=== PATIENT | female | born 1945 | race Caucasian/White ===

== ENCOUNTER → 2020-04-08 | Outpatient (CLI) | payer MEDICARE ==
[~2020-04-08] MED LIST: ALBU0.632 IH; ALBU8.5H2 PO; ATOR10TA66 PO; AZIT-21 PO; CATHETER FLUSH 10 ML SYR IV PRN; CEFD300C PO; GLIP5TAB13 PO; HOLD METFORMIN - RECEIVED CONTRAST 20 ML VIAL IV SCH; HYDR-34 PO; HYDR-3816 PO; IOHEXOL 350 MG/ML 150 ML (OMNIPAQUE 350) VIAL IV ONE; LOSA100T7 PO; LVT.1T PO; METF1000 PO; METO50TA2 PO; NS 100 ML (IVPB) BAG IV ONE; RANI150C11 PO; [UNRECOGNIZED DRUG - OTHER]
[2020-04-08 09:19] LABS: CREATININE SERUM 1.03 MG/DL (0.60-1.30)
--- NOTE | 2020-04-08 10:55 | Diagnostic Imaging Report ---
INDICATION: Essential hypertension and diabetes. Pre and postcontrast axial imaging through the abdomen, pelvis and bilateral lower extremities was performed. CT angiography protocol was utilized. Multiplanar, 3-D and MIP reformations were performed. The lung bases are clear. No discrete liver mass is detected. There are small stones within the gallbladder. No biliary ductal dilatation is seen. The pancreas and spleen are unremarkable apart from a low density in the lower pole of the spleen measuring 19 mm. This was not well-seen on prior CT from [address] was done without contrast. No adrenal mass is identified. Bilateral renal calcifications are noted which are likely combination of vascular calcifications and nephrolithiasis. There is a large ovoid calculus in the left renal pelvis measuring 12 mm x 7 mm. No ureteral calculi or hydronephrosis is detected. The small and large bowel loops are normal caliber. There is no ascites. The uterus and ovaries are unremarkable. The patient has an aorto biiliac graft. 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 The graft appears to be patent. Iliac limbs appear to be widely patent. In addition, the patient does have a right femoral-popliteal graft which appears to be widely patent. The right popliteal artery is patent. There is a moderate amount of calcified plaque in the popliteal. The anterior tibial artery is patent at its origin. This appears to occlude at the mid calf. The peroneal and and posterior tibial arteries appear to be patent to the level of the ankle on the right. On the left there is calcified plaque and multifocal disease throughout the SFA but this appears to be patent. There is multifocal disease in the popliteal artery on the left with calcified plaque. Anterior tibial artery is patent at the origin but occludes at the level of the mid calf. The peroneal and posterior tibial arteries on the left appear to be patent to the level of the ankles. IMPRESSION: 1. Aorto bifemoral graft is patent. The right femoral-popliteal graft is patent. There is multifocal disease bilaterally, as described with a two-vessel runoff at the ankles bilaterally. 2. Bilateral nephrolithiasis with large calculus in the left renal pelvis. No hydronephrosis is detected. 3. Cholelithiasis. Dictated by: Dictated on workstation # [id number]
== END ==
LOC: RAD 08:47
PROVIDERS: ATTEND Internal Medicine Cardiovascular Disease
DX: I10 Essential (primary) hypertension (principal); E11.9 Type 2 diabetes mellitus without complications; E78.2 Mixed hyperlipidemia; I73.9 Peripheral vascular disease, unspecified; K80.20 Calculus of gallbladder without cholecystitis without obstruction; N20.0 Calculus of kidney
CPT/HCPCS: 36415; 75635; 82565; 84520

== ENCOUNTER 2020-05-01 11:24 | Emergency (ER) | payer MEDICARE ==
[~2020-05-01] VITALS: Ht 160 cm; Wt 68.1 kg
[~2020-05-01 11:24] MED LIST changes: -CATHETER FLUSH 10 ML SYR IV PRN; -HOLD METFORMIN - RECEIVED CONTRAST 20 ML VIAL IV SCH; -IOHEXOL 350 MG/ML 150 ML (OMNIPAQUE 350) VIAL IV ONE; -NS 100 ML (IVPB) BAG IV ONE
--- NOTE | 2020-05-01 11:48 | ED Upper Extremity ---
General Stated Complaint: L ARM PAIN Source: patient Exam Limitations: no limitations History of Present Illness Date Seen by Provider: May 01, 2020 Time Seen by Provider: 11:45 Initial Comments To ER with left arm pain from the mid forearm up to the middle left chest radiating through to the back. Pain is slightly worsened with movement of the arm. It been present for about 3 weeks since she fell out of the camper. She does report some intermittent nausea but no diaphoresis or palpitations. She is from [facility] here visiting her daughter. She is told she has not arteries in her legs. Onset: other (3 weeks ago) Severity: moderate Pain/Injury Location: left shoulder, left arm Method of Injury: fell Modifying Factors: Worse With Movement Allergies and Home Medications Allergies Coded Allergies: No Known Drug Allergies (Unverified , 02/18/15) Home Medications Albuterol Sulfate 8.5 Gm Aer.w.adap, 1 PUFF PO Q4H PRN for SHORTNESS OF BREATH, (Reported) Atorvastatin Calcium 10 Mg Tablet, 10 MG PO DAILY, (Reported) Azithromycin 250 Mg Tab, 2 TAB PO DAILY Prescribed by: DARLENE MILLARD on 02/22/15 1244 Cefdinir 300 Mg Capsule, 300 MG PO BID Prescribed by: DARLENE MILLARD on 02/22/15 1244 Glipizide 5 Mg Tablet, 5 MG PO DAILY, (Reported) Hydrocodone Bit/Acetaminophen 1 Tab Tablet, 1 TAB PO QID PRN for PAIN, (Reported) Hydrocodone Bit/Acetaminophen 1 Ea Tablet, 1-2 EACH PO Q6H PRN for PAIN Prescribed by: GIANFRANCO MARINELLI on 03/07/15 1011 Levothyroxine Sodium 100 Mcg Tablet, 100 MCG PO DAILY, (Reported) Metformin Hcl 1,000 Mg Tablet, 1,000 MG PO BID, (Reported) Metoprolol Tartrate 50 Mg Tablet, 50 MG PO BID, (Reported) Ranitidine Hcl 150 Mg Capsule, 150 MG PO DAILY PRN for HEARTBURN, (Reported) Patient Home Medication List Home Medication List Reviewed: Yes Review of Systems Constitutional: see HPI EENTM: see HPI Respiratory: no symptoms reported Cardiovascular: see HPI, chest pain Genitourinary: no symptoms reported Musculoskeletal: see HPI Skin: no symptoms reported Psychiatric/Neurological: No Symptoms Reported Past Simdlva-Zufrub-Ghajpf Hx Patient Social History Recent Foreign Travel: No Contact w/Someone Who Travel: No Immunizations Up To Date Date of Pneumonia Vaccine: February 18, 2011 Seasonal Allergies Seasonal Allergies: No Past Medical History Appendectomy, Vascular Surgery Pneumonia, Sleep Apnea, COPD High Cholesterol, Hypertension Reproductive Disorders: No Renal Failure Abdominal Hernia, Gastroesophageal Reflux Arthritis Hyperthyroidism, Diabetes, Non-Insulin dep Cataract Loss of Vision: Denies Hearing Impairment: Hard of Hearing Family Medical History Abdominal aortic aneurysm 19 MOTHER G8 SISTER G8 SISTER Congenital heart disease 19 FATHER Physical Exam Vital Signs Vital Signs - First Documented 05/01/20 11:28 Temp 36.1 Pulse 64 Resp 18 B/P (MAP) 192/72 (112) Pulse Ox 97 Capillary Refill : Height, Weight, BMI Height: 5'3.00" Weight: 149lbs. 5.0oz. 67.779567kr; BMI Method:Stated General Appearance: WD/WN, no apparent distress, other (alert and oriented. Blo od pressure elevated at 192/72. Her right radial pulse is +3, left radial pulse nonpalpable. Both hands are warm to touch, the left may be a little more pale than the right. Given the left-sided chest pain that radiates through to the back with a pulse deficit I will get a CT angiogram. She does report a history of kidney dysfunction. I discussed with her the risks of the IV contrast worsening kidney function but the importance of obtaining a good study to evaluate the aorta/subclavian artery to ensure there is no dissection. She agrees to proceed.) HEENT: PERRL/EOMI, normal ENT inspection Neck: non-tender, full range of motion Cardiovascular: regular rate, rhythm, no murmur Respiratory: no respiratory distress, no accessory muscle use Gastrointestinal: normal bowel sounds, non tender, soft Shoulder: normal inspection, non-tender, normal ROM (she has normal range of motion of the left shoulder without swelling deformity or ecchymosis) Elbow/Forearm: normal inspection, non-tender Wrist: Yes normal inspection, Yes non-tender Neurologic/Psychiatric: alert, normal mood/affect, oriented x 3 Skin: normal color, warm/dry Progress/Results/Core Measures Results/Orders Lab Results Laboratory Tests Test 05/01/20 11:44 Range/Units White Blood Count 6.7 4.3-11.0 10^3/uL Red Blood Count 4.19 L 4.35-5.85 10^6/uL Hemoglobin 12.7 11.5-16.0 G/DL Hematocrit 39 35-52 % Mean Corpuscular Volume 93 80-99 FL Mean Corpuscular Hemoglobin 30 25-34 PG Mean Corpuscular Hemoglobin Concent 33 32-36 G/DL Red Cell Distribution Width 13.1 10.0-14.5 % Platelet Count 207 130-400 10^3/uL Mean Platelet Volume 11.2 H 7.4-10.4 FL Neutrophils (%) (Auto) 61 42-75 % Lymphocytes (%) (Auto) 29 12-44 % Monocytes (%) (Auto) 7 0-12 % Eosinophils (%) (Auto) 2 0-10 % Basophils (%) (Auto) 0 0-10 % Neutrophils # (Auto) 4.1 1.8-7.8 X 10^3 Lymphocytes # (Auto) 2.0 1.0-4.0 X 10^3 Monocytes # (Auto) 0.5 0.0-1.0 X 10^3 Eosinophils # (Auto) 0.2 0.0-0.3 10^3/uL Basophils # (Auto) 0.0 0.0-0.1 10^3/uL Sodium Level 141 135-145 MMOL/L Potassium Level 4.7 3.6-5.0 MMOL/L Chloride Level 107 98-107 MMOL/L Carbon Dioxide Level 24 21-32 MMOL/L Anion Gap 10 5-14 MMOL/L Blood Urea Nitrogen 19 H 7-18 MG/DL Creatinine 1.12 0.60-1.30 MG/DL Estimat Glomerular Filtration Rate 47 BUN/Creatinine Ratio 17 Glucose Level 280 H 70-105 MG/DL Calcium Level 9.2 8.5-10.1 MG/DL Corrected Calcium 9.4 8.5-10.1 MG/DL Total Bilirubin 0.6 0.1-1.0 MG/DL Aspartate Amino Transf (AST/SGOT) 16 5-34 U/L Alanine Aminotransferase (ALT/SGPT) 18 0-55 U/L Alkaline Phosphatase 91 40-136 U/L Troponin I < 0.028 <0.028 NG/ML Total Protein 7.2 6.4-8.2 GM/DL Albumin 3.8 3.2-4.5 GM/DL My Orders Orders - MAURILIO HARO NO EXPERIENCE Cbc With Automated Diff (05/01/20 11:40) Comprehensive Metabolic Panel (05/01/20 11:40) Ct Angio Chest W (05/01/20 11:40) Ed Iv/Invasive Line Start (05/01/20 11:40) Iohexol Injection (Omnipaque 350 Mg/Ml 1 (05/01/20 12:00) Received Contrast (Hold Metformin- Contr (05/01/20 12:00) Ns (Ivpb) (Sodium Chloride 0.9% Ivpb Bag (05/01/20 12:00) Ns Iv 1000 Ml (Sodium Chloride 0.9%) (05/01/20 12:00) Labetalol Injection (Normodyne Injection (05/01/20 12:00) Troponin I (05/01/20 12:12) Ekg Tracing (05/01/20 12:12) Us Left Up Ext Arterial 31638 (05/01/20 12:32) Medications Given in ED Current Medications Medications Dose Ordered Sig/Isa Route Start Time Stop Time Status Last Admin Dose Admin Iohexol 100 ml ONCE ONCE IV 05/01/20 12:00 05/01/20 12:01 DC 05/01/20 12:18 80 ML Labetalol HCl 10 mg ONCE ONCE IV 05/01/20 12:00 05/01/20 12:01 DC 05/01/20 12:26 10 MG Sodium Chloride 100 ml ONCE ONCE IV 05/01/20 12:00 05/01/20 12:01 DC 05/01/20 12:18 80 ML Vital Signs/I&O 05/01/20 11:28 Temp 36.1 Pulse 64 Resp 18 B/P (MAP) 192/72 (112) Pulse Ox 97 Diagnostic Imaging Diagonstic Imaging: CT Comments NAME: MARTHA RICKS [facility] REC#: [id number] PT STATUS: REG ER : 1945 PHYSICIAN: MAURILIO HARO APRN ADMIT DATE: 05/01/20/ER Signed Date of Exam:05/01/20 CT ANGIO CHEST W PROCEDURE: CT angiography of the chest with contrast. TECHNIQUE: Multiple contiguous axial images were obtained through the chest after uneventful bolus administration of intravenous contrast. 3D reconstructed CTA MIP acquisitions were also performed. Auto Exposure Controls were utilized during the CT exam to meet ALARA standards for radiation dose reduction. INDICATION: Shoulder pain. Shortness of breath. Fall 2 weeks ago. Weak pulse in the left arm. COMPARISON: Chest radiograph on 03/18/2015. FINDINGS: Diffuse atherosclerotic plaque is seen throughout the aorta and major arch vessels. There is atherosclerotic plaque throughout the left subclavian artery without evidence of focal stenosis. No evidence of dissection or aneurysm in the thoracic aorta. No evidence of pulmonary embolism in the pulmonary arteries. The heart size is within normal limits. No pericardial effusion is present. There is no mediastinal, hilar, or axillary lymphadenopathy. Centrilobular emphysema is noted, greatest in the apices. A nodule is visualized in the right lower lobe measuring 0.6 cm. There are no focal areas of consolidation. No central endobronchial obstructing lesions are identified. There is no pleural effusion or pneumothorax. The osseous structures demonstrate no acute abnormalities. There is thickening of the gallbladder. The liver appears prominent. No focal hepatic lesions are seen. No intra or extrahepatic biliary dilation is appreciated on this exam. A calculus is seen in the left renal pelvis measuring 1.1 cm with associated thickening of the wall of the collecting system. Both adrenal glands are unremarkable. IMPRESSION: 1. No evidence of dissection or aneurysm involving the thoracic aorta. There is atherosclerotic plaque throughout the thoracic aorta and great arch vessels. No focal stenosis is seen, particularly no hemodynamically significant stenosis of the left subclavian artery. 2. Calculus in the left renal pelvis measuring 1.1 cm with associated thickening of the wall of the collecting system on the left. This may represent chronic partially occlusive renal calculi. Recommend correlation with patient history and symptoms. 3. Nonspecific gallbladder wall thickening. No CT evidence of acute cholecystitis or cholelithiasis. Consider liver/gallbladder ultrasound to further evaluate. 4. Centrilobular emphysema. No focal consolidation or pulmonary masses. A nodule is present in the right lower lobe measuring 0.6 cm. Recommend followup in 6-12 months to document stability. 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 The ulnar artery has good flow. I do believe that her shoulder pain is muscular skeletal in nature now that we've excluded other life- threatening causes. We'll give her a prescription for Robaxin and topical Voltaren cream and discharged home. Impression Primary Impression: Left shoulder pain Qualified Codes: M25.512 - Pain in left shoulder Disposition: 01 HOME, SELF-CARE Condition: Stable Departure-Patient Inst. Decision time for Depature: 14:12 Referrals: ANGELA GREER MD (PCP/Family) Primary Care Physician Patient Instructions: Joint Pain Add. Discharge Instructions: 1. Muscle relaxers and topical anti-inflammatory cream as directed. Follow-up with your doctor next week. Return to ER for any concerns. Scripts Diclofenac Sodium (Voltaren) 100 Gm Gel..gram. 100 GM TP Q6H PRN for PAIN-MODERATE (5-7), #2 TUBE Prov: MAURILIO HARO APRN 05/01/20 Methocarbamol (Robaxin-750) 750 Mg Tablet 750 MG PO Q6H PRN for PAIN-MODERATE (5-7), #20 TAB Prov: MAURILIO HARO APRN 05/01/20 MAURILIO HARO APRN May 01, 2020 11:48
[2020-05-01 11:50] LABS: BASOPHILS % (AUTO) 0 % (0-10); EOSINOPHILS # (AUTO) 0.2 10^3/uL (0.0-0.3); EOSINOPHILS % (AUTO) 2 % (0-10); HEMATOCRIT 39 % (35-52); HEMOGLOBIN 12.7 G/DL (11.5-16.0); LYMPHOCYTES % (AUTO) 29 % (12-44); MEAN CORPUSCULAR HEMOGLOBIN 30 PG (25-34); MEAN CORPUSCULAR HGB CONC 33 G/DL (32-36); MEAN CORPUSCULAR VOLUME 93 FL (80-99); MEAN PLATELET VOLUME 11.2 FL (7.4-10.4); MONOCYTES # (AUTO) 0.5 X 10^3 (0.0-1.0); MONOCYTES % (AUTO) 7 % (0-12); NEUTROPHILS # (AUTO) 4.1 X 10^3 (1.8-7.8); NEUTROPHILS % (AUTO) 61 % (42-75); PLATELET COUNT 207 10^3/uL (130-400); RED CELL DISTRIBUTION WIDTH 13.1 % (10.0-14.5); WHITE BLOOD COUNT 6.7 10^3/uL (4.3-11.0)
--- NOTE | 2020-05-01 11:59 | NUR ---
TO CT PER W/C
[2020-05-01] MEDS ORDERED: NS IV 1000 ML 1,000 ML IV SCH (12:00)
[2020-05-01] MEDS ORDERED: NS 100 ML (IVPB) BAG IV ONE (12:00)
[2020-05-01] MEDS ORDERED: HOLD METFORMIN - RECEIVED CONTRAST 20 ML VIAL IV SCH (12:00)
[2020-05-01] MEDS ORDERED: LABETALOL HCL 20 MG/4 ML VIAL IV ONE ×2 (12:00→14:30)
[2020-05-01] MEDS ORDERED: IOHEXOL 350 MG/ML 100 ML (OMNIPAQUE 350) VIAL IV ONE (12:00)
[2020-05-01 12:01] LABS: ALBUMIN 3.8 GM/DL (3.2-4.5); POTASSIUM 4.7 MMOL/L (3.6-5.0)
[2020-05-01 12:03] LABS: CALCIUM 9.2 MG/DL (8.5-10.1)
[2020-05-01 12:04] LABS: TOTAL PROTEIN 7.2 GM/DL (6.4-8.2)
[2020-05-01 12:06] LABS: BILIRUBIN,TOTAL 0.6 MG/DL (0.1-1.0)
[2020-05-01 12:07] LABS: CREATININE SERUM 1.12 MG/DL (0.60-1.30)
--- NOTE | 2020-05-01 12:12 | NUR ---
CALLED AND GAVE DAUGHTER CORNELIUS LAYNE.
--- NOTE | 2020-05-01 12:45 | Diagnostic Imaging Report ---
PROCEDURE: CT angiography of the chest with contrast. TECHNIQUE: Multiple contiguous axial images were obtained through the chest after uneventful bolus administration of intravenous contrast. 3D reconstructed CTA MIP acquisitions were also performed. Auto Exposure Controls were utilized during the CT exam to meet ALARA standards for radiation dose reduction. INDICATION: Shoulder pain. Shortness of breath. Fall 2 weeks ago. Weak pulse in the left arm. COMPARISON: Chest radiograph on 03/18/2015. FINDINGS: Diffuse atherosclerotic plaque is seen throughout the aorta and major arch vessels. There is atherosclerotic plaque throughout the left subclavian artery without evidence of focal stenosis. No evidence of dissection or aneurysm in the thoracic aorta. No evidence of pulmonary embolism in the pulmonary arteries. The heart size is within normal limits. No pericardial effusion is present. There is no mediastinal, hilar, or axillary lymphadenopathy. Centrilobular emphysema is noted, greatest in the apices. A nodule is visualized in the right lower lobe measuring 0.6 cm. There are no focal areas of consolidation. No central endobronchial obstructing lesions are identified. There is no pleural effusion or pneumothorax. The osseous structures demonstrate no acute abnormalities. There is thickening of the gallbladder. The liver appears prominent. No focal hepatic lesions are seen. No intra or extrahepatic biliary dilation is appreciated on this exam. A calculus is seen in the left renal pelvis measuring 1.1 cm with associated thickening of the wall of the collecting system. Both adrenal glands are unremarkable. IMPRESSION: 1. No evidence of dissection or aneurysm involving the thoracic aorta. There is atherosclerotic plaque throughout the thoracic aorta and great arch vessels. No focal stenosis is seen, particularly no hemodynamically significant stenosis of the left subclavian artery. 2. Calculus in the left renal pelvis measuring 1.1 cm with associated thickening of the wall of the collecting system on the left. This may represent chronic partially occlusive renal calculi. Recommend correlation with patient history and symptoms. 3. Nonspecific gallbladder wall thickening. No CT evidence of acute cholecystitis or cholelithiasis. Consider liver/gallbladder ultrasound to further evaluate. 4. Centrilobular emphysema. No focal consolidation or pulmonary masses. A nodule is present in the right lower lobe measuring 0.6 cm. Recommend followup in 6-12 months to document stability. Dictated by: Dictated on workstation # [id number]
--- OUTSIDE RECORDS SUMMARY | 2020-05-01 13:00 | XMS REPORT | Continuity of Care Document ---
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 Name Role Phone Es PERALTA, Aleksandr PP Unavailable Aleksandr Suggs MD PP Unavailable Es PERALTA, Aleksandr RP Unavailable Payers Payer name Insurance type Covered democrat ID Authorization(s ) [facility] Medicare Complete CI [id number] [facility] Medicare Complete CI [id number] Problems Condition Effective Dates (start - stop) Clinical Status Unknown Family History Family Member Diagnosis Age At Onset Status Mother Cardiovascular disease N Father Cardiovascular disease N Father Diabetes mellitus N Social History Type Description Quantity Date Captured Unknown Allergies, Adverse Reactions, Alerts Substance Reaction Severity Status No Known Allergies Unknown Active Medications Medication Instructions Dosage Effective Dates (start - stop) Sta tus Comments metformin 1,000 mg tablet TAKE 1 TABLET BY ORAL ROUTE 2 TIMES EVERY DAY WITH MORNING AND EVENING MEALS 1000 MG - Active glipizide 5 mg tablet TAKE 1 TABLET BY ORAL ROUTE 2 TIMES EVERY DAY BEFORE MEALS 5 MG - Active metoprolol tartrate 50 mg tablet TAKE 1 TABLET BY ORAL ROUTE 2 TIMES EVERY DAY WITH MEALS 50 MG - Active levothyroxine 100 mcg tablet take 1 tablet by oral route every day 100 MCG - Active losartan 100 mg tablet take 1 tablet by oral route every day 10 0 MG - Active Immunizations Vaccine Date Status Comments Fluvirin vaccine (split) (3 yrs or older) reese bakari - Note: [facility] 95491-914-58 - Completed reason: New Fluvirin vaccine (split) (3 yrs or older) ordere d - Completed reason: New Results Test Name Date and Time Measure Units Reference Range Abnormal F lag Comments Unknown Vital Signs Date / Time: Height Weight BMI Pulse Rate Blood Pressure Temperatu re Respiratory Rate Body Surface Area Head Circumference BMI percentile Unknown Procedures Procedure Date Unknown Encounters Encounter Description Practice Location Reason(s) For Visit Diagnose s Date Provider [facility], [employer] [address], [place], [id number], [place] tel:[phone] Aleksandr Suggs MD Type 2 d iabetes mellitus without complicationsOther hyperlipidemiaEssential (primary) hypertensionHypothyroidism, unspecifiedPyothorax without fistulaEncounter for immunization Es [place]. [address] [place] [address] [address], [facility] [address], [place], [address], [place]. tel:[phone] Counts Include [address] [employer] [address], [place], [address], [place] tel:[phone] Aleksandr Suggs MD Es [place]. [address] [place] [address] [address], [facility] [address], [place], [address], [place]. tel:[phone] [place] [address], [place], [address], [place] tel:[phone] Aleksandr Suggs MD Es [place]. [address] [place] [address] [address], [facility] [address], [place], [address], [place]. tel:[phone] [place] [address], [place], [address], [place] tel:[phone] Aleksandr Suggs MD Es [place]. [address] [place] [address] [address], [facility] [address], [place], [address], [place]. tel:[phone] Counts Include [address] [facility] [address], [place], [address], [place] tel:[phone] Aleksandr Suggs MD Es [place]. [address] [place] [address] [address], [facility] [address], [place], [address], [place]. tel:[phone] [place] [address], [place], [address], [place] tel:[phone] 15 Es [place]. [address] [facility], [facility] [address], [place], [place], [address], [place]. tel:[phone] [facility], [address] [place] [address] [address], [place], [address], [place] tel:[phone] Aleksandr Suggs MD EmpyemaH ypothyroidismDM type 2 (diabetes mellitus, type 2)DyslipidemiaHTN (hypertension) Es [place]. [address] [facility], [facility] [address], [place], [place], [id number], [place]. tel:[phone] Advance Directives Directive Yes / No Effective Date File Name Unknown
--- OUTSIDE RECORDS SUMMARY | 2020-05-01 13:00 | XMS REPORT ---
Author Author [facility] Address [address] [address] Care Team Providers Care Clinical Care Leader Name Role Phone NO, LOCAL PHYSICIAN Unavailable Unavailable DARLENE MILLARD Unavailable GUICHO PERALTA, JEANIE Ross Unavailable Unavailable Unavailable Unavailable Unavailable Unavailable Allergies The data below is from unstructured sources Allergen Type Severity Reaction Status Last Updated No Known Drug Allergies Active 02/18/15 Encounters Encounter Date Encounter Type Encounter Diagnosis Care Provider Facility Start: Emergency department JEANIE LINDO MD V [facility] 05-01-2020 patient visit [facility] Medical Equipment No Information Goals No Information Immunizations No Information Interventions No Information Medications No Information Payers No Information Plan of Treatment The data below is from unstructured sources Discharge Date 02/22/15 2:10pm Disposition 30 STILL A PATIENT Instructions/Education Provided Comm unity-acquired Pneumonia (GEN) Prescriptions See Medications Sectio n Discharge Date 03/07/15 11:38am Disposition 30 STILL A PATIENT Instructions/Education Provided Thor acotomy (DC) Forms Provided PDI Surgical Prescriptions See Medications Sectio n Referrals (Unspecified) 03/11/15 Reason(s) for Referral: 10:45AM for suture removal GIANFRANCO MARINELLI MD (Unspecified) 03/11/15 Address: [address] [place] [id number] Reason(s) for Referral: 1045AM Discharge Date 03/07/15 11:38am Disposition 30 STILL A PATIENT Instructions/Education Provided Thor acotomy (DC) Forms Provided PDI Surgical Prescriptions See Medications Sectio n Referrals (Unspecified) 03/11/15 Reason(s) for Referral: 10:45AM for suture removal GIANFRANCO MARINELLI MD (Unspecified) 03/11/15 Address: [address] [place] [id number] [phone] Reason(s) for Referral: 1045AM Problems No Information Procedures No Information Results Test Name Value Interpreta Reference Facilit Date tion Range y Time laboratory on 2020-05-01 Albumin [Mass/Vol] 3.8 g/dL Negative 3.2-4.5 PENDING -2 2-2 g/dL [address] 07:44-0 ([id number]) 400 ALP [Catalytic 91 U/L Negative 40-136 U/L PENDING activity/Vol] [facility] [address] [place] [address] 07:44-0 ([id number]) 400 ALT [Catalytic 18 U/L Negative 0-55 U/L PENDING activity/Vol] [facility] [address] [place] [address] 07:44-0 ([id number]) 400 Anion gap 10 mmol/L Negative 5-14 PENDING [Moles/Vol] mmol/L [address] 07:44-0 ([id number]) 400 AST [Catalytic 16 U/L Negative 5-34 U/L PENDING activity/Vol] [address] 07:44-0 ([id number]) 400 Basophils (Bld) 0.0 10*3/uL Negative 0.0-0.1 PENDING 05-01 [#/Vol] 10*3/uL [address] 07:44-0 ([id number]) 400 Basophils/100 WBC 0 % Negative 0-10 % PENDING 05-01 (Bld) [facility] [address] [place] [address] 07:44-0 ([id number]) 400 Bilirubin [Mass/Vol] 0.6 mg/dL Negative 0.1-1.0 PENDING -2 mg/dL [facility] [address] [place] [address] 07:44-0 ([id number]) 400 Calcium [Mass/Vol] 9.2 mg/dL Negative 8.5-10.1 PENDING 07-2 2-2 mg/dL [facility] [address] [place] [address] 07:44-0 ([id number]) 400 Calcium [Mass/Vol] 9.4 mg/dL Negative 8.5-10.1 PENDING 07-2 2-2 mg/dL [facility] [address] [place] [address] 07:44-0 ([id number]) 400 Chloride [Moles/Vol] 107 mmol/L Negative 98-107 PENDING 0 -22-2 mmol/L [facility] 07:44-0 ([id number]) 400 CO2 [Moles/Vol] 24 mmol/L Negative 21-32 PENDING mmol/L [facility] 020 [facility] 07:44-0 ([id number]) 400 Creatinine 1.12 mg/dL Negative 0.60-1.30 PENDING [Mass/Vol] mg/dL [facility] 020 [facility] 07:44-0 ([id number]) 400 Creatinine and 47 Invalid PENDING Glomerular Interpreta LOC[facility]IO 020 filtration tion Code N [facility] 07:44-0 rate.predicted panel ([id number]) 400 - Serum, Plasma or Blood Eosinophils (Bld) 0.2 10*3/uL Negative 0.0-0.3 PENDING [#/Vol] 10*3/uL [facility] 020 [facility] 07:44-0 ([id number]) 400 Eosinophils/100 WBC 2 % Negative 0-10 % PENDING (Bld) [facility] 020 [facility] 07:44-0 ([id number]) 400 Erythrocyte 13.1 % Negative 10.0-14.5 PENDING distribution width % LOCATIO 020 (RBC) [Ratio] [facility] 07:44-0 (80590) 400 Glucose [Mass/Vol] 280 mg/dL High 70-105 PENDING 04-11 2-2 mg/dL [facility] 020 [facility] 07:44-0 ([id number]) 400 Hematocrit (Bld) 39 % Negative 35-52 % PENDING [Volume fraction] [facility] 020 [facility] 07:44-0 ([id number]) 400 Hemoglobin (Bld) 12.7 g/dL Negative 11.5-16.0 PENDING [Mass/Vol] g/dL [facility] 020 [facility] 07:44-0 ([id number]) 400 Lymphocytes (Bld) 2.0 10*3/uL Negative 1.0-4.0 PENDING [#/Vol] 10*3 LOC[facility] 020 [facility] 07:44-0 (11073) 400 Lymphocytes/100 WBC 29 % Negative 12-44 % PENDING (Bld) [facility] 07:44-0 ([id number]) 400 MCH (RBC) [Entitic 30 pg Negative 25-34 pg PENDING 04-11 2-2 mass] [facility] Paula [facility] 07:44-0 ([id number]) 400 MCHC (RBC) 33 g/dL Negative 32-36 g/dL PENDING [Mass/Vol] [facility] 07:44-0 ([id number]) 400 MCV (RBC) [Entitic 93 Negative 80-99 PENDING 04-11 2-2 vol] [foz_us] [facility] Paula [facility] 07:44-0 (66790) 400 Monocytes (Bld) 0.5 10*3/uL Negative 0.0-1.0 PENDING 05-01 [#/Vol] 10*3 [facility] Paula [facility] 07:44-0 ([id number]) 400 Monocytes/100 WBC 7 % Negative 0-12 % PENDING 05-01 (Bld) [facility] Paula [facility] 07:44-0 (10630) 400 Neutrophils (Bld) 4.1 10*3/uL Negative 1.8-7.8 PENDING [#/Vol] 10*[address] 07:44-0 (75881) 400 Neutrophils/100 WBC 61 % Negative 42-75 % PENDING (Bld) [facility] Paula [facility] 07:44-0 ([id number]) 400 Platelet mean volume 11.2 High 7.4-10.4 PENDING (Bld) [Entitic vol] [foz_us] [facility] 07:44-0 (88715) 400 Platelets (Bld) 207 10*3/uL Negative 130-400 PENDING 05-01 [#/Vol] 10*3/uL [facility] Paula [facility] 07:44-0 (48433) 400 Potassium 4.7 mmol/L Negative 3.6-5.0 PENDING [Moles/Vol] mmol/L [facility] Paula [facility] 07:44-0 ([id number]) 400 Protein [Mass/Vol] 7.2 g/dL Negative 6.4-8.2 PENDING 04-11 2-2 g/dL [facility] 020 N [facility] 07:44-0 ([id number]) 400 RBC (Bld) [#/Vol] 4.19 10*6/uL Low 4.35-5.85 PENDING 10*6/uL LOC[facility]IO 020 N S 07:44-0 (30010) 400 Sodium [Moles/Vol] 141 mmol/L Negative 135-145 PENDING mmol/L LOC[facility]IO 020 N S 07:44-0 ([id number]) 400 Urea nitrogen 19 mg/dL High 7-18 mg/dL PENDING [Mass/Vol] [facility] 020 N [facility] 07:44-0 ([id number]) 400 Urea 17 mg/mg Invalid PENDING nitrogen/Creatinine Interpreta LOCATIO 020 [Mass ratio] tion Code N [facility] 07:44-0 (81897) 400 WBC (Bld) [#/Vol] 6.7 10*3/uL Negative 4.3-11.0 PENDING 10*3/uL [facility] 020 N [facility] 07:44-0 ([id number]) 400 Social History No Information Vital Signs The data below is from unstructured sources Vital Response Date/Time Temperature (Fahrenheit) 97.4 degree s F (97.6 - 99.5) Temperature (Calculated Celsius) 36. 42815 degrees C (36.4 - 37.5) Temperature Source Tympanic Pulse Rate (adult) 78 bpm (60 - 90) Respiratory Rate 20 bpm (12 - 24) O2 Sat by Pulse Oximetry 94 % (88 - 100) Blood Pressure 206/79 mm Hg Pain Pain Intensity 0 Height (Feet) 5 feet Height (Inches) 3.00 inches Height (Calculated Centimeters) 160. 207851 cm Weight (Pounds) 155 pounds Weight (Ounces) 0.3 oz Weight (Calculated Grams) 92198.323 gm Weight (Calculated Kilograms) 70.315 323 kilograms Calculated BMI 27.45 Vital Response Date/Time Temperature (Fahrenheit) 98.2 degree s F (97.6 - 99.5) Temperature (Calculated Celsius) 36. 39064 degrees C (36.4 - 37.5) Temperature Source Temporal Pulse Rate (adult) 62 bpm (60 - 90) Respiratory Rate 18 bpm (12 - 24) O2 Sat by Pulse Oximetry 95 % (88 - 100) Blood Pressure 170/73 mm Hg Pain Pain Intensity 0 Height (Feet) 5 feet Height (Inches) 3.00 inches Height (Calculated Centimeters) 160. 503857 cm Weight (Pounds) 149 pounds Weight (Ounces) 5.0 oz Weight (Calculated Grams) 72226.011 gm Weight (Calculated Kilograms) 67.727 011 kilograms Calculated BMI 26.74 Vital Response Date/Time Temperature (Fahrenheit) 98.2 degree s F (97.6 - 99.5) Temperature (Calculated Celsius) 36. 22809 degrees C (36.4 - 37.5) Temperature Source Temporal Pulse Rate (adult) 62 bpm (60 - 90) Respiratory Rate 18 bpm (12 - 24) O2 Sat by Pulse Oximetry 95 % (88 - 100) Blood Pressure 170/73 mm Hg Pain Pain Intensity 0 Height (Feet) 5 feet Height (Inches) 3.00 inches Height (Calculated Centimeters) 160. 987839 cm Weight (Pounds) 149 pounds Weight (Ounces) 5.0 oz Weight (Calculated Grams) 67523.011 gm Weight (Calculated Kilograms) 67.727 011 kilograms Calculated BMI 26.74 Functional Status The data below is from unstructured sources Query Response Date Faraz rded Comprehension Ability Understands Co ncepts February 18, 2015 8:05pm Query Response Date Faraz rded Comprehension Ability Understands Co ncepts March 06, 2015 4:00pm Query Response Date Faraz rded Comprehension Ability Understands Co ncepts March 06, 2015 4:00pm Mental Status No Information Advance Directives Directive Response Recor ded Date/Time Advance Directives No 3:31pm Health Care Power of Camper Assembler No 02/18/15 3:31pm Organ Donor No 02/18/15 3:31pm Resuscitation Status DNR-Pt Request 02/18/15 3:31pm Directive Response Recor ded Date/Time Advance Directives Yes 0 02/25/15 5:12pm Health Care Power of Camper Assembler No 02/25/15 5:12pm Organ Donor No 02/25/15 5:12pm Resuscitation Status Full Code 02/25/15 5:12pm Discharge Instructions No hospital discharge instructions. Additional Source Comments This clinical document has been generated using [employer] software that has been certified by the Office of the National Coordinator for Health Information Technology (ONC 15.99.04.3023.Diam.31.00.0.487348) and the National Committee for Host Coordinator (NCQA, as an eMeasure certified technology). FOR RECORDS PERTAINING TO PATIENTS WHO ARE OR HAVE BEEN ENROLLED IN A CHEMICAL D EPENDENCY/SUBSTANCE ABUSE PROGRAM, SOME INFORMATION MAY BE OMITTED. This clinica l summary was aggregated from multiple sources. Caution should be exercised in using it in the provision of clinical care. This summary normalizes information from multiple sources, and as a consequence, information in this document may ma terially change the coding, format and clinical context of patient data. In juanjo tion, data may be omitted in some cases. CLINICAL DECISIONS SHOULD BE BASED ON T HE PRIMARY CLINICAL RECORDS. [employer] provides no warranty or guara ntee of the accuracy or completeness of information in this document.The followi ng information is based on time limited clinical information
--- OUTSIDE RECORDS SUMMARY | 2020-05-01 13:00 | XMS REPORT | Continuity of Care Document ---
Author Author Kasey Suggs Organization [facility] Address [address] [facility] 208 [place], [place] [id number] Phone Unavailable Care Team Providers Care Manager File Name Role Phone Es PERALTA, Aleksandr HERNANDEZ Unavailable Es PERALTA, Aleksandr HERNANDEZ Unavailable Es PERALTA, Aleksandr RP Unavailable Payers Payer name Insurance type Covered alliance party ID Authorization(s ) [facility] Medicare Complete CI [id number] [facility] Medicare Complete CI [id number] Problems Condition Effective Dates (start - stop) Clinical Status Unknown Family History Family Member Diagnosis Age At Onset Status Mother Cardiovascular disease N Father Cardiovascular disease N Father Diabetes mellitus N Social History Type Description Quantity Date Captured Alcohol Use Details No Caffeine Use Details No Tobacco Use Status No Smoking Status Former smoker Smoking Tobacco Use Details Cigarette: Age Started: 13, Age Stopped: 67, Years Used 52 Cigarette: 1 per day, Pack Year: 54 Allergies, Adverse Reactions, Alerts Substance Reaction Severity [...] every day 10 0 MG - Active Tirosint 100 mcg capsule take 1 capsule by oral route every day 100 MCG - No Longer Active ProAir HFA 90 mcg/actuation aerosol inhaler inhale 2 p uff by inhalation route every 4 - 6 hours as needed as needed - No Longer Active glipizide 5 mg tablet take 1 Tablet by oral route 2 times every day before meals 5 MG - No Longer Active losartan 100 mg tablet take 1 tablet by oral route every day 10 0 MG - No Longer Active metoprolol tartrate 50 mg tablet take 1 tablet by oral route 2 times every day with meals 50 MG - No Longer Active metformin 1,000 mg tablet take 1 tablet by oral route 2 times every day with morning and evening meals 1000 MG - No Longer Active Immunizations Vaccine Date Status Comments Fluvirin vaccine (split) (3 yrs or older) comple bakari - Note: [facility] 19775-557-68 - Completed reason: New Fluvirin vaccine (split) (3 yrs or older) ordere d - Completed reason: New Results Test Name Date and Time Measure Units Reference Range Abnormal F lag Comments Unknown Vital Signs Date / Time: Height Weight BMI Pulse Rate Blood Pressure Temperatu re Respiratory Rate Body Surface Area Head Circumference BMI percentile /15:00:00 62.99 in 143.60 lbs 25.44 kg/meter(2) 67 /min 146/62 mm[Hg] 97.4 F 16 /min 1.70 meter(2) Procedures Procedure Date OFFICE/OUTPATIENT VISIT, NEW Encounters Encounter Description Practice Location Reason(s) For Visit Diagnose s Date Provider [facility], [facility] [address], [place], [id number], tel:[phone] Aleksandr Suggs MD Type 2 d iabetes mellitus without complicationsOther hyperlipidemiaEssential (primary) hypertensionHypothyroidism, unspecifiedPyothorax without fistulaEncounter for immunization Es Brandon. [address] [place] [address] [address], [place], [id number], [place]. tel:[phone] [facility], [facility], [address], [place], [id number], tel:[phone] Aleksandr Suggs MD Es [place]. [address] [place] [address] [address], [place], [id number], [place]. tel:[phone] [address], [place], [address], tel:[phone] Aleksandr Suggs MD Es Brandon. [address] [place] [address], [place] [address], [address], [place]. tel:[phone] [address], [place], [address], [place] tel:[phone] Aleksandr Suggs MD Es [place]. [address] [place] [address], [id number], [place]. tel:[phone] [address], [id number], tel:[phone] Aleksandr Suggs MD Es Brandon. [address] [place] [address], [address], [place]. tel:[phone] OFFICE/OUTPATIENT VISIT, [address], [place], [address], [place] tel:[phone] Aleksandr Suggs MD esta blish (chief complaint)pneumonia (chief complaint)hypertension (chief complaint)hyperlipidemia (chief complaint)diabetes (chief complaint) EmpyemaHypothyroidismDM type 2 (diabetes mellitus, type 2)DyslipidemiaHTN (hypertension) Es Brandon. [address] [place] [address], [place] [address], [address], [place]. tel:[phone] Advance Directives Directive Yes / No Effective Date File Name Unknown WARNING:The information contained in this section is historical and is provided for information only and does not constitute a legal document or any assurance t hat the information is still accurate. Please verify the information with the ho lder of the legal document before using it for clinical purposes.
--- OUTSIDE RECORDS SUMMARY | 2020-05-01 13:01 | XMS REPORT | Continuity of Care Document ---
Author Author Kasey Suggs Organization [facility] Address 305 [facility] 208 [place], [place] [id number] Phone Care Team Providers Care Sports Recruiter Name Role Phone Es PERALTA, Aleksandr HERNANDEZ Unavailable Es PERALTA, Aleksandr HERNANDEZ Unavailable Es PERALTA, Aleksandr RP Unavailable Payers Payer name Insurance type Covered green party ID Authorization(s ) [facility] Medicare Complete CI [id number] AARP Medicare Complete CI [id number] Problems Condition Effective Dates (start - stop) [...] Dates (start - stop) Sta tus Comments metoprolol tartrate 50 mg tablet TAKE 1 TABLET BY ORAL ROUTE 2 TIMES EVERY DAY WITH MEALS 50 MG - Active metformin 1,000 mg tablet TAKE 1 TABLET BY ORAL ROUTE 2 TIMES EVERY DAY WITH MORNING AND EVENING MEALS 1000 MG - Active glipizide 5 mg tablet TAKE 1 TABLET BY ORAL ROUTE 2 TIMES EVERY DAY BEFORE MEALS 5 MG - Active levothyroxine 100 mcg tablet take 1 tablet by oral route every day 100 MCG - Active losartan 100 mg tablet take 1 tablet by oral route every day 10 0 MG - Active Immunizations Vaccine Date Status Comments Fluvirin vaccine (split) (3 yrs or older) comple bakari - Note: [facility] [id number] - Completed reason: New Fluvirin vaccine (split) [...] Reason(s) For Visit Diagnose s Date Provider [facility], [facility] [employer] [address], [place], [place], [address], tel:[phone] Aleksandr Suggs MD Es Brandon. [address] [place] [address] Pkwy, [facility] [address], [place], [address], [place]. tel:[phone] [place] [address] [address] [employer] [address], [place], [address], [place] tel:[phone] Aleksandr Suggs MD Type 2 d iabetes mellitus without complicationsOther hyperlipidemiaEssential (primary) hypertensionHypothyroidism, unspecifiedPyothorax without fistulaEncounter for immunization Es Brandon. [address] [place] [address] Pkwy, [facility] [address], [place], [id number], [place]. tel:[phone] [address] [employer] [address], [place], [address], [place] tel:[phone] Aleksandr Suggs MD Es Brandon. [address] [place] [address] Pkwy, [facility] [address], [place], [address], [place]. tel:[phone] [address], [place], [address], [place] tel:[phone] Aleksandr Suggs MD Es Brandon. [address] [place] [address] Pkwy, [facility] [address], [place], [address], [place]. tel:[phone] [place] [address], [place], [address], [place] tel:[phone] Aleksandr Suggs MD Es Brandon. [address] [place] [address] Pkw[address], [facility] [address], [place], [address], [place]. tel:[phone] [address], [address], [place] tel:[phone] Aleksandr Suggs MD Es Brandon. [address] [facility], [facility] [address], [place], [place], [address], [place]. tel:[phone] [facility], [address] [place] [address] [address], [place], [address], tel:[phone] Aleksandr Suggs MD EmpyemaH ypothyroidismDM type 2 (diabetes mellitus, type 2)DyslipidemiaHTN (hypertension) Es Brandon. 305 [facility], [facility] [address], [place], [place], [id number], [place]. tel:[phone] Advance Directives Directive Yes / No Effective Date File Name Unknown
--- OUTSIDE RECORDS SUMMARY | 2020-05-01 13:01 | XMS REPORT | Continuity of Care Document ---
Author Author Kasey Suggs Organization [facility] Address 305 [facility] [address] [place], [place] [id number] Phone Care Team Providers Care Water Resource Agent Name Role Phone Es PERALTA, Aleksandr HERNANDEZ Unavailable Es PERALTA, Aleksandr HERNANDEZ Unavailable Es PERALTA, Aleksandr RP Unavailable Payers Payer name Insurance type Covered democrat ID Authorization(s ) [facility] Medicare Complete CI [id number] AARP Medicare Complete CI [id number] Problems Condition Effective Dates (start - stop) Clinical Status Unknown Family History Family Member Diagnosis Age At Onset Status Mother Cardiovascular disease N Father Cardiovascular disease N Father Diabetes mellitus N Social History Type Description Quantity Date Captured Alcohol Use Details No Caffeine Use Details No Tobacco Use Status No Smoking Status No Allergies, Adverse Reactions, Alerts Substance Reaction Severity Status No Known Allergies Unknown Active Medications Medication Instructions Dosage Effective Dates (start - stop) Sta tus Comments glipizide 5 mg tablet TAKE 1 TABLET BY ORAL ROUTE 2 TIMES EVERY DAY BEFORE MEALS 5 MG - Active metoprolol tartrate 50 mg tablet TAKE 1 TABLET BY ORAL ROUTE 2 TIMES EVERY DAY WITH MEALS 50 MG - Active losartan 100 mg tablet TAKE 1 TABLET BY ORAL ROUTE EVERY DAY 100 MG - Active levothyroxine 100 mcg tablet TAKE 1 TABLET BY MOUTH EVERY DAY 10 0 MCG - Active My Favorite Multiple oral liquid - Active metformin 500 mg tablet take 1 tablet by oral route once daily - Active Jardiance 25 mg tablet take 1 tablet by oral route every da y in the morning 25 MG - Active atorvastatin 10 mg tablet take 1 tablet by oral route every day 10 MG - Active Zithromax Z-Marcelino 250 mg tablet take 2 tablet by oral ro cahto every day for 1 day then 1 tablet (250 mg) by oral route once daily for 4 days 500 MG - No Longer Active Immunizations Vaccine Date Status Comments Fluvirin vaccine (split) (3 yrs or older) reese villegas - Note: [facility] [id number] - Completed reason: New Fluvirin vaccine (split) [...] Reason(s) For Visit Diagnose s Date Provider [facility] [address], [id number], tel:[phone] Aleksandr Suggs MD Es Brandon. [address] [place] [address], [id number], . tel:[phone] [facility] [address] [place] [address], [id number], tel:[phone] Aleksandr Suggs MD Type 2 d iabetes mellitus without complicationsOther hyperlipidemiaHypothyroidism, unspecifiedEssential (primary) hypertension Es Brandon. [address] [place] [address], [id number], [place]. tel:[phone] [facility] [address] [place] [address], [id number], [place] tel:[phone] Aleksandr Suggs MD Es Brandon. [address] [place], [place] [address]y, [address], [id number], [place]. tel:[phone] [facility] [address] [place] [address], [id number], tel:[phone] Aleksandr Suggs MD Es Brandon. [address] [place], [place] [address]y, [place] [address], [place], [address], . tel:[phone] [facility], [address] [place] [address] [address], [place], [address], tel:[phone] Aleksandr Suggs MD Type 2 d iabetes mellitus without complicationsOther hyperlipidemiaEssential (primary) hypertensionHypothyroidism, unspecifiedPyothorax without fistulaEncounter for immunization Es Brandon. [address] [place] [address], [place] [address], [place], [address], . tel:[phone] [facility], [facility] [address], [place], [address], tel:[phone] Aleksandr Suggs MD EmpyemaH ypothyroidismDM type 2 (diabetes mellitus, type 2)DyslipidemiaHTN (hypertension) Es Brandon. [address] [place] [address], [place] [address], [place], [address], . tel:[phone] Advance Directives Directive Yes / No Effective Date File Name Unknown
--- OUTSIDE RECORDS SUMMARY | 2020-05-01 13:01 | XMS REPORT | Continuity of Care Document ---
Author Author Kasey Suggs Organization [facility] Address 305 [facility] [place] 208 [place], [place] [id number] Phone Care Team Providers Care Customer Service Analyst Name Role Phone Es PERALTA, Aleksandr HERNANDEZ Unavailable Es PERALTA, Aleksandr HERNANDEZ Unavailable Es PERALTA, Aleksandr RP Unavailable Payers Payer name Insurance type Covered green party ID Authorization(s ) [facility] Medicare Complete CI [id number] AARP Medicare Complete CI [id number] Problems Condition Effective Dates (start - stop) [...] in the morning 25 MG - Active losartan 100 mg tablet TAKE 1 TABLET BY ORAL ROUTE EVERY DAY 100 MG - Active metoprolol tartrate 50 mg tablet TAKE 1 TABLET BY ORAL ROUTE 2 TIMES EVERY DAY WITH MEALS 50 MG - Active atorvastatin 10 mg tablet take 1 tablet by oral route every day 10 MG - Active metformin 1,000 mg tablet TAKE 1 TABLET BY ORAL ROUTE 2 TIMES EVERY DAY WITH MORNING AND EVENING MEALS 1000 MG - No Longer Ac tive Immunizations Vaccine Date Status Comments Fluvirin vaccine (split) (3 yrs or older) reese bakari - Note: [facility] [id number] - Completed reason: New Fluvirin vaccine (split) [...] Reason(s) For Visit Diagnose s Date Provider On License Of [facility], [place] [address], [id number], tel:[phone] Aleksandr Suggs MD Es Brandon. [address] [place] [address], [id number], [place]. tel:[phone] [facility] [place] [address], [id number], [place] tel:[phone] Aleksandr Suggs MD Es Brandon. [address] [place] [address], [id number], [place]. tel:[phone] [facility] [place] [address], [id number], tel:[phone] Aleksandr Suggs MD Type 2 d iabetes mellitus without complicationsOther hyperlipidemiaHypothyroidism, unspecifiedEssential (primary) hypertension Es Brandon. [address] [place] [address], [id number], [place]. tel:[phone] [place] [address] [address], [id number], tel:[phone] Aleksandr Suggs MD Es Brandon. [address] [place] [address], [id number], [place]. tel:[phone] On License Of [facility], [address] [place], [place] [address] [address], [place], [place], [id number], [place] tel:[phone] Aleksandr Suggs MD Es Brandon. [address] [place] [address], [facility] [address], [place], [id number], [place]. tel:[phone] [address], [place], [id number], [place] tel:[phone] Aleksandr Suggs MD Es Brandon. [address] [place] [address], [place], [id number], [place]. tel:[phone] On License Of [facility], [address] [place] [address] [address], [place], [address], [place] tel:[phone] Aleksandr Suggs MD Type 2 d iabetes mellitus without complicationsOther hyperlipidemiaEssential (primary) hypertensionHypothyroidism, unspecifiedPyothorax without fistulaEncounter for immunization Es Brandon. [address] [place] [address], [id number], [place]. tel:[phone] On License Of [facility], [address] [place] [address] [address], [place], [address], [place] tel:[phone] Aleksandr Suggs MD EmpyemaH ypothyroidismDM type 2 (diabetes mellitus, type 2)DyslipidemiaHTN (hypertension) Es Brandon. [address] [place] [address], [facility] [address], [place], [id number], [place]. tel:[phone] Advance Directives Directive Yes / No Effective Date File Name Unknown
--- OUTSIDE RECORDS SUMMARY | 2020-05-01 13:01 | XMS REPORT | Continuity of Care Document ---
Author Author Kasey Suggs Organization [facility] Address 305 [facility] 208 [place], [place] [id number] Phone Care Team Providers Care Silk Printer Name Role Phone Es PERALTA, Aleksandr HERNANDEZ Unavailable Es PERALTA, Aleksandr HERNANDEZ Unavailable Es PERALTA, Aleksandr RP Unavailable Payers Payer name Insurance type Covered libertarian ID Authorization(s ) [facility] Medicare Complete CI [id number] AARP Medicare Complete CI [id number] Problems Condition Effective Dates (start - stop) [...] DAY BEFORE MEALS 5 MG - Active losartan 100 mg tablet TAKE 1 TABLET BY ORAL ROUTE EVERY DAY 100 MG - Active LEVOTHYROXINE 0.100MG (100MCG) TAB TAKE 1 TABLET BY MOUTH EVERY DAY 100 MCG - Active metoprolol tartrate 50 mg tablet [...] yrs or older) comple bakari - Note: [facility] [id number] - Completed reason: New Fluvirin vaccine (split) [...] Reason(s) For Visit Diagnose s Date Provider [facility], [employer] [address], [id number], tel:[phone] Aleksandr Suggs MD Es Brandon. [address] [place] [address], [id number], [place]. tel:[phone] [place] [address] [employer] [place] [address], [id number], tel:[phone] Aleksandr Suggs MD Es Brandon. [address] [place] [address], [id number], [place]. tel:[phone] [place] [address] [employer] [place] [address], [id number], [place] tel:[phone] Aleksandr Suggs MD Es Brandon. [address] [place] [address], [id number], [place]. tel:[phone] [place] [address] [employer] [place] [address], [id number], tel:[phone] Aleksandr Suggs MD Es Brandon. [address] [place] [address], [id number], [place]. tel:[phone] [place] [address] [employer] [address] [place] [address], [id number], [place] tel:[phone] Aleksandr Suggs MD Type 2 d iabetes mellitus without complicationsOther hyperlipidemiaEssential (primary) hypertensionHypothyroidism, unspecifiedPyothorax without fistulaEncounter for immunization Es Brandon. [address] [place] [address], [id number], [place]. tel:[phone] [facility], [address] [place] [address] [address], [place], [address], tel:[phone] Aleksandr Suggs MD Es Brandon. [address] [place] [address], [id number], . tel:[phone] [facility], [address] [place] [address] [address], [place], [address], tel:[phone] Aleksandr Suggs MD EmpyemaH ypothyroidismDM type 2 (diabetes mellitus, type 2)DyslipidemiaHTN (hypertension) Es Brandon. [address] [place] [address], [place] [address], [id number], . tel:[phone] Advance Directives Directive Yes / No Effective Date File Name Unknown
--- OUTSIDE RECORDS SUMMARY | 2020-05-01 13:01 | XMS REPORT | Continuity of Care Document ---
Author Author Kasey Suggs Organization [facility] Address [address] [facility] 208 [place], [place] [id number] Phone Care Team Providers Care R&D Engineer Name Role Phone Es PERALTA, Aleksandr HERNANDEZ Unavailable Es PERALTA, Aleksandr HERNANDEZ Unavailable Es PERALTA, Aleksandr RP Unavailable Payers Payer name Insurance type Covered libertarian ID Authorization(s ) [facility] Medicare Complete CI [id number] AARP Medicare Complete CI [id number] Problems Condition Effective Dates (start - stop) [...] Dates (start - stop) Sta tus Comments My Favorite Multiple oral liquid - Active [...] DAY WITH MEALS 50 MG - Active glipizide 5 mg tablet TAKE 1 TABLET BY ORAL ROUTE 2 TIMES EVERY DAY BEFORE MEALS 5 MG - Active atorvastatin 10 mg tablet take 1 tablet by oral route every day 10 MG - Active LEVOTHYROXINE 0.100MG (100MCG) TAB TAKE 1 TABLET BY MOUTH EVERY DAY 100 MCG - Active glipizide 5 mg tablet TAKE 1 TABLET BY ORAL ROUTE 2 TIMES EVERY DAY BEFORE MEALS 5 MG - No Longer Active Immunizations Vaccine Date Status Comments Fluvirin vaccine (split) (3 yrs or older) reese bakari - Note: [facility] [id number] - Completed reason: New Fluvirin vaccine (split) [...] Visit Diagnose s Date Provider [facility], [employer] [address] [place] [address], [id number], tel:[phone] Aleksandr Suggs MD Es Brandon. [address] [place] [address], [id number], [place]. tel:[phone] [facility] [employer] [address] [place] [address], [id number], [place] tel:[phone] Aleksandr Suggs MD Es Brandon. [address] [place] [address], [id number], [place]. tel:[phone] [facility] [employer] [address], [id number], tel:[phone] Aleksandr Suggs MD Es Brandon. [address] [place] [address], [id number], [place]. tel:[phone] [facility] [employer] [address] [place] [address], [id number], [place] tel:[phone] Aleksandr Suggs MD Es Brandon. [address] [place] [address], [id number], [place]. tel:[phone] [facility] [employer] [address] [place] [address], [id number], tel:[phone] Aleksandr Suggs MD Es Brandon. [address] [place] [address], [id number], [place]. tel:[phone] [address], [place], [address], tel:[phone] Aleksandr Suggs MD Type 2 d iabetes mellitus without complicationsOther hyperlipidemiaEssential (primary) hypertensionHypothyroidism, unspecifiedPyothorax without fistulaEncounter for immunization Es Brandon. [address] [place] [address], [id number], [place]. tel:[phone] [facility], [address] [place] [address], [place], [id number], tel:[phone] Aleksandr Suggs MD EmpyemaH ypothyroidismDM type 2 (diabetes mellitus, type 2)DyslipidemiaHTN (hypertension) Es Brandon. [address] [place] [address], [facility] [address], [place], [id number], [place]. tel:[phone] Advance Directives Directive Yes / No Effective Date File Name Unknown
--- OUTSIDE RECORDS SUMMARY | 2020-05-01 13:01 | XMS REPORT | Continuity of Care Document ---
Author Author Kasey Suggs Organization [facility] Address 305 [facility] 208 [place], [place] [phone] Phone Care Team Providers Care Electrical Service Technician Name Role Phone Es PERALTA, Aleksandr HERNANDEZ Unavailable Es PERALTA, Aleksandr HERNANDEZ Unavailable Es PERALTA, Aleksandr RP Unavailable Payers Payer name Insurance type Covered republican ID Authorization(s ) [facility] Medicare Complete CI [id number] AARP Medicare Complete CI [id number] Problems Condition Effective Dates (start - stop) [...] yrs or older) reese bakari - Note: [facility] [id number] - Completed reason: New Fluvirin vaccine (split) [...] Reason(s) For Visit Diagnose s Date Provider [facility], [facility] [employer] [address], [place], [place], [id number], tel:[phone] Aleksandr Suggs MD Es Brandon. [address] [place] [address] [address]kw[address], [facility] [address], [place], [id number], [place]. tel:[phone] [place] [address] [address], [place], [address], [place] tel:[phone] Aleksandr Suggs MD Type 2 d iabetes mellitus without complicationsOther hyperlipidemiaEssential (primary) hypertensionHypothyroidism, unspecifiedPyothorax without fistulaEncounter for immunization Es Brandon. [address] [place] [address] [address]kw[address], [facility] [address], [place], [id number], [place]. tel:[phone] [address] [place] [address], [place], [address], [place] tel:[phone] Aleksandr Suggs MD Es Brandon. [address] [place] [address] [address], [facility] [address], [place], [id number], [place]. tel:[phone] [address], [place], [address], [place] tel:[phone] Aleksandr Suggs MD Es Brandon. [address] [place] [address] [address], [facility] [address], [place], [address], [place]. tel:[phone] [place] [address], [place], [address], [place] tel:[phone] Aleksandr Suggs MD Es Brandon. [address] [place] [address] [address], [facility] [address], [place], [address], [place]. tel:[phone] [address], [place], [address], [place] tel:[phone] Aleksandr Suggs MD Es Brandon. 305 [facility], [facility] 208, [place], [place], [address], [place]. tel:[phone] [facility], [address] [place] [address] [address], [place], [address], tel:[phone] Aleksandr Suggs MD EmpyemaH ypothyroidismDM type 2 (diabetes mellitus, type 2)DyslipidemiaHTN (hypertension) Es Brandon. 305 [facility], [facility] 208, [place], [place], [address], [place]. tel:[phone] Advance Directives Directive Yes / No Effective Date File Name Unknown
--- OUTSIDE RECORDS SUMMARY | 2020-05-01 13:01 | XMS REPORT | Continuity of Care Document ---
Author Author Kasey Suggs Organization [facility] Address 305 [facility] 208 [place], [place] [phone] Phone Care Team Providers Care Imagery Intelligence Name Role Phone Es PERALTA, Aleksandr HERNANDEZ Unavailable Es PERALTA, Aleksandr HERNANDEZ Unavailable Es PERALTA, Aleksandr RP Unavailable Payers Payer name Insurance type Covered republican ID Authorization(s ) [facility] Medicare Complete CI [id number] AARP Medicare Complete CI [id number] Problems Condition Effective Dates (start - stop) [...] DAY WITH MEALS 50 MG - Active Immunizations Vaccine Date Status Comments Fluvirin vaccine (split) (3 yrs or older) comple bakari - Note: [facility] 61577-338-86 - Completed reason: New Fluvirin vaccine (split) [...] Reason(s) For Visit Diagnose s Date Provider [facility], [address] [place] [address] [place] [address], [id number], tel:[phone] Aleksandr Suggs MD Es Brandon. [address] [place] [address] [address]kw[address], [facility] [address], [place], [address], [place]. tel:[phone] [address] [place] [address], [place], [address], [place] tel:[phone] Aleksandr Suggs MD Es Brandon. [address] [place] [address] [facility] [address], [place], [address], [place]. tel:[phone] [address] [place] [address], [id number], tel:[phone] Aleksandr Suggs MD Es Brandon. [address] [place] [address] [address]kw[address], [facility] [address], [place], [id number], [place]. tel:[phone] [address] [employer] [facility] [address], [place], [address], [place] tel:[phone] Aleksandr Suggs MD Es Brandon. [address] [place] [address] [address]kw[address], [facility] [address], [place], [address], [place]. tel:[phone] [address] [place] [address], [place], [address], [place] tel:[phone] Aleksandr Suggs MD Type 2 d iabetes mellitus without complicationsOther hyperlipidemiaEssential (primary) hypertensionHypothyroidism, unspecifiedPyothorax without fistulaEncounter for immunization Es Brandon. [address] [place] [address] [address]kw[address], [facility] [address], [place], [address], [place]. tel:[phone] [address] [place] [address], [place], [address], [place] tel:[phone] Aleksandr Suggs MD Es Brandon. 305 [facility], [facility] 208, [place], [place], [address], [place]. tel:[phone] [facility], [address] [place] [address] [address], [place], [address], tel:[phone] Aleksandr Suggs MD EmpyemaH ypothyroidismDM type 2 (diabetes mellitus, type 2)DyslipidemiaHTN (hypertension) Es Brandon. [address] [facility], [facility] 208, [place], [place], [address], [place]. tel:[phone] Advance Directives Directive Yes / No Effective Date File Name Unknown
--- OUTSIDE RECORDS SUMMARY | 2020-05-01 13:01 | XMS REPORT | Continuity of Care Document ---
Author Author Kasey Suggs Organization [facility] Address 305 [facility] 208 [place], [place] [phone] Phone Care Team Providers Care General Utility Worker Name Role Phone Es PERALTA, Aleksandr HERNANDEZ Unavailable Es PERALTA, Aleksandr HERNANDEZ Unavailable Es PERALTA, Aleksandr RP Unavailable Payers Payer name Insurance type Covered democrat ID Authorization(s ) [facility] Medicare Complete CI [id number] AARP Medicare Complete CI [id number] Problems Condition Effective Dates (start - stop) [...] MOUTH EVERY DAY 100 MCG - Active losartan 100 mg tablet TAKE 1 TABLET BY ORAL ROUTE EVERY DAY 100 MG - No Longer Active Immunizations Vaccine Date Status Comments Fluvirin vaccine (split) (3 yrs or older) [facility] - Note: [facility] 52157-463-78 - Completed reason: New Fluvirin vaccine (split) [...] Reason(s) For Visit Diagnose s Date Provider [facility], [employer] [address] [place] [address], [id number], tel:[phone] Aleksandr Suggs MD Es Brandon. [address] [place] [address], [id number], [place]. tel:[phone] Counts Include [facility] [employer] [address], [id number], tel:[phone] Aleksandr Suggs MD Es Brandon. [address] [place] [address], [id number], [place]. tel:[phone] Counts Include [facility] [employer] [address], [id number], tel:[phone] Aleksandr Suggs MD Es Brandon. [address] [place] [address], [id number], [place]. tel:[phone] Counts Include [facility] [employer] [address] [place] [address], [id number], [place] tel:[phone] Aleksandr Suggs MD Es Brandon. [address] [place] [address], [id number], [place]. tel:[phone] Counts Include [address] [facility] [employer] [address] [place] [address], [id number], tel:[phone] Aleksandr Suggs MD Type 2 d iabetes mellitus without complicationsOther hyperlipidemiaEssential (primary) hypertensionHypothyroidism, unspecifiedPyothorax without fistulaEncounter for immunization Es Brandon. 305 [facility], [facility] 208, [place], [place], [address], [place]. tel:[phone] [facility], [address] [place] [address] [address], [place], [address], [place] tel:[phone] Aleksandr Suggs MD EmpyemaH ypothyroidismDM type 2 (diabetes mellitus, type 2)DyslipidemiaHTN (hypertension) Es Brandon. 305 [facility], [facility] 208, [place], [place], [address], [place]. tel:[phone] Advance Directives Directive Yes / No Effective Date File Name Unknown
--- OUTSIDE RECORDS SUMMARY | 2020-05-01 13:01 | XMS REPORT | Continuity of Care Document ---
Author Author Kasey Suggs Organization [facility] Address 305 [facility] 208 [place], [place] [id number] Phone Care Team Providers Care Sports Instructor Name Role Phone Es PERALTA, Aleksandr HERNANDEZ Unavailable Es PERALTA, Aleksandr HERNANDEZ Unavailable Es PERALTA, Aleksandr RP Unavailable Payers Payer name Insurance type Covered constitution party ID Authorization(s ) [facility] Medicare Complete CI [id number] [facility] Medicare Complete CI [id number] Problems Condition Effective Dates (start - stop) Clinical Status Unknown Family History Family Member Diagnosis Age At Onset Status Mother Cardiovascular disease N Father Cardiovascular disease N Father Diabetes mellitus N Social History Type Description Quantity Date Captured Alcohol Use Details No Caffeine Use Details No Tobacco Use Status No Smoking Status Former smoker Smoking Tobacco Use Details Cigarette: No Details Available Cigarette: Age Started: 13, Age Stopped: 67, Years Used 52 Cigarette: No Details Available Cigarette: 1 per day, Pack Year: 52 [...] AND EVENING MEALS 1000 MG - Active losartan 100 mg tablet TAKE 1 TABLET BY ORAL ROUTE EVERY DAY 100 MG - Active LEVOTHYROXINE 0.100MG (100MCG) TAB TAKE 1 TABLET BY MOUTH EVERY DAY 100 MCG - Active Immunizations Vaccine Date Status Comments Fluvirin vaccine (split) (3 yrs or older) comple bakari - Note: [facility] [id number] - Completed reason: New Fluvirin vaccine (split) (3 yrs or older) ordere d - Completed reason: New Results Test Name Date and Time Measure Units Reference Range Abnormal F lag Comments Unknown Vital Signs Date / Time: Height Weight BMI Pulse Rate Blood Pressure Temperatu re Respiratory Rate Body Surface Area Head Circumference BMI percentile /13:24:00 62.99 in 150.60 lbs 26.68 kg/meter(2) 69 /min 136/58 mm[Hg] 97.8 F 16 /min 1.74 meter(2) Procedures Procedure Date Fluvirin vacc, 3 yrs & >, im Admin influenza virus vac OFFICE/OUTPATIENT VISIT, EST Encounters Encounter Description Practice Location Reason(s) For Visit Diagnose s Date Provider [facility], [facility] [employer] [address], [id number], tel:On The [phone] Aleksandr Suggs MD Es Brandon. [address] [place] [address], [id number], [place]. tel:[phone] [place] [address] [employer] [address], [id number], tel:[phone] Aleksandr Suggs MD Es Brandon. [address] [place] [address], [id number], [place]. tel:[employer] Run [phone] [facility] [employer] [address] [place] [address], [id number], tel:[phone] Aleksandr Suggs MD Es Brandon. [address] [place] [address], [id number], [place]. tel:[phone] OFFICE/OUTPATIENT VISIT, [facility] [employer] [address] [place] [address], [id number], tel:[phone] Aleksandr Suggs MD diab etes (chief complaint)hypertension (chief complaint)Hypothyroidism (chief complaint) Type 2 diabetes mellitus without complicationsOther hyperlipidemiaEssential (primary) hypertensionHypothyroidism, unspecifiedPyothorax without fistulaEncounter for immunization Es Brandon. 305 [facility], [facility] 208[place], [place], [id number], [place]. tel:[phone] [facility], [address] [place] [address] [address], [place], [address], [place] tel:[phone] Aleksandr Suggs MD EmpyemaH ypothyroidismDM type 2 (diabetes mellitus, type 2)DyslipidemiaHTN (hypertension) Es Brandon. 305 [facility], [facility] 208, [place], [place], [id number], [place]. tel:[phone] Advance Directives Directive Yes / No Effective [...]
--- OUTSIDE RECORDS SUMMARY | 2020-05-01 13:01 | XMS REPORT | Continuity of Care Document ---
Author Author Kasey Suggs Organization [facility] Address 305 [facility] 208 [place], [place] [id number] Phone Care Team Providers Care Property Insurance Inspector Name Role Phone Es PERALTA, Aleksandr HERNANDEZ Unavailable Es PERALTA, Aleksandr HERNANDEZ Unavailable Es PERALTA, Aleksandr RP Unavailable Payers Payer name Insurance type Covered democrat ID Authorization(s ) [facility] Medicare Complete [place] [id number] AARP Medicare Complete CI [id number] Problems Condition Effective Dates (start - stop) [...] Dates (start - stop) Sta tus Comments atorvastatin 10 mg tablet take 1 tablet by oral route every day 10 MG - Active glipizide 5 mg tablet TAKE 1 TABLET BY ORAL ROUTE 2 TIMES EVERY DAY BEFORE MEALS 5 MG - Active Jardiance 25 mg tablet take 1 tablet by oral route every da y in the morning 25 MG - Active levothyroxine 125 mcg tablet take 1 tablet by oral route every day 125 MCG - Active losartan 100 mg tablet TAKE 1 TABLET BY ORAL ROUTE EVERY DAY 100 MG - Active metformin 500 mg tablet take 1 tablet by oral route once daily - Active cephalexin 500 mg capsule take 1 capsule by oral route every 8 hours 500 MG - Active BLOOD SUGAR DIAGNOSTIC 1 Daily MISCELLANEOUS use one s trip to test three times daily - Active lancets use 1 lancet to test three times daily 016 - Active One Touch Ultra Blue Kit MISCELL KIT use 1 meter to test blood gluose - Active metoprolol tartrate 50 mg tablet TAKE 1 TABLET BY ORAL ROUTE 2 TIMES EVERY DAY WITH MEALS 50 MG - Active My Favorite Multiple oral liquid - Active glipizide 5 mg tablet TAKE 1 TABLET BY ORAL ROUTE 2 TIMES EVERY DAY BEFORE MEALS 5 MG - No Longer Active losartan 100 mg tablet TAKE 1 TABLET BY ORAL ROUTE EVERY DAY 100 MG - No Longer Active levothyroxine 100 mcg tablet TAKE 1 TABLET BY MOUTH EVERY DAY 10 0 MCG - No Longer Active metformin 500 mg tablet take 1 tablet by oral route once daily - No Longer Active Jardiance 25 mg tablet take 1 tablet by oral route every da y in the morning 25 MG - No Longer Active atorvastatin 10 mg tablet take 1 tablet by oral route every day 10 MG - No Longer Active Immunizations Vaccine Date Status Comments Fluvirin vaccine (split) (3 yrs or older) [facility] - Note: [facility] 74689-724-46 - Completed reason: New Fluvirin vaccine (split) [...] For Visit Diagnose s Date Provider Healthcare [facility], [facility] [address], [place], [id number], [place] tel:[phone] Aleksandr Suggs MD Paronych ia of thumb, rightRight medial knee painHypothyroidism, unspecifiedOther hyperlipidemiaType 2 diabetes mellitus without complications [place] . [address] [place] [address], [address], [place], [place], [id number], [place]. tel:[phone] [facility], [address] [facility] [address], [place], [place], [address], [place] tel:[phone] Aleksandr Suggs MD Es [place]. 305 [facility], [facility] [address], [place], [address], [place]. tel:[phone] [facility], [address] [place] [address] [place], [place], [address], [place] tel:[phone] Aleksandr Suggs MD Type 2 d iabetes mellitus without complicationsOther hyperlipidemiaHypothyroidism, unspecifiedEssential (primary) hypertension Es [place]. [address] [place] [address], [facility] [address], [place], [address], [place]. tel:[phone] [facility], [address] [place] [address] [place], [place], [address], [place] tel:[phone] Aleksandr Suggs MD Es [place]. [address] [place] [address], [facility] [address], [place], [address], [place]. tel:[phone] [facility], [address] [place] [address] [address] [place] [address], [id number], [place] tel:[phone] Aleksandr Suggs MD Es [place]. [address] [place] [address], [facility] [address], [place], [address], [place]. tel:[phone] [facility], [address] [place] [address] [address], [place], [address], [place] tel:[phone] Aleksandr Suggs MD Type 2 d iabetes mellitus without complicationsOther hyperlipidemiaEssential (primary) hypertensionHypothyroidism, unspecifiedPyothorax without fistulaEncounter for immunization Es [place]. [address] [place] [address], [facility] [address], [place], [address], [place]. tel:[phone] [facility], [address] [place] [address] [address], [place], [address], [place] tel:[phone] Aleksandr Suggs MD EmpyemaH ypothyroidismDM type 2 (diabetes mellitus, type 2)DyslipidemiaHTN (hypertension) Es [place]. [address] [place] [address], [address], [place], [place], [address], [place]. tel:[phone] Advance Directives Directive Yes / No Effective Date File Name Unknown
--- OUTSIDE RECORDS SUMMARY | 2020-05-01 13:01 | XMS REPORT | Continuity of Care Document ---
Author Author Kasey Suggs Organization [facility] Address 305 [facility] 208 [place], [place] [phone] Phone Unavailable Care Team Providers Care Software Testing Specialist Name Role Phone Es PERALTA, Aleksandr HERNANDEZ Unavailable Es PERALTA, Aleksandr HERNANDEZ Unavailable Es PERALTA, Aleksandr RP Unavailable Payers Payer name Insurance type Covered alliance party ID Authorization(s ) [facility] Medicare Complete CI [id number] AARP Medicare Complete CI [id number] Problems Condition Effective Dates (start - stop) [...] AND EVENING MEALS 1000 MG - Active levothyroxine 100 mcg tablet take 1 tablet by oral route every day 100 MCG - No Longer Active levothyroxine 100 mcg tablet take 1 tablet by oral route every day 100 MCG - No Longer Active metoprolol tartrate 50 mg tablet take 1 tablet by oral route 2 times every day with meals 50 MG - No Longer Active metformin 1,000 mg tablet take 1 tablet by oral route 2 times every day with morning and evening meals 1000 MG - No Longer Ac tive losartan 100 mg tablet take 1 tablet by oral route every day 10 0 MG - No Longer Active glipizide 5 mg tablet take 1 Tablet by oral route 2 times every day before meals 5 MG - No Longer Active Immunizations Vaccine Date Status Comments Fluvirin vaccine (split) (3 yrs or older) comple bakari - Note: [facility] 09154-236-74 - Completed reason: New Fluvirin vaccine (split) [...] For Visit Diagnose s Date Provider [facility], [employer] [address], [id number], tel:[phone] Aleksandr Suggs MD Es [place]. [address] [place] [address], [id number], . tel:[phone] [facility] [employer] [address], [id number], tel:[phone] Aleksandr Suggs MD Es [place]. [address] [place] [address], [id number], [place]. tel:[phone] [facility] [employer] [address] [place] [address], [id number], tel:[phone] Aleksandr Suggs MD Es [place]. [address] [place] [address], [id number], [place]. tel:[phone] [facility] [employer] [address], [id number], [place] tel:[phone] Aleksandr Suggs MD Type 2 d iabetes mellitus without complicationsOther hyperlipidemiaEssential (primary) hypertensionHypothyroidism, unspecifiedPyothorax without fistulaEncounter for immunization Es [place]. [address] [place] [address], [facility] 208[place], [place], [address], [place]. tel:[phone] [facility], [address] [place] [address] [place] [address], [id number], [place] tel:[phone] Aleksandr Suggs MD Es [place]. [address] [place] [address], [facility] 208[place], [place], [address], [place]. tel:[phone] [facility], [address] [place] [address] [place] [address], [id number], tel:[phone] Aleksandr Suggs MD Es [place]. [address] [place] [address], [address], [id number], [place]. tel:[phone] [facility], [address] [place] [address] [address], [place], [address], [place] tel:[phone] Aleksandr Suggs MD EmpyemaH ypothyroidismDM type 2 (diabetes mellitus, type 2)DyslipidemiaHTN (hypertension) Es [place]. [address] [place] [address], [facility] 208[place], [place], [address], [place]. tel:[phone] Advance Directives Directive Yes / No Effective Date File Name Unknown
--- OUTSIDE RECORDS SUMMARY | 2020-05-01 13:01 | XMS REPORT | Continuity of Care Document ---
Author Author Kasey Suggs Organization [facility] Address 305 [facility] 208 [place], [place] [id number] Phone Unavailable Care Team Providers Care Logistics Program Manager Name Role Phone Es PERALTA, Aleksandr HERNANDEZ Unavailable Es PERALTA, Aleksandr HERNANDEZ Unavailable Es PERALTA, Aleksandr RP Unavailable Payers Payer name Insurance type Covered democrat ID Authorization(s ) [facility] Medicare Complete CI [id number] [facility] Medicare Complete CI [id number] Problems Condition Effective Dates (start - stop) [...] EVERY DAY WITH MEALS 50 MG - No Longer Active metoprolol tartrate 50 mg tablet TAKE 1 TABLET BY ORAL ROUTE 2 TIMES EVERY DAY WITH MEALS 50 MG - No Longer Active Immunizations Vaccine Date Status Comments Fluvirin vaccine (split) (3 yrs or older) [facility]ese [facility] - Note: [facility] 49695-293-82 - Completed reason: New Fluvirin vaccine (split) [...] Reason(s) For Visit Diagnose s Date Provider [facility], [employer] [address] [place] [address], [id number], tel:[phone] Aleksandr Suggs MD Es [place]. [address] [place] [address], [id number], . tel:[phone] [facility] [employer] [address], [id number], tel:[phone] Aleksandr Suggs MD Es [place]. [address] [place] [address], [id number], [place]. tel:[phone] [facility] [employer] [address], [id number], tel:[phone] Aleksandr Suggs MD Es [place]. [address] [place] [address], [id number], [place]. tel:[phone] [facility] [employer] [address] [place] [address], [id number], [place] tel:[phone] Aleksandr Suggs MD Es [place]. [address] [place] [address], [id number], [place]. tel:[phone] [facility] [employer] [address] [place] [address], [id number], tel:[phone] Aleksandr Suggs MD Type 2 d iabetes mellitus without complicationsOther hyperlipidemiaEssential (primary) hypertensionHypothyroidism, unspecifiedPyothorax without fistulaEncounter for immunization Es [place]. 305 [facility], [facility] 208, [place], [place], [id number], [place]. tel:[phone] [facility], [address] [place] [address] [address], [place], [place], [address], [place] tel:[phone] Aleksandr Suggs MD EmpyemaH ypothyroidismDM type 2 (diabetes mellitus, type 2)DyslipidemiaHTN (hypertension) Es [place]. 305 [facility], [facility] 208, [place], [place], [id number], [place]. tel:[phone] Advance Directives Directive Yes / No Effective Date File Name Unknown
--- OUTSIDE RECORDS SUMMARY | 2020-05-01 13:01 | XMS REPORT | Continuity of Care Document ---
Author Author Kasey Suggs Organization [facility] Address 305 [facility] 208 [place], [place] [id number] Phone Care Team Providers Care Machine Presser Name Role Phone Es PERALTA, Aleksandr HERNANDEZ Unavailable Es PERALTA, Aleksandr HERNANDEZ Unavailable Es PERALTA, Aleksandr RP Unavailable Payers Payer name Insurance type Covered republican ID Authorization(s ) [facility] Medicare Complete CI [id number] AARP Medicare Complete CI [id number] Problems Condition Effective Dates (start - stop) [...] DAY WITH MEALS 50 MG - Active metoprolol tartrate 50 mg tablet TAKE 1 TABLET BY ORAL ROUTE 2 TIMES EVERY DAY WITH MEALS 50 MG - No Longer Active Immunizations Vaccine Date Status Comments Fluvirin vaccine (split) (3 yrs or older) [facility] - Note: [facility] 19827-483-80 - Completed reason: New Fluvirin vaccine (split) [...] Reason(s) For Visit Diagnose s Date Provider [facility], [facility] [address] [employer] [address] [place] [address], [id number], tel:[phone] Aleksandr Suggs MD Es [place]. [address] [place] [address], [id number], [place]. tel:[phone] [place] [address] [employer] [address], [id number], tel:[phone] Aleksandr Suggs MD Es [place]. [address] [place] [address], [id number], . tel:[phone] [place] [address] [employer] [address], [id number], tel:[phone] Aleksandr Suggs MD Es [place]. [address] [place] [address], [id number], [place]. tel:[phone] [place] [address] [employer] [address], [id number], tel:[phone] Aleksandr Suggs MD Es [place]. [address] [place] [address], [id number], [place]. tel:[phone] [facility] [employer] [address] [place] [address], [id number], [place] tel:[phone] Aleksandr Suggs MD Type 2 d iabetes mellitus without complicationsOther hyperlipidemiaEssential (primary) hypertensionHypothyroidism, unspecifiedPyothorax without fistulaEncounter for immunization Es [place]. [address] [place] [address], [id number], [place]. tel:[phone] [facility], [address] [place] [address] [address], [place], [address], [place] tel:[phone] Aleksandr Suggs MD Es [place]. [address] [place] [address], [id number], . tel:[phone] [facility], [address] [place] [address] [address], [place], [address], [place] tel:[phone] Aleksandr Suggs MD EmpyemaH ypothyroidismDM type 2 (diabetes mellitus, type 2)DyslipidemiaHTN (hypertension) Es [place]. [address] [place] [address], [id number], . tel:[phone] Advance Directives Directive Yes / No Effective Date File Name Unknown
--- OUTSIDE RECORDS SUMMARY | 2020-05-01 13:01 | XMS REPORT | Continuity of Care Document ---
Author Author Kasey Suggs Organization [facility] Address 305 [facility] 208 [place], [place] [id number] Phone Unavailable Care Team Providers Care Sound Controller Name Role Phone Es PERALTA, Aleksandr PP Unavailable Aleksandr Suggs MD PP Unavailable Es PERALTA, Aleksandr RP Unavailable Payers Payer name Insurance type Covered republican ID Authorization(s ) [facility] Medicare Complete CI [id number] [facility] Medicare Complete CI [id number] Problems Condition Effective Dates (start - stop) [...] comple bakari - Note: [facility] 23202-584-54 - Completed reason: New Fluvirin vaccine (split) [...] Reason(s) For Visit Diagnose s Date Provider [facility], [facility] [place] [employer] [address], [place], [id number], tel:[phone] Aleksandr Suggs MD Es [place]. [address] [place] [address], [id number], [place]. tel:[phone] [address] [employer] [address], [place], [address], [place] tel:[phone] Aleksandr Suggs MD Es [place]. [address] [place] [address], [id number], [place]. tel:[phone] [address] [employer] [address], [place], [address], tel:[phone] Aleksandr Suggs MD Es [place]. [address] [place] [address], [id number], [place]. tel:[phone] [address] [employer] [address], [place], [address], [place] tel:[phone] Aleksandr Suggs MD Es [place]. [address] [place] [address], [id number], [place]. tel:[phone] [place] [address] [employer] [address], [place], [address], [place] tel:[phone] Aleksandr Suggs MD Type 2 d iabetes mellitus without complicationsOther hyperlipidemiaEssential (primary) hypertensionHypothyroidism, unspecifiedPyothorax without fistulaEncounter for immunization Es [place]. [address] [place] [address] [address], [facility] [address], [place], [id number], [place]. tel:[phone] [address] [employer] [address], [place], [address], [place] tel:[phone] 15 Es [place]. [address] [place] [address], [facility] 208, [place], [place], [address], [place]. tel:[phone] [facility], [address] [place] [address] [address], [place], [address], [place] tel:[phone] Aleksandr Suggs MD EmpyemaH ypothyroidismDM type 2 (diabetes mellitus, type 2)DyslipidemiaHTN (hypertension) Es [place]. [address] [facility], [facility] 208, [place], [place], [id number], [place]. tel:[phone] Advance Directives Directive Yes / No Effective Date File Name Unknown
--- OUTSIDE RECORDS SUMMARY | 2020-05-01 13:01 | XMS REPORT | Continuity of Care Document ---
Author Author Kasey Suggs Organization [facility] Address [address] [facility] 208 [place], [place] [phone] Phone Care Team Providers Care Apple Turner Name Role Phone Es PERALTA, Aleksandr HERNANDEZ Unavailable Es PERALTA, Aleksandr HERNANDEZ Unavailable Es PERALTA, Aleksandr RP Unavailable Payers Payer name Insurance type Covered green party ID Authorization(s ) [facility] Medicare Complete CI [id number] [facility] Medicare Complete CI [id number] Problems Condition Effective Dates (start - stop) [...] yrs or older) comple bakari - Note: [facility] 07712-540-06 - Completed reason: New Fluvirin vaccine (split) [...] Reason(s) For Visit Diagnose s Date Provider [facility], [employer] [address] [place] [address], [id number], tel:[phone] Aleksandr Suggs MD Es [place]. [address] [place] [address], [id number], . tel:[phone] [facility], [employer] [address] [place] [address], [id number], tel:[phone] Aleksandr Suggs MD Es [place]. [address] [place] [address], [id number], [place]. tel:[phone] [facility] [employer] [address] [place] [address], [id number], tel:[phone] Aleksandr Suggs MD Es [place]. [address] [place] [address], [address], [id number], [place]. tel:[phone] [facility] [employer] [address] [place] [address], [id number], [place] tel:[phone] Aleksandr Suggs MD Es [place]. [address] [place] [address], [facility] [address], [place], [id number], [place]. tel:[phone] [facility] [employer] [address] [place] [address], [id number], tel:[phone] Aleksandr Suggs MD Type 2 d iabetes mellitus without complicationsOther hyperlipidemiaEssential (primary) hypertensionHypothyroidism, unspecifiedPyothorax without fistulaEncounter for immunization Es [place]. 305 [facility], [facility] [address], [place], [id number], [place]. tel:[phone] [facility], [address] [place] [address] [address], [place], [address], tel:[phone] Aleksandr Suggs MD Es [place]. [address] [place] [address], [facility] [address], [place], [id number], [place]. tel:[phone] [facility], [address] [place] [address] [address], [place], [address], [place] tel:[phone] Aleksandr Suggs MD EmpyemaH ypothyroidismDM type 2 (diabetes mellitus, type 2)DyslipidemiaHTN (hypertension) Es [place]. [address] [place] [address], [facility] [address], [place], [id number], . tel:[phone] Advance Directives Directive Yes / No Effective Date File Name Unknown
--- OUTSIDE RECORDS SUMMARY | 2020-05-01 13:02 | XMS REPORT | Continuity of Care Document ---
Author Author Kasey Suggs Organization [facility] Address 305 [facility] 208 [place], [place] [phone] Phone Care Team Providers Care Dental Laboratory Worker Name Role Phone Es PERALTA, Aleksandr HERNANDEZ Unavailable Es PERALTA, Aleksandr HERNANDEZ Unavailable Es PERALTA, Aleksandr RP Unavailable Payers Payer name Insurance type Covered republican ID Authorization(s ) [facility] Medicare Complete [place] [id number] AARP Medicare Complete CI [id number] Problems Condition Effective Dates (start - stop) [...] Sta tus Comments atorvastatin 10 mg tablet TAKE 1 TABLET BY ORAL ROUTE EVERY DAY 10 MG - Active glipizide 5 mg [...] My Favorite Multiple oral liquid - Active Immunizations Vaccine Date Status Comments Fluvirin vaccine (split) (3 yrs or older) reese villegas - Note: [facility] 31210-953-04 - Completed reason: New Fluvirin vaccine (split) [...] Visit Diagnose s Date Provider [facility] [address], [id number], tel:[phone] Aleksandr Suggs MD Es [place]. [address] [place] [address], [id number], . tel:[phone] [facility] [address] [place] [address], [id number], tel:[phone] Aleksandr Suggs MD 208 Parony lashanda of thumb, rightRight medial knee painHypothyroidism, unspecifiedOther hyperlipidemiaType 2 diabetes mellitus without complications Es [place] . [address] [place] [address], [id number], [place]. tel:[phone] [facility] [address] [place] [address], [id number], [place] tel:[phone] Aleksandr Suggs MD Es [place]. [address] [place] [address], [place], [id number], [place]. tel:[phone] [facility] [address] [place] [address], [id number], tel:[phone] Aleksandr Suggs MD 208 Type 2 diabetes mellitus without complicationsOther hyperlipidemiaHypothyroidism, unspecifiedEssential (primary) hypertension Es [place]. [address] [facility], [facility] 208, [place], [place], [id number], [place]. tel:[phone] [facility], [address] [place] [address] [address], [place], [address], tel:[phone] Aleksandr Suggs MD 208 Es [place]. [address] [place] [address], [facility] 208[place], [place], [id number], [place]. tel:[phone] [facility], [address] [place] [address] [facility] [address], [place], [place], [address], [place] tel:[phone] Aleksandr Suggs MD 208 Type 2 diabetes mellitus without complicationsOther hyperlipidemiaEssential (primary) hypertensionHypothyroidism, unspecifiedPyothorax without fistulaEncounter for immunization Es [place]. [address] [place] [address], [facility] [address], [place], [id number], [place]. tel:[phone] [facility], [address] [place] [address] [address], [place], [address], [place] tel:[phone] Aleksandr Suggs MD Empyem aHypothyroidismDM type 2 (diabetes mellitus, type 2)DyslipidemiaHTN (hypertension) Es [place]. [address] [place] [address], [facility] 208[place], [place], [id number], [place]. tel:[phone] Advance Directives Directive Yes / No Effective Date File Name Unknown
--- OUTSIDE RECORDS SUMMARY | 2020-05-01 13:02 | XMS REPORT | Continuity of Care Document ---
Author Author Kasey Suggs Organization [facility] Address 305 [facility] [address] [place], [place] [address] Phone Unavailable Care Team Providers Care Combatant Swimmer Name Role Phone Es PERALTA, Aleksandr HERNANDEZ Unavailable Es PERALTA, Aleksandr HERNANDEZ Unavailable Es PERALTA, Aleksandr RP Unavailable Payers Payer name Insurance type Covered republican ID Authorization(s ) [facility] Medicare Complete CI [id number] [facility] Medicare Complete [place] [id number] Problems Condition Effective Dates (start - stop) Clinical Status Unknown Family History Family Member Diagnosis Age At Onset Status Mother Cardiovascular disease N Father Cardiovascular disease N Father Diabetes mellitus N Social History Type Description Quantity Date Captured Alcohol Use Details No Caffeine Use Details No Tobacco Use Status Ex-cigarette smoker 14 Smoking Status Former smoker Smoking Tobacco Use [...] My Favorite Multiple oral liquid - Active Jardiance 25 mg tablet take 1 tablet by oral route every da y in the morning 25 MG - No Longer Active metformin 500 mg tablet take 1 tablet by oral route once daily - No Longer Active losartan 100 mg tablet TAKE 1 TABLET BY ORAL ROUTE EVERY DAY 100 MG - No Longer Active Immunizations Vaccine Date Status Comments Fluvirin vaccine (split) (3 yrs or older) comple bakari - Note: [facility] 02256-105-32 - Completed reason: New Fluvirin vaccine (split) (3 yrs or older) ordere d - Completed reason: New Results Test Name Date and Time Measure Units Reference Range Abnormal F lag Comments Unknown Vital Signs Date / Time: Height Weight BMI Pulse Rate Blood Pressure Temperatu re Respiratory Rate Body Surface Area Head Circumference BMI percentile /13:54:00 62.99 in 154.60 lbs 27.39 kg/meter(2) 70 /min 130/58 mm[Hg] 98.0 F 16 /min 1.77 meter(2) Procedures Procedure Date OFFICE/OUTPATIENT VISIT, EST Encounters Encounter Description Practice Location Reason(s) For Visit Diagnose s Date Provider Healthcare [facility], [address] [facility] [address], [place], [address], [place] tel:[phone] Aleksandr Suggs MD Es Brandon. [address] [place] [address], [facility] [address], [place], [place], [address], [place]. tel:[phone] [facility], [address] [employer] [address], [place], [place], [address], [place] tel:[phone] Aleksandr Suggs MD 208 Parony lashanda of thumb, rightRight medial knee painHypothyroidism, unspecifiedOther hyperlipidemiaType 2 diabetes mellitus without complications Es silver. [address] [facility], [address], [place], [place], [address], [place]. tel:[phone] [address] [facility] [address], [place], [place], [address], [place] tel:[phone] Aleksandr Suggs MD Es [place]. [address] [facility], [address], [place], [place], [address], [place]. tel:[phone] OFFICE/OUTPATIENT VISIT, [facility], [address] [place] [address] [address], [place], [place], [address], [place] tel:[phone] Aleksandr Suggs MD 208 diab etes (chief complaint)hypertension (chief complaint)Hypothyroidism (chief complaint) Type 2 diabetes mellitus without complic ationsOther hyperlipidemiaHypothyroidism, unspecifiedEssential (primary) hypertension Es Brandon. [address] [place] [address], [facility] [address], [address], [place]. tel:[phone] [address] [facility] [address], [address], [place] tel:[phone] Aleksandr Suggs MD Type 2 diabetes mellitus without complicationsOther hyperlipidemiaEssential (primary) hypertensionHypothyroidism, unspecifiedPyothorax without fistulaEncounter for immunization Es Brandon. [address] [facility], [address], [place], [place], [address], [place]. tel:[phone] [address] [facility] [address], [place], [place], [address], [place] tel:[phone] Aleksandr Suggs MD 208 Empyem aHypothyroidismDM type 2 (diabetes mellitus, type 2)DyslipidemiaHTN (hypertension) Es Brandon. [address] [facility], [address], [place], [place], [address], [place]. tel:[phone] Advance Directives Directive Yes / No Effective [...]
--- OUTSIDE RECORDS SUMMARY | 2020-05-01 13:02 | XMS REPORT | Continuity of Care Document ---
Author Author Kasey Suggs Organization [facility] Address 305 [facility] [address] [place], [place] [address] Phone Care Team Providers Care Secondary Teacher Name Role Phone Es PERALTA, Aleksandr HERNANDEZ Unavailable Es PERALTA, Aleksandr HERNANDEZ Unavailable Es PERALTA, Aleksandr RP Unavailable Payers Payer name Insurance type Covered constitution party ID Authorization(s ) [facility] Medicare Complete CI [id number] AARP Medicare Complete CI [id number] Problems Condition Effective Dates (start - stop) [...] MEALS 5 MG - No Longer Active atorvastatin 10 mg tablet take 1 tablet by oral route every day 10 MG - No Longer Active metformin 1,000 mg tablet TAKE 1 TABLET BY ORAL ROUTE 2 TIMES EVERY DAY WITH MORNING AND EVENING MEALS 1000 MG - No Longer Ac tive Immunizations Vaccine Date Status Comments Fluvirin vaccine (split) (3 yrs or older) comple bakari - Note: [facility] 56612-142-66 - Completed reason: New Fluvirin vaccine (split) [...] Visit Diagnose s Date Provider [facility], [employer] [facility] [address], [place], [address], tel:[phone] Aleksandr Suggs MD Parony lashanda of thumb, rightRight medial knee painHypothyroidism, unspecifiedOther hyperlipidemiaType 2 diabetes mellitus without complications Es Brandon . [address] [place] [address], [facility] [address], [place], [address], [place]. tel:[phone] [facility] [employer] [facility] [address], [place], [address], tel:[phone] Aleksandr Suggs MD [address] Es Brandon. [address] [place] [address], [facility] [address], [place], [place], [address], [place]. tel:[phone] [facility] [employer] [facility] [address], [place], [address], [place] tel:[phone] Aleksandr Suggs MD 208 Type 2 diabetes mellitus without complicationsOther hyperlipidemiaHypothyroidism, unspecifiedEssential (primary) hypertension Es Brandon. 305 [facility], [facility] [address], [place], [address], [place]. tel:[phone] [address], [place], [address], [place] tel:[phone] Aleksandr Suggs MD 208 Es Brandon. [address] [place] [address], [facility] [address], [place], [address], [place]. tel:[phone] [facility], [address] [place] [address] [address], [place], [address], tel:[phone] Aleksandr Suggs MD 208 Type 2 diabetes mellitus without complicationsOther hyperlipidemiaEssential (primary) hypertensionHypothyroidism, unspecifiedPyothorax without fistulaEncounter for immunization Es Brandon. [address] [place] [address], [facility] [address], [place], [address], [place]. tel:[phone] [facility], [address] [place] [address] [address], [place], [address], [place] tel:[phone] Aleksandr Suggs MD 208 Empyem aHypothyroidismDM type 2 (diabetes mellitus, type 2)DyslipidemiaHTN (hypertension) Es Brandon. 305 [facility], [facility] [address], [place], [address], [place]. tel:[phone] Advance Directives Directive Yes / No Effective Date File Name Unknown
--- OUTSIDE RECORDS SUMMARY | 2020-05-01 13:02 | XMS REPORT ---
Author Organization Unknown Address [address] [place] [address] Phone [phone] Care Team Providers Care Hull Sorter Name Role Phone Aleksandr Suggs MD 3 [phone] Manpreet Diaz MD 259 [phone] Reason for Visit None recorded. Assessment and Plan The following list includes any diagnoses that were discussed at your visit. 1. Acute pyelonephritis CT, abdomen + pelvis, w/ contrast levofloxacin 500 mg tablet 2. Fever 3. Fatigue 4. Metabolic encephalopathy Discussion Note: None recorded. Patient educational handouts: No information available. Plan of Care Reminders Provider Appointments None recorded. Lab None recorded. Referral None recorded. Procedures None recorded. Surgeries None recorded. Imaging CT, Abdomen + Pelvis, W/ Contrast 08/27/2017 s Or Ocn (Bi-Directional Rad) Current Medications Your medical record indicates you are on the following medicine. If this list is not consistentwith the medications you are currently taking, or if you are taki ng additional bobo-dri-bbbzvsu medicines, pleaseinform your provider. Name Prescribed Date Start Date Accu-Chek Luci Plus Meter Accu-Chek Luci Plus test strips aspirin 325 mg tablet Take 1 tablet every day by oral route. atorvastatin 10 mg tablet TAKE 1 TABLET BY MOUTH EVERY DAY clopidogrel 75 mg tablet Take 1 tablet every day by oral route. 08/17/2017 diclofenac 3 % topical gel APPLY TO LESION AREAS BY TOPICAL ROUTE 2 TIMES PER DAY 03/31/2016 glipizide 5 mg tablet TAKE 1 TABLET BY MOUTH TWICE DAILY BEFORE MEALS levofloxacin 500 mg tablet Take 1 tablet every 24 hours by oral route. 08/27/2017 levothyroxine 150 mcg tablet Take 1 tablet every day by oral route. losartan 100 mg tablet TAKE 1 TABLET BY MOUTH EVERY DAY metformin 500 mg tablet Take 1 tablet twice a day by oral route. metoprolol tartrate 50 mg tablet TAKE 1 TABLET BY MOUTH TWICE DAILY WITH MEALS OneTouch Delica Lancets 33 gauge Use to test blood sugar twice daily before AM and PM meals. CerelinkTouch Ultra2 kit oxycodone-acetaminophen 5 mg-325 mg tabl et Take 1 tablet twice a day by oral route as needed. simple diag mis lancing TRUEplus Lancets 28 gauge ultra thin mis 31g Medications Administered None recorded. Vitals Height Weight BMI Blood Pressure Pulse O2 Saturation [facility] Body Surface Area Blood Pressure Cuff Size Pain Scale 5 ft 2.99 in 149 lbs 3.2 oz 26.4 kg/m2 169/70 mm[Hg] 76 bpm 98% 97.7 F 1.73 m adult 8 Lab Results None recorded. Allergies Please review your allergy list for accuracy. Contact your provider if this list needs to be updated. Code Code System Name Reaction Severity Onset 6387 RxNorm Lidocaine NKDA Problems Name Status Onset Date Source Hypothyroidism Active 04/01/2016 Type 2 Diabetes Mellitus without Complication Active Procedures Date Name Performed by 08/27/2017 CT, Abdomen + Pelvis, W/ Contrast Ahs Or m Ocn (Bi-Directional Rad) [address] [place] [address] (Work Place) Notes: Procedure: Pleural peel ( Historical import from [place]) Vaccine List Here is a copy of your most up-to-date vaccination list. Vaccine Type influenza, injectable, quadrivalent 07/12/20170.5 mL influenza, seasonal, injectable 08/06/2014 08/11/2014 07/15/2015 08/10/20160.5 mL pneumococcal conjugate PCV 13 07/11/2017 07/22/2017 pneumococcal polysaccharide PPV23 01/22/2010 08/11/2014 10/11/2014 Tdap 10/11/2007 Notes: Some vaccines listed in Documents : #[id number], #[id number], #[id number], #[id number] could not be added to this patient's chart. Please review these documents and add these vaccines to the patient's chart manually as needed. Smoking Status Smoking Status Past Encounters 08/27/2017 Acute Pyelonephritis; Fever; Fatigue; Metabolic Encephalopathy Aleksandr Suggs MD: [address] [facility], [address], [place] [address], Ph. [phone] 08/17/2017 Acute Hypoxemic Respiratory Failure; Acute Urinary Tract Infection; Diastolic Dysfunction; Cerebrovascular Accident; Left Carotid Artery Stenosis; Solitary Nodule of Lung; Type II Diabetes Mellitus Uncontrolled; Hypothyroidism; Low Back Pain; Renewal of Prescription Aleksandr Suggs MD: [address] [place] [address], [address], [place] [address], Ph. [phone]
--- OUTSIDE RECORDS SUMMARY | 2020-05-01 13:02 | XMS REPORT | Continuity of Care Document ---
Author Author Kasey Suggs Organization [facility] Address 305 [facility] [address] [place], [place] [address] Phone Care Team Providers Care Tail Worker Name Role Phone Es PERALTA, Aleksandr HERNANDEZ Unavailable Es PERALTA, Aleksandr HERNANDEZ Unavailable Es PERALTA, Aleksandr RP Unavailable Payers Payer name Insurance type Covered democrat ID Authorization(s ) [facility] Medicare Complete [place] [id number] AARP Medicare Complete CI [id number] Problems Condition Effective Dates (start - stop) [...] Dates (start - stop) Sta tus Comments levothyroxine 125 mcg tablet TAKE 1 TABLET BY ORAL ROUTE EVERY D AY 125 MCG - Active levothyroxine 100 mcg tablet TAKE 1 TABLET BY MOUTH EVERY DAY 10 0 MCG - Active metformin 500 mg tablet TAKE 1 TABLET BY ORAL ROUTE ONCE DAILY - Active atorvastatin 10 mg tablet TAKE 1 TABLET [...] ROUTE EVERY DAY 100 MG - Active cephalexin 500 mg capsule take [...] yrs or older) comple bakari - Note: [facility] [id number] - Completed reason: New Fluvirin vaccine (split) [...] Reason(s) For Visit Diagnose s Date Provider [facility], [facility] [employer] [address], [address], tel:[phone] Aleksandr Suggs MD [facility] Es Brandon. [address] [place] [address], [address], [place]. tel:[phone] [place] [address] [employer] [address], [address], tel:[phone] Aleksandr Suggs MD [facility] Es Brandon. [address] [place] [address], [id number], [place]. tel:[phone] [place] [address] [employer] [address], [address], tel:[phone] Aleksandr Suggs MD [facility] Es Brandon. [address] [place] [address], [address], [place]. tel:[phone] [address] [employer] [address] [place] [address], [id number], tel:[phone] Aleksandr Suggs MD [address] Es Brandon. [address] [place] [address], [id number], [place]. tel:[phone] [facility], [address] [place] [address] [address], [place], [place], [address], [place] tel:[phone] Aleksandr Suggs MD 208 Parony lashanda of thumb, rightRight medial knee painHypothyroidism, unspecifiedOther hyperlipidemiaType 2 diabetes mellitus without complications Es Brandon . [address] [place] [address], [facility] 208, [place], [place], [address], [place]. tel:[phone] [facility], [address] [place] [address] [address], [place], [place], [address], [place] tel:[phone] Aleksandr Suggs MD 208 Es Brandon. [address] [place] [address], [facility] [address], [address], [place]. tel:[phone] [facility], [address] [place] [address] [employer] [address], [place], [address], [place] tel:[phone] Aleksandr Suggs MD 208 Type 2 diabetes mellitus without complicationsOther hyperlipidemiaHypothyroidism, unspecifiedEssential (primary) hypertension Es Brandon. [address] [place] [address], [facility] [address], [address], [place]. tel:[phone] [facility], [address] [place] [address], [place], [address], [place] tel:[phone] Aleksandr Suggs MD 208 Type 2 diabetes mellitus without complicationsOther hyperlipidemiaEssential (primary) hypertensionHypothyroidism, unspecifiedPyothorax without fistulaEncounter for immunization Es Brandon. [address] [place] [address], [facility] [address], [address], [place]. tel:[phone] [facility], [address] [place] [address], [place], [place], [address], [place] tel:[phone] Aleksandr Suggs MD 208 Empyem aHypothyroidismDM type 2 (diabetes mellitus, type 2)DyslipidemiaHTN (hypertension) Es Brandon. [address] [place] [address], [facility] [address], [place], [place], [address], [place]. tel:[phone] Advance Directives Directive Yes / No Effective Date File Name Unknown
--- OUTSIDE RECORDS SUMMARY | 2020-05-01 13:02 | XMS REPORT | Continuity of Care Document ---
Author Author Kasey Suggs Organization [facility] Address 305 [facility] [address] [place] [address] Phone Unavailable Care Team Providers Care Map Plotter Name Role Phone Es PERALTA, Aleksandr HERNANDEZ Unavailable Es PERALTA, Aleksandr HERNANDEZ Unavailable Es PERALTA, Aleksandr RP Unavailable Payers Payer name Insurance type Covered libertarian ID Authorization(s ) [facility] Medicare Complete CI [id number] [facility] Medicare Complete CI [id number] Problems Condition Effective Dates (start - stop) [...] (start - stop) Sta tus Comments metformin 500 mg tablet TAKE 1 TABLET [...] in the morning 25 MG - Active One Touch Ultra Blue Kit MISCELL KIT use 1 meter to test blood gluose - Active levothyroxine 125 mcg tablet take [...] test three times daily 016 - Active metoprolol tartrate 50 mg tablet TAKE 1 TABLET BY ORAL ROUTE 2 TIMES EVERY DAY WITH MEALS 50 MG - Active My Favorite Multiple oral liquid - Active atorvastatin 10 mg tablet take 1 tablet by oral route every day 10 MG - No Longer Active glipizide 5 mg tablet TAKE 1 TABLET BY ORAL ROUTE 2 TIMES EVERY DAY BEFORE MEALS 5 MG - No Longer Active metformin 500 mg tablet take 1 tablet by oral route once daily - No Longer Active Immunizations Vaccine Date Status Comments Fluvirin vaccine (split) (3 yrs or older) comple bakari - Note: [facility] 01184-959-85 - Completed reason: New Fluvirin vaccine (split) (3 yrs or older) ordere d - Completed reason: New Results Test Name Date and Time Measure Units Reference Range Abnormal F lag Comments Unknown Vital Signs Date / Time: Height Weight BMI Pulse Rate Blood Pressure Temperatu re Respiratory Rate Body Surface Area Head Circumference BMI percentile /13:48:00 62.99 in 152.20 lbs 26.97 kg/meter(2) 67 /min 126/70 mm[Hg] 97.6 F 16 /min 1.75 meter(2) Procedures Procedure Date OFFICE/OUTPATIENT VISIT, EST Encounters Encounter Description Practice Location Reason(s) For Visit Diagnose s Date Provider [facility], [address] [place] [address] [address], [place], [address], [place] tel:[phone] Aleksandr Suggs MD [address] Es Brandon. [address] [place] [address], [facility] 208, [place], [address], [place]. tel:[phone] [facility], [address] [facility] [address], [place], [place], [address], [place] tel:[phone] Aleksandr Suggs MD 208 Es Brandon. 305 [facility], [facility] 208, [place], [address], [place]. tel:[phone] OFFICE/OUTPATIENT VISIT, [facility], [facility] [address] [employer] [address], [place], [place], [address], [place] tel:[phone] Aleksandr Suggs MD 208 diab etes (chief complaint)hypertension (chief complaint)Hypothyroidism (chief complaint)Knee pain (chief complaint) Paronychia of thumb, rightRight medial knee painHypothyroidism, unspecifiedOther hyperlipidemiaType 2 diabetes mellitus without complications Es Brandon. 305 [facility], [facility] 208, [place], [address], [place]. tel:[phone] [address] [employer] [address], [place], [place], [address], [place] tel:[phone] Aleksandr Suggs MD 208 Es Brandon. [address] [place] [address], [facility] [address], [place], [address], [place]. tel:[phone] [address] [employer] [address], [place], [place], [address], [place] tel:[phone] Aleksandr Suggs MD 208 Type 2 diabetes mellitus without complicationsOther hyperlipidemiaHypothyroidism, unspecifiedEssential (primary) hypertension Es Brandon. 305 [facility], [facility] 208, [place], [place], [address], [place]. tel:[phone] [place] [address] [employer] [address], [place], [address], [place] tel:[phone] Aleksandr Suggs MD 208 Type 2 diabetes mellitus without complicationsOther hyperlipidemiaEssential (primary) hypertensionHypothyroidism, unspecifiedPyothorax without fistulaEncounter for immunization Es Brandon. 305 [facility], [facility] 208, [place], [address], [place]. tel:[phone] [place] [address] [employer] [address], [place], [place], [address], [place] tel:[phone] Aleksandr Suggs MD 208 Empyem aHypothyroidismDM type 2 (diabetes mellitus, type 2)DyslipidemiaHTN (hypertension) Es Brandon. [address] [place] [address], [facility] [address], [place], [address], [place]. tel:[phone] Advance Directives Directive Yes / No Effective [...]
--- OUTSIDE RECORDS SUMMARY | 2020-05-01 13:02 | XMS REPORT | Continuity of Care Document ---
Author Author Kasey Suggs Organization [facility] Address 305 [facility] 208 [place], [place] [id number] Phone Care Team Providers Care Refrigeration Engineering Teacher Name Role Phone Es PERALTA, Aleksandr HERNANDEZ Unavailable Es PERALTA, Aleksandr HERNANDEZ Unavailable Es PERALTA, Aleksandr RP Unavailable Payers Payer name Insurance type Covered democrat ID Authorization(s ) [facility] Medicare Complete CI [id number] AARP Medicare Complete CI [id number] Problems Condition Effective Dates (start - stop) [...] or older) comple bakari - Note: [facility] [id number] - Completed reason: New Fluvirin vaccine (split) [...] Visit Diagnose s Date Provider [facility], [facility] [email or web address] [address], [id number], tel:[phone] Aleksandr Suggs MD [address]. [address] [place] [address], [id number], [place]. tel:[phone] [place] [address] [email or web address] [address], [id number], tel:[phone] Aleksandr Suggs MD [facility] Es Brandon. [address] [place] [address], [id number], [place]. tel:[phone] [place] [address] [email or web address] [address], [id number], tel:[phone] Aleksandr Suggs MD [facility] Es Brandon. [address] [place] [address], [id number], [place]. tel:[phone] [place] [address] [email or web address] [address], [id number], tel:[phone] Aleksandr Suggs MD [address]. [address] [place] [address], [id number], [place]. tel:[phone] [facility], [address] [place] [address] [address], [place], [address], [place] tel:[phone] Aleksandr Suggs MD Es [place]. [address] [place] [address], [facility] [address], [place], [id number], [place]. tel:[phone] [facility], [address] [place] [address] [address], [place], [address], [place] tel:[phone] Aleskandr Suggs MD 208 Parony lashanda of thumb, rightRight medial knee painHypothyroidism, unspecifiedOther hyperlipidemiaType 2 diabetes mellitus without complications Es [place] . [address] [place] [address], [facility] [address], [place], [address], [place]. tel:[phone] [facility], [address] [place] [address] [facility] [address], [place], [address], [place] tel:[phone] Aleksandr Suggs MD [address]. [address] [place], [place] [address]y, [facility] [address], [place], [address], [place]. tel:[phone] [facility], [address] [place] [address] [facility] [address], [place], [address], [place] tel:[phone] Aleksandr Suggs MD 208 Type 2 diabetes mellitus without complicationsOther hyperlipidemiaHypothyroidism, unspecifiedEssential (primary) hypertension Es Brandon. [address] [place] [address] [address], [address], [place], [address], [place]. tel:[phone] [address], [place], [address], [place] tel:[phone] Aleksandr Suggs MD 208 Type 2 diabetes mellitus without complicationsOther hyperlipidemiaEssential (primary) hypertensionHypothyroidism, unspecifiedPyothorax without fistulaEncounter for immunization Es Brandon. [address] [place], [place] [address]y, [facility] 208, [place], [place], [address], [place]. tel:[phone] [facility], [facility] [address], [place], [address], tel:[phone] Aleksadnr Suggs MD 208 Empyem aHypothyroidismDM type 2 (diabetes mellitus, type 2)DyslipidemiaHTN (hypertension) Es Brandon. [address] [place] [address], [facility] 208, [place], [place], [address], [place]. tel:[phone] Advance Directives Directive Yes / No Effective Date File Name Unknown
--- OUTSIDE RECORDS SUMMARY | 2020-05-01 13:02 | XMS REPORT | Continuity of Care Document ---
Author Author Kasey Suggs Organization [facility] Address 305 [facility] 208 [place], [place] [id number] Phone Unavailable Care Team Providers Care Cath Lab Tech Name Role Phone Es PERALTA, Aleksandr HERNANDEZ Unavailable Aleksandr Suggs MD, PP Unavailable Es PERATLA, Aleksandr RP Unavailable Payers Payer name Insurance type Covered alliance party ID Authorization(s ) [facility] Medicare Complete CI [id number] AARP Medicare Complete CI [id number] Problems Condition Effective Dates (start - stop) [...] My Favorite Multiple oral liquid - Active levothyroxine 100 mcg tablet TAKE 1 TABLET BY MOUTH EVERY DAY 10 0 MCG - No Longer Active Immunizations Vaccine Date Status Comments Fluvirin vaccine (split) (3 yrs or older) comple bakari - Note: [facility] 17252-103-57 - Completed reason: New Fluvirin vaccine (split) [...] Reason(s) For Visit Diagnose s Date Provider [facility] [employer] [address] [place] [address], [id number], tel:[phone] Aleksandr Suggs MD Es [address]. [address] [place] [address], [id number], [place]. tel:[phone] [facility] [employer] [address] [place] [address], [id number], tel:[phone] Aleksandr Suggs MD Parony lashanda of thumb, rightRight medial knee painHypothyroidism, unspecifiedOther hyperlipidemiaType 2 diabetes mellitus without complications Es [place] . [address] [place] [address], [id number], [place]. tel:[phone] [facility] [employer] [address], [place], [address], [place] tel:[phone] Aleksandr Suggs MD Es [address]. [address] [place] [address], [id number], [place]. tel:[phone] [facility] [employer] [address] [place] [address], [id number], [place] tel:[phone] Aleksandr Suggs MD Es [place]. 305 [facility], [facility] 208, [place], [place], [address], [place]. tel:[phone] [facility], [address] [place] [address] [address], [place], [address], tel:[phone] Aleksandr Suggs MD Type 2 diabetes mellitus without complicationsOther hyperlipidemiaHypothyroidism, unspecifiedEssential (primary) hypertension Es Brandon. 305 [facility], [facility] 208[place], [place], [address], [place]. tel:[phone] [facility], [address] [place] [address] [address], [place], [address], [place] tel:[phone] Aleksandr Suggs MD 208 Type 2 diabetes mellitus without complicationsOther hyperlipidemiaEssential (primary) hypertensionHypothyroidism, unspecifiedPyothorax without fistulaEncounter for immunization Es Brandon. [address] [place] [address], [facility] 208[place], [place], [address], [place]. tel:[phone] [facility], [address] [place] [address] [address], [place], [address], [place] tel:[phone] Aleksandr Suggs MD 208 Empyem aHypothyroidismDM type 2 (diabetes mellitus, type 2)DyslipidemiaHTN (hypertension) Es [place]. [address] [place] [address], [facility] [address], [place], [address], [place]. tel:[phone] Advance Directives Directive Yes / No Effective Date File Name Unknown
--- OUTSIDE RECORDS SUMMARY | 2020-05-01 13:02 | XMS REPORT | Continuity of Care Document ---
Author Author Kasey Suggs Organization [facility] Address 305 [facility] 208 [place], [place] [id number] Phone Care Team Providers Care Direct Chill Caster Name Role Phone Es PERALTA, Aleksandr HERNANDEZ Unavailable Es PERALTA, Aleksandr HERNANDEZ Unavailable Es PERALTA, Aleksandr RP Unavailable Payers Payer name Insurance type Covered republican ID Authorization(s ) [facility] Medicare Complete CI [id number] AARP Medicare Complete CI [id number] Problems Condition Effective Dates (start - stop) [...] yrs or older) comple bakari - Note: [facility] 86205-842-77 - Completed reason: New Fluvirin vaccine (split) [...] Reason(s) For Visit Diagnose s Date Provider [facility], [facility] [employer] [address], [id number], tel:[phone] Aleksandr Suggs MD [facility] Es Brandon. [address] [place] [address], [id number], [place]. tel:[phone] [place] [address] [employer] [address], [id number], tel:[phone] Aleksandr Suggs MD [facility] Es [place]. [address] [place] [address], [id number], [place]. tel:[phone] [place] [address] [employer] [address], [id number], tel:[phone] Aleksandr Suggs MD [facility] Es Brandon. [address] [place] [address], [id number], [place]. tel:[phone] [address] [employer] [address] [place] [address], [id number], tel:[phone] Aleksandr Suggs MD [address]. [address] [place] [address], [id number], [place]. tel:[phone] [facility], [address] [place] [address] [address], [place], [place], [address], [place] tel:[phone] Aleksandr Suggs MD 208 Parony lashadna of thumb, rightRight medial knee painHypothyroidism, unspecifiedOther hyperlipidemiaType 2 diabetes mellitus without complications Es Brandon . [address] [place] [address], [facility] 208, [place], [place], [address], [place]. tel:[phone] [facility], [address] [place] [address] [address], [place], [place], [address], [place] tel:[phone] Aleksandr Suggs MD [address]. [address] [place] [address], [facility] [address], [place], [address], [place]. tel:[phone] [facility], [address] [place] [address] [address] [address], [place], [address], [place] tel:[phone] Aleksandr Suggs MD 208 Type 2 diabetes mellitus without complicationsOther hyperlipidemiaHypothyroidism, unspecifiedEssential (primary) hypertension Es Brandon. [address] [place] [address], [facility] [address], [place], [address], [place]. tel:[phone] [facility], [address] [place] [address], [place], [address], [place] tel:[phone] Aleksandr Suggs MD 208 Type 2 diabetes mellitus without complicationsOther hyperlipidemiaEssential (primary) hypertensionHypothyroidism, unspecifiedPyothorax without fistulaEncounter for immunization Es Brandon. [address] [place] [address], [facility] [address], [place], [address], [place]. tel:[phone] [facility], [address] [place] [address], [place], [place], [address], [place] tel:[phone] Aleksandr Suggs MD 208 Empyem aHypothyroidismDM type 2 (diabetes mellitus, type 2)DyslipidemiaHTN (hypertension) Es Brandon. [address] [place] [address], [facility] 208, [place], [place], [address], [place]. tel:[phone] Advance Directives Directive Yes / No Effective Date File Name Unknown
--- OUTSIDE RECORDS SUMMARY | 2020-05-01 13:02 | XMS REPORT | Continuity of Care Document ---
Author Author Kasey Suggs Organization [facility] Address 305 [facility] 208 [place], [place] [id number] Phone Unavailable Care Team Providers Care Molding Machine Operator Name Role Phone Es PERALTA, Aleksandr HERNANDEZ Unavailable Aleksandr Suggs MD, PP Unavailable Es PERALTA, Aleksandr RP Unavailable Payers Payer name Insurance type Covered libertarian ID Authorization(s ) [facility] Medicare Complete CI [id number] AARP Medicare Complete CI [id number] Problems Condition Effective Dates (start - stop) [...] My Favorite Multiple oral liquid - Active metoprolol tartrate 50 mg tablet TAKE 1 TABLET BY ORAL ROUTE 2 TIMES EVERY DAY WITH MEALS 50 MG - No Longer Active Immunizations Vaccine Date Status Comments Fluvirin vaccine (split) (3 yrs or older) comple bakari - Note: [facility] 60609-073-72 - Completed reason: New Fluvirin vaccine (split) [...] For Visit Diagnose s Date Provider Healthcare [facility], [email or web address] [address] [place] [address], [id number], tel:[phone] Aleksandr Suggs MD 208 Parony lashanda of thumb, rightRight medial knee painHypothyroidism, unspecifiedOther hyperlipidemiaType 2 diabetes mellitus without complications Es Brandon . [address] [place] [address], [facility] 208[place], [place], [address], [place]. tel:[phone] [facility] [email or web address] [address], [place], [address], tel:[phone] Aleksandr Suggs MD [address]. [address] [place] [address], [facility] 208[place], [place], [address], [place]. tel:[phone] [facility] [address], [place], [address], tel:[phone] Aleksandr Suggs MD 208 Type 2 diabetes mellitus without complicationsOther hyperlipidemiaHypothyroidism, unspecifiedEssential (primary) hypertension Es Brandon. 305 [facility], [facility] 208[place], [place], [address], [place]. tel:[phone] [facility] [address], [place], [address], [place] tel:[phone] Aleksandr Suggs MD Es Brandon. [address] [place] [address], [place], [address], [place]. tel:[phone] [facility], [address] [place] [address] [address], [place], [place], [address], tel:[phone] Aleksandr Suggs MD 208 Type 2 diabetes mellitus without complicationsOther hyperlipidemiaEssential (primary) hypertensionHypothyroidism, unspecifiedPyothorax without fistulaEncounter for immunization Es Brandon. [address] [place] [address], [place], [address], [place]. tel:[phone] [facility], [address] [place] [address] [address], [place], [address], tel:[phone] Aleksandr Suggs MD Empyem aHypothyroidismDM type 2 (diabetes mellitus, type 2)DyslipidemiaHTN (hypertension) Es Brandon. 305 [facility] 208, [place], [place], [address], [place]. tel:[phone] Advance Directives Directive Yes / No Effective Date File Name Unknown
--- OUTSIDE RECORDS SUMMARY | 2020-05-01 13:02 | XMS REPORT | Continuity of Care Document ---
Author Author Kasey Lewis Organization [facility] Address [address] [id number] Phone Unavailable Care Team Providers Care Digital Sales Executive Name Role Phone Es PERALTA, Aleksandr PP Unavailable Debbie PERALTA, Carlos Enrique HERNANDEZ Unavailable Es PERALTA, Aleksandr HERNANDEZ Unavailable Bob PERALTA, Parminder CONTRERAS Unavailable Es PERALTA, Aleksandr CONTRERAS Unavailable Payers Payer name Insurance type Covered constitution party ID Authorization(s ) [facility] Medicare Complete CI [id number] [facility] Medicare Complete CI [id number] Problems Condition Effective Dates (start - stop) [...] Use Details Cigarette: No Details Available Cigarette: No Details Available Allergies, Adverse Reactions, Alerts Substance Reaction Severity [...] or older) comple bakari - Note: [facility] 30924-952-47 - Completed reason: New Fluvirin vaccine (split) [...] For Visit Diagnose s Date Provider [facility], [address] [place] [address], [id number], tel:[phone] Aleksandr Suggs MD [address]. [address] [place] [address], [id number], [place]. tel:[phone] [address] [employer], [address], [place] tel:[phone] Aleksandr Suggs MD [address]. [address] [place] [address], [place], [address], [place]. tel:[phone] [facility], [address] [place] [address] [facility] [address] [place] [address], [id number], tel:[phone] Aleksandr Suggs MD [address]. [address] [place] [address], [place], [address], [place]. tel:[phone] [facility], [address] [place] [address], [place], [place], [address], [place] tel:[phone] Aleksandr Suggs MD [address]. [address] [facility] [address], [address], [place], [place], [address], [place]. tel:[phone] [facility], [address] [place] [address], [place], [place], [address], [place] tel:[phone] Aleksandr Suggs MD [address]. [address] [facility] [address], [address], [place], [place], [address], [place]. tel:[phone] [facility], [address] [place] [address], [place], [address], [place] tel:[phone] Aleksandr Suggs MD 208 Parony lashanda of thumb, rightRight medial knee painHypothyroidism, unspecifiedOther hyperlipidemiaType 2 diabetes mellitus without complications Es Brandon . [address] [facility] [address], [address], [place], [place], [address], [place]. tel:[phone] [address], [place], [address], [place] tel:[phone] Aleksandr Suggs MD [address]. [address] [facility] [address], [address], [place], [address], [place]. tel:[phone] [facility], [address] [place] [address], [place], [address], [place] tel:[phone] Aleksandr Suggs MD 208 Type 2 diabetes mellitus without complicationsOther hyperlipidemiaHypothyroidism, unspecifiedEssential (primary) hypertension Es Brandon. [address] [facility] [address], [place]it [address], [place], [address], [place]. tel:[phone] [facility], [address] [place] [address], [place], [place], [address], [place] tel:[phone] Aleksandr Suggs MD 208 Type 2 diabetes mellitus without complicationsOther hyperlipidemiaEssential (primary) hypertensionHypothyroidism, unspecifiedPyothorax without fistulaEncounter for immunization Es Brandon. [address] [place] [address], [facility] 208, [place], [place], [address], [place]. tel:[phone] [facility], [address] [facility] [address], [place], [place], [address], tel:[phone] Aleksandr Suggs MD 208 Empyem aHypothyroidismDM type 2 (diabetes mellitus, type 2)DyslipidemiaHTN (hypertension) Es Brandon. [address] [place] [address], [facility] 208, [place], [place], [address], [place]. tel:[phone] Advance Directives Directive Yes / No Effective Date File Name Resuscitation Not Answered N/A N/A Life Support Not Answered N/A N/A Intubation Not Answered N/A N/A Antibiotics Not Answered N/A N/A IV Fluid Support Not Answered N/A N/A WARNING:The information contained in this section is historical and is provided for information only and does not constitute a legal document or any assurance t hat the information is still accurate. Please verify the information with the ho lder of the legal document before using it for clinical purposes.
--- OUTSIDE RECORDS SUMMARY | 2020-05-01 13:02 | XMS REPORT | Continuity of Care Document ---
Author Author Kasey Suggs Organization [facility] Address 305 [facility] 208 [place], [place] [id number] Phone Care Team Providers Care Lens Edge Grinder Machine Name Role Phone sE PERALTA, Aleksandr HERNANDEZ Unavailable Es PERALTA, Aleksandr HERNANDEZ Unavailable Es PERALTA, Aleksandr RP Unavailable Payers Payer name Insurance type Covered constitution party ID Authorization(s ) [facility] Medicare Complete CI [id number] AARP Medicare Complete CI [id number] Problems Condition Effective Dates (start - stop) [...] (start - stop) Sta tus Comments levothyroxine 100 mcg tablet TAKE 1 TABLET [...] yrs or older) comple bakari - Note: [facility] [id number] - Completed reason: New Fluvirin vaccine (split) [...] Visit Diagnose s Date Provider [facility], [employer] [address], [id number], tel:[phone] Aleksandr Suggs MD [address]. [address] [place] [address], [id number], [place]. tel:[phone] [facility] [employer] [address] [place] [address], [id number], tel:[phone] Aleksandr Suggs MD [facility] Es Brandon. [address] [place] [address], [address], [id number], . tel:[phone] [facility] [employer] [address], [place], [address], [place] tel:[phone] Aleksandr Suggs MD [address]. [address] [place] [address], [place], [address], [place]. tel:[phone] [facility] [employer] [address], [place], [address], tel:[phone] Aleksandr Suggs MD 208 Parony lashanda of thumb, rightRight medial knee painHypothyroidism, unspecifiedOther hyperlipidemiaType 2 diabetes mellitus without complications Es Brandon . 305 [facility] 208[place], [place], [address], [place]. tel:[phone] [facility], [address] [place] [address] [address], [place], [address], tel:[phone] Aleksandr Suggs MD [address]. [address] [place] [address], [place], [address], [place]. tel:[phone] [facility], [address] [place] [address] [employer] [address], [place], [address], [place] tel:[phone] Aleksandr Suggs MD 208 Type 2 diabetes mellitus without complicationsOther hyperlipidemiaHypothyroidism, unspecifiedEssential (primary) hypertension Es Brandon. [address] [place] [address], [place], [address], [place]. tel:[phone] [facility], [address] [place] [address] [address], [place], [address], [place] tel:[phone] Aleksandr Suggs MD 208 Type 2 diabetes mellitus without complicationsOther hyperlipidemiaEssential (primary) hypertensionHypothyroidism, unspecifiedPyothorax without fistulaEncounter for immunization Es Brandon. [address] [place] [address], [id number], [place]. tel:[phone] [address], [place], [address], [place] tel:[phone] Aleksandr Suggs MD 208 Empyem aHypothyroidismDM type 2 (diabetes mellitus, type 2)DyslipidemiaHTN (hypertension) Es Brandon. [address] [place] [address], [facility] 208[place], [place], [address], [place]. tel:[phone] Advance Directives Directive Yes / No Effective Date File Name Unknown
--- OUTSIDE RECORDS SUMMARY | 2020-05-01 13:02 | XMS REPORT | Continuity of Care Document ---
Author Author Kasey Suggs Organization [facility] Address [address] [facility] [address] [place], [place] [id number] Phone Care Team Providers Care Meat Department Manager Name Role Phone Es PERALTA, Aleksandr HERNANDEZ Unavailable Es PERALTA, Aleksandr HERNANDEZ Unavailable Es PERALTA, Aleksandr RP Unavailable Payers Payer name Insurance type Covered green party ID Authorization(s ) [facility] Medicare Complete CI [id number] AARP Medicare Complete CI [id number] Problems Condition Effective Dates (start - stop) [...] yrs or older) comple bakari - Note: [facility] [id number] - Completed reason: New Fluvirin vaccine (split) [...] Diagnose s Date Provider [facility] [email or web address] [address], [id number], tel:[phone] Aleksandr Suggs MD [facility] Es Brandon. [address] [place] [address], [id number], [place]. tel:[phone] [place] [address] [email or web address] [address], [id number], tel:[phone] Aleksandr Suggs MD [facility] Es Brandon. [address] [place] [address], [id number], [place]. tel:[phone] [place] [address] [email or web address] [address], [id number], tel:[phone] Aleksandr Suggs MD [facility] Es Brandon. [address] [place] [address], [id number], [place]. tel:[phone] [address] [email or web address] [address] [place] [address], [id number], tel:[phone] Aleksandr Suggs MD [address] Es Brandon. [address] [place] [address], [id number], [place]. tel:[phone] [facility], [address] [place] [address] [address], [place], [place], [id number], [place] tel:[phone] Aleksandr Suggs MD 208 Parony lashanda of thumb, rightRight medial knee painHypothyroidism, unspecifiedOther hyperlipidemiaType 2 diabetes mellitus without complications Es Brandon . [address] [place] [address], [facility] [address], [place], [place], [id number], [place]. tel:[phone] [facility], [address] [place] [address] [address], [place], [place], [id number], [place] tel:[phone] Aleksandr Suggs MD 208 Es Brandon. [address] [place] [address], [facility] [address], [place], [id number], [place]. tel:[phone] [facility], [address] [place] [address] [address], [place], [id number], [place] tel:[phone] Aleksandr Suggs MD 208 Type 2 diabetes mellitus without complicationsOther hyperlipidemiaHypothyroidism, unspecifiedEssential (primary) hypertension Es Brandon. [address] [place] [address], [facility] [address], [id number], [place]. tel:[phone] [facility], [address] [place] [address] [address], [place], [id number], [place] tel:[phone] Aleksandr Suggs MD 208 Type 2 diabetes mellitus without complicationsOther hyperlipidemiaEssential (primary) hypertensionHypothyroidism, unspecifiedPyothorax without fistulaEncounter for immunization Es Brandon. [address] [place] [address], [facility] [address], [place], [id number], [place]. tel:[phone] [facility], [address] [place] [address] [address], [place], [place], [id number], [place] tel:[phone] Aleksandr Suggs MD 208 Empyem aHypothyroidismDM type 2 (diabetes mellitus, type 2)DyslipidemiaHTN (hypertension) Es Brandon. [address] [place] [address], [facility] [address], [place], [place], [id number], [place]. tel:[phone] Advance Directives Directive Yes / No Effective Date File Name Unknown
--- OUTSIDE RECORDS SUMMARY | 2020-05-01 13:03 | XMS REPORT ---
Author Organization Unknown Address [address] [place] [address] Phone [phone] Care Team Providers Care Rock Splitter Name Role Phone Aleksandr Suggs MD 3 [phone] Cam Lilly DO 82 [phone] Asha Clemente DPM 120 [phone] Jaquan Christianson MD 130 [phone] Drake Ramos MD 130 [phone] Manpreet Diaz MD 259 [phone] Reason for Visit None recorded. Assessment and Plan The following list includes any diagnoses that were discussed at your visit. 1. Claudication tramadol 50 mg tablet 2. Moderate recurrent major depression escitalopram 5 mg tablet 3. Peripheral arterial occlusive disease 4. Hypothyroidism TSH, serum or plasma T4, free, serum levothyroxine 125 mcg tablet 5. Type II diabetes mellitus uncontrolle d HbA1c (hemoglobin A1c), blood 6. Hyperlipidemia CMP, serum or plasma lipid panel, serum atorvastatin 10 mg tablet 7. Essential hypertension metoprolol tartrate 50 mg tablet 8. Renewal of prescription clopidogrel 75 mg tablet Discussion Note: None recorded. Patient educational handouts: No information available. Plan of Care Reminders Provider Appointments Short 20 06/08/2019 1:20PM Aleksandr mercado MD Lab TSH, Serum or Plasma 05/11/2019 [facility] T4, Free, Serum 05/11/2019 [facility] HbA1C (Hemoglobin a1C), Blood 05/11/2019 [facility] CMP, Serum or Plasma 05/11/2019 [facility] Lipid Panel, Serum 05/11/2019 [facility] Referral None recorded. Procedures None recorded. Surgeries None recorded. Imaging None recorded. Current Medications Your medical record indicates you are on the following medicine. If this list is not consistentwith the medications you are currently taking, or if you are taki ng additional nmnh-tmw-thssjdk medicines, pleaseinform your provider. Name Prescribed Date Start Date Aspir-81 81 mg tablet,delayed release Take 1 tablet every day by oral route. 07/19/2018 atorvastatin 10 mg tablet TAKE 1 TABLET BY MOUTH EVERY DAY 03/07/2019 cilostazol 100 mg tablet Take 1 tablet twice a day by oral route for 90 days. 02/23/2019 clopidogrel 75 mg tablet TAKE 1 TABLET BY MOUTH EVERY DAY 03/07/2019 escitalopram 5 mg tablet TAKE 1 TABLET BY MOUTH EVERY DAY 03/07/2019 glipizide 5 mg tablet TAKE 1 TABLET BY MOUTH TWICE DAILY BEFORE MEALS levothyroxine 125 mcg tablet TAKE 1 TABLET BY MOUTH EVERY DAY 03/07/2019 losartan 100 mg tablet TAKE 1 TABLET BY MOUTH EVERY DAY metformin 500 mg tablet TAKE 1 TABLET BY MOUTH TWICE DAILY 02/08/2019 metoprolol tartrate 50 mg tablet Take 1 tablet twice a day by oral route for 90 days. 03/07/2019 nitroglycerin 0.4 mg sublingual tablet Dissolve 1 tablet every 5 minutes for 3 doses as needed for chest pain OneTouch Delica Lancets 33 gauge USE TO CHECK BLOOD GLUCOSE TWICE DAILY BEFORE MEALS OneTouch Ultra2 Meter kit pantoprazole 40 mg tablet,delayed releas e TAKE 1 TABLET BY MOUTH EVERY DAY 02/23/2019 simple diag mis lancing tramadol 50 mg tablet take 1 tab PO twice daily prn pain 03/07/2019 TRUEplus Lancets 28 gauge ultra thin mis 31g Medications Administered None recorded. Vitals Height Weight BMI Blood Pressure Pulse O2 Saturation [place] rature Respiration Rate Body Surface Area Pain Scale Type Blood Pressure Cuff Size Pain Scale 5 ft 2.5 in 136 lbs 8 oz 24.6 kg/m2 140/70 mm[Hg] 94 bpm regular 99% Room Air at Rest 98.2 F oral 16 1.65 m Numeric adult 5 Lab Results None recorded. Allergies Please review your allergy list for accuracy. Contact your provider if this list needs to be updated. Code Code System Name Reaction Severity Onset 6387 RxNorm Lidocaine NKDA Problems Name Status Onset Date Source Hypothyroidism Active 04/01/2016 Type 2 Diabetes Mellitus without Complication Active Type II Diabetes Mellitus Uncontrolled Active 8 Hyperlipidemia Active 05/24/2018 Essential Hypertension Active 05/24/2018 Peripheral Arterial Occlusive Disease Active 05/24/2018 Claudication Active 05/24/2018 Anemia Active 12/14/2018 Moderate Recurrent Major Depression Active 12/14/2018 Bimalleolar Fracture of Ankle Active 12/14/2018 Procedures Date Name Performed by 08/13/2018 Other Notes: ORIF right bimalleolar ankle fx (Dr. Ramos) Information not available 08/12/2018 Other Notes: Right femoral-popliteal bypass. Redo groin SP aortobifemoral graft (Dr. Diaz) Information not available 06/24/2018 Other Notes: Right lower exremity andiogram Information not available 10/11/2013 Colonoscopy Information not avai lable Notes: Procedure: Pleural peel ( Historical import from [employer]) Vaccine List Here is a copy of your most up-to-date vaccination list. Vaccine Type influenza, injectable, quadrivalent 07/12/20170.5 mL influenza, seasonal, injectable 08/06/2014 08/11/2014 07/15/2015 08/10/20160.5 mL 06/27/2018 influenza, trivalent, adjuvanted 06/27/2018 pneumococcal conjugate PCV 13 07/11/2017 07/22/2017 pneumococcal polysaccharide PPV23 01/22/2010 08/11/2014 10/11/2014 Tdap 10/11/2007 10/11/2015 Notes: Some vaccines listed in Documents : #[id number], #[id number], #[id number], #[id number], #[id number], #[id number], #[id number], #[id number], #[id number], #[id number], #[id number], #[id number], #[id number], #[id number] could not be added to this patient's chart. Please review these documents and add these vaccines to the patient's chart manually as needed. Smoking Status Smoking Status Past Encounters 03/07/2019 Claudication; Moderate Recurrent Major Depression; Peripheral Arterial Occlusive Disease; Hypothyroidism; Type II Diabetes Mellitus Uncontrolled; Hyperlipidemia; Essential Hypertension; Renewal of Prescription Aleksandr Suggs MD: [address] [place] [address], [address], [place] [address], Ph. [phone]
--- OUTSIDE RECORDS SUMMARY | 2020-05-01 13:03 | XMS REPORT ---
Author Organization Unknown Address [address] [place] [address] Phone [phone] Care Team Providers Care Dance Entertainer Name Role Phone Aleksandr Suggs MD 3 [phone] Levyjoo Lilly DO 82 [phone] Asha Clemente DPM 120 [phone] Jaquan Christianson MD 130 [phone] Drake Ramos MD 130 [phone] Manpreet Diaz MD 259 [phone] Reason for Visit None recorded. Assessment and Plan The following list includes any diagnoses that were discussed at your visit. 1. Type 2 diabetes mellitus without comp lication HbA1c (hemoglobin A1c), blood 2. Peripheral arterial occlusive disease 3. Hypothyroidism TSH, serum or plasma T4, free, serum 4. Hyperlipidemia CMP, serum or plasma lipid panel, blood 5. Essential hypertension 6. Moderate recurrent major depression 7. Anemia CBC w/ auto diff iron + TIBC + ferritin, serum 8. Bimalleolar fracture of ankle Discussion Note: None recorded. Patient educational handouts: No information available. Plan of Care Reminders Provider Appointments Short 20 03/07/2019 1:20PM Aleksandr mercado MD Lab HbA1C (Hemoglobin a1C), Blood 03/06/2019 [facility] TSH, Serum or Plasma 03/06/2019 [facility] T4, Free, Serum 03/06/2019 [facility] CMP, Serum or Plasma 03/06/2019 [facility] Lipid Panel, Blood 03/06/2019 [facility] CBC W/ Auto Diff 03/06/2019 [facility] Iron + TIBC + Ferritin, Serum 03/06/2019 [facility] Referral None recorded. Procedures None recorded. Surgeries None recorded. Imaging None recorded. Current Medications Your medical record indicates you are on the following medicine. If this list is not consistentwith the medications you are currently taking, or if you are taki ng additional hwfy-zkt-nnhofnq medicines, pleaseinform your provider. Name Prescribed Date Start Date Accu-Chek Luci Plus Meter Accu-Chek Luci Plus test strips Aspir-81 81 mg tablet,delayed release Take 1 tablet every day by oral route. 07/19/2018 atorvastatin 10 mg tablet TAKE 1 TABLET BY MOUTH EVERY DAY B12 daily as directed clopidogrel 75 mg tablet TAKE 1 TABLET BY MOUTH EVERY DAY escitalopram 5 mg tablet TAKE 1 TABLET BY MOUTH EVERY DAY 12/08/2018 glipizide 5 mg tablet levothyroxine 125 mcg tablet Take one tablet by mouth every day losartan 100 mg tablet metformin 500 mg tablet TAKE 1 TABLET BY MOUTH TWICE DAILY mirtazapine 15 mg tablet TAKE 1 TABLET BY MOUTH EVERY DAY nitroglycerin 0.4 mg sublingual tablet Dissolve 1 tablet every 5 minutes for 3 doses as needed for chest pain OneTouch Delica Lancets 33 gauge USE TO CHECK BLOOD GLUCOSE TWICE DAILY BEFORE MEALS OneTouch Ultra2 kit pantoprazole 40 mg tablet,delayed releas e TAKE 1 TABLET BY MOUTH EVERY DAY simple diag mis lancing TRUEplus Lancets 28 gauge ultra thin mis 31g Medications Administered None recorded. Vitals Height Weight BMI Blood Pressure P[facility] Body Surface Area Blood Pressure Cuff Size Pain Scale 5 ft 2.5 in 144 lbs 9.6 oz 26 kg/m2 140/60 mm[Hg] 78 bpm 96% 98 F 1.7 m adult 0 Lab Results None recorded. Allergies Please review [...] available 10/11/2013 Colonoscopy Information not avai lable 11/16/2018 XR, Lumbosacral Spine, 2 or 3 [facility] [address] [facility] [place] [address] (Work Place) Notes: Procedure: Pleural peel ( Historical import from [employer]) Vaccine List Here is a copy of your most up-to-date vaccination list. Vaccine Type influenza, injectable, quadrivalent 07/12/20170.5 mL influenza, seasonal, injectable 08/06/2014 08/11/2014 07/15/2015 08/10/20160.5 mL 06/27/2018 influenza, trivalent, adjuvanted 06/27/2018 pneumococcal conjugate PCV 13 07/11/2017 07/22/2017 pneumococcal polysaccharide PPV23 01/22/2010 08/11/2014 10/11/2014 Tdap 10/11/2007 10/11/2015 Notes: Some vaccines listed in Documents : #[id number], #[id number], #[id number], #[id number], #[id number], #[id number], #[id number], #[id number], #[id number], #[id number], #[id number], #[id number], #[id number] could not be added to this patient's chart. Please review these documents and add these vaccines to the patient's chart manually as needed. Smoking Status Smoking Status Past Encounters 12/07/2018 Type 2 Diabetes Mellitus without Complication; Peripheral Arterial Occlusive Disease; Hypothyroidism; Hyperlipidemia; Essential Hypertension; Moderate Recurrent Major Depression; Anemia; Bimalleolar Fracture of Ankle Aleksandr Suggs MD: [address] [facility], [address], [place] [address], Ph. [phone] 11/16/2018 Adult Health Examination; Weakness of Right Leg; Peripheral Arterial Occlusive Disease; Body Mass Index 25-29 - Overweight; Renewal of Prescription; Mixed Hyperlipidemia; Essential Hypertension; Moderate Recurrent Major Depression; Type II Diabetes Mellitus Uncontrolled Aleksandr Suggs MD: [address] [facility], [address], [place] [address], Ph. [phone]
--- OUTSIDE RECORDS SUMMARY | 2020-05-01 13:03 | XMS REPORT ---
Author Organization Unknown Address [address] [place] [address] Phone [phone] Care Team Providers Care Film Vault Supervisor Name Role Phone Aleksandr Suggs MD 3 [phone] Cam Lilly DO 82 [phone] Asha Clemente DPM 120 [phone] Jaquan Christianson MD 130 [phone] Drake Ramos MD 130 [phone] Manpreet Diaz MD 259 [phone] Reason for Visit None recorded. Assessment and Plan The following list includes any diagnoses that were discussed at your visit. 1. Type II diabetes mellitus uncontrolle d HbA1c (hemoglobin A1c), blood CMP, serum or plasma 2. Mixed hyperlipidemia lipid panel, blood 3. Hypothyroidism TSH + free T4, serum levothyroxine 137 mcg tablet 4. Peripheral vascular disease 5. Pain in finger of right hand XR, finger(s), 2 or more view 6. Impairment of balance 7. Body mass index 25-29 - overweight A healthy lifestyle: care instructions Discussion Note: None recorded. Plan of Care Reminders Provider Appointments None recorded. Lab HbA1C (Hemoglobin a1C), Blood 02/09/2020 [facility] CMP, Serum or Plasma 02/09/2020 [facility] Lipid Panel, Blood 02/09/2020 [facility] TSH + Free T4, Serum 02/09/2020 [facility] Referral None recorded. Procedures None recorded. Surgeries None recorded. Imaging XR, Finger(s), 2 or More View 12/04/2019 [facility] ([facility]) Current Medications Your medical record indicates you are on the following medicine. If this list is not consistentwith the medications you are currently taking, or if you are taki ng additional suys-apz-detetdh medicines, pleaseinform your provider. Name Prescribed Date Start Date Aspir-81 mg tablet,delayed release Take 1 tablet every day by oral route. 07/19/2018 atorvastatin 10 mg tablet TAKE 1 TABLET BY MOUTH EVERY DAY clopidogrel 75 mg tablet TAKE 1 TABLET BY MOUTH EVERY DAY escitalopram 5 mg tablet TAKE 1 TABLET BY MOUTH EVERY DAY glipizide 5 mg tablet TAKE 1 TABLET BY MOUTH TWICE DAILY BEFORE MEALS levothyroxine 125 mcg tablet TAKE 1 TABLET BY MOUTH EVERY DAY 08/31/2019 levothyroxine 137 mcg tablet TAKE 1 TABLET BY MOUTH EVERY DAY 12/04/2019 losartan 100 mg tablet TAKE 1 TABLET BY MOUTH EVERY DAY metformin 500 mg tablet TAKE 1 TABLET BY MOUTH TWICE DAILY metoprolol tartrate 50 mg tablet TAKE 1 [...] Weight BMI Blood Pressure Pulse O2 Saturation [place] rature Respiration Rate Body Surface Area Pain Scale Type Blood Pressure Cuff Size Pain Scale 5 ft 2.5 in 151 lbs 9.6 oz 27.3 kg/m2 128/82 mm[Hg] 62 bpm 97% Room Air at Rest 97.8 F oral 16 1.74 m Numeric adult 6 Results Lab Results None recorded. Allergies Please review [...] Active 12/14/2018 Procedures Date Name Performed by 04/27/2019 Atherectomy Notes: LLE, popliteal artery and placement of 5 X 60 mm SELF (Dr. Cornell) Information not available 08/13/2018 Other Notes: ORIF right bimalleolar ankle fx (Dr. Ramos) Information not available 08/12/2018 Other Notes: Right femoral-popliteal bypass. Redo groin SP aortobifemoral graft (Dr. Daiz) Information not available 06/24/2018 Other Notes: Right lower exremity andiogram Information not available 10/11/2013 Colonoscopy Information not avai lable 12/04/2019 XR, Finger(s), 2 or More [facility] [address] [facility] [place] [address] (Work Place) Notes: Procedure: Pleural peel ( Historical import from [employer]) Vaccine List Here is a copy of your most up-to-date vaccination list. Vaccine Type influenza, injectable, quadrivalent 07/12/20170.5 mL influenza, seasonal, injectable 08/06/2014 08/11/2014 07/15/2015 08/10/20160.5 mL 06/27/2018 influenza, trivalent, adjuvanted 06/27/2018 pneumococcal conjugate PCV 13 07/11/2017 07/22/2017 pneumococcal polysaccharide PPV23 01/22/2010 08/11/2014 10/11/2014 Tdap 10/11/2007 10/11/2015 Notes: Some vaccines listed in Documents : #[id number], #[id number], #[id number], #[id number], #[id number], #[id number], #[id number], #[id number], #[id number], #[id number], #[id number], #[id number], #[id number], #[id number], #[id number], #[id number], #[id number] could not be added to this patient's chart. Please review these documents and add these vaccines to the patient's chart manually as needed. Tobacco Smoking Status Tobacco Smoking Status Former Smoker Past Encounters 12/04/2019 Type II Diabetes Mellitus Uncontrolled; Mixed Hyperlipidemia; Hypothyroidism; Peripheral Vascular Disease; Pain in Finger of Right Hand; Impairment of Balance; Body Mass Index 25-29 - Overweight Aleksandr Suggs MD: [address] [facility], [address], [place] [address], Ph. [phone]
--- OUTSIDE RECORDS SUMMARY | 2020-05-01 13:03 | XMS REPORT ---
Author Organization Unknown Address [address] [place] [address] Phone [phone] Care Team Providers Care Policy Specialist Name Role Phone Aleksandr Suggs MD 3 [phone] Asha Clemente DPM 120 [phone] Manpreet Diaz MD 259 [phone] Reason for Visit None recorded. Assessment and Plan The following list includes any diagnoses that were discussed at your visit. 1. Type II diabetes mellitus uncontrolle d HbA1c (hemoglobin A1c), blood microalbumin, urine 2. Hyperlipidemia CMP, serum or plasma lipid panel, blood 3. Hypothyroidism TSH + free T4, serum 4. Essential hypertension 5. Claudication 6. Peripheral arterial occlusive disease 7. Body mass index 25-29 - overweight A healthy lifestyle: care instructions Discussion Note: None recorded. Plan of Care Reminders Provider Appointments Short 20 11/16/2018 11:00AM Aleksandr heart MD Lab TSH + Free T4, Serum 11/03/2018 [facility] CMP, Serum or Plasma 11/03/2018 [facility] Lipid Panel, Blood 11/03/2018 [facility] HbA1C (Hemoglobin a1C), Blood 11/03/2018 [facility] Microalbumin, Urine 11/03/2018 [facility] Referral None recorded. Procedures None recorded. Surgeries None recorded. Imaging None recorded. Current Medications Your medical record indicates you are on the following medicine. If this list is not consistentwith the medications you are currently taking, or if you are taki ng additional zbet-nwx-wqobukr medicines, pleaseinform your provider. Name Prescribed Date Start Date Accu-Chek Luci Plus Meter Accu-Chek Luci Plus test strips aspirin 325 mg tablet Take 1 tablet every day by oral route. 01/12/2018 atorvastatin 10 mg tablet TAKE 1 TABLET BY MOUTH EVERY DAY 05/23/2018 cilostazol 50 mg tablet Take one tablet by mouth twice daily clopidogrel 75 mg tablet TAKE 1 TABLET BY MOUTH EVERY DAY diclofenac 3 % topical gel APPLY TO LESION AREAS BY TOPICAL ROUTE 2 TIMES PER DAY 03/31/2016 glipizide 5 mg tablet TAKE 1 TABLET BY MOUTH TWICE DAILY BEFORE MEALS levothyroxine 137 mcg tablet TAKE 1 TABLET BY MOUTH EVERY DAY 05/23/2018 losartan 100 mg tablet TAKE 1 TABLET BY MOUTH EVERY DAY metformin 500 mg tablet TAKE 1 TABLET BY MOUTH TWICE DAILY 05/10/2018 metoprolol tartrate 50 mg tablet TAKE 1 TABLET BY MOUTH TWICE DAILY WITH MEALS 05/23/2018 OneTouch Delica Lancets 33 gauge Use to test blood sugar twice daily before AM and PM meals. OneTouch Ultra2 kit oxycodone-acetaminophen 5 mg-325 mg tabl et Take 1 tablet every 8 hours by oral route as needed for 3 days. 05/11/2018 pantoprazole 40 mg tablet,delayed releas e TAKE 1 TABLET BY MOUTH EVERY DAY 05/26/2018 simple diag mis lancing TRUEplus Lancets 28 gauge ultra thin mis 31g Medications Administered None recorded. Vitals Height Weight BMI Blood Pressure Pulse O2 Saturation [facility] Body Surface Area Blood Pressure Cuff Size Pain Scale 5 ft 2.5 in 153 lbs 12.8 oz 27.7 kg/m2 140/78 mm[Hg] 73 bpm 98% 98.8 F 1.75 m adult 4 Lab Results None recorded. Allergies Please review [...] Occlusive Disease Active 05/24/2018 Claudication Active 05/24/2018 Procedures Date Name Performed by 10/11/2013 Colonoscopy Information not avai lable Notes: Procedure: Pleural peel ( Historical import from [employer]) Vaccine List Here is a copy of your most up-to-date vaccination list. Vaccine Type influenza, injectable, quadrivalent 07/12/20170.5 mL influenza, seasonal, injectable 08/06/2014 08/11/2014 07/15/2015 08/10/20160.5 mL pneumococcal conjugate PCV 13 07/11/2017 07/22/2017 pneumococcal polysaccharide PPV23 01/22/2010 08/11/2014 10/11/2014 Tdap 10/11/2007 10/11/2015 Notes: Some vaccines listed in Documents : #[id number], #[id number], #[id number], #[id number], #[id number], #[id number], #[id number], #[id number] could not be added to this patient's chart. Please review these documents and add these vaccines to the patient's chart manually as needed. Smoking Status Smoking Status Past Encounters 05/10/2018 Type II Diabetes Mellitus Uncontrolled; Hyperlipidemia; Hypothyroidism; Essential Hypertension; Claudication; Peripheral Arterial Occlusive Disease; Body Mass Index 25-29 - Overweight Aleksandr Suggs MD: [address] [place] [address], [address], [place] [address], Ph. [phone]
--- OUTSIDE RECORDS SUMMARY | 2020-05-01 13:03 | XMS REPORT ---
Author Organization Unknown Address [address] [place] [address] Phone [phone] Care Team Providers Care Housing Case Manager Name Role Phone Aleksandr Suggs MD 3 [phone] Manpreet Diaz MD 259 [phone] Reason for Visit None recorded. Assessment and Plan The following list includes any diagnoses that were discussed at your visit. 1. Acute sinusitis azithromycin 250 mg tablet 2. Esophagitis pantoprazole 40 mg tablet,delayed rele ase Discussion Note: None recorded. Patient educational handouts: No information available. Plan of Care Reminders Provider Appointments Short 03/28/2018 2:30PM Aleksandr mercado MD Lab None recorded. Referral None recorded. Procedures None recorded. Surgeries None recorded. Imaging None recorded. Current Medications Your medical record indicates you are on the following medicine. If this list is not consistentwith the medications you are currently taking, or if you are taki ng additional wrva-mpv-ujngiht medicines, pleaseinform your provider. Name Prescribed Date Start Date Accu-Chek Luci Plus Meter Accu-Chek Luci Plus test strips aspirin 325 mg tablet Take 1 tablet every day by oral route. 09/10/2017 atorvastatin 10 mg tablet TAKE 1 TABLET BY MOUTH EVERY DAY azithromycin 250 mg tablet TAKE 2 TABLETS (500 MG) BY ORAL ROUTE ONCE DAILY FOR 1 DAY THEN 1 TABLET (250 MG) BY ORAL ROUTE ONCE DAILY FOR 4 DAYS 01/04/2018 cilostazol 50 mg tablet Take 1 tablet twice a day by oral route. clopidogrel 75 mg tablet TAKE 1 TABLET BY MOUTH EVERY DAY diclofenac 3 % topical gel APPLY TO LESION AREAS BY TOPICAL ROUTE 2 TIMES PER DAY 03/31/2016 glipizide 5 mg tablet TAKE 1 TABLET BY MOUTH TWICE DAILY BEFORE MEALS 01/07/2018 levothyroxine 137 mcg tablet Take 1 tablet every day by oral route for 30 days. losartan 100 mg tablet TAKE 1 TABLET [...] a day by oral route as needed. pantoprazole 40 mg tablet,delayed releas e Take 1 tablet every day by oral route. 01/04/2018 simple diag mis lancing TRUEplus Lancets 28 gauge ultra thin mis 31g Medications Administered None recorded. Vitals Height Weight BMI Blood Pressure Pulse O2 Saturation [facility] Body Surface Area Blood Pressure Cuff Size Pain Scale 5 ft 2.99 in 151 lbs 12.8 oz 26.9 kg/m2 150/72 mm[Hg] 83 bpm 98% 97.4 F 1.75 m adult 0 Lab Results None recorded. Allergies Please review your allergy list for accuracy. Contact your provider if this list needs to be updated. Code Code System Name Reaction Severity Onset 6387 RxNorm Lidocaine NKDA Problems Name Status Onset Date Source Hypothyroidism Active 04/01/2016 Type 2 Diabetes Mellitus without Complication Active Procedures Notes: Procedure: Pleural peel ( Historical import from [employer]) Vaccine List Here is a copy of your most up-to-date vaccination list. Vaccine Type influenza, injectable, quadrivalent 07/12/20170.5 mL influenza, seasonal, injectable 08/06/2014 08/11/2014 07/15/2015 08/10/20160.5 mL pneumococcal conjugate PCV 13 07/11/2017 07/22/2017 pneumococcal polysaccharide PPV23 01/22/2010 08/11/2014 10/11/2014 Tdap 10/11/2007 Notes: Some vaccines listed in Documents : #[id number], #[id number], #[id number], #[id number], #[id number], #[id number], #[id number] could not be added to this patient's chart. Please review these documents and add these vaccines to the patient's chart manually as needed. Smoking Status Smoking Status Past Encounters 01/04/2018 Acute Sinusitis; Esophagitis Aleksandr Suggs MD: [address] [place] [address], [address], [place] [address], Ph. [phone]
--- OUTSIDE RECORDS SUMMARY | 2020-05-01 13:03 | XMS REPORT ---
Author Organization Unknown Address [address] [place] [address] Phone [phone] Care Team Providers Care Financial Adviser Name Role Phone Aleksandr Sgugs MD 3 [phone] Manpreet Diaz MD 259 [phone] Reason for Visit None recorded. Assessment and Plan The following list includes any diagnoses that were discussed at your visit. 1. Type II diabetes mellitus uncontrolle d 2. Hypothyroidism 3. Mixed hyperlipidemia 4. Peripheral arterial occlusive disease 5. Essential hypertension 6. Memory impairment Discussion Note: None recorded. Patient educational handouts: No information available. Plan of Care Reminders Provider Appointments 03/23/2018 11:00AM Aleksandr heart MD Lab None recorded. Referral None recorded. Procedures None recorded. Surgeries None recorded. Imaging None recorded. Current Medications Your medical record indicates you are on the following medicine. If this list is not consistentwith the medications you are currently taking, or if you are taki ng additional sdbe-kbo-aizbhnq medicines, pleaseinform your provider. Name Prescribed Date Start Date Accu-Chek Luci Plus Meter Accu-Chek Luci Plus test strips aspirin 325 mg tablet Take 1 tablet every day by oral route. 09/10/2017 atorvastatin 10 mg tablet TAKE 1 TABLET BY MOUTH EVERY DAY 11/26/2017 cilostazol 50 mg tablet Take 1 tablet twice a day by oral route. clopidogrel 75 mg tablet Take 1 tablet every day by oral route. diclofenac 3 % topical gel APPLY TO LESION AREAS BY TOPICAL ROUTE 2 TIMES PER DAY 03/31/2016 glipizide 5 mg tablet TAKE 1 TABLET BY MOUTH TWICE DAILY BEFORE MEALS levothyroxine 150 mcg tablet TAKE 1 TABLET BY MOUTH EVERY DAY losartan 100 mg tablet TAKE 1 TABLET BY MOUTH EVERY DAY metformin 500 mg tablet Take 1 tablet twice a day by oral route. metoprolol tartrate 50 mg tablet TAKE 1 TABLET BY MOUTH TWICE DAILY WITH MEALS 11/29/2017 OneTouch Delica Lancets 33 gauge Use to test blood sugar twice daily before AM and PM meals. [employer] Software[employer] Ultra2 kit oxycodone-acetaminophen 5 mg-325 mg tabl et Take 1 tablet twice a day by oral route as needed. simple diag mis lancing TRUEplus Lancets 28 gauge ultra thin mis 31g Medications Administered None recorded. Vitals Height Weight BMI Blood Pressure Pulse O2 Saturation [facility] Body Surface Area Blood Pressure Cuff Size Pain Scale 5 ft 2.99 in 151 lbs 26.8 kg/m2 138/60 mm[Hg] 73 bpm 90% 97.9 F 1.74 m adult 0 Lab Results None recorded. Allergies Please review your allergy list for accuracy. Contact your provider if this list needs to be updated. Code Code System Name Reaction Severity Onset 6387 RxNorm Lidocaine NKDA Problems Name Status Onset Date Source Hypothyroidism Active 04/01/2016 Type 2 Diabetes Mellitus without Complication Active Procedures Notes: Procedure: Pleural peel ( Historical import from [employer]) Vaccine List Here is a copy of your most up-to-date vaccination list. Vaccine Type influenza, injectable, quadrivalent 07/12/20170.5 mL influenza, seasonal, injectable 08/06/2014 08/11/2014 07/15/2015 08/10/20160.5 mL pneumococcal conjugate PCV 13 07/11/2017 07/22/2017 pneumococcal polysaccharide PPV23 01/22/2010 08/11/2014 10/11/2014 Tdap 10/11/2007 Notes: Some vaccines listed in Documents : #[id number], #[id number], #[id number], #[id number], #[id number], #[id number] could not be added to this patient's chart. Please review these documents and add these vaccines to the patient's chart manually as needed. Smoking Status Smoking Status Past Encounters 11/25/2017 Type II Diabetes Mellitus Uncontrolled; Hypothyroidism; Mixed Hyperlipidemia; Peripheral Arterial Occlusive Disease; Essential Hypertension; Memory Impairment Aleksandr Suggs MD: [address] [place] [address], [address], [place] [address], Ph. [phone]
--- OUTSIDE RECORDS SUMMARY | 2020-05-01 13:03 | XMS REPORT ---
Author Organization Unknown Address [address] [place] [address] Phone [phone] Care Team Providers Care Sap Functional Analyst Name Role Phone Aleksandr Suggs MD 3 [phone] Levyjoo Lilly DO 82 [phone] Asha Clemente DPM 120 [phone] Manpreet Diaz MD 259 [phone] Reason for Visit None recorded. Assessment and Plan The following list includes any diagnoses that were discussed at your visit. 1. Angina pectoris 2. Peripheral vascular disease 3. Essential hypertension 4. Hypothyroidism 5. Body mass index 25-29 - overweight A healthy lifestyle: care instructions Discussion Note: None recorded. Plan of Care Reminders Provider Appointments 11/16/2018 11:00AM Aleksandr heart MD Lab None recorded. Referral None recorded. Procedures None recorded. Surgeries None recorded. Imaging None recorded. Current Medications Your medical record indicates you are on the following medicine. If this list is not consistentwith the medications you are currently taking, or if you are taki ng additional sdzc-kin-ixjqego medicines, pleaseinform your provider. Name Prescribed Date Start Date Accu-Chek Luci Plus Meter Accu-Chek Luci Plus test strips amlodipine 10 mg tablet Take 1 tablet every day by oral route. Aspir-81 81 mg tablet,delayed release Take 1 tablet every day by oral route. 07/19/2018 atorvastatin 10 mg tablet TAKE 1 TABLET BY MOUTH EVERY DAY cilostazol 100 mg tablet Take 1 tablet twice a day by oral route. clopidogrel 75 mg tablet TAKE 1 TABLET BY MOUTH EVERY DAY diclofenac 3 % topical gel APPLY TO LESION AREAS BY TOPICAL ROUTE 2 TIMES PER DAY 03/31/2016 glipizide 5 mg tablet TAKE 1 TABLET BY MOUTH TWICE DAILY BEFORE MEALS hydrochlorothiazide 12.5 mg capsule Take 1 capsule every day by oral route. levothyroxine 125 mcg tablet losartan 100 mg tablet TAKE 1 TABLET BY MOUTH EVERY DAY metformin 500 mg tablet TAKE 1 TABLET BY MOUTH TWICE DAILY metoprolol tartrate 50 mg tablet TAKE 1 TABLET BY MOUTH TWICE DAILY WITH MEALS nitroglycerin 0.4 mg sublingual tablet Dissolve 1 tablet every 5 minutes for 3 doses as needed for chest pain OneTouch Delica Lancets 33 gauge Use to test blood sugar twice daily before AM and PM meals. OneTouch Ultra2 kit oxycodone-acetaminophen 5 mg-325 mg tabl et Take 1 tablet every 8 hours by oral route as needed for 3 days. pantoprazole 40 mg tablet,delayed releas e TAKE 1 TABLET BY MOUTH EVERY DAY simple diag mis lancing TRUEplus Lancets 28 gauge ultra thin mis 31g Medications Administered None recorded. Vitals Height Weight BMI Blood Pressure Pulse O2 Saturation [facility] Body Surface Area Blood Pressure Cuff Size Pain Scale 5 ft 2.5 in 147 lbs 9.6 oz 26.6 kg/m2 130/60 mm[Hg] 61 bpm 98% 97.6 F 1.72 m adult 0 Lab Results None recorded. [...] Active 05/24/2018 Procedures Date Name Performed by 06/24/2018 Other Notes: Right lower exremity andiogram Information not available 10/11/2013 Colonoscopy Information not avai lable Notes: Procedure: Pleural peel ( Historical import from [employer]) Vaccine List Here is a copy of your most up-to-date vaccination list. Vaccine Type influenza, injectable, quadrivalent 07/12/20170.5 mL influenza, seasonal, injectable 08/06/2014 08/11/2014 07/15/2015 08/10/20160.5 mL 06/27/2018 influenza, trivalent, adjuvanted 06/27/2018 pneumococcal conjugate PCV 13 07/11/2017 07/22/2017 pneumococcal polysaccharide PPV23 01/22/2010 08/11/2014 10/11/2014 Tdap 10/11/2007 10/11/2015 Notes: Some vaccines listed in Documents : #[id number], #[id number], #[id number], #[id number], #[id number], #[id number], #[id number], #[id number], #[id number] could not be added to this patient's chart. Please review these documents and add these vaccines to the patient's chart manually as needed. Smoking Status Smoking Status Past Encounters 07/21/2018 Angina Pectoris; Peripheral Vascular Disease; Essential Hypertension; Hypothyroidism; Body Mass Index 25-29 - Overweight Aleksandr Suggs MD: [address] [place] [address], [address], [place] [address], Ph. [phone]
--- OUTSIDE RECORDS SUMMARY | 2020-05-01 13:03 | XMS REPORT ---
Author Organization Unknown Address [address] [place] [address] Phone [phone] Care Team Providers Care Group Exercise Class Instructor Name Role Phone Aleksandr Suggs MD 3 [phone] Manpreet Diaz MD 259 [phone] Reason for Visit None recorded. Assessment and Plan The following list includes any diagnoses that were discussed at your visit. 1. Renal mass CT, abdomen + pelvis, w/ contrast 2. Type II diabetes mellitus uncontrolle d HbA1c (hemoglobin A1c), blood 3. Hyperlipidemia CMP, serum or plasma lipid panel, blood 4. Hypothyroidism TSH, serum or plasma T4, free, serum 5. Fatigue CBC w/ diff Discussion Note: None recorded. Patient educational handouts: No information available. Plan of Care Reminders Provider Appointments Short 11/25/2017 9:20AM Aleksandr mercado MD Lab CMP, Serum or Plasma 11/25/2017 [facility] Lipid Panel, Blood 11/25/2017 [facility] HbA1C (Hemoglobin a1C), Blood 11/25/2017 [facility] TSH, Serum or Plasma 11/25/2017 [facility] T4, Free, Serum 11/25/2017 [facility] CBC W/ Diff 11/25/2017 [facility] Referral None recorded. Procedures None recorded. Surgeries None recorded. Imaging CT, Abdomen + Pelvis, W/ Contrast 10/14/2017 [facility] ([facility]) Current Medications Your medical record indicates you are on the following medicine. If this list is not consistentwith the medications you are currently taking, or if you are taki ng additional akhf-uqh-xrwzqyq medicines, pleaseinform your provider. Name Prescribed Date [...] DAILY BEFORE MEALS levothyroxine 150 mcg tablet Take 1 tablet [...] Weight BMI Blood Pressure Pulse O2 Saturation [facility] Body Surface Area Blood Pressure Cuff Size Pain Scale 5 ft 2.99 in 150 lbs 3.2 oz 26.6 kg/m2 150/88 mm[Hg] 65 bpm 94% 98 F 1.74 m adult 3 Lab Results None recorded. Allergies Please review your allergy list for accuracy. Contact your provider if this list needs to be updated. Code Code System Name Reaction Severity Onset 6387 RxNorm Lidocaine NKDA Problems Name Status Onset Date Source Hypothyroidism Active 04/01/2016 Type 2 Diabetes Mellitus without Complication Active Procedures Date Name Performed by 10/14/2017 CT, Abdomen + Pelvis, W/ Contrast [facility] (Bi-Directional Rad) [address] [place] [address] (Work Place) Notes: Procedure: Pleural peel ( Historical import from [employer]) Vaccine List Here is a copy of your most up-to-date vaccination list. Vaccine Type influenza, injectable, quadrivalent 07/12/20170.5 mL influenza, seasonal, injectable 08/06/2014 08/11/2014 07/15/2015 08/10/20160.5 mL pneumococcal conjugate PCV 13 07/11/2017 07/22/2017 pneumococcal polysaccharide PPV23 01/22/2010 08/11/2014 10/11/2014 Tdap 10/11/2007 Notes: Some vaccines listed in Documents : #[id number], #[id number], #[id number], #[id number], #[id number] could not be added to this patient's chart. Please review these documents and add these vaccines to the patient's chart manually as needed. Smoking Status Smoking Status Past Encounters 10/14/2017 Renal Mass; Type II Diabetes Mellitus Uncontrolled; Hyperlipidemia; Hypothyroidism; Fatigue Aleksandr Suggs MD: [address] [place] [address], [address], [place] [address], Ph. [phone]
--- OUTSIDE RECORDS SUMMARY | 2020-05-01 13:03 | XMS REPORT ---
Author Organization Unknown Address [address] [place] [address] Phone [phone] Care Team Providers Care Manager Social Responsibility Name Role Phone Aleksandr Suggs MD 3 [phone] Cam Lilly DO 82 [phone] Asha Clemente DPM 120 [phone] Jaquan Christianson MD 130 [phone] Drake Ramos MD 130 [phone] Manpreet Diaz MD 259 [phone] Reason for Visit None recorded. Assessment and Plan The following list includes any diagnoses that were discussed at your visit. 1. Bimalleolar fracture of ankle 2. Peripheral arterial occlusive disease 3. Low blood pressure CMP, serum or plasma 4. Major depressive disorder mirtazapine 15 mg tablet 5. Anemia CBC w/ auto diff iron + TIBC + ferritin, serum Discussion Note: None recorded. Patient educational handouts: No information available. Plan of Care Reminders Provider Appointments 09/12/2018 4:00PM Aleksandr mercado MD 11/16/2018 11:00AM Aleksandr heart MD Lab CBC W/ Auto Diff 08/22/2018 [facility] Iron + TIBC + Ferritin, Serum 08/22/2018 [facility] CMP, Serum or Plasma 08/22/2018 [facility] Referral None recorded. Procedures None recorded. Surgeries None recorded. Imaging None recorded. Current Medications Your medical record indicates you are on the following medicine. If this list is not consistentwith the medications you are currently taking, or if you are taki ng additional krpg-lfu-ypxungi medicines, pleaseinform your provider. Name Prescribed Date [...] TOPICAL ROUTE 2 TIMES PER DAY 03/31/2016 hydrochlorothiazide 12.5 mg capsule Take 1 capsule every day by oral route. hydromorphone 2 mg tablet Take 1 tablet every 6 hours by oral route as needed for 2 days. Iron (ferrous sulfate) 325 mg (65 mg iro n) tablet Take 1 tablet every day by oral route. 08/29/2018 levothyroxine 125 mcg tablet losartan 100 mg tablet TAKE 1 TABLET BY MOUTH EVERY DAY metformin 500 mg tablet TAKE 1 TABLET BY MOUTH TWICE DAILY metoprolol tartrate 50 mg tablet TAKE 1 TABLET BY MOUTH TWICE DAILY WITH MEALS mirtazapine 15 mg tablet Take 1 tablet every day by oral route. 08/22/2018 nitroglycerin 0.4 mg sublingual tablet Dissolve 1 tablet every 5 minutes for 3 doses as needed for chest pain OneTouch Delica Lancets 33 gauge USE TO CHECK BLOOD GLUCOSE TWICE DAILY BEFORE MEALS OneTouch Ultra2 kit oxycodone-acetaminophen 5 mg-325 mg tabl et Take 1 tablet every 8 hours by oral route as needed for 3 days. pantoprazole 40 mg tablet,delayed releas e TAKE 1 TABLET BY MOUTH EVERY DAY simple diag mis lancing tramadol 50 mg tablet TRUEplus Lancets 28 gauge ultra thin mis 31g Medications Administered None recorded. Vitals Height Blood Pressure Pulse O2 Saturation Temperature Brent n Scale Blood Pressure Cuff Size 5 ft 2.5 in 132/60 mm[Hg] 80 bpm 98% 98.1 F 7 adult Lab Results Date Name Specimen Result Interpretation Description Value Range Status Address 08/30/2018 GFR, Estimated (eGFR), Serum BLOOD GFR (CKD-epi) 88.0 mL/min/1.73 m2 Final [facility] ([facility]): [place] 08/30/2018 CMP, Serum or Plasma BLOOD Sodium 145 mmo l/L 136-145 mmol/L Final [facility] ([facility]) : [place] BLOOD Potassium 4.5 mmol/L 3.5-5.1 mmol/L Final [facility] ([facility]): [place] BLOOD Chloride 106 mmol/L 98-107 mmol/L [facility] ([facility]): [place] BLOOD Co2 25 mmol/L 22-29 mmol/L Final [facility] ([facility]): [place] BLOOD Glucose 94 mg/dL 70-99 mg/dL Final [facility] ([facility]): [place] BLOOD Bun 13 mg/dL 8-23 mg/dL Final [facility] ([facility]): [place] BLOOD Creatinine 0.63 mg/dL 0.50-0.90 mg/d L Final [facility] ([facility]): [place] BLOOD Calcium 9.5 mg/dL 8.8-10.2 mg/dL Fin al [facility] ([facility]): [place] BLOOD Total Protein 6.8 g/dL 6.4-8.3 g/dL Final [facility] ([facility]): [place] BLOOD Albumin Level 3.9 g/dL 3.5-5.2 g/dL Final [facility] ([facility]): [place] BLOOD Bili Total 0.4 mg/dL <=1.0 mg/dL Fin al [facility] ([facility]): [place] BLOOD Alk Phos 83 units/L 35-105 units/L F inal [facility] ([facility]): [place] BLOOD Ast 20 units/L 10-33 units/L Final [facility] ([facility]): [place] BLOOD ALT(SGPT) 11 units/L 10-33 units/L F inal [facility] ([facility]): [place] BLOOD Agap 14 3-20 Final [facility] ([facility]): [place] 08/30/2018 Wbc Diff, Auto, Blood BLOOD Neutrophils 6 3.1 % 42.7-77.1 % Final [facility] ([facility]) : [place] BLOOD Lymphs 26.0 % 12.1-45.3 % Final [facility] ([facility]): [place] BLOOD Monocytes % 6.9 % 4.4-12.5 % Final [facility] ([facility]): [place] BLOOD Eosinophil % 3.0 % 0.0-5.6 % Final [facility] ([facility]): [place] BLOOD Basophil % 0.4 % 0.0-1.0 % Final [facility] ([facility]): [place] BLOOD Immature Granulocytes % 0.6 % 0.0-1 .0 % Final [facility] ([facility]): [place] BLOOD Neutro Absolute 3.2 x10'3/microL 1.4 -6.8 x10'3/microL Final [facility] ([facility]): [place] BLOOD Lymph Absolute 1.3 x10'3/microL 0.6- 3.2 x10'3/microL Final [facility] ([facility]): [place] BLOOD Navarro Absolute 0.4 x10'3/microL 0.2-0 .9 x10'3/microL Final [facility] ([facility]): [place] BLOOD Eos Absolute 0.2 x10'3/microL 0.0-0. 6 x10'3/microL Final [facility] ([facility]): [place] BLOOD Basophil Absolute 0.0 x10'3/microL 0.0-0.1 x10'3/microL Final [facility] ([facility]): [place] BLOOD Immature Granulocytes Abs 0.03 x10'3/microL 0.01-0.03 x10'3/microL Final [facility] ([facility]): [place] 08/30/2018 CBC W/ Diff BLOOD Low Wbc 5.0 x10'3/microL 5.4-10.8 x10'3/microL Final [facility] ([facility]) : [place] BLOOD Low Rbc 3.56 x10'6/microL 3.79-5.19 x10 '6/microL Final [facility] ([facility]): [place] BLOOD Low Hgb 9.9 g/dL 11.2-15.7 g/dL Final [facility] ([facility]): [place] BLOOD Low Hct 33.8 % 34.1-44.9 % Final [facility] ([facility]): [place] BLOOD Mcv 94.9 fL 83.7-99.5 fL Final [facility] ([facility]): [place] BLOOD Mch 27.8 pg 27.6-33.1 pg Final [facility] ([facility]): [place] BLOOD Low Mchc 29.3 g/dL 31.3-34.9 g/dL Final [facility] ([facility]): [place] BLOOD Rdw 49.2 fL 38.6-50.2 fL Final [facility] ([facility]): [place] BLOOD Platelet 276 x10'3/microL 126-432 x1 0'3/microL Final [facility] ([facility]): [place] BLOOD Mpv 10.0 fL 9.2-12.2 fL Final [facility] ([facility]): [place] BLOOD Nrbc 0.0 /100WBC 0.0-0.2 /100WBC Fin al [facility] ([facility]): [place] BLOOD Abs Nrbcs 0.00 x10'3/microL 0.00-0.0 1 x10'3/microL Final [facility] ([facility]): [place] Allergies Please review your allergy list for [...] Active 05/24/2018 Procedures Date Name Performed by 08/13/2018 Other Notes: ORIF right bimalleolar ankle fx (Dr. Ramos) Information not available 08/12/2018 Other Notes: Right femoral-popliteal bypass. Redo groin SP aortobifemoral graft (Dr. Diaz) Information not available 06/24/2018 Other Notes: Right lower exremity andiogram Information not available 10/11/2013 Colonoscopy Information not avai lable Notes: Procedure: Pleural peel ( Historical import from [facility]) Vaccine List Here is a copy of your most up-to-date vaccination list. Vaccine Type influenza, injectable, quadrivalent 07/12/20170.5 mL influenza, seasonal, injectable 08/06/2014 08/11/2014 07/15/2015 08/10/20160.5 mL 06/27/2018 influenza, trivalent, adjuvanted 06/27/2018 pneumococcal conjugate PCV 13 07/11/2017 07/22/2017 pneumococcal polysaccharide PPV23 01/22/2010 08/11/2014 10/11/2014 Tdap 10/11/2007 10/11/2015 Notes: Some vaccines listed in Documents : #[id number], #[id number], #[id number], #[id number], #[id number], #[id number], #[id number], #[id number], #[id number], #[id number] could not be added to this patient's chart. Please review these documents and add these vaccines to the patient's chart manually as needed. Smoking Status Smoking Status Past Encounters 08/22/2018 Bimalleolar Fracture of Ankle; Peripheral Arterial Occlusive Disease; Low Blood Pressure; Major Depressive Disorder; Anemia Aleksandr Suggs MD: [address] [place] [address], [address], [place] [address], Ph. [phone]
--- OUTSIDE RECORDS SUMMARY | 2020-05-01 13:03 | XMS REPORT ---
Author Organization Unknown Address [address] [place] [address] Phone [phone] Care Team Providers Care Product Development Carpenter Name Role Phone Aleksandr Suggs MD 3 [phone] Cam Lilly DO 82 [phone] Asha Clemente DPM 120 [phone] Jaquan Christianson MD 130 [phone] Drake Ramos MD 130 [phone] Manpreet Diaz MD 259 [phone] Reason for Visit None recorded. Assessment and Plan The following list includes any diagnoses that were discussed at your visit. 1. Peripheral arterial occlusive disease 2. Hypothyroidism TSH, serum or plasma T4, free, serum 3. Hyperlipidemia CMP, serum or plasma lipid panel, serum 4. Essential hypertension CBC w/ diff 5. Type II diabetes mellitus uncontrolle d HbA1c (hemoglobin A1c), blood 6. Body mass index 25-29 - overweight A healthy lifestyle: care instructions Discussion Note: None recorded. Plan of Care Reminders Provider Appointments Short 08/31/2019 1:40PM Aleksandr mercado MD Lab HbA1C (Hemoglobin a1C), Blood 08/11/2019 [facility] CMP, Serum or Plasma 08/11/2019 [facility] Lipid Panel, Serum 08/11/2019 [facility] TSH, Serum or Plasma 08/11/2019 [facility] T4, Free, Serum 08/11/2019 [facility] CBC W/ Diff 08/11/2019 [facility] Referral None recorded. Procedures None recorded. Surgeries None recorded. Imaging None recorded. Current Medications Your medical record indicates you are on the following medicine. If this list is not consistentwith the medications you are currently taking, or if you are taki ng additional [id number] medicines, pleaseinform your provider. Name Prescribed Date Start Date Aspir-81 mg tablet,delayed release Take 1 tablet every day by oral route. 07/19/2018 atorvastatin 10 mg tablet TAKE 1 TABLET BY MOUTH EVERY DAY 06/06/2019 cilostazol 100 mg tablet Take 1 tablet twice a day by oral route for 90 days. clopidogrel 75 mg tablet TAKE 1 TABLET BY MOUTH EVERY DAY 05/29/2019 escitalopram 5 mg tablet TAKE 1 TABLET BY MOUTH EVERY DAY glipizide 5 mg tablet TAKE 1 TABLET BY MOUTH TWICE DAILY BEFORE MEALS levothyroxine 125 mcg tablet TAKE 1 TABLET BY MOUTH EVERY DAY 06/02/2019 losartan 100 mg tablet TAKE 1 TABLET BY MOUTH EVERY DAY metformin 500 mg tablet TAKE 1 TABLET BY MOUTH TWICE DAILY 02/08/2019 metoprolol tartrate 50 mg tablet TAKE 1 TABLET BY MOUTH EVERY DAY 06/02/2019 mirtazapine 15 mg tablet nitroglycerin 0.4 mg sublingual tablet Dissolve 1 [...] Weight BMI Blood Pressure Pulse O2 Saturation Langley rature Respiration Rate Body Surface Area Pain Scale Type Blood Pressure Cuff Size Pain Scale 5 ft 2.5 in 143 lbs With clothes 25.7 kg/m2 140/78 mm[ Hg] 76 bpm regular 97% Room Air at Rest 97.9 F oral 16 1.69 m Numeric adult 5 Lab Results None [...] Procedure: Pleural peel ( Historical import from [facility]) Vaccine List Here is a copy of your most up-to-date vaccination list. Vaccine Type influenza, injectable, quadrivalent 07/12/20170.5 mL influenza, seasonal, injectable 08/06/2014 08/11/2014 07/15/2015 08/10/20160.5 mL 06/27/2018 influenza, trivalent, adjuvanted 06/27/2018 pneumococcal conjugate PCV 13 07/11/2017 07/22/2017 pneumococcal polysaccharide PPV23 01/22/2010 08/11/2014 10/11/2014 Tdap 10/11/2007 10/11/2015 Notes: Some vaccines listed in Documents : #[id number], #[id number], #[id number], #[id number], #[id number], #[id number], #[id number], #[id number], #[id number], #[id number], #[id number], #[id number], #[id number], #[id number], #[id number] could not be added to this patient's chart. Please review these documents and add these vaccines to the patient's chart manually as needed. Tobacco Smoking Status Tobacco Smoking Status Past Encounters 05/31/2019 Peripheral Arterial Occlusive Disease; Hypothyroidism; Hyperlipidemia; Essential Hypertension; Type II Diabetes Mellitus Uncontrolled; Body Mass Index 25-29 - Overweight Aleksandr Suggs MD: [address] [place] [address], [address], [place] [address], Ph. [phone]
--- OUTSIDE RECORDS SUMMARY | 2020-05-01 13:03 | XMS REPORT ---
Author Organization Unknown Address [address] [place] [address] Phone [phone] Care Team Providers Care Flower Arranger Name Role Phone Aleksandr Suggs MD 3 [phone] Cam Lilly DO 82 [phone] Asha Clemente DPM 120 [phone] Jaquan Christianson MD 130 [phone] Drake Ramos MD 130 [phone] Manpreet Diaz MD 259 [phone] Reason for Visit None recorded. Assessment and Plan The following list includes any diagnoses that were discussed at your visit. 1. Adult health examination 2. Weakness of right leg XR, lumbosacral spine, 2 or 3 view 3. Peripheral arterial occlusive disease 4. Body mass index 25-29 - overweight A healthy lifestyle: care instructions 5. Renewal of prescription pantoprazole 40 mg tablet,delayed rele ase 6. Mixed hyperlipidemia 7. Essential hypertension 8. Moderate recurrent major depression 9. Type II diabetes mellitus uncontrolle d Discussion Note: None recorded. Plan of Care Reminders Provider Appointments Short 20 12/07/2018 11:20AM Aleksandr heart MD Lab None recorded. Referral None recorded. Procedures None recorded. Surgeries None recorded. Imaging XR, Lumbosacral Spine, 2 or 3 View 11/16/2018 [facility] ([facility] Current Medications Your medical record indicates you are on the following medicine. If this list is not consistentwith the medications you are currently taking, or if you are taki ng additional ggwv-rdf-krajsvd medicines, pleaseinform your provider. Name Prescribed Date Start Date Accu-Chek Luci Plus Meter Accu-Chek Luci Plus test strips Aspir-81 81 mg tablet,delayed release Take 1 tablet every day by oral route. 07/19/2018 atorvastatin 10 mg tablet TAKE 1 TABLET BY MOUTH EVERY DAY B12 daily as directed clopidogrel 75 mg tablet TAKE 1 TABLET BY MOUTH EVERY DAY escitalopram 5 mg tablet Take 1 tablet every day by oral route. glipizide 5 mg tablet Iron (ferrous sulfate) 325 mg (65 mg iro n) tablet Take 1 tablet every day by oral route. 08/29/2018 levothyroxine 125 mcg tablet losartan 100 mg tablet metformin 500 mg tablet TAKE 1 TABLET BY MOUTH TWICE DAILY mirtazapine 15 mg tablet TAKE 1 TABLET BY MOUTH EVERY DAY 11/17/2018 nitroglycerin 0.4 mg sublingual tablet Dissolve 1 tablet every 5 minutes for 3 doses as needed for chest pain OneTouch Delica Lancets 33 gauge USE TO CHECK BLOOD GLUCOSE TWICE DAILY BEFORE MEALS OneTouch Ultra2 kit pantoprazole 40 mg tablet,delayed releas e TAKE 1 TABLET BY MOUTH EVERY DAY 11/16/2018 simple diag mis lancing TRUEplus Lancets 28 gauge ultra thin mis 31g Medications Administered None recorded. Vitals Height Weight BMI Blood Pressure Pulse O2 Saturation M[place] rature Body Surface Area Blood Pressure Cuff Size Pain Scale 5 ft 2.5 in 145 lbs 9.6 oz 26.2 kg/m2 140/58 mm[Hg] 78 bpm 97% 98 F 1.71 m adult 3 Lab Results Date Name Specimen Result Interpretation Description Value Range Status Address 11/14/2018 CMP, Serum or Plasma No observation recor ded. [facility]: [address] [facility] All[facility] Please review your allergy list for [...] XR, Lumbosacral Spine, 2 or [facility] [address] [place] [address] (Work [address]) Notes: Procedure: Pleural peel ( Historical import from [employer]) Vaccine List Here is a copy of your most up-to-date vaccination list. Vaccine Type influenza, injectable, quadrivalent 07/12/20170.5 mL influenza, seasonal, injectable 08/06/2014 08/11/2014 07/15/2015 08/10/20160.5 mL 06/27/2018 influenza, trivalent, adjuvanted 06/27/2018 pneumococcal conjugate PCV 13 07/11/2017 07/22/2017 pneumococcal polysaccharide PPV23 01/22/2010 08/11/2014 10/11/2014 Tdap 10/11/2007 10/11/2015 Notes: Some vaccines listed in Documents : #[id number], #[id number], #[id number], #[id number], #[id number], #[id number], #[id number], #[id number], #[id number], #[id number], #[id number], #[id number] could not be added to this patient's chart. Please review these documents and add these vaccines to the patient's chart manually as needed. Smoking Status Smoking Status Past Encounters 11/16/2018 Adult Health Examination; Weakness of Right Leg; Peripheral Arterial Occlusive Disease; Body Mass Index 25-29 - Overweight; Renewal of Prescription; Mixed Hyperlipidemia; Essential Hypertension; Moderate Recurrent Major Depression; Type II Diabetes Mellitus Uncontrolled Aleksandr Suggs MD: [address] [facility] [place], [address], [place] [address], Ph. [phone]
--- OUTSIDE RECORDS SUMMARY | 2020-05-01 13:04 | XMS REPORT | Summary of Care ---
Author Author [facility] Address Unknown Phone Unavailable Care Team Providers Care Party Bus Driver Name Role Phone JC PERALTA, DR. 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 (Final) - Discharge Disposition: Home - Attending Physician: JC PERALTA, LEVI MILLER Admitting Physician: LEVI GREENE MD Referring Physician: LEVI GREENE MD Vital Signs No data available for this section Problem List Condition Effective Dates Status Health Status Informan t Diabetes(Confirmed) Active Carotid artery Active disease(Confirmed) Thyroid Active disease(Confirmed) Dyslipidemia(Confirm Active ed) Fall(Confirmed) Active H/O: Active pneumonia(Confirmed) History of Active aorto-femoral bypass(Confirmed) Hx of Active appendectomy(Confirm ed) H/O: CVA Active (cerebrovascular accident)(Confirmed) Pulmonary Active nodule(Confirmed) Superior mesenteric Active artery stenosis(Confirmed) PAD (peripheral Active artery disease)(Confirmed) Emphysema/COPD(Confi Active rmed) 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) Allergies, Adverse Reactions, Alerts Substance Reaction Severity Status lidocaine1 Non-therapeutic response to medications Severe Active 1stated," doesnot work" Medications amLODIPine 10 mg oral tablet 1 TAB, PO, Daily, 0 Refill(s), Indication: High Blood Pressure Start Date: 08/02/18 Status: Ordered aspirin 81 mg oral tablet 1 TAB, PO, Daily, 0 Refill(s), Indication: Clot Prevention Start Date: 08/02/18 Status: Ordered atorvastatin 10 mg oral tablet 1 TAB, PO, Daily, 0 Refill(s) Start Date: 04/12/17 Status: Ordered cilostazol 100 mg oral tablet = 1 TAB, PO, BID (2 times a day), 0 Refill(s), Indication: Unknown Start Date: 08/02/18 Status: Ordered clopidogrel 75 mg oral tablet 1 TAB, PO, Daily, 0 Refill(s), Indication: Clot Prevention Start Date: 08/02/18 Status: Ordered glipiZIDE 5 mg oral tablet 1 TAB, PO, BID (2 times a day), 0 Refill(s), Indication: Diabetes Start Date: 06/24/18 Status: Ordered hydroCHLOROthiazide 12.5 mg oral capsule 1 CAP, PO, Daily, 0 Refill(s), Indication: High Blood Pressure Start Date: 08/02/18 Status: Ordered HYDROmorphone 2 mg oral tablet 1 TAB, PO, Q6H (Every 6 hours), PRN Severe Pain, # 6 TAB, 0 Refill(s), # 6 tabs acute pain exception Start Date: 08/15/18 Stop Date: 08/17/18 Status: Ordered levothyroxine 125 mcg (0.125 mg) oral capsule See Instructions, 0 Refill(s), 1 CAP PO Daily, Indication: Thyroid Disorder Start Date: 08/02/18 Status: Ordered lisinopril 20 mg oral tablet 1 TAB, PO, Daily, 0 Refill(s), Indication: High Blood Pressure Start Date: 08/02/18 Status: Ordered metFORMIN 500 mg oral tablet 1 TAB, PO, BID (2 times a day), 0 Refill(s) Start Date: 06/24/18 Status: Ordered Metoprolol Tartrate 50 mg oral tablet 1 TAB, PO, BID (2 times a day), 0 Refill(s) Start Date: 04/12/17 Status: Ordered nitroglycerin 0.4 mg sublingual tablet 1 TAB, Sublingual, Q5MIN (Every 5 minutes), PRN chest pain, 0 Refill(s) Start Date: 08/02/18 Status: Ordered pantoprazole 40 mg oral delayed release tablet 1 TAB, PO, Daily, 0 Refill(s), Indication: Reflux Start Date: 08/02/18 Status: Ordered Results No data available for this section Immunizations No data available for this section Procedures No data available for this section Social History No data available for this section Functional Status No data available for this section Assessment and Plan No data available for this section Hospital Discharge Instructions No data available for this section
--- OUTSIDE RECORDS SUMMARY | 2020-05-01 13:04 | XMS REPORT ---
Author Organization Unknown Address [address] [place] [address] Phone [phone] Care Team Providers Care Financial Aid Director Name Role Phone Aleksandr Suggs MD 3 [phone] Manpreet Diaz MD 259 [phone] Reason for Visit None recorded. Assessment and Plan The following list includes any diagnoses that were discussed at your visit. 1. Acute hypoxemic respiratory failure 2. Acute urinary tract infection 3. Diastolic dysfunction 4. Cerebrovascular accident 5. Left carotid artery stenosis 6. Solitary nodule of lung 7. Type II diabetes mellitus uncontrolle d OneTouch Delica Lancets 33 gauge metformin 500 mg tablet 8. Hypothyroidism levothyroxine 50 mcg tablet 9. Low back pain oxycodone-acetaminophen 5 mg-325 mg ta blet 10. Renewal of prescription clopidogrel 75 mg tablet Discussion Note: None recorded. Patient educational handouts: No information available. Plan of Care Reminders Provider Appointments Short 08/27/2017 1:30PM Aleksandr mercado MD Lab None recorded. Referral None recorded. Procedures None recorded. Surgeries None recorded. Imaging None recorded. Current Medications Your medical record indicates you are on the following medicine. If this list is not consistentwith the medications you are currently taking, or if you are taki ng additional mznx-ihx-afosvlf medicines, pleaseinform your provider. Name Prescribed Date Start Date Accu-Chek Luci Plus Meter Accu-Chek Luci Plus test strips aspirin 325 mg tablet Take 1 tablet every day by oral route. atorvastatin 10 mg tablet TAKE 1 TABLET BY MOUTH EVERY DAY cefuroxime axetil 500 mg tablet Take 1 tablet every 12 hours by oral route. clopidogrel 75 mg tablet Take 1 tablet every day by oral route. 08/17/2017 diclofenac 3 % topical gel APPLY TO LESION AREAS BY TOPICAL ROUTE 2 TIMES PER DAY 03/31/2016 glipizide 5 mg tablet TAKE 1 TABLET BY MOUTH TWICE DAILY BEFORE MEALS levothyroxine 50 mcg tablet Take 1 tablet every day by oral route. 08/17/2017 losartan 100 mg tablet TAKE 1 TABLET BY MOUTH EVERY DAY metformin 500 mg tablet Take 1 tablet twice a day by oral route. 08/17/2017 metoprolol tartrate 50 mg tablet TAKE 1 TABLET BY MOUTH TWICE DAILY WITH MEALS OneTouch Delica Lancets 33 gauge Use to test blood sugar twice daily before AM and PM meals. OneTouch Ultra2 kit oxycodone-acetaminophen 5 mg-325 mg tabl et Take 1 tablet twice a day by oral route as needed. 08/17/2017 simple diag mis lancing TRUEplus Lancets 28 gauge ultra thin mis 31g Medications Administered None recorded. Vitals Height Weight BMI Blood Pressure Pulse O2 Saturation [place] [facility] Body Surface Area Blood Pressure Cuff Size Pain Scale 5 ft 2.99 in 147 lbs 26 kg/m2 110/66 mm[Hg] 57 bpm 94% 97.7 F 1.72 m adult 9 Lab Results None recorded. Allergies Please review your allergy list for accuracy. Contact your provider if this list needs to be updated. Code Code System Name Reaction Severity Onset 6387 RxNorm Lidocaine NKDA Problems Name Status Onset Date Source Hypothyroidism Active 04/01/2016 Type 2 Diabetes Mellitus without Complication Active Procedures Notes: Procedure: Pleural peel ( Historical import from [employer]) Vaccine List Here is a copy of your most up-to-date vaccination list. Vaccine Type influenza, injectable, quadrivalent 07/12/20170.5 mL influenza, seasonal, injectable 08/06/2014 08/11/2014 07/15/2015 08/10/20160.5 mL pneumococcal conjugate PCV 13 07/11/2017 pneumococcal polysaccharide PPV23 01/22/2010 08/11/2014 10/11/2014 Tdap 10/11/2007 Notes: Some vaccines listed in Documents : #[id number], #[id number], #[id number] could not be added to this patient's chart. Please review these documents and add these vaccines to the patient's chart manually as needed. Smoking Status Smoking Status Past Encounters 08/17/2017 Acute Hypoxemic Respiratory Failure; Acute Urinary Tract Infection; Diastolic Dysfunction; Cerebrovascular Accident; Left Carotid Artery Stenosis; Solitary Nodule of Lung; Type II Diabetes Mellitus Uncontrolled; Hypothyroidism; Low Back Pain; Renewal of Prescription Aleksandr Suggs MD: [address] [place] [address], [address], [place] [address], Ph. [phone]
--- OUTSIDE RECORDS SUMMARY | 2020-05-01 13:04 | XMS REPORT ---
Author Organization Unknown Address [address] [place] [address] Phone [phone] Care Team Providers Care Shoe Singer Name Role Phone Aleksandr Suggs MD 3 [phone] Manpreet Diaz MD 259 [phone] Reason for Visit influenza vaccination Assessment and Plan The following list includes any diagnoses that were discussed at your visit. 1. Influenza vaccination Fluzone Quad [id number] 60 mcg (15 mcg x 4)/0.5 mL IM suspension Discussion Note: None recorded. Patient educational handouts: No information available. Plan of Care Reminders Provider Appointments 08/27/2017 1:30PM Aleksandr mercado MD Lab None recorded. Referral None recorded. Procedures None recorded. Surgeries None recorded. Imaging None recorded. Current Medications Your medical record indicates you are on the following medicine. If this list is not consistentwith the medications you are currently taking, or if you are taki ng additional sqnn-gxa-awcjpqm medicines, pleaseinform your provider. Name Prescribed Date Start Date atorvastatin 10 mg tablet TAKE 1 TABLET BY MOUTH EVERY DAY 02/26/2017 diclofenac 3 % topical gel APPLY TO LESION AREAS BY TOPICAL ROUTE 2 TIMES PER DAY 03/31/2016 glipizide 5 mg tablet TAKE 1 TABLET BY MOUTH TWICE DAILY BEFORE MEALS 02/26/2017 levothyroxine 125 mcg tablet TAKE 1 TABLET BY MOUTH EVERY DAY 02/26/2017 losartan 100 mg tablet TAKE 1 TABLET BY MOUTH EVERY DAY 02/26/2017 metformin 500 mg tablet TAKE 1 TABLET BY MOUTH DAILY 02/26/2017 metoprolol tartrate 50 mg tablet TAKE 1 TABLET BY MOUTH TWICE DAILY WITH MEALS 02/26/2017 OneTouch Ultra Test strips OneTouch Ultra2 kit tramadol 50 mg tablet Take 1 tablet every 6 hours by oral route as needed. 02/26/2017 TRUEplus Lancets 28 gauge Medications Administered None recorded. Vitals None recorded. Lab Results None recorded. Allergies Please review your allergy list for accuracy. Contact your provider if this list needs to be updated. Code Code System Name Reaction Severity Onset NKDA Problems Name Status Onset Date Source Hypothyroidism Active 04/01/2016 Type 2 Diabetes Mellitus without Complication Active Procedures Notes: Procedure: Pleural peel ( Historical import from [employer]) Vaccine List Here is a copy of your most up-to-date vaccination list. Vaccine Type influenza, injectable, quadrivalent 07/12/20170.5 mL(administered) influenza, seasonal, injectable 07/15/2015 08/10/20160.5 mL pneumococcal polysaccharide PPV23 10/11/2014 Notes: Some vaccines listed in Documents : #[id number], #[id number] could not be added to this patient's chart. Please review these documents and add these vaccines to the patient's chart manually as needed. Smoking Status Smoking Status Past Encounters 07/12/2017 Influenza Vaccination Aleksandr Suggs MD: [address] [place] [address], [address], [place] [address], Ph. [phone]
--- OUTSIDE RECORDS SUMMARY | 2020-05-01 13:04 | XMS REPORT | Summary of Care ---
Author Author [facility] Organization [facility] Address Unknown Phone Unavailable Care Team Providers Care Crystal Evaluator Name Role Phone JC PERALTA, DR. Mane SIMS PCP TOAN PERALTA, DR. Omi VELAZCO PCP [phone] UNASSIGNED , PRISCILA PCP Unavailable LAVERN PERALTA, DR. Fahad HAINES PCP Encounter ORM/OCN TORRES Leyva [id number] Date(s): 09/10/17 - 09/10/[address] [address] [place] Discharge Disposition: Home - 01 Attending Physician: LEVI GREENE MD Admitting Physician: LEVI GREENE MD Referring Physician: LEVI GREENE MD Vital Signs No data available for this section Problem List Condition Effective Dates Status Health Status Informan t PAD (peripheral Active artery disease)(Confirmed) Allergies, Adverse Reactions, Alerts Substance Reaction Severity Status lidocaine Active Medications aspirin 325 mg oral delayed release tablet 1 TAB, PO, Daily, # 30 TAB, 0 Refill(s), Indication: Clot Prevention Start Date: 08/14/17 Status: Ordered atorvastatin 10 mg oral tablet 1 TAB, PO, Daily, 0 Refill(s) Start Date: 04/12/17 Status: Ordered clopidogrel 75 mg oral tablet 1 TAB, PO, Daily, # 30 TAB, 0 Refill(s), Indication: Clot Prevention Start Date: 08/14/17 Status: Ordered glipiZIDE 10 mg oral tablet = 1 TAB, PO, BID (2 times a day), # 30 TAB, 0 Refill(s), Indication: Diabetes Start Date: 08/14/17 Status: Ordered levothyroxine 150 mcg (0.15 mg) oral tablet = 1 TAB, PO, Daily, # 30 TAB, 0 Refill(s), Indication: Thyroid Disorder Start Date: 08/14/17 Status: Ordered losartan 100 mg oral tablet = 1 TAB, PO, Daily, 0 Refill(s) Start Date: 04/12/17 Status: Ordered metFORMIN 500 mg oral tablet 1 TAB, PO, BID (2 times a day), # 60 TAB, 0 Refill(s), Indication: Diabetes Start Date: 08/14/17 Status: Ordered Metoprolol Tartrate 50 mg oral tablet 1 TAB, PO, BID (2 times a day), 0 Refill(s) Start Date: 04/12/17 Status: Ordered Results No data available for [...]
--- OUTSIDE RECORDS SUMMARY | 2020-05-01 13:04 | XMS REPORT ---
Author Organization Unknown Address [address] [place] [address] Phone [phone] Care Team Providers Care Exercise Equipment Repair Technician Name Role Phone Aleksandr Suggs MD 3 [phone] Cam Lilly DO 82 [phone] Asha Clemente DPM 120 [phone] Jaquan Christianson MD 130 [phone] Drake Ramos MD 130 [phone] Manpreet Diaz MD 259 [phone] Reason for Visit None recorded. Assessment and Plan The following list includes any diagnoses that were discussed at your visit. 1. Bimalleolar fracture of ankle 2. Peripheral arterial occlusive disease 3. Low blood pressure 4. Major depressive disorder escitalopram 5 mg tablet 5. Anemia Discussion Note: None recorded. Patient educational handouts: No information available. Plan of Care Reminders Provider Appointments Short 20 11/16/2018 11:00AM Aleksandr heart MD Lab None recorded. Referral None recorded. Procedures None recorded. Surgeries None recorded. Imaging None recorded. Current Medications Your medical record indicates you are on the following medicine. If this list is not consistentwith the medications you are currently taking, or if you are taki ng additional pjfn-zgn-xtkkrpz medicines, pleaseinform your provider. Name Prescribed Date [...] 1 tablet every day by oral route. 09/12/2018 Iron (ferrous sulfate) 325 mg (65 mg iro n) tablet Take 1 tablet every day by oral route. 08/29/2018 levothyroxine 125 mcg tablet metformin 500 mg tablet TAKE 1 TABLET BY MOUTH TWICE DAILY mirtazapine 15 mg tablet Take 1 tablet every day by oral route. nitroglycerin 0.4 mg sublingual tablet Dissolve 1 [...] Pressure Cuff Size 5 ft 2.5 in 156/76 mm[Hg] 97 bpm 97% 98.4 F 3 adult Lab Results None recorded. Allergies Please review [...] Procedure: Pleural peel ( Historical import from [employer]) Vaccine List Here is a copy of your most up-to-date vaccination list. Vaccine Type influenza, injectable, quadrivalent 07/12/20170.5 mL influenza, seasonal, injectable 08/06/2014 08/11/2014 07/15/2015 08/10/20160.5 mL 06/27/2018 influenza, trivalent, adjuvanted 06/27/2018 pneumococcal conjugate PCV 13 07/11/2017 07/22/2017 pneumococcal polysaccharide PPV23 01/22/2010 08/11/2014 10/11/2014 Tdap 10/11/2007 10/11/2015 Notes: Some vaccines listed in Documents : #[id number], #[id number], #[id number], #[id number], #[id number], #[id number], #[id number], #[id number], #[id number], #[id number], #[id number] could not be added to this patient's chart. Please review these documents and add these vaccines to the patient's chart manually as needed. Smoking Status Smoking Status Past Encounters 09/12/2018 Bimalleolar Fracture of Ankle; Peripheral Arterial Occlusive Disease; Low Blood Pressure; Major Depressive Disorder; Anemia Aleksandr Suggs MD: [address] [place] [address], [address] [address], Ph. [phone] 08/22/2018 Bimalleolar Fracture of Ankle; Peripheral Arterial Occlusive Disease; Low Blood Pressure; Major Depressive Disorder; Anemia Aleksandr Suggs MD: [address] [place] [address], [address] [address], Ph. [phone]
--- OUTSIDE RECORDS SUMMARY | 2020-05-01 13:04 | XMS REPORT ---
Author Organization Unknown Address [address] [place] [address] Phone [phone] Care Team Providers Care Cap Coverer Name Role Phone Aleksandr Suggs MD 3 [phone] Cam Lilly DO 82 [phone] Asha Clemente DPM 120 [phone] Jaquan Christianson MD 130 [phone] Drake Rmaos MD 130 [phone] Manpreet Diaz MD 259 [phone] Reason for Visit None recorded. Assessment and Plan The following list includes any diagnoses that were discussed at your visit. 1. Moderate recurrent major depression 2. Essential hypertension 3. Hyperlipidemia CMP, serum or plasma lipid panel, serum 4. Type II diabetes mellitus uncontrolle d HbA1c (hemoglobin A1c), blood 5. Hypothyroidism TSH, serum or plasma T4, free, serum 6. Recurrent falls 7. Muscle weakness 8. Renewal of prescription atorvastatin 10 mg tablet clopidogrel 75 mg tablet escitalopram 5 mg tablet glipizide 5 mg tablet levothyroxine 125 mcg tablet losartan 100 mg tablet metformin 500 mg tablet metoprolol tartrate 50 mg tablet pantoprazole 40 mg tablet,delayed rele ase Discussion Note: None recorded. Patient educational handouts: No information available. Plan of Care Reminders Provider Appointments Short 20 12/04/2019 1:40PM Aleksandr mercado MD Lab HbA1C (Hemoglobin a1C), Blood 11/11/2019 [facility] CMP, Serum or Plasma 11/11/2019 [facility] Lipid Panel, Serum 11/11/2019 [facility] TSH, Serum or Plasma 11/11/2019 [facility] T4, Free, Serum 11/11/2019 [facility] Referral None recorded. Procedures None recorded. Surgeries None recorded. Imaging None recorded. Current Medications Your medical record indicates you are on the following medicine. If this list is not consistentwith the medications you are currently taking, or if you are taki ng additional bkkq-kem-fxzzckw medicines, pleaseinform your provider. Name Prescribed Date Start Date Aspir-81 mg tablet,delayed release Take 1 tablet every day by oral route. 07/19/2018 atorvastatin 10 mg tablet TAKE 1 TABLET BY MOUTH EVERY DAY 08/31/2019 clopidogrel 75 mg tablet TAKE 1 TABLET BY MOUTH EVERY DAY 08/31/2019 escitalopram 5 mg tablet TAKE 1 TABLET BY MOUTH EVERY DAY 08/31/2019 glipizide 5 mg tablet TAKE 1 TABLET BY MOUTH TWICE DAILY BEFORE MEALS 08/31/2019 levothyroxine 125 mcg tablet TAKE 1 TABLET BY MOUTH EVERY DAY 08/31/2019 losartan 100 mg tablet TAKE 1 TABLET BY MOUTH EVERY DAY 08/31/2019 metformin 500 mg tablet TAKE 1 TABLET BY MOUTH TWICE DAILY 08/31/2019 metoprolol tartrate 50 mg tablet TAKE 1 TABLET BY MOUTH EVERY DAY 08/31/2019 nitroglycerin 0.4 mg sublingual tablet Dissolve 1 tablet every 5 minutes for 3 doses as needed for chest pain OneTouch Delica Lancets 33 gauge USE TO CHECK BLOOD GLUCOSE TWICE DAILY BEFORE MEALS OneTouch Ultra2 Meter kit pantoprazole 40 mg tablet,delayed releas e TAKE 1 TABLET BY MOUTH EVERY DAY 08/31/2019 simple diag mis lancing TRUEplus Lancets 28 gauge ultra thin mis 31g Medications Administered None recorded. Vitals Height Weight BMI Blood Pressure Pulse O2 Saturation [place] rature Respiration Rate Pain Scale Type Blood Pressure Cuff Size Pain Scale 5 ft 2.5 in Not Performed - Patient refused kg/m2 120/70 mm[Hg] 68 bpm 96% Room Air at Rest 98 F oral 16 Numeri c adult 6 Results Lab Results None recorded. [...] Procedure: Pleural peel ( Historical import from [employer]) Vaccine List Here is a copy of your most up-to-date vaccination list. Vaccine Type influenza, injectable, quadrivalent 07/12/20170.5 mL influenza, seasonal, injectable 08/06/2014 08/11/2014 07/15/2015 08/10/20160.5 mL 06/27/2018 influenza, trivalent, adjuvanted 06/27/2018 pneumococcal conjugate PCV 13 07/11/2017 07/22/2017 pneumococcal polysaccharide PPV23 01/22/2010 08/11/2014 10/11/2014 Tdap 10/11/2007 10/11/2015 Notes: Some vaccines listed in Documents : #[id number], #[id number], #[id number], #[id number], #[id number], #[id number], #[id number], #[id number], #[id number], #[id number], #[id number], #[id number], #[id number], #[id number], #[id number], #[id number] could not be added to this patient's chart. Please review these documents and add these vaccines to the patient's chart manually as needed. Tobacco Smoking Status Tobacco Smoking Status Past Encounters 08/31/2019 Moderate Recurrent Major Depression; Essential Hypertension; Hyperlipidemia; Type II Diabetes Mellitus Uncontrolled; Hypothyroidism; Recurrent Falls; Muscle Weakness; Renewal of Prescription Aleksandr Suggs MD: [address] [place] [address], [address], [place] [address], Ph. [phone]
--- OUTSIDE RECORDS SUMMARY | 2020-05-01 13:04 | XMS REPORT ---
Author Organization Unknown Address [address] [place] [address] Phone [phone] Care Team Providers Care Surfacing Machine Operator Name Role Phone Aleksandr Suggs MD 3 [phone] Reason for Visit lab follow-up Assessment and Plan The following list includes any diagnoses that were discussed at your visit. 1. Type II diabetes mellitus uncontrolle d HbA1c (hemoglobin A1c), blood 2. Hyperlipidemia CMP, serum or plasma lipid panel, blood 3. Hypothyroidism TSH + free T4, serum 4. Essential hypertension 5. Claudication (LUANNE) ankle brachial index tramadol 50 mg tablet 6. Acquired trigger finger 7. Positional vertigo physical therapy referral 8. Renewal of prescription atorvastatin 10 mg tablet glipizide 5 mg tablet levothyroxine 125 mcg tablet losartan 100 mg tablet metformin 500 mg tablet metoprolol tartrate 50 mg tablet Discussion Note: None recorded. Patient educational handouts: No information available. Plan of Care Reminders Provider Appointments Short 08/27/2017 1:30PM Aleksandr mercado MD Lab TSH + Free T4, Serum 03/22/2017 [facility] CMP, Serum or Plasma 03/22/2017 [facility] Lipid Panel, Blood 03/22/2017 [facility] HbA1C (Hemoglobin a1C), Blood 03/22/2017 [facility] Referral Physical Therapy Referral 02/26/2017 [facility] Procedures None recorded. Surgeries None recorded. Imaging None recorded. Current Medications Your medical record indicates you are on the following medicine. If this list is not consistentwith the medications you are currently taking, or if you are taki ng additional iudd-xck-zxfdeex medicines, pleaseinform your provider. Name Prescribed Date [...] 28 gauge Medications Administered None recorded. Vitals Height Weight BMI Blood Pressure Pulse O2 Saturation [place] [facility] Body Surface Area Blood Pressure Cuff Size Pain Scale 5 ft 2.99 in 154 lbs 3.2 oz 27.3 142/84 71 bpm 9 8% 97.6 F 1.76 m adult 5 Lab Results None recorded. Allergies Please review your allergy list for accuracy. Contact your provider if this list needs to be updated. Code Code System Name Reaction Severity Onset NKDA Problems Name Status Onset Date Source Hypothyroidism Active 04/01/2016 Type 2 Diabetes Mellitus without Complication Active Procedures Notes: Procedure: Pleural peel ( Historical import from [employer]) Vaccine List Here is a copy of your most up-to-date vaccination list. Vaccine Type influenza, seasonal, injectable 07/14/2015 08/10/20160.5 mL Notes: Some vaccines listed in Documents : #[id number], #[id number] could not be added to this patient's chart. Please review these documents and add these vaccines to the patient's chart manually as needed. Smoking Status Smoking Status Past Encounters 02/26/2017 Type II Diabetes Mellitus Uncontrolled; Hyperlipidemia; Hypothyroidism; Essential Hypertension; Claudication; Acquired Trigger Finger; Positional Vertigo; Renewal of Prescription Aleksandr Suggs MD: [address] [facility], [address], [place] [address], Ph. [phone]
--- OUTSIDE RECORDS SUMMARY | 2020-05-01 13:04 | XMS REPORT | Summary of Care ---
Author Author [facility] Organization [facility] Address Unknown Phone Unavailable Care Team Providers Care Spouting Installer Name Role Phone JC PERALTA, DR. Mane SIMS PCP TOAN PERALTA, DR. Omi VELAZCO PCP [phone] UNASSIGNED , PRISCILA PCP Unavailable LAVERN PERALTA, DR. Fahad HAINES PCP Encounter ORM/OCN TORRES Leyva [id number] Date(s): 08/27/17 - 08/27/[address] [address] [place] Discharge Disposition: Home - 01 Attending [...]
--- OUTSIDE RECORDS SUMMARY | 2020-05-01 13:04 | XMS REPORT ---
Author Organization Unknown Address [address] [place] [address] Phone [phone] Care Team Providers Care Roller Coaster Designer Name Role Phone Aleksandr Suggs MD 3 [phone] Levyjoo Lilly DO 82 [phone] Asha Clemente DPM 120 [phone] Jaquan Christianson MD 130 [phone] Drake Ramos MD 130 [phone] Manpreet Diaz MD 259 [phone] Reason for Visit sinus symptoms Assessment and Plan The following list includes any diagnoses that were discussed at your visit. 1. Hypothyroidism TSH + free T4, serum levothyroxine 125 mcg tablet 2. Hyperlipidemia lipid panel, blood CMP, serum or plasma 3. Type 2 diabetes mellitus without comp lication HbA1c (hemoglobin A1c), blood 4. Hip pain XR, hip, unilateral diclofenac 3 % topical gel 5. Pain in right knee unlisted imaging order - xr knee 3V RT Discussion Note: None recorded. Patient educational handouts: No information available. Plan of Care Reminders Provider Appointments Short 20 11/16/2018 11:00AM Aleksandr heart MD Lab TSH + Free T4, Serum 09/22/2016 [facility] Lipid Panel, Blood 09/22/2016 [facility] CMP, Serum or Plasma 09/22/2016 [facility] HbA1C (Hemoglobin a1C), Blood 09/22/2016 [facility] Referral None recorded. Procedures None recorded. Surgeries None recorded. Imaging XR, Hip, Unilateral 03/31/2016 Unlisted Imaging Order 03/31/2016 [facility]) Current Medications Your medical record indicates you are on the following medicine. If this list is not consistentwith the medications you are currently taking, or if you are taki ng additional qgqe-dhl-hjztwdi medicines, pleaseinform your provider. Name Prescribed Date [...] BMI Blood Pressure Pulse O2 Saturation [facility] Body Surface Area Blood Pressure Cuff Size Pain Scale 5 ft 2.99 in 150 lbs 12.8 oz 26.7 kg/m2 146/62 mm[Hg] 67 bpm 97% 97.6 F 1.74 m adult 6 Lab Results Date Name Specimen Result Interpretation Description Value Range Status Address 08/30/2018 GFR, Estimated (eGFR), Serum BLOOD GFR (CKD-epi) 88.0 mL/min/1.73 m2 Final [facility] ([facility]): [place] 08/30/2018 CMP, Serum or Plasma BLOOD Sodium 145 mmo l/L 136-145 mmol/L Final [facility] ([facility]) : [place] BLOOD Potassium 4.5 mmol/L 3.5-5.1 mmol/L Final [facility] ([facility]): [place] BLOOD Chloride 106 mmol/L 98-107 mmol/L [facility] ([facility]): [place] BLOOD Co2 25 mmol/L 22-29 mmol/L Final [facility] ([facility]): [place] BLOOD Glucose 94 mg/dL 70-99 mg/dL Final [facility] ([facility]): [place] BLOOD Bun 13 mg/dL 8-23 mg/dL Final [facility] ([facility]): [place] BLOOD Creatinine 0.63 mg/dL 0.50-0.90 mg/d L Final [facility] ([facility]): [place] BLOOD Calcium 9.5 mg/dL 8.8-10.2 mg/dL Fin al [facility] ([facility]): [place] BLOOD Total Protein 6.8 g/dL 6.4-8.3 g/dL Final [facility] ([facility]): [place] BLOOD Albumin Level 3.9 g/dL 3.5-5.2 g/dL Final [facility] ([facility]): [place] BLOOD Bili Total 0.4 mg/dL <=1.0 mg/dL Fin al [facility] ([facility]): [place] BLOOD Alk Phos 83 units/L 35-105 units/L F inal [facility] ([facility]): [place] BLOOD Ast 20 units/L 10-33 units/L Final [facility] ([facility]): [place] BLOOD ALT(SGPT) 11 units/L 10-33 units/L F inal [facility] ([facility]): [place] BLOOD Agap 14 3-20 Final [facility] ([facility]): [place] 08/30/2018 Wbc Diff, Auto, Blood BLOOD Neutrophils 6 3.1 % 42.7-77.1 % Final [facility] ([facility]) : [place] BLOOD Lymphs 26.0 % 12.1-45.3 % Final [facility] ([facility]): [place] BLOOD Monocytes % 6.9 % 4.4-12.5 % Final [facility] ([facility]): [place] BLOOD Eosinophil % 3.0 % 0.0-5.6 % Final [facility] ([facility]): [place] BLOOD Basophil % 0.4 % 0.0-1.0 % Final [facility] ([facility]): [place] BLOOD Immature Granulocytes % 0.6 % 0.0-1 .0 % Final [facility] ([facility]): [place] BLOOD Neutro Absolute 3.2 x10'3/microL 1.4 -6.8 x10'3/microL Final [facility] ([facility]): [place] BLOOD Lymph Absolute 1.3 x10'3/microL 0.6- 3.2 x10'3/microL Final [facility] ([facility]): [place] BLOOD [place] Absolute 0.4 x10'3/microL 0.2-0 .9 x10'3/microL Final [facility] ([facility]): [place] BLOOD Eos Absolute 0.2 x10'3/microL 0.0-0. 6 x10'3/microL Final [facility] ([facility]): [place] BLOOD Basophil Absolute 0.0 x10'3/microL 0.0-0.1 x10'3/microL Final [facility] ([facility]): [place] BLOOD Immature Granulocytes Abs 0.03 x10'3/microL 0.01-0.03 x10'3/microL Final [facility] ([facility]): [place] 08/30/2018 CBC W/ Diff BLOOD Low Wbc 5.0 x10'3/microL 5.4-10.8 x10'3/microL Final [facility] ([facility]) : [place] BLOOD Low Rbc 3.56 x10'6/microL 3.79-5.19 x10 '6/microL Final [facility] ([facility]): [place] BLOOD Low Hgb 9.9 g/dL 11.2-15.7 g/dL Final [facility] ([facility]): [place] BLOOD Low Hct 33.8 % 34.1-44.9 % Final [facility] ([facility]): [place] BLOOD Mcv 94.9 fL 83.7-99.[address] [facility] ([facility]): [place] BLOOD Mch 27.8 pg 27.6-33.[address] [facility] ([facility]): [place] BLOOD Low Mchc 29.3 g/dL 31.3-34.9 g/dL Final [facility] ([facility]): [place] BLOOD Rdw 49.2 fL 38.6-50.2 fL Final [facility] ([facility]): [place] BLOOD Platelet 276 x10'3/microL 126-432 x1 0'3/microL Final [facility] ([facility]): [place] BLOOD Mpv 10.0 fL 9.2-12.2 fL Final [facility] ([facility]): [place] BLOOD Nrbc 0.0 /100WBC 0.0-0.2 /100WBC Fin al [facility] ([facility]): [place] BLOOD Abs Nrbcs 0.00 x10'3/microL 0.00-0.0 1 x10'3/microL Final [facility] ([facility]): [place] 04/26/2018 HbA1C (Hemoglobin a1C), Blood A1C 7.5 04/26/2018 HbA1C (Hemoglobin a1C), Blood No observat ion recorded. [facility]: [address], [place] 04/26/2018 T4, Free, Serum No observation recorded. [facility]: [address], [place] 04/26/2018 TSH, Serum or Plasma No observation recor ded. [facility]: [address], [place] 04/26/2018 CBC W/ Diff No observation recorded. [facility]: [address], [place] 04/26/2018 Lipid Panel, Blood No observation recorde d. [facility]: [address], [place] 04/26/2018 CMP, Serum or Plasma No observation recor ded. [facility]: [address], [place] 11/26/2017 HbA1C (Hemoglobin a1C), Blood No observat ion recorded. [facility]: [address], [place] 11/26/2017 T4, Free, Serum No observation recorded. [facility]: [address], [place] 11/26/2017 TSH, Serum or Plasma No observation recor ded. [facility]: [address], [place] 11/26/2017 CBC W/ Diff No observation recorded. [facility]: [address], [place] 11/26/2017 Lipid Panel, Blood No observation recorde d. [facility]: [address], [place] 11/26/2017 CMP, Serum or Plasma No observation recor ded. [facility]: [address], [place] 02/15/2017 HbA1C (Hemoglobin a1C), Blood A1C 8.2 02/15/2017 HbA1C (Hemoglobin a1C), Blood No observat ion recorded. [facility]: [address], [place] 02/15/2017 TSH + Free T4, Serum No observation recor ded. [facility]: [address], [place] 02/15/2017 Lipid Panel, Blood No observation recorde d. [facility]: [address], [place] 02/15/2017 CMP, Serum or Plasma No observation recor ded. [facility]: [address], [place] 09/22/2016 HbA1C (Hemoglobin a1C), Blood No observat ion recorded. [facility]: [address], [place] 09/22/2016 TSH + Free T4, Serum No observation recor ded. [facility]: [address], [place] 09/22/2016 Lipid Panel, Blood No observation recorde d. [facility]: [address], [place] 09/22/2016 CMP, Serum or Plasma No observation recor ded. [facility]: [address] [place] Allergies Please review your allergy list for [...] available 10/11/2013 Colonoscopy Information not avai lable 03/31/2016 XR, Hip, Unilateral Information not avai lable 03/31/2016 Unlisted Imaging Order [facility] ([facility]) [address] [place] [address] (Work Place) Notes: Procedure: Pleural peel ( Historical import from [employer]) Vaccine List Here is a copy of your most up-to-date vaccination list. Vaccine Type influenza, injectable, quadrivalent 07/12/20170.5 mL influenza, seasonal, injectable 08/06/2014 08/11/2014 07/15/2015 08/10/20160.5 mL 06/27/2018 influenza, trivalent, adjuvanted 06/27/2018 pneumococcal conjugate PCV 13 07/11/2017 07/22/2017 pneumococcal polysaccharide PPV23 01/22/2010 08/11/2014 10/11/2014 Tdap 10/11/2007 10/11/2015 Notes: Some vaccines listed in Documents : #[id number], #[id number], #[id number], #[id number], #[id number], #[id number], #[id number], #[id number], #[id number], #[id number], #[id number] could not be added to this patient's chart. Please review these documents and add these vaccines to the patient's chart manually as needed. Smoking Status Smoking Status Past Encounters 09/12/2018 Bimalleolar Fracture of Ankle; Peripheral Arterial Occlusive Disease; Low Blood Pressure; Major Depressive Disorder; Anemia Aleksandr Suggs MD: [address] [facility], [address], [place] [address], Ph. [phone] 08/22/2018 Bimalleolar Fracture of Ankle; Peripheral Arterial Occlusive Disease; Low Blood Pressure; Major Depressive Disorder; Anemia Aleksandr Suggs MD: [address] [place] [address], [address], [place] [address], Ph. [phone] 07/21/2018 Angina Pectoris; Peripheral Vascular Disease; Essential Hypertension; Hypothyroidism; Body Mass Index 25-29 - Overweight Aleksandr Suggs MD: [address] [place] [address], [address], [place] [address], Ph. [phone] 05/10/2018 Type II Diabetes Mellitus Uncontrolled; Hyperlipidemia; Hypothyroidism; Essential Hypertension; Claudication; Peripheral Arterial Occlusive Disease; Body Mass Index 25-29 - Overweight Aleksandr Suggs MD: [address] [place] [address], [address] [address], Ph. [phone] 01/04/2018 Acute Sinusitis; Esophagitis Aleksandr Suggs MD: [address] [place] [address], [address], [place] [address], Ph. [phone] 11/25/2017 Type II Diabetes Mellitus Uncontrolled; Hypothyroidism; Mixed Hyperlipidemia; Peripheral Arterial Occlusive Disease; Essential Hypertension; Memory Impairment Aleksandr Suggs MD: [address] [place] [address], [address] [address], Ph. [phone] 10/14/2017 Renal Mass; Type II Diabetes Mellitus Uncontrolled; Hyperlipidemia; Hypothyroidism; Fatigue Aleksandr Suggs MD: [address] [place] [address], [address] [address], Ph. [phone] 08/27/2017 Acute Pyelonephritis; Fever; Fatigue; Metabolic Encephalopathy Aleksandr Suggs MD: [address] [place] [address], [address] [address], Ph. [phone] 08/17/2017 Acute Hypoxemic Respiratory Failure; Acute Urinary Tract Infection; Diastolic Dysfunction; Cerebrovascular Accident; Left Carotid Artery Stenosis; Solitary Nodule of Lung; Type II Diabetes Mellitus Uncontrolled; Hypothyroidism; Low Back Pain; Renewal of Prescription Aleksandr Suggs MD: [address] [place] [address], [address], [place] [address], Ph. [phone] 07/12/2017 Influenza Vaccination Aleksandr Suggs MD: [address] [place] [address], [address], [place] [address], Ph. [phone] 02/26/2017 Type II Diabetes Mellitus Uncontrolled; Hyperlipidemia; Hypothyroidism; Essential Hypertension; Claudication; Acquired Trigger Finger; Positional Vertigo; Renewal of Prescription Aleksandr Suggs MD: [address] [facility] [address], [address], [place] [address], Ph. [phone] 11/17/2016 Benign Essential Hypertension; Type II Diabetes Mellitus Uncontrolled; Peripheral Arterial Occlusive Disease; Pain in Lower Limb Aleksandr Suggs MD: [address] [place], [place] [address]y, [address], [place] [address], Ph. [phone] 09/28/2016 Type 2 Diabetes Mellitus without Complication; Hypothyroidism; Hyperlipidemia; Essential Hypertension; Pain in Right Knee Aleksandr Suggs MD: [address] [place], [place] [address]y, [address], [place] [address], Ph. [phone] 08/05/2016 Influenza Vaccination Aleksandr Suggs MD: [address] [place], [place] [address]y, [address], [place] [address], Ph. [phone] 03/31/2016 Hypothyroidism; Hyperlipidemia; Type 2 Diabetes Mellitus without Complication; Hip Pain; Pain in Right Knee Aleksandr Suggs MD: [address] [place], [place] [address]y, [address], [place] [address], Ph. [phone]
--- OUTSIDE RECORDS SUMMARY | 2020-05-01 13:04 | XMS REPORT ---
Author Organization Unknown Address [address] [place] [address] Phone [phone] Reason for Visit None recorded. Assessment and Plan The following list includes any diagnoses that were discussed at your visit. 1. Benign essential hypertension 2. Type II diabetes mellitus uncontrolle d 3. Peripheral arterial occlusive disease 4. Pain in lower limb (LUANNE) ankle brachial index Discussion Note: None recorded. Patient educational handouts: No information available. Plan of Care Reminders Provider Appointments 01/08/2017 1:00PM Aleksandr mercado MD Lab None recorded. Referral None recorded. Procedures None recorded. Surgeries None recorded. Imaging None recorded. Current Medications Your medical record indicates you are on the following medicine. If this list is not consistentwith the medications you are currently taking, or if you are taki ng additional ycaf-ehk-lqqxguc medicines, pleaseinform your provider. Name Prescribed Date [...] TAKE 1 TABLET BY MOUTH EVERY DAY metoprolol tartrate 50 mg tablet TAKE 1 TABLET BY MOUTH TWICE DAILY WITH MEALS OneTouch Ultra Test strips OneTouch Ultra2 kit [employer]plus Lancets 28 gauge Medications Administered None recorded. Vitals Height Weight BMI Blood Pressure 5 ft 2.99 in 152 lbs 12.8 oz 27.1 138/78 Body Surface Area Pulse O2 Saturation Temperature 1.76 m 71 bpm 96% 97.7 F Blood Pressure Cuff Size Pain Scale adult 8 Lab Results None recorded. Allergies Please review your allergy list for accuracy. Contact your provider if this list needs to be updated. Name Reaction Severity Onset NKDA Problems Name Status Onset Date Source Hypothyroidism Active 04/01/2016 Type 2 Diabetes Mellitus without Complication Active Procedures Notes: Procedure: Pleural peel ( Historical import from [employer]) Vaccine List Here is a copy of your most up-to-date vaccination list. Vaccine Type influenza, seasonal, injectable 07/14/2015 08/10/20160.5 mL Notes: Some vaccines listed in Documents : #[id number], #[id number] could not be added to this patient's chart. Please review these documents and add these vaccines to the patient's chart manually as needed. Smoking Status Smoking Status (1 PPD) Past Encounters 11/17/2016 Benign Essential Hypertension; Type II Diabetes Mellitus Uncontrolled; Peripheral Arterial Occlusive Disease; Pain in Lower Limb Aleksandr Suggs MD: [address] [facility], [address], [place] [address], Ph. [phone]
--- OUTSIDE RECORDS SUMMARY | 2020-05-01 13:04 | XMS REPORT | Summary of Care ---
Author Author [facility] Address Unknown Phone Unavailable Care Team Providers Care Survey Technologist Name Role Phone JC PERALTA, DR. ANGELA SIMS PCP Encounter ORM/OCN TORRES Leyva [id number] Date(s): 11/16/18 - 11/16/[address] [address]- Discharge Disposition: Home - Attending Physician: JC PERALTA, LEVI MILLER Admitting Physician: LEVI GREENE MD Referring Physician: JC PERALTA, LEVI MILLER Vital Signs No data available for this [...]
--- OUTSIDE RECORDS SUMMARY | 2020-05-01 13:04 | XMS REPORT | Summary of Care ---
Author Author [facility] Organization [facility] Address Unknown Phone Unavailable Care Team Providers Care Armature Connector Name Role Phone JC PERALTA, DR. Mane SIMS PCP TOAN PERALTA, DR. Omi VELAZCO PCP [phone] UNASSIGNED , PRISCILA PCP Unavailable LAVERN PERALTA, DR. Fahad HAINES PCP Encounter ORM/OCN TORRES Leyva [id number] Date(s): 11/08/17 - 11/08/[address] [address] [place] Discharge Disposition: Home - Attending Physician: FARIDA ARIAS DPM Admitting Physician: FARIDA ARIAS DPM Referring Physician: FARIDA ARIAS DPM Vital Signs No data available for this [...]
--- OUTSIDE RECORDS SUMMARY | 2020-05-01 13:04 | XMS REPORT | Summary of Care ---
Author Author [facility] Address Unknown Phone Unavailable Care Team Providers Care Dietitian Name Role Phone JC PERALTA, DR. ANGELA SIMS PCP Encounter ORM/OCN TORRES Leyva [id number] Date(s): 01/27/20 - 01/27/[address] [address]- Encounter Diagnosis Closed head injury (Discharge Diagnosis) - 01/27/20 Fracture of two ribs of left side (Discharge Diagnosis) - 01/27/20 Discharge Disposition: Home - Attending Physician: JOVANNI BOONE MD Admitting Physician: JOVANNI BOONE MD Vital Signs Most recent to 1 oldest [Reference Range]: Vital Signs Routine Assessment Status/Type (01/27/20 9:30 PM) Temperature 97.9 DegF [96.8-99.7 DegF] (01/27/20 8:13 PM) Temp Method Oral (01/27/20 8:13 PM) Heart Rate 67 bpm (01/27/20 9:58 PM) Respiratory Rate 16 br/min [15-20 br/min] (01/27/20 8:13 PM) Blood Pressure 217/53 mmHg [90-180/50-90 mmHg] *HI* (01/27/20 9:58 PM) NIBP MAP [65 mmHg] 98 mmHg (01/27/20 9:58 PM) NIBP MAP Calc [65 108 mmHg mmHg] (01/27/20 9:58 PM) Problem List Condition Effective Dates Status Health [...] 08/02/18 Status: Ordered aspirin 81 mg oral delayed release tablet 1 TAB, PO, Daily, 0 Refill(s) Start Date: 04/27/19 Status: Ordered atorvastatin 10 mg oral tablet [...] Blood Pressure Start Date: 08/02/18 Status: Ordered levothyroxine 125 mcg (0.125 mg) oral capsule See Instructions, 0 Refill(s), 1 CAP PO Daily, Indication: Thyroid Disorder Start Date: 08/02/18 Status: Ordered lisinopril 20 mg oral tablet 1 TAB, PO, Daily, 0 Refill(s), Indication: High Blood Pressure Start Date: 08/02/18 Status: Ordered Metoprolol Tartrate 50 mg oral tablet 1 TAB, PO, BID (2 times a day), 0 Refill(s) Start Date: 04/12/17 Status: Ordered nitroglycerin 0.4 mg sublingual tablet 1 TAB, Sublingual, Q5MIN (Every 5 minutes), PRN chest pain, 0 Refill(s) Start Date: 08/02/18 Status: Ordered [place] 5 mg-325 mg oral tablet 1 TAB, PO, Q6H (Every 6 hours), PRN as needed for pain, x 3 day, # 10 TAB, 0 Ref ill(s), Indication: Breakthrough Pain, FOR ACUTE PAIN Start Date: 01/27/20 Stop Date: 01/30/20 Status: Ordered pantoprazole 40 mg oral delayed [...]
--- OUTSIDE RECORDS SUMMARY | 2020-05-01 13:04 | XMS REPORT ---
Author Organization Unknown Address [address] [place] [address] Phone [phone] Reason for Visit lab follow-up; hyperlipidemia Assessment and Plan The following list includes any diagnoses that were discussed at your visit. 1. Type 2 diabetes mellitus without comp lication HbA1c (hemoglobin A1c), blood 2. Hypothyroidism TSH + free T4, serum 3. Hyperlipidemia CMP, serum or plasma lipid panel, blood 4. Essential hypertension 5. Pain in right knee Discussion Note: None recorded. Patient educational handouts: No information available. Plan of Care Reminders Provider Appointments Short 12/28/2016 11:30AM Aleksandr heart MD Lab HbA1C (Hemoglobin a1C), Blood 12/20/2016 [facility] TSH + Free T4, Serum 12/20/2016 [facility] CMP, Serum or Plasma 12/20/2016 [facility] Lipid Panel, Blood 12/20/2016 [facility] Referral None recorded. Procedures None recorded. Surgeries None recorded. Imaging None recorded. Current Medications Your medical record indicates you are on the following medicine. If this list is not consistentwith the medications you are currently taking, or if you are taki ng additional pyby-ijw-gpawuxk medicines, pleaseinform your provider. Name Prescribed Date Start Date atorvastatin 10 mg tablet TAKE 1 TABLET BY MOUTH EVERY DAY diclofenac 3 % topical gel APPLY TO LESION AREAS BY TOPICAL ROUTE 2 TIMES PER DAY 03/31/2016 glipizide 5 mg tablet TAKE 1 TABLET BY MOUTH TWICE DAILY BEFORE MEALS Invokamet 150 mg-500 mg tablet Take 1 tablet every day by oral route. levothyroxine 125 mcg tablet TAKE 1 TABLET BY MOUTH EVERY DAY 09/21/2016 losartan 100 mg tablet TAKE 1 TABLET BY MOUTH EVERY DAY metoprolol tartrate 50 mg tablet TAKE 1 TABLET BY MOUTH TWICE DAILY WITH MEALS OneTouch Ultra Test strips OneTouch Ultra2 kit [employer] Lancets 28 gauge Medications Administered None recorded. Vitals Height Weight BMI Blood Pressure 5 ft 2.99 in 149 lbs 9.6 oz 26.5 138/70 Body Surface Area Pulse O2 Saturation Temperature 1.74 m 65 bpm 97% 97.8 F Blood Pressure Cuff Size Pain Scale adult 5 Lab Results None recorded. Allergies Please review your allergy list for accuracy. Contact your provider if this list needs to be updated. Name Reaction Severity Onset NKDA Problems Name Status Onset Date Source Hypothyroidism Active 04/01/2016 Type 2 Diabetes Mellitus without Complication Active Procedures Notes: Procedure: Pleural peel ( Historical import from [employer]) Vaccine List Here is a copy of your most up-to-date vaccination list. Vaccine Type influenza, seasonal, injectable 07/14/2015 08/10/20160.5 mL Notes: Some vaccines listed in Document: #[id number] could not be added to this patient's chart. Please review this document and add these vaccines to the patient's chart manually as needed. Smoking Status Smoking Status (1 PPD) Past Encounters 09/28/2016 Type 2 Diabetes Mellitus without Complication; Hypothyroidism; Hyperlipidemia; Essential Hypertension; Pain in Right Knee Aleksandr Suggs MD: [address] [facility], [address], [place] [address], Ph. [phone]
--- OUTSIDE RECORDS SUMMARY | 2020-05-01 13:04 | XMS REPORT | Summary of Care ---
Author Author [facility] Organization [facility] Address Unknown Phone Unavailable Care Team Providers Care Services Tech Name Role Phone JC PERALTA, DR. Mane SIMS PCP TOAN PERALTA, DR. Omi VELAZCO PCP [phone] UNASSIGNED , PRISCILA PCP Unavailable LAVERN PERALTA, DR. Fahad HAINES PCP Encounter ORM/OCN TORRES Leyva [id number] Date(s): 10/21/17 - 10/21/[address] [address] [place] Discharge Disposition: Home - Attending Physician: LEVI GREENE MD Admitting Physician: [...]
--- OUTSIDE RECORDS SUMMARY | 2020-05-01 13:05 | XMS REPORT | Summary of Care ---
Author Author [facility] Organization [facility] Address Unknown Phone Unavailable Care Team Providers Care Road Mixer Operator Name Role Phone JC PERALTA, DR. ANGELA SIMS PCP TOAN PERALTA, DR. Omi VELAZCO PCP [phone] UNASSIGNED MD, TEMP PCP Unavailable LAVERN PERALTA, DR. Fahad HAINES PCP Encounter ORM/OCN TORRES Leyva [id number] Date(s): 06/24/18 - 06/24/[address] [address]- Discharge Disposition: Home - Attending Physician: FRANCESCA PERALTA, RICHELLE MENSAH Admitting Physician: RICHELLE MA MD Referring Physician: TODD PADRON MD Vital Signs Most recent to 1 oldest [Reference Range]: Vital Signs Pre Procedure Status/Type (06/24/18 6:35 AM) Temperature 98.6 DegF [96.8-99.7 DegF] (06/24/18 6:35 AM) Temp Method Oral (06/24/18 6:35 AM) Heart Rate 71 bpm (06/24/18 4:30 PM) Respiratory Rate 20 br/min [15-20 br/min] (06/24/18 4:30 PM) Blood Pressure 183/52 mmHg [90-180/50-90 mmHg] *HI* (06/24/18 4:00 PM) NIBP MAP 91 mmHg (06/24/18 4:00 PM) NIBP MAP Calc 96 (06/24/18 4:00 PM) Problem List Condition Effective Dates Status Health Status Informan t PAD (peripheral Active artery disease)(Confirmed) Allergies, Adverse Reactions, Alerts Substance Reaction Severity Status lidocaine Active Medications atorvastatin 10 mg oral tablet 1 TAB, PO, Daily, 0 Refill(s) Start Date: 04/12/17 Status: Ordered glipiZIDE 5 mg oral tablet 1 TAB, PO, Daily, 0 Refill(s) Start Date: 06/24/18 Status: Ordered levothyroxine 137 mcg (0.137 mg) oral capsule = 1 CAP, PO, Daily, 0 Refill(s) Start Date: 06/24/18 Status: Ordered losartan 100 mg oral tablet = 1 TAB, PO, Daily, 0 Refill(s) Start Date: 04/12/17 Status: Ordered metFORMIN 500 mg oral tablet 1 TAB, PO, BID (2 times a day), 0 Refill(s) Start Date: 06/24/18 Status: Ordered Metoprolol Tartrate 50 mg oral tablet 1 TAB, PO, Daily, 0 Refill(s) Start Date: 04/12/17 Status: Ordered raNITIdine 75 mg oral tablet 1 TAB, PO, Daily, 0 Refill(s) Start Date: 06/24/18 Status: Ordered Results HEMATOLOGY Most recent to 1 oldest [Reference Range]: WBC [5.4-10.8 5.9 x10'3/microL x10'3/microL] (06/24/18 6:55 AM) RBC [3.79-5.19 4.04 x10'6/microL x10'6/microL] (06/24/18 6:55 AM) Hgb [11.2-15.7 g/dL] 11.8 g/dL (06/24/18 6:55 AM) Hct [34.1-44.9 %] 37.3 % (06/24/18 6:55 AM) Platelet [126-432 186 x10'3/microL x10'3/microL] (06/24/18 6:55 AM) MCV [83.7-99.5 fL] 92.3 fL (06/24/18 6:55 AM) MCH [27.6-33.1 pg] 29.2 pg (06/24/18 6:55 AM) MCHC [31.3-34.9 31.6 g/dL g/dL] (06/24/18 6:55 AM) RDW [38.6-50.2 fL] 44.0 fL (06/24/18 6:55 AM) MPV [9.2-12.2 fL] 10.4 fL (06/24/18 6:55 AM) Abs NRBCs [0.00-0.01 0.00 x10'3/microL x10'3/microL] (06/24/18 6:55 AM) Neutrophils 61.5 % [42.7-77.1 %] (06/24/18 6:55 AM) Lymphs [12.1-45.3 %] 28.7 % (06/24/18 6:55 AM) Monocytes % 7.3 % [4.4-12.5 %] (06/24/18 6:55 AM) Eosinophil % 1.5 % [0.0-5.6 %] (06/24/18 6:55 AM) Basophil % [0.0-1.0 0.3 % %] (06/24/18 6:55 AM) Neutro Absolute 3.6 x10'3/microL [1.4-6.8 (06/24/18 6:55 AM) x10'3/microL] Lymph Absolute 1.7 x10'3/microL [0.6-3.2 (06/24/18 6:55 AM) x10'3/microL] [place] Absolute 0.4 x10'3/microL [0.2-0.9 (06/24/18 6:55 AM) x10'3/microL] Eos Absolute 0.1 x10'3/microL [0.0-0.6 (06/24/18 6:55 AM) x10'3/microL] Basophil Absolute 0.0 x10'3/microL [0.0-0.1 (06/24/18 6:55 AM) x10'3/microL] Immature 0.04 x10'3/microL Granulocytes Abs *HI* [0.01-0.03 (06/24/18 6:55 AM) x10'3/microL] Immature 0.7 % Granulocytes % (06/24/18 6:55 AM) [0.0-1.0 %] NRBC [0.0-0.2 0.0 /100WBC /100WBC] (06/24/18 6:55 AM) PT [11.7-14.3 14.1 second second] (06/24/18 6:55 AM) INR 1.1 *NA* (06/24/18 6:55 AM) PTT [23.3-34.2 30.5 second second] (06/24/18 6:55 AM) CHEMISTRY Most recent to 1 oldest [Reference Range]: Sodium [136-145 143 mmol/L mmol/L] (06/24/18 6:55 AM) Potassium [3.5-5.1 4.2 mmol/L mmol/L] (06/24/18 6:55 AM) Chloride [98-107 109 mmol/L mmol/L] *HI* (06/24/18 6:55 AM) CO2 [22-29 mmol/L] 23 mmol/L (06/24/18 6:55 AM) AGAP [3-20] 11 (06/24/18 6:55 AM) Glucose [70-99 181 mg/dL mg/dL] *HI* (06/24/18 6:55 AM) BUN [8-23 mg/dL] 18 mg/dL (06/24/18 6:55 AM) Creatinine 0.62 mg/dL [0.50-0.90 mg/dL] (06/24/18 6:55 AM) Calcium [8.8-10.2 9.1 mg/dL mg/dL] (06/24/18 6:55 AM) Est CrCl (CG) 63.7 mL/min 1 (06/24/18 6:55 AM) GFR (CKD-EPI) 88.5 mL/min/1.73 m2 2 *NA* (06/24/18 6:55 AM) 1Result Comment: Estimated Creatinine Clearance calculated based on Cockcroft-Gault formula. 2Result Comment: GFR calculated based on CKD-EPI Creatinine Equation (2009). Age(years) Average GFR 20-29 116 mL/min/1.73 m^2 30-39 107 mL/min/1.73 m^2 40-49 99 mL/min/1.73 m^2 50-59 93 mL/min/1.73 m^2 60-69 85 mL/min/1.73 m^2 70+ 75 mL/min/1.73 m^2 Acceptable GFR =>60 mL/min/1.73 m^2 Chronic Kidney Disease <60 mL/min/1.73 m^2 Kidney Failure <15 mL/min/1.73 m^2 Immunizations No data available for this section Procedures No data available for this section Social History No data available for this section Functional Status No data available for this section Assessment and Plan No data available for this section Hospital Discharge Instructions No data available for this section
--- OUTSIDE RECORDS SUMMARY | 2020-05-01 13:05 | XMS REPORT | Summary of Care ---
Author Author [facility] Organization [facility] Address Unknown Phone Unavailable Care Team Providers Care Reconciliation Analyst Name Role Phone JC PERALTA, DR. ANGELA SIMS PCP Encounter [facility] TORRES Leyva [id number] Date(s): 08/03/18 - 08/03/18 [address] [place], [place] [address] [phone] Encounter Diagnosis History of peripheral vascular disease (Discharge Diagnosis) - 08/03/18 Closed bimalleolar fracture of right ankle (Discharge Diagnosis) - 08/03/18 Discharge Disposition: Home - Attending Physician: VENU DE LA CRUZ MD Admitting Physician: VENU DE LA CRUZ MD Vital Signs Most recent to 1 oldest [Reference Range]: Temperature 98.1 DegF [96.8-99.7 DegF] (08/03/18 6:37 PM) Temp Method Oral (08/03/18 6:37 PM) Heart Rate 92 bpm (08/03/18 10:00 PM) Respiratory Rate 19 br/min [15-20 br/min] (08/03/18 10:00 PM) Blood Pressure 168/55 mmHg [90-180/50-90 mmHg] (08/03/18 10:00 PM) NIBP MAP 82 mmHg (08/03/18 10:00 PM) NIBP MAP Calc 93 (08/03/18 10:00 PM) Problem List Condition Effective Dates Status [...] levothyroxine 125 mcg (0.125 mg) oral capsule = 1 CAP, PO, Daily, 0 Refill(s), Indication: Thyroid Disorder Start Date: 08/02/18 Status: Ordered lisinopril 20 mg oral tablet 1 TAB, PO, Daily, 0 Refill(s), Indication: High Blood Pressure Start Date: 08/02/18 Status: Ordered losartan 100 mg oral tablet = 1 TAB, PO, Daily, 0 Refill(s), Indication: [...] Indication: Reflux Start Date: 08/02/18 Status: Ordered Percocet 5/325 oral tablet 1 TAB, PO, Q6H (Every 6 hours), PRN Pain, x 3 day, # 12 TAB, 0 Refill(s), for ac kamlesh pain, Indication: Severe Pain Start Date: 08/03/18 Stop Date: 08/06/18 Status: Ordered raNITIdine 75 mg oral tablet 1 TAB, PO, Daily, 0 Refill(s) Start Date: 06/24/18 Status: Ordered Results HEMATOLOGY Most recent to 1 oldest [Reference Range]: WBC [4.8-10.8 5.4 x10'3/microL x10'3/microL] (08/03/18 7:11 PM) RBC [4.20-5.40 4.01 million/microL million/microL] *LOW* (08/03/18 7:11 PM) Hgb [12.0-16.0 g/dL] 11.4 g/dL *LOW* (08/03/18 7:11 PM) Hct [37.0-47.0 %] 36.0 % *LOW* (08/03/18 7:11 PM) Platelet [150-400 271 x10'3/microL x10'3/microL] (08/03/18 7:11 PM) MCV [80.0-99.0 fL] 89.8 fL (08/03/18 7:11 PM) MCH [27.0-33.0 pg] 28.4 pg (08/03/18 7:11 PM) MCHC [33.0-36.5 31.7 g/dL g/dL] *LOW* (08/03/18 7:11 PM) RDW [11.9-17.7 %] 12.4 % (08/03/18 7:11 PM) MPV [7.4-10.4 fL] 10.6 fL *HI* (08/03/18 7:11 PM) Neutrophils 58.6 % [45.0-70.0 %] (08/03/18 7:11 PM) Lymphs [19.0-40.0 %] 30.7 % (08/03/18 7:11 PM) Monocytes % 7.1 % [4.2-12.4 %] (08/03/18 7:11 PM) Eosinophil % 2.8 % [0.0-6.0 %] (08/03/18 7:11 PM) Basophil % [0.0-2.3 0.4 % %] (08/03/18 7:11 PM) Neutro Absolute 3.1 x10'3/microL [1.8-7.2 (08/03/18 7:11 PM) x10'3/microL] Lymph Absolute 1.6 x10'3/microL [1.1-4.2 (08/03/18 7:11 PM) x10'3/microL] [place] Absolute 0.4 x10'3/microL [0.0-0.7 (08/03/18 7:11 PM) x10'3/microL] Eos Absolute 0.15 x10'3/microL [0.00-0.50 (08/03/18 7:11 PM) x10'3/microL] Basophil Absolute 0.02 x10'3/microL [0.00-0.22 (08/03/18 7:11 PM) x10'3/microL] Immature 0.02 x10'3/microL Granulocytes Abs (08/03/18 7:11 PM) [0.00-0.18 x10'3/microL] Immature 0.4 % Granulocytes % (08/03/18 7:11 PM) [0.0-1.8 %] CHEMISTRY Most recent to 1 oldest [Reference Range]: Sodium [135-145 136 mmol/L mmol/L] (08/03/18 7:11 PM) Potassium [3.3-4.9 4.3 mmol/L mmol/L] (08/03/18 7:11 PM) Chloride [101-111 100 mmol/L mmol/L] *LOW* (08/03/18 7:11 PM) CO2 [21-31 mmol/L] 23 mmol/L (08/03/18 7:11 PM) AGAP [6.0-16.0] 13.0 (08/03/18 7:11 PM) Glucose [68-99 335 mg/dL mg/dL] *HI* (08/03/18 7:11 PM) BUN [6-25 mg/dL] 39 mg/dL *HI* (08/03/18 7:11 PM) Creatinine 0.90 mg/dL [0.44-1.03 mg/dL] (08/03/18 7:11 PM) Calcium [8.5-10.5 10.1 mg/dL mg/dL] (08/03/18 7:11 PM) Est CrCl (CG) 48.5 mL/min 1 (08/03/18 7:11 PM) GFR (CKD-EPI) 62.8 mL/min/1.73 m2 2 *NA* (08/03/18 7:11 PM) Magnesium [1.8-2.5 1.3 mg/dL mg/dL] *LOW* (08/03/18 7:11 PM) 1Result Comment: Estimated Creatinine Clearance calculated based [...]
--- OUTSIDE RECORDS SUMMARY | 2020-05-01 13:05 | XMS REPORT | Summary of Care ---
Author Author [facility] Organization [facility] Address Unknown Phone Unavailable Care Team Providers Care Sap Trainer Name Role Phone JC PERALTA, DR. ANGELA SIMS PCP Encounter ORM/OCN TORRES Leyva [id number] Date(s): 07/18/18 - 07/19/[address] [address]- Encounter Diagnosis Severe uncontrolled hypertension (Discharge Diagnosis) - 07/18/18 PAD (peripheral artery disease) (Discharge Diagnosis) - 07/18/18 Diabetes (Discharge Diagnosis) - 07/18/18 Carotid artery disease (Discharge Diagnosis) - 07/18/18 Pulmonary nodule (Discharge Diagnosis) - 07/18/18 Chest pain (Discharge Diagnosis) - 07/18/18 Emphysema/COPD (Discharge Diagnosis) - 07/18/18 Dyslipidemia (Discharge Diagnosis) - 07/18/18 Thyroid disease (Discharge Diagnosis) - 07/18/18 Discharge Disposition: Home - 01 Attending Physician: EAGLE DEVINE MD Admitting Physician: JANELLE ALVAREZ MD Referring Physician: JANELLE ALVAREZ MD. Vital Signs Most recent to 1 oldest [Reference Range]: Vital Signs Routine Assessment Status/Type (07/19/18 8:00 AM) Temperature 98.0 DegF [96.8-99.7 DegF] (07/19/18 11:00 AM) Temp Method Oral (07/19/18 11:00 AM) Heart Rate 67 bpm (07/19/18 3:00 PM) Heart Rate Location Auto BP, Continuous Intellectual Property Counsel (07/18/18 10:00 PM) Telemetry Details Applied (07/18/18 10:00 PM) Respiratory Rate 19 br/min [15-20 br/min] (07/19/18 3:00 PM) Blood Pressure 135/56 mmHg [90-180/50-90 mmHg] (07/19/18 3:00 PM) NIBP MAP 80 mmHg (07/19/18 3:00 PM) NIBP MAP Calc 82 (07/19/18 3:00 PM) Heart Rhythm Sinus/atrial rhythm Interpretation (07/19/18 11:00 AM) Problem List Condition Effective Dates Status Health Status Informan t Diabetes(Confirmed) Active Carotid artery Active disease(Confirmed) Thyroid Active disease(Confirmed) Dyslipidemia(Confirm Active ed) H/O: Active pneumonia(Confirmed) History of Active aorto-femoral bypass(Confirmed) Hx of Active appendectomy(Confirm ed) H/O: CVA Active (cerebrovascular accident)(Confirmed) Pulmonary Active nodule(Confirmed) Superior mesenteric Active artery stenosis(Confirmed) PAD (peripheral Active artery disease)(Confirmed) Emphysema/COPD(Confi Active rmed) 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) Allergies, Adverse Reactions, Alerts Substance Reaction Severity Status lidocaine Active Medications amLODIPine 10 mg oral tablet 1 TAB, PO, Daily, # 30 TAB, 0 Refill(s), Hold for systolic blood pressure less t rodriguez 110, Indication: High Blood Pressure, Pharmacy: [facility] [id number] Start Date: 07/19/18 Stop Date: 08/18/18 Status: Ordered aspirin 81 mg oral tablet, chewable 1 TAB, PO, Daily, # 30 TAB, 0 Refill(s), Indication: Clot Prevention, Pharmacy: [facility] [id number] Start Date: 07/19/18 Stop Date: 08/18/18 Status: Ordered atorvastatin 10 mg oral tablet 1 TAB, PO, Daily, 0 Refill(s) Start Date: 04/12/17 Status: Ordered glipiZIDE 5 mg oral tablet 1 TAB, PO, Daily, 0 Refill(s) Start Date: 06/24/18 Status: Ordered hydroCHLOROthiazide 12.5 mg oral capsule 1 CAP, PO, Daily, # 30 CAP, 0 Refill(s), Hold for systolic blood pressure less t rodriguez 110, Indication: High Blood Pressure, Pharmacy: [facility] [id number] Start Date: 07/20/18 Stop Date: 08/19/18 Status: Ordered levothyroxine 125 mcg (0.125 mg) oral capsule = 1 CAP, PO, Daily, # 30 CAP, 0 Refill(s), Indication: Thyroid Disorder, Pharmac y: [facility] [id number] Start Date: 07/19/18 Stop Date: 08/18/18 Status: Ordered lisinopril 20 mg oral tablet 1 TAB, PO, BID (2 times a day), # 60 TAB, 0 Refill(s), Hold for systolic blood p ressure less than 100, Indication: High Blood Pressure, Pharmacy: [facility] [id number] Start Date: 07/20/18 Stop Date: 08/19/18 Status: Ordered metFORMIN 500 mg oral tablet 1 TAB, PO, BID (2 times a day), 0 Refill(s) Start Date: 06/24/18 Status: Ordered Metoprolol Tartrate 50 mg oral tablet 1 TAB, PO, Daily, 0 Refill(s), Hold for systolic blood pressure less than 100 or heart rate less than 50 Start Date: 04/12/17 Status: Ordered nitroglycerin 0.4 mg sublingual tablet 1 TAB, Sublingual, 5MX3 (Every 5 minutes x 3 doses), PRN Chest Pain, # 100 TAB, 0 Refill(s), Indication: Chest Pain, Pharmacy: [facility] [id number] Start Date: 07/19/18 Stop Date: 08/18/18 Status: Ordered raNITIdine 75 mg oral tablet 1 TAB, PO, Daily, 0 Refill(s) Start Date: 06/24/18 Status: Ordered Results HEMATOLOGY Most recent to 1 oldest [Reference Range]: WBC [5.4-10.8 3.8 x10'3/microL x10'3/microL] *LOW* (07/19/18 3:19 AM) RBC [3.79-5.19 3.63 x10'6/microL x10'6/microL] *LOW* (07/19/18 3:19 AM) Hgb [11.2-15.7 g/dL] 10.7 g/dL *LOW* (07/19/18 12:06 PM) Hct [34.1-44.9 %] 33.4 % *LOW* (07/19/18 12:06 PM) Platelet [126-432 144 x10'3/microL x10'3/microL] (07/19/18 3:19 AM) MCV [83.7-99.5 fL] 90.0 fL (07/19/18 12:06 PM) MCH [27.6-33.1 pg] 28.8 pg (07/19/18 12:06 PM) MCHC [31.3-34.9 32.0 g/dL g/dL] (07/19/18 12:06 PM) RDW [38.6-50.2 fL] 43.6 fL (07/19/18 3:19 AM) MPV [9.2-12.2 fL] 10.6 fL (07/19/18 3:19 AM) Abs NRBCs [0.00-0.01 0.00 x10'3/microL x10'3/microL] (07/19/18 3:19 AM) Neutrophils 48.0 % [42.7-77.1 %] (07/18/18 7:15 PM) Lymphs [12.1-45.3 %] 38.8 % (07/18/18 7:15 PM) Monocytes % 10.1 % [4.4-12.5 %] (07/18/18 7:15 PM) Eosinophil % 2.5 % [0.0-5.6 %] (07/18/18 7:15 PM) Basophil % [0.0-1.0 0.3 % %] (07/18/18 7:15 PM) Neutro Absolute 1.7 x10'3/microL [1.4-6.8 (07/18/18 7:15 PM) x10'3/microL] Lymph Absolute 1.4 x10'3/microL [0.6-3.2 (07/18/18 7:15 PM) x10'3/microL] [place] Absolute 0.4 x10'3/microL [0.2-0.9 (07/18/18 7:15 PM) x10'3/microL] Eos Absolute 0.1 x10'3/microL [0.0-0.6 (07/18/18 7:15 PM) x10'3/microL] Basophil Absolute 0.0 x10'3/microL [0.0-0.1 (07/18/18 7:15 PM) x10'3/microL] Immature 0.01 x10'3/microL Granulocytes Abs (07/18/18 7:15 PM) [0.01-0.03 x10'3/microL] Immature 0.3 % Granulocytes % (07/18/18 7:15 PM) [0.0-1.0 %] NRBC [0.0-0.2 0.0 /100WBC /100WBC] (07/19/18 3:19 AM) PT [11.7-14.3 12.8 second second] (07/18/18 7:15 PM) INR 1.0 *NA* (07/18/18 7:15 PM) CHEMISTRY Most recent to 1 oldest [Reference Range]: Sodium [136-145 145 mmol/L mmol/L] (07/19/18 3:19 AM) Potassium [3.5-5.1 4.6 mmol/L mmol/L] (07/19/18 3:19 AM) Chloride [98-107 108 mmol/L mmol/L] *HI* (07/19/18 3:19 AM) CO2 [22-29 mmol/L] 25 mmol/L (07/19/18 3:19 AM) AGAP [3-20] 12 (07/19/18 3:19 AM) Glucose [70-99 176 mg/dL mg/dL] *HI* (07/19/18 3:19 AM) Glucose Level (POC) 127 mg/dL 1 [70-100 mg/dL] *HI* (07/19/18 11:53 AM) BUN [8-23 mg/dL] 23 mg/dL (07/19/18 3:19 AM) Creatinine 0.70 mg/dL [0.50-0.90 mg/dL] (07/19/18 3:19 AM) Calcium [8.8-10.2 9.4 mg/dL mg/dL] (07/19/18 3:19 AM) Est CrCl (CG) 56.4 mL/min 2 (07/19/18 3:19 AM) GFR (CKD-EPI) 85.0 mL/min/1.73 m2 3 *NA* (07/19/18 3:19 AM) Albumin Level 3.8 g/dL [3.5-5.2 g/dL] (07/18/18 7:15 PM) Total Protein 6.7 g/dL [6.4-8.3 g/dL] (07/18/18 7:15 PM) Troponin T [<=14.00 20.64 ng/L ng/L] *HI* (07/19/18 3:19 AM) pro-BNP [0-1800 3286 pg/mL pg/mL] *HI* (07/18/18 7:15 PM) Cholesterol [<=200 99 mg/dL mg/dL] (07/19/18 3:19 AM) HDL [>=40 mg/dL] 25 mg/dL *LOW* (07/19/18 3:19 AM) LDL Calculated 32 mg/dL *NA* (07/19/18 3:19 AM) LDL/HDL Ratio 1.3 *NA* (07/19/18 3:19 AM) Chol/HDL Ratio 4.0 *NA* (07/19/18 3:19 AM) VLDL Calculated 42 mg/dL *NA* (07/19/18 3:19 AM) Triglycerides [<=150 210 mg/dL mg/dL] *HI* (07/19/18 3:19 AM) Alk Phos [35-105 82 Units/L Units/L] (07/18/18 7:15 PM) AST [10-33 Units/L] 20 Units/L (07/18/18 7:15 PM) ALT(SGPT) [10-33 25 Units/L Units/L] (07/18/18 7:15 PM) Bili Total [<=1.0 0.5 mg/dL mg/dL] (07/18/18 7:15 PM) 1Result Comment: Meter: [id number]~Bacon Skin Lifter: [id number] Otilia Rockwell 2Result Comment: Estimated Creatinine Clearance calculated based on Cockcroft-Gault formula. 3Result Comment: GFR calculated based on CKD-EPI Creatinine Equation (2009). Age(years) Average GFR 20-29 116 mL/min/1.73 m^2 30-39 107 mL/min/1.73 m^2 40-49 99 mL/min/1.73 m^2 50-59 93 mL/min/1.73 m^2 60-69 85 mL/min/1.73 m^2 70+ 75 mL/min/1.73 m^2 Acceptable GFR =>60 mL/min/1.73 m^2 Chronic Kidney Disease <60 mL/min/1.73 m^2 Kidney Failure <15 mL/min/1.73 m^2 ENDOCRINE/TUMOR MARKER Most recent to 1 oldest [Reference Range]: TSH [0.270-4.200 <0.005 microInter.Units/mL microInter.Units/mL] *LOW* (07/18/18 11:38 PM) URINE Most recent to 1 oldest [Reference Range]: UA Color Light-Yellow (07/18/18 8:48 PM) UA Appear [Clear] Clear (07/18/18 8:48 PM) UA pH [5.0-8.0] 5.5 (07/18/18 8:48 PM) UA Spec Grav 1.011 [1.005-1.030] (07/18/18 8:48 PM) UA Glucose Negative [Negative] (07/18/18 8:48 PM) UA Bili [Negative] Negative (07/18/18 8:48 PM) UA Ketones Negative [Negative] (07/18/18 8:48 PM) UA Blood [Negative] Negative (07/18/18 8:48 PM) UA Protein 1+ [Negative] *ABN* (07/18/18 8:48 PM) UA Nitrite Negative [Negative] (07/18/18 8:48 PM) UA Leuk Est Negative [Negative] (07/18/18 8:48 PM) UA Spec Type Clean Catch (07/18/18 8:48 PM) UA WBC [0-6 /hpf] <1 /hpf (07/18/18 8:48 PM) UA RBC [0-3 /hpf] 1 /hpf (07/18/18 8:48 PM) UA Squamous Trace Epithelial [None] *ABN* (07/18/18 8:48 PM) Culture? No (07/18/18 8:48 PM) U Amph Scrn Negative [Negative] (07/18/18 8:48 PM) U Anita Scrn Negative [Negative] (07/18/18 8:48 PM) U Benzodia Scrn Negative [Negative] (07/18/18 8:48 PM) U Cocaine Scrn Negative [Negative] (07/18/18 8:48 PM) U Opiate Scrn Negative [Negative] (07/18/18 8:48 PM) U PCP Scrn Negative [Negative] (07/18/18 8:48 PM) U Cannab Scrn Negative [Negative] (07/18/18 8:48 PM) Immunizations No data available for this section Procedures No data available for this section Social History No data available for this section Functional Status No data available for this section Assessment and Plan No data available for this section Hospital Discharge Instructions No data available for this section
--- OUTSIDE RECORDS SUMMARY | 2020-05-01 13:05 | XMS REPORT | Summary of Care ---
Author Author [facility] Organization [facility] Address Unknown Phone Unavailable Care Team Providers Care Executive Receptionist Name Role Phone JC PERALTA, DR. ANGELA SIMS PCP Encounter ORM/OCN TORRES Leyva [id number] Date(s): 08/12/18 - 08/15/[address] [address]- Encounter Diagnosis PAD (peripheral artery disease) (Discharge Diagnosis) - 08/13/18 Acute blood loss as cause of postoperative anemia (Discharge Diagnosis) - 08/13/18 Bimalleolar fracture of right ankle (Discharge Diagnosis) - 08/13/18 Discharge Disposition: Home W/ Home Health Svcs - 06 Attending Physician: TODD PADRON MD Admitting Physician: TODD PADRON MD Referring Physician: TODD PADRON MD Vital Signs Most recent to 1 oldest [Reference Range]: Vital Signs Routine Assessment Status/Type (08/15/18 9:00 PM) Temperature 98.9 DegF [96.8-99.7 DegF] (08/15/18 9:00 PM) Temp Method Oral (08/15/18 9:00 PM) Heart Rate 84 bpm (08/15/18 9:00 PM) Heart Rate Location Auto BP, Continuous Intelligence Consultant (08/14/18 3:00 PM) Telemetry Details In place (08/14/18 3:00 PM) Telemetry Box Number [id number] (08/15/18 4:00 PM) Pulse Equipment SPO2 (08/15/18 7:15 PM) Respiratory Rate 19 br/min [15-20 br/min] (08/15/18 9:00 PM) Blood Pressure 118/44 mmHg [90-180/50-90 mmHg] (08/15/18 9:40 PM) NIBP MAP 70 mmHg (08/15/18 7:14 PM) NIBP MAP Calc 60 (08/15/18 9:00 PM) NIBP Alarms set and Yes on (08/13/18 6:00 AM) BP Location Arm, left (08/15/18 9:40 PM) BP Cuff Size Medium (08/15/18 4:00 PM) Heart Rhythm Sinus/atrial rhythm Interpretation (08/15/18 4:00 PM) Vital Signs Status Vital signs taken (08/15/18 4:00 PM) Vital Signs Note administered O2 at 2 L/min. informed the RN (08/14/18 3:00 PM) Defibrilator Vest No (08/13/18 6:00 AM) Problem List Condition Effective Dates Status [...] Reflux Start Date: 08/02/18 Status: Ordered Results HEMATOLOGY Most recent to 1 oldest [Reference Range]: WBC [5.4-10.8 4.8 x10'3/microL x10'3/microL] *LOW* (08/15/18 4:30 AM) RBC [3.79-5.19 2.94 x10'6/microL x10'6/microL] *LOW* (08/15/18 4:30 AM) Hgb [11.2-15.7 g/dL] 8.5 g/dL *LOW* (08/15/18 4:30 AM) Hct [34.1-44.9 %] 27.3 % *LOW* (08/15/18 4:30 AM) Platelet [126-432 169 x10'3/microL x10'3/microL] (08/15/18 4:30 AM) MCV [83.7-99.5 fL] 92.9 fL (08/15/18 4:30 AM) MCH [27.6-33.1 pg] 28.9 pg (08/15/18 4:30 AM) MCHC [31.3-34.9 31.1 g/dL g/dL] *LOW* (08/15/18 4:30 AM) RDW [38.6-50.2 fL] 43.8 fL (08/15/18 4:30 AM) MPV [9.2-12.2 fL] 10.5 fL (08/15/18 4:30 AM) Abs NRBCs [0.00-0.01 0.00 x10'3/microL x10'3/microL] (08/15/18 4:30 AM) Neutrophils 67.9 % [42.7-77.1 %] (08/13/18 7:30 AM) Lymphs [12.1-45.3 %] 20.9 % (08/13/18 7:30 AM) Monocytes % 8.8 % [4.4-12.5 %] (08/13/18 7:30 AM) Eosinophil % 1.8 % [0.0-5.6 %] (08/13/18 7:30 AM) Basophil % [0.0-1.0 0.3 % %] (08/13/18 7:30 AM) Neutro Absolute 4.1 x10'3/microL [1.4-6.8 (08/13/18 7:30 AM) x10'3/microL] Lymph Absolute 1.3 x10'3/microL [0.6-3.2 (08/13/18 7:30 AM) x10'3/microL] [place] Absolute 0.5 x10'3/microL [0.2-0.9 (08/13/18 7:30 AM) x10'3/microL] Eos Absolute 0.1 x10'3/microL [0.0-0.6 (08/13/18 7:30 AM) x10'3/microL] Basophil Absolute 0.0 x10'3/microL [0.0-0.1 (08/13/18 7:30 AM) x10'3/microL] Immature 0.02 x10'3/microL Granulocytes Abs (08/13/18 7:30 AM) [0.01-0.03 x10'3/microL] Immature 0.3 % Granulocytes % (08/13/18 7:30 AM) [0.0-1.0 %] NRBC [0.0-0.2 0.0 /100WBC /100WBC] (08/15/18 4:30 AM) PT [11.7-14.3 13.8 second second] (08/12/18 9:56 AM) INR 1.1 *NA* (08/12/18 9:56 AM) PTT [23.3-34.2 29.7 second second] (08/12/18 9:56 AM) CHEMISTRY Most recent to 1 oldest [Reference Range]: Sodium [136-145 139 mmol/L mmol/L] (08/15/18 4:30 AM) Potassium [3.5-5.1 4.8 mmol/L mmol/L] (08/15/18 4:30 AM) Chloride [98-107 103 mmol/L mmol/L] (08/15/18 4:30 AM) CO2 [22-29 mmol/L] 22 mmol/L (08/15/18 4:30 AM) AGAP [3-20] 14 (08/15/18 4:30 AM) Glucose [70-99 137 mg/dL mg/dL] *HI* (08/15/18 4:30 AM) Glucose Level (POC) 130 mg/dL 1 [70-100 mg/dL] *HI* (08/14/18 8:14 PM) BUN [8-23 mg/dL] 28 mg/dL *HI* (08/15/18 4:30 AM) Creatinine 0.91 mg/dL [0.50-0.90 mg/dL] *HI* (08/15/18 4:30 AM) Calcium [8.8-10.2 9.2 mg/dL mg/dL] (08/15/18 4:30 AM) Est CrCl (CG) 44.2 mL/min 2 (08/15/18 4:30 AM) GFR (CKD-EPI) 61.9 mL/min/1.73 m2 3 *NA* (08/15/18 4:30 AM) Albumin Level 4.2 g/dL [3.5-5.2 g/dL] (08/12/18 9:56 AM) Total Protein 7.6 g/dL [6.4-8.3 g/dL] (08/12/18 9:56 AM) Magnesium [1.6-2.4 1.6 mg/dL mg/dL] (08/15/18 4:30 AM) Alk Phos [35-105 79 Units/L Units/L] (08/12/18 9:56 AM) AST [10-33 Units/L] 21 Units/L (08/12/18 9:56 AM) ALT(SGPT) [10-33 20 Units/L Units/L] (08/12/18 9:56 AM) Bili Total [<=1.0 0.6 mg/dL mg/dL] (08/12/18 9:56 AM) 1Result Comment: Meter: [id number]~Log Scaler: [id number] Shereen Brush 2Result Comment: Estimated Creatinine Clearance calculated based on Cockcroft-Gault formula. 3Result Comment: GFR calculated based on CKD-EPI Creatinine Equation (2009). Age(years) Average GFR 20-29 116 mL/min/1.73 m^2 30-39 107 mL/min/1.73 m^2 40-49 99 mL/min/1.73 m^2 50-59 93 mL/min/1.73 m^2 60-69 85 mL/min/1.73 m^2 70+ 75 mL/min/1.73 m^2 Acceptable GFR =>60 mL/min/1.73 m^2 Chronic Kidney Disease <60 mL/min/1.73 m^2 Kidney Failure <15 mL/min/1.73 m^2 URINE Most recent to 1 oldest [Reference Range]: UA Color Yellow (08/12/18 10:47 PM) UA Appear [Clear] Cloudy *ABN* (08/12/18 10:47 PM) UA pH [5.0-8.0] 5.5 (08/12/18 10:47 PM) UA Spec Grav 1.023 [1.005-1.030] (08/12/18 10:47 PM) UA Glucose Negative [Negative] (08/12/18 10:47 PM) UA Bili [Negative] Negative (08/12/18 10:47 PM) UA Ketones Negative [Negative] (08/12/18 10:47 PM) UA Blood [Negative] Trace *ABN* (08/12/18 10:47 PM) UA Protein 1+ [Negative] *ABN* (08/12/18 10:47 PM) UA Nitrite Negative [Negative] (08/12/18 10:47 PM) UA Leuk Est 3+ [Negative] *ABN* (08/12/18 10:47 PM) UA Spec Type [place] Cath (08/12/18 10:47 PM) UA WBC [0-6 /hpf] >60 /hpf *HI* (08/12/18 10:47 PM) UA RBC [0-3 /hpf] >30 /hpf *HI* (08/12/18 10:47 PM) UA Bacteria Trace *ABN* (08/12/18 10:47 PM) UA Mucous Trace (08/12/18 10:47 PM) UA Amorphous Trace Crystals *ABN* (08/12/18 10:47 PM) UA Uric Acid Rare Crystals *ABN* (08/12/18 9:47 AM) UA Hyaline Casts 17 /Lpf [0-3 /Lpf] *HI* (08/12/18 10:47 PM) UA Squamous Rare Epithelial [None] *ABN* (08/12/18 10:47 PM) Culture? Yes (08/12/18 10:47 PM) BLOOD BANK Most recent to 1 oldest [Reference Range]: ABORh Interp O POS *Unknown* (08/12/18 9:56 AM) ABSC 3 Cell Interp Negative (08/12/18 9:56 AM) Immunizations No data available for this section Procedures No data available for this section Social History No data available for this section Functional Status No data available for this section Assessment and Plan No data available for this section Hospital Discharge Instructions No data available for this section
--- OUTSIDE RECORDS SUMMARY | 2020-05-01 13:06 | XMS REPORT | Summary of Care ---
Author Author [facility] Organization [facility] Address Unknown Phone Unavailable Care Team Providers Care Material Flow Analyst Name Role Phone JC PERALTA, DR. Mane SIMS PCP TOAN PERALTA, DR. Omi VELAZCO PCP UNASSIGNED MD, TEMP PCP Unavailable LAVERN PERALTA, DR. Fahad HAINES PCP Encounter SILVIA Leyva [id number] Date(s): 08/19/17 - 08/19/[address] [address] Encounter Diagnosis Fever (Discharge Diagnosis) - 08/19/17 Altered mental status (Discharge Diagnosis) - 08/19/17 Discharge Disposition: Home - 01 Attending Physician: BENJAMIN HAHN MD Admitting Physician: BENJAMIN HAHN MD Vital Signs Most recent to 1 oldest [Reference Range]: Temperature 98.8 DegF [96.8-99.7 DegF] (08/19/17 6:00 PM) Temp Method Temporal (08/19/17 6:00 PM) Heart Rate 74 bpm (08/19/17 7:00 PM) Respiratory Rate 20 br/min [15-20 br/min] (08/19/17 6:00 PM) Blood Pressure 138/49 mmHg [90-180/50-90 mmHg] (08/19/17 7:00 PM) NIBP MAP 75 mmHg (08/19/17 7:00 PM) NIBP MAP Calc 79 (08/19/17 7:00 PM) Problem List Condition Effective Dates Status [...] Refill(s) Start Date: 04/12/17 Status: Ordered Results HEMATOLOGY Most recent to 1 oldest [Reference Range]: WBC [4.8-10.8 10.3 x10'3/microL x10'3/microL] (08/19/17 3:27 PM) RBC [4.20-5.40 3.39 x10'6/microL x10'6/microL] *LOW* (08/19/17 3:27 PM) Hgb [12.0-16.0 g/dL] 9.9 g/dL *LOW* (08/19/17 3:27 PM) Hct [36.0-47.0 %] 30.9 % *LOW* (08/19/17 3:27 PM) Platelet [130-400 222 x10'3/microL x10'3/microL] (08/19/17 3:27 PM) MCV [81.0-99.0 fL] 91.2 fL (08/19/17 3:27 PM) MCH [27.0-34.0 pg] 29.2 pg (08/19/17 3:27 PM) MCHC [33.4-35.5 32.0 g/dL g/dL] *LOW* (08/19/17 3:27 PM) RDW [36.4-46.3 fL] 47.1 fL *HI* (08/19/17 3:27 PM) MPV [9.4-12.3 fL] 10.1 fL (08/19/17 3:27 PM) Neutrophils 82.4 % [47.0-75.0 %] *HI* (08/19/17 3:27 PM) Lymphs [14.0-40.0 %] 10.6 % *LOW* (08/19/17 3:27 PM) Monocytes % 5.8 % [5.0-10.0 %] (08/19/17 3:27 PM) Eosinophil % 0.4 % [0.0-6.0 %] (08/19/17 3:27 PM) Basophil % [0.0-1.5 0.1 % %] (08/19/17 3:27 PM) Neutro Absolute 8.5 x10'3/microL [1.7-6.7 *HI* x10'3/microL] (08/19/17 3:27 PM) Lymph Absolute 1.1 x10'3/microL [0.8-3.0 (08/19/17 3:27 PM) x10'3/microL] [place] Absolute 0.6 x10'3/microL [0.2-1.1 (08/19/17 3:27 PM) x10'3/microL] Eos Absolute 0.0 x10'3/microL [0.0-0.6 (08/19/17 3:27 PM) x10'3/microL] Basophil Absolute 0.0 x10'3/microL [0.0-0.1 (08/19/17 3:27 PM) x10'3/microL] Immature 0.1 x10'3/microL Granulocytes Abs (08/19/17 3:27 PM) [0.0-0.5 x10'3/microL] Immature 0.7 % Granulocytes % (08/19/17 3:27 PM) [0.0-1.0 %] CHEMISTRY Most recent to 1 oldest [Reference Range]: Sodium [136-145 135 mmol/L mmol/L] *LOW* (08/19/17 3:27 PM) Potassium [3.5-5.1 4.0 mmol/L mmol/L] (08/19/17 3:27 PM) Chloride [98-107 100 mmol/L mmol/L] (08/19/17 3:27 PM) CO2 [22-32 mmol/L] 21 mmol/L *LOW* (08/19/17 3:27 PM) AGAP [6-16] 14 (08/19/17 3:27 PM) Glucose [70-99 213 mg/dL mg/dL] *HI* (08/19/17 3:27 PM) Glucose Level (POC) 192 mg/dL 1 [70-100 mg/dL] *HI* (08/19/17 2:03 PM) BUN [5.0-21.0 mg/dL] 24.8 mg/dL *HI* (08/19/17 3:27 PM) Creatinine 0.82 mg/dL [0.60-1.20 mg/dL] (08/19/17 3:27 PM) Calcium [8.8-10.2 8.9 mg/dL mg/dL] (08/19/17 3:27 PM) Est CrCl (CG) 49.8 mL/min 2 (08/19/17 3:27 PM) GFR (CKD-EPI) 70.7 mL/min/1.73 m2 3 *NA* (08/19/17 3:27 PM) Albumin/Globulin 0.8 g/dL Ratio [1.1-2.2 g/dL] *LOW* (08/19/17 3:27 PM) Albumin Level 3.3 g/dL [3.5-5.2 g/dL] *LOW* (08/19/17 3:27 PM) Total Protein 7.2 g/dL [6.4-8.3 g/dL] (08/19/17 3:27 PM) Globulin [1.9-3.9 3.9 g/dL g/dL] (08/19/17 3:27 PM) Magnesium [1.60-2.40 1.70 mg/dL mg/dL] (08/19/17 3:27 PM) Troponin T <0.01 ng/mL *NA* (08/19/17 3:27 PM) pro-BNP [0-900 1763 pg/mL pg/mL] *HI* (08/19/17 3:27 PM) Alk Phos [35-105 83 Units/L Units/L] (08/19/17 3:27 PM) AST [5-40 Inter. 14 Inter. Units/L Units/L] (08/19/17 3:27 PM) ALT(SGPT) [10-45 14 Inter. Units/L Inter. Units/L] (08/19/17 3:27 PM) Bili Total [0.3-1.2 0.8 mg/dL mg/dL] (08/19/17 3:27 PM) Lactic Acid Lvl 1.1 mmol/L [0.5-2.2 mmol/L] (08/19/17 3:27 PM) 1Result Comment: Meter: [id number]~Export Freight Manager: [id number] PHILIP CHRIS 2Result Comment: Estimated Creatinine Clearance calculated based [...] 1 oldest [Reference Range]: UA Color Light-Yellow (08/19/17 5:17 PM) UA Appear [Clear] Clear (08/19/17 5:17 PM) UA pH [5.0-8.0] 5.5 (08/19/17 5:17 PM) UA Spec Grav 1.015 [1.005-1.030] (08/19/17 5:17 PM) UA Glucose Negative [Negative] (08/19/17 5:17 PM) UA Bili [Negative] Negative (08/19/17 5:17 PM) UA Ketones Negative [Negative] (08/19/17 5:17 PM) UA Blood [Negative] Negative (08/19/17 5:17 PM) UA Protein 1+ [Negative] *ABN* (08/19/17 5:17 PM) UA Nitrite Negative [Negative] (08/19/17 5:17 PM) UA Leuk Est Negative [Negative] (08/19/17 5:17 PM) UA Urobilinogen Normal [Normal] (08/19/17 5:17 PM) UA Spec Type Clean Catch (08/19/17 5:17 PM) UA WBC [0-6 /hpf] 1 /hpf (08/19/17 5:17 PM) UA RBC [0-3 /hpf] <1 /hpf (08/19/17 5:17 PM) UA Bacteria [Trace] None (08/19/17 5:17 PM) UA Mucous [1+] Trace (08/19/17 5:17 PM) UA Squamous Trace Epithelial [Few] (08/19/17 5:17 PM) Culture? No (08/19/17 5:17 PM) Immunizations No data available for this section Procedures No data available for this section Social History No data available for this section Functional Status No data available for this section Assessment and Plan No data available for this section Hospital Discharge Instructions No data available for this section
--- OUTSIDE RECORDS SUMMARY | 2020-05-01 13:06 | XMS REPORT | Summary of Care ---
Author Author [facility] Organization [facility] Address Unknown Phone Unavailable Care Team Providers Care Shaft Tender Name Role Phone JC PERALTA, DR. Mane SIMS PCP Encounter ORM/OCN TORRES Leyva [id number] Date(s): 04/01/17 - 04/01/[address] [address] Discharge Disposition: Home - Attending Physician: TODD PADRON MD Admitting Physician: TODD PADRON MD Referring Physician: TODD PADRON MD Vital Signs No data available for this section Problem List No data available for this section Allergies, Adverse Reactions, Alerts No Known Allergies Medications A DISCHARGED Medications 0, 0, 10/03/07 12:05:16 EST, 17AMBINDER, Constant Indicator Start Date: 10/03/07 Status: Ordered aspirin 325, mg, PO, QDAY, 947, 0, 0, 08/03/06 14:28:50 EDT, current medication from ano ther provider, Constant Indicator Start Date: 08/03/06 Status: Ordered Crestor 10, mg, PO, QDAY, 0, 0, 0, 10/03/07 12:10:36 EST, current medication from anothe r provider, Constant Indicator Start Date: 10/03/07 Status: Ordered Flagyl 500, mg, PO, TID, 01189, 0, 0, 10/03/07 12:07:07 EST, current medication from an other provider, Constant Indicator Start Date: 10/03/07 Status: Ordered Florastor 250 mg oral capsule 250, mg, 1, CAP, PO, TID, 36375, 0, 0, 10/03/07 12:15:11 EST, current medication from another provider, Constant Indicator Start Date: 10/03/07 Status: Ordered fluconazole 200, mg, PO, QDAY, 0, 0, 0, 10/03/07 12:07:35 EST, current medication from [facility] er provider, Constant Indicator Start Date: 10/03/07 Status: Ordered hydrochlorothiazide 25, mg, PO, QDAY, 0, 0, 0, 10/03/07 12:09:15 EST, current medication from [facility] provider, Constant Indicator Start Date: 10/03/07 Status: Ordered Lopressor 25, mg, PO, BID, 48, 0, 0, 10/03/07 12:09:40 EST, current medication from [facility] provider, Constant Indicator Start Date: 10/03/07 Status: Ordered nicotine 14 mg/24 hr transdermal film, extended release 1, Patch, Transdermal, QDAY, 0, 0, 0, 10/03/07 12:18:32 EST, current medication from another provider, Constant Indicator Start Date: 10/03/07 Status: Ordered PERcocet 5/325 See Instructions, 0, 0, 10/03/07 12:05:36 EST, one - two tabs every six hours as needed for pain, Print MONE Number, current medication from another provider, 10 [id number], Constant Indicator Start Date: 10/03/07 Status: Ordered potassium chloride 40, mEq, PO, QDAY, 0, 0, 0, 10/03/07 12:10:15 EST, current medication from [facility] provider, Constant Indicator Start Date: 10/03/07 Status: Ordered Rocephin 1 gm/50 ml intravenous solution 1, GM, 50, mL, IV, QDAY, 0, 700, mL, 0, 0, 10/03/07 12:19:11 EST, current medica tion from another provider, Constant Indicator, 0 Start Date: 10/03/07 Stop Date: 10/17/07 Status: Ordered Results No data available for [...]
--- OUTSIDE RECORDS SUMMARY | 2020-05-01 13:06 | XMS REPORT | Summary of Care ---
Author Author [facility] Organization [facility] Address Unknown Phone Unavailable Care Team Providers Care Polishing Machine Operator Name Role Phone JC PERALTA, DR. ANGELA SIMS PCP [phone] Encounter ORM/OCN TORRES Leyva [id number] Date(s): 04/06/19 - 04/06/[address] [address]- Discharge Disposition: Home - Attending Physician: TODD [...] Reflux Start Date: 08/02/18 Status: Ordered Results CHEMISTRY Most recent to 1 oldest [Reference Range]: Creatinine POC 0.8 mg/dL 1 [0.6-1.3 mg/dL] (04/06/19 1:47 PM) 1Result Comment: Meter: [id number]~Director Business: [id number] Salma Blackwell Immunizations No data available for this section Procedures No data available for this section Social History No data available for this section Functional Status No data available for this section Assessment and Plan No data available for this section Hospital Discharge Instructions No data available for this section
--- OUTSIDE RECORDS SUMMARY | 2020-05-01 13:06 | XMS REPORT | Summary of Care ---
Author Author [facility] Organization [facility] Address Unknown Phone Unavailable Care Team Providers Care Java Engineer Name Role Phone JC PERALTA, DR. Rony SIMS PCP Encounter ORM/OCN TORRES Leyva [id number] Date(s): 07/11/15 - 07/11/[address] [address] Discharge Disposition: Home - Attending Physician: LEVI [...] Status: Ordered Flagyl 500, mg, PO, TID, 42938, 0, 0, 10/03/07 12:07:07 EST, current medication from an other provider, Constant Indicator Start Date: 10/03/07 Status: Ordered Florastor 250 mg oral capsule 250, mg, 1, CAP, PO, TID, 16752, 0, 0, 10/03/07 12:15:11 EST, current medication from another provider, Constant Indicator Start Date: 10/03/07 Status: Ordered fluconazole 200, mg, PO, QDAY, 0, 0, 0, 10/03/07 12:07:35 EST, current medication from [facility] er provider, Constant Indicator Start Date: 10/03/07 Status: Ordered hydrochlorothiazide 25, mg, PO, QDAY, 0, 0, 0, 10/03/07 12:09:15 EST, current medication from [facility], Constant Indicator Start Date: 10/03/07 Status: Ordered Lopressor 25, mg, PO, BID, 48, 0, 0, 10/03/07 12:09:40 EST, current medication from [facility], Constant Indicator Start Date: 10/03/07 Status: [...] Number, current medication from another provider, 10 [id number], Constant Indicator Special Instructions: one - two tabs every six hours as needed for pain Start Date: 10/03/07 Status: Ordered potassium chloride 40, mEq, PO, QDAY, 0, 0, 0, 10/03/07 12:10:15 EST, current medication from [facility] er provider, Constant Indicator Start Date: 10/03/07 [...]
--- OUTSIDE RECORDS SUMMARY | 2020-05-01 13:06 | XMS REPORT | Summary of Care ---
Author Author [facility] Organization [facility] Address Unknown Phone Unavailable Care Team Providers Care Casting Machine Control Board Operator Name Role Phone JC PERALTA, DR. Mane SIMS PCP Encounter ORM/OCN TORRES Gordon [id number] Date(s): 04/12/17 - 04/12/[address] [address] Discharge Disposition: Home - Attending Physician: CANDICE ATKINSON MD Admitting Physician: CANDICE ATKINSON MD Referring Physician: TODD PADRON MD Vital Signs Most recent to 1 oldest [Reference Range]: Vital Signs Post procedure Status/Type (04/12/17 1:00 PM) Temperature 98 DegF [96.8-99.7 DegF] (04/12/17 1:00 PM) Temp Method Oral (04/12/17 1:00 PM) Heart Rate 64 bpm (04/12/17 5:00 PM) Heart Rate Location Auto BP (04/12/17 1:00 PM) Respiratory Rate 18 br/min [14-20 br/min] (04/12/17 5:00 PM) Blood Pressure 181/54 mmHg [90-180/50-90 mmHg] *HI* (04/12/17 5:00 PM) NIBP MAP 86 mmHg (04/12/17 5:00 PM) NIBP MAP Calc 96 (04/12/17 5:00 PM) BP Location Arm, left (04/12/17 1:00 PM) Problem List No data available for this section Allergies, Adverse Reactions, Alerts Substance Reaction Severity Status lidocaine Active Medications atorvastatin 10 mg oral tablet 1 TAB, PO, Daily, 0 Refill(s) Start Date: 04/12/17 Status: Ordered glipiZIDE 5 mg oral tablet 1 TAB, PO, Daily, 0 Refill(s) Start Date: 04/12/17 Status: Ordered levothyroxine 125 mcg (0.125 mg) oral tablet = 1 TAB, PO, Daily, 0 Refill(s) Start Date: 04/12/17 Status: Ordered losartan 100 mg oral tablet = 1 TAB, PO, Daily, 0 Refill(s) Start Date: 04/12/17 Status: Ordered metFORMIN 500 mg oral tablet 1 TAB, PO, Daily, 0 Refill(s) Start Date: 04/12/17 Status: Ordered Metoprolol Tartrate 50 mg oral tablet 1 TAB, PO, BID (2 times a day), 0 Refill(s) Start Date: 04/12/17 Status: Ordered traMADol 50 mg oral tablet 1 TAB, PO, Q6H (Every 6 hours), PRN as needed for pain, 0 Refill(s) Start Date: 04/12/17 Status: Ordered Results HEMATOLOGY Most recent to 1 oldest [Reference Range]: WBC [5.4-10.8 7.1 x10'3/microL x10'3/microL] (04/12/17 9:14 AM) RBC [3.79-5.19 4.39 x10'6/microL x10'6/microL] (04/12/17 9:14 AM) Hgb [11.2-15.7 g/dL] 13.7 g/dL (04/12/17 9:14 AM) Hct [34.1-44.9 %] 41.8 % (04/12/17 9:14 AM) Platelet [126-432 192 x10'3/microL x10'3/microL] (04/12/17 9:14 AM) MCV [83.7-99.5 fL] 95.2 fL (04/12/17 9:14 AM) MCH [27.6-33.1 pg] 31.2 pg (04/12/17 9:14 AM) MCHC [31.3-34.9 32.8 g/dL g/dL] (04/12/17 9:14 AM) RDW [38.6-50.2 fL] 43.8 fL (04/12/17 9:14 AM) MPV [9.2-12.2 fL] 11.6 fL (04/12/17 9:14 AM) Abs NRBCs [0.00-0.01 0.00 x10'3/microL x10'3/microL] (04/12/17 9:14 AM) Neutrophils 51.4 % [42.7-77.1 %] (04/12/17 9:14 AM) Lymphs [12.1-45.3 %] 36.9 % (04/12/17 9:14 AM) Monocytes % 7.5 % [4.4-12.5 %] (04/12/17 9:14 AM) Eosinophil % 2.8 % [0.0-5.6 %] (04/12/17 9:14 AM) Basophil % [0.0-1.0 0.8 % %] (04/12/17 9:14 AM) Neutro Absolute 3.6 x10'3/microL [1.4-6.8 (04/12/17 9:14 AM) x10'3/microL] Lymph Absolute 2.6 x10'3/microL [0.6-3.2 (04/12/17 9:14 AM) x10'3/microL] Gila Absolute 0.5 x10'3/microL [0.2-0.9 (04/12/17 9:14 AM) x10'3/microL] Eos Absolute 0.2 x10'3/microL [0.0-0.6 (04/12/17 9:14 AM) x10'3/microL] Basophil Absolute 0.1 x10'3/microL [0.0-0.1 (04/12/17 9:14 AM) x10'3/microL] Immature 0.04 x10'3/microL Granulocytes Abs *HI* [0.01-0.03 (04/12/17 9:14 AM) x10'3/microL] Immature 0.6 % Granulocytes % (04/12/17 9:14 AM) [0.0-1.0 %] NRBC [0.0-0.2 0.0 /100WBC /100WBC] (04/12/17 9:14 AM) PT [11.0-15.2 12.8 second second] (04/12/17 9:14 AM) INR 1.0 *NA* (04/12/17 9:14 AM) PTT [22.8-36.3 24.3 second second] (04/12/17 9:14 AM) CHEMISTRY Most recent to 1 oldest [Reference Range]: Sodium [136-145 140 mmol/L mmol/L] (04/12/17 9:14 AM) Potassium [3.5-5.1 4.7 mmol/L mmol/L] (04/12/17 9:14 AM) Chloride [98-107 100 mmol/L mmol/L] (04/12/17 9:14 AM) CO2 [22-29 mmol/L] 26 mmol/L (04/12/17 9:14 AM) AGAP [3-20] 14 (04/12/17 9:14 AM) Glucose [70-99 223 mg/dL mg/dL] *HI* (04/12/17 9:14 AM) Glucose Level (POC) 188 mg/dL 1 [70-100 mg/dL] *HI* (04/12/17 1:15 PM) BUN [8-23 mg/dL] 35 mg/dL *HI* (04/12/17 9:14 AM) Creatinine 0.72 mg/dL [0.50-0.90 mg/dL] (04/12/17 9:14 AM) Calcium [8.8-10.2 9.8 mg/dL mg/dL] (04/12/17 9:14 AM) Est CrCl (CG) 56.7 mL/min 2 (04/12/17 9:14 AM) GFR (CKD-EPI) 82.8 mL/min/1.73 m2 3 *NA* (04/12/17 9:14 AM) 1Result Comment: Meter: [id number]~[employer]: [phone] Sammy Lopezn 2Result Comment: Estimated Creatinine Clearance calculated based [...]
--- OUTSIDE RECORDS SUMMARY | 2020-05-01 13:06 | XMS REPORT | Summary of Care ---
Author Author [facility] Organization [facility] Address Unknown Phone Unavailable Care Team Providers Care Green Pipefitter Name Role Phone JC PERALTA, DR. ANGELA SIMS PCP [phone] Encounter ORM/OCN TORRES [place] [id number] Date(s): 08/30/18 - 08/30/[address] [address]- Discharge Disposition: Home - Attending Physician: JC [...] to 1 oldest [Reference Range]: WBC [5.4-10.8 5.0 x10'3/microL x10'3/microL] *LOW* (08/30/18 12:10 PM) RBC [3.79-5.19 3.56 x10'6/microL x10'6/microL] *LOW* (08/30/18 12:10 PM) Hgb [11.2-15.7 g/dL] 9.9 g/dL *LOW* (08/30/18 12:10 PM) Hct [34.1-44.9 %] 33.8 % *LOW* (08/30/18 12:10 PM) Platelet [126-432 276 x10'3/microL x10'3/microL] (08/30/18 12:10 PM) MCV [83.7-99.5 fL] 94.9 fL (08/30/18 12:10 PM) MCH [27.6-33.1 pg] 27.8 pg (08/30/18 12:10 PM) MCHC [31.3-34.9 29.3 g/dL g/dL] *LOW* (08/30/18 12:10 PM) RDW [38.6-50.2 fL] 49.2 fL (08/30/18 12:10 PM) MPV [9.2-12.2 fL] 10.0 fL (08/30/18 12:10 PM) Abs NRBCs [0.00-0.01 0.00 x10'3/microL x10'3/microL] (08/30/18 12:10 PM) Neutrophils 63.1 % [42.7-77.1 %] (08/30/18 12:10 PM) Lymphs [12.1-45.3 %] 26.0 % (08/30/18 12:10 PM) Monocytes % 6.9 % [4.4-12.5 %] (08/30/18 12:10 PM) Eosinophil % 3.0 % [0.0-5.6 %] (08/30/18 12:10 PM) Basophil % [0.0-1.0 0.4 % %] (08/30/18 12:10 PM) Neutro Absolute 3.2 x10'3/microL [1.4-6.8 (08/30/18 12:10 PM) x10'3/microL] Lymph Absolute 1.3 x10'3/microL [0.6-3.2 (08/30/18 12:10 PM) x10'3/microL] Gaston Absolute 0.4 x10'3/microL [0.2-0.9 (08/30/18 12:10 PM) x10'3/microL] Eos Absolute 0.2 x10'3/microL [0.0-0.6 (08/30/18 12:10 PM) x10'3/microL] Basophil Absolute 0.0 x10'3/microL [0.0-0.1 (08/30/18 12:10 PM) x10'3/microL] Immature 0.03 x10'3/microL Granulocytes Abs (08/30/18 12:10 PM) [0.01-0.03 x10'3/microL] Immature 0.6 % Granulocytes % (08/30/18 12:10 PM) [0.0-1.0 %] NRBC [0.0-0.2 0.0 /100WBC /100WBC] (08/30/18 12:10 PM) CHEMISTRY Most recent to 1 oldest [Reference Range]: Sodium [136-145 145 mmol/L mmol/L] (08/30/18 12:10 PM) Potassium [3.5-5.1 4.5 mmol/L mmol/L] (08/30/18 12:10 PM) Chloride [98-107 106 mmol/L mmol/L] (08/30/18 12:10 PM) CO2 [22-29 mmol/L] 25 mmol/L (08/30/18 12:10 PM) AGAP [3-20] 14 (08/30/18 12:10 PM) Glucose [70-99 94 mg/dL mg/dL] (08/30/18 12:10 PM) BUN [8-23 mg/dL] 13 mg/dL (08/30/18 12:10 PM) Creatinine 0.63 mg/dL [0.50-0.90 mg/dL] (08/30/18 12:10 PM) Calcium [8.8-10.2 9.5 mg/dL mg/dL] (08/30/18 12:10 PM) Est CrCl (CG) 63.8 mL/min 1 (08/30/18 12:10 PM) GFR (CKD-EPI) 88.0 mL/min/1.73 m2 2 *NA* (08/30/18 12:10 PM) Albumin Level 3.9 g/dL [3.5-5.2 g/dL] (08/30/18 12:10 PM) Total Protein 6.8 g/dL [6.4-8.3 g/dL] (08/30/18 12:10 PM) Alk Phos [35-105 83 Units/L Units/L] (08/30/18 12:10 PM) AST [10-33 Units/L] 20 Units/L (08/30/18 12:10 PM) ALT(SGPT) [10-33 11 Units/L Units/L] (08/30/18 12:10 PM) Bili Total [<=1.0 0.4 mg/dL mg/dL] (08/30/18 12:10 PM) 1Result Comment: Estimated Creatinine Clearance calculated [...]
--- OUTSIDE RECORDS SUMMARY | 2020-05-01 13:06 | XMS REPORT | Summary of Care ---
Author Author [facility] Organization [facility] Address Unknown Phone Unavailable Care Team Providers Care Heating Systems Installer Name Role Phone TOAN PERALTA, DR. Omi VELAZCO PCP [phone] Encounter ORM/OCN TORRES [place] [id number] Date(s): 04/22/15 - 04/22/[address] [address] [place] Discharge Disposition: Home - Attending Physician: [...] Status: Ordered Flagyl 500, mg, PO, TID, 79984, 0, 0, 10/03/07 12:07:07 EST, current medication from an other provider, Constant Indicator Start Date: 10/03/07 Status: Ordered Florastor 250 mg oral capsule 250, mg, 1, CAP, PO, TID, 67298, 0, 0, 10/03/07 12:15:11 EST, current medication from another provider, Constant Indicator Start Date: 10/03/07 Status: Ordered fluconazole 200, mg, PO, QDAY, 0, 0, 0, 10/03/07 12:07:35 EST, current medication from [facility] provider, Constant Indicator Start Date: 10/03/07 Status: Ordered hydrochlorothiazide 25, mg, PO, QDAY, 0, 0, 0, 10/03/07 12:09:15 EST, current medication from [facility] provider, Constant Indicator Start Date: 10/03/07 Status: Ordered Lopressor 25, mg, PO, BID, 48, 0, 0, 10/03/07 12:09:40 EST, current medication from [facility] provider, Constant Indicator Start Date: [...] Number, current medication from another provider, 10 4137, Constant Indicator Special Instructions: one - two tabs every six hours as needed for pain Start Date: 10/03/07 Status: Ordered potassium chloride 40, mEq, PO, QDAY, 0, 0, 0, 10/03/07 12:10:15 EST, current medication from [facility] provider, Constant Indicator Start Date: 10/03/07 [...]
--- OUTSIDE RECORDS SUMMARY | 2020-05-01 13:06 | XMS REPORT | Summary of Care ---
Author Author [facility] Organization [facility] Address Unknown Phone Unavailable Care Team Providers Care System Auditor Name Role Phone JC PERALTA, DR. Mane SIMS PCP TOAN PERALTA, DR. Omi VELAZCO PCP UNASSIGNED MD, HARMEETP PCP Unavailable LAVERN PERALTA, DR. Fahad HAINES PCP Encounter [facility] [id number] Date(s): 08/12/17 - 08/14/[address] Discharge Diagnosis: Hyperglycemia Discharge Diagnosis: CHF exacerbation Discharge Diagnosis: Hypoxia Discharge Disposition: Home - 01 Attending Physician: ANUSHA FLORES MD Admitting Physician: VANCE SYED MD Referring Physician: VANCE SYED MD Vital Signs Most recent to 1 oldest [Reference Range]: Vital Signs Routine Assessment Status/Type (08/14/17 8:00 AM) Temperature 97.6 DegF [96.8-99.7 DegF] (08/14/17 8:00 AM) Temp Method Oral (08/14/17 8:00 AM) Heart Rate 69 bpm (08/14/17 10:28 AM) Respiratory Rate 18 br/min [15-20 br/min] (08/14/17 8:00 AM) Blood Pressure 138/56 mmHg [90-180/50-90 mmHg] (08/14/17 10:28 AM) NIBP MAP 77 mmHg (08/14/17 10:28 AM) NIBP MAP Calc 83 (08/14/17 10:28 AM) Heart Rhythm Sinus/atrial rhythm Interpretation (08/14/17 8:00 AM) Vital Signs Note Patient refused vital signs for 11...wants them done at 3am. (08/13/17 11:00 PM) Problem List Condition Effective Dates Status Health Status Linda gonzalez PAD (peripheral Active artery disease)(Confirmed) Allergies, Adverse Reactions, Alerts Substance Reaction Severity Status lidocaine Active Medications aspirin 325 mg oral delayed release tablet 1 TAB, PO, Daily, # 30 TAB, 0 Refill(s), Indication: Clot Prevention Start Date: 08/14/17 Status: Ordered atorvastatin 10 mg oral tablet 1 TAB, PO, Daily, 0 Refill(s) Start Date: 04/12/17 Status: Ordered Ceftin 500 mg oral tablet 1 TAB, PO, BID (2 times a day), x 5 day, # 10 TAB, 0 Refill(s), Indication: Bact erial Infection Start Date: 08/14/17 Stop Date: 08/19/17 Status: Ordered clopidogrel 75 mg oral tablet [...] to 1 oldest [Reference Range]: WBC [4.8-10.8 3.9 x10'3/microL x10'3/microL] *LOW* (08/14/17 6:24 AM) RBC [4.20-5.40 3.66 x10'6/microL x10'6/microL] *LOW* (08/14/17 6:24 AM) Hgb [12.0-16.0 g/dL] 10.8 g/dL *LOW* (08/14/17 6:24 AM) Hct [36.0-47.0 %] 33.5 % *LOW* (08/14/17 6:24 AM) Platelet [130-400 150 x10'3/microL x10'3/microL] (08/14/17 6:24 AM) MCV [81.0-99.0 fL] 91.5 fL (08/14/17 6:24 AM) MCH [27.0-34.0 pg] 29.5 pg (08/14/17 6:24 AM) MCHC [33.4-35.5 32.2 g/dL g/dL] *LOW* (08/14/17 6:24 AM) RDW [36.4-46.3 fL] 46.4 fL *HI* (08/14/17 6:24 AM) MPV [9.4-12.3 fL] 11.2 fL (08/14/17 6:24 AM) Neutrophils 54.2 % [47.0-75.0 %] (08/14/17 6:24 AM) Lymphs [14.0-40.0 %] 36.6 % (08/14/17 6:24 AM) Monocytes % 5.6 % [5.0-10.0 %] (08/14/17 6:24 AM) Eosinophil % 2.8 % [0.0-6.0 %] (08/14/17 6:24 AM) Basophil % [0.0-1.5 0.5 % %] (08/14/17 6:24 AM) Neutro Absolute 2.1 x10'3/microL [1.7-6.7 (08/14/17 6:24 AM) x10'3/microL] Lymph Absolute 1.4 x10'3/microL [0.8-3.0 (08/14/17 6:24 AM) x10'3/microL] Tyrrell Absolute 0.2 x10'3/microL [0.2-1.1 (08/14/17 6:24 AM) x10'3/microL] Eos Absolute 0.1 x10'3/microL [0.0-0.6 (08/14/17 6:24 AM) x10'3/microL] Basophil Absolute 0.0 x10'3/microL [0.0-0.1 (08/14/17 6:24 AM) x10'3/microL] Immature 0.0 x10'3/microL Granulocytes Abs (08/14/17 6:24 AM) [0.0-0.5 x10'3/microL] Immature 0.3 % Granulocytes % (08/14/17 6:24 AM) [0.0-1.0 %] PT [11.5-14.9 13.9 second second] (08/12/17 5:24 PM) INR [0.8-1.2] 1.1 (08/12/17 5:24 PM) PTT [22.4-38.6 32.7 second second] (08/12/17 5:24 PM) CHEMISTRY Most recent to 1 oldest [Reference Range]: Sodium [136-145 135 mmol/L mmol/L] *LOW* (08/14/17 6:24 AM) Potassium [3.5-5.1 4.3 mmol/L mmol/L] (08/14/17 6:24 AM) Chloride [98-107 98 mmol/L mmol/L] (08/14/17 6:24 AM) CO2 [22-32 mmol/L] 25 mmol/L (08/14/17 6:24 AM) AGAP [6-16] 12 (08/14/17 6:24 AM) Glucose [70-99 295 mg/dL mg/dL] *HI* (08/14/17 6:24 AM) Glucose Level (POC) 339 mg/dL 1 [70-100 mg/dL] *HI* (08/14/17 7:30 AM) BUN [5.0-21.0 mg/dL] 29.0 mg/dL *HI* (08/14/17 6:24 AM) Creatinine 0.83 mg/dL [0.60-1.20 mg/dL] (08/14/17 6:24 AM) Calcium [8.8-10.2 8.9 mg/dL mg/dL] (08/14/17 6:24 AM) Est CrCl (CG) 49.2 mL/min 2 (08/14/17 6:24 AM) GFR (CKD-EPI) 69.7 mL/min/1.73 m2 3 *NA* (08/14/17 6:24 AM) Albumin/Globulin 0.9 g/dL Ratio [1.1-2.2 g/dL] *LOW* (08/12/17 5:24 PM) Albumin Level 3.6 g/dL [3.5-5.2 g/dL] (08/12/17 5:24 PM) Total Protein 7.7 g/dL [6.4-8.3 g/dL] (08/12/17 5:24 PM) Globulin [1.9-3.9 4.1 g/dL g/dL] *HI* (08/12/17 5:24 PM) Hgb A1c [4.8-6.0 %] 10.3 % *HI* (08/13/17 5:56 AM) Estimated Average 249 mg/dL Glucose *NA* (08/13/17 5:56 AM) Magnesium [1.60-2.40 2.00 mg/dL mg/dL] (08/12/17 5:24 PM) Phos [2.5-4.5 mg/dL] 1.7 mg/dL *LOW* (08/12/17 5:24 PM) Troponin T <0.01 ng/mL *NA* (08/13/17 5:56 AM) pro-BNP [0-900 1557 pg/mL pg/mL] *HI* (08/12/17 5:24 PM) Cholesterol [0-200 104 mg/dL mg/dL] (08/13/17 5:56 AM) HDL [>=40 mg/dL] 13 mg/dL *LOW* (08/13/17 5:56 AM) LDL Calculated 29 mg/dL *NA* (08/13/17 5:56 AM) LDL/HDL Ratio 2.2 *NA* (08/13/17 5:56 AM) Chol/HDL Ratio 8.0 *NA* (08/13/17 5:56 AM) VLDL Calculated 62 mg/dL *NA* (08/13/17 5:56 AM) Triglycerides [0-200 311 mg/dL mg/dL] *HI* (08/13/17 5:56 AM) Alk Phos [35-105 101 Units/L Units/L] (08/12/17 5:24 PM) AST [5-40 Inter. 41 Inter. Units/L Units/L] *HI* (08/12/17 5:24 PM) ALT(SGPT) [10-45 45 Inter. Units/L Inter. Units/L] (08/12/17 5:24 PM) Bili Total [0.3-1.2 1.2 mg/dL mg/dL] (08/12/17 5:24 PM) Lactic Acid Lvl 1.6 mmol/L [0.5-2.2 mmol/L] (08/12/17 5:24 PM) Hydroxybutyrate 0.3 mmol/L [0.0-0.2 mmol/L] *HI* (08/12/17 5:24 PM) 1Result Comment: Meter: [id number]~Lead Designer: [id number] SAMI TEIXEIRA 2Result Comment: Estimated Creatinine Clearance calculated based [...] recent to 1 oldest [Reference Range]: TSH [0.27-4.20 7.87 microInter.Units/mL microInter.Units/mL] *HI* (08/12/17 5:24 PM) T4 Free [0.58-1.64 0.83 ng/dL ng/dL] (08/13/17 5:56 AM) Immunology/Serology Most recent to 1 oldest [Reference Range]: Influenza A Ag [Neg Neg for Flu A for Flu A] (08/12/17 5:24 PM) Influenza B Ag [Neg Neg for Flu B for Flu B] (08/12/17 5:24 PM) Source CAN CLEANER Swab (08/12/17 5:24 PM) URINE Most recent to 1 oldest [Reference Range]: UA Color Yellow (08/12/17 7:08 PM) UA Appear [Clear] Hazy *ABN* (08/12/17 7:08 PM) UA pH [5.0-8.0] 5.5 (08/12/17 7:08 PM) UA Spec Grav 1.015 [1.005-1.030] (08/12/17 7:08 PM) UA Glucose 4+ [Negative] *ABN* (08/12/17 7:08 PM) UA Bili [Negative] Negative (08/12/17 7:08 PM) UA Ketones Trace [Negative] *ABN* (08/12/17 7:08 PM) UA Blood [Negative] 1+ *ABN* (08/12/17 7:08 PM) UA Protein 2+ [Negative] *ABN* (08/12/17 7:08 PM) UA Nitrite Negative [Negative] (08/12/17 7:08 PM) UA Leuk Est 3+ [Negative] *ABN* (08/12/17 7:08 PM) UA Urobilinogen 1+ [Normal] *ABN* (08/12/17 7:08 PM) UA Spec Type Clean Catch (08/12/17 7:08 PM) UA WBC [0-6 /hpf] 47 /hpf *HI* (08/12/17 7:08 PM) UA RBC [0-3 /hpf] 2 /hpf (08/12/17 7:08 PM) UA Bacteria [Trace] 4+ *ABN* (08/12/17 7:08 PM) UA Mucous [1+] 2+ *ABN* (08/12/17 7:08 PM) UA WBC Clumps [None] Present *ABN* (08/12/17 7:08 PM) UA Squamous Trace Epithelial [Few] (08/12/17 7:08 PM) Culture? Yes (08/12/17 7:08 PM) Immunizations No data available for this section Procedures No data available for this section Social History No data available for this section Functional Status No data available for this section Assessment and Plan No data available for this section Hospital Discharge Instructions No data available for this section
--- OUTSIDE RECORDS SUMMARY | 2020-05-01 13:06 | XMS REPORT | Summary of Care ---
Author Author [facility] Organization [facility] Address Unknown Phone Unavailable Care Team Providers Care Gas Singer Name Role Phone JC PERALTA, DR. Rony SIMS PCP Encounter ORM/OCN TORRES [place] [id number] Date(s): 11/25/15 - 12/25/[address] [address] [place] Final: Type 2 diabetes mellitus without complications Discharge Disposition: Home - Attending Physician: LEVI [...] Status: Ordered Flagyl 500, mg, PO, TID, 37207, 0, 0, 10/03/07 12:07:07 EST, current medication from an other provider, Constant Indicator Start Date: 10/03/07 Status: Ordered Florastor 250 mg oral capsule 250, mg, 1, CAP, PO, TID, 60662, 0, 0, 10/03/07 12:15:11 EST, current medication from another provider, Constant Indicator Start Date: 10/03/07 Status: Ordered fluconazole 200, mg, PO, QDAY, 0, 0, 0, 10/03/07 12:07:35 EST, current medication from [facility] provider, Constant Indicator Start Date: 10/03/07 Status: Ordered hydrochlorothiazide 25, mg, PO, QDAY, 0, 0, 0, 10/03/07 12:09:15 EST, current medication from [facility] provider, Constant Indicator Start Date: 10/03/07 Status: Ordered Lopressor 25, mg, PO, BID, 48, 0, 0, 10/03/07 12:09:40 EST, current medication from [facility] provider, Constant Indicator Start Date: [...] Number, current medication from another provider, 10 4844, Constant Indicator Special Instructions: one - two tabs every six hours as needed for pain Start Date: 10/03/07 Status: Ordered potassium chloride 40, mEq, PO, QDAY, 0, 0, 0, 10/03/07 12:10:15 EST, current medication from [facility] provider, Constant Indicator Start [...]
--- OUTSIDE RECORDS SUMMARY | 2020-05-01 13:06 | XMS REPORT | Summary of Care ---
Author Author [facility] Organization [facility] Address Unknown Phone Unavailable Care Team Providers Care Rapid Extractor Operator Name Role Phone JC PERALTA, DR. Mane SIMS PCP Encounter ORM/OCN TORRES [place] [id number] Date(s): 03/04/17 - 03/04/[address] [address] Discharge Disposition: Home - Attending Physician: LEVI [...] Status: Ordered Flagyl 500, mg, PO, TID, 10903, 0, 0, 10/03/07 12:07:07 EST, current medication from an other provider, Constant Indicator Start Date: 10/03/07 Status: Ordered Florastor 250 mg oral capsule 250, mg, 1, CAP, PO, TID, 79710, 0, 0, 10/03/07 12:15:11 EST, current medication from another provider, Constant Indicator Start Date: 10/03/07 Status: Ordered fluconazole 200, mg, PO, QDAY, 0, 0, 0, 10/03/07 12:07:35 EST, current medication from [facility] provider, Constant Indicator Start Date: 10/03/07 Status: Ordered hydrochlorothiazide 25, mg, PO, QDAY, 0, 0, 0, 10/03/07 12:09:15 EST, current medication from [facility] provider, Constant Indicator Start Date: 10/03/07 Status: Ordered Lopressor 25, mg, PO, BID, 48, 0, 0, 10/03/07 12:09:40 EST, current medication from [facility] provider, Constant Indicator Start Date: 10/03/07 Status: [...] Number, current medication from another provider, 10 4174, Constant Indicator Start Date: 10/03/07 Status: Ordered potassium chloride 40, mEq, PO, QDAY, 0, 0, 0, 10/03/07 12:10:15 EST, current medication from [facility] provider, Constant Indicator Start [...]
--- OUTSIDE RECORDS SUMMARY | 2020-05-01 13:06 | XMS REPORT | Summary of Care ---
Author Author [facility] Organization [facility] Address Unknown Phone Unavailable Care Team Providers Care Skidder Driver Name Role Phone JC PERALTA, DR. Mane SIMS PCP Encounter ORM/OCN TORRES [place] [id number] Date(s): 03/09/17 - 03/12/[address] [address] Final: Encounter for other specified aftercare Final: Benign paroxysmal vertigo, unspecified ear Discharge Disposition: Home - Attending Physician: LEVI [...] Status: Ordered Flagyl 500, mg, PO, TID, 53053, 0, 0, 10/03/07 12:07:07 EST, current medication from an other provider, Constant Indicator Start Date: 10/03/07 Status: Ordered Florastor 250 mg oral capsule 250, mg, 1, CAP, PO, TID, 40824, 0, 0, 10/03/07 12:15:11 EST, current medication from another provider, Constant Indicator Start Date: 10/03/07 Status: Ordered fluconazole 200, mg, PO, QDAY, 0, 0, 0, 10/03/07 12:07:35 EST, current medication from [facility] provider, Constant Indicator Start Date: 10/03/07 Status: Ordered hydrochlorothiazide 25, mg, PO, QDAY, 0, 0, 0, 10/03/07 12:09:15 EST, current medication from [facility] provider, Constant Indicator Start Date: 10/03/07 Status: Ordered Lopressor 25, mg, PO, BID, 48, 0, 0, 10/03/07 12:09:40 EST, current medication from [facility] provider, Constant Indicator Start Date: 10/03/07 Status: [...] Number, current medication from another provider, 10 2410, Constant Indicator Start Date: 10/03/07 Status: Ordered potassium chloride 40, mEq, PO, QDAY, 0, 0, 0, 10/03/07 12:10:15 EST, current medication from [facility] provider, Constant Indicator Start Date: 10/03/07 [...]
--- OUTSIDE RECORDS SUMMARY | 2020-05-01 13:06 | XMS REPORT | Summary of Care ---
Author Author [facility] Organization [facility] Address Unknown Phone Unavailable Care Team Providers Care Support Service Tech Name Role Phone JC PERALTA, DR. ANGELA SIMS PCP Encounter [facility] TORRES [place] [id number] Date(s): 08/23/18 - 08/23/[address] [address] Discharge Disposition: Home - Attending Physician: TODD DIAZ MD Admitting Physician: TODD DIAZ MD Referring Physician: TODD DIAZ MD Vital Signs No data available for [...] recent to 1 oldest [Reference Range]: WBC [3.40-10.10 3.87 x10'3/microL x10'3/microL] (08/23/18 7:24 PM) RBC [4.00-5.30 2.65 x10'6/microL x10'6/microL] *LOW* (08/23/18 7:24 PM) Hgb [11.6-15.4 g/dL] 7.6 g/dL *LOW* (08/23/18 7:24 PM) Hct [35.9-46.1 %] 26.0 % *LOW* (08/23/18:24 PM) Platelet [126-432 215 x10'3/microL x10'3/microL] (08/23/18:24 PM) MCV [83.7-99.5 fL] 98.1 fL (08/23/18:24 PM) MCH [27.6-33.1 pg] 28.7 pg (08/23/18:24 PM) MCHC [31.3-34.9 29.2 g/dL g/dL] *LOW* (08/23/18:24 PM) RDW [38.6-50.2 fL] 49.0 fL (08/23/18:24 PM) MPV [9.2-12.2 fL] 10.8 fL (08/23/18 7:24 PM) Neutrophils 52.1 % [42.7-77.1 %] (08/23/18:24 PM) Lymphs [12.1-45.3 %] 31.8 % (08/23/18 7:24 PM) Monocytes % 11.4 % [4.4-12.5 %] (08/23/18:24 PM) Eosinophil % 3.6 % [0.0-5.6 %] (08/23/18 7:24 PM) Basophil % [0.0-1.0 0.3 % %] (08/23/18 7:24 PM) Neutro Absolute 2.0 x10'3/microL [1.4-6.8 (08/23/18 7:24 PM) x10'3/microL] Lymph Absolute 1.2 x10'3/microL [0.6-3.2 (08/23/18 7:24 PM) x10'3/microL] Winkler Absolute 0.4 x10'3/microL [0.2-0.9 (08/23/18 7:24 PM) x10'3/microL] Eos Absolute 0.1 x10'3/microL [0.0-0.6 (08/23/18 7:24 PM) x10'3/microL] Basophil Absolute 0.0 x10'3/microL [0.0-0.1 (08/23/18 7:24 PM) x10'3/microL] Immature 0.0300 x10'3/microL Granulocytes Abs (08/23/18 7:24 PM) [0.0000-0.0300 x10'3/microL] Immature 0.8 % Granulocytes % *HI* [0.0-0.5 %] (08/23/18 7:24 PM) CHEMISTRY Most recent to 1 oldest [Reference Range]: Sodium [136-145 146 mmol/L mmol/L] *HI* (08/23/18 7:24 PM) Potassium [3.5-5.1 4.1 mmol/L mmol/L] (08/23/18 7:24 PM) Chloride [98-107 109 mmol/L mmol/L] *HI* (08/23/18 7:24 PM) CO2 [22-29 mmol/L] 24 mmol/L (08/23/18 7:24 PM) AGAP [3-20] 13 (08/23/18 7:24 PM) Glucose [70-109 39 mg/dL 1 mg/dL] *CRIT* (08/23/18 7:24 PM) BUN [6-26 mg/dL] 9 mg/dL (08/23/18 7:24 PM) Creatinine 0.75 mg/dL [0.50-0.90 mg/dL] (08/23/18 7:24 PM) Calcium [8.8-10.2 9.2 mg/dL mg/dL] (08/23/18 7:24 PM) Est CrCl (CG) 53.6 mL/min 2 (08/23/18 7:24 PM) GFR (CKD-EPI) 78.2 mL/min/1.73 m2 3 *NA* (08/23/18 7:24 PM) Albumin/Globulin 1 Ratio *NA* (08/23/18 7:24 PM) Albumin Level 3.2 g/dL [3.5-5.2 g/dL] *LOW* (08/23/18 7:24 PM) Total Protein 6.3 g/dL [6.6-8.7 g/dL] *LOW* (08/23/18 7:24 PM) Globulin 3 *NA* (08/23/18 7:24 PM) Iron [37.0-145.0 35.0 mcg/dL mcg/dL] *LOW* (08/23/18 7:24 PM) Alk Phos [35-105 66 Units/L Units/L] (08/23/18 7:24 PM) AST [10-32 Units/L] 16 Units/L (08/23/18 7:24 PM) ALT(SGPT) [2-33 8 Units/L Units/L] (08/23/18 7:24 PM) Bili Total 0.20 mg/dL [0.10-1.20 mg/dL] (08/23/18 7:24 PM) 1Result Comment: Results called to Mane Diaz MD by [email or web address]. 08/23/2018 20:11:56 EST Results read back. 2Result Comment: Estimated Creatinine Clearance calculated based [...] Most recent to 1 oldest [Reference Range]: Ferritin [15.0-150.0 189.3 ng/mL ng/mL] *HI* (08/23/18 7:24 PM) Immunizations No data available for this section Procedures No data available for this section Social History No data available for this section Functional Status No data available for this section Assessment and Plan No data available for this section Hospital Discharge Instructions No data available for this section
--- OUTSIDE RECORDS SUMMARY | 2020-05-01 13:06 | XMS REPORT | Summary of Care ---
Author Author [facility] Address Unknown Phone Unavailable Care Team Providers Care Cigarette Filter Inspector Name Role Phone JC PERALTA, DR. ANGELA SIMS PCP Encounter ORM/OCN TORRES Leyva [id number] Date(s): 04/27/19 - 04/28/[address] [address]- Discharge Disposition: Home - Attending Physician: ERIC ALVARADO MD Admitting Physician: ERIC ALVARADO MD Referring Physician: TODD PADRON MD Vital Signs Most recent to 1 oldest [Reference Range]: Vital Signs Routine Assessment Status/Type (04/28/19 5:00 AM) Temperature 98.1 DegF [96.8-99.7 DegF] (04/27/19 1:45 PM) Temp Method Oral (04/27/19 1:45 PM) Heart Rate 75 bpm (04/28/19 1:00 PM) Heart Rate Location Auto BP, Continuous Early Childhood Teacher (04/27/19 6:00 PM) Respiratory Rate 21 br/min [15-20 br/min] *HI* (04/28/19 1:00 PM) Blood Pressure 123/77 mmHg [90-180/50-90 mmHg] (04/28/19 1:00 PM) NIBP MAP 83 mmHg (04/28/19 1:00 PM) NIBP MAP Calc 92 (04/28/19 1:00 PM) Blood Pressure 175/54 mmHg Invasive (04/27/19 5:29 PM) A-Line MAP 99 mmHg (04/27/19 5:29 PM) NIBP Method Automatic (04/27/19 6:00 PM) BP Location Arm, right (04/27/19 6:00 PM) BP Cuff Size Medium (04/27/19 6:00 PM) Heart Rhythm Sinus/atrial rhythm Interpretation (04/28/19 1:00 PM) Problem List Condition Effective Dates Status [...] lidocaine1 Non-therapeutic response to medications Severe Active Tylenol Active 1stated," doesnot work" Medications amLODIPine 10 [...] to 1 oldest [Reference Range]: WBC [5.4-10.8 4.5 x10'3/microL x10'3/microL] *LOW* (04/27/19 8:53 AM) RBC [3.79-5.19 4.28 x10'6/microL x10'6/microL] (04/27/19 8:53 AM) Hgb [11.2-15.7 g/dL] 13.0 g/dL (04/27/19 8:53 AM) Hct [34.1-44.9 %] 39.7 % (04/27/19 8:53 AM) Platelet [126-432 174 x10'3/microL x10'3/microL] (04/27/19 8:53 AM) MCV [83.7-99.5 fL] 92.8 fL (04/27/19 8:53 AM) MCH [27.6-33.1 pg] 30.4 pg (04/27/19 8:53 AM) MCHC [31.3-34.9 32.7 g/dL g/dL] (04/27/19 8:53 AM) RDW [38.6-50.2 fL] 43.4 fL (04/27/19 8:53 AM) MPV [9.2-12.2 fL] 10.5 fL (04/27/19 8:53 AM) Abs NRBCs [0.00-0.01 0.00 x10'3/microL x10'3/microL] (04/27/19 8:53 AM) Neutrophils 56.4 % [42.7-77.1 %] (04/27/19 8:53 AM) Lymphs [12.1-45.3 %] 33.0 % (04/27/19 8:53 AM) Monocytes % 7.1 % [4.4-12.5 %] (04/27/19 8:53 AM) Eosinophil % 2.4 % [0.0-5.6 %] (04/27/19 8:53 AM) Basophil % [0.0-1.0 0.7 % %] (04/27/19 8:53 AM) Neutro Absolute 2.5 x10'3/microL [1.4-6.8 (04/27/19 8:53 AM) x10'3/microL] Lymph Absolute 1.5 x10'3/microL [0.6-3.2 (04/27/19 8:53 AM) x10'3/microL] Gibson Absolute 0.3 x10'3/microL [0.2-0.9 (04/27/19 8:53 AM) x10'3/microL] Eos Absolute 0.1 x10'3/microL [0.0-0.6 (04/27/19 8:53 AM) x10'3/microL] Basophil Absolute 0.0 x10'3/microL [0.0-0.1 (04/27/19 8:53 AM) x10'3/microL] Immature 0.02 x10'3/microL Granulocytes Abs (04/27/19 8:53 AM) [0.01-0.03 x10'3/microL] Immature 0.4 % Granulocytes % (04/27/19 8:53 AM) [0.0-1.0 %] NRBC [0.0-0.2 0.0 /100WBC /100WBC] (04/27/19 8:53 AM) PT [11.7-14.3 12.7 second second] (04/27/19 8:53 AM) INR 1.0 *NA* (04/27/19 8:53 AM) PTT [23.3-34.2 27.6 second second] (04/27/19 8:53 AM) CHEMISTRY Most recent to 1 oldest [Reference Range]: Sodium [136-145 142 mmol/L mmol/L] (04/27/19 8:53 AM) Potassium [3.5-5.1 4.4 mmol/L mmol/L] (04/27/19 8:53 AM) Chloride [98-107 102 mmol/L mmol/L] (04/27/19 8:53 AM) CO2 [22-29 mmol/L] 28 mmol/L (04/27/19 8:53 AM) AGAP [3-20] 12 (04/27/19 8:53 AM) Glucose [70-99 273 mg/dL mg/dL] *HI* (04/27/19 8:53 AM) Glucose Level (POC) 208 mg/dL 1 [70-100 mg/dL] *HI* (04/28/19 8:19 AM) BUN [8-23 mg/dL] 15 mg/dL (04/27/19 8:53 AM) Creatinine 0.69 mg/dL [0.50-0.90 mg/dL] (04/27/19 8:53 AM) Calcium [8.8-10.2 9.5 mg/dL mg/dL] (04/27/19 8:53 AM) Est CrCl (CG) 49.5 mL/min 2 *NA* (04/27/19 8:53 AM) GFR (CKD-EPI) 85 mL/min/1.73 m2 3 *NA* (04/27/19 8:53 AM) 1Result Comment: Meter: [id number]~Account Coordinator: [id number] Herlinda Molina 2Result Comment: Estimated Creatinine Clearance calculated based on Cockcroft-Gault formula using: Height 160 Weight 66.0 3Result Comment: GFR calculated based on CKD-EPI [...]
--- OUTSIDE RECORDS SUMMARY | 2020-05-01 13:10 | XMS REPORT | Continuity of Care Document ---
Author Author Orthodoxy e(ye)BRAINDUNIA Organization [facility] Address Unknown Phone Unavailable Care Team Providers Care Call Taker Name Role Phone [facility] Unavailable Unavailable Problems Problem Status Onset Date Classification Date Reported Comments Source ESSENTIAL (PRIMARY) HYPERTENSION Active 01/27/2020 [email or web address] TYPE 2 DIABETES MELLITUS WITHOUT COMPLIC Active 01/27/2020 [facility] DISEASE AND INSECT CONTROL BOSS (CURRENT) USE OF ORAL HYPOGLYC Active 01/27/2020 [facility] HYPOTHYROIDISM, UNSPECIFIED Ac tive 01/27/2020 [facility] HYPERLIPIDEMIA, UNSPECIFIED Ac tive 01/27/2020 [facility] JAIL (CURRENT) USE OF ANTITHROMBOTI Active 01/27/2020 [facility] PERIPHERAL VASCULAR DISEASE, UNSPECIFIED Active 01/27/2020 [facility] OTHER DISEASE AND INSECT CONTROL BOSS (CURRENT) DRUG THERAPY Active 01/27/2020 [facility] PERSONAL HISTORY OF TRANSIENT ISCHEMIC A Active 01/27/2020 [facility] UNSPECIFIED INJURY OF HEAD, INITIAL ENCO Active 01/27/2020 [facility] MULTIPLE FRACTURES OF RIBS, LEFT SIDE, I Active 01/27/2020 [facility] UNSPECIFIED PL[address] IN UNSPECIFIED NON-INS Active 01/27/2020 [facility] FALL ON SAME LEVEL FROM SLIPPING, TRIPPI Active 01/27/2020 [facility] UNSPECIFIED MULTIPLE INJURIES, INITIAL E Active 01/27/2020 [facility] Unspecified injury of head, initial encounter 01/27/2020 Discharge Diagnosis 01/28/2020 [facility] Multiple fractures of ribs, left side, i nitial encounter for closed fracture 01/27/2020 Discharge Diagnosis 01/28/2020 [facility] Impairment of balance 12/04/2019 Diagnosis 12/04/2019 [facility] Pain in finger of right hand 12/04/2019 Diagnosis 12/04/2019 [facility] Peripheral vascular disease 12/04/2019 Diagnosis 12/04/2019 [facility] Hypothyroidism 12/04/2019 Diagnosis 12/04/2019 [facility] Mixed hyperlipidemia 12/04/2019 Diagnosis 12/04/2019 [facility] Type II diabetes mellitus uncontrolled 12/04/2019 Diagnosis 12/04/2019 [facility] Body mass index 25-29 - overweight 12/04/2019 Diagnosis 12/04/2019 [facility] Muscle weakness 08/31/2019 Diagnosis 08/31/2019 [facility] Recurrent falls 08/31/2019 Diagnosis 08/31/2019 [facility] Hyperlipidemia 08/31/2019 Diagnosis 08/31/2019 [facility] Essential hypertension 08/31/2019 Diagnosis 08/31/2019 [facility] Renewal of prescription 08/31/2019 Diagnosis 08/31/2019 [facility] Moderate recurrent major depression 08/31/2019 [facility] ENCOUNTER FOR OTHER SPECIFIED AFTERCARE Active 08/29/2019 [facility] DEPENDENCE ON WHEELCHAIR Active 08/29/2019 [facility] Peripheral arterial occlusive disease 05/31/2019 Diagnosis 06/19/[facility] 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 Active 04/28/2019 [facility] OTHER COMPLICATIONS OF PROCEDURES, NOT E Active 04/28/2019 [facility] ANEURYSM OF OTHER SPECIFIED ARTERIES Active 04/28/2019 [facility] OTHER SURGICAL PROCEDURES THE CAUSE O Active 04/28/2019 [facility] CHRONIC OBSTRUCTIVE PULMONARY DISEASE, U Active 04/28/2019 [facility] DISEASE AND INSECT CONTROL BOSS (CURRENT) USE OF ASPIRIN Active 04/28/2019 [facility] PERSONAL HISTORY OF NICOTINE DEPENDENCE Active 04/28/2019 [facility] Claudication 03/07/2019 Diagnosis 03/16/[facility] MONOPLEGIA OF LOWER LIMB AFFECTING RIGHT Active 02/28/2019 [facility] Anemia 03/0 03/2019 Problem 12/04/2019 [facility] Moderate recurrent major depression 12/14/2018 Problem 12/04/2019 [facility] Bimalleolar fracture of ankle 12/14/2018 Problem 12/04/[facility] Bimalleolar fracture of ankle 12/07/2018 Diagnosis 12/21[facility] Anemia 11/12 Diagnosis 12/21/2018 [facility] Type 2 diabetes mellitus without complication 12/07/2018 Diagnosis 12/21/2018 [facility] Weakness of right leg 11/16/2018 Diagnosis 12/21/2018 [facility] Adult health examination 11/16/2018 Diagnosis 12/21/2018 [facility] DISPLACED BIMALLEOLAR FRACTURE OF RIGHT Active 08/30/2018 [facility] ACUTE POSTHEMORRHAGIC ANEMIA A ctive 08/30/2018 [facility] PERSONAL HISTORY OF PNEUMONIA (RECURRENT Active 08/30/2018 [facility] ATHEROSCLEROTIC HEART DISEASE OF [place] Active 08/23/2018 [facility] Major depressive disorder 08/22/2018 Diagnosis 09/28/2018 [facility] Low blood pressure 08/22/2018 Diagnosis 09/28/2018 [facility] 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 Active 08/15/2018 [facility] DISPLACED BIMALLEOLAR FRACTURE OF RIGHT Active 08/15/2018 [facility] FALL (ON)(FROM) INCLINE, INITIAL ENCOUNT Active 08/15/2018 [facility] RESTAURANT OR CAFE THE PLACE OF OCCUR Active 08/15/2018 [facility] ATHEROSCLEROSIS OF RENAL ARTERY Active 08/15/2018 [facility] EMPHYSEMA, UNSPECIFIED Active 08/15/2018 [facility] PERIPHERAL VASCULAR ANGIOPLASTY STATUS W Active 08/15/2018 [facility] Peripheral vascular disease, unspecified 08/13/2018 Discharge Diagnosis 08/16/2018 [facility] Acute posthemorrhagic anemia 08/13/2018 Discharge Diagnosis 08/16/2018 [facility] Displaced bimalleolar fracture of right lower leg, initial encounter for closed fracture 08/13/2018 Discharge Diagnosis 08/16/2018 [facility] ENCOUNTER FOR PREPROCEDURAL CARDIOVASCUL Active 08/03/2018 [facility] ENCOUNTER FOR OTHER PREPROCEDURAL EXAMIN Active 08/03/2018 [facility] ENCOUNTER FOR PREPROCEDURAL LABORATORY E Active 08/03/2018 [facility] ABNORMAL ELECTROCARDIOGRAM [ECG] [EKG] Active 08/03/2018 [facility] OTHER FRACTURE OF UPPER AND LOWER END OF Active 08/03/2018 [facility] DISPLACED FRACTURE OF MEDIAL MALLEOLUS O Active 08/03/2018 [facility] Angina pectoris 07/21/2018 Diagnosis 09/13/2018 [facility] OTHER CHEST PAIN Active 07/19/2018 [facility] LOCALIZED EDEMA Active 07/19/2018 [facility] OCCLUSION AND STENOSIS OF BILATERAL [place] Active 07/19/2018 [facility] ANGINA PECTORIS, UNSPECIFIED A ctive 07/19/2018 [facility] CHEST PAIN, UNSPECIFIED Active 07/19/2018 [facility] Disorder of arteries and arterioles, unspecified 07/19/2018 Discharge Diagnosis 07/20/2018 [facility] Solitary pulmonary nodule 07/19/2018 Discharge Diagnosis 07/20/2018 [facility] Disorder of thyroid, unspecified 07/19/2018 Discharge Diagnosis 07/20/2018 [facility] Type 2 diabetes mellitus without complications 07/19/2018 Discharge Diagnosis 07/20/2018 [facility] Emphysema, unspecified 07/19/2018 Discharge Diagnosis 07/20/2018 [facility] Hyperlipidemia, unspecified 07/19/2018 Discharge Diagnosis 07/20/2018 [facility] Essential (primary) hypertension 07/19/2018 Discharge Diagnosis 07/20/2018 [facility] Chest pain, unspecified 07/19/2018 Discharge Diagnosis 07/20/2018 [facility] ALTERED MENTAL STATUS, UNSPECIFIED Active 07/09/2018 [facility] 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 Hyperlipidemia 05/24/2018 Problem 12/04/2019 [facility] Essential hypertension 05/24/2018 [facility] Peripheral arterial occlusive disease 05/24/2018 Problem 12/04/2019 [facility] Claudication 05/24/2018 Problem 12/04/2019 [facility] Esophagitis 01/04/2018 Diagnosis 09/13/2018 [facility] Acute sinusitis 01/04/2018 Diagnosis 09/13/2018 [facility] Memory impairment 11/25/2017 Diagnosis 09/13/2018 [facility] PAIN IN RIGHT LEG Active 11/08/2017 [facility] PAIN IN LEFT LEG Active 11/08/2017 [facility] OTHER SPECIFIED DISORDERS OF KIDNEY AND Active 10/21/2017 [facility] Renal mass 10/14/2017 Diagnosis 09/13/2018 [facility] CYST OF KIDNEY, ACQUIRED Active 09/10/2017 [facility] ACUTE PYELONEPHRITIS Active 08/27/2017 [facility] Metabolic encephalopathy 08/27/2017 Diagnosis 09/13/2018 [facility] Fatigue Diagnosis 09/13/2018 [facility] Fever 08/27 Diagnosis 09/13/2018 [facility] Acute pyelonephritis 08/27/2017 Diagnosis 09/13/2018 [facility] Fever, unspecified 08/19/2017 Discharge Diagnosis 08/20/2017 [facility] Altered mental status, unspecified 08/19/2017 Discharge Diagnosis 08/20/2017 [facility] Low back pain 08/17/2017 Diagnosis 09/13/2018 [facility] Solitary nodule of lung 08/17/2017 Diagnosis 09/13/2018 [facility] Left carotid artery stenosis 08/17/2017 Diagnosis 09/13/2018 [facility] Cerebrovascular accident 08/17/2017 Diagnosis 09/13/2018 [facility] Diastolic dysfunction 08/17/2017 Diagnosis 09/13/2018 [facility] Acute urinary tract infection 08/17/2017 Diagnosis 09/13/2018 [facility] Acute hypoxemic respiratory failure 08/17/2017 Diagnosis 09/13/2018 [facility] ACUTE RESPIRATORY FAILURE WITH HYPOXIA Active 08/14/2017 [facility] [place] CEREBRAL INFARCTION, UNSPECIFIED Active 08/14/2017 [facility] [place] ACUTE ON CHRONIC DIASTOLIC (CONGESTIVE) Active 08/14/2017 [facility] [place] URINARY TRACT INFECTION, SITE NOT SPECIF Active 08/14/2017 [facility] [place] CHRONIC OBSTRUCTIVE PULMONARY DISEASE WI Active 08/14/2017 [facility] [place] OCCLUSION AND STENOSIS OF LEFT CAROTID A Active 08/14/2017 [facility] [place] Hyperglycemia, unspecified 08/12/2017 Discharge Diagnosis 08/15/2017 [facility] Heart failure, unspecified 08/12/2017 Discharge Diagnosis 08/15/2017 [facility] Hypoxemia 1 10/12/2016 Discharge Diagnosis 08/15/2017 [facility] BENIGN PAROXYSMAL VERTIGO, UNSPECIFIED E Active 03/12/2017 [facility] Positional vertigo 02/26/2017 Diagnosis 09/13/[facility] Acquired trigger finger 02/26/2017 Diagnosis 09/13/[facility] Pain in lower limb 11/17/2016 Diagnosis 09/13/[facility] Benign essential hypertension 11/17/2016 Diagnosis 09/13/[facility] Influenza vaccination 08/05/2016 Diagnosis 09/13/2018 [facility] Hypothyroidism 04/01/2016 Problem 12/04/2019 [facility] Type 2 diabetes mellitus without complication 04/01/2016 Problem 12/04/2019 [facility] Pain in right knee 03/31/2016 Diagnosis 09/13/2018 [facility] Hip pain Diagnosis 09/13/2018 [facility] OTHER NONSPECIFIC ABNORMAL FINDING OF ANGY Active 07/11/2015 [facility] EMPYEMA WITHOUT MENTION OF FISTULA Active 04/22/2015 [facility] UNSPECIFIED CHEST PAIN Active 04/22/2015 [facility] Peripheral arterial occlusive disease (disorder) Active Problem 01/28/2020 [facility] Diabetes mellitus (disorder) A ctive Problem [facility] Disorder of carotid artery (disorder) Active Problem [facility] Disease of thyroid gland (disorder) Active Problem [facility] Dyslipidemia (disorder) Active Problem 01/28/2020 [facility] Fall (finding) Active Problem 01/28/2020 [facility] History of - pneumonia (context-dependent category) Active Problem 01/28/2020 [facility] History of aortofemoral bypass surgery (situation) Active Problem 01/28/2020 [facility] History of appendectomy (situation) Active Problem [facility] History of - CVA (context-dependent category) Active Problem 01/28/2020 [facility] Lung mass (finding) Active Problem 01/28/2020 [facility] Mesenteric artery stenosis (disorder) Active Problem [facility] Pulmonary emphysema (disorder) Active Problem [facility] Renal artery stenosis (disorder) Active Problem [facility] Stricture of artery (disorder) Active Problem [facility] Encounter for other specified aftercare Final 03/01 [facility] 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 Final 03/01/2019 [facility] Benign paroxysmal vertigo, unspecified ear Final 03/13 [facility] Final: Type 2 diabetes mellitus without complications Final 12/26/2015 [facility] Type 2 diabetes mellitus without complic Active [facility] Other hyperlipidemia Active [facility] Hypothyroidism, unspecified Ac tive [facility] Pyothorax without fistula Acti ve [facility] Encounter for immunization Act krissy [facility] Medications Medication Details Route Status Patient Instructions Ordering Provider Order Date Source Acetaminophen 325 MG / Hydrocodone [place] trate 5 MG Oral Tablet [[place] 5/325] 1 TAB, PO, Q6H (Every 6 hours), PRN as n eeded for pain, x 3 day, # 10 TAB, 0 Refill(s), Indication: Breakthrough Pain, FOR ACUTE PAIN Active 01/28/2020 [facility] Aspirin 81 MG Enteric Coated Tablet 1 TAB, PO, Daily, 0 Refill(s) Active 04/27/2019 [facility] Iron (ferrous sulfate) 325 mg (65 mg iro n) tablet
Take 1 tablet every day by oral route. Iron (ferrous sulfate) 325 mg (65 mg iron) tablet Take 1 tablet every day by oral route. Active 08/29/2018 [facility] Hydromorphone Hydrochloride 2 MG Oral Tablet 1 TAB, PO, Q6H (Every 6 hours), PRN Severe Pain, # 6 TAB, 0 Refill(s), # 6 tabs acute pain exception Active 08/15/2018 [facility] lisinopril 20 mg oral tablet 1 TAB, PO, Daily, 0 Refill(s), Indication: High Blood Pressure Active 08/02/2018 [facility] Nitroglycerin 0.4 MG Sublingual Tablet 1 TAB, Sublingual, Q5MIN (Every 5 minutes), PRN chest pain, 0 Refill(s) Active 08/02/2018 [facility] cilostazol 100 mg oral tablet = 1 TAB, PO, BID (2 times a day), 0 Refill(s), Indication: Unknown Active 08/02/2018 [facility] clopidogrel 75 mg oral tablet 1 TAB, PO, Daily, 0 Refill(s), Indication: Clot Prevention Active 08/02/2018 [facility] pant[facility] 40 mg oral delayed release tablet 1 TAB, PO, Daily, 0 Refill(s), Indication: Reflux Active 08/02/2018 [facility] levothyroxine 125 mcg (0.125 mg) oral capsule See Instructions, 0 Refill(s), 1 CAP PO Daily, Indication: Thyroid Disorder Active 08/02/2018 [facility] amLODIPine 10 mg oral tablet 1 TAB, PO, Daily, 0 Refill(s), Indication: High Blood Pressure Active 08/02/2018 [facility] hydroCHLOROthiazide 12.5 mg oral capsule 1 CAP, PO, Daily, 0 Refill(s), Indication: High Blood Pressure Active 08/02/2018 [facility] Aspirin 81 MG Oral Tablet 1 TA B, PO, Daily, 0 Refill(s), Indication: Clot Prevention Active 08/02/2018 [facility] hydroCHLOROthiazide 12.5 mg oral capsule 1 CAP, PO, Daily, # 30 CAP, 0 Refill(s), Hold for systolic blood pressure less than 110, Indication: High Blood Pressure, Pharmacy: [facility] [id number] Active 07/20/2018 [facility] lisinopril 20 mg oral tablet 1 TAB, PO, BID (2 times a day), # 60 TAB, 0 Refill(s), Hold for systolic blood pressure less than 100, Indication: High Blood Pressure, Pharmacy: [facility] [id number] Active 07/20/2018 [facility] levothyroxine 125 mcg (0.125 mg) oral capsule = 1 CAP, PO, Daily, # 30 CAP, 0 Refill(s), Indication: Thyroid Disorder, Pharmacy: [facility] [id number] Active 07/19/2018 [facility] Nitroglycerin 0.4 MG Sublingual Tablet 1 TAB, Sublingual, 5MX3 (Every 5 minutes x 3 doses), PRN Chest Pain, # 100 TAB, 0 Refill(s), Indication: Chest Pain, Pharmacy: [facility] [id number] Active 07/19/2018 [facility] Aspirin 81 MG Chewable Tablet 1 TAB, PO, Daily, # 30 TAB, 0 Refill(s), Indication: Clot Prevention, Pharmacy: [facility] [id number] Active 07/19/2018 [facility] amLODIPine 10 mg oral tablet 1 TAB, PO, Daily, # 30 TAB, 0 Refill(s), Hold for systolic blood pressure less than 110, Indication: High Blood Pressure, Pharmacy: [facility] [id number] Active 07/19/2018 [facility] Aspir-81 81 mg tablet,delayed release
Take 1 tablet every day by oral route. Aspir-81 81 mg tablet,delayed release Ta ke 1 tablet every day by oral route. Active 07/19/2018 [facility] Aspir-81 mg tablet,delayed release
Take 1 tablet every day by oral route. Aspir-81 mg tablet,delayed release Take 1 tablet every day by oral route. Active 07/19/2018 [facility] Glipizide 5 MG Oral Tablet 1 T AB, PO, BID (2 times a day), 0 Refill(s), Indication: Diabetes Active 06/24/2018 [facility] Metformin hydrochloride 500 MG Oral Tablet 1 TAB, PO, BID (2 times a day), 0 Refill(s) Active 06/24/2018 [facility] raNITIdine 75 mg oral tablet 1 TAB, PO, Daily, 0 Refill(s) Active 06/24/2018 [facility] levothyroxine 137 mcg (0.137 mg) oral capsule = 1 CAP, PO, Daily, 0 Refill(s) Active 06/24/2018 [facility] Ceftin 500 mg oral tablet 1 TA B, PO, BID (2 times a day), x 5 day, # 10 TAB, 0 Refill(s), Indication: Bacterial Infection Active 08/14/2017 [facility] clopidogrel 75 mg oral tablet 1 TAB, PO, Daily, # 30 TAB, 0 Refill(s), Indication: Clot Prevention Active 08/14/2017 [facility] aspirin 325 mg oral delayed release tablet 1 TAB, PO, Daily, # 30 TAB, 0 Refill(s), Indication: Clot Prevention Active 08/14/2017 [facility] levothyroxine 150 mcg (0.15 mg) oral tablet = 1 TAB, PO, Daily, # 30 TAB, 0 Refill(s), Indication: Thyroid Disorder Active 08/14/2017 [facility] glipiZIDE 10 mg oral tablet = 1 TAB, PO, BID (2 times a day), # 30 TAB, 0 Refill(s), Indication: Diabetes Active 08/14/2017 [facility] clopidogrel 75 mg oral tablet 1 TAB, PO, Daily, # 30 TAB, 0 Refill(s), Indication: Clot Prevention Active 08/14/2017 [facility] Aspirin 325 MG Enteric Coated Tablet 1 TAB, PO, Daily, # 30 TAB, 0 Refill(s), Indication: Clot Prevention Active 08/14/2017 [facility] levothyroxine 150 mcg (0.15 mg) oral tablet = 1 TAB, PO, Daily, # 30 TAB, 0 Refill(s), Indication: Thyroid Disorder Active 08/14/2017 [facility] Glipizide 10 MG Oral Tablet = 1 TAB, PO, BID (2 times a day), # 30 TAB, 0 Refill(s), Indication: Diabetes Active 08/14/2017 [facility] metFORMIN 500 mg oral tablet 1 TAB, PO, BID (2 times a day), # 60 TAB, 0 Refill(s), Indication: Diabetes Active 08/14/2017 [facility] Metformin hydrochloride 500 MG Oral Tablet 1 TAB, PO, BID (2 times a day), # 60 TAB, 0 Refill(s), Indication: Diabetes Active 08/14/2017 [facility] Glipizide 5 MG Oral Tablet 1 T AB, PO, Daily, 0 Refill(s) Active 04/12/2017 [facility] levothyroxine 125 mcg (0.125 mg) oral tablet = 1 TAB, PO, Daily, 0 Refill(s) Active 04/12/2017 [facility] losartan 100 mg oral tablet = 1 TAB, PO, Daily, 0 Refill(s) Active 04/12/2017 [facility] atorvastatin 10 mg oral tablet 1 TAB, PO, Daily, 0 Refill(s) Active 04/12/2017 [facility] Metoprolol Tartrate 50 mg oral tablet 1 TAB, PO, BID (2 times a day), 0 Refill(s) Active 04/12/2017 [facility] losartan 100 mg oral tablet = 1 TAB, PO, Daily, 0 Refill(s) Active 04/12/2017 [facility] atorvastatin 10 mg oral tablet 1 TAB, PO, Daily, 0 Refill(s) Active 04/12/2017 [facility] Metformin hydrochloride 500 MG Oral Tablet 1 TAB, PO, Daily, 0 Refill(s) Active 04/12/2017 [facility] tramadol hydrochloride 50 MG Oral Tablet 1 TAB, PO, Q6H (Every 6 hours), PRN as needed for pain, 0 Refill(s) Active 04/12/2017 [facility] levothyroxine 125 mcg tablet T EDUAR 1 TABLET BY ORAL ROUTE EVERY DAY ORAL Active 03/25/2016 [facility] levothyroxine 100 mcg tablet T EDUAR 1 TABLET BY MOUTH EVERY DAY ORAL Active 03/16/2016 [facility] metformin 500 mg tablet TAKE 1 TABLET BY ORAL ROUTE ONCE DAILY ORAL Active 02/17/2016 [facility] atorvastatin 10 mg tablet TAKE 1 TABLET BY ORAL ROUTE EVERY DAY ORAL Active 01/27/2016 [facility] glipizide 5 mg tablet TAKE 1 T ABLET BY ORAL ROUTE 2 TIMES EVERY DAY BEFORE MEALS ORAL Active 01/27/2016 [facility] empagliflozin 25 MG Oral Tablet take 1 tablet by oral route every day in the morning ORAL Active 12/27/2015 [facility] levothyroxine 125 mcg tablet t eduar 1 tablet by oral route every day ORAL Active 12/27/2015 [facility] losartan 100 mg tablet TAKE 1 TABLET BY ORAL ROUTE EVERY DAY ORAL Active 12/27/2015 [facility] metformin 500 mg tablet take 1 tablet by oral route once daily ORAL No Longer Active 12/27/2015 [facility] cephalexin 500 mg capsule take 1 capsule by oral route every 8 hours ORAL Active 12/27/2015 [facility] BLOOD SUGAR DIAGNOSTIC 1 Daily MISCELLANEOUS use one strip to test three times daily Active 12/27/2015 [facility] lancets use 1 lancet to test t hree times daily Active 12/27/2015 [facility] One Touch Ultra Blue Kit MISCELL KIT use 1 meter to test blood gluose Active 12/27/2015 [facility] atorvastatin 10 mg tablet take 1 tablet by oral route every day ORAL No Longer Active 12/27/2015 [facility] glipizide 5 mg tablet TAKE 1 T ABLET BY ORAL ROUTE 2 TIMES EVERY DAY BEFORE MEALS ORAL No Longer Active 12/27/2015 [facility] metoprolol tartrate 50 mg tablet TAKE 1 TABLET BY ORAL ROUTE 2 TIMES EVERY DAY WITH MEALS ORAL Active 12/11/2015 [facility] glipizide 5 mg tablet TAKE 1 T ABLET BY ORAL ROUTE 2 TIMES EVERY DAY BEFORE MEALS ORAL No Longer Active 12/11/2015 [facility] losartan 100 mg tablet TAKE 1 TABLET BY ORAL ROUTE EVERY DAY ORAL No Longer Active 12/11/2015 [facility] levothyroxine 100 mcg tablet T EDUAR 1 TABLET BY MOUTH EVERY DAY ORAL No Longer Active 12/11/2015 [facility] levothyroxine 100 mcg tablet T EDUAR 1 TABLET BY MOUTH EVERY DAY ORAL No Longer Active 11/20/2015 [facility] My Favorite Multiple oral liquid ORAL Active 11/12/2015 [facility] empagliflozin 25 MG Oral Tablet take 1 tablet by oral route every day in the morning ORAL No Longer Active 11/12/2015 [facility] metformin 500 mg tablet take 1 tablet by oral route once daily ORAL No Longer Active 11/12/2015 [facility] losartan 100 mg tablet TAKE 1 TABLET BY ORAL ROUTE EVERY DAY ORAL No Longer Active 11/12/2015 [facility] metoprolol tartrate 50 mg tablet TAKE 1 TABLET BY ORAL ROUTE 2 TIMES EVERY DAY WITH MEALS ORAL No Longer Active 11/04/2015 [facility] glipizide 5 mg tablet TAKE 1 T ABLET BY ORAL ROUTE 2 TIMES EVERY DAY BEFORE MEALS ORAL No Longer Active 10/30/2015 [facility] atorvastatin 10 mg tablet take 1 tablet by oral route every day ORAL No Longer Active 10/30/2015 [facility] metformin 1,000 mg tablet TAKE 1 TABLET BY ORAL ROUTE 2 TIMES EVERY DAY WITH MORNING AND EVENING MEALS ORAL No Longer Active 10/28/2015 [facility] Azithromycin 250 MG Oral Tablet take 2 tablet by oral route every day for 1 day then 1 tablet (250 mg) by oral route once daily for 4 days ORAL No Longer Active 09/20/2015 [facility] metformin 1,000 mg tablet TAKE 1 TABLET BY ORAL ROUTE 2 TIMES EVERY DAY WITH MORNING AND EVENING MEALS ORAL No Longer Active 09/11/2015 [facility] glipizide 5 mg tablet TAKE 1 T ABLET BY ORAL ROUTE 2 TIMES EVERY DAY BEFORE MEALS ORAL No Longer Active 08/14/2015 [facility] LEVOTHYROXINE 0.100MG (100MCG) TAB TAKE 1 TABLET BY MOUTH EVERY DAY ORAL Active 08/11/2015 [facility] losartan 100 mg tablet TAKE 1 TABLET BY ORAL ROUTE EVERY DAY ORAL No Longer Active 08/11/2015 [facility] metoprolol tartrate 50 mg tablet TAKE 1 TABLET BY ORAL ROUTE 2 TIMES EVERY DAY WITH MEALS ORAL No Longer Active 08/01/2015 [facility] ProAir HFA 90 mcg/actuation aerosol inhaler inhale 2 puff by inhalation route every 4 - 6 hours as needed as needed RESPIRATORY (INHALATION) No Lo nger Active 07/15/2015 [facility] metformin 1,000 mg tablet TAKE 1 TABLET BY ORAL ROUTE 2 TIMES EVERY DAY WITH MORNING AND EVENING MEALS ORAL No Longer Active 06/28/2015 [facility] glipizide 5 mg tablet TAKE 1 T ABLET BY ORAL ROUTE 2 TIMES EVERY DAY BEFORE MEALS ORAL No Longer Active 06/27/2015 [facility] metoprolol tartrate 50 mg tablet TAKE 1 TABLET BY ORAL ROUTE 2 TIMES EVERY DAY WITH MEALS ORAL No Longer Active 05/31/2015 [facility] levothyroxine 100 mcg tablet t eduar 1 tablet by oral route every day ORAL No Longer Active 05/16/2015 [facility] losartan 100 mg tablet take 1 tablet by oral route every day ORAL No Longer Active 05/16/2015 [facility] Levothyroxine Sodium 0.1 MG Oral Capsule take 1 capsule by oral route every day ORAL No Longer Active 05/16/2015 [facility] glipizide 5 mg tablet take 1 T ablet by oral route 2 times every day before meals ORAL No Longer Active 05/16/2015 [facility] metoprolol tartrate 50 mg tablet take 1 tablet by oral route 2 times every day with meals ORAL No Longer Active 05/16/2015 [facility] metformin 1,000 mg tablet take 1 tablet by oral route 2 times every day with morning and evening meals ORAL No Longer Active 05/16/2015 [facility] Rocephin 1 gm/50 ml intravenous solution 1, GM, 50, mL, IV, QDAY, 0, 700, mL, 0, 0, 10/03/07 12:19:11 EST, current medication from another provider, [facility], 0 Active 10/03/2007 [facility] Ceftriaxone 1000 MG Injection [Rocephin] 1, GM, 50, mL, IV, QDAY, 0, 700, mL, 0, 0, 10/03/07 12:19:11 EST, current medication from another provider, [facility], 0 Active 10/03/2007 [facility] 24 HR Nicotine 0.583 MG/HR Transdermal Patch 1, Patch, Transdermal, QDAY, 0, 0, 0, 10/03/07 12:18:32 EST, current medication from another provider, [facility] Active 10/03/2007 [facility] Saccharomyces boulardii lyo 250 MG Oral Capsule [Florastor] 250, mg, 1, CAP, PO, TID, [id number], 0, 0, 1 12/04/06 12:15:11 EST, current medication from another provider, [facility] Active 10/03/2007 [facility] Saccharomyces boulardii lyo 250 MG Oral Capsule [Florastor] 250, mg, 1, CAP, PO, TID, [id number], 0, 0, 1 12/04/06 12:15:11 EST, current medication from another provider, [facility] Active 10/03/2007 [facility] Crestor 10, mg, PO, QDAY, 0, 0 , 0, 10/03/07 12:10:36 EST, current medication from another provider, [facility] Active 10/03/2007 [facility] potassium chloride 40, mEq, PO , QDAY, 0, 0, 0, 10/03/07 12:10:15 EST, current medication from another provider, [facility] Active 10/03/2007 [facility] Potassium Chloride 40, mEq, PO , QDAY, 0, 0, 0, 10/03/07 12:10:15 EST, current medication from another provider, [facility] Active 10/03/2007 [facility] Lopressor 25, mg, PO, BID, 48, 0, 0, 10/03/07 12:09:40 EST, current medication from another provider, [facility] Active 10/03/2007 [facility] Hydrochlorothiazide 25, mg, PO , QDAY, 0, 0, 0, 10/03/07 12:09:15 EST, current medication from another provider, [facility] Active 10/03/2007 [facility] Fluconazole 200, mg, PO, QDAY, 0, 0, 0, 10/03/07 12:07:35 EST, current medication from another provider, [facility] Active 10/03/2007 [facility] Flagyl 500, mg, PO, TID, [id number] , 0, 0, 10/03/07 12:07:07 EST, current medication from another provider, [facility] Active 10/03/2007 [facility] PERcocet 5/325 See Instruction s, 0, 0, 10/03/07 12:05:36 EST, one - two tabs every six hours as needed for pain, Print MONE Number, current medication from another provider, [id number], [facility] Instructions: one - two tabs every six hours as needed for pain Active 10/03/2007 [facility] Percocet See Instructions, 0, 0, 10/03/07 12:05:36 EST, one - two tabs every six hours as needed for pain, Print MONE Number, current medication from another provider, [id number], [facility] Active 10/03/2007 [facility] A DISCHARGED Medications 0, 0, 10/03/07 12:05:16 EST, 17AMBINDER, [facility] Active 10/03/2007 [facility] Aspirin 325, mg, PO, QDAY, 947 , 0, 0, 08/03/06 14:28:50 EDT, current medication from another provider, [facility] Active 08/03/2006 [facility] atorvastatin 10 mg tablet
TAKE 1 TA BLET BY MOUTH EVERY DAY atorvastatin 10 mg tablet TAKE 1 TABLET BY MOUTH EVERY DAY Active [facility] diclofenac 3 % topical gel
APPLY TO LESION AREAS BY TOPICAL ROUTE 2 TIMES PER DAY diclofenac 3 % topical gel APPLY TO LESI ON AREAS BY TOPICAL ROUTE 2 TIMES PER DAY Active [facility] glipizide 5 mg tablet
TAKE 1 TABLET BY MOUTH TWICE DAILY BEFORE MEALS glipizide 5 mg tablet TAKE 1 TABLET BY M OUTH TWICE DAILY BEFORE MEALS Active formerly [facility] Invokamet 150 mg-500 mg tablet
Take 1 tablet every day by oral route. Invokamet 150 mg-500 mg tablet Take 1 ta blet every day by oral route. Active formerly [facility] levothyroxine 125 mcg tablet
TAKE 1 TABLET BY MOUTH EVERY DAY levothyroxine 125 mcg tablet TAKE 1 TABL ET BY MOUTH EVERY DAY Active [facility] losartan 100 mg tablet
TAKE 1 TABLE T BY MOUTH EVERY DAY losartan 100 mg tablet TAKE 1 TABLET BY MOUTH EVERY DAY Active [facility] metoprolol tartrate 50 mg tablet
TA KE 1 TABLET BY MOUTH TWICE DAILY WITH MEALS metoprolol tartrate 50 mg tablet TAKE 1 TABLET BY MOUTH TWICE DAILY WITH MEALS Active [facility] OneTouch Ultra Test strips One Touch Ultra Test strips Active formerly [facility] OneTouch Ultra2 kit OneTouch U ltra2 kit Active [facility] TRUEplus Lancets 28 gauge TRUE plus Lancets 28 gauge Active formerly [facility] Accu-Chek Luci Plus Meter Acc u-Chek Luci Plus Meter Active formerly [facility] Accu-Chek Luci Plus test strips Accu-Chek Luci Plus test strips Active formerly [facility] aspirin 325 mg tablet
Take 1 tablet every day by oral route. aspirin 325 mg tablet Take 1 tablet ever y day by oral route. Active [facility] cilostazol 50 mg tablet
Take one ta blet by mouth twice daily cilostazol 50 mg tablet Take one tablet by mouth twice daily Active [facility] clopidogrel 75 mg tablet
TAKE 1 TAB LET BY MOUTH EVERY DAY clopidogrel 75 mg tablet TAKE 1 TABLET B Y MOUTH EVERY DAY Active [facility] levothyroxine 137 mcg tablet
TAKE 1 TABLET BY MOUTH EVERY DAY levothyroxine 137 mcg tablet TAKE 1 TABL ET BY MOUTH EVERY DAY Active [facility] metformin 500 mg tablet
TAKE 1 TABL ET BY MOUTH TWICE DAILY metformin 500 mg tablet TAKE 1 TABLET BY MOUTH TWICE DAILY Active [facility] OneTouch Delica Lancets 33 gauge
Us e to test blood sugar twice daily before AM and PM meals. OneTouch Delica Lancets 33 gauge Use to test blood sugar twice daily before AM and PM meals. [facility] oxycodone-acetaminophen 5 mg-325 mg tabl et
Take 1 tablet every 8 hours by oral route as needed for 3 days. oxycodone-acetaminophen 5 mg-325 mg tablet Take 1 tablet every 8 hours by oral route as needed for 3 days. [facility] pantop[facility]ole 40 mg tablet,delayed releas e
TAKE 1 TABLET BY MOUTH EVERY DAY pantoprazole 40 mg tablet,delayed releas e TAKE 1 TABLET BY MOUTH EVERY DAY [facility] simple diag mis lancing simple diag mis lancing [facility] ultra thin mis 31g ultra thin mis 31g Active [facility] B12
daily as directed B12 daily as directed Active [facility] escitalopram 5 mg tablet
TAKE 1 TAB LET BY MOUTH EVERY DAY escitalopram 5 mg tablet TAKE 1 TABLET B Y MOUTH EVERY DAY Active [facility] glipizide 5 mg tablet glipizid e 5 mg tablet Active [facility] levothyroxine 125 mcg tablet
Take o ne tablet by mouth every day levothyroxine 125 mcg tablet Take one ta blet by mouth every day [facility] losartan 100 mg tablet losarta n 100 mg tablet Active [facility] mirtazapine 15 mg tablet
TAKE 1 TAB LET BY MOUTH EVERY DAY mirtazapine 15 mg tablet TAKE 1 TABLET B Y MOUTH EVERY DAY Active [facility] nitroglycerin 0.4 mg sublingual tablet<b r/> Dissolve 1 tablet every 5 minutes for 3 doses as needed for chest pain nitroglycerin 0.4 mg sublingual tablet Dissolve 1 tablet every 5 minutes for 3 doses as needed for chest pain Active [facility] OneTouch Delica Lancets 33 gauge
US E TO CHECK BLOOD GLUCOSE TWICE DAILY BEFORE MEALS OneTouch Delica Lancets 33 gauge USE TO CHECK BLOOD GLUCOSE TWICE DAILY BEFORE MEALS Active formerly [facility] cilostazol 100 mg tablet
Take 1 tab let twice a day by oral route. cilostazol 100 mg tablet Take 1 tablet t wice a day by oral route. Active formerly [facility] escitalopram 5 mg tablet
Take 1 tab let every day by oral route. escitalopram 5 mg tablet Take 1 tablet e very day by oral route. Active formerly [facility] levothyroxine 125 mcg tablet l evothyroxine 125 mcg tablet Active formerly [facility] mirtazapine 15 mg tablet
Take 1 tab let every day by oral route. mirtazapine 15 mg tablet Take 1 tablet e very day by oral route. Active formerly [facility] cilostazol 100 mg tablet
Take 1 tab let twice a day by oral route for 90 days. cilostazol 100 mg tablet Take 1 tablet t wice a day by oral route for 90 days. Active formerly [facility] metoprolol tartrate 50 mg tablet
Ta ke 1 tablet twice a day by oral route for 90 days. metoprolol tartrate 50 mg tablet Take 1 tablet twice a day by oral route for 90 days. Active formerly [facility] OneTouch Ultra2 Meter kit OneT ouch Ultra2 Meter kit Active formerly [facility] tramadol 50 mg tablet
take 1 tab PO twice daily prn pain tramadol 50 mg tablet take 1 tab PO twic e daily prn pain Active [facility] cilostazol 50 mg tablet
Take 1 tabl et twice a day by oral route. cilostazol 50 mg tablet Take 1 tablet tw ice a day by oral route. Active [facility] clopidogrel 75 mg tablet
Take 1 tab let every day by oral route. clopidogrel 75 mg tablet Take 1 tablet e very day by oral route. Active formerly [facility] levothyroxine 150 mcg tablet
TAKE 1 TABLET BY MOUTH EVERY DAY levothyroxine 150 mcg tablet TAKE 1 TABL ET BY MOUTH EVERY DAY Active [facility] metformin 500 mg tablet
Take 1 tabl et twice a day by oral route. metformin 500 mg tablet Take 1 tablet tw ice a day by oral route. Active formerly [facility] oxycodone-acetaminophen 5 mg-325 mg tabl et
Take 1 tablet twice a day by oral route as needed. oxycodone-acetaminophen 5 mg-325 mg tablet Take 1 tablet twice a day by oral route as needed. Active [facility] amlodipine 10 mg tablet
Take 1 tabl et every day by oral route. amlodipine 10 mg tablet Take 1 tablet ev regine day by oral route. Active formerly [facility] hydrochlorothiazide 12.5 mg capsule
Take 1 capsule every day by oral route. hydrochlorothiazide 12.5 mg capsule Take 1 capsule every day by oral route. [facility] hydromorphone 2 mg tablet
Take 1 ta blet every 6 hours by oral route as needed for 2 days. hydromorphone 2 mg tablet Take 1 tablet every 6 hours by oral route as needed for 2 days. Active [facility] tramadol 50 mg tablet tramadol 50 mg tablet Active [facility] metoprolol tartrate 50 mg tablet
TA KE 1 TABLET BY MOUTH EVERY DAY metoprolol tartrate 50 mg tablet TAKE 1 TABLET BY MOUTH EVERY DAY Active formerly [facility] mirtazapine 15 mg tablet leigh zapine 15 mg tablet Active [facility] levothyroxine 150 mcg tablet
Take 1 tablet every day by oral route. levothyroxine 150 mcg tablet Take 1 tabl et every day by oral route. Active [facility] azithromycin 250 mg tablet
TAKE 2 T ABLETS (500 MG) BY ORAL ROUTE ONCE DAILY FOR 1 DAY THEN 1 TABLET (250 MG) BY ORAL ROUTE ONCE DAILY FOR 4 DAYS azithromycin 250 mg tablet TAKE 2 TABLET S (500 MG) BY ORAL ROUTE ONCE DAILY FOR 1 DAY THEN 1 TABLET (250 MG) BY ORAL ROUTE ONCE DAILY FOR 4 DAYS Active [facility] levothyroxine 137 mcg tablet
Take 1 tablet every day by oral route for 30 days. levothyroxine 137 mcg tablet Take 1 tabl et every day by oral route for 30 days. Active formerly [facility] pantoprazole 40 mg tablet,delayed releas e
Take 1 tablet every day by oral route. pantoprazole 40 mg tablet,delayed releas e Take 1 tablet every day by oral route. Active formerly [facility] metformin 500 mg tablet
TAKE 1 TABL ET BY MOUTH DAILY metformin 500 mg tablet TAKE 1 TABLET BY MOUTH DAILY Active formerly [facility] tramadol 50 mg tablet
Take 1 tablet every 6 hours by oral route as needed. tramadol 50 mg tablet Take 1 tablet ever y 6 hours by oral route as needed. Active formerly [facility] levofloxacin 500 mg tablet
Take 1 t ablet every 24 hours by oral route. levofloxacin 500 mg tablet Take 1 tablet every 24 hours by oral route. Active formerly [facility] cefuroxime axetil 500 mg tablet
Kalen e 1 tablet every 12 hours by oral route. cefuroxime axetil 500 mg tablet Take 1 t ablet every 12 hours by oral route. Active formerly [facility] levothyroxine 50 mcg tablet
Take 1 tablet every day by oral route. levothyroxine 50 mcg tablet Take 1 table t every day by oral route. Active [facility] Allergies, Adverse Reactions, Alerts Substance Category Reaction Severity Reaction type Status Date Reported Comments Source Lidocaine Allergy to substance 08/16/2017 formerly [facility] No Known Allergies propensity to adverse reactions to drug active 07/31/2016 [facility] lidocaine Assertion Drug allergy Active [facility] lidocaine<sup>1</sup> Assertion Non-therapeutic response to medications Severe Drug allergy Active stated," doesnot work" [facility] Tylenol Assertion Drug allergy Active [facility] Immunizations Immunization Date Given Site Status Last Updated Comments Source influenza, trivalent, adjuvanted 06/27/2018 completed [facility] influenza, seasonal, injectable 06/27/2018 completed formerly [facility] pneumococcal conjugate PCV 13 07/22/2017 completed formerly [facility] influenza, injectable, quadrivalent 07/12/2017 completed formerly [facility] pneumococcal conjugate PCV 13 07/11/2017 completed formerly [facility] influenza, seasonal, injectable 08/10/2016 completed formerly [facility] Tdap 10/11/2015 completed formerly [facility] Fluvirin vaccine (split) (3 yrs or older) 07/15/2015 completed [facility] influenza, seasonal, injectable 07/15/2015 completed formerly [facility] pneumococcal polysaccharide PPV23 10/11/2014 completed formerly [facility] influenza, seasonal, injectable 08/11/2014 completed formerly [facility] pneumococcal polysaccharide PPV23 08/11/2014 completed formerly [facility] influenza, seasonal, injectable 08/06/2014 completed formerly [facility] pneumococcal polysaccharide PPV23 01/22/2010 completed formerly [facility] Tdap 10/11/2007 completed formerly [facility] Fluvirin vaccine (split) (3 yrs or older) Not Given [facility] Results Order Name Results Value Reference Range Date Interpretation Comments Source Glu POC ORM Glucose Level (POC) 208 mg/dL 70 - 100 04/28/2019 H Meter: [id number]~Test Lab Technician: [id number] Herlinda Malikviki
[facility] Glu POC ORM Glucose Level (POC) 199 mg/dL 70 - 100 04/28/2019 H Meter: [id number]~Test Lab Technician: [id number] Tomysupa bailey
[facility] Glu POC ORM Glucose Level (POC) 230 mg/dL 70 - 100 04/27/2019 H RN Notified~Meter: [id number]~Test Lab Technician : [id number] Elizabeth Moreno
[facility] Renal Funct Index GFR (CKD-EPI) 85 mL/min/1.73 m2 04/27/2019 NA GFR calculated based on CKD-EPI Creatini ne Equation (2009).
Age(years) Average GFR
20-29 116 mL/min/1.73 m^2
30-39 107 mL/min/1.73 m^2
40-49 99 mL/min/1.73 m^2
50-59 93 mL/min/1.73 m^2
60-69 85 mL/min/1.73 m^2
70+ 75 mL/min/1.73 m^2

Acceptable GFR =>60 mL/min/1.73 m^2
Chronic Kidney Disease <60 mL/min/1.73 m^2
Kidney Failure <15 mL/min/1.73 m^2
[facility] Est CrCl (CG) Est CrCl (CG) 49 .5 mL/min 04/27/2019 NA Estimated Creatinine Clearance calculate d based on Cockcroft- Gault formula using:
Height 160
Weight 66.0
[facility] BMP Sodium 142 mmol/L 136 - 145 04/27/2019 N [facility] BMP Potassium 4.4 mmol/L 3.5 - 5.1 04/27/2019 N [facility] BMP Chloride 102 mmol/L 98 - 107 04/27/2019 N [facility] BMP AGAP 12 3 - 20 04/27/2019 N [facility] BMP CO2 28 mmol/L 22 - 29 04/27/2019 N [facility] BMP Glucose 273 mg/dL 70 - 99 04/27/2019 H [facility] BMP BUN 15 mg/dL 8 - 23 04/27/2019 N [facility] BMP Creatinine 0.69 mg/dL 0.50 - 0.90 04/27/2019 N Creatinine result is standardized to the internationally accepted Isotope Dilution Mass Spectrometry (IDMS).
[facility] BMP Calcium 9.5 mg/dL 8.8 - 10.2 04/27/2019 N [facility] PTT PTT 27.6 second 23.3 - 34.2 04/27/2019 N [facility] Protime PT 12.7 second 11.7 - 14.3 04/27/2019 N [facility] Protime INR 1.0 04/27/2019 NA Therapeutic Range 2.0 to 3.0
[facility] Auto Diff Neutrophils 56.4 % 42.7 - 77.1 04/27/2019 N [facility] Auto Diff Lymphs 33.0 % 12.1 - 45.3 04/27/2019 N [facility] Auto Diff Monocytes % 7.1 % 4.4 - 12.5 04/27/2019 N [facility] Auto Diff Eosinophil % 2.4 % 0.0 - 5.6 04/27/2019 N [facility] Auto Diff Basophil % 0.7 % 0.0 - 1.0 04/27/2019 N [facility] Auto Diff Immature Granulocytes % 0. 4 % 0.0 - 1.0 04/27/2019 N [facility] Auto Diff Neutro Absolute 2.5 x1 0'3/microL 1.4 - 6.8 04/27/2019 N [facility] Auto Diff Lymph Absolute 1.5 x1 0'3/microL 0.6 - 3.2 04/27/2019 N [facility] Auto Diff Bollinger Absolute 0.3 x1 0'3/microL 0.2 - 0.9 04/27/2019 N [facility] Auto Diff Eos Absolute 0.1 x1 0'3/microL 0.0 - 0.6 04/27/2019 N [facility] Auto Diff Basophil Absolute 0.0 x1 0'3/microL 0.0 - 0.1 04/27/2019 N [facility] Auto Diff Immature Granulocytes Abs 0.02 x10'3/microL 0.01 - 0.03 04/27/2019 N [facility] CBC/Diff WBC 4.5 x10'3/micro L 5.4 - 10.8 04/27/2019 L [facility] CBC/Diff RBC 4.28 x10'6/micr oL 3.79 - 5.19 04/27/2019 N [facility] CBC/Diff Hgb 13.0 g/dL 11.2 - 15.7 04/27/2019 N [facility] CBC/Diff Hct 39.7 % 34.1 - 44.9 04/27/2019 N [facility] CBC/Diff MCV 92.8 fL 83.7 - 99.5 04/27/2019 N [facility] CBC/Diff MCH 30.4 pg 27.6 - 33.1 04/27/2019 N [facility] CBC/Diff MCHC 32.7 g/dL 31.3 - 34.9 04/27/2019 N [facility] CBC/Diff RDW 43.4 fL 38.6 - 50.2 04/27/2019 N [facility] CBC/Diff Platelet 174 x10 '3/microL 126 - 432 04/27/2019 N [facility] CBC/Diff MPV 10.5 fL 9.2 - 12.2 04/27/2019 N [facility] CBC/Diff NRBC 0.0 /100WBC 0.0 - 0.2 04/27/2019 N [facility] CBC/Diff Abs NRBCs 0.00 x1 0'3/microL 0.00 - 0.01 04/27/2019 N [facility] ISTAT ORM Creatinine POC 0.8 mg /dL 0.6 - 1.3 04/06/2019 N Meter: [id number]~Test Lab Technician: [id number] Salma Rosalva
[facility] Renal Funct Index GFR (CKD-EPI) 88.0 mL/min/1.73 m2 08/30/2018 NA GFR calculated based on CKD -EPI Creatinine Equation (2009).
Age(years) Average GFR
20-29 116 mL/min/1.73 m^2
30-39 107 mL/min/1.73 m^2
40-49 99 mL/min/1.73 m^2
50-59 93 mL/min/1.73 m^2
60-69 85 mL/min/1.73 m^2
70+ 75 mL/min/1.73 m^2

Acceptable GFR =>60 mL/min/1.73 m^2
Chronic Kidney Disease <60 mL/min/1.73 m^2
Kidney Failure <15 mL/min/1.73 m^2
[facility] CMP Sodium 145 mmol/L 136 - 145 08/30/2018 N [facility] CMP Potassium 4.5 mmol/L 3.5 - 5.1 08/30/2018 N [facility] CMP Chloride 106 mmol/L 98 - 107 08/30/2018 N [facility] CMP CO2 25 mmol/L 22 - 29 08/30/2018 N [facility] CMP Glucose 94 mg/dL 70 - 99 08/30/2018 N [facility] CMP BUN 13 mg/dL 8 - 23 08/30/2018 N [facility] CMP Creatinine 0.63 mg/dL 0.50 - 0.90 08/30/2018 N Creatinine result is standardized to the internationally accepted Isotope Dilution Mass Spectrometry (IDMS).
[facility] CMP Calcium 9.5 mg/dL 8.8 - 10.2 08/30/2018 N [facility] CMP Total Protein 6.8 g/dL 6.4 - 8.3 08/30/2018 N [facility] CMP Albumin Level 3.9 g/dL 3.5 - 5.2 08/30/2018 N [facility] CMP Bili Total 0.4 mg/dL - <=1.0 08/30/2018 N [facility] CMP Alk Phos 83 Units/L 35 - 105 08/30/2018 N [facility] CMP AST 20 Units/L 10 - 33 08/30/2018 N [facility] CMP ALT(SGPT) 11 Units/L 10 - 33 08/30/2018 N [facility] CMP AGAP 14 3 - 20 08/30/2018 N [facility] Auto Diff Neutrophils 63.1 % 42.7 - 77.1 08/30/2018 N [facility] Auto Diff Lymphs 26.0 % 12.1 - 45.3 08/30/2018 N [facility] Auto Diff Monocytes % 6.9 % 4.4 - 12.5 08/30/2018 N [facility] Auto Diff Eosinophil % 3.0 % 0.0 - 5.6 08/30/2018 N [facility] Auto Diff Basophil % 0.4 % 0.0 - 1.0 08/30/2018 N [facility] Auto Diff Immature Granulocytes % 0. 6 % 0.0 - 1.0 08/30/2018 N [facility] Auto Diff Neutro Absolute 3.2 x1 0'3/microL 1.4 - 6.8 08/30/2018 N [facility] Auto Diff Lymph Absolute 1.3 x1 0'3/microL 0.6 - 3.2 08/30/2018 N [facility] Auto Diff Bollinger Absolute 0.4 x1 0'3/microL 0.2 - 0.9 08/30/2018 N [facility] Auto Diff Eos Absolute 0.2 x1 0'3/microL 0.0 - 0.6 08/30/2018 N [facility] Auto Diff Basophil Absolute 0.0 x1 0'3/microL 0.0 - 0.1 08/30/2018 N [facility] Auto Diff Immature Granulocytes Abs 0.03 x10'3/microL 0.01 - 0.03 08/30/2018 N [facility] CBC/Diff WBC 5.0 x10'3/micro L 5.4 - 10.8 08/30/2018 L [facility] CBC/Diff RBC 3.56 x10'6/micr oL 3.79 - 5.19 08/30/2018 L [facility] CBC/Diff Hgb 9.9 g/dL 11.2 - 15.7 08/30/2018 L [facility] CBC/Diff Hct 33.8 % 34.1 - 44.9 08/30/2018 L [facility] CBC/Diff MCV 94.9 fL 83.7 - 99.5 08/30/2018 N [facility] CBC/Diff MCH 27.8 pg 27.6 - 33.1 08/30/2018 N [facility] CBC/Diff MCHC 29.3 g/dL 31.3 - 34.9 08/30/2018 L [facility] CBC/Diff RDW 49.2 fL 38.6 - 50.2 08/30/2018 N [facility] CBC/Diff Platelet 276 x10 '3/microL 126 - 432 08/30/2018 N [facility] CBC/Diff MPV 10.0 fL 9.2 - 12.2 08/30/2018 N [facility] CBC/Diff NRBC 0.0 /100WBC 0.0 - 0.2 08/30/2018 N [facility] CBC/Diff Abs NRBCs 0.00 x1 0'3/microL 0.00 - 0.01 08/30/2018 N [facility] Transferrin Transferrin 188 mg/dL 200 - 360 08/29/2018 L TIBC: 263.2 mcg/dL
[facility] Renal Funct Index GFR (CKD-EPI) 78.2 mL/min/1.73 m2 08/23/2018 NA GFR calculated based on CKD -EPI Creatinine Equation (2009).
Age(years) Average GFR
20-29 116 mL/min/1.73 m^2
30-39 107 mL/min/1.73 m^2
40-49 99 mL/min/1.73 m^2
50-59 93 mL/min/1.73 m^2
60-69 85 mL/min/1.73 m^2
70+ 75 mL/min/1.73 m^2

Acceptable GFR =>60 mL/min/1.73 m^2
Chronic Kidney Disease <60 mL/min/1.73 m^2
Kidney Failure <15 mL/min/1.73 m^2
[facility] CMP Sodium 146 mmol/L 136 - 145 08/23/2018 H [facility] CMP Potassium 4.1 mmol/L 3.5 - 5.1 08/23/2018 N [facility] CMP Chloride 109 mmol/L 98 - 107 08/23/2018 H [facility] CMP CO2 24 mmol/L 22 - 29 08/23/2018 N [facility] CMP Glucose 39 mg/dL 70 - 109 08/23/2018 CRIT Results called to Mane Diaz MD by [email or web address] 10/23/2017 20:11:56 EST
Results read back.
[facility] CMP BUN 9 mg/dL 6 - 26 08/23/2018 N [facility] CMP Creatinine 0.75 mg/dL 0.50 - 0.90 08/23/2018 N [facility] CMP Calcium 9.2 mg/dL 8.8 - 10.2 08/23/2018 N [facility] CMP Total Protein 6.3 g/dL 6.6 - 8.7 08/23/2018 L [facility] CMP Albumin Level 3.2 g/dL 3.5 - 5.2 08/23/2018 L [facility] CMP Bili Total 0.20 mg/dL 0.10 - 1.20 08/23/2018 N [facility] CMP Alk Phos 66 Units/L 35 - 105 08/23/2018 N [facility] CMP AST 16 Units/L 10 - 32 08/23/2018 N [facility] CMP ALT(SGPT) 8 Units/L 2 - 33 08/23/2018 N [facility] CMP Globulin 3 08/23/2018 NA [facility] CMP Albumin/Globulin Ratio 1 08/23/2018 NA [facility] CMP AGAP 13 3 - 20 08/23/2018 N [facility] Ferritin Ferritin 189.3 ng/mL 15.0 - 150.0 08/23/2018 H [facility] Iron Serum Iron 35.0 mcg/dL 37.0 - 145.0 08/23/2018 L [facility] Auto Diff Neutrophils 52.1 % 42.7 - 77.1 08/23/2018 N [facility] Auto Diff Lymphs 31.8 % 12.1 - 45.3 08/23/2018 N [facility] Auto Diff Monocytes % 11.4 % 4.4 - 12.5 08/23/2018 N [facility] Auto Diff Eosinophil % 3.6 % 0.0 - 5.6 08/23/2018 N [facility] Auto Diff Basophil % 0.3 % 0.0 - 1.0 08/23/2018 N [facility] Auto Diff Immature Granulocytes % 0. 8 % 0.0 - 0.5 08/23/2018 H [facility] Auto Diff Neutro Absolute 2.0 x1 0'3/microL 1.4 - 6.8 08/23/2018 N [facility] Auto Diff Lymph Absolute 1.2 x1 0'3/microL 0.6 - 3.2 08/23/2018 N [facility] Auto Diff Bollinger Absolute 0.4 x1 0'3/microL 0.2 - 0.9 08/23/2018 N [facility] Auto Diff Eos Absolute 0.1 x1 0'3/microL 0.0 - 0.6 08/23/2018 N [facility] Auto Diff Basophil Absolute 0.0 x1 0'3/microL 0.0 - 0.1 08/23/2018 N [facility] Auto Diff Immature Granulocytes Abs 0.0300 x10'3/microL 0.0000 - 0.0300 08/23/2018 N [facility] CBC/Diff WBC 3.87 x10'3/micr oL 3.40 - 10.10 08/23/2018 N [facility] CBC/Diff RBC 2.65 x10'6/micr oL 4.00 - 5.30 08/23/2018 L [facility] CBC/Diff Hgb 7.6 g/dL 11.6 - 15.4 08/23/2018 L [facility] CBC/Diff Hct 26.0 % 35.9 - 46.1 08/23/2018 L [facility] CBC/Diff MCV 98.1 fL 83.7 - 99.5 08/23/2018 N [facility] CBC/Diff MCH 28.7 pg 27.6 - 33.1 08/23/2018 N [facility] CBC/Diff MCHC 29.2 g/dL 31.3 - 34.9 08/23/2018 L [facility] CBC/Diff RDW 49.0 fL 38.6 - 50.2 08/23/2018 N [facility] CBC/Diff Platelet 215 x10 '3/microL 126 - 432 08/23/2018 N [facility] CBC/Diff MPV 10.8 fL 9.2 - 12.2 08/23/2018 N [facility] Renal Funct Index GFR (CKD-EPI) 61.9 mL/min/1.73 m2 08/15/2018 NA GFR calculated based on CKD -EPI Creatinine Equation (2009).
Age(years) Average GFR
20-29 116 mL/min/1.73 m^2
30-39 107 mL/min/1.73 m^2
40-49 99 mL/min/1.73 m^2
50-59 93 mL/min/1.73 m^2
60-69 85 mL/min/1.73 m^2
70+ 75 mL/min/1.73 m^2

Acceptable GFR =>60 mL/min/1.73 m^2
Chronic Kidney Disease <60 mL/min/1.73 m^2
Kidney Failure <15 mL/min/1.73 m^2
[facility] BMP Sodium 139 mmol/L 136 - 145 08/15/2018 N [facility] BMP Potassium 4.8 mmol/L 3.5 - 5.1 08/15/2018 N [facility] BMP Chloride 103 mmol/L 98 - 107 08/15/2018 N [facility] BMP AGAP 14 3 - 20 08/15/2018 N [facility] BMP CO2 22 mmol/L 22 - 29 08/15/2018 N [facility] BMP Glucose 137 mg/dL 70 - 99 08/15/2018 H [facility] BMP BUN 28 mg/dL 8 - 23 08/15/2018 H [facility] BMP Creatinine 0.91 mg/dL 0.50 - 0.90 08/15/2018 H Creatinine result is standardized to the internationally accepted Isotope Dilution Mass Spectrometry (IDMS).
[facility] BMP Calcium 9.2 mg/dL 8.8 - 10.2 08/15/2018 N [facility] Magnesium Magnesium 1.6 mg/dL 1.6 - 2.4 08/15/2018 N [facility] CBC WBC 4.8 x10'3/microL 5.4 - 10.8 08/15/2018 L [facility] CBC RBC 2.94 x10'6/microL 3.79 - 5.19 08/15/2018 L [facility] CBC Hgb 8.5 g/dL 11.2 - 15.7 08/15/2018 L [facility] CBC Hct 27.3 % 34.1 - 44.9 08/15/2018 L [facility] CBC MCV 92.9 fL 83.7 - 99.5 08/15/2018 N [facility] CBC MCH 28.9 pg 27.6 - 33.1 08/15/2018 N [facility] CBC MCHC 31.1 g/dL 31.3 - 34.9 08/15/2018 L [facility] CBC RDW 43.8 fL 38.6 - 50.2 08/15/2018 N [facility] CBC Platelet 169 x10'3/microL 126 - 432 08/15/2018 N [facility] CBC MPV 10.5 fL 9.2 - 12.2 08/15/2018 N [facility] CBC NRBC 0.0 /100WBC 0.0 - 0.2 08/15/2018 N [facility] CBC Abs NRBCs 0.00 x10'3/m icroL 0.00 - 0.01 08/15/2018 N [facility] Glu POC ORM Glucose Level (POC) 130 mg/dL 70 - 100 08/14/2018 H Meter: [id number]~Test Lab Technician: [id number] Shereen Shawshailesh
[facility] Renal Funct Index GFR (CKD-EPI) 63.6 mL/min/1.73 m2 08/14/2018 NA GFR calculated based on CKD -EPI Creatinine Equation (2009).
Age(years) Average GFR
20-29 116 mL/min/1.73 m^2
30-39 107 mL/min/1.73 m^2
40-49 99 mL/min/1.73 m^2
50-59 93 mL/min/1.73 m^2
60-69 85 mL/min/1.73 m^2
70+ 75 mL/min/1.73 m^2

Acceptable GFR =>60 mL/min/1.73 m^2
Chronic Kidney Disease <60 mL/min/1.73 m^2
Kidney Failure <15 mL/min/1.73 m^2
[facility] BMP Sodium 140 mmol/L 136 - 145 08/14/2018 N [facility] BMP Potassium 5.5 mmol/L 3.5 - 5.1 08/14/2018 H [facility] BMP Chloride 107 mmol/L 98 - 107 08/14/2018 N [facility] BMP AGAP 9 3 - 20 08/14/2018 N [facility] BMP CO2 24 mmol/L 22 - 29 08/14/2018 N [facility] BMP Glucose 194 mg/dL 70 - 99 08/14/2018 H [facility] BMP BUN 22 mg/dL 8 - 23 08/14/2018 N [facility] BMP Creatinine 0.89 mg/dL 0.50 - 0.90 08/14/2018 N Creatinine result is standardized to the internationally accepted Isotope Dilution Mass Spectrometry (IDMS).
[facility] BMP Calcium 8.6 mg/dL 8.8 - 10.2 08/14/2018 L [facility] CBC WBC 7.8 x10'3/microL 5.4 - 10.8 08/14/2018 N [facility] CBC RBC 2.91 x10'6/microL 3.79 - 5.19 08/14/2018 L [facility] CBC Hgb 8.3 g/dL 11.2 - 15.7 08/14/2018 L [facility] CBC Hct 27.4 % 34.1 - 44.9 08/14/2018 L [facility] CBC MCV 94.2 fL 83.7 - 99.5 08/14/2018 N [facility] CBC MCH 28.5 pg 27.6 - 33.1 08/14/2018 N [facility] CBC MCHC 30.3 g/dL 31.3 - 34.9 08/14/2018 L [facility] CBC RDW 45.2 fL 38.6 - 50.2 08/14/2018 N [facility] CBC Platelet 194 x10'3/microL 126 - 432 08/14/2018 N [facility] CBC MPV 10.8 fL 9.2 - 12.2 08/14/2018 N [facility] CBC NRBC 0.0 /100WBC 0.0 - 0.2 08/14/2018 N [facility] CBC Abs NRBCs 0.00 x10'3/m icroL 0.00 - 0.01 08/14/2018 N [facility] Glu POC ORM Glucose Level (POC) 166 mg/dL 70 - 100 08/13/2018 H Meter: [id number]~Test Lab Technician: [id number] Irene Basilio
[facility] Glu POC ORM Glucose Level (POC) 153 mg/dL 70 - 100 08/13/2018 H Meter: [id number]~Test Lab Technician: [id number] Otilia Mattalan
[facility] Renal Funct Index GFR (CKD-EPI) 55.9 mL/min/1.73 m2 08/13/2018 NA GFR calculated based on CKD -EPI Creatinine Equation (2009).
Age(years) Average GFR
20-29 116 mL/min/1.73 m^2
30-39 107 mL/min/1.73 m^2
40-49 99 mL/min/1.73 m^2
50-59 93 mL/min/1.73 m^2
60-69 85 mL/min/1.73 m^2
70+ 75 mL/min/1.73 m^2

Acceptable GFR =>60 mL/min/1.73 m^2
Chronic Kidney Disease <60 mL/min/1.73 m^2
Kidney Failure <15 mL/min/1.73 m^2
[facility] BMP Sodium 139 mmol/L 136 - 145 08/13/2018 N [facility] BMP Potassium 4.7 mmol/L 3.5 - 5.1 08/13/2018 N [facility] BMP Chloride 103 mmol/L 98 - 107 08/13/2018 N [facility] BMP AGAP 12 3 - 20 08/13/2018 N [facility] BMP CO2 24 mmol/L 22 - 29 08/13/2018 N [facility] BMP Glucose 150 mg/dL 70 - 99 08/13/2018 H [facility] BMP BUN 29 mg/dL 8 - 23 08/13/2018 H [facility] BMP Creatinine 0.99 mg/dL 0.50 - 0.90 08/13/2018 H Creatinine result is standardized to the internationally accepted Isotope Dilution Mass Spectrometry (IDMS).
[facility] BMP Calcium 9.1 mg/dL 8.8 - 10.2 08/13/2018 N [facility] Auto Diff Neutrophils 67.9 % 42.7 - 77.1 08/13/2018 N [facility] Auto Diff Lymphs 20.9 % 12.1 - 45.3 08/13/2018 N [facility] Auto Diff Monocytes % 8.8 % 4.4 - 12.5 08/13/2018 N [facility] Auto Diff Eosinophil % 1.8 % 0.0 - 5.6 08/13/2018 N [facility] Auto Diff Basophil % 0.3 % 0.0 - 1.0 08/13/2018 N [facility] Auto Diff Immature Granulocytes % 0. 3 % 0.0 - 1.0 08/13/2018 N [facility] Auto Diff Neutro Absolute 4.1 x1 0'3/microL 1.4 - 6.8 08/13/2018 N [facility] Auto Diff Lymph Absolute 1.3 x1 0'3/microL 0.6 - 3.2 08/13/2018 N [facility] Auto Diff Bollinger Absolute 0.5 x1 0'3/microL 0.2 - 0.9 08/13/2018 N [facility] Auto Diff Eos Absolute 0.1 x1 0'3/microL 0.0 - 0.6 08/13/2018 N [facility] Auto Diff Basophil Absolute 0.0 x1 0'3/microL 0.0 - 0.1 08/13/2018 N [facility] Auto Diff Immature Granulocytes Abs 0.02 x10'3/microL 0.01 - 0.03 08/13/2018 N [facility] CBC/Diff WBC 6.4 x10'3/micro L 5.4 - 10.8 08/13/2018 N [facility] CBC/Diff RBC 3.35 x10'6/micr oL 3.79 - 5.19 08/13/2018 L [facility] CBC/Diff Hgb 9.4 g/dL 11.2 - 15.7 08/13/2018 L [facility] CBC/Diff Hct 31.0 % 34.1 - 44.9 08/13/2018 L [facility] CBC/Diff MCV 92.5 fL 83.7 - 99.5 08/13/2018 N [facility] CBC/Diff MCH 28.1 pg 27.6 - 33.1 08/13/2018 N [facility] CBC/Diff MCHC 30.3 g/dL 31.3 - 34.9 08/13/2018 L [facility] CBC/Diff RDW 43.2 fL 38.6 - 50.2 08/13/2018 N [facility] CBC/Diff Platelet 186 x10 '3/microL 126 - 432 08/13/2018 N [facility] CBC/Diff MPV 10.6 fL 9.2 - 12.2 08/13/2018 N [facility] CBC/Diff NRBC 0.0 /100WBC 0.0 - 0.2 08/13/2018 N [facility] CBC/Diff Abs NRBCs 0.00 x1 0'3/microL 0.00 - 0.01 08/13/2018 N [facility] UA Auto CI UA Spec Type Shore Cath 08/12/2018 N [facility] UA Auto CI UA Color Yellow 08/12/2018 N [facility] UA Auto CI UA Appear Cloudy Clear 08/12/2018 @ [facility] UA Auto CI UA Spec Grav 1.023 1.005 - 1.030 08/12/2018 N [facility] UA Auto CI UA pH 5.5 5.0 - 8.0 08/12/2018 N [facility] UA Auto CI UA Protein 1+ Negative 08/12/2018 @ [facility] UA Auto CI UA Glucose Negat krissy Negative 08/12/2018 N [facility] UA Auto CI UA Ketones Negat krissy Negative 08/12/2018 N [facility] UA Auto CI UA Bili Negative Negative 08/12/2018 N [facility] UA Auto CI UA Blood Trace Negative 08/12/2018 @ [facility] UA Auto CI UA Nitrite Negat krissy Negative 08/12/2018 N [facility] UA Auto CI UA Leuk Est 3+ Negative 08/12/2018 @ [facility] UA Auto CI MicroscopicDone? Yes 08/12/2018 N [facility] UA Auto CI Culture? Yes 08/12/2018 N [facility] UA Auto CI UA RBC >30 /hpf 0 - 3 08/12/2018 H [facility] UA Auto CI UA WBC >60 /hpf 0 - 6 08/12/2018 H [facility] UA Auto CI UA Squamous Epithelial Ra re None 08/12/2018 @ [facility] UA Auto CI UA Bacteria Trace 08/12/2018 @ [facility] UA Auto CI UA Mucous Trace 08/12/2018 N [facility] UA Auto CI UA Amorphous Crystals Tra ce 08/12/2018 @ [facility] UA Auto CI UA Hyaline Casts 17 /L pf 0 - 3 08/12/2018 H [facility] C Urine C Urine

<b>Culture,Urine:</b>
[facility]
&l t;br/>Laboratory Medical Clinical Laboratory Phone:
Director [phone]
Silverio Cameron, [address] [place] [address]
[facility] [place] [address]-

Microbiology

MDIL = HEBER Dilution MINT = HEBER Interp MILLIE = Etest EINT = Etest Interp KINT = Nunez
Dilution Flores Interp

PROCEDURE: Culture Urine []
[facility] S[facility]:
COLLECTED DATE/TIME: 08/12/2018 22:47 EDT START DATE/TIME: 08/12/2018 23:13 EDT
FREE TEXT SOURCE:

FINAL REPORTS
Final Report []
Verified Date/Time/Personnel: 08/14/2018 12:31 LEONID LIN
<10,000 cfu/ml Escherichia coli
Sensi results will be printed on culture # [id number]

PRELIMINARY REPORTS
Preliminary Report []
Verified Date/Time/Personnel: 08/14/2018 12:31 LEONID LIN
<10,000 cfu/ml Escherichia coli
[facility] results will be printed on culture # [id number]

Admit:08/12/2018 Patient KASEY RICKS
Name:
Disch: MR#:[id number]
Nursing 03 [facility] Admitting TODD DIAZ MD
Unit: Physician:
: 1945 Age: 73 years Attending TODD DIAZ MD
Physician:
Sex: Female Print System Generated
ID:
Patient Inpatient Chart Request [id number]
Type: ID:
Print Date/ 08/14/2018 12:31 [facility]
Time:
Copy
To:
Privileged and Confidential do not re-release
08/12/[address] [facility] ABORh ABORh Interp O POS 08/12/2018 NA [facility] ABSC 3 Cell ABSC 3 Cell Interp NEG 08/12/2018 N [facility] Renal Funct Index GFR (CKD-EPI) 86.7 mL/min/1.73 m2 08/12/2018 NA GFR calculated based on CKD -EPI Creatinine Equation (2009).
Age(years) Average GFR
20-29 116 mL/min/1.73 m^2
30-39 107 mL/min/1.73 m^2
40-49 99 mL/min/1.73 m^2
50-59 93 mL/min/1.73 m^2
60-69 85 mL/min/1.73 m^2
70+ 75 mL/min/1.73 m^2

Acceptable GFR =>60 mL/min/1.73 m^2
Chronic Kidney Disease <60 mL/min/1.73 m^2
Kidney Failure <15 mL/min/1.73 m^2
[facility] CMP Sodium 142 mmol/L 136 - 145 08/12/2018 N [facility] CMP Potassium 5.0 mmol/L 3.5 - 5.1 08/12/2018 N [facility] CMP Chloride 105 mmol/L 98 - 107 08/12/2018 N [facility] CMP CO2 26 mmol/L 22 - 29 08/12/2018 N [facility] CMP Glucose 195 mg/dL 70 - 99 08/12/2018 H [facility] CMP BUN 29 mg/dL 8 - 23 08/12/2018 H [facility] CMP Creatinine 0.66 mg/dL 0.50 - 0.90 08/12/2018 N Creatinine result is standardized to the internationally accepted Isotope Dilution Mass Spectrometry (IDMS).
[facility] CMP Calcium 10.3 mg/dL 8.8 - 10.2 08/12/2018 H [facility] CMP Total Protein 7.6 g/dL 6.4 - 8.3 08/12/2018 N [facility] CMP Albumin Level 4.2 g/dL 3.5 - 5.2 08/12/2018 N [facility] CMP Bili Total 0.6 mg/dL - <=1.0 08/12/2018 N [facility] CMP Alk Phos 79 Units/L 35 - 105 08/12/2018 N [facility] CMP AST 21 Units/L 10 - 33 08/12/2018 N [facility] CMP ALT(SGPT) 20 Units/L 10 - 33 08/12/2018 N [facility] CMP AGAP 11 3 - 20 08/12/2018 N [facility] Magnesium Magnesium 1.7 mg/dL 1.6 - 2.4 08/12/2018 N [facility] PTT PTT 29.7 second 23.3 - 34.2 08/12/2018 N [facility] Protime PT 13.8 second 11.7 - 14.3 08/12/2018 N [facility] Protime INR 1.1 08/12/2018 NA Therapeutic Range 2.0 to 3.0
[facility] UA Auto CI UA Spec Type Clean Catch 08/12/2018 N [facility] UA Auto CI UA Color Yellow 08/12/2018 N [facility] UA Auto CI UA Appear Hazy Clear 08/12/2018 @ [facility] UA Auto CI UA Spec Grav 1.016 1.005 - 1.030 08/12/2018 N [facility] UA Auto CI UA pH 5.5 5.0 - 8.0 08/12/2018 N [facility] UA Auto CI UA Protein Trace Negative 08/12/2018 @ [facility] UA Auto CI UA Glucose Negat krissy Negative 08/12/2018 N [facility] UA Auto CI UA Ketones Negat krissy Negative 08/12/2018 N [facility] UA Auto CI UA Bili Negative Negative 08/12/2018 N [facility] UA Auto CI UA Blood Negative Negative 08/12/2018 N [facility] UA Auto CI UA Nitrite Posit krissy Negative 08/12/2018 @ [facility] UA Auto CI UA Leuk Est 2+ Negative 08/12/2018 @ [facility] UA Auto CI MicroscopicDone? Yes 08/12/2018 N [facility] UA Auto CI Culture? Yes 08/12/2018 N [facility] UA Auto CI UA RBC 1 /hpf 0 - 3 08/12/2018 N [facility] UA Auto CI UA WBC 10 /hpf 0 - 6 08/12/2018 H [facility] UA Auto CI UA Squamous Epithelial Ma ny None 08/12/2018 @ [facility] UA Auto CI UA Bacteria 1+ 08/12/2018 @ [facility] UA Auto CI UA Mucous Trace 08/12/2018 N [facility] UA Auto CI UA Uric Acid Crystals Rar e 08/12/2018 @ [facility] Auto Diff Neutrophils 65.9 % 42.7 - 77.1 08/12/2018 N [facility] Auto Diff Lymphs 23.4 % 12.1 - 45.3 08/12/2018 N [facility] Auto Diff Monocytes % 6.8 % 4.4 - 12.5 08/12/2018 N [facility] Auto Diff Eosinophil % 2.9 % 0.0 - 5.6 08/12/2018 N [facility] Auto Diff Basophil % 0.6 % 0.0 - 1.0 08/12/2018 N [facility] Auto Diff Immature Granulocytes % 0. 4 % 0.0 - 1.0 08/12/2018 N [facility] Auto Diff Neutro Absolute 4.5 x1 0'3/microL 1.4 - 6.8 08/12/2018 N [facility] Auto Diff Lymph Absolute 1.6 x1 0'3/microL 0.6 - 3.2 08/12/2018 N [facility] Auto Diff Bollinger Absolute 0.5 x1 0'3/microL 0.2 - 0.9 08/12/2018 N [facility] Auto Diff Eos Absolute 0.2 x1 0'3/microL 0.0 - 0.6 08/12/2018 N [facility] Auto Diff Basophil Absolute 0.0 x1 0'3/microL 0.0 - 0.1 08/12/2018 N [facility] Auto Diff Immature Granulocytes Abs 0.03 x10'3/microL 0.01 - 0.03 08/12/2018 N [facility] CBC/Diff WBC 6.8 x10'3/micro L 5.4 - 10.8 08/12/2018 N [facility] CBC/Diff RBC 4.07 x10'6/micr oL 3.79 - 5.19 08/12/2018 N [facility] CBC/Diff Hgb 11.5 g/dL 11.2 - 15.7 08/12/2018 N [facility] CBC/Diff Hct 36.5 % 34.1 - 44.9 08/12/2018 N [facility] CBC/Diff MCV 89.7 fL 83.7 - 99.5 08/12/2018 N [facility] CBC/Diff MCH 28.3 pg 27.6 - 33.1 08/12/2018 N [facility] CBC/Diff MCHC 31.5 g/dL 31.3 - 34.9 08/12/2018 N [facility] CBC/Diff RDW 41.1 fL 38.6 - 50.2 08/12/2018 N [facility] CBC/Diff Platelet 215 x10 '3/microL 126 - 432 08/12/2018 N [facility] CBC/Diff MPV 10.5 fL 9.2 - 12.2 08/12/2018 N [facility] CBC/Diff NRBC 0.0 /100WBC 0.0 - 0.2 08/12/2018 N [facility] CBC/Diff Abs NRBCs 0.00 x1 0'3/microL 0.00 - 0.01 08/12/2018 N [facility] C Urine C Urine

<b>Culture,Urine:</b>
[facility]
&l t;br/>Laboratory Medical Clinical Laboratory Phone:
Director [phone]
Silverio Cameron, [address] [place] [address]
[place] [address]-

Microbiology

MDIL = HEBER Dilution MINT = HEBER Interp MILLIE = Etest EINT = Etest Interp KINT = Nunez
Dilution Flores Interp

PROCEDURE: Culture Urine []
SOURCE: Urine BODY SITE:
COLLECTED DATE/TIME: 08/12/2018 09:47 EDT START DATE/TIME: 08/12/2018 11:34 EDT
FREE TEXT SOURCE:

FINAL REPORTS
Final Report []
Verified Date/Time/Personnel: 08/14/2018 09:36 EST LEONID MORRISSEY
>100,000 cfu/ml Escherichia coli
Test performed by

[facility]
[address] [place] [address]
[place] [address]

PRELIMINARY REPORTS
Preliminary Report []
Verified Date/Time/Personnel: 08/13/2018 09:24 EDT LEONID MORRISSEY
>100,000 cfu/ml Escherichia coli
Susceptibility to follow.
Test performed by
[facility]
[address] [place] [address]
[place] [address]

SUSCEPTIBILITY RESULTS
Escherichia coli
Antibiotic HEBER Dilution HEBER Interpretation
Amikacin <=2 Susceptible
Ampicillin <=2 Susceptible
Ampicillin/Sulbactam <=2 Susceptible
Aztreonam <=1 Susceptible
Cefazolin <=4 Susceptible
Cefepime <=1 Susceptible
Ceftriaxone <=1 Susceptible

Admit:08/12/2018 Patient KASEY RICKS
Name:
Disch: MR#:[id number] [facility] SAULT#:[id number]
Nursing 03 CVICU-ORM Admitting TODD DIAZ MD
Unit: Physician:
: 1945 Age: 73 years Attending TODD DIAZ MD
Physician:
Sex: Female [employer] Generated
ID:
Patient Inpatient Chart Request [id number]
Type: ID:
Print Date/ 08/14/2018 09:36 [facility]
Time:
Copy
To:
Privileged and Confidential do not re-release
[facility]

Laboratory Medical Clinical Laboratory Phone:
Director [phone]
Silverio [address]
[place] [address]-

Microbiology

MDIL = HEBER Dilution MINT = HEBER Interp MILLIE = Etest EINT = Etest Interp KINT = Nunez
Dilution Flores Interp

SUSCEPTIBILITY RESULTS
Escherichia coli
Antibiotic HEBER Dilution HEBER Interpretation
Ciprofloxacin <=0.25 Susceptible
Ertapenem <=0.5 Susceptible
ESBL NEG NEG
Gentamicin <=1 Susceptible
Meropenem <=0.25 Susceptible
Nitro furantoin <=16 Susceptible
Piperacillin/Tazo <=4 Susceptible
Tobramycin <=1 Susceptible
Trimethoprim/Sulfa <=20 Susceptible

Patient KASEY RICKS MR#: [id number]; [id number]; [facility] SAULT#:[id number]
Name: [id number]
Print Date/ 08/14/2018 09:36 EST : 1945
Time:
Privileged and Confidential do not re-release
08/12/2018 [facility] Renal Funct Index GFR (CKD-EPI) 62.8 mL/min/1.73 m2 08/03/2018 NA GFR calculated based on CKD -EPI Creatinine Equation (2009).
Age(years) Average GFR
20-29 116 mL/min/1.73 m^2
30-39 107 mL/min/1.73 m^2
40-49 99 mL/min/1.73 m^2
50-59 93 mL/min/1.73 m^2
60-69 85 mL/min/1.73 m^2
70+ 75 mL/min/1.73 m^2

Acceptable GFR =>60 mL/min/1.73 m^2
Chronic Kidney Disease <60 mL/min/1.73 m^2
Kidney Failure <15 mL/min/1.73 m^2
[facility] Sodium 136 mmol/L 135 - 145 08/03/2018 N [facility] Potassium 4.3 mmol/L 3.3 - 4.9 08/03/2018 N [facility] Chloride 100 mmol/L 101 - 111 08/03/2018 L [facility] AGAP 13.0 6.0 - 16.0 08/03/2018 N [facility] CO2 23 mmol/L 21 - 31 08/03/2018 N [facility] Glucose 335 mg/dL 68 - 99 08/03/2018 H [facility] BUN 39 mg/dL 6 - 25 08/03/2018 H [facility] Creatinine 0.90 mg/dL 0.44 - 1.03 08/03/2018 N [facility] BMP Calcium 10.1 mg/dL 8.5 - 10.5 08/03/2018 N [facility] Magnesium Magnesium 1.3 mg/dL 1.8 - 2.5 08/03/2018 L [facility] Auto Diff Neutrophils 58.6 % 45.0 - 70.0 08/03/2018 N [facility] Auto Diff Lymphs 30.7 % 19.0 - 40.0 08/03/2018 N [facility] Auto Diff Monocytes % 7.1 % 4.2 - 12.4 08/03/2018 N [facility] Auto Diff Eosinophil % 2.8 % 0.0 - 6.0 08/03/2018 N [facility] Auto Diff Basophil % 0.4 % 0.0 - 2.3 08/03/2018 N [facility] Auto Diff Immature Granulocytes % 0. 4 % 0.0 - 1.8 08/03/2018 N [facility] Auto Diff Neutro Absolute 3.1 x1 0'3/microL 1.8 - 7.2 08/03/2018 N [facility] Auto Diff Lymph Absolute 1.6 x1 0'3/microL 1.1 - 4.2 08/03/2018 N [facility] Auto Diff Bollinger Absolute 0.4 x1 0'3/microL 0.0 - 0.7 08/03/2018 N [facility] Auto Diff Eos Absolute 0.15 x 10'3/microL 0.00 - 0.50 08/03/2018 N [facility] Auto Diff Basophil Absolute 0.02 x 10'3/microL 0.00 - 0.22 08/03/2018 N [facility] Auto Diff Immature Granulocytes Abs 0.02 x10'3/microL 0.00 - 0.18 08/03/2018 N [facility] CBC/Diff WBC 5.4 x10'3/micro L 4.8 - 10.8 08/03/2018 N [facility] CBC/Diff RBC 4.01 mi llion/microL 4.20 - 5.40 08/03/2018 L [facility] CBC/Diff Hgb 11.4 g/dL 12.0 - 16.0 08/03/2018 L [facility] CBC/Diff Hct 36.0 % 37.0 - 47.0 08/03/2018 L [facility] CBC/Diff MCV 89.8 fL 80.0 - 99.0 08/03/2018 N [facility] CBC/Diff MCH 28.4 pg 27.0 - 33.0 08/03/2018 N [facility] CBC/Diff MCHC 31.7 g/dL 33.0 - 36.5 08/03/2018 L [facility] CBC/Diff RDW 12.4 % 11.9 - 17.7 08/03/2018 N [facility] CBC/Diff Platelet 271 x10 '3/microL 150 - 400 08/03/2018 N [facility] CBC/Diff MPV 10.6 fL 7.4 - 10.4 08/03/2018 H [facility] PF P2Y12 Pt on P2Y12? No 08/02/2018 N [facility] PF P2Y12 PRU 226 Unit 08/02/2018 NA Result Interpretation:
Studies have shown that platelet reactivity (PRU) >208 for patients receiving P2Y12 antiplatelet therapy may have suboptimal platelet inhibition and increased risk of cardiac events.

Presurgical Application:
In general, patients with a PRU > or = 259 after discontinuation of P2Y12 antiplatelet therapy are considered safe for surgical procedures.
[facility] ABORh ABORh Interp O POS 08/02/2018 NA [facility] ABSC 3 Cell ABSC 3 Cell Interp NEG 08/02/2018 N [facility] Renal Funct Index GFR (CKD-EPI) 65.4 mL/min/1.73 m2 08/02/2018 NA GFR calculated based on CKD -EPI Creatinine Equation (2009).
Age(years) Average GFR
20-29 116 mL/min/1.73 m^2
30-39 107 mL/min/1.73 m^2
40-49 99 mL/min/1.73 m^2
50-59 93 mL/min/1.73 m^2
60-69 85 mL/min/1.73 m^2
70+ 75 mL/min/1.73 m^2

Acceptable GFR =>60 mL/min/1.73 m^2
Chronic Kidney Disease <60 mL/min/1.73 m^2
Kidney Failure <15 mL/min/1.73 m^2
[facility] CMP Sodium 141 mmol/L 136 - 145 08/02/2018 N [facility] CMP Potassium 4.0 mmol/L 3.5 - 5.1 08/02/2018 N [facility] CMP Chloride 103 mmol/L 98 - 107 08/02/2018 N [facility] CMP CO2 21 mmol/L 22 - 29 08/02/2018 L [facility] CMP Glucose 317 mg/dL 70 - 99 08/02/2018 H [facility] CMP BUN 34 mg/dL 8 - 23 08/02/2018 H [facility] CMP Creatinine 0.87 mg/dL 0.50 - 0.90 08/02/2018 N Creatinine result is standardized to the internationally accepted Isotope Dilution Mass Spectrometry (IDMS).
[facility] CMP Calcium 10.3 mg/dL 8.8 - 10.2 08/02/2018 H [facility] CMP Total Protein 6.9 g/dL 6.4 - 8.3 08/02/2018 N [facility] CMP Albumin Level 4.2 g/dL 3.5 - 5.2 08/02/2018 N [facility] CMP Bili Total 0.4 mg/dL - <=1.0 08/02/2018 N [facility] CMP Alk Phos 87 Units/L 35 - 105 08/02/2018 N [facility] CMP AST 14 Units/L 10 - 08/02/2018 N [facility] CMP ALT(SGPT) 24 Units/L 10 - 08/02/2018 N [facility] CMP AGAP 17 3 - 20 08/02/2018 N [facility] Magnesium Magnesium 1.4 mg/dL 1.6 - 2.4 08/02/2018 L [facility] PTT PTT 30.7 second 23.3 - 34.2 08/02/2018 N [facility] Protime PT 14.1 second 11.7 - 14.3 08/02/2018 N [facility] Protime INR 1.1 08/02/2018 NA Therapeutic Range 2.0 to 3.0
[facility] UA Auto CI UA Spec Type Clean Catch 08/02/2018 N [facility] UA Auto CI UA Color Light -Yellow 08/02/2018 N [facility] UA Auto CI UA Appear Clear Clear 08/02/2018 N [facility] UA Auto CI UA Spec Grav 1.014 1.005 - 1.030 08/02/2018 N [facility] UA Auto CI UA pH 5.0 5.0 - 8.0 08/02/2018 N [facility] UA Auto CI UA Protein 1+ Negative 08/02/2018 @ [facility] UA Auto CI UA Glucose 3+ Negative 08/02/2018 @ [facility] UA Auto CI UA Ketones Negat krissy Negative 08/02/2018 N [facility] UA Auto CI UA Bili Negative Negative 08/02/2018 N [facility] UA Auto CI UA Blood Negative Negative 08/02/2018 N [facility] UA Auto CI UA Nitrite Negat krissy Negative 08/02/2018 N [facility] UA Auto CI UA Leuk Est Negat krissy Negative 08/02/2018 N [facility] UA Auto CI MicroscopicDone? Yes 08/02/2018 N [facility] UA Auto CI Culture? No 08/02/2018 N [facility] UA Auto CI UA RBC 1 /hpf 0 - 3 08/02/2018 N [facility] UA Auto CI UA WBC 1 /hpf 0 - 6 08/02/2018 N [facility] UA Auto CI UA Squamous Epithelial Fe w None 08/02/2018 @ [facility] UA Auto CI UA Mucous Trace 08/02/2018 N [facility] UA Auto CI UA Hyaline Casts 3 /Lp f 0 - 3 08/02/2018 N [facility] Auto Diff Neutrophils 62.7 % 42.7 - 77.1 08/02/2018 N [facility] Auto Diff Lymphs 26.8 % 12.1 - 45.3 08/02/2018 N [facility] Auto Diff Monocytes % 7.3 % 4.4 - 12.5 08/02/2018 N [facility] Auto Diff Eosinophil % 2.4 % 0.0 - 5.6 08/02/2018 N [facility] Auto Diff Basophil % 0.5 % 0.0 - 1.0 08/02/2018 N [facility] Auto Diff Immature Granulocytes % 0. 3 % 0.0 - 1.0 08/02/2018 N [facility] Auto Diff Neutro Absolute 3.7 x1 0'3/microL 1.4 - 6.8 08/02/2018 N [facility] Auto Diff Lymph Absolute 1.6 x1 0'3/microL 0.6 - 3.2 08/02/2018 N [facility] Auto Diff Bollinger Absolute 0.4 x1 0'3/microL 0.2 - 0.9 08/02/2018 N [facility] Auto Diff Eos Absolute 0.1 x1 0'3/microL 0.0 - 0.6 08/02/2018 N [facility] Auto Diff Basophil Absolute 0.0 x1 0'3/microL 0.0 - 0.1 08/02/2018 N [facility] Auto Diff Immature Granulocytes Abs 0.02 x10'3/microL 0.01 - 0.03 08/02/2018 N [facility] CBC/Diff WBC 5.9 x10'3/micro L 5.4 - 10.8 08/02/2018 N [facility] CBC/Diff RBC 4.08 x10'6/micr oL 3.79 - 5.19 08/02/2018 N [facility] CBC/Diff Hgb 11.7 g/dL 11.2 - 15.7 08/02/2018 N [facility] CBC/Diff Hct 36.8 % 34.1 - 44.9 08/02/2018 N [facility] CBC/Diff MCV 90.2 fL 83.7 - 99.5 08/02/2018 N [facility] CBC/Diff MCH 28.7 pg 27.6 - 33.1 08/02/2018 N [facility] CBC/Diff MCHC 31.8 g/dL 31.3 - 34.9 08/02/2018 N [facility] CBC/Diff RDW 41.1 fL 38.6 - 50.2 08/02/2018 N [facility] CBC/Diff Platelet 252 x10 '3/microL 126 - 432 08/02/2018 N [facility] CBC/Diff MPV 10.4 fL 9.2 - 12.2 08/02/2018 N [facility] CBC/Diff NRBC 0.0 /100WBC 0.0 - 0.2 08/02/2018 N [facility] CBC/Diff Abs NRBCs 0.00 x1 0'3/microL 0.00 - 0.01 08/02/2018 N [facility] H and H Hgb 10.7 g/dL 11.2 - 15.7 07/19/2018 L [facility] H and H Hct 33.4 % 34.1 - 44.9 07/19/2018 L [facility] H and H MCV 90.0 fL 83.7 - 99.5 07/19/2018 N [facility] H and H MCH 28.8 pg 27.6 - 33.1 07/19/2018 N [facility] H and H MCHC 32.0 g/dL 31.3 - 34.9 07/19/2018 N [facility] Glu POC ORM Glucose Level (POC) 127 mg/dL 70 - 100 07/19/2018 H Meter: [id number]~Test Lab Technician: [id number] Otilia Rockwell
[facility] Glu POC ORM Glucose Level (POC) 159 mg/dL 70 - 100 07/19/2018 H Meter: [id number]~Test Lab Technician: [id number] Otilia Rockwell
[facility] CBC WBC 3.8 x10'3/microL 5.4 - 10.8 07/19/2018 L [facility] CBC RBC 3.63 x10'6/microL 3.79 - 5.19 07/19/2018 L [facility] CBC Hgb 10.5 g/dL 11.2 - 15.7 07/19/2018 L [facility] CBC Hct 33.3 % 34.1 - 44.9 07/19/2018 L [facility] CBC MCV 91.7 fL 83.7 - 99.5 07/19/2018 N [facility] CBC MCH 28.9 pg 27.6 - 33.1 07/19/2018 N [facility] CBC MCHC 31.5 g/dL 31.3 - 34.9 07/19/2018 N [facility] CBC RDW 43.6 fL 38.6 - 50.2 07/19/2018 N [facility] CBC Platelet 144 x10'3/microL 126 - 432 07/19/2018 N [facility] CBC MPV 10.6 fL 9.2 - 12.2 07/19/2018 N [facility] CBC NRBC 0.0 /100WBC 0.0 - 0.2 07/19/2018 N [facility] CBC Abs NRBCs 0.00 x10'3/m icroL 0.00 - 0.01 07/19/2018 N [facility] Renal Funct Index GFR (CKD-EPI) 85.0 mL/min/1.73 m2 07/19/2018 NA GFR calculated based on CKD -EPI Creatinine Equation (2009).
Age(years) Average GFR
20-29 116 mL/min/1.73 m^2
30-39 107 mL/min/1.73 m^2
40-49 99 mL/min/1.73 m^2
50-59 93 mL/min/1.73 m^2
60-69 85 mL/min/1.73 m^2
70+ 75 mL/min/1.73 m^2

Acceptable GFR =>60 mL/min/1.73 m^2
Chronic Kidney Disease <60 mL/min/1.73 m^2
Kidney Failure <15 mL/min/1.73 m^2
[facility] BMP Sodium 145 mmol/L 136 - 145 07/19/2018 N [facility] BMP Potassium 4.6 mmol/L 3.5 - 5.1 07/19/2018 N [facility] BMP Chloride 108 mmol/L 98 - 107 07/19/2018 H [facility] BMP AGAP 12 3 - 20 07/19/2018 N [facility] BMP CO2 25 mmol/L 22 - 29 07/19/2018 N [facility] BMP Glucose 176 mg/dL 70 - 99 07/19/2018 H [facility] BMP BUN 23 mg/dL 8 - 23 07/19/2018 N [facility] BMP Creatinine 0.70 mg/dL 0.50 - 0.90 07/19/2018 N Creatinine result is standardized to the internationally accepted Isotope Dilution Mass Spectrometry (IDMS).
[facility] BMP Calcium 9.4 mg/dL 8.8 - 10.2 07/19/2018 N [facility] Lipid Pf Cholesterol 99 mg/dL - <=200 07/19/2018 N [facility] Lipid Pf Triglycerides 210 mg/ dL - <=150 07/19/2018 H [facility] Lipid Pf HDL 25 mg/dL >=40 07/19/2018 L [facility] Lipid Pf LDL Calculated 32 mg/d L 07/19/2018 NA Reference range
<130 Normal
130-150 Borderline
>159 High Risk
[facility] Lipid Pf Chol/HDL Ratio 4.0 07/19/2018 NA [facility] Lipid Pf LDL/HDL Ratio 1.3 07/19/2018 NA [facility] Lipid Pf VLDL Calculated 42 mg/d L 07/19/2018 NA [facility] Trop T Troponin T 20.64 ng/L - <=14.00 07/19/2018 H TROPONIN INTERPRETATION
ng/L

Patient results above the reference range should be repeated within 1-3 hours and evaluated for an acute increase >6 ng/L, which may indicate a need for further workup for myocardial damage depending on the clinical context.

This test has a potential for interference if a patient is taking large doses of Biotin. It is recommended that patients discontinue Biotin use at least 8 hours prior to having lab testing done.
[facility] Trop T Troponin T 21.33 ng/L - <=14.00 07/19/2018 H TROPONIN INTERPRETATION
ng/L

Patient results above the reference range should be repeated within 1-3 hours and evaluated for an acute increase >6 ng/L, which may indicate a need for further workup for myocardial damage depending on the clinical context.

This test has a potential for interference if a patient is taking large doses of Biotin. It is recommended that patients discontinue Biotin use at least 8 hours prior to having lab testing done.
[facility] TSH TSH <0.005 micro Inter.Units/mL 0.270 - 4.200 07/19/2018 L This test has a potential for interferen ce if a patient is taking large doses of Biotin. It is recommended that patients discontinue Biotin use at least 8 hours prior to having lab testing done.
[facility] H and H Hgb 9.9 g/dL 11.2 - 15.7 07/19/2018 L [facility] H and H Hct 31.6 % 34.1 - 44.9 07/19/2018 L [facility] H and H MCV 92.1 fL 83.7 - 99.5 07/19/2018 N [facility] H and H MCH 28.9 pg 27.6 - 33.1 07/19/2018 N [facility] H and H MCHC 31.3 g/dL 31.3 - 34.9 07/19/[address] [facility] [address] Urine U Amph Scrn Negative Negative 07/18/2018 N Immunoassay Screening Cutoff: 1000 ng/m L
Drug screening results are reported as presumptive only and do not include confirmation testing. These drug testing results are to be used for medical or drug treatment/rehabilitation purposes only.
[facility] Dr Urine U Anita Scrn Negative Negative 07/18/2018 N Immunoassay Screening Cutoff: 200 ng/mL
Drug screening results are reported as presumptive only and do not include confirmation testing. These drug testing results are to be used for medical or drug treatment/rehabilitation purposes only.
[facility] Dr Urine U Benzodia Scrn Negativ e Negative 07/18/2018 N Immunoassay Screening Cutoff: 200 ng/mL
Drug screening results are reported as presumptive only and do not include confirmation testing. These drug testing results are to be used for medical or drug treatment/rehabilitation purposes only.
[facility] Dr Urine U Cocaine Scrn Negativ e Negative 07/18/2018 N Immunoassay Screening Cutoff: 300 ng/mL
Drug screening results are reported as presumptive only and do not include confirmation testing. These drug testing results are to be used for medical or drug treatment/rehabilitation purposes only.
[facility] Dr Urine U Opiate Scrn Negativ e Negative 07/18/2018 N Immunoassay Screening Cutoff: 300 ng/mL
Drug screening results are reported as presumptive only and do not include confirmation testing. These drug testing results are to be used for medical or drug treatment/rehabilitation purposes only.
[facility] Dr Urine U PCP Scrn Negative Negative 07/18/2018 N Immunoassay Screening Cutoff: 25 ng/mL< br/>Drug screening results are reported as presumptive only and do not include confirmation testing. These drug testing results are to be used for medical or drug treatment/rehabilitation purposes only.
[facility] Dr Urine U Cannab Scrn Negativ e Negative 07/18/2018 N Immunoassay Screening Cutoff: 50 ng/mL< br/>Drug screening results are reported as presumptive only and do not include confirmation testing. These drug testing results are to be used for medical or drug treatment/rehabilitation purposes only.
[facility] UA Auto CI UA Spec Type Clean Catch 07/18/2018 N [facility] UA Auto CI UA Color Light -Yellow 07/18/2018 N [facility] UA Auto CI UA Appear Clear Clear 07/18/2018 N [facility] UA Auto CI UA Spec Grav 1.011 1.005 - 1.030 07/18/2018 N [facility] UA Auto CI UA pH 5.5 5.0 - 8.0 07/18/2018 N [facility] UA Auto CI UA Protein 1+ Negative 07/18/2018 @ [facility] UA Auto CI UA Glucose Negat krissy Negative 07/18/2018 N [facility] UA Auto CI UA Ketones Negat krissy Negative 07/18/2018 N [facility] UA Auto CI UA Bili Negative Negative 07/18/2018 N [facility] UA Auto CI UA Blood Negative Negative 07/18/2018 N [facility] UA Auto CI UA Nitrite Negat krissy Negative 07/18/2018 N [facility] UA Auto CI UA Leuk Est Negat krissy Negative 07/18/2018 N [facility] UA Auto CI MicroscopicDone? Yes 07/18/2018 N [facility] UA Auto CI Culture? No 07/18/2018 N [facility] UA Auto CI UA RBC 1 /hpf 0 - 3 07/18/2018 N [facility] UA Auto CI UA WBC <1 /hpf 0 - 6 07/18/2018 N [facility] UA Auto CI UA Squamous Epithelial Tr haley None 07/18/2018 @ [facility] Pro BNP pro-BNP 3286 pg/mL 0 - 1800 07/18/2018 H - Among patients with dyspnea, NT-Pro BN P is highly sensitive for the detection of acute congestive heart failure. In addition, a NT-Pro BNP <300 pg/ml effectively rules out acute congestive heart failure with a 99% predictive value.
- Knowledge of each individual patient's NT-Pro BNP range may be more useful than using similar cut-points for every patient.
- Elevations in NT-Pro BNP levels may be observed in states other than left ventricular congestive failure, including: acute coronary syndromes, right heart strain/failure (including pulmonary embolism and cor pulmonale), critical illness, renal failure as well as advanced age.
- Falsely low NT-Pro BNP in congestive heart failure patients may be observed with increasing body-mass index.

This test has a potential for interference if a patient is taking large doses of Biotin. It is recommended that patients discontinue Biotin use at least 8 hours prior to having lab testing done.
[facility] Trop T Troponin T 19.65 ng/L - <=14.00 07/18/2018 H TROPONIN INTERPRETATION
ng/L

Patient results above the reference range should be repeated within 1-3 hours and evaluated for an acute increase >6 ng/L, which may indicate a need for further workup for myocardial damage depending on the clinical context.

This test has a potential for interference if a patient is taking large doses of Biotin. It is recommended that patients discontinue Biotin use at least 8 hours prior to having lab testing done.
[facility] Renal Funct Index GFR (CKD-EPI) 92.6 mL/min/1.73 m2 07/18/2018 NA GFR calculated based on CKD -EPI Creatinine Equation (2009).
Age(years) Average GFR
20-29 116 mL/min/1.73 m^2
30-39 107 mL/min/1.73 m^2
40-49 99 mL/min/1.73 m^2
50-59 93 mL/min/1.73 m^2
60-69 85 mL/min/1.73 m^2
70+ 75 mL/min/1.73 m^2

Acceptable GFR =>60 mL/min/1.73 m^2
Chronic Kidney Disease <60 mL/min/1.73 m^2
Kidney Failure <15 mL/min/1.73 m^2
[facility] CMP Sodium 142 mmol/L 136 - 145 07/18/2018 N [facility] Potassium 4.3 mmol/L 3.5 - 5.1 07/18/2018 N [facility] CMP Chloride 105 mmol/L 98 - 107 07/18/2018 N [facility] CMP CO2 27 mmol/L 22 - 29 07/18/2018 N [facility] CMP Creatinine 0.54 mg/dL 0.50 - 0.90 07/18/2018 N Creatinine result is standardized to the internationally accepted Isotope Dilution Mass Spectrometry (IDMS).
[facility] CMP Calcium 9.3 mg/dL 8.8 - 10.2 07/18/2018 N [facility] CMP AGAP 10 3 - 20 07/18/2018 N [facility] CMP Glucose 154 mg/dL 70 - 99 07/18/2018 H [facility] CMP BUN 20 mg/dL 8 - 23 07/18/2018 N [facility] CMP Total Protein 6.7 g/dL 6.4 - 8.3 07/18/2018 N [facility] CMP Albumin Level 3.8 g/dL 3.5 - 5.2 07/18/2018 N [facility] CMP Bili Total 0.5 mg/dL - <=1.0 07/18/2018 N [facility] CMP Alk Phos 82 Units/L 35 - 105 07/18/2018 N [facility] CMP AST 20 Units/L 10 - 33 07/18/2018 N [facility] CMP ALT(SGPT) 25 Units/L - 07/18/2018 N [facility] Protime PT 12.8 second 11.7 - 14.3 07/18/2018 N [facility] Protime INR 1.0 07/18/2018 NA Therapeutic Range 2.0 to 3.0
[facility] Auto Diff Neutrophils 48.0 % 42.7 - 77.1 07/18/2018 N [facility] Auto Diff Lymphs 38.8 % 12.1 - 45.3 07/18/2018 N [facility] Auto Diff Monocytes % 10.1 % 4.4 - 12.5 07/18/2018 N [facility] Auto Diff Eosinophil % 2.5 % 0.0 - 5.6 07/18/2018 N [facility] Auto Diff Basophil % 0.3 % 0.0 - 1.0 07/18/2018 N [facility] Auto Diff Immature Granulocytes % 0. 3 % 0.0 - 1.0 07/18/2018 N [facility] Auto Diff Neutro Absolute 1.7 x1 0'3/microL 1.4 - 6.8 07/18/2018 N [facility] Auto Diff Lymph Absolute 1.4 x1 0'3/microL 0.6 - 3.2 07/18/2018 N [facility] Auto Diff Bollinger Absolute 0.4 x1 0'3/microL 0.2 - 0.9 07/18/2018 N [facility] Auto Diff Eos Absolute 0.1 x1 0'3/microL 0.0 - 0.6 07/18/2018 N [facility] Auto Diff Basophil Absolute 0.0 x1 0'3/microL 0.0 - 0.1 07/18/2018 N [facility] Auto Diff Immature Granulocytes Abs 0.01 x10'3/microL 0.01 - 0.03 07/18/2018 N [facility] CBC/Diff WBC 3.6 x10'3/micro L 5.4 - 10.8 07/18/2018 L [facility] CBC/Diff RBC 3.86 x10'6/micr oL 3.79 - 5.19 07/18/2018 N [facility] CBC/Diff Hgb 11.4 g/dL 11.2 - 15.7 07/18/2018 N [facility] CBC/Diff Hct 35.5 % 34.1 - 44.9 07/18/2018 N [facility] CBC/Diff MCV 92.0 fL 83.7 - 99.5 07/18/2018 N [facility] CBC/Diff MCH 29.5 pg 27.6 - 33.1 07/18/2018 N [facility] CBC/Diff MCHC 32.1 g/dL 31.3 - 34.9 07/18/2018 N [facility] CBC/Diff RDW 43.4 fL 38.6 - 50.2 07/18/2018 N [facility] CBC/Diff Platelet 163 x10 '3/microL 126 - 432 07/18/2018 N [facility] CBC/Diff MPV 10.4 fL 9.2 - 12.2 07/18/2018 N [facility] CBC/Diff NRBC 0.0 /100WBC 0.0 - 0.2 07/18/2018 N [facility] CBC/Diff Abs NRBCs 0.00 x1 0'3/microL 0.00 - 0.01 07/18/2018 N [facility] Hgb A1c Hgb A1c 7.5 % 4.0 - 6.0 07/09/2018 H [facility] Hgb A1c Estimated Average Glucose 16 9 mg/dL 07/09/2018 NA [facility] Renal Funct Index GFR (CKD-EPI) 88.0 mL/min/1.73 m2 07/09/2018 NA GFR calculated based on CKD -EPI Creatinine Equation (2009).
Age(years) Average GFR
20-29 116 mL/min/1.73 m^2
30-39 107 mL/min/1.73 m^2
40-49 99 mL/min/1.73 m^2
50-59 93 mL/min/1.73 m^2
60-69 85 mL/min/1.73 m^2
70+ 75 mL/min/1.73 m^2

Acceptable GFR =>60 mL/min/1.73 m^2
Chronic Kidney Disease <60 mL/min/1.73 m^2
Kidney Failure <15 mL/min/1.73 m^2
[facility] Sodium 144 mmol/L 136 - 145 07/09/2018 N [facility] CMP Potassium 4.1 mmol/L 3.5 - 5.1 07/09/2018 N [facility] CMP Chloride 107 mmol/L 98 - 107 07/09/2018 N [facility] CMP CO2 27 mmol/L 22 - 07/09/2018 N [facility] Glucose 184 mg/dL 70 - 99 07/09/2018 H [facility] CMP BUN 20 mg/dL 8 - 07/09/2018 N [facility] CMP Creatinine 0.63 mg/dL 0.50 - 0.90 07/09/2018 N Creatinine result is standardized to the internationally accepted Isotope Dilution Mass Spectrometry (IDMS).
[facility] CMP Calcium 9.7 mg/dL 8.8 - 10.2 07/09/2018 N [facility] CMP Total Protein 7.2 g/dL 6.4 - 8.3 07/09/2018 N [facility] CMP Albumin Level 4.0 g/dL 3.5 - 5.2 07/09/2018 N [facility] CMP Bili Total 0.5 mg/dL - <=1.0 07/09/2018 N [facility] CMP Alk Phos 78 Units/L 35 - 105 07/09/2018 N [facility] CMP AST 16 Units/L 10 - 33 07/09/2018 N [facility] CMP ALT(SGPT) 24 Units/L 10 - 33 07/09/2018 N [facility] CMP AGAP 10 3 - 20 07/09/2018 N [facility] LDL Direct LDL Direct 75 mg/dL 0 - 129 07/09/2018 N [facility] Lipid Pf Cholesterol 128 mg/dL - <=200 07/09/2018 N [facility] Lipid Pf Triglycerides 178 mg/ dL - <=150 07/09/2018 H [facility] Lipid Pf HDL 33 mg/dL >=40 07/09/2018 L [facility] Lipid Pf LDL Calculated 59 mg/d L 07/09/2018 NA Reference range
<130 Normal
130-150 Borderline
>159 High Risk
[facility] Lipid Pf Chol/HDL Ratio 3.9 07/09/2018 NA [facility] Lipid Pf LDL/HDL Ratio 1.8 07/09/2018 NA [facility] Lipid Pf VLDL Calculated 36 mg/d L 07/09/2018 NA [facility] Auto Diff Neutrophils 56.4 % 42.7 - 77.1 07/09/2018 N [facility] Auto Diff Lymphs 34.2 % 12.1 - 45.3 07/09/2018 N [facility] Auto Diff Monocytes % 6.5 % 4.4 - 12.5 07/09/2018 N [facility] Auto Diff Eosinophil % 2.1 % 0.0 - 5.6 07/09/2018 N [facility] Auto Diff Basophil % 0.4 % 0.0 - 1.0 07/09/2018 N [facility] Auto Diff Immature Granulocytes % 0. 4 % 0.0 - 1.0 07/09/2018 N [facility] Auto Diff Neutro Absolute 2.7 x1 0'3/microL 1.4 - 6.8 07/09/2018 N [facility] Auto Diff Lymph Absolute 1.6 x1 0'3/microL 0.6 - 3.2 07/09/2018 N [facility] Auto Diff Bollinger Absolute 0.3 x1 0'3/microL 0.2 - 0.9 07/09/2018 N [facility] Auto Diff Eos Absolute 0.1 x1 0'3/microL 0.0 - 0.6 07/09/2018 N [facility] Auto Diff Basophil Absolute 0.0 x1 0'3/microL 0.0 - 0.1 07/09/2018 N [facility] Auto Diff Immature Granulocytes Abs 0.02 x10'3/microL 0.01 - 0.03 07/09/2018 N [facility] CBC/Diff WBC 4.7 x10'3/micro L 5.4 - 10.8 07/09/2018 L [facility] CBC/Diff RBC 4.17 x10'6/micr oL 3.79 - 5.19 07/09/2018 N [facility] CBC/Diff Hgb 12.4 g/dL 11.2 - 15.7 07/09/2018 N [facility] CBC/Diff Hct 38.4 % 34.1 - 44.9 07/09/2018 N [facility] CBC/Diff MCV 92.1 fL 83.7 - 99.5 07/09/2018 N [facility] CBC/Diff MCH 29.7 pg 27.6 - 33.1 07/09/2018 N [facility] CBC/Diff MCHC 32.3 g/dL 31.3 - 34.9 07/09/2018 N [facility] CBC/Diff RDW 42.6 fL 38.6 - 50.2 07/09/2018 N [facility] CBC/Diff Platelet 199 x10 '3/microL 126 - 432 07/09/2018 N [facility] CBC/Diff MPV 10.1 fL 9.2 - 12.2 07/09/2018 N [facility] CBC/Diff NRBC 0.0 /100WBC 0.0 - 0.2 07/09/2018 N [facility] CBC/Diff Abs NRBCs 0.00 x1 0'3/microL 0.00 - 0.01 07/09/2018 N [facility] Renal Funct Index GFR (CKD-EPI) 88.5 mL/min/1.73 m2 06/24/2018 NA GFR calculated based on CKD -EPI Creatinine Equation (2009).
Age(years) Average GFR
20-29 116 mL/min/1.73 m^2
30-39 107 mL/min/1.73 m^2
40-49 99 mL/min/1.73 m^2
50-59 93 mL/min/1.73 m^2
60-69 85 mL/min/1.73 m^2
70+ 75 mL/min/1.73 m^2

Acceptable GFR =>60 mL/min/1.73 m^2
Chronic Kidney Disease <60 mL/min/1.73 m^2
Kidney Failure <15 mL/min/1.73 m^2
[facility] BMP Sodium 143 mmol/L 136 - 145 06/24/2018 N [facility] BMP Potassium 4.2 mmol/L 3.5 - 5.1 06/24/2018 N [facility] BMP Chloride 109 mmol/L 98 - 107 06/24/2018 H [facility] BMP AGAP 11 3 - 20 06/24/2018 N [facility] BMP CO2 23 mmol/L 22 - 29 06/24/2018 N [facility] BMP Glucose 181 mg/dL 70 - 99 06/24/2018 H [facility] BMP BUN 18 mg/dL 8 - 23 06/24/2018 N [facility] BMP Creatinine 0.62 mg/dL 0.50 - 0.90 06/24/2018 N Creatinine result is standardized to the internationally accepted Isotope Dilution Mass Spectrometry (IDMS).
[facility] BMP Calcium 9.1 mg/dL 8.8 - 10.2 06/24/2018 N [facility] PTT PTT 30.5 second 23.3 - 34.2 06/24/2018 N [facility] Protime PT 14.1 second 11.7 - 14.3 06/24/2018 N [facility] Protime INR 1.1 06/24/2018 NA Therapeutic Range 2.0 to 3.0
[facility] Auto Diff Neutrophils 61.5 % 42.7 - 77.1 06/24/2018 N [facility] Auto Diff Lymphs 28.7 % 12.1 - 45.3 06/24/2018 N [facility] Auto Diff Monocytes % 7.3 % 4.4 - 12.5 06/24/2018 N [facility] Auto Diff Eosinophil % 1.5 % 0.0 - 5.6 06/24/2018 N [facility] Auto Diff Basophil % 0.3 % 0.0 - 1.0 06/24/2018 N [facility] Auto Diff Immature Granulocytes % 0. 7 % 0.0 - 1.0 06/24/2018 N [facility] Auto Diff Neutro Absolute 3.6 x1 0'3/microL 1.4 - 6.8 06/24/2018 N [facility] Auto Diff Lymph Absolute 1.7 x1 0'3/microL 0.6 - 3.2 06/24/2018 N [facility] Auto Diff Bollinger Absolute 0.4 x1 0'3/microL 0.2 - 0.9 06/24/2018 N [facility] Auto Diff Eos Absolute 0.1 x1 0'3/microL 0.0 - 0.6 06/24/2018 N [facility] Auto Diff Basophil Absolute 0.0 x1 0'3/microL 0.0 - 0.1 06/24/2018 N [facility] Auto Diff Immature Granulocytes Abs 0.04 x10'3/microL 0.01 - 0.03 06/24/2018 H [facility] CBC/Diff WBC 5.9 x10'3/micro L 5.4 - 10.8 06/24/2018 N [facility] CBC/Diff RBC 4.04 x10'6/micr oL 3.79 - 5.19 06/24/2018 N [facility] CBC/Diff Hgb 11.8 g/dL 11.2 - 15.7 06/24/2018 N [facility] CBC/Diff Hct 37.3 % 34.1 - 44.9 06/24/2018 N [facility] CBC/Diff MCV 92.3 fL 83.7 - 99.5 06/24/2018 N [facility] CBC/Diff MCH 29.2 pg 27.6 - 33.1 06/24/2018 N [facility] CBC/Diff MCHC 31.6 g/dL 31.3 - 34.9 06/24/2018 N [facility] CBC/Diff RDW 44.0 fL 38.6 - 50.2 06/24/2018 N [facility] CBC/Diff Platelet 186 x10 '3/microL 126 - 432 06/24/2018 N [facility] CBC/Diff MPV 10.4 fL 9.2 - 12.2 06/24/2018 N [facility] CBC/Diff NRBC 0.0 /100WBC 0.0 - 0.2 06/24/2018 N [facility] CBC/Diff Abs NRBCs 0.00 x1 0'3/microL 0.00 - 0.01 06/24/2018 N [facility] ISTAT ORM Creatinine POC 0.9 mg /dL 0.6 - 1.3 06/03/2018 N Meter: [id number]~Test Lab Technician: [id number] Salma Blackwell
[facility] UA Auto CI UA Spec Type Clean Catch 08/19/2017 N [facility] [place] UA Auto CI UA Color Light -Yellow 08/19/2017 N [facility] UA Auto CI UA Appear Clear Clear 08/19/2017 N [facility] UA Auto CI UA Spec Grav 1.015 1.005 - 1.030 08/19/2017 N [facility] UA Auto CI UA pH 5.5 5.0 - 8.0 08/19/2017 N [facility] UA Auto CI UA Protein 1+ Negative 08/19/2017 @ [facility] UA Auto CI UA Glucose Negat krissy Negative 08/19/2017 N [facility] [place] UA Auto CI UA Ketones Negat krissy Negative 08/19/2017 N [facility] [place] UA Auto CI UA Bili Negative Negative 08/19/2017 N [facility] [place] UA Auto CI UA Blood Negative Negative 08/19/2017 N [facility] [place] UA Auto CI UA Urobilinogen Amrlene l Normal 08/19/2017 N [facility] [place] UA Auto CI UA Nitrite Negat krissy Negative 08/19/2017 N [facility] [place] UA Auto CI UA Leuk Est Negat krissy Negative 08/19/2017 N [facility] [place] UA Auto CI MicroscopicDone? Yes 08/19/2017 N [facility] [place] UA Auto CI Culture? No 08/19/2017 N [facility] [place] UA Auto CI UA RBC <1 /hpf 0 - 3 08/19/2017 N [facility] [place] UA Auto CI UA WBC 1 /hpf 0 - 6 08/19/2017 N [facility] [place] UA Auto CI UA Squamous Epithelial Tr haley Few 08/19/2017 N [facility] [place] UA Auto CI UA Bacteria None Trace 08/19/2017 N [facility] [place] UA Auto CI UA Mucous Trace 1+ 08/19/2017 N [facility] Pro BNP pro-BNP 1763 pg/mL 0 - 900 08/19/2017 H Reference Range
Age 50 yrs or less: 0-450 pg/mL
Age 51-74 yrs: 0-900 pg/mL
Age 75 yrs or greater: 0-1800 pg/mL

- Among patients with dyspnea, NT-Pro BNP is highly sensitive for the detection of acute congestive heart failure. In addition, a NT-Pro BNP <300 pg/ml effectively rules out acute congestive heart failure with a 99% predictive value.
- Knowledge of each individual patient's NT-Pro BNP range may be more useful than using similar cut-points for every patient.
- Elevations in NT-Pro BNP levels may be observed in states other than left ventricular congestive failure, including: acute coronary syndromes, right heart strain/failure (including pulmonary embolism and cor pulmonale), critical illness, renal failure as well as advanced age.
- Falsely low NT-Pro BNP in congestive heart failure patients may be observed with increasing body-mass index.
[facility] Renal Funct Index GFR (CKD-EPI) 70.7 mL/min/1.73 m2 08/19/2017 NA GFR calculated based on CKD -EPI Creatinine Equation (2009).
Age(years) Average GFR
20-29 116 mL/min/1.73 m^2
30-39 107 mL/min/1.73 m^2
40-49 99 mL/min/1.73 m^2
50-59 93 mL/min/1.73 m^2
60-69 85 mL/min/1.73 m^2
70+ 75 mL/min/1.73 m^2

Acceptable GFR =>60 mL/min/1.73 m^2
Chronic Kidney Disease <60 mL/min/1.73 m^2
Kidney Failure <15 mL/min/1.73 m^2
[facility] Sodium 135 mmol/L 136 - 145 08/19/2017 L [facility] Potassium 4.0 mmol/L 3.5 - 5.1 08/19/2017 N [facility] Chloride 100 mmol/L 98 - 107 08/19/2017 N [facility] CO2 21 mmol/L 22 - 32 08/19/2017 L [facility] Glucose 213 mg/dL 70 - 99 08/19/2017 H [facility] BUN 24.8 mg/dL 5.0 - 21.0 08/19/2017 H [facility] Creatinine 0.82 mg/dL 0.60 - 1.20 08/19/2017 N [facility] CMP Calcium 8.9 mg/dL 8.8 - 10.2 08/19/2017 N [facility] CMP Total Protein 7.2 g/dL 6.4 - 8.3 08/19/2017 N [facility] CMP Albumin Level 3.3 g/dL 3.5 - 5.2 08/19/2017 L [facility] CMP Bili Total 0.8 mg/dL 0.3 - 1.2 08/19/2017 N [facility] Alk Phos 83 Units/L 35 - 105 08/19/2017 N [facility] CMP AST 14 Inter. Units/L 5 - 40 08/19/2017 N [facility] [place] CMP ALT(SGPT) 14 Inter. Un its/L 10 - 45 08/19/2017 N [facility] [place] CMP Globulin 3.9 g/dL 1.9 - 3.9 08/19/2017 N [facility] [place] CMP Albumin/Globulin Ratio 0.8 g/dL 1.1 - 2.2 08/19/2017 L [facility] [place] CMP AGAP 14 6 - 16 08/19/2017 N [facility] Magnesium Magnesium 1.70 mg/dL 1.60 - 2.40 08/19/2017 N [facility] [place] Trop T Troponin T <0.01 ng/mL 08/19/2017 NA Troponin T
Normal: <0.03 ng/mL
Guevara Zone (Indeterminate):* 0.03 0.09 ng/mL
Critical Value: 0.10 ng/mL and above
<br/ >
*Minimal myocardial injury and increased risk for myocardial infarction. Use in conjunction with a history, patient symptoms and/or ECG changes. Serial measurements are important to assess the possibility of myocardial infarction. Other non-acute coronary syndrome conditions, including tachycardia, coronary vasospasm, congestive heart failure, myocarditis, pulmonary embolus and sepsis could result in myocardial damage and a persistent low level increase in Troponin levels.
Indicative of myocardial infarction
[facility] LacticAcid Lactic Acid Lvl 1.1 m mol/L 0.5 - 2.2 08/19/2017 N [facility] Auto Diff Neutrophils 82.4 % 47.0 - 75.0 08/19/2017 H [facility] [place] Auto Diff Lymphs 10.6 % 14.0 - 40.0 08/19/2017 L [facility] Auto Diff Monocytes % 5.8 % 5.0 - 10.0 08/19/2017 N [facility] [place] Auto Diff Eosinophil % 0.4 % 0.0 - 6.0 08/19/2017 N [facility] [place] Auto Diff Basophil % 0.1 % 0.0 - 1.5 08/19/2017 N [facility] [place] Auto Diff Immature Granulocytes % 0. 7 % 0.0 - 1.0 08/19/2017 N [facility] [place] Auto Diff Neutro Absolute 8.5 x1 0'3/microL 1.7 - 6.7 08/19/2017 H [facility] [place] Auto Diff Lymph Absolute 1.1 x1 0'3/microL 0.8 - 3.0 08/19/2017 N [facility] [place] Auto Diff Bollinger Absolute 0.6 x1 0'3/microL 0.2 - 1.1 08/19/2017 N [facility] [place] Auto Diff Eos Absolute 0.0 x1 0'3/microL 0.0 - 0.6 08/19/2017 N [facility] [place] Auto Diff Basophil Absolute 0.0 x1 0'3/microL 0.0 - 0.1 08/19/2017 N [facility] [place] Auto Diff Immature Granulocytes Abs 0.1 x10'3/microL 0.0 - 0.5 08/19/2017 N [facility] [place] CBC/Diff WBC 10.3 x10'3/micr oL 4.8 - 10.8 08/19/2017 N [facility] [place] CBC/Diff RBC 3.39 x10'6/micr oL 4.20 - 5.40 08/19/2017 L [facility] [place] CBC/Diff Hgb 9.9 g/dL 12.0 - 16.0 08/19/2017 L [facility] [place] CBC/Diff Hct 30.9 % 36.0 - 47.0 08/19/2017 L [facility] CBC/Diff MCV 91.2 fL 81.0 - 99.0 08/19/2017 N [facility] CBC/Diff MCH 29.2 pg 27.0 - 34.0 08/19/2017 N [facility] [place] CBC/Diff MCHC 32.0 g/dL 33.4 - 35.5 08/19/2017 L [facility] [place] CBC/Diff RDW 47.1 fL 36.4 - 46.3 08/19/2017 H [facility] [place] CBC/Diff Platelet 222 x10 '3/microL 130 - 400 08/19/2017 N [facility] [place] CBC/Diff MPV 10.1 fL 9.4 - 12.3 08/19/2017 N [facility] [place] C Blood C Blood
[facility]
[address] [facility].
[place] [id number]

Patient KASEY RICKS
Name:
Collected N/A N/A
Date/Time:
Received N/A N/A<b r/> Date/Time:
: 1945 Chart Request [id number]
ID:

M i c r o bi o lo g y

PROCEDURE: Culture Blood
SOURCE: Blood COLLECTED: 08/19/2017 15:27 EST
BODY SITE: Antecubital Left RECEIVED: 08/19/2017 15:56 EST
FREE TEXT SOURCE: STARTED: 08/19/2017 15:56 EST

FINAL REPORT

Final Report
Verified:08/24/2017 19:03 EST
No growth at 5 days.

<br/& gt;

08/19/2017 [facility] Glu POC DEL Glucose Level (POC) 192 mg/dL 70 - 100 08/19/2017 H Meter: [id number]~Test Lab Technician: [id number] PHILIP PEREZ
[facility] Glu POC DEL Glucose Level (POC) 255 mg/dL 70 - 100 08/14/2017 H Meter Cleaned~Nurse Notified~Meter: [id number]~Test Lab Technician: [id number] SAMI BECERRA
[facility] Glu POC DEL Glucose Level (POC) 339 mg/dL 70 - 100 08/14/2017 H Meter: [id number]~Test Lab Technician: [id number] SAMI TEIXEIRA
[facility] Renal Funct Index GFR (CKD-EPI) 69.7 mL/min/1.73 m2 08/14/2017 NA GFR calculated based on CKD -EPI Creatinine Equation (2009).
Age(years) Average GFR
20-29 116 mL/min/1.73 m^2
30-39 107 mL/min/1.73 m^2
40-49 99 mL/min/1.73 m^2
50-59 93 mL/min/1.73 m^2
60-69 85 mL/min/1.73 m^2
70+ 75 mL/min/1.73 m^2

Acceptable GFR =>60 mL/min/1.73 m^2
Chronic Kidney Disease <60 mL/min/1.73 m^2
Kidney Failure <15 mL/min/1.73 m^2
[facility] Sodium 135 mmol/L 136 - 145 08/14/2017 L [facility] Potassium 4.3 mmol/L 3.5 - 5.1 08/14/2017 N [facility] Chloride 98 mmol/L 98 - 107 08/14/2017 N [facility] AGAP 12 6 - 16 08/14/2017 N [facility] BMP CO2 25 mmol/L 22 - 32 08/14/2017 N [facility] BMP Glucose 295 mg/dL 70 - 99 08/14/2017 H [facility] BMP BUN 29.0 mg/dL 5.0 - 21.0 08/14/2017 H [facility] Creatinine 0.83 mg/dL 0.60 - 1.20 08/14/2017 N [facility] BMP Calcium 8.9 mg/dL 8.8 - 10.2 08/14/2017 N [facility] Auto Diff Neutrophils 54.2 % 47.0 - 75.0 08/14/2017 N [facility] Auto Diff Lymphs 36.6 % 14.0 - 40.0 08/14/2017 N [facility] Auto Diff Monocytes % 5.6 % 5.0 - 10.0 08/14/2017 N [facility] Auto Diff Eosinophil % 2.8 % 0.0 - 6.0 08/14/2017 N [facility] Auto Diff Basophil % 0.5 % 0.0 - 1.5 08/14/2017 N [facility] [place] Auto Diff Immature Granulocytes % 0. 3 % 0.0 - 1.0 08/14/2017 N [facility] [place] Auto Diff Neutro Absolute 2.1 x1 0'3/microL 1.7 - 6.7 08/14/2017 N [facility] [place] Auto Diff Lymph Absolute 1.4 x1 0'3/microL 0.8 - 3.0 08/14/2017 N [facility] [place] Auto Diff Bollinger Absolute 0.2 x1 0'3/microL 0.2 - 1.1 08/14/2017 N [facility] [place] Auto Diff Eos Absolute 0.1 x1 0'3/microL 0.0 - 0.6 08/14/2017 N [facility] Auto Diff Basophil Absolute 0.0 x1 0'3/microL 0.0 - 0.1 08/14/2017 N [facility] [place] Auto Diff Immature Granulocytes Abs 0.0 x10'3/microL 0.0 - 0.5 08/14/2017 N [facility] [place] CBC/Diff WBC 3.9 x10'3/micro L 4.8 - 10.8 08/14/2017 L [facility] [place] CBC/Diff RBC 3.66 x10'6/micr oL 4.20 - 5.40 08/14/2017 L [facility] [place] CBC/Diff Hgb 10.8 g/dL 12.0 - 16.0 08/14/2017 L [facility] CBC/Diff Hct 33.5 % 36.0 - 47.0 08/14/2017 L [facility] CBC/Diff MCV 91.5 fL 81.0 - 99.0 08/14/2017 N [facility] [place] CBC/Diff MCH 29.5 pg 27.0 - 34.0 08/14/2017 N [facility] CBC/Diff MCHC 32.2 g/dL 33.4 - 35.5 08/14/2017 L [facility] CBC/Diff RDW 46.4 fL 36.4 - 46.3 08/14/2017 H [facility] CBC/Diff Platelet 150 x10 '3/microL 130 - 400 08/14/2017 N [facility] [place] CBC/Diff MPV 11.2 fL 9.4 - 12.3 08/14/2017 N [facility] Glu POC DEL Glucose Level (POC) 194 mg/dL 70 - 100 08/14/2017 H Meter: [id number]~Test Lab Technician: [id number] ESAU CHIN
[facility] Glu POC DEL Glucose Level (POC) 291 mg/dL 70 - 100 08/13/2017 H Meter: [id number]~Test Lab Technician: [id number] ESAU HOYTET
[facility] Glu POC DEL Glucose Level (POC) 264 mg/dL 70 - 100 08/13/2017 H Meter Cleaned~Nurse Notified~Meter: [id number]~Test Lab Technician: [id number] PABLO LIANGB
[facility] Glu POC DEL Glucose Level (POC) 269 mg/dL 70 - 100 08/13/2017 H Nurse Notified~Meter: [id number]~Opera tor: [id number] PABLO LIANGBERLY
[facility] Glu POC DEL Glucose Level (POC) 290 mg/dL 70 - 100 08/13/2017 H Meter: [id number]~Test Lab Technician: [id number] PABLO LIANGBERLY
[facility] Glu POC DEL Glucose Level (POC) 205 mg/dL 70 - 100 08/13/2017 H Meter Cleaned~Meter: [id number]~Operat or: [id number] PABLO LIANGBERLY
[facility] [place] Renal Funct Index GFR (CKD-EPI) 64.9 mL/min/1.73 m2 08/13/2017 NA GFR calculated based on CKD -EPI Creatinine Equation (2009).
Age(years) Average GFR
20-29 116 mL/min/1.73 m^2
30-39 107 mL/min/1.73 m^2
40-49 99 mL/min/1.73 m^2
50-59 93 mL/min/1.73 m^2
60-69 85 mL/min/1.73 m^2
70+ 75 mL/min/1.73 m^2

Acceptable GFR =>60 mL/min/1.73 m^2
Chronic Kidney Disease <60 mL/min/1.73 m^2
Kidney Failure <15 mL/min/1.73 m^2
[facility] BMP Sodium 136 mmol/L 136 - 145 08/13/2017 N [facility] BMP Potassium 3.9 mmol/L 3.5 - 5.1 08/13/2017 N [facility] BMP Chloride 97 mmol/L 98 - 107 08/13/2017 L [facility] BMP AGAP 14 6 - 16 08/13/2017 N [facility] BMP CO2 25 mmol/L 22 - 32 08/13/2017 N [facility] BMP Glucose 256 mg/dL 70 - 99 08/13/2017 H [facility] [place] BMP BUN 23.0 mg/dL 5.0 - 21.0 08/13/2017 H [facility] BMP Creatinine 0.88 mg/dL 0.60 - 1.20 08/13/2017 N [facility] BMP Calcium 8.7 mg/dL 8.8 - 10.2 08/13/2017 L [facility] Lipid Pf Cholesterol 104 mg/dL 0 - 200 08/13/2017 N [facility] Lipid Pf Triglycerides 311 mg/ dL 0 - 200 08/13/2017 H [facility] Lipid Pf HDL 13 mg/dL >=40 08/13/2017 L 40 mg/dL: Low HDL-cholesterol (major risk factor for CHD)
>60 mg/dL: High HDL-cholesterol (low risk factor for CHD)
[facility] Lipid Pf LDL Calculated 29 mg/d L 08/13/2017 NA [facility] Lipid Pf Chol/HDL Ratio 8.0 08/13/2017 NA [facility] [place] Lipid Pf LDL/HDL Ratio 2.2 08/13/2017 NA [facility] Lipid Pf VLDL Calculated 62 mg/d L 08/13/2017 NA [facility] T4 Free T4 Free 0.83 ng/dL 0.58 - 1.64 08/13/2017 N [facility] Auto Diff Neutrophils 56.0 % 47.0 - 75.0 08/13/2017 N [facility] Auto Diff Lymphs 30.9 % 14.0 - 40.0 08/13/2017 N [facility] Auto Diff Monocytes % 10.0 % 5.0 - 10.0 08/13/2017 N [facility] [place] Auto Diff Eosinophil % 2.3 % 0.0 - 6.0 08/13/2017 N [facility] [place] Auto Diff Basophil % 0.5 % 0.0 - 1.5 08/13/2017 N [facility] [place] Auto Diff Immature Granulocytes % 0. 3 % 0.0 - 1.0 08/13/2017 N [facility] [place] Auto Diff Neutro Absolute 2.2 x1 0'3/microL 1.7 - 6.7 08/13/2017 N [facility] [place] Auto Diff Lymph Absolute 1.2 x1 0'3/microL 0.8 - 3.0 08/13/2017 N [facility] [place] Auto Diff Bollinger Absolute 0.4 x1 0'3/microL 0.2 - 1.1 08/13/2017 N [facility] [place] Auto Diff Eos Absolute 0.1 x1 0'3/microL 0.0 - 0.6 08/13/2017 N [facility] [place] Auto Diff Basophil Absolute 0.0 x1 0'3/microL 0.0 - 0.1 08/13/2017 N [facility] [place] Auto Diff Immature Granulocytes Abs 0.0 x10'3/microL 0.0 - 0.5 08/13/2017 N [facility] [place] CBC/Diff WBC 3.9 x10'3/micro L 4.8 - 10.8 08/13/2017 L [facility] [place] CBC/Diff RBC 3.66 x10'6/micr oL 4.20 - 5.40 08/13/2017 L [facility] [place] CBC/Diff Hgb 10.6 g/dL 12.0 - 16.0 08/13/2017 L [facility] [place] CBC/Diff Hct 33.5 % 36.0 - 47.0 08/13/2017 L [facility] [place] CBC/Diff MCV 91.5 fL 81.0 - 99.0 08/13/2017 N [facility] [place] CBC/Diff MCH 29.0 pg 27.0 - 34.0 08/13/2017 N [facility] [place] CBC/Diff MCHC 31.6 g/dL 33.4 - 35.5 08/13/2017 L [facility] [place] CBC/Diff RDW 47.2 fL 36.4 - 46.3 08/13/2017 H [facility] [place] CBC/Diff Platelet 140 x10 '3/microL 130 - 400 08/13/2017 N [facility] [facility] [place] CBC/Diff MPV 11.2 fL 9.4 - 12.3 08/13/2017 N [facility] [place] Trop T Troponin T <0.01 ng/mL 08/13/2017 NA Troponin T
Normal: <0.03 ng/mL
Guevara Zone (Indeterminate):* 0.03 0.09 ng/mL
Critical Value: 0.10 ng/mL and above

*Minimal myocardial injury and increased risk for myocardial infarction. Use in conjunction with a history, patient symptoms and/or ECG changes. Serial measurements are important to assess the possibility of myocardial infarction. Other non-acute coronary syndrome conditions, including tachycardia, coronary vasospasm, congestive heart failure, myocarditis, pulmonary embolus and sepsis could result in myocardial damage and a persistent low level increase in Troponin levels.
Indicative of myocardial infarction
[facility] [place] Hgb A1c Hgb A1c 10.3 % 4.8 - 6.0 08/13/2017 H [facility] [place] Hgb A1c Estimated Average Glucose 24 9 mg/dL 08/13/2017 NA [facility] [place] Trop T Troponin T <0.01 ng/mL 08/12/2017 NA Troponin T
Normal: <0.03 ng/mL
Guevara Zone (Indeterminate):* 0.03 0.09 ng/mL
Critical Value: 0.10 ng/mL and above

*Minimal myocardial injury and increased risk for myocardial infarction. Use in conjunction with a history, patient symptoms and/or ECG changes. Serial measurements are important to assess the possibility of myocardial infarction. Other non-acute coronary syndrome conditions, including tachycardia, coronary vasospasm, congestive heart failure, myocarditis, pulmonary embolus and sepsis could result in myocardial damage and a persistent low level increase in Troponin levels.
Indicative of myocardial infarction
[facility] [place] Glu POC DEL Glucose Level (POC) 315 mg/dL 70 - 100 08/12/2017 H Meter: [id number]~Test Lab Technician: [id number] RONN WILSONN
[facility] TSH TSH 7.[address]Units/mL 0.27 - 4.20 08/12/2017 H [facility] [place] Glu POC DEL Glucose Level (POC) 242 mg/dL 70 - 100 08/12/2017 H Meter Cleaned~Meter: [id number]~Operat or: [id number] BRI HAINES
[facility] UA Auto CI UA Spec Type Clean Catch 08/12/2017 N [facility] UA Auto CI UA Color Yellow 08/12/2017 N [facility] UA Auto CI UA Appear Hazy Clear 08/12/2017 @ [facility] UA Auto CI UA Spec Grav 1.015 1.005 - 1.030 08/12/2017 N [facility] UA Auto CI UA pH 5.5 5.0 - 8.0 08/12/2017 N [facility] UA Auto CI UA Protein 2+ Negative 08/12/2017 @ [facility] UA Auto CI UA Glucose 4+ Negative 08/12/2017 @ [facility] UA Auto CI UA Ketones Trace Negative 08/12/2017 @ [facility] UA Auto CI UA Bili Negative Negative 08/12/2017 N [facility] UA Auto CI UA Blood 1+ Negative 08/12/2017 @ [facility] UA Auto CI UA Urobilinogen 1+ Normal 08/12/2017 @ [facility] UA Auto CI UA Nitrite Negat krissy Negative 08/12/2017 N [facility] UA Auto CI UA Leuk Est 3+ Negative 08/12/2017 @ [facility] [place] UA Auto CI MicroscopicDone? Yes 08/12/2017 N [facility] UA Auto CI Culture? Yes 08/12/2017 N [facility] UA Auto CI UA RBC 2 /hpf 0 - 3 08/12/2017 N [facility] UA Auto CI UA WBC 47 /hpf 0 - 6 08/12/2017 H [facility] UA Auto CI UA Squamous Epithelial Tr haley Few 08/12/2017 N [facility] UA Auto CI UA Bacteria 4+ Trace 08/12/2017 @ [facility] UA Auto CI UA Mucous 2+ 1+ 08/12/2017 @ [facility] UA Auto CI UA WBC Clumps Prese nt None 08/12/2017 @ [facility] C Urine C Urine
[facility]
[address] [address]

Patient KASEY RICKS
Name:
Collected N/A N/A
Date/Time:
Received N/A N/A<b r/> Date/Time:
: 1945 Chart Request [id number]
ID:

M i c r o bi o lo g y

PROCEDURE: Culture Urine
SOURCE: Urine COLLECTED: 08/12/2017 19:08 EDT
BODY SITE: RECEIVED: 08/12/2017 19:41 EDT
FREE TEXT SOURCE: STARTED: 08/12/2017 19:41 EDT

FINAL REPORT

Final Report
Verified:08/15/2017 10:19 EST
>100,000 cfu/ml Klebsiella pneumoniae ssp pneumoniae
Test performed by
[facility]
[address] [place] [address]
[place], [place] [address]

SUSCEPTIBILITY RESULTS
Klebsiella
pneumoniae
ssp
pneumoniae

MDIL MINT
Amikacin <=2 S
Ampicillin >=32 R
Ampicillin/Sulbactam 4 S
Aztreonam <=1 S
Cefazolin <=4 S
Cefepime <=1 S
Ceftriaxone <=1 S
Ciprofloxacin <=0.25 S
Ertapenem <=0.5 S
ESBL NEG NEG
Gentamicin <=1 S
Meropenem <=0.25 S
Nitrofurantoin <=16 S
Piperacillin/Tazo <=4 S
Trimethoprim/Sulfa <=20 S
Tobramycin <=1 S

M i c r o bi o lo g y

PROCEDURE: Culture Urine
SOURCE: Urine COLLECTED: 08/12/2017 19:08 EDT
BODY SITE: RECEIVED: 08/12/2017 19:41 EDT
FREE TEXT SOURCE: STARTED: 08/12/2017 19:41 EDT

S=Susceptible, I=Intermediate, R=Resistant, N/A=Not Applicable

ORDER COMMENTS
UA Spec Type: Clean Catch

<br/& gt;
08/12/2017 [facility] [place] Glu POC DEL Glucose Level (POC) 321 mg/dL 70 - 100 08/12/[address] Dr-Pharmacy Notified~Meter: [id number] ~Test Lab Technician: [id number] SANTAMARIA BLANCA
[facility] Pro BNP pro-BNP 1557 pg/mL 0 - 900 08/12/2017 H Reference Range
Age 50 yrs or less: 0-450 pg/mL
Age 51-74 yrs: 0-900 pg/mL
Age 75 yrs or greater: 0-1800 pg/mL

- Among patients with dyspnea, NT-Pro BNP is highly sensitive for the detection of acute congestive heart failure. In addition, a NT-Pro BNP <300 pg/ml effectively rules out acute congestive heart failure with a 99% predictive value.
- Knowledge of each individual patient's NT-Pro BNP range may be more useful than using similar cut-points for every patient.
- Elevations in NT-Pro BNP levels may be observed in states other than left ventricular congestive failure, including: acute coronary syndromes, right heart strain/failure (including pulmonary embolism and cor pulmonale), critical illness, renal failure as well as advanced age.
- Falsely low NT-Pro BNP in congestive heart failure patients may be observed with increasing body-mass index.
[facility] ABG Test to be Performed Blood Gas 08/12/2017 N [facility] [place] [facility] Analysis Type [id number] 08/12/2017 NA [facility] [place] [facility] Sample Type BLDA 08/12/2017 NA [facility] [place] [facility] Sample Site Radial, Rt 08/12/2017 NA [facility] [place] [facility] Jon Test Pos 08/12/2017 NA [facility] [place] [facility] Drawn by [id number] 08/12/2017 NA [facility] [place] [facility] pH Art 7.502 7.350 - 7.450 08/12/2017 CRIT Results called to Dr. Hines at ext [phone] by Rony Philip, ALEX. 08/12/2017 18:04:37 EDT
Results read back.
[facility] [facility] pCO2 Art 33.7 mmHg 35.0 - 45.0 08/12/2017 L [facility] ABG pO2 Art 61.0 mmHg 80.0 - 100.0 08/12/2017 L [facility] ABG HCO3 Art 25.8 mEq/L 18.0 - 24.0 08/12/2017 H [facility] ABG BE (Art) 3.0 mEq/L -2.0 - 2.0 08/12/2017 H [facility] ABG %Sat (Art) 93.2 % 95.0 - 100.0 08/12/2017 L [facility]G PT Temp 98.6 DegC 08/12/2017 NA [facility] [place] [facility] pHtc 7.502 08/12/2017 NA [facility] ABG pCO2tc 33.7 mmHg 08/12/2017 NA [facility] ABG pO2tc 61.0 08/12/2017 NA [facility] ABG tHGB 12.1 g/dL 12.0 - 18.0 08/12/2017 N [facility] ABG tHCT 36 08/12/2017 NA [facility] Oxyhemoglobin 91.1 % 94.0 - 97.0 08/12/2017 L [facility] ABG Carboxyhemoglobin 2.0 % 0.0 - 1.5 08/12/2017 H [facility] ABG Methemoglobin 0.3 % 0.0 - 1.5 08/12/2017 N [facility] ABG Mode (Art) Room Air 08/12/2017 NA [facility] Procurement Personnel RT 08/12/2017 N [facility] Bandage Applied Yes 08/12/2017 NA [facility] Site Held 5 Mins Yes 08/12/2017 NA [facility] tCO2 Venous 26.8 mmol/L 22.5 - 28.0 08/12/2017 N [facility] [place] Flu A B Ag Source STEAMFITTER APPRENTICE Swab 08/12/2017 N [facility] [place] Flu A B Ag Influenza A Ag Neg f or Flu A Neg for Flu A 08/12/2017 N The CDC evaluated several ra pid influenza diagnostic tests to determine their capability of detecting novel A H1N1 virus. These findings indicate that, although a positive rapid influenza diagnostic ashlyn t result can be used in making treatment decisions, a negative result does not rule out infection with novel influenza A (H1N1) virus. Patients with illnesses compatible with novel influenza A (H1N1) virus infection but with negative rapid influenza diagnostic test results should be treated empirically based on the level of clinical suspicion, underlying medical conditions, severity of illness, and risk for complications. If a more definitive determination of infection with influenza virus is required, testing with golf teacher-PCR or virus isolation should be performed.
[facility] [place] Flu A B Ag Influenza B Ag Neg f or Flu B Neg for Flu B 08/12/2017 N [facility] Renal Funct Index GFR (CKD-EPI) 64.0 mL/min/1.73 m2 08/12/2017 NA GFR calculated based on CKD -EPI Creatinine Equation (2009).
Age(years) Average GFR
20-29 116 mL/min/1.73 m^2
30-39 107 mL/min/1.73 m^2
40-49 99 mL/min/1.73 m^2
50-59 93 mL/min/1.73 m^2
60-69 85 mL/min/1.73 m^2
70+ 75 mL/min/1.73 m^2

Acceptable GFR =>60 mL/min/1.73 m^2
Chronic Kidney Disease <60 mL/min/1.73 m^2
Kidney Failure <15 mL/min/1.73 m^2
[facility] B OHButyrate Hydroxybutyrate 0.3 mmol/L 0.0 - 0.2 08/12/2017 H [facility] [place] CMP Sodium 135 mmol/L 136 - 145 08/12/2017 L [facility] [place] CMP Potassium 4.3 mmol/L 3.5 - 5.1 08/12/2017 N [facility] [place] CMP Chloride 96 mmol/L 98 - 107 08/12/2017 L [facility] [place] CMP CO2 27 mmol/L 22 - 32 08/12/2017 N [facility] [place] CMP Glucose 308 mg/dL 70 - 99 08/12/2017 H [facility] [place] CMP BUN 27.0 mg/dL 5.0 - 21.0 08/12/2017 H [facility] [place] CMP Creatinine 0.89 mg/dL 0.60 - 1.20 08/12/2017 N [facility] CMP Calcium 9.2 mg/dL 8.8 - 10.2 08/12/2017 N [facility] [place] CMP Total Protein 7.7 g/dL 6.4 - 8.3 08/12/2017 N [facility] [place] CMP Albumin Level 3.6 g/dL 3.5 - 5.2 08/12/2017 N [facility] [place] CMP Bili Total 1.2 mg/dL 0.3 - 1.2 08/12/2017 N [facility] [place] CMP Alk Phos 101 Units/L 35 - 105 08/12/2017 N [facility] [place] CMP AST 41 Inter. Units/L 5 - 40 08/12/2017 H [facility] [place] CMP ALT(SGPT) 45 Inter. Un its/L 10 - 45 08/12/2017 N [facility] [place] CMP Globulin 4.1 g/dL 1.9 - 3.9 08/12/2017 H [facility] [place] CMP Albumin/Globulin Ratio 0.9 g/dL 1.1 - 2.2 08/12/2017 L [facility] [place] CMP AGAP 12 6 - 16 08/12/2017 N [facility] Magnesium Magnesium 2.00 mg/dL 1.60 - 2.40 08/12/2017 N [facility] [place] Phosphorus Phos 1.7 mg/dL 2.5 - 4.5 08/12/2017 L [facility] [place] Trop T Troponin T 0.01 ng/mL 08/12/2017 NA Troponin T
Normal: <0.03 ng/mL
Guevara Zone (Indeterminate):* 0.03 0.09 ng/mL
Critical Value: 0.10 ng/mL and above
<br/ >
*Minimal myocardial injury and increased risk for myocardial infarction. Use in conjunction with a history, patient symptoms and/or ECG changes. Serial measurements are important to assess the possibility of myocardial infarction. Other non-acute coronary syndrome conditions, including tachycardia, coronary vasospasm, congestive heart failure, myocarditis, pulmonary embolus and sepsis could result in myocardial damage and a persistent low level increase in Troponin levels.
Indicative of myocardial infarction
[facility] [place] LacticAcid Lactic Acid Lvl 1.6 m mol/L 0.5 - 2.2 08/12/2017 N [facility] [place] PTT PTT 32.7 second 22.4 - 38.6 08/12/2017 N Standard Heparin Therapeutic Range: 71-1 06 sec
[facility] Protime PT 13.9 second 11.5 - 14.9 08/12/2017 N [facility] [place] Protime INR 1.1 0.8 - 1.2 08/12/2017 N 2.0 - 3.0: Prophylaxis of venous thrombo sis; treatment of venous thrombosis or pulmonary embolism; prevention of systemic embolism; tissue heart valve; acute myocardial infarct; valvular heart disease; atrial fibrillation.
2.5 - 3.5: Mechanical prosthetic valves; recurrent systemic embolism.
The INR is only relevant to patients that are on coumadin therapy.
[facility] Auto Diff Neutrophils 71.5 % 47.0 - 75.0 08/12/2017 N [facility] Auto Diff Lymphs 22.5 % 14.0 - 40.0 08/12/2017 N [facility] Auto Diff Monocytes % 5.1 % 5.0 - 10.0 08/12/2017 N [facility] Auto Diff Eosinophil % 0.6 % 0.0 - 6.0 08/12/2017 N [facility] Auto Diff Basophil % 0.3 % 0.0 - 1.5 08/12/2017 N [facility] Auto Diff Immature Granulocytes % 0. 0 % 0.0 - 1.0 08/12/2017 N [facility] Auto Diff Neutro Absolute 2.3 x1 0'3/microL 1.7 - 6.7 08/12/2017 N [facility] [place] Auto Diff Lymph Absolute 0.7 x1 0'3/microL 0.8 - 3.0 08/12/2017 L [facility] Auto Diff Bollinger Absolute 0.2 x1 0'3/microL 0.2 - 1.1 08/12/2017 N [facility] Auto Diff Eos Absolute 0.0 x1 0'3/microL 0.0 - 0.6 08/12/2017 N [facility] [place] Auto Diff Basophil Absolute 0.0 x1 0'3/microL 0.0 - 0.1 08/12/2017 N [facility] [place] Auto Diff Immature Granulocytes Abs 0.0 x10'3/microL 0.0 - 0.5 08/12/2017 N [facility] [place] CBC/Diff WBC 3.2 x10'3/micro L 4.8 - 10.8 08/12/2017 L [facility] [place] CBC/Diff RBC 3.78 x10'6/micr oL 4.20 - 5.40 08/12/2017 L [facility] CBC/Diff Hgb 11.2 g/dL 12.0 - 16.0 08/12/2017 L [facility] CBC/Diff Hct 34.8 % 36.0 - 47.0 08/12/2017 L [facility] CBC/Diff MCV 92.1 fL 81.0 - 99.0 08/12/2017 N [facility] CBC/Diff MCH 29.6 pg 27.0 - 34.0 08/12/2017 N [facility] CBC/Diff MCHC 32.2 g/dL 33.4 - 35.5 08/12/2017 L [facility] CBC/Diff RDW 47.3 fL 36.4 - 46.3 08/12/2017 H [facility] CBC/Diff Platelet 127 x10 '3/microL 130 - 400 08/12/2017 L [facility] CBC/Diff MPV 11.3 fL 9.4 - 12.3 08/12/2017 N [facility] Glu POC DEL Glucose Level (POC) 315 mg/dL 70 - 100 08/12/2017 H Meter: [id number]~Test Lab Technician: [id number] TOPHER YODER
[facility] Glu POC ORM Glucose Level (POC) 188 mg/dL 70 - 100 04/12/2017 H Meter: [id number]~Test Lab Technician: [id number] Sammy Smith
[facility] Renal Funct Index GFR (CKD-EPI) 82.8 mL/min/1.73 m2 04/12/2017 NA GFR calculated based on CKD -EPI Creatinine Equation (2009).
Age(years) Average GFR
20-29 116 mL/min/1.73 m^2
30-39 107 mL/min/1.73 m^2
40-49 99 mL/min/1.73 m^2
50-59 93 mL/min/1.73 m^2
60-69 85 mL/min/1.73 m^2
70+ 75 mL/min/1.73 m^2

Acceptable GFR =>60 mL/min/1.73 m^2
Chronic Kidney Disease <60 mL/min/1.73 m^2
Kidney Failure <15 mL/min/1.73 m^2
[facility] BMP Sodium 140 mmol/L 136 - 145 04/12/2017 N [facility] BMP Potassium 4.7 mmol/L 3.5 - 5.1 04/12/2017 N [facility] BMP Chloride 100 mmol/L 98 - 107 04/12/2017 N [facility] BMP AGAP 14 3 - 20 04/12/2017 N [facility] BMP CO2 26 mmol/L 22 - 29 04/12/2017 N [facility] BMP Glucose 223 mg/dL 70 - 99 04/12/2017 H [facility] BMP BUN 35 mg/dL 8 - 23 04/12/2017 H [facility] BMP Creatinine 0.72 mg/dL 0.50 - 0.90 04/12/2017 N Creatinine result is standardized to the internationally accepted Isotope Dilution Mass Spectrometry (IDMS).
[facility] BMP Calcium 9.8 mg/dL 8.8 - 10.2 04/12/2017 N [facility] PTT PTT 24.3 second 22.8 - 36.3 04/12/2017 N [facility] Protime PT 12.8 second 11.0 - 15.2 04/12/2017 N [facility] Protime INR 1.0 04/12/2017 NA Therapeutic Range 2.0 to 3.0
[facility] Auto Diff Neutrophils 51.4 % 42.7 - 77.1 04/12/2017 N [facility] Auto Diff Lymphs 36.9 % 12.1 - 45.3 04/12/2017 N [facility] Auto Diff Monocytes % 7.5 % 4.4 - 12.5 04/12/2017 N [facility] Auto Diff Eosinophil % 2.8 % 0.0 - 5.6 04/12/2017 N [facility] Auto Diff Basophil % 0.8 % 0.0 - 1.0 04/12/2017 N [facility] Auto Diff Immature Granulocytes % 0. 6 % 0.0 - 1.0 04/12/2017 N [facility] Auto Diff Neutro Absolute 3.6 x1 0'3/microL 1.4 - 6.8 04/12/2017 N [facility] Auto Diff Lymph Absolute 2.6 x1 0'3/microL 0.6 - 3.2 04/12/2017 N [facility] Auto Diff Bollinger Absolute 0.5 x1 0'3/microL 0.2 - 0.9 04/12/2017 N [facility] Auto Diff Eos Absolute 0.2 x1 0'3/microL 0.0 - 0.6 04/12/2017 N [facility] Auto Diff Basophil Absolute 0.1 x1 0'3/microL 0.0 - 0.1 04/12/2017 N [facility] Auto Diff Immature Granulocytes Abs 0.04 x10'3/microL 0.01 - 0.03 04/12/2017 H [facility] CBC/Diff WBC 7.1 x10'3/micro L 5.4 - 10.8 04/12/2017 N [facility] CBC/Diff RBC 4.39 x10'6/micr oL 3.79 - 5.19 04/12/2017 N [facility] CBC/Diff Hgb 13.7 g/dL 11.2 - 15.7 04/12/2017 N [facility] CBC/Diff Hct 41.8 % 34.1 - 44.9 04/12/2017 N [facility] CBC/Diff MCV 95.2 fL 83.7 - 99.5 04/12/2017 N [facility] CBC/Diff MCH 31.2 pg 27.6 - 33.1 04/12/2017 N [facility] CBC/Diff MCHC 32.8 g/dL 31.3 - 34.9 04/12/2017 [facility] CBC/Diff RDW 43.8 fL 38.6 - 50.2 04/12/2017 N [facility] CBC/Diff Platelet 192 x10 '3/microL 126 - 432 04/12/2017 N [facility] CBC/Diff MPV 11.6 fL 9.2 - 12.2 04/12/2017 N [facility] CBC/Diff NRBC 0.0 /100WBC 0.0 - 0.2 04/12/2017 N [facility] CBC/Diff Abs NRBCs 0.00 x1 0'3/microL 0.00 - 0.01 04/12/2017 N [facility] No data available for this section No data available for this section [facility] Pathology Reports No Data Provided for This Section Diagnostic Reports Report Value Date Source CT Head/Brain WO Contrast Patient Name: KASEY RICKS : [address] [address]- Radiology Reports CPT code 21289 CDM code CDM description [id number] CT Head/Brain WO Contrast Reason For Exam: fall Addendum INDICATION: Fall. Hit back of head. Dictating Ramirez Vigil Dictated 02/12/2020 11:[address] Szymanski, Location: [id number] Addended Report Transcribed by: DORIS 02/12/20 11:29 Signed by: RAMIREZ SZYMANSKI MD 02/12/20 11:29 Report EXAM: CT BRAIN WITHOUT CONTRAST INDICATION: Fall. COMPARISON: Head CT on 08/03/2018 TECHNIQUE: Axial images from foramen magnum to vertex without contrast. 2D reconstructions were performed. Coronal and sagittal reformations were obtained. Up-to-date CT equipment and radiation dose reduction techniques were employed. FINDINGS: EXTRAAXIAL SPACE: Ventricles appear age appropriate and maintain midline position. No collections or mass lesion. CEREBRUM: There are, in general, changes of advancing chronological age including mild ventriculomegaly, mild sulcal and cisternal prominence, and arteriosclerotic changes in the proximal intracranial carotid and vertebral arteries. There are white matter changes consistent with chronic ischemic related demyelination. Chronic appearing lacunar infarct left basal ganglia. There is no evidence of a mass lesion, intra/extra axial fluid collection or hydrocephalus. There is no hemorrhage. CEREBELLUM: Cerebellar hemispheres and vermis are well formed without mass lesion or focal attenuation abnormality. Basal cisterns are maintained. BRAINSTEM: Midbrain, shawna, and medulla are well formed without mass or definite focal attenuation abnormality allowing for skull base artifacts. Radiology Reports Report SKULL/EXTRACRANIAL STRUCTURES: Bilateral paranasal sinuses are clear. Mastoid air cells and middle ear cavity without significant disease. Pituitary fossa and orbits without definite mass. Calvarium and visualized skull base appear unremarkable. IMPRESSION: Changes of advancing chronological age and chronic ischemic changes. No evidence of an acute intracranial abnormality. Dictating Ramirez Vigil Dictated 01/27/2020 20:[address] Szymanski, Location: [id number] Final Transcribed by: DORIS 01/27/20 20:57 Signed by: RAMIREZ SZYMANSKI MD 01/27/20 20:57 Report last revised on 02/12/2020 11:29 EDT by RAMIREZ SZYMANSKI MD 01/27/2020 [facility] XR Ribs 3V LT - Include PA Chest Patient Name: KASEY RICKS : [address] [address]- Radiology Reports CPT code 60860 CDM code CDM description [id number] XR Ribs 3V LT - Include PA Chest Reason For Exam: fall Report EXAM: CHEST X-RAY WITH LEFT RIBS INDICATION: Fall; pain. COMPARISON: No prior comparison. VIEWS: 5 FINDINGS: MINERALIZATION: Decreased. FRACTURE: Mild bilateral AC joint osteoarthrosis. Acute, oblique, mildly displaced fractures of the left posterior-lateral ribs 4-5. Mild thoracic and lumbar spine DJD. LUNGS: Clear. No pneumothorax. HEART/MEDIASTINUM: Calcified atherosclerotic disease thoracic aorta. IMPRESSION: Acute fractures left ribs 4-5. No pneumothorax. Dictating Alisha Vanegas 01/27/2020 21:[address] Solares, Location: [id number] Final Transcribed by: OZZY 01/27/20 21:28 Signed by: ALISHA SOLARES MD 01/27/20 21:28 01/27/2020 [facility] US Needle Placement Guidance Patient Name: KASEY RICKS : [address] [address]- Radiology Reports CPT code 78383 42812 CDM code CDM description [id number] US Needle Placement Guidance [id number] US Inj Extermity Pseudoaneurysm Reason For Exam: left wrist pseudoaneurysm Report Exam: Ultrasound-guided injection of thrombin into left brachial arterial pseudoaneurysm INDICATION: Left brachial arterial pseudoaneurysm following left brachial arterial access with thrombin injection PROCEDURES: 1. Ultrasound-guided thrombin injection into left brachial arterial pseudoaneurysm Informed written and verbal concent was obtained of explaining the risks and benefits of the procedure, all the questions were answered. Ultrasonographic evaluation of left to brachial artery showed a 1.5 cm pseudoaneurysm arising at the access site with the neck of 2 mm. Left arm was prepped and draped in usual sterile fashion. Under ultrasonographic guidance, micropuncture needle was placed into pseudoaneurysm and 500 units of thrombin was injected slowly until no flow is seen in pseudoaneurysm. Post procedure ultrasonogram showed thrombosed pseudoaneurysm with patent brachial, radial and ulnar arteries. Alignment arterial patency was not documented. IMPRESSION: 1. Successful ultrasound-guided thrombin injection into left brachial arterial pseudoaneurysm. Dictating Eric Guzman Dictated 05/01/2019 07:[address] Alvarado, Location: [place] [id number] Final Transcribed by: GENEVIEVE 05/01/19 07:44 Signed by: ERIC ALVARADO MD 05/01/19 07:44 04/28/2019 [facility] US Ext Upper Arterial Duplex LT Patient Name: KASEY RICKS : [address] [address]- Radiology Reports CPT code 60982 CDM code CDM description [id number] US Ext Upper Arterial Duplex LT Reason For Exam: Left brachial artery occlusion Report Exam: Left arm limited ultrasonogram INDICATION: Left arm swelling following brachial access for lower extremity vascular intervention TECHNIQUE: Limited vascular ultrasonogram of left to brachial, ulnar and radial arteries were performed with grayscale, Doppler and spectral wave analysis. FINDINGS: Left brachial artery is patent. However, mild luminal irregularity is seen in mid third, suggestive of atherosclerotic disease.] Access site in distal brachial artery, grayscale evaluation showed a 1.5 cm anechoic area with toe and froe movement of blood within it of 2 mm. Brachial artery at the antecubital fossa and ulnar artery are normal. Diffuse intimal irregularity is seen in the radial artery, suggestive of disease, however, patent. IMPRESSION: 1. A 1.5 cm pseudoaneurysm is seen arising at brachial arterial access site with the neck of 2 mm. 2. Diffuse nonocclusive disease is seen in the radial artery and mid brachial artery. Dictating Eric Guzman Dictated 04/28/2019 15:[address] Alvarado, Location: [id number] Final Transcribed by: GENEVIEVE 04/28/19 15:44 Signed by: ERIC ALVARADO MD 04/28/19 15:44 04/28/2019 [facility] SP Angioplast Fem/Pop W Artherect Stent Patient Name: KASEY RICKS : [address] [address]- Radiology Reports CPT code 36180 19349 Q9967 CDM code CDM description [id number] SP US Vascular Access Guidance [id number] SP Angioplast Fem/Pop W Artherect Stent [id number] C Contrast Isovue 300/ML Reason For Exam: pad Report Exam: Left lower extremity angiogram, atherectomy and angioplasty of superficial femoral and popliteal arteries INDICATION: Significant left lower extremity claudication PROCEDURES: 1. Ultrasound guidance 2. Left lower extremity angiogram 3. Atherectomy of superficial femoral artery with 1.5 mm diamondback 4. Balloon angioplasty of left superficial femoral arterial stenosis with 4 mm balloon 5. Placement of 5 x 60 mm self-expanding stent in proximal superficial femoral arterial residual stenosis 6. Atherectomy of proximal left popliteal artery stenosis with diamondback, 1.5 mm 7. Balloon angioplasty of proximal popliteal arterial stenosis with 4 mm balloon Radiologist: Eric Alvarado Contrast: 95 mL of nonionic contrast Anesthesia: General anesthesia Access: 1. Left limb of aorto bifemoral graft with micropuncture needle 2. Left brachial artery Fluoroscopy time: 21.5 minutes Images: 35 DSA runs, 8 spot images TECHNIQUE: Informed written and verbal concent was obtained of explaining the risks and benefits of the procedure, all the questions were answered. Left groin was prepped and draped in usual sterile fashion. Left limb of aortobifemoral graft was accessed with micropuncture needle and angiogram was performed. Few attempts were made to place 018 wire across severe stenosis/occlusion of proximal left superficial femoral artery Radiology Reports Report unsuccessfully. Hence, left arm was prepped and draped in usual sterile fashion. Distal brachial artery was accessed with micropuncture needle and an 018 guidewire was placed. Over the guidewire, 6-Beninese Slim the sheath was placed. With the help of contra catheter, 035 wholly wire was placed into left limb of aortobifemoral graft and 6-Beninese sheath was advanced with its tip in distal left limb of aortobifemoral graft. Left lower extremity runoff was performed. With the help of 018 support [place] [address] widened, severely stenosed/occluded proximal superficial femoral artery stenosis, short focal stenosis in mid left superficial femoral artery and proximal left popliteal arteries were successfully crossed and conformed with injection of contrast. Viper wire was placed in proximal peroneal artery. Over the wire, atherectomy of proximal superficial femoral artery was performed with 1.5 mm diamondback device. Balloon angioplasty was performed with 4 mm balloon. Later, sheath was exchanged for 90 cm long, 5 mm sheath over 035 wire. Viper wire was placed in proximal peroneal artery. Over the wire, atherectomy of mid superficial femoral and proximal popliteal artery stenosis was performed. Later, balloon angioplasty was performed with 4 mm balloon in these [address] Completion left lower extremity angiogram showed significant recoil stenosis in proximal superficial femoral artery. Hence, a 6-Beninese, 90 cm sheath was exchanged over 035 wire with its tip in distal limb of aortobifemoral graft. A 5 mm x 60 mm self-expanding stent was placed in proximal superficial femoral artery and dilated with 4 mm balloon. Completion left lower extremity lower extremity runoff was performed. Heparin was given aspirin protocol. 400 mcg of nitroglycerin was given intra-arterially in 2 aliquots. FINDINGS: Left lower extremity angiogram showed severe stenosis/occlusion in proximal superficial femoral artery extending to 4 cm. Focal significant stenosis is seen in mid superficial femoral artery and proximal popliteal artery. 2 vessel runoff is seen with posterior tibial and peroneal arteries. Anterior tibial arteries occluded at origin. Following atherectomy, balloon angioplasty and self-expanding stent placement in proximal social femoral arteries, no evidence of residual stenosis. Following atherectomy and angioplasty in mid superficial femoral arterial stenosis, no evidence of significant residual stenosis. Following atherectomy and angioplasty of proximal popliteal arterial stenosis, 30-40% stenosis is seen, stent could not be reached, hence, was not placed. IMPRESSION: 1. Successful atherectomy followed by balloon angioplasty and placement of self-expanding stent for residual stenosis secondary to recoil in proximal left superficial femoral arterial stenosis. 2. Successful atherectomy followed by balloon angioplasty of mid superficial femoral and proximal popliteal arterial stenosis as described. Patient should be on Plavix for at least 6 months. Dictating Eric Guzman Dictated 04/27/2019 15:[address] Alvarado, Location: [id number] Final Transcribed by: GENEVIEVE 04/27/19 15:33 Signed by: ERIC ALVARADO MD 04/27/19 15:33 04/27/2019 [facility] XR Radiology Consult Patient Name: KASEY RICKS : [address] [address]- Radiology Reports Reason For Exam: left superficial femoral artery disease Report Reason for consult: Bilateral leg pain Referring physician: Todd Betnacourt M.D. Chief complaint: Left leg pain following walking HISTORY OF PRESENT ILLNESS: Known patient of peripheral vascular disease with aortobifemoral graft and right internal femoral popliteal graft, significant left leg claudication, for evaluation for percutaneous intervention ALLERGIES: Lidocaine and Tylenol MEDICAL HISTORY: Peripheral vascular disease, diabetes mellitus, hypothyroidism, hyperlipidemia, hypertension, SURGICAL HISTORY: An aortobifemoral graft, right femoral-popliteal graft appendectomy, cataract surgery, colonoscopy MEDICATIONS: Amlodipine, nitroglycerin, hydrochlorothiazide, levothyroxine, ranitidine, atorvastatin, metoprolol, metformin, glipizide On examination: VITAL SIGNS: Heart rate is 73 bpm, blood pressure 1 75 x 62, oxygen saturations are 99% HEENT: Negative HEART: S1-S2 heard LUNGS: Clinically clear ABDOMEN: Soft, nontender NEUROLOGICAL: Awake, alert and well oriented EXTREMITIES: (Are not palpable, no evidence of trophic changes Imaging studies: Severe diffuse disease is seen in left superficial femoral artery PLAN: Left lower extremity angiogram, possible atherectomy and angioplasty, via left brachial approach or left limb of aortobifemoral graft Risks and benefits of the procedure, including bleeding, dissection, embolization, but not limited to above were explained to the patient. Patient wants the procedure to under anesthesia. Dictating Eric Guzman Dictated 04/19/2019 11:[address] Alvarado, Radiology Reports Report Location: [id number] Final Transcribed by: GENEVIEVE 04/19/19 11:13 Signed by: ERIC ALVARADO MD 04/19/19 11:13 04/18/2019 [facility] CT Angio Abd Aorta W Runoff WorW/WO Cont Patient Name: KASEY RICKS : [address] [address]- Radiology Reports CPT code 78642 Q9967 CDM code CDM description [id number] CT Angio Abdomen Aorta W Runoff [id number] C Contrast Omnipaque 350/ML Reason For Exam: I73.9 Peripheral vascular disease, unspecified Report EXAM: CTA ABDOMEN, PELVIS AND RUNOFF VESSELS INDICATION: Peripheral vascular disease, right lower extremity tingling COMPARISON: Bilateral lower extremity angiogram, 06/24/2018, CT angiogram of abdomen and both lower extremities, 06/03/2018 TECHNIQUE: A CTA study of the abdominal aorta was performed using contiguous axial cuts obtained from the lung bases through both lower extremities following the intravenous administration of 150 mL of contrast. 3D MIP reformations were performed on a dedicated workstation from the axial data set. Up-to-date CT equipment and radiation dose reduction techniques were employed. FINDINGS: ABDOMINAL AORTA: Measures 1.7 cm in size. No dissection or aneurysm. Aorto bifemoral graft is patent. MESENTERIC ARTERIES: No significant stenosis, aneurysm, dissection or filling defect. RENAL ARTERIES: Significant stenosis is seen in proximal right renal artery secondary to calcific atherosclerotic disease. COMMON ILIAC ARTERIES: Bilateral common iliac arteries are occluded EXTERNAL ILIAC ARTERIES: Bilateral external iliac arteries are occluded COMMON FEMORAL ARTERIES: Significant calcific disease is seen in distal left common femoral artery, causing moderate stenosis. SUPERFICIAL FEMORAL ARTERIES: Right femoral-popliteal graft is patent. Diffuse disease is seen in left superficial femoral artery with areas of possible critical stenosis secondary to calcific atherosclerotic disease POPLITEAL ARTERIES: No significant stenosis, aneurysm, dissection or filling defect. ANTERIOR TIBIAL ARTERIES: Bilateral anterior tibial arteries are occluded POSTERIOR TIBIAL ARTERIES: No significant stenosis, aneurysm, dissection or filling defect. Radiology Reports Report PERONEAL ARTERIES: No significant stenosis, aneurysm, dissection or filling defect. LUNG BASES: Clear. LIVER: No mass. No intrahepatic biliary dilatation. GALLBLADDER: No wall thickening. Small calcified stones are seen in dependent portion. COMMON BILE DUCT: Normal caliber. No radiopaque stones. SPLEEN: Within normal limits. PANCREAS: No mass. No pancreatic fluid collections. ADRENALS: No mass. KIDNEYS: Subcentimeter hypodense lesions are seen in left kidney, probably represent cysts. Vascular calcification. No hydronephrosis. LYMPH NODES: No adenopathy. STOMACH, SMALL BOWEL AND COLON: No bowel wall thickening or obstruction. PERITONEAL CAVITY: No mesenteric stranding or free fluid. OSSEOUS STRUCTURES: No acute fracture or destructive lesion. PELVIC ORGANS: Soft tissue density is seen in right adnexal lesion measuring 2.6 cm and left adnexal region measuring 3 cm, suggestive of ovary. SOFT TISSUES: Normal. IMPRESSION: 1. Significant stenosis is seen in proximal right renal artery 2. Aortobifemoral graft is patent. 3. Interval placement of right femoral-popliteal graft and is patent 4. Significant calcific atherosclerotic disease is seen in left superficial femoral artery with areas of critical stenosis 5. Bilateral anterior tibial arteries are occluded 6. Cholelithiasis Dictating Eric Guzman Dictated 04/07/2019 07:[address] Alvarado, Location: [id number] Final Transcribed by: GENEVIEVE 04/07/19 07:50 Signed by: ERIC ALVARADO MD 04/07/19 07:50 04/06/2019 [facility] XR Spine Lumbar 2/3V [address] [address]- Radiology Reports CPT code 96567 CDM code CDM description [id number] XR Spine Lumbar 2/3V Reason For Exam: WEAKNESS OF RIGHT LEG Report EXAM: LUMBAR SPINE INDICATION: Weakness of right leg. COMPARISON: None VIEWS: 3 FINDINGS: BONE DENSITY: Normal mineralization. VERTEBRAL BODIES: No fracture, endplate demineralization or lytic/blastic lesion. DISK SPACES: Disk space height preserved. ALIGNMENT: No listhesis or scoliosis. JOINT SPACES: Facet arthrosis is present within the distal lumbar spine. Dense aortoiliac calcification is present.. IMPRESSION: 1. Distal lumbar facet arthrosis without spondylolisthesis. 2. No evidence of acute osseous abnormality. Dictating Curt Subramanian Dictated 11/22/2018 16:[address] Stephen, Location: [id number] Final Transcribed by: KENDY 11/22/18 16:56 Signed by: CURT STEPHEN MD 11/22/18 16:56 11/16/2018 [facility] XR Ankle 2V RT [address] [address]- Radiology Reports CPT code 08965 CDM code CDM description [id number] Reason For Exam: ORIF Report EXAM: RIGHT ANKLE INDICATION: ORIF COMPARISON: Right ankle radiographs dated 08/13/2018 at 10:17 AM VIEWS: 3 fluoroscopic spot images FINDINGS: Limited fluoroscopic spot images provided primarily for intraoperative guidance demonstrate fixation of a distal fibula fracture utilizing a lateral plate and screws, and fixation of a medial malleolus fracture utilizing two cancellous screws. Fluoroscopy time = 1.6 minutes Dictating Amanda Coleman Dictated 08/14/2018 01:[address] Mendiola, Location: [facility] Final Transcribed by: GLORIA 08/14/18 01:53 Signed by: AMANDA MENDIOLA MD 08/14/18 01:53 08/13/2018 [facility] [place] 2[place] [address]- Radiology Reports CPT code 40527 CDM code CDM description [id number] Reason For Exam: Evaluate fracture Report EXAM: RIGHT ANKLE INDICATION: Fracture, follow-up examination. COMPARISON: Radiographs dated 08/03/2018. VIEWS: 2 FINDINGS: BONE DENSITY: Normal. JOINT SPACES: Mild widening of the medial ankle clear space. Ankle joint effusion. FRACTURE: Acute, Chambers type B spiral fracture of the distal fibula is redemonstrated. There is mildly increased lateral displacement of the distal fragment, now measuring 4 mm. Acute, transverse medial malleolus fracture is also redemonstrated. There is slightly increased distraction of fracture fragments compared to prior, now measuring 3 mm. DISLOCATION: None. SOFT TISSUES: Soft tissue edema around the ankle joint. Prominent enthesophyte at the Achilles tendon insertion. IMPRESSION: Redemonstrated acute bimalleolar fracture, with slightly increased displacement of fracture fragments since 08/03/2018. Dictating Amanda Coleman Dictated 08/14/2018 01:[address] Mendiola, Location: [id number] Final Transcribed by: GLORIA 08/14/18 01:51 Signed by: AMANDA MENDIOLA MD 08/14/18 01:51 08/13/2018 [facility] XR Hip Min 2V RT [facility] [address] [place] [address]- Radiology Reports CPT code 55811 CDM code CDM description [id number] XR Hip Min 2V RT Reason For Exam: hip pain Report EXAM: RIGHT HIP COMPLETE INDICATION: Hip pain. COMPARISON: None. VIEWS: 2 FINDINGS: BONE DENSITY: Normal. JOINT SPACES: Pelvic enthesopathy. Mild right hip joint degenerative change. FRACTURE: No definite fracture. DISLOCATION: None. SOFT TISSUES: Vascular calcifications. IMPRESSION: No definite fracture. Given the background of diffusely decreased bone mineralization, if there is clinical concern for a radiographically occult non-displaced fracture, then consider further evaluation with CT or MRI examination. Dictating Jennifer Ramirez Dictated 08/03/2018 20:41 Signing Jennifer Harris Location [id number] Final Transcribed by: RYANNE 08/03/18 20:41 Signed by: JENNIFER FRIEDMAN MD 08/03/18 20:41 08/03/2018 [facility] CT Head/Brain WO Contrast [facility] [address] [place] [address]- Radiology Reports CPT code 90836 CDM code CDM description [id number] CT Head/Brain WO Contrast Reason For Exam: KRISHNA Report EXAM: CT BRAIN WITHOUT CONTRAST INDICATION: Headache. Fall. Head trauma. COMPARISON: Head CT 08/12/2017. TECHNIQUE: Axial 5 mm images in bone and soft tissue algorithm from foramen magnum to vertex without contrast. Coronal and sagittal reformations were obtained. Up-to-date CT equipment and radiation dose reduction techniques were employed. FINDINGS: EXTRAAXIAL SPACE: Ventricles appear age appropriate and maintain midline position. No collections or mass lesion. CEREBRUM: Moderate ill-defined decreased cerebral white matter attenuation suggest microvascular ischemic changes appear stable. Focal area of decreased attenuation within left caudate is redemonstrated and compatible with a chronic caudate lacunar infarct. There are no areas of sulcal effacement. Guevara-white differentiation is preserved. CEREBELLUM: Cerebellar hemispheres and vermis are well formed without mass lesion or focal attenuation abnormality. Basal cisterns are maintained. Dense calcification of the distal left vertebral artery may indicate significant stenosis. BRAINSTEM: Midbrain, shawna, and medulla are well formed without mass or definite focal attenuation abnormality allowing for skull base artifacts. SKULL/EXTRACRANIAL STRUCTURES: Bilateral paranasal sinuses are clear. Mastoid air cells and middle ear cavity without significant disease. Calvarium is intact . IMPRESSION: 1. No acute intracranial hemorrhage. 2. No intra-axial mass effect to suggest a recent large vessel territory CVA. 3. Chronic left caudate lacunar infarct. Dictating Curt Subramanian Dictated 08/03/2018 20:56 Signing Curt Bradley Radiology Reports Report Location [id number] Final Transcribed by: KENDY 08/03/18 20:56 Signed by: CURT STEPHEN MD 08/03/18 21:01 08/03/2018 [facility] CT Spine Cervical WO Contrast [address] [address]- Radiology Reports CPT code 59678 CDM code CDM description [id number] CT Spine Cervical WO Contrast Reason For Exam: trauma Report EXAM: CT CERVICAL SPINE WITHOUT CONTRAST INDICATION: COMPARISON: TECHNIQUE: Axial 1.25 mm images at 0.625 mm intervals through the cervical spine in bone and soft tissue algorithm with 2D reconstructions. Additional 3D reformatted images performed on an independent workstation. Up-to-date CT equipment and radiation dose reduction techniques were employed. FINDINGS: ALIGNMENT: Appropriate cervical lordosis without listhesis, uncovering of facet joints, or significant widening of posterior spinous processes. VERTEBRAL COLUMN: Vertebral bodies well formed without acute fracture or significant lytic/ blastic mass. CRANIOVERTEBRAL JUNCTION: No anomalies or subluxation identified. DISK LEVELS: Broad-based central disk protrusion at C3-4. Smaller central disk protrusions at C4-5 and C5-6. Disk osteophyte and facet hypertrophy cause moderate bilateral neural foraminal stenosis at C5-6 and C6-7. PARAVERTEBRAL SPACE: No mass or edema or abscess. Moderate emphysema in the lung apices. IMPRESSION: 1. No fracture. 2. Broad-based central disk protrusion at C3-4. 3. Smaller central disk protrusions at C4-5 and C5-6. 4. Disk osteophyte and facet hypertrophy cause moderate bilateral neural foraminal stenosis at C5-6 and C6-7. Dictating Jennifer Ramirez Dictated 08/03/2018 21:00 Signing Jennifer Harris Location [id number] Final Transcribed by: RYANNE 08/03/18 21:00 Signed by: JENNIFER FRIEDMAN MD 08/03/18 21:06 08/03/2018 [facility] XR Ankle Min 3V RT [facility] [address] [place] [address]- Radiology Reports CPT code 89639 CDM code CDM description [id number] XR Ankle Min 3V RT Reason For Exam: pain with deformity Report EXAM: RIGHT ANKLE INDICATION: Ankle pain with deformity. COMPARISON: None. VIEWS: 4 FINDINGS: BONE DENSITY: Bone demineralization. JOINT SPACES: Well preserved, no erosions. FRACTURE: Acute, closed Chambers B distal fibular fracture with minimal displacement. Acute, closed transverse medial malleolus fracture with minimal displacement. DISLOCATION: None. SOFT TISSUES: Soft tissue swelling over the medial and lateral malleolus. Calcaneal spurs at the plantar fascia and Achilles tendon insertions. IMPRESSION: 1. Acute, closed Chambers B distal fibular fracture with minimal displacement. 2. Acute, closed transverse medial malleolus fracture with minimal displacement. Dictating Jennifer Ramirez Dictated 08/03/2018 20:37 Signing Jennifer Harris Location [id number] Final Transcribed by: RYANNE 08/03/18 20:37 Signed by: JENNIFER FRIEDMAN MD 08/03/18 20:40 08/03/2018 [facility] [address] [place] [address]- Radiology Reports CPT code 95495 CDM code CDM description [id number] XR Hip Min 2V LT [id number] XR Hip Min 2V LT Reason For Exam: hip pain Report EXAM: LEFT HIP INDICATION: Pain with deformity. COMPARISON: None. VIEWS: 2 FINDINGS: BONE DENSITY: Bone demineralization. JOINT SPACES: Mild bilateral hip joint degenerative change. Pelvic enthesopathy. FRACTURE: None. DISLOCATION: None. SOFT TISSUES: Vascular calcifications. IMPRESSION: No definite fracture. Given the background of diffusely decreased bone mineralization, if there is clinical concern for a radiographically occult non-displaced fracture, then consider further evaluation with CT or MRI examination. Dictating Jennifer Ramirez Dictated 08/03/2018 20:40 Signing Jennifer Harris Location [id number] Final Transcribed by: RYANNE 08/03/18 20:40 Signed by: JENNIFER FRIEDMAN MD 08/03/18 20:41 08/03/2018 [facility] XR Chest 2V [address] [address]- Radiology Reports CPT code 35405 CDM code CDM description [id number] XR Chest 2V Reason For Exam: Pre-op Peripheral Surgery Report EXAM: TWO-VIEW CHEST INDICATION: Preop COMPARISON: 07/18/2018 VIEWS: 2 FINDINGS: LUNGS/PLEURA: Moderate COPD with chronic interstitial change. No acute focal consolidations or pleural effusions. HEART/MEDIASTINUM: Heart size appears stable. There is no evidence of a hilar mass. Aortic atherosclerosis. LIFE SUPPORT LINES: None. PNEUMOTHORAX: None. OSSEOUS STRUCTURES: Degenerative change. IMPRESSION: Moderate COPD with chronic interstitial lung change. No acute focal airspace consolidation. Dictating Teresa Cordoba Dictated 08/03/2018 08:[address] Ware, Location: [id number] Final Transcribed by: CARMELITA 08/03/18 08:03 Signed by: ANAI WARE MD 08/03/18 08:03 08/02/2018 [facility] US Carotid Duplex [place] [address] [address]- Radiology Reports CPT code 78782 CDM code CDM description [id number] US Carotid Duplex [place] Reason For Exam: PRE OP CABG Report EXAM: CAROTID ULTRASOUND INDICATION: Hypertension hyperlipidemia diabetes. Preop CABG COMPARISON: 08/13/2017 TECHNIQUE: Guevara-scale, duplex and color Doppler imaging of the cervical and vertebral distribution in both the carotid and vertebral arteries. FINDINGS: RIGHT CAROTID PEAK SYSTOLIC PEAK DIASTOLIC VELOCITIES ICA: 114 cm/sec 22 cm/sec CCA: 67 cm/sec 7 cm/sec ECA: 169 cm/sec 14 cm/sec VERT: 86 cm/sec 16 cm/sec ICA/CCA Ratio: Systolic 1.7 LEFT CAROTID PEAK SYSTOLIC PEAK DIASTOLIC VELOCITIES ICA: 193 cm/sec 37 cm/sec CCA: 77 cm/sec 13 cm/sec ECA: 119cm/sec 17 cm/sec VERT: 80 cm/sec 18 cm/sec ICA/CCA Ratio: Systolic 2.5 Moderate to severe atherosclerotic plaque disease was demonstrated bilaterally. Spectral analysis shows no broadening or reversibility. Vertebral artery flow is antegrade bilaterally. IMPRESSION: 50-69% stenosis left internal carotid artery. Moderate to severe atherosclerotic plaque disease bilaterally. Risk modification and surveillance imaging follow-up as warranted. Radiology Reports Report Dictating Teresa Cordoba Dictated 07/21/2018 12:[address] Ware, Location: [id number] Final Transcribed by: CARMELITA 07/21/18 13:00 Signed by: ANAI WARE MD 07/21/18 13:00 07/19/2018 [facility] [place]R [place] [address] [address] General Diagnostic ACCESSION EXAM DATE/TIME PROCEDURE ORDERING STATUS PATIENT AGE AT PROVIDER EXAM [id number] 07/18/2018 20:13 XR Chest 1V DIDI REDDY PA-C Auth (Verified) 73 years EDT CPT code 15427 CDM code CDM description [id number] XR Chest 1V Reason For Exam (XR Chest 1V) chest pain Report EXAM: SINGLE VIEW CHEST INDICATION: Chest pain COMPARISON: August 19, 2017. VIEWS: 1 FINDINGS: LUNGS/PLEURA: Emphysematous changes. Chronic interstitial changes. No acute infiltrate or effusion. HEART/MEDIASTINUM: Cardiomegaly. LIFE SUPPORT LINES: None. PNEUMOTHORAX: None. OSSEOUS STRUCTURES: No fracture or destructive lesion. IMPRESSION: Emphysematous changes. Cardiomegaly. No active pulmonary disease. Dictating Meaghan Hernandez Dictated 07/18/2018 20:[address] Grady, Location: [id number] Final Transcribed by: ZELALEM 07/18/18 20:17 Signed by: MEAGHAN GRADY MD 07/18/18 20:17 07/18/2018 [facility] SP Angio Abdominal W Run Off F [address] [address] Special Procedures ACCESSION EXAM DATE/TIME PROCEDURE ORDERING STATUS PATIENT AGE AT PROVIDER EXAM [id number] 06/24/2018 10:35 SP Angio NEREIDA PERALTA, TODD Ernst (Verified) 73 years EDT Abdominal W Run Off CPT code 43860 12841 85236 88269 60622 Q9967 Reason For Exam (SP Angio Abdominal W Run Off) stenosis Report EXAM: SP ANGIO ABDOMINAL W RUN OFF INDICATION: Bilateral lower extremity claudication, right greater than left. History of aortobifem bypass graft. COMPARISON: CT abdominal aortogram with bilateral lower extremity runoff 06/03/2018. DATE OF EXAMINATION: 06/24/2018. RADIOLOGIST: Candice Mckinney M.D. PROCEDURES PERFORMED: 1. Conscious sedation - 60 minutes. 2. Ultrasound-guided access of the patent right distal aortobifem bypass graft. 3. Lower abdominal aortogram with bilateral lower extremity runoff. MEDICATION: 1% Marcaine. Conscious sedation with fentanyl and Versed. FLUOROSCOPY TIME/RADIATION DOSE: 0.4 minutes ; 936 uGym2 ; 31 mGy VIEWS: A single exposure run was obtained for a total of 33 films. COMPLICATIONS: None. The procedure, benefits, and risks were discussed and informed written consent was obtained. A Timeout procedure was performed. The left wrist and bilateral groins were prepped and draped in the usual sterile fashion. The procedure was performed with all elements of maximal sterile barrier technique; including cap and mask, sterile down and gloves, a large sterile sheet, hand hygiene, and 2% Chlorhexidine for cutaneous antisepsis. Conscious sedation with 60 minutes of face to face time monitoring under physician direction was performed. The patient received 3 mg of Versed and 150 mcg of fentanyl IV with continuous hemodynamic, cardiac monitoring and pulse oximetry monitored throughout the procedure. Attempt was made to access the left radial artery for access down the bilateral lower extremities however it was noted that the left radial artery diffusely small and occluded given no blood [address] [place] [address] Special Procedures ACCESSION EXAM DATE/TIME PROCEDURE ORDERING STATUS PATIENT AGE AT PROVIDER EXAM [id number] 06/24/2018 10:35 MEHRDAD Angio NEREIDA PERALTA, TODD Ernst (Verified) 73 years EDT Abdominal W Run Off Report flow returned with needle placement and the wire could not be advanced. This access site was abandoned. The patent left distal aortobifem graft was accessed at the groin using real- time ultrasound guidance. Needle position confirmed with ultrasound and an image was stored in the patient's permanent medical record. A 5-Beninese sheath was placed. Over a Sikluson wire a reverse curve flush catheter was advanced into the lower abdominal aorta and a lower abdominal aortogram with bilateral lower extremity runoff was obtained. This demonstrated widely patent aortobifem bypass graft. The right superficial femoral artery is completely occluded at its origin. There is some retrograde filling of the more distal right superficial femoral artery via a large amount of profunda collaterals. The popliteal artery is patent on the right. There is a two- vessel runoff to the foot on the right primarily via the posterior tibial artery and a smaller peroneal artery. The proximal anterior tibial arteries occluded. The left superficial femoral artery is patent with moderate to severe stenoses at its proximal and mid aspect. The left popliteal artery is patent. There is a two-vessel runoff to the foot on the left an early viable posterior tibial artery and a small peroneal artery. The proximal left anterior tibial arteries occluded. IMPRESSION: 1. Widely patent aortobifemoral bypass graft. 2. Complete heavily calcified occlusion of the proximal right superficial femoral artery at its origin. The widely patent popliteal artery is reconstituted by a network of profunda collaterals. Access for intervention in this area is limited secondary to prior aortobifem bypass grafting. An attempt was made to access the left radial artery however the left radial artery is occluded. The patient will likely need surgical intervention/bypass. 3. The left superficial femoral artery is patent with moderate to severe proximal and mid stenoses. 4. Two-vessel runoff to the feet bilaterally primarily via the posterior tibial arteries and smaller bilateral peroneal arteries. The bilateral anterior tibial arteries are occluded. Dictating Candice Doyle Dictated 06/24/2018 11:[address] Mckinney, Location: [id number] Final Transcribed by: MICHELLE 06/24/18 11:13 Signed by: CANDICE MCKINNEY MD 06/24/18 11:13 06/24/2018 [facility] XR Radiology Consult [address] [address]- General Diagnostic ACCESSION EXAM DATE/TIME PROCEDURE ORDERING STATUS PATIENT AGE AT PROVIDER EXAM [id number] 06/22/2018 15:40 XR Radiology TODD DIAZ MD Auth (Verified) 73 years EDT Consult Reason For Exam (XR Radiology Consult) pvd Report INTERVENTIONAL RADIOLOGY CONSULTATION CHIEF COMPLAINT: Peripheral vascular disease. Claudication. HISTORY OF PRESENT ILLNESS: Kasey Ricks is a 73-year-old female with long- standing history of lower extremity pain exacerbated with walking. She states she has had some degree of pain in her lower extremities since she was a child. She describes the diffuse lower extremity pain as burning to cramping, right slightly greater than left. Rest alleviates the pain. She has history of a aortobifemoral bypass graft placement. Prior to the surgery she had a nonhealing wound along the right anterior aspect of the grier. After the surgery this wound has healed. She denies any current lower extremity wounds or nonhealing ulcers. PAST MEDICAL HISTORY: Diabetes mellitus, hypertension, peripheral vascular disease. PAST SURGICAL HISTORY: Aortobifemoral bypass grafting. FAMILY HISTORY: Extensive family history of PAD. SOCIAL HISTORY: Previous smoker for 60 years. Denies alcohol use. ALLERGIES: No drug allergies. REVIEW OF SYSTEMS: A 14 point review of systems was obtained and negative other than the above HPI. PHYSICAL EXAM: VS: HR 80; BP 184/65; RR 14; O2 Sat 95 percent on room air. HEENT: Normocephalic/atraumatic, extraocular movements are intact. HEART: Regular rate and rhythm, no murmurs rubs or gallops. LUNGS: Clear to auscultation bilaterally. ABDOMEN: Soft, nontender and nondistended. Admit: Patient KASEY RICKS Name: Disch: MR#:[id number]; [id number] [facility]#:[id number] Room: Unit:[facility] Admitting TODD DIAZ MD Physician: : [id number] Bed: Attending DIAZ MD, TODD B Physician: Sex:Female Age: 73 years Print System Generated ID: Patient Pre-Admit Chart Request [id number] Type: ID: Print Date/ 06/23/2018 14:25 EDT Time: Privileged and Confidential do not re-release [address] [address]- General Diagnostic ACCESSION EXAM DATE/TIME PROCEDURE ORDERING STATUS PATIENT AGE AT PROVIDER EXAM [id number] 06/22/2018 15:40 XR Radiology NEREIDA PERALTA, TODD Ernst (Verified) 73 years EDT Consult Report SKIN: No rash. Warm. EXTREMITIES: No deformities. IMAGING: Most recent imaging was reviewed. A CT angiogram of the abdominal aorta with bilateral lower extremity runoff performed 06/03/2018 demonstrates severe stenosis or occlusion of the right superficial femoral artery proximally just past the anastomosis of the bypass graft. The remainder of the right superficial femoral artery demonstrates multifocal stenoses secondary to calcified plaque. Left lower extremity demonstrates high-grade stenosis in the proximal left superficial femoral artery with multiple additional stenoses distally. ASSESSMENT: 73-year-old female with prior history of aortobifemoral bypass graft and bilateral peripheral vascular disease complaining of lower extremity pain and prior history of nonhealing wounds. There is either a severe proximal right superficial femoral artery stenosis or possible occlusion with additional bilateral moderate to severe SFA disease. PLAN: We will plan for a right lower extremity diagnostic angiogram with possible intervention to include atherectomy, angioplasty and/or stent placement. Given the history of prior aortobifem bypass grafting it may be difficult getting access into the right lower extremity from a left common approach. A radial or brachial access may be required and may possibly limit intervention further down the right leg. Given the highly calcified nature of the proximal right superficial femoral artery stenosis or occlusion in its also possible that the stenosis or occlusion may not be able to be crossed. In this case the patient would likely require surgical intervention. The risks, benefits and alternatives were extensively discussed with the patient and her family. She would like to proceed. Thank you for allowing us to participate in the care of your patient. Please do not hesitate to contact me or our department for any further questions or concerns regarding this matter. Dictating Candice Doyle Dictated 06/23/2018 14:[address] Mckinney, Location: [place] [address] Final Transcribed by: MICHELLE 06/23/18 14:22 Signed by: CANDICE MCKINNEY MD 06/23/18 14:22 Patient KASEY RICKS MR#: [id number]; [id number] [facility]#:[id number] Name: Print Date06/23/2018 14:25 EDT Time: Privileged and Confidential do not re-release 06/22/2018 [facility] CT Angio Abd Aorta W Runoff WorW/[place] [address] Radiology Reports CPT Code: 81443, Q9967 CDM Code: 6529356 (CT Angio Abdomen Aorta W Runoff), 6702824 (C Contrast Isovue 370/ML) Reason for Exam: I73.9 - Peripheral vascular disease, unspecified Report EXAM: CTA ABDOMEN, PELVIS AND RUNOFF VESSELS INDICATION: Peripheral vascular disease, unspecified. Bilateral claudication. COMPARISON: Arterial Doppler dated 11/08/2017, CT abdomen dated 04/01/2017, formal angiogram dated 04/12/[address] abdomen and pelvis dated 10/21/2017 TECHNIQUE: A CTA study of the abdominal aorta was performed using contiguous axial cuts obtained from the lung bases through both lower extremities following the intravenous administration of 150 mL of contrast. 3D MIP reformations were performed on a dedicated workstation from the axial data set. Up-to-date CT equipment and radiation dose reduction techniques were employed. FINDINGS: ABDOMINAL AORTA: Measures 2.2 cm in size. Patent aortobifemoral graft. Scattered atherosclerosis. No dissection or aneurysm. MESENTERIC ARTERIES: There is a 70% stenosis at the origin of the celiac trunk. 70% stenosis at the origin of the superior mesenteric artery. There is a 50% stenosis in the common hepatic artery secondary to soft plaque. The proximal inferior mesenteric artery is occluded with reconstituted flow from collateral circulation in the distribution. RENAL ARTERIES: Greater than 70% stenosis on the right. Mild stenosis on the left. COMMON ILIAC ARTERIES: The paimiut vessels are occluded bilaterally with patent graft. EXTERNAL ILIAC ARTERIES: Patent grafts bilaterally. Reconstituted flow in the right paimiut vessel with atherosclerosis causing 50% stenosis. There is reconstituted flow in the distal portion on the left. KASEY RICKS [id number] COMMON FEMORAL ARTERIES: On the right there is a patent graft with 50% narrowing of the patent paimiut vessel. The left there is a patent graft with minimal reconstituted filling in the paimiut vessel. SUPERFICIAL FEMORAL ARTERIES: Occluded proximally on the right similar to the prior examination with reconstituted flow in the small caliber vessel more distally with multiple areas of atherosclerosis with greater than 50% narrowing. On the left there is greater than 70% stenosis proximally with multiple levels of 50% stenosis more distally. POPLITEAL ARTERIES: Areas of 50% stenosis on the right. Stable appearing above the knee dissection on the left. Areas of 50% stenosis distally. ANTERIOR TIBIAL ARTERIES: Occluded bilaterally. POSTERIOR TIBIAL ARTERIES: Small caliber patent vessels bilaterally. PERONEAL ARTERIES: Small caliber patent vessels bilaterally. LUNG BASES: Mild atelectasis/scarring. There are coronary artery calcifications. LIVER: No mass. No intrahepatic biliary dilatation. GALLBLADDER: No wall thickening. No stones. COMMON BILE DUCT: Normal caliber. No stones. SPLEEN: Within normal limits. PANCREAS: No mass. No pancreatic fluid collections. ADRENALS: No masses. KIDNEYS: Subcentimeter simple cyst midpole on the left. There are a few other small hypodensities consistent with cysts not as well visualized on this examination as on the prior exam. No hydronephrosis. There are a few punctate nonobstructive renal calculi. The more renal calculi were present on the previous examination. LYMPH NODES: No adenopathy. STOMACH, SMALL BOWEL AND COLON: No bowel wall thickening or obstruction. Small hiatal hernia. PERITONEAL CAVITY: Uncomplicated fat-containing upper abdominal ventral hernias. No mesenteric stranding or free fluid. OSSEOUS STRUCTURES: No acute fracture or destructive lesion. Multilevel disk bulges in the lumbar spine causing mild central canal stenosis. PELVIC ORGANS: The ovaries are prominent with peripheral calcifications as before. The uterus is unremarkable. The urinary bladder is normal. Mild pelvic floor dysfunction. SOFT TISSUES: No focal mass. IMPRESSION: 1. Patent aorta to bilateral common femoral artery graft. 2. Right lower extremity: The superficial femoral artery is occluded proximally with reconstituted flow and multiple areas of 50% stenosis. 50% stenosis in the popliteal artery with two-vessel runoff to the foot via the posterior tibial and peroneal arteries. 3. Left lower extremity: High-grade stenosis in the proximal superficial femoral artery with multilevel stenosis inferiorly. Stable popliteal dissection with 50% stenosis. Two-vessel runoff to the foot via the posterior tibial and peroneal arteries. 4. 70% stenoses in the celiac trunk and proximal superior mesenteric arteries. 5. Greater than 70% stenosis in the right renal artery. 6. Prominent ovaries as before. Pelvic ultrasound is again recommended for further evaluation. Dictating Char Collado Dictated 06/04/2018 08:[address] Seymour, Location: [id number] Final Transcribed by: SHIRA 06/04/18 09:04 Signed by: CHAR SEYMOUR MD 06/04/18 09:04 06/04/2018 [facility] US Arterial [place] [address] Radiology Reports CPT Code: 51550 CDM Code: [id number] (US Arterial Doppler Ext Derrell Single Level) Reason for Exam: BILATERAL LEG PAIN/ STATUS POST BYPASS Report EXAMINATION: US ARTERIAL DOPPLER EXT DERRELL SINGLE LEVEL HISTORY: BILATERAL LEG PAIN/ STATUS POST BYPASS The patient had a screening vascular exam of the lower extremities. This exam was a study of the peripheral circulation limited to bilateral Ankle Brachial Indices. Right Left Ankle Posterior Tibial 0.45 0.78 Ankle Dorsalis Pedis 0.37 0.63 Waveforms were unremarkable. IMPRESSION: Moderate to borderline severe bilateral lower extremity arterial occlusive disease seen most notably involving right lower extremity. No interval improvement versus previous exam of 03/04/2017. Duplex imaging follow-up as warranted. Dictating Teresa Cordoba Dictated 11/08/2017 15:[address] Ware, Location: [id number] Final Transcribed by: CARMELITA 11/08/17 15:09 Signed by: ANAI WARE MD 11/08/17 15:09 KASEY RICKS [id number] 11/08/2017 [facility] CT Abdomen/Pelvis W/WO Contrast Urogram [place] [id number] Radiology Reports CPT Code: 14662, Q9967 CDM Code: 2569869 (CT Abdomen/Pelvis W/WO Contrast Urogram), 2582498 (C Contrast Omnipaque 350/ML) Reason for Exam: ; Dx: OTHER SPECIFIED DISORDERS OF KIDNEY AND URETER Report EXAM: CT UROGRAPHY INDICATION: Abnormal ultrasound COMPARISON: Renal ultrasound 09/10/2017, CT abdomen and pelvis 08/27/2017 , 02/06/2009 TECHNIQUE: Initial noncontrast axial images of the kidneys were performed. Contiguous axial images were then obtained from the lung bases to the pelvic floor following the intravenous administration of 150 mL of Omnipaque 350 contrast using triple phase technique with arterial, portal and delayed phases acquired. Coronal and sagittal reformations are provided. 3-D/MIP/VR/CPR postprocessing of the delayed images were also performed on an independent workstation. Up-to-date CT equipment and radiation dose reduction techniques were employed. FINDINGS: KIDNEYS: There are no enhancing masses. Previously visualized low attenuation focus in the upper pole the left kidney is nearly imperceptible in today's exam measuring approximately 7 mm, not well organized, most likely descending scarring. There are 2 cysts in the lower pole the left kidney measuring 8 and 4 mm respectively. No hydronephrosis. There are bilateral stones. Largest right renal stone is located in the lower pole measuring approximately 5 mm. Largest left renal stone is located in the upper pole measuring approximately 10 x 5 mm. URETERS: Normal caliber without filling defects. BLADDER: No mass. Normal wall thickness. No stone. LUNG BASES: Clear. LIVER : No mass. No intrahepatic biliary dilatation. GALLBLADDER: No wall thickening. Cholelithiasis. KASEY RICKS [id number] COMMON BILE DUCT: Normal caliber. No stones. SPLEEN: Stable borderline splenomegaly. PANCREAS: No mass. No pancreatic fluid collections. ADRENALS: No masses.. LYMPH NODES: No adenopathy. STOMACH, SMALL BOWEL AND COLON: No bowel wall thickening or obstruction. PERITONEAL CAVITY: No mesenteric stranding or free fluid. OSSEOUS STRUCTURES: No acute fracture or destructive lesion. ABDOMINAL AORTA: No aneurysm. Stable atherosclerotic changes. PELVIC ORGANS: There is a low-attenuation focus in the right adnexa measuring 2.7 x 2.8 cm. Left adnexal low-attenuation focus measuring 2.7 x 2.4 cm. IMPRESSION: 1. Low attenuation focus in the upper pole the left kidney in the area that previously visualized cystic focus, now smaller, most likely represent scarring, due to post inflammatory/infectious change. 2. Other left renal cysts are present. No enhancing masses of the [right kidney. 3. Nephrolithiasis without hydronephrosis. 4. Cholelithiasis. 5.Borderline splenomegaly. 6. Bilateral adnexal low-attenuation foci, most likely representing ovarian complex cystic masses, not significantly changed. Evaluation with pelvic ultrasound should be considered. Dictating Raffaele Box Dictated 10/21/2017 14:[address] Webber, Location: [id number] Final Transcribed by: JONATHAN 10/21/17 15:04 Signed by: RAFFAELE WEBBER MD 10/21/17 15:04 10/21/2017 [facility] [place] [address] Radiology Reports CPT Code: 26045 CDM Code: [id number] (US Renal Derrell) Reason for Exam: ; Dx: CYST OF KIDNEY, ACQUIRED;CYST OF KIDNEY, ACQUIRED Report EXAM: RENAL ULTRASOUND INDICATION: Renal cyst COMPARISON: CT dated 08/27/2017 TECHNIQUE: Multiplanar guevara-scale imaging of the kidneys was performed using a transabdominal technique. FINDINGS: RIGHT KIDNEY: Measures 9.2 x 4.2 x 3.9 cm in size. Small kidney with unremarkable echogenicity. No focal mass. No hydronephrosis. No nephrolithiasis. LEFT KIDNEY: Measures 10.9 x 4.3 x 5.4 cm in size. Normal echogenicity. The cystic lesion noted on CT was not well appreciated on the ultrasound. It has a complex appearance on CT and could represent a complex or proteinaceous cyst. Cystic neoplasm cannot be completely excluded. Follow- up imaging would be indicated. If clinically indicated additional imaging can be done with contrast MR. No hydronephrosis and no nephrolithiasis. BLADDER: Unremarkable. IMPRESSION: The complex cystic lesion noted on CT is not well appreciated or imaged on the ultrasound. See discussion above. Dictating Navi Cintron Dictated 09/10/2017 09:34 KASEY RICKS [id number] Sign[address] Dr. Kaufman, Location: [id number] Final Transcribed by: CHRISTINE 09/10/17 09:37 Signed by: NAVI KAUFMAN MD 09/10/17 09:37 09/10/2017 [facility] [place] [address] Radiology Reports CPT Code: 53121, Q9967 [facility] Code: 8243492 (CT Abdomen W Pelvis W Cont), 5441765 (C Contrast Omnipaque 350/ML) Reason for Exam: ACUTRE PYELONEPHRITIS Report EXAM: CT ABDOMEN AND PELVIS WITH IV CONTRAST INDICATION: Acute pyelonephritis. COMPARISON: 01/29/2009 TECHNIQUE: Contiguous axial images were obtained from the lung bases to the pelvic floor following the intravenous administration of 100 mL of Omnipaque 300. Coronal and sagittal reformations are provided.Up-to-date CT equipment and radiation dose reduction techniques were employed. Up-to- date CT equipment and radiation dose reduction techniques were employed. FINDINGS: LUNG BASES: Cardiomegaly. Tiny pericardial effusion. LIVER: Liver is enlarged measures 21 7-cm. No intrahepatic biliary dilatation. GALLBLADDER: No wall thickening. Question tiny gallstones COMMON BILE DUCT: Normal caliber. No stones. SPLEEN: Spleen mildly enlarged 13.5 cm. PANCREAS: No mass. No pancreatic fluid collections. ADRENALS: No masses. KIDNEYS: Low attenuating lesion upper pole left kidney measures 1.8 cm. There is minimal stranding identified adjacent to this as seen on the coronal images. This does not have characteristics of a simple cyst with Hounsfield values of up to 30. Couple of small cysts seen in the lower pole of the left kidney measuring up to 6 mm. The kidneys enhance normally KASEY RICKS [id number] There are multiple calculi seen in both kidneys. 5-6 calculi seen on the left and 3-4 on the right. Largest about 5 to 6 mm. Many of these are linear. No calculi identified in the ureters. No hydronephrosis. LYMPH NODES: No adenopathy. STOMACH, SMALL BOWEL AND COLON: No bowel wall thickening or obstruction. PERITONEAL CAVITY: No mesenteric stranding or free fluid. OSSEOUS STRUCTURES: No acute fracture or destructive lesion. ABDOMINAL AORTA: Aortobifemoral graft identified. Atherosclerotic calcification in the branches of the abdominal aorta. PELVIC ORGANS: Small cyst right ovary 2.4 cm. Nonemergent transvaginal ultrasound could be performed for further evaluation. IMPRESSION: 1. Low attenuating lesion 1.8 cm upper pole left kidney does not have characteristics of a simple cyst. Mild stranding in the adjacent fat. An infected cyst cannot be excluded. Correlation with the patient's pain and symptoms. Ultrasound could be performed for further evaluation. 2. Otherwise homogeneous enhancement of the kidneys, without evidence for diffuse pyelonephritis. 3. Multiple bilateral renal calculi as described above. No hydronephrosis and no calculi in the ureters. 4. Hepatosplenomegaly. 5. Question of gallstones. Dictating Fer Loya Dictated 08/27/2017 15:[address] Hurt, Location: [id number] Final Transcribed by: 08/27/17 15:49 Signed by: FER HURT MD 08/27/17 15:49 08/27/2017 [facility] XR Chest 1V [place] [address] Radiology Reports CPT Code: 45858 CDM Code: 6184842 (XR Chest 1V) Reason for Exam: CHF Report EXAM: SINGLE VIEW CHEST INDICATION: CHF COMPARISON: 08/12/2017 VIEWS: 1 FINDINGS: LUNGS/PLEURA: Mild interstitial prominence identified in both lungs. No effusions HEART/MEDIASTINUM: State LIFE SUPPORT LINES: None. PNEUMOTHORAX: None. OSSEOUS STRUCTURES: No fracture or destructive lesion. IMPRESSION: Mild interstitial prominence both lungs may represent mild changes of edema. Dictating Fer Loya Dictated 08/19/2017 15:40 Signing Fer Tyler Location [id number] Final Transcribed by: 08/19/17 15:40 Signed by: FER HURT MD 08/19/17 15:40 KASEY RICKS [id number] 08/19/2017 [facility] [place] [address] Radiology Reports CPT Code: 58931 CDM Code: [id number] (US Carotid Duplex [place]) Reason for Exam: possible tia Report EXAM: CAROTID ULTRASOUND INDICATION: TIA symptoms COMPARISON: None TECHNIQUE: Guevara-scale, duplex and color Doppler imaging of the cervical and vertebral distribution in both the carotid and vertebral arteries. FINDINGS: RIGHT CAROTID PEAK SYSTOLIC PEAK DIASTOLIC VELOCITIES ICA: 90 cm/sec 27 cm/sec CCA: 80 cm/sec 9 cm/sec ECA: 175 cm/sec 0 cm/sec VERT: 94 cm/sec 26 cm/sec ICA/CCA Ratio: Systolic 1.1 LEFT CAROTID PEAK SYSTOLIC PEAK DIASTOLIC VELOCITIES ICA: 159 cm/sec 25 cm/sec CCA: 76 cm/sec 10 cm/sec ECA: 135cm/sec 0 cm/sec VERT: 102 cm/sec 23 cm/sec ICA/CCA Ratio: Systolic 2.1 Imaging demonstrates extensive calcified plaque at the level of both common carotid arteries and involving the internal and external carotid arteries. Estimated degree of stenosis by Doppler evaluation in the internal carotid arteries is less than 50% on the right and between 50 and 69% on the left. Antegrade flow identified both vertebral arteries. KASEY RICKS [id number] IMPRESSION: Extensive plaque formation with calcifications bilaterally. Doppler evaluation indicates 50-69% stenosis left internal carotid artery. Dictating Navi Cintron Dictated 08/13/2017 11:25 Signing Navi Joe Location [id number] Final Transcribed by: CHRISTINE 08/13/17 11:25 Signed by: NAVI KAUFMAN MD 08/13/17 11:31 08/13/2017 [facility] [place] [address] Radiology Reports CPT Code: 39988 CDM Code: [id number] (MR Brain WO Cont) Reason for Exam: amnesia, confussion Report EXAM: MRI BRAIN WITHOUT CONTRAST INDICATION: Amnesia and confusion. COMPARISON: CT of the brain performed earlier on the same day. TECHNIQUE: Multiplanar imaging of the brain without contrast. FINDINGS: EXTRAAXIAL SPACE: Volume is age appropriate. There is no mass effect or midline shift. No extra-axial fluid collection is seen. CEREBRUM: There is a small focus of restricted diffusion within the left posterior subinsular region, in keeping with a small acute striatocapsular lacunar infarct. There is no significant mass effect. There is no evidence of acute hemorrhagic transformation. No abnormal focus of susceptibility is seen within the cerebrum or elsewhere in the brain. Patchy and confluent foci of T2 prolongation are seen throughout the bilateral centrum semiovale and the periventricular white matter, most consistent with chronic sequelae of small vessel ischemic disease. CEREBELLUM: Cerebellar hemispheres and vermis are well formed without mass lesion or signal abnormality. Basal cisterns are maintained. BRAINSTEM: Midbrain, shawna, and medulla are well formed without mass effect or signal abnormality. SKULL/EXTRACRANIAL STRUCTURES: The visualized paranasal sinuses appear clear. The visualized orbits appear to be within normal limits. Bilateral mastoid air cells appear clear. IMPRESSION: 1. Small acute striatocapsular lacunar infarct within the left posterior subinsular region. No significant mass effect. No evidence of acute hemorrhagic transformation. KASEY RICKS [id number] 2. Prominent chronic sequelae of small vessel ischemic disease. Dictating Ang Robles Dictated 08/12/2017 23:07 Signing Ang Graff Location [id number] Final Transcribed by: SUJATHA 08/12/17 23:07 Signed by: ANG CAMERON MD RATILAL 08/12/17 23:34 08/12/2017 [facility] [place] [address] Radiology Reports CPT Code: 75144, Q9967 [facility] Code: [id number] (CT Chest PE W Contrast), 0379268 (C Contrast Omnipaque 350/ML) Reason for Exam: SOB Report EXAM: CTA CHEST FOR PULMONARY EMBOLUS INDICATION: Shortness of breath. COMPARISON: None. TECHNIQUE: A CTA study of the chest was performed using contiguous axial cuts obtained from the thoracic inlet to the lung bases following the administration of intravenous contrast. A total of 60 mL of Omnipaque was infused with bolus tracking to the pulmonary arteries. 2D and 3D MIP reformations were performed. Up-to-date CT equipment and radiation dose reduction techniques were employed. FINDINGS: PULMONARY ARTERIES: Suboptimal evaluation of the subsegmental arteries due to breathing and beam hardening artifact. Otherwise, no pulmonary embolus is seen. LUNGS AND PLEURA: Right middle lobe pulmonary nodule on image 134 measuring 3 mm is unchanged. Minimal right middle lobe atelectasis. No effusions. Sewk-ra-[id number] emphysema. Mild bronchitis. MEDIASTINUM: No masses. Small hiatal hernia. Mild mural thickening of the esophagus is nonspecific but likely from esophagitis. LYMPH NODES: No adenopathy. HEART: Normal in size. Small pericardial effusion. Extensive coronary artery calcifications. AORTA AND GREAT VESSELS: No aneurysm or dissection. Aortic atherosclerosis. OSSEOUS STRUCTURES: No acute fracture or destructive lesion. Degenerative changes in the spine. Chronic right rib deformities, which could be postsurgical or posttraumatic in nature. KASEY RICKS [id number] UPPER ABDOMEN: Mild splenomegaly is nonspecific. Mild adrenal thickening without mass. IMPRESSION: 1. Limited evaluation of the subsegmental arteries due to artifact. Otherwise, no evidence of pulmonary embolus. 2. No acute abnormality. 3. Small pericardial effusion, nonspecific. Extensive coronary artery calcifications. 4. Mild/moderate emphysema. 5. Tiny nonspecific right middle lobe pulmonary nodule, follow-up per Fleischner criteria. 6. Other findings discussed above. Incidental single solid nodule <6 mm: Low risk: No routine follow-up. High risk: Optional CT at 12 months. Certain patients at high risk with suspicious nodule morphology, upper lobe location, or both may warrant 12- month follow-up. NOTE: These recommendations do not apply to patients with immunosuppression or patients with known primary cancer. REFERENCE: Fleischner Society 2017 Guidelines for Management of Incidentally Detected Pulmonary Nodules in Adults. Radiology 2017. Dictating Vadim Brooke Dictated 08/12/2017 20:16 Signing Vadim Lujan Location [id number] Final Transcribed by: LUISA 08/12/17 20:32 Signed by: VADIM HARPER MD 08/12/17 21:15 08/12/2017 [facility] CT Head/[place] [address] Radiology Reports CPT Code: 61230 CD Code: [id number] (CT Head/Brain WO Contrast) Reason for Exam: DIZZINESS Report EXAM: CT BRAIN WITHOUT CONTRAST INDICATION: Dizziness COMPARISON: None. TECHNIQUE: Axial 5 mm images in bone and soft tissue algorithm from foramen magnum to vertex without contrast. Up-to-date CT equipment and radiation dose reduction techniques were employed. FINDINGS: EXTRAAXIAL SPACE: Ventricles appear age appropriate and maintain midline position. No collections or mass lesion. CEREBRUM: Superficial and deep cortical structures are well formed. No focal mass, acute hemorrhage, mass effect, or midline shift. Moderate bilateral white matter rarefaction. Hypodensity suggestive of chronic lacune, body of the left caudate nucleus. CEREBELLUM: Cerebellar hemispheres and vermis are well formed without mass lesion or focal attenuation abnormality. Basal cisterns are maintained. BRAINSTEM: Midbrain, shawna, and medulla are well formed without mass or definite focal attenuation abnormality allowing for skull base artifacts. SKULL/EXTRACRANIAL STRUCTURES: Minimal mucosal thickening, left maxillary sinus. Mastoid air cells and middle ear cavity without significant disease. Pituitary fossa and orbits without definite mass. Calvarium and visualized skull base appear unremarkable. IMPRESSION: No mass, hemorrhage or CT evidence for acute infarction. Moderate bilateral white matter microangiopathic ischemic change. Chronic lacune, body of the left caudate nucleus. KASEY RICKS [id number] Dictating Dr. Cano,Nathanael Dictated 08/12/2017 17:[address] Cano, Location [id number] Final Transcribed by: ROSE 08/12/17 17:58 Signed by: ENEIDA WITT MD, GEORGE EDWIN 08/12/17 18:02 08/12/2017 [facility] XR Chest 1V [place] [address] Radiology Reports CPT Code: 52150 CDM Code: [id number] (XR Chest 1V) Reason for Exam: dizziness, weakness, syncope Report EXAM: SINGLE VIEW CHEST INDICATION: Dizziness, weakness, syncope COMPARISON: Chest x-ray, 07/11/2015. VIEWS: 1 FINDINGS: LUNGS/PLEURA: There is mild bilateral perihilar vascular congestion and pulmonary vascular redistribution with interstitial opacities. There is no airspace consolidation or pleural effusion. HEART/MEDIASTINUM: The cardiac silhouette is enlarged. Arteriosclerotic changes of the aorta are present. There is mild pulmonary venous congestion. LIFE SUPPORT LINES: None. PNEUMOTHORAX: None. OSSEOUS STRUCTURES: No acute fracture or destructive lesion. There is spondylosis of the axial skeleton. IMPRESSION: Mild CHF/interstitial edema. Dictating Lico Momin Dictated 08/12/2017 17:22 Signing Lico Hurt Location [id number] Final Transcribed by: IRA 08/12/17 17:22 Signed by: LICO BERUMEN MD 08/12/17 17:23 KASEY RICKS [id number] 08/12/2017 [facility] SP Angio Extremity [place] [address] [address] Radiology Reports CPT Code: 52558, 71933, 05767, 05736, 33352, Q9967 CDM Code: [id number] (SP Sedation Same Phy Add Each 15 Min), 6915878 (SP Intro Cath Art Abdominal 1st Ord), 0199137 (SP Angio Extremity [place]), 8577948 (SP US Vascular Access Guidance), 7795882 (SP Sedation Same Phy >5 yrs 1st 15 min), 9204114 (C Contrast Omnipaque 300/ML) Reason for Exam: claudication Addendum PROCEDURE should include: Conscous Sedation with a total monitoring time of approximately 60 minutes. FINDINGS should include: The left common femoral artery is widely patent and compressible. Vessel patency was documented and an image was sent to PACS. Addended Report 05/07/17 07:49 Signed by: MARC ALMANZAR MD 05/07/17 07:49 Report EXAM: ABDOMINAL AORTOGRAM. BILATERAL LOWER EXTREMITY ANGIOGRAM. INDICATION: Bilateral lower extremity claudication, right greater than left. Status post aortobifemoral bypass graft. COMPARISON: CT angiogram of the abdominal aorta and bilateral lower extremities dated 04/01/2017. PROCEDURE: 1. CONSCIOUS SEDATION. 2. ULTRASOUND GUIDANCE FOR ACCESS. 3. ABDOMINAL AORTOGRAM WITH BILATERAL EXTREMITY RUNOFF. DATE OF EXAMINATION: 04/12/2017 FLUORO TIME: 14 minutes RADIOLOGIST: MD RAMBO Kincaid LOUISE B [id number] MEDICATIONS: 1% local lidocaine. Intravenous Versed and fentanyl were titrated to moderate sedation. ACCESS SITE: Left common femoral artery graft. COMPLICATIONS: None. PROCEDURE: The risks, benefits and alternatives to the procedure and sedation were explained to the patient, and written informed consent obtained. The patient's heart rate, blood pressure and oxygen saturation were monitored during the procedure. The left groin was prepped and draped in sterile fashion. The left common femoral artery graft was accessed with a 21-gauge needle under ultrasound guidance. Access was documented and sent to PACS. A 0.018 wire was placed and a 5-Beninese micropuncture transition sheath was placed. The 0.018 wire was exchanged for a 0.035 Bentson wire. The microconversion catheter was exchanges for a 5-Beninese vascular sheath through which a 5-Beninese Omni Flush catheter was advanced over the wire and positioned in the abdominal aorta. Aortography was performed in AP projection using nonionic contrast. The catheter was exchanged for a 5 Beninese rim catheter. The catheter was repositioned to the right common iliac component of the bypass graft and right lower extremity angiography was performed in multiple projections. The 5 Beninese catheter was removed over a wire. Left lower extremity angiography was performed via the sheath side arm. The images were reviewed, and the sheath was removed. Hemostasis was achieved with manual compression. The patient tolerated the procedure well and was transferred from the angiographic suit in stable condition. FINDINGS: 1.Abdominal aortogram demonstrates patent aortobifemoral bypass grafts. Some faint opacification in the paimiut right common iliac artery and bilateral external iliac arteries is also noted. 2.Right lower extremity angiography demonstrates occlusion beginning at the ostium of the right superficial femoral artery. There is reconstitution of the distal SFA primarily by reflux from the popliteal artery as well as from profunda collaterals. The profunda is hypertrophic, compatible with chronic SFA occlusion. The right anterior tibial artery is occluded. Primary runoff is via the posterior tibial artery, with the peroneal artery reconstituting the distal right RHINA. 3.Left lower extremity angiography demonstrates mild to moderate multifocal SFA stenosis secondary to atherosclerotic plaque. Focal dissection with moderate stenosis in the [id number] left popliteal artery. Below-the- knee left popliteal artery is patent without significant stenosis. Two- vessel runoff in the left, with a prominent and patent left LIGHTING FIXTURES DECORATOR. Left RHINA is occluded. IMPRESSION: 1. 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 2. Mild to moderate multifocal left SFA stenosis, with focal dissection and moderate stenosis of the [id number]-oyeq left popliteal artery. 3. Occluded right RHINA with reconstitution distally from the peroneal artery. Primary runoff via the right LIGHTING FIXTURES DECORATOR. 4. Occluded left RHINA with primary runoff via the left LIGHTING FIXTURES DECORATOR. PLAN: These findings and additional treatment planning will be discussed with the referring physician. Dictating Marc Landon Dictated 04/12/2017 12:[address] Almanzar, Location: [place] [address] Report revised on 05/07/2017 7:49:08 AM EDT by MARC ALMANZAR MD Final Transcribed by: LUISA 04/13/17 17:10 Signed by: OLEG PERALTA, MARC HINOJOSA 04/13/17 17:10 04/13/2017 [facility] CT Angio Abd Aorta W Runoff WorW/WO Cont [address] [address] Radiology Reports CPT Code: 60037, Q9967 CDM Code: 2365697 (CT Angio Abdomen Aorta W Runoff), 0279651 (C Contrast Omnipaque 350/ML) Reason for Exam: I73.9 Peripheral vascular disease, unspecified Report EXAM: CTA ABDOMEN, PELVIS AND RUNOFF VESSELS INDICATION: Bilateral leg claudication and rest pain COMPARISON: Bilateral ankle-brachial indicis, 03/04/2017 TECHNIQUE: A CTA study of the abdominal aorta was performed using contiguous axial cuts obtained from the lung bases through both lower extremities following the intravenous administration of 150 mL of Omnipaque contrast. 3D MIP reformations were performed on a dedicated workstation from the axial data set. DOSAGE: Up-to-date CT equipment and radiation dose reduction techniques were employed. CTDIvol: 8.2 - 228.8 mGy. DLP: 1210 mGy-cm. NOTE: Contemporaneous contiguous exams may have combined dose reports. FINDINGS: ABDOMINAL AORTA: Measures 1.8 cm in size. Infrarenal abdominal aorta to bifemoral graft is patent. No dissection or aneurysm. MESENTERIC ARTERIES: Moderate to significant stenosis is seen in proximal superior mesenteric artery RENAL ARTERIES: Significant stenosis is seen in proximal right renal artery. Moderate to significant stenosis is seen in proximal left renal artery COMMON ILIAC ARTERIES: Occluded EXTERNAL ILIAC ARTERIES: Occluded COMMON FEMORAL ARTERIES: No significant stenosis, aneurysm, dissection or filling defect. KASEY RICKS [id number] SUPERFICIAL FEMORAL ARTERIES: Right superficial femoral arteries occluded. Diffuse disease is seen in left superficial femoral artery with areas of critical stenosis POPLITEAL ARTERIES: Diffuse calcific disease is seen in bilateral popliteal arteries with areas of moderate stenosis ANTERIOR TIBIAL ARTERIES: Bilateral anterior tibial arteries are occluded POSTERIOR TIBIAL ARTERIES: No significant stenosis, aneurysm, dissection or filling defect. PERONEAL ARTERIES: No significant stenosis, aneurysm, dissection or filling defect. LUNG BASES: Clear. LIVER: No mass. No intrahepatic biliary dilatation. GALLBLADDER: No wall thickening. No stones. COMMON BILE DUCT: Normal caliber. No stones. SPLEEN: Within normal limits. PANCREAS: No mass. No pancreatic fluid collections. ADRENALS: No masses. KIDNEYS: Subcentimeter hypodense lesion is seen in left kidney, probably represent cysts. No hydronephrosis. LYMPH NODES: No adenopathy. STOMACH, SMALL BOWEL AND COLON: Small hiatal hernia. Distal esophageal wall thickening and adjacent gastroesophageal junction thickening, clinical correlation is advised. PERITONEAL CAVITY: No mesenteric stranding or free fluid. OSSEOUS STRUCTURES: No acute fracture or destructive lesion. PELVIC ORGANS: Normal. SOFT TISSUES: No focal mass. IMPRESSION: 1. Infrarenal aorto common femoral graft is patent 2. Consider moderate to significant stenosis in proximal superior mesenteric artery 3. Consider significant stenosis in right renal artery and moderate to significant stenosis in proximal left renal artery 4. Right superficial femoral arteries occluded 5. Diffuse disease is seen in left superficial femoral artery with areas of critical stenosis 6. Diffuse calcific disease is seen in bilateral popliteal arteries with areas of moderate stenosis 7. Bilateral anterior tibial arteries are occluded 8. Mild to moderate degree of distal esophageal wall and gastroesophageal junction thickening is seen, clinical correlation is advised Dictating Eric Guzman Dictated 04/01/2017 14:[address] Alvarado, Location: [place] [address] Final Transcribed by: GENEVIEVE 04/01/17 14:36 Signed by: ERIC ALVARADO MD 04/01/17 14:36 04/01/2017 [facility] US Arterial Doppler [place] [address] Radiology Reports CPT Code: 05698 CDM Code: [id number] (US Arterial Doppler Ext [place] Single Level) Reason for Exam: I73.9 Peripheral vascular disease, unspecified Report EXAM: Bilateral ankle-brachial indicis INDICATION: Bilateral wrist pain COMPARISON: None TECHNIQUE: Pressure readings and Doppler tracing of the brachial artery and lower extremity arteries. FINDINGS: mm/Hg; Right: Brachial = 210 Posterior tibial = 111 Dorsalis pedis = 79 Ankle-brachial index = 0.51 Left: Brachial = 217 Posterior tibial = 179 Dorsalis pedis = 188 Ankle-brachial brachial index = 0.87 IMPRESSION: 1. Right ankle-brachial index is 0.51, suggestive of significant arterial occlusive disease, left ankle-brachial index is 0.87, suggestive of mild arterial occlusive disease, further evaluation with CT or MR angiogram would be useful LUANNE values: above 1.2 = Abnormal Vessel hardening from PVD 1.0 - 1.2 Normal range 0.9 - 1.0 Acceptable 0.8 - 0.9 Some arterial disease 0.5 - 0.8 Moderate arterial disease KASEY RICKS [id number] under 0.5 Severe arterial disease Dictating Eric Guzman Dictated 03/04/2017 12:[address] Alvarado, Location: [place] [address] Final Transcribed by: GENEVIEVE 03/04/17 12:45 Signed by: ERIC ALVARADO MD 03/04/17 12:45 03/04/2017 [facility] XR Chest 2V [address] [address] Radiology Reports CPT Code: 45332 CDM Code: [id number] (XR Chest 2V) Reason for Exam: ABNORMAL FINDING OF LUNG FIELD Report EXAM: TWO-VIEW CHEST INDICATION: Abnormal findings COMPARISON: 04/22/2015. VIEWS: 2 FINDINGS: LUNGS/PLEURA: Clear. No effusions. HEART/MEDIASTINUM: No cardiomegaly. No mediastinal or hilar mass. LIFE SUPPORT LINES: None. PNEUMOTHORAX: None. OSSEOUS STRUCTURES: No fracture or destructive lesion. IMPRESSION: No active disease. No nodular lesions identified. Location: [place] [address] Final Dictated by: MEAGHAN GRADY MD Signed by: MEAGHAN GRADY MD 07/11/15 14:24 Pick Up And Delivery Driver: ZELALEM 07/11/15 14:24 KASEY RICKS [id number] 07/11/2015 [facility] XR Chest 2V [address] [address] Radiology Reports CPT Code: 18102 CDM Code: 1969888 (XR Chest 2V) Reason for Exam: EMPYEMA WITH EVACUATION OF PAIN IN CHEST Report EXAM: TWO-VIEW CHEST INDICATION: Empyema, chest pain COMPARISON: None VIEWS: 2 FINDINGS: LUNGS/PLEURA: Nodularity in the right upper lobe No effusions. HEART/MEDIASTINUM: No cardiomegaly. Aortic atherosclerosis LIFE SUPPORT LINES: None. PNEUMOTHORAX: None. OSSEOUS STRUCTURES: Lucency involving lateral right fourth, fifth and sixth ribs IMPRESSION: 1. Right lung nodularity, compare with prior films or correlate with CT 2. Right rib lucencies, consider dedicated rib evaluation for CT to exclude lytic process Location: [id number] Final Dictated by: TERESA ESTRELLA MD Signed by: TERESA ESTRELLA MD 04/22/15 16:22 Pick Up And Delivery Driver: SARIAH 04/22/15 16:22 KASEY RICKS [id number] 04/22/2015 [facility] Consultation Notes Results Value Date Source Emergency Room Record [place] [id number] Addendum by INOCENCIO ROSA MD on January 28, 2020 15:18 EDT I have provided a [id number] evaluation of the patient and agree with the documented history, physical examination, assessment and plan of care. A portion of the exam was performed by me. All medical decsion-making was done by me. Patient presents after a fall Physical exam shows some left chest wall tenderness X-ray shows 2 rib fractures DC home [Electronically Signed By:] INOCENCIO TRACEY MD On, 01/28/2020 03:18 PM Fall Patient: KASEY RICKS Age: 75 years Sex: Female : 1945 Associated Diagnoses: None Author: ELIZABETH ALEXIS PA-C Basic Information Time seen: Provider First contact date and time Provider Contact Date and Time Provider 01/27/2020 20:20 ELIZABETH ALEXIS PA-C . History source: Patient, spouse. Arrival mode: Private vehicle, walking. History limitation: None. History of Present Illness The patient presents following fall. The onset was This afternoon . The occurrence was single episode. The fall was described as slipped. The location where the incident occurred was at home. Location: Head, left lateral ribs . The character of symptoms is pain. The degree at present is minimal. The exacerbating factor is none. The relieving factor is none. Therapy today: none. Preceding symptoms none. Associated symptoms: none. 75-year-old female presents emergency department after mechanical fall in the bathtub earlier this afternoon. Patient fell onto her left lateral rib cage and then hit the back of her head. Patient takes aspirin and Plavix but is otherwise not anticoagulated. Patient denies LOC. Patient denies headache and complains only of left rib pain. Patient states she felt greater than 1 year ago outside a restaurant hit her head that she has had multiple falls since. She states she has underwent physical therapy. at bedside reports patient is her baseline mental status for the last year. She has been following with Neurology . . Review of Systems Constitutional symptoms: Negative except as documented in HPI. Skin symptoms: Negative except as documented in HPI. Eye symptoms: Negative except as documented in HPI. ENMT symptoms: Negative except as documented in HPI. Respiratory symptoms: Negative except as documented in HPI. Cardiovascular symptoms: Negative except as documented in HPI. Genitourinary symptoms: Negative except as documented in HPI. Musculoskeletal symptoms: Negative except as documented in HPI. Neurologic symptoms: Negative except as documented in HPI. Psychiatric symptoms: Negative except as documented in HPI. Additional review of systems information: All other systems reviewed and otherwise negative. Health Status Allergies: Allergic Reactions (All) Severe Lidocaine- Non-therapeutic response to medications. Severity Not Documented Tylenol- No reactions were documented. Canceled/Inactive Reactions (All) NKA. Medications: (Selected) Documented Medications Documented Metoprolol Tartrate 50 mg oral tablet: 1 TAB, PO, BID (2 times a day), 0 Refill(s) amLODIPine 10 mg oral tablet: 1 TAB, PO, Daily, 0 Refill(s), Indication: High Blood Pressure aspirin 81 mg oral delayed release tablet: 1 TAB, PO, Daily, 0 Refill(s) atorvastatin 10 mg oral tablet: 1 TAB, PO, Daily, 0 Refill(s) cilostazol 100 mg oral tablet: = 1 TAB, PO, BID (2 times a day), 0 Refill(s), Indication: Unknown clopidogrel 75 mg oral tablet: 1 TAB, PO, Daily, 0 Refill(s), Indication: Clot Prevention glipiZIDE 5 mg oral tablet: 1 TAB, PO, BID (2 times a day), 0 Refill(s), Indication: Diabetes hydroCHLOROthiazide 12.5 mg oral capsule: 1 CAP, PO, Daily, 0 Refill(s), Indication: High Blood Pressure levothyroxine 125 mcg (0.125 mg) oral capsule: See Instructions, 0 Refill(s), 1 CAP PO Daily, Indication: Thyroid Disorder lisinopril 20 mg oral tablet: 1 TAB, PO, Daily, 0 Refill(s), Indication: High Blood Pressure nitroglycerin 0.4 mg sublingual tablet: 1 TAB, Sublingual, Q5MIN (Every 5 minutes), PRN chest pain, 0 Refill(s) pantoprazole 40 mg oral delayed release tablet: 1 TAB, PO, Daily, 0 Refill(s), Indication: Reflux. Past Medical/ Family/ Social History Medical history HEALTH HISTORY Aortic Patient Appendectomy Patient Cataract surgery Patient Colonoscopy Patient Diabetes mellitus type II Patient Ex-cigarette smoker Patient Hyperlipidemia Patient Hypertension Patient Hypothyroidism Patient Lung Patient Peripheral vascular disease Patient Pneumonia... Patient TIA Patient Thoracotomy Patient . Surgical history: Reviewed as documented in chart. Reviewed as documented in chart. Social history: Physical Examination General: Alert, no acute distress. Vital Signs VITALS: BP: 152 / 87 Pulse: 72 Temp: 97.9 Resp Rate: 16 Tmax: 97.9 Wt(kg): 64 Pain Score: O2 Sat: 99 01/27/20 20:13 O2 Status: Room air 21% . Skin: Warm, dry, pink, normal for ethnicity. Head: Normocephalic, atraumatic. Neck: Supple, trachea midline, no tenderness, full range of motion. Eye: Extraocular movements are intact, normal conjunctiva. Ears, nose, mouth and throat: Oral mucosa moist. Respiratory: Respirations are non-labored. Cardiovascular: Normal peripheral perfusion, Lower extremity pulses: 2+. Musculoskeletal: No deformity. Chest wall: On exam: Left, lateral, tenderness, reproduces complaint, no crepitus. Back: Nontender, Normal range of motion, Normal alignment, no step-offs. Neurological: Alert and oriented to person, place, time, and situation. Psychiatric: Cooperative. Gastrointestinal: Non distended. Medical Decision Making Orders Launch Orders Radiology: XR Ribs 3V LT - Include PA Chest (Order Processing): 01/27/2020 20:26 EDT Stat, Reason: fall, Transport Mode: Ambulatory ? Not applicable, IV? Yes, O2? No, Standard Precautions, Written CT Head/Brain WO Contrast (Order Processing): 01/27/2020 20:26 EDT Stat, Reason: fall, ? Not applicable, Transport Mode: Ambulatory, IV? Yes, O2? No, Standard Precautions, Written. Radiology results: COMPLETED RADIOLOGY IMAGING STUDIES: XR Ribs 3V LT - Include PA Melvi [Auth (Verified)] (01/27 2128): FINAL IMPRESSION: Acute fractures left ribs 4-5.No pneumothorax.Dictating Leela Vanegasctated 01/27/2020 21:27Signing Dr. Solares,Location: [facility] CT Head/Brain WO Contrast [Auth (Verified)] (01/26 2057): FINAL IMPRESSION:Changes of advancing chronological age and chronic ischemic changes. No evidence of an acute intracranial abnormality.Dictating Thomas Vigilctated 01/27/2020 20:51Signing Dr. Szymanski,Location: [facility] . Notes: Discussed results with the patient and my attending physician. . Reexamination/ Reevaluation Vital signs Vital signs from flowsheet 01/27/2020 21:30 EDT Vital Signs Status/Type Routine Assessment Heart Rate 78 bpm Inet NIBP Systolic 174 mmHg Inet NIBP Diastolic 88 mmHg NIBP MAP 180 mmHg NIBP MAP Calc 117 mmHg 01/27/2020 21:00 EDT Vital Signs Status/Type Routine Assessment Heart Rate 66 bpm Inet NIBP Systolic 170 mmHg Inet NIBP Diastolic 64 mmHg NIBP MAP 101 mmHg NIBP MAP Calc 99 mmHg 01/27/2020 20:13 EDT Temperature 97.9 DegF Temp Method Oral Heart Rate 72 bpm Respiratory Rate 16 br/min Inet NIBP Systolic 152 mmHg Inet NIBP Diastolic 87 mmHg Course: improving, progressing as expected. Pain status: unchanged. Assessment: exam unchanged. Interventions: Order Profile (Selected) Inpatient Orders Ordered Discharge (CPOE): 01/27/20 21:41:00 EDT, 01/27/20 21:41:00 EDT Incentive Spirometry: 01/27/20 21:36:00 EDT, 01/27/20 21:36:00 EDT Initiate Fall Precautions: 01/27/20 21:07:16 EDT, 01/27/20 21:07:16 EDT, [facility] Fall Precautions Completed CT Head/Brain WO Contrast: 01/27/20 20:26:00 EDT Stat, Reason: fall, ? Not applicable, Transport Mode: Ambulatory, IV? Yes, O2? No, Standard Precautions, Written Height to Glucommander: 01/27/20 20:17:04 EDT, 01/27/20 20:17:04 EDT Height to Glucommander: 01/27/20 21:07:16 EDT, 01/27/20 21:07:16 EDT Weight to Glucommander: 01/27/20 20:17:04 EDT, 01/27/20 20:17:04 EDT Weight to Glucommander: 01/27/20 21:07:17 EDT, 01/27/20 21:07:17 EDT XR Ribs 3V LT - Include PA Chest: 01/27/20 20:26:00 EDT Stat, Reason: fall, ? Not applicable Transport Mode: Ambulatory, IV? Yes, O2? No, Standard Precautions, Written Prescriptions Prescribed [facility] 5 mg-325 mg oral tablet: 1 TAB, PO, Q6H (Every 6 hours), PRN as needed for pain, x 3 day, # 10 TAB, 0 Refill(s), Indication: Breakthrough Pain, FOR ACUTE PAIN, Discussed with pt workup here in the ED. Comfortable with discharge. Advised to follow up with PMD in 2 days and return for worsening condition,. . Impression and Plan Diagnosis Closed head injury - PTG99-LF S09.90XA Fracture of two ribs of left side - DRF99-OZ S22.42XA Plan Condition: Stable. Prescriptions: Launch prescriptions Pharmacy: [facility] 5 mg-325 mg oral tablet (Prescribe): 1 TAB, PO, Q6H (Every 6 hours), PRN as needed for pain, x 3 day, # 10 TAB, 0 Refill(s), Indication: Breakthrough Pain, FOR ACUTE PAIN, 01/27/2020 21:40 EDT. Patient was given the following educational materials: Rib Fracture, Rib Fracture. Follow up with: LEVI SUGGS Within 1-2 days. Disposition: Discharged: Launch Orders Patient Care: Discharge (CPOE) (Order Processing): 01/27/2020 21:41 EDT. Counseled: Patient, Regarding diagnosis, Regarding diagnostic results, Regarding treatment plan, Regarding prescription, Patient indicated understanding of instructions. Notes: IS given. Stable for DC. . [Electronically Signed By:] PA-C ELIZABETH ALEXIS PA-C On, 01/27/2020 09:42 PM 01/27/2020 [facility] Procedure Report [address] [address]- PROC - Procedure Report ESO DOCUMENT NAME: Procedure Report SERVICE DATE/TIME: 04/27/2019 13:21 EDT RESULT STATUS: Auth (Verified) PERFORM INFORMATION: ERIC ALVARADO MD (04/27/2019 13:22 EDT) SIGN INFORMATION: ERIC ALVARADO MD (04/27/2019 13:22 EDT) Procedure Note [facility] Patient: KASEY RICKS Age: 74 years Sex: Female : 1945 Associated Diagnoses: None Author: ERIC ALVARADO MD Operative Information Date of Procedure : 04/27/2019. Pre-op Diagnosis : LLE CLAUDICATION . Procedure : 1. LLE ANGIO, ATHERECTOMY,LIGHTING FIXTURES DECORATOR OF SFA,POPLITEAL ARTERY AND PLACEMENT OF 5X60 MM SELF EXPANDING STENT IN PROXIMAL SFA . Surgeon(s) : ERIC ALVARADO MD Anesthesia : General, Local. [Electronically Signed By:] ERIC CLARK MD On, 04/27/2019 01:22 PM 04/27/2019 [facility] PT Evaluation %%START C PT [id number] PTIE [id number] %% Physical Therapy Initial Evaluation / Examination Patient Name: KASEY RICKS Date of : 1945 Date of Service: 12/21/2018 01:50 PM Treating Therapist: Levi Wood, DPT, CSCS, CKTP, CLT Provider: [facility] Main OP Provider #: SOC Date: 12/21/2018 -- Patient Information -- [address]: [address] [place] [address], Zip: [place], [place], [address] Occupation: Unknown Gender: Female Carpenter Inspector: VÍCTOR RAMBO Referring Physician Name: LEVI SUGGS Referring Physician Number: # of Authorized Visits: 0 Medicaid #: Medicare #: [id number] -- Primary Diagnosis -- Description: 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 Code: G83.11 Onset Date: 12/14/2018 -- Rehabilitation Information / History -- Preferred Practice Pattern: Neuromuscular A: Primary prevention/risk factor reduction for loss of balance and falling Prior Functional Status: Mild pain or limitation in ambulation, work, IADL's or recreation Rehabilitative Prognosis: Good rehab potential to reach the established goals Mental Status: Alert and oriented in all spheres - cooperative and motivated Reason for Referral/Concerns that led patient to Physical Therapy: Decreased function in specific instrumental activities of daily living Systems Review, History: The pt is a 73 y.o. female with complaints of decreased balance and right leg weakness that began after she fells and fractured her ankle back in July of 2018. She reports having right ankle ORIF surgery also in July of 2018 and says that during her recovery she spent 8-9 weeks on her couch not doing anything. She reports having several months of home PT which ended at the end of October but says that she didn't feel like she was doing much in the home therapy sessions. She reports that her right ankle still bothers her but reports that the orthopedic MD told her that everything looked good %%PAGE with her hardware. She reports having a fall approximately two weeks ago at home in which she lost her balance . Prior to this she reports stepping out of her front door in September and falling. She reports that she uses a rolling walker around her home sometimes but "holds onto her when going outside her home". She reports that her legs get tired quickly when walking and she must sit down. Her goal is to improve her balance and strength to allow her to be able to perform household cleaning ADL's. Known Significant Past Medical Diagnosis and Conditions: PMH includes Hypertension, thyroid disease, Type II DM, OA, history of right ankle ORIF, history of right upper thigh arterial bypass surgery, Medication List: See scanned list -- Functional Measures -- Ambulation: Even Terrain Comments: The pt demonstrates ataxic gait and presented to the clinic without any AD; a shuffling gait pattern is used with decreased heel strike -- Goals -- Functional Characteristics and Analysis: Mrs. Ricks presents to Physical Therapy with decreased overall balance and decreased lower extremity strength that is causing increased difficulty with gait and functional ADL's. The pt would benefit from Physical Therapy to improve the above impairments to allow for improved balance and increased lower extremity strength. -- Impairment Goals; Short Term -- 1. The pt will be I with initial HEP to allow for improved household cleaning tolerance in 6 weeks -- Functional Goals; Alf -- 1. The pt will be I with final HEP to al low for improved walking tolerance with increased safety in 12 weeks 2. Increase Greenfield balance score by 15 poi nt to allow for decreased fall risk in 12 weeks 3. Increase lower extremity strength to previously listed measurements to improve walking tolerance in 12 weeks -- Functional Limitation Reporting -- -- Mobility: Walking and Moving Around - - G8978 - Mobility: walking and moving around functional limitation, current status, at therapy episode outset and at reporting intervals Current Status: CL - At least 60 percent but less than 80 percent impaired, limited or restricted G8979 - Mobility: walking and moving around functional limitation, projected goal status, at therapy episode outset, at reporting intervals, and at discharge or to end reporting Goal Status: CI - At least 1 percent but less than 20 percent impaired, limited or restricted Functional Limitation Reporting Comments: In my professional judgment, and based on the patient?s therapy evaluation, I am reporting Functional Limitation Reporting category G8978. Severity modifiers were determined by my clinical judgment and use of the Greenfield and LEFS. -- Physical Findings -- -- Vital Signs -- Status: At Rest; Position: SittingOxygen Saturation: 93%; Heart Rate: 70 BPM; Blood Pressure: 170/60 %%PAGE -- Pain -- Additional Comments on Pain: The pt reports 5/10 pain in the right ankle at this time. Lower Extremity Functional Scale Score: 20/80 -- Specific Joints -- -- Hip Flexion Initial -- Strength Right/Left: 3+/4- Active ROM Right/Left: / Passive ROM Right/Left: / -- Hip Flexion Goal -- Strength Right/Left: 4/4 Active ROM Right/Left: / Passive ROM Right/Left: / -- Hip Abduction Initial -- Strength Right/Left: 4-/4- Active ROM Right/Left: / Passive ROM Right/Left: / -- Hip Abduction Goal -- Strength Right/Left: 4/4 Active ROM Right/Left: / Passive ROM Right/Left: / -- Hip Adduction Initial -- Strength Right/Left: 4-/4- Active ROM Right/Left: / Passive ROM Right/Left: / -- Hip Adduction Goal -- Strength Right/Left: 4/4 Active ROM Right/Left: / Passive ROM Right/Left: / -- Knee Flexion Initial -- Strength Right/Left: 3+/4- Active ROM Right/Left: / Passive ROM Right/Left: / -- Knee Flexion Goal -- Strength Right/Left: 4/4 Active ROM Right/Left: / Passive ROM Right/Left: / -- Knee Extension Initial -- Strength Right/Left: 3+/4- Active ROM Right/Left: / Passive ROM Right/Left: / -- Knee Extension Goal -- Strength Right/Left: 4/4 Active ROM Right/Left: / Passive ROM Right/Left: / -- Ankle Dorsiflexion Initial -- Strength Right/Left: 3+/4- Active ROM Right/Left: / Passive ROM Right/Left: / -- Ankle Dorsiflexion Goal -- Strength Right/Left: 4/4 Active ROM Right/Left: / Passive ROM Right/Left: / -- Ankle Plantar Flexion Initial -- Strength Right/Left: 4/4 Active ROM Right/Left: / Passive ROM Right/Left: / -- Ankle Plantar Flexion Goal -- Strength Right/Left: 4/4 Active ROM Right/Left: / Passive ROM Right/Left: / -- Ankle Inversion Initial -- Strength Right/Left: 3+/4 Active ROM Right/Left: / Passive ROM Right/Left: / -- Ankle Inversion Goal -- %%PAGE Strength Right/Left: 4/4 Active ROM Right/Left: / Passive ROM Right/Left: / -- Ankle Eversion Initial -- Strength Right/Left: 3+/4 Active ROM Right/Left: / Passive ROM Right/Left: / -- Ankle Eversion Goal -- Strength Right/Left: 4/4 Active ROM Right/Left: / Passive ROM Right/Left: / -- Coordination, Balance, Gait -- Greenfield Balance Scale: 34 -- Interventions/Plan -- *PT-PHY THPY EVAL LOW COMPLEXITY (2017) 00719 PT-BALANCE and COORD EA 15M 79962 PT-GAIT TRAINING EA 15M 89030 PT-MANUAL THPY EA 15M 13740 PT-SELF/HOME TRAIN EA 15M 86432 PT-THER EXERCISE EA 15M 72190 Frequency of PT: Two times weekly Duration of PT: 12 weeks Signed: Levi Wood, DPT, CSCS, CKTP, CLT State License #: [id number] Date/Time Signed: 12/22/2018 4:17:54 PM %%End 12/21/2018 [facility] Operative Report DATE: 2017 SURGEON: TODD DIAZ MD PREOPERATIVE DIAGNOSIS: Severe incapacitating right leg claudication. Also, the patient has a recent ankle fracture, now for surgery. FINDINGS: The patient had prior aortobifemoral requiring careful dissection in the right groin. We sewed the graft to the maya of the old aortobifemoral graft and then to the above-knee popliteal. Post procedure, the patient had a palpable pulse. PROCEDURE: 1. Right femoral-popliteal bypass usi ng 6 mm PTFE from the maya of the right aortobifemoral graft down to the above-knee popliteal. 2. Redo groin. The patient has statu s post aortobifemoral graft. MOTORCYCLE MECHANIC: Ysabel Majano. DESCRIPTION OF PROCEDURE: The patient was brought to the operating room, placed in supine position. General endotracheal anesthesia induced without complication. Shore catheter inserted. Preoperative antibiotics administered. A radial arterial line placed. The patient was prepped and draped in standard fashion. Incisions were made in the groin. The maya of the aortobifemoral graft on the common femoral artery was exposed with fair bit of scar tissue. Once this is completed, we made an incision above the knee exposed the above-knee popliteal. There was some disease in it, but we felt we could have an adequate lumen. We created the tunnel and then heparinized the patient. We brought a 6 mm PTFE graft into the tunnel. We then got obtained proximal distal control on the above-knee popliteal, opened the vessel. It was a good vessel. We sewed the graft end-to-side running 7-0 Prolene. Approximately we got proximal and distal control and then opened the maya of the old aortobifemoral graft. We placed the graft to the maya with running 6-0 Prolene. The clamps were removed. Protamine was administered. Post procedure, the patient had a bounding signal distal to the anastomosis in the popliteal. Protamine was administered. Hemostasis obtained wound irrigated and closed with running Vicryl suture on the subcu subcutaneous tissues and metal clips on the skin. The patient tolerated the procedure well and was transferred back to the unit in stable condition. Of note is that we were very careful in handling her ankle since she had a recent ankle fracture. [facility]/[id number]/MODL /[id number] 08/14/2018 [facility] Operative Report Date of Surge ry 08/13/18 Preoperative Diagnosis Displaced right bimalleolar ankle fracture Postoperative Diagnosis Displaced right bimalleolar ankle fracture Procedure Performed Open reduction internal fixation right bimalleolar ankle fracture Type of Anesthesia General Indications This 73-year-old female injured her right ankle 10 days ago with a fall. She has been evaluated in [place]. Consideration was for surgical management however the patient was awaiting peripheral vascular bypass surgery. She underwent this procedure yesterday. Orthopedic consultation was requested and an x-ray today revealed displacement of the fracture. Given the alternatives to treatment the patient wished to have the procedure completed during this hospitalization. Surgeon Benito Michaud MD Manager Architectural(s) Lauren Godoy PA-C (Ashley ) The surgical procedure was assisted by my physician lead recreation assistant. Her presence was necessary throughout the case for manipulation and positioning of the surgical extremity. My PA was assisting me throughout the duration of this procedure. The skill set of the physician lead recreation assistant was medically necessary to complete this procedure. During the surgical case the echocardiography radiology technologist was working at the back table and the physician lead recreation assistant was directly assisting me. Findings As above Unanticipated Events/Complications None Specimen(s) None Technique/Description of Procedure Patient was taken to the operative suite and after undergoing adequate level of general anesthesia was kept supine on the operating table. Preoperative antibiotics consisted of Ancef 2 g IV. The right lower extremity was prepped and draped in usual sterile fashion with alcohol, Hibiclens and ChloraPrep. A tourniquet was placed below the knee away from the bypass site. It was inflated however was not working adequately and therefore not used. A longitudinal incision was made along the lateral aspect of the fibula. This was carried down through skin and subcutaneous tissue with a knife. Hemostasis was obtained electrocautery. The lateral cortex of the bone was identified and subperiosteal dissection carried out exposing the fracture site. Fracture site was cleared of any fracture hematoma. A Synthes locking plate was then applied to the lateral aspect. The position was checked with the C-arm. Proximal cortical fixation was accomplished followed by interlocking screws distally. The position was checked in both the AP and lateral planes with the C-arm. Attention was then focused on the medial aspect where a small curvilinear incision was made distal to the tip of the medial malleolus. This was carried down through skin and subcutaneous tissue with a knife. Small veins were cauterized. The distal medial malleolar fragment was reduced and held with a reduction clamp. Two threaded guide pins were then placed from distal to proximal. The proximal cortex was then overdrilled and 24.0 cannulated screws seated. The distal fragment was quite small. The position of the fracture reduction and placement of the internal fixation were checked in both the AP and lateral planes with the C-arm. The wounds were thoroughly irrigated. The lateral incision was closed in layers utilizing 0 Vicryl suture on the muscular fascia, 2-0 Vicryl suture on the subcutaneous tissue and 3-0O nylon on the skin. The medial incision was closed with nylon. Sterile dressings were applied, the patient was placed into a splint, awakened, transferred to the hospital bed and taken to the recovery room in stable condition. Implants and Devices Synthes Estimated Blood Loss 50 cc Patient Condition/Disposition Stable to PACU 08/13/2018 [facility] Emergency Room Record [facility] [place] [address] [address]- ER RPT - Emergency Room Record ESO DOCUMENT NAME: Emergency Room Record SERVICE DATE/TIME: 08/03/2018 20:11 EDT RESULT STATUS: Auth (Verified) PERFORM INFORMATION: YSABEL TORRES MD (08/03/2018 20:19 EDT) SIGN INFORMATION: YSABEL TORRES MD (08/03/2018 22:15 EDT) Fall Patient: KASEY RICKS Age: 73 years Sex: Female : 1945 Associated Diagnoses: None Author: YSABEL TORRES MD Basic Information Time seen: Provider First contact date and time Provider Contact Date and Time Provider 08/03/2018 18:42 YSABEL TORRES MD . History source: Patient. Arrival mode: Mode of Arrival.: Ambulance (08/03/18 18:37:00) . History limitation: None. Additional information: Primary Care Physician ES PERALTA, LEVI MILLER , Chief Complaint from Nursing Triage Note 08/03/2018 18:37 EDT Chief Complaint Chief Complaint (Modified) 08/02/2018 11:37 EDT Chief Complaint pain right leg . History of Present Illness Patient is a 73-year-old female on Plavix with peripheral vascular disease, presenting today secondary to a fall. She states that she was eating dinner at a restaurant and had a slip and fall walking out. She did hit her head but she did not lose consciousness. She is having pain mostly in her right ankle. She states she has had taking Plavix for the past 3 days secondary to her preparing for vascular surgery this week by Dr. Diaz at [facility]. Patient states she was in her normal state of health prior to this event. She does not drink alcohol or use drugs. . Review of Systems Constitutional symptoms: Negative except as documented in HPI. Skin symptoms: Negative except as documented in HPI. Eye symptoms: Negative except as documented in HPI. ENMT symptoms: Negative except as documented in HPI. Respiratory symptoms: Negative except as documented in HPI. Cardiovascular symptoms: Negative except as documented in HPI. Gastrointestinal symptoms: Negative except as documented in HPI. Genitourinary symptoms: Negative except as documented in HPI. Musculoskeletal symptoms: Negative except as documented in HPI. Neurologic symptoms: Negative except as documented in HPI. Allergy/immunologic symptoms: Negative except as documented in HPI. Health Status Allergies: Allergic Reactions (Selected) Severe Lidocaine- Non-therapeutic response to medications. . Past Medical/ Family/ Social History Medical history [address] [place] [id number] ER RPT - Emergency Room Record ESO Reviewed as documented in chart. HEALTH HISTORY Aortic Patient Appendectomy Patient Cataract surgery Patient Colonoscopy Patient Diabetes mellitus type II Patient Ex-cigarette smoker Patient Hyperlipidemia Patient Hypertension Patient Hypothyroidism Patient Lung Patient Peripheral vascular disease Patient Pneumonia... Patient TIA Patient Thoracotomy Patient . Family history: non contributory . Social history: Alcohol use: Denies, Tobacco use: Denies, Drug use: Denies. Physical Examination Vital Signs Vital Signs 08/03/2018 19:00 EDT Heart Rate 99 bpm Respiratory Rate 18 br/min Inet NIBP Systolic 176 mmHg Inet NIBP Diastolic 56 mmHg NIBP MAP 89 mmHg NIBP MAP Calc 96 08/03/2018 18:37 EDT Temperature 98.1 DegF Temp Method Oral Heart Rate 88 bpm Respiratory Rate 18 br/min Inet NIBP Systolic 180 mmHg Inet NIBP Diastolic 60 mmHg NIBP MAP Calc 100 08/03/2018 18:00 EDT Temperature 98.1 DegF Temp Method Oral . Measurements 08/03/2018 19:29 EDT Clinical Height 165 cm Height Method Estimated Clinical Weight 70 kg Weight Method Estimated BMI 25.71 BSA 1.79 m2 08/03/2018 18:37 EDT Clinical Weight 0 kg Weight Method Estimated 08/02/2018 12:13 EDT Clinical Height 159 cm Height Method Stated 08/02/2018 11:37 EDT Clinical Height 159 cm Height Method Stated . Oxygen Saturation 08/03/2018 19:00 EDT Oxygen Saturation 100 % 08/03/2018 18:37 EDT Oxygen Saturation 97 % 08/02/2018 12:13 EDT Oxygen Saturation 98 % . General: Alert, no acute distress. Skin: Warm, dry. Head: Normocephalic, atraumatic. Eye: Vision grossly normal, pupils equal and round . [address] [place] [address]- ER RPT - Emergency Room Record ESO Ears, nose, mouth and throat: Oral mucosa moist, no pharyngeal erythema or exudate. Cardiovascular: Regular rate and rhythm, No murmur. Respiratory: Lungs are clear to auscultation, respirations are non-labored, breath sounds are equal, Symmetrical chest wall expansion. Gastrointestinal: Soft, Nontender, Non distended. Musculoskeletal: ttp lateral distal fibula with edema, mild ttp of R hip, stable pelvis . Neurological: No focal neurological deficit observed, normal speech observed. Psychiatric: Cooperative, appropriate mood and affect. Medical Decision Making Differential Diagnosis: Fall, abrasion, sprain, strain, closed fracture. Results review: Lab results : Laboratory 08/03/2018 19:11 EDT WBC 5.4 x10'3/microL RBC 4.01 million/microL LOW Hgb 11.4 g/dL LOW Hct 36.0 % LOW Platelet 271 x10'3/microL MCV 89.8 fL MCH 28.4 pg MCHC 31.7 g/dL LOW RDW 12.4 % MPV 10.6 fL HI Neutrophils 58.6 % Lymphs 30.7 % Monocytes % 7.1 % Eosinophil % 2.8 % Basophil % 0.4 % Neutro Absolute 3.1 x10'3/microL Lymph Absolute 1.6 x10'3/microL Bollinger Absolute 0.4 x10'3/microL Eos Absolute 0.15 x10'3/microL Basophil Absolute 0.02 x10'3/microL Immature Granulocytes Abs 0.02 x10'3/microL Immature Granulocytes % 0.4 % Sodium 136 mmol/L Potassium 4.3 mmol/L Chloride 100 mmol/L LOW CO2 23 mmol/L AGAP 13.0 Glucose 335 mg/dL HI BUN 39 mg/dL HI Creatinine 0.90 mg/dL Calcium 10.1 mg/dL Est CrCl (CG) 48.5 mL/min GFR (CKD-EPI) 62.8 mL/min/1.73 m2 NA Magnesium 1.3 mg/dL LOW 08/02/2018 11:26 EDT WBC 5.9 x10'3/microL RBC 4.08 x10'6/microL Hgb 11.7 g/dL Hct 36.8 % Platelet 252 x10'3/microL MCV 90.2 fL MCH 28.7 pg MCHC 31.8 g/dL RDW 41.1 fL MPV 10.4 fL Abs NRBCs 0.00 x10'3/microL Neutrophils 62.7 % [address] [place] [address]- ER RPT - Emergency Room Record ESO Lymphs 26.8 % Monocytes % 7.3 % Eosinophil % 2.4 % Basophil % 0.5 % Neutro Absolute 3.7 x10'3/microL Lymph Absolute 1.6 x10'3/microL Bollinger Absolute 0.4 x10'3/microL Eos Absolute 0.1 x10'3/microL Basophil Absolute 0.0 x10'3/microL Immature Granulocytes Abs 0.02 x10'3/microL Immature Granulocytes % 0.3 % NRBC 0.0 /100WBC PT 14.1 second INR 1.1 NA PTT 30.7 second Pt on P2Y12? No PRU 226 Unit NA Sodium 141 mmol/L Potassium 4.0 mmol/L Chloride 103 mmol/L CO2 21 mmol/L LOW AGAP 17 Glucose 317 mg/dL HI BUN 34 mg/dL HI Creatinine 0.87 mg/dL Calcium 10.3 mg/dL HI Est CrCl (CG) 45.4 mL/min GFR (CKD-EPI) 65.4 mL/min/1.73 m2 NA Albumin Level 4.2 g/dL Total Protein 6.9 g/dL Magnesium 1.4 mg/dL LOW Alk Phos 87 Units/L AST 14 Units/L ALT(SGPT) 24 Units/L Bili Total 0.4 mg/dL UA Color Light-Yellow UA Appear Clear UA pH 5.0 UA Spec Grav 1.014 UA Glucose 3+ UA Bili Negative UA Ketones Negative UA Blood Negative UA Protein 1+ UA Nitrite Negative UA Leuk Est Negative UA Spec Type Clean Catch UA WBC 1 /hpf UA RBC 1 /hpf UA Mucous Trace UA Hyaline Casts 3 /Lpf UA Squamous Epithelial Few Culture? No ABORh Interp O POS ABSC 3 Cell Interp Negative , Interpretation I personally interpreted and reviewed laboratory data. . Radiology results: COMPLETED RADIOLOGY IMAGING STUDIES: [facility] [address] [place] [address]- ER RPT - Emergency Room Record ESO CT Spine Cervical WO Contrast [Auth (Verified)] (08/03 2100): FINAL IMPRESSION: 1. No fracture.2. Broad-based central disk protrusion at C3-4. 3. Smaller central disk protrusions at C4-5 and C5-6. 4. Disk osteophyte and facet hypertrophy cause moderate bilateral neural foraminal stenosis at C5-6 and C6- 7.Dictating Kandice Ramirezated 08/03/2018 21:00Signing Hammad Harris [id number] CT Head/Brain WO Contrast [Auth (Verified)] (08/03 2056): FINAL IMPRESSION:1. No acute intracranial hemorrhage.2. No intra-axial mass effect to suggest a recent large vessel territory CVA.3. Chronic left caudate lacunar infarct.Dictating Renetta Subramanian 08/03/2018 20:56Signing Jere Bradley [id number] XR Hip Min 2V RT [Auth (Verified)] (08/03 2041): FINAL IMPRESSION: No definite fracture.Given the background of diffusely decreased bone mineralization, if there is clinical concern for a radiographically occult non-displaced fracture, then consider further evaluation with CT or MRI examination. Dictating Tyler RamirezonDictated 08/03/2018 20:41Signing Hammad [id number] XR Hip Min 2V LT [Auth (Verified)] (08/03 2040): FINAL IMPRESSION: No definite fracture.Given the background of diffusely decreased bone mineralization, if there is clinical concern for a radiographically occult non-displaced fracture, then consider further evaluation with CT or MRI examination. Dictating Jon Ramirezictated 08/03/2018 20:40Signing Hammad Harris [id number] XR Ankle Min 3V RT [Auth (Verified)] (08/03 2037): FINAL IMPRESSION: 1. Acute, closed Chambers B distal fibular fracture with minimal displacement.2. Acute, closed transverse medial malleolus fracture with minimal displacement.Dictating Jon Ramirezictated 08/03/2018 20:37Signing Hammad [id number] . Reexamination/ Reevaluation Time: 08/03/18 21:30:00 . Pain status: decreased. Notes: I reviewed [employer] prior to writing for opioid prescription. Patie nt educated about her ryan fracture. To follow up with ortho kem. . Procedure Procedure notes: Sugar tong and posterior leg splint placed by tech. MARCOS intact afterward. Impression and Plan Diagnosis History of peripheral vascular disease - [id number] Z86.79 Fall - PNED [id number] Closed bimalleolar fracture of right ankle - [id number] S82.841A Calls-Consults - Spoke with ANA Modi, who agreed with posterior/sugartong splinting and nonweightbearing til follow up. . Plan Condition: Improved. Prescriptions: Launch prescriptions Pharmacy: Percocet 5/325 oral tablet (Prescribe): 1 TAB, PO, Q6H (Every 6 hours), PRN Pain, x 3 day, # 12 TAB, 0 Refill(s), for acute pain, Indication: Severe Pain, 08/03/2018 21:47 EDT . Patient was given the following educational materials: ANKLE FRACTURE (Distal Fibula), closed, Having Ankle Fracture Open Reduction and Internal Fixation, Having Ankle Fracture Open Reduction and Internal Fixation, ANKLE FRACTURE (Distal Fibula), closed, [address] [place] [address]- ER RPT - Emergency Room Record ESO Having Ankle Fracture Open Reduction and Internal Fixation, ANKLE FRACTURE (Distal Fibula), closed. Follow up with: SHANTHI HOOK In 1 day Please follow up with an orthopedic doctor. Call your vascular surgeon to make him aware of the situation. Do not bear weight on that foot. Please read educational information provided and return for worsening condition or concerns.; LEVI SUGGS In 1 day. Disposition: Discharged: Launch Orders Patient Care: Discharge (CPOE) (Order Processing): 08/03/2018 22:08 EDT . Counseled: Patient, Family, Regarding diagnosis, Regarding diagnostic results, Regarding treatment plan, Regarding prescription, Patient indicated understanding of instructions. [Electronically Signed By:] YSABEL HERNANDEZ MD On, 08/03/2018 10:15 PM 08/03/2018 [facility] Emergency Room Record [address] [address]- ER RPT - Emergency Room Record ESO DOCUMENT NAME: Emergency Room Record SERVICE DATE/TIME: 07/18/2018 19:43 EDT RESULT STATUS: Modified PERFORM INFORMATION: INOCENCIO ROSA MD (07/21/2018 10:51 EDT); ERICK SOSA PA-C (07/18/2018 19:56 EDT) SIGN INFORMATION: INOCENCIO ROSA MD (07/21/2018 10:51 EDT); ERICK SOSA PA-C (07/18/2018 21:52 EDT) Addendum by INOCENCIO ROSA MD on July 21, 2018 10:51 EDT I have provided a [id number] evaluation of the patient and agree with the documented history, physical examination, assessment and plan of care. A portion of the exam was performed by me. All medical decsion-making was done by me. Patient presents with chest pain Physical exam shows clear lungs EKG is normal Will admit [Electronically Signed By:] INOCENCIO TRACEY MD On, 07/21/2018 10:51 AM Chest pain Patient: KASEY RICKS Age: 73 years Sex: Female : 1945 Associated Diagnoses: None Author: ERICK SOSA PA-C Basic Information Time seen: Provider First contact date and time Provider Contact Date and Time Provider 07/18/2018 19:04 DIDI REDDY PA-C . History source: Patient, spouse, daughter. Arrival mode: Private vehicle. History limitation: None. Additional information: Patient's physician(s): Es, Chief Complaint from Nursing Triage Note: 07/18/2018 19:04 EDT Chief Complaint epigastric chest pain for several weeks. pt had heart cath on wednesday with dr. Garciabut was not given any results.. History of Present Illness The patient presents with chest pain and Left arm pain and then epigastric pain . The onset was 4 weeks ago and gradual. Radiation none. Movement none. Associated symptoms: none. The course/duration of symptoms is fluctuating in intensity. Location: epigastric. The character of symptoms is burning. The degree at onset was minimal. The degree at maximum was moderate. The degree at present is minimal. Exacerbating factors consist of none. The relieving factor is none. Prior episodes: none. Therapy today None. Risk factors: CAD Risk: HTN Diabetes TAD Risk: HTN PE Risk: None Had a nuclear scan and echo a few days ago are results unknown for cardiac clearance for surgery for claudication Did not take any of her medications this afternoon [address] [address]- ER RPT - Emergency Room Record ESO Review of Systems Constitutional symptoms: Negative except as documented in HPI. Skin symptoms: Negative except as documented in HPI. Eye symptoms: Negative except as documented in HPI. ENMT symptoms: Negative except as documented in HPI. Respiratory symptoms: Negative except as documented in HPI. Cardiovascular symptoms: Negative except as documented in HPI. Gastrointestinal symptoms: Negative except as documented in HPI. Genitourinary symptoms: Negative except as documented in HPI. Musculoskeletal symptoms: Negative except as documented in HPI. Neurologic symptoms: Negative except as documented in HPI. Psychiatric symptoms: Negative except as documented in HPI. Health Status Allergies: Allergic Reactions (Selected) Severity Not Documented Lidocaine- No reactions were documented. . Immunizations: Per nurse's notes. Past Medical/ Family/ Social History Medical history HEALTH HISTORY Appendectomy Patient Cataract surgery Patient Colonoscopy Patient Diabetes mellitus type II Patient Ex-cigarette smoker Patient Hyperlipidemia Patient Hypertension Patient Hypothyroidism Patient Peripheral vascular disease Patient TIA Patient . Social history: Alcohol use: Denies, Tobacco use: Quit 6 years ago, Drug use: Denies, Family/ social situation: . Physical Examination Gastrointestinal: Soft, Non distended, Normal bowel sounds, No organomegaly, Tenderness: Mild, epigastric. Vital Signs Vital Signs 07/18/2018 19:04 EDT Temperature 97.6 DegF Temp Method Oral Heart Rate 66 bpm Respiratory Rate 18 br/min Inet NIBP Systolic 223 mmHg >HHI Inet NIBP Diastolic 66 mmHg NIBP MAP Calc 118 . Oxygen Saturation 07/18/2018 19:04 EDT Oxygen Saturation 97 % . General: Alert, no acute distress. Skin: Warm. Eye: Pupils are equal, round and reactive to light, extraocular movements are intact, normal conjunctiva. Ears, nose, mouth and throat: Oral mucosa moist, no pharyngeal erythema or exudate. Neck: Supple, trachea midline, no tenderness. [facility] [address] [place] [address]- ER RPT - Emergency Room Record ESO Cardiovascular: Regular rate and rhythm, No murmur, Normal peripheral perfusion, No edema, Lower extremity pulses (repeat): Normal. Respiratory: Lungs are clear to auscultation, respirations are non-labored, breath sounds are equal, Symmetrical chest wall expansion. Chest wall: No tenderness, On exam: Bilateral, inferior, mild, tenderness. Musculoskeletal: Normal ROM. Genitourinary: Exam deferred. Neurological: Alert and oriented to person, place, time, and situation, No focal neurological deficit observed, normal sensory observed, normal motor observed, normal speech observed, normal coordination observed. Lymphatics: No lymphadenopathy. Psychiatric: Cooperative, appropriate mood and affect. Medical Decision Making Orders Launch Orders Pharmacy: Protonix (Order Processing): 40 mg, IV Push, Once, GERD, 07/18/2018 20:00 EDT, Stop date 07/18/2018 20:00 EDT Zofran (Order Processing): 4 mg, IV Push, Once, 07/18/2018 20:00 EDT, Stop date 07/18/2018 20:00 EDT morphine (Order Processing): 2 mg, IV Push, Once, 07/18/2018 20:00 EDT, Stop date 07/18/2018 20:00 EDT , Launch Orders Laboratory: Pro BNP Level (Order Processing): Blood, AddOn collect, 07/18/2018 20:33 EDT Urinalysis / Reflex Cult (Order Processing): Urine, Clean Catch, Stat collect, 07/18/2018 20:33 EDT, Nurse collect, Hold Until Collected , Launch Orders Pharmacy: labetalol (Order Processing): 5 mg, IV Push, Once, 07/18/2018 21:00 EDT, Stop date 07/18/2018 21:00 EDT . Electrocardiogram: Time 07/18/18 19:10:00, rate 68, QRS interval Right bundle branch block, Previous EKG available No changes. Results review: Lab results : Laboratory 07/18/2018 19:15 EDT WBC 3.6 x10'3/microL LOW RBC 3.86 x10'6/microL Hgb 11.4 g/dL Hct 35.5 % Platelet 163 x10'3/microL MCV 92.0 fL MCH 29.5 pg MCHC 32.1 g/dL RDW 43.4 fL MPV 10.4 fL Abs NRBCs 0.00 x10'3/microL Neutrophils 48.0 % Lymphs 38.8 % Monocytes % 10.1 % Eosinophil % 2.5 % Basophil % 0.3 % Neutro Absolute 1.7 x10'3/microL Lymph Absolute 1.4 x10'3/microL Bollinger Absolute 0.4 x10'3/microL Eos Absolute 0.1 x10'3/microL Basophil Absolute 0.0 x10'3/microL Immature Granulocytes Abs 0.01 x10'3/microL Immature Granulocytes % 0.3 % NRBC 0.0 /100WBC PT 12.8 second INR 1.0 NA Sodium 142 mmol/L [address] [address]- ER RPT - Emergency Room Record ESO Potassium 4.3 mmol/L Chloride 105 mmol/L CO2 27 mmol/L AGAP 10 Glucose 154 mg/dL HI BUN 20 mg/dL Creatinine 0.54 mg/dL Calcium 9.3 mg/dL Est CrCl (CG) 73.2 mL/min GFR (CKD-EPI) 92.6 mL/min/1.73 m2 NA Albumin Level 3.8 g/dL Total Protein 6.7 g/dL Troponin T 19.65 ng/L HI Alk Phos 82 Units/L AST 20 Units/L ALT(SGPT) 25 Units/L Bili Total 0.5 mg/dL . Radiology results: COMPLETED RADIOLOGY IMAGING STUDIES: XR Chest 1V [Auth (Verified)] (07/18 2017): FINAL IMPRESSION: Emphysematous changes. Cardiomegaly. No active pulmonary disease.Dictating Huey Hernandezictated 07/18/2018 20:15Signing Dr. Grady,Location: [id number] . Reexamination/ Reevaluation Time: 07/18/18 20:22:00 . Notes: Test results discussed with patient and family. Offered admission. Patient will like to go home however, patient's family would like her to stay for admission. . Time: 07/18/18 20:34:00 . Notes: Patient and family now complains that she has had decreased urinary urinary output today, and bilateral leg swelling. Patient was still like to be discharged home. However, with must discussion with patient and family patient will be admitted . Procedure Critical care note Critical condition(s) addressed for impending deterioration include: cardiovascular. Impression and Plan Diagnosis Chest pain - [id number] R07.9 Chest pain - RLT49-DB R07.9 Calls-Consults - 07/18/18 20:22:00 , RICH PERALTA, MATT, recommends Results for echo, scant or from a few days ago will not be available. Admit if patient desires or follow up outpatient. Plan Condition: Stable. Disposition: Admit. Counseled: Patient, Family, Regarding diagnosis, Regarding diagnostic results, Regarding treatment plan, Patient indicated understanding of instructions. [Electronically Signed By:] ERICK العراقي PA-C On, 07/18/2018 09:52 PM 07/18/2018 [facility] Emergency Room Record [address] [address]- ER RPT - Emergency Room Record ESO DOCUMENT NAME: Emergency Room Record SERVICE DATE/TIME: 07/18/2018 19:04 EDT RESULT STATUS: Auth (Verified) PERFORM INFORMATION: DIDI REDDY PA-C (07/18/2018 19:06 EDT) SIGN INFORMATION: INOCENCIO ROSA MD (07/21/2018 10:54 EDT); DIDI REDDY PA-C (07/18/2018 19:07 EDT) ED Triage Note [facility] Patient: KASEY RICKS Age: 73 years Sex: Female : 1945 Associated Diagnoses: None Author: DIDI REDDY PA-C Basic Information Time seen: Date 07/18/2018. Patient information:: Chief Complaint from Nursing Triage Note : Chief Complaint 07/18/2018 19:04 EDT Chief Complaint epigastric chest pain for several weeks. pt had heart cath on wednesday with dr. Garciabut was not given any results. . History of Present Illness 73 years old female came to ED because chest pain off and on for weeks. She also complained of weakness. . Physical Examination Vital Signs Vital Signs 07/18/2018 19:04 EDT Temperature 97.6 DegF Temp Method Oral Heart Rate 66 bpm Respiratory Rate 18 br/min Inet NIBP Systolic 223 mmHg >HHI Inet NIBP Diastolic 66 mmHg NIBP MAP Calc 118 . Oxygen Saturation 07/18/2018 19:04 EDT Oxygen Saturation 97 % . General: Alert, no acute distress. Skin: Not warm, Neurological: Normal motor observed, normal speech observed. Psychiatric: Cooperative, appropriate mood and affect. Medical Decision Making Orders Launch Orders Laboratory: Prothrombin Time with INR (Order Processing): Blood, Stat collect, 07/18/2018 19:05 EDT Troponin T QuaNT (Order Processing): Blood, Stat collect, 07/18/2018 19:05 EDT Comp Metabolic Panel (Order Processing): Blood, Stat collect, 07/18/2018 19:05 EDT CBC and Plt w Diff (Order Processing): Blood, Stat collect, 07/18/2018 19:05 EDT Patient Care: Saline lock insertion (Order Processing): 07/18/2018 19:05 EDT, Stat, Once, 07/18/2018 19:05 EDT RN Cont Pulse Oximeter (Order Processing): 07/18/2018 19:05 EDT, Continuous Order, Stat Recessing Machine Operator (Order Processing): 07/18/2018 19:05 EDT, Stat Pharmacy: [address] [address]- ER RPT - Emergency Room Record ESO Nitro-Bid 2% Ointment (Order Processing): 1 in, TOP, Once, STAT, 07/18/2018 19:05 EDT, Stop date 07/18/2018 19:05 EDT, hold for SBP less than 90 mmHg (nitroglycerin) aspirin (Order Processing): 324 mg, CHEW TAB, PO, Once, STAT, 07/18/2018 19:05 EDT, Stop date 07/18/2018 19:05 EDT Saline Flush (Order Processing): 10 mL, SYRINGE, IV Push, Daily, PRN Flush, 07/18/2018 19:05 EDT, Stop date 08/17/2018 19:04 EST Radiology: XR Chest 1V (Order Processing): 07/18/2018 19:05 EDT Stat, Reason: chest pain, ? Not applicable Transport Mode: Portable, IV? Yes, O2? No, Standard Precautions, Written Order Communication: OC AMI QMC (Order Processing): 07/18/2018 19:05 EDT OC Chest Pain (Order Processing): 07/18/2018 19:05 EDT , Launch Orders Pharmacy: cloNIDine (Order Processing): 0.1 mg, TAB, PO, Once, STAT, 07/18/2018 19:07 EDT, Stop date 07/18/2018 19:07 EDT . [Electronically Signed By:] DIDI SETHI PA-C On, 07/18/2018 07:07 PM [Electronically Signed by:] MEO PERALTA, INOCENCIO Ross MD On, 07.21.2018 10:54 A 07/18/2018 [facility] Procedure Report Radiology [employer] ([facility]) INTERVENTIONAL RADIOLOGY PROCEDURE NOTE Pre-op Dx: Right lower extremity claudication Post-op Dx: Same. Procedure: Right lower extremity angiogram. Test Lab Technician: Candice Mckinney MD Anesthesia: Local with 1% lidocaine. Conscious sedation with fentanyl and versed. EBL: 30 cc Findings: Complete occlusion proximal right SFA. Patent popliteal artery with 2 vessel runoff to the foot on the right via with posterior tibial and peroneal arteries. The left SFA demonstrates moderate to severe multifocal stenoses but remains patent. Drains: None. Specimen: None. Complications: No immediate. Plan: Bedrest with affected extremity straight 5 hours. Discharge when bedrest complete and if there are no complications. 06/24/2018 [facility] Emergency Room Record E m e r g e n c y R o o m R e c o r d Document Name Signed Date Emergency Room Record per contribution Signed By: 08/21/2017 8:04:14 AM EST; 08/19/2017 7:05:31 PM EST General medical Patient: KASEY RICKS Age: 72 years Sex: Female : 1945 Associated Diagnoses: None Author: ERNESTINA KERR PA-C Basic Information Time seen: Provider First contact date and time Provider Contact Date and Time Provider 08/19/2017 14:57 ERNESTINA KERR PA-C . History source: Patient. Arrival mode: Arrival Mode Wheelchair . History limitation: None. Additional information: Primary Care Physician ES PERALTA, LEVI Gilliam, Chief Complaint from Nursing Triage Note: 08/19/2017 13:58 EST Chief Complaint weakness fever and high blood sugar started last pm / early this am Sent home from hospital after uti last sat. bgl 192 in triage (Modified). History of Present Illness The patient presents with 72-year-old female with history of congestive heart failure, recently admitted discharge home this past Wednesday presents to ED brought in by her family. Family reports patient was doing okay for the past few days at home but they noted the last few days her sugars have been high area and also patient with fever of 102.6 this morning and generalized weakness. Family at bedside also noticed that patient has been talking to people who are not there. No report of any vomiting, diarrhea, cough.. The onset was 2 days ago. The course/duration of symptoms is worsening. Location: *. The character of symptoms is: Therapy today: none. Associated symptoms: fever. Review of Systems Constitutional symptoms: Negative except as documented in HPI. Skin symptoms: Negative except as documented in HPI. Eye symptoms: Negative except as documented in HPI. ENMT symptoms: Negative except as documented in HPI. Respiratory symptoms: Negative except as documented in HPI. Cardiovascular symptoms: Negative except as documented in HPI. Gastrointestinal symptoms: Negative except as documented in HPI. Genitourinary symptoms: Negative except as documented in HPI. Musculoskeletal symptoms: Negative except as documented in HPI. E m e r g e n c y R o o m R e c o r d Document Name Signed Date Emergency Room Record per contribution Signed By: 08/21/2017 8:04:14 AM EST; 08/19/2017 7:05:31 PM EST Neurologic symptoms: Negative except as documented in HPI. Psychiatric symptoms: Negative except as documented in HPI. Endocrine symptoms: Negative except as documented in HPI. Hematologic/Lymphatic symptoms: Negative except as documented in HPI. Allergy/immunologic symptoms: Negative except as documented in HPI. Additional review of systems information: All other systems reviewed and otherwise negative. Health Status Allergies: Allergic Reactions (Selected) Severity Not Documented Lidocaine- No reactions were documented.. Past Medical/ Family/ Social History Medical history HEALTH HISTORY Appendectomy Patient Cataract surgery Patient Colonoscopy Patient Diabetes mellitus type II Patient Ex-cigarette smoker Patient Hyperlipidemia Patient Hypertension Patient Hypothyroidism Patient Peripheral vascular disease Patient . Surgical history: Reviewed as documented in chart. Social history: Reviewed as documented in chart, Alcohol use: Denies, Tobacco use: Denies, Drug use: Denies. Physical Examination Vital Signs Vital Signs 08/19/2017 13:58 EST Temperature 100.7 DegF HI Temp Method Temporal Heart Rate 84 bpm Respiratory Rate 18 br/min Inet NIBP Systolic 164 mmHg Inet NIBP Diastolic 38 mmHg LOW NIBP MAP Calc 80 . Measurements 08/19/2017 13:58 EST Clinical Height 160 cm Height Method Stated E m e r g e n c y R o o m R e c o r d Document Name Signed Date Emergency Room Record per contribution Signed By: 08/21/2017 8:04:14 AM EST; 08/19/2017 7:05:31 PM EST Clinical Weight 65 kg Weight Method Estimated BMI 25.39 BSA 1.7 m2 . Oxygen Saturation 08/19/2017 13:58 EST Oxygen Saturation 92 % . General: Alert, no acute distress. Skin: No pallor, no rash. Head: Normocephalic, atraumatic. Neck: Supple, trachea midline. Cardiovascular: Regular rate and rhythm, Normal peripheral perfusion, No edema. Respiratory: Respirations are non-labored, breath sounds are equal, Breath sounds: Bilateral, diminished. Gastrointestinal: Soft, Nontender, Non distended, Normal bowel sounds. Neurological: No focal neurological deficit observed, CN II-XII intact, Cognitive function: To person, to place, to situation, Speech: Normal. Psychiatric: Cooperative, appropriate mood and affect. Medical Decision Making Electrocardiogram: Normal sinus rhythm, No ST-T changes. Results review: Lab results : Laboratory 08/19/2017 17:17 EST UA Color Light-Yellow UA Appear Clear UA pH 5.5 UA Spec Grav 1.015 UA Glucose Negative UA Bili Negative UA Ketones Negative UA Blood Negative UA Protein 1+ UA Nitrite Negative UA Leuk Est Negative UA Urobilinogen Normal UA Spec Type Clean Catch UA WBC 1 /hpf UA RBC <1 /hpf UA Bacteria None UA Mucous Trace UA Squamous Epithelial Trace Culture? No 08/19/2017 15:27 EST WBC 10.3 x10'3/microL RBC 3.39 x10'6/microL LOW Hgb 9.9 g/dL LOW Hct 30.9 % LOW Platelet 222 x10'3/microL E m e r g e n c y R o o m R e c o r d Document Name Signed Date Emergency Room Record per contribution Signed By: 08/21/2017 8:04:14 AM EST; 08/19/2017 7:05:31 PM EST MCV 91.2 fL MCH 29.2 pg MCHC 32.0 g/dL LOW RDW 47.1 fL HI MPV 10.1 fL Neutrophils 82.4 % HI Lymphs 10.6 % LOW Monocytes % 5.8 % Eosinophil % 0.4 % Basophil % 0.1 % Neutro Absolute 8.5 x10'3/microL HI Lymph Absolute 1.1 x10'3/microL Bollinger Absolute 0.6 x10'3/microL Eos Absolute 0.0 x10'3/microL Basophil Absolute 0.0 x10'3/microL Immature Granulocytes Abs 0.1 x10'3/microL Immature Granulocytes % 0.7 % Sodium 135 mmol/L LOW Potassium 4.0 mmol/L Chloride 100 mmol/L CO2 21 mmol/L LOW AGAP 14 Glucose 213 mg/dL HI BUN 24.8 mg/dL HI Creatinine 0.82 mg/dL Calcium 8.9 mg/dL Est CrCl (CG) 49.8 mL/min GFR (CKD-EPI) 70.7 mL/min/1.73 m2 NA Albumin/Globulin Ratio 0.8 g/dL LOW Albumin Level 3.3 g/dL LOW Total Protein 7.2 g/dL Globulin 3.9 g/dL Magnesium 1.70 mg/dL Troponin T <0.01 ng/mL NA pro-BNP 1,763 pg/mL HI Alk Phos 83 Units/L AST 14 Inter. Units/L ALT(SGPT) 14 Inter. Units/L Bili Total 0.8 mg/dL Lactic Acid Lvl 1.1 mmol/L 08/19/2017 14:03 EST Glucose Level (POC) 192 mg/dL HI . Radiology results: COMPLETED RADIOLOGY IMAGING STUDIES: E m e r g e n c y R o o m R e c o r d Document Name Signed Date Emergency Room Record per contribution Signed By: 08/21/2017 8:04:14 AM EST; 08/19/2017 7:05:31 PM EST XR Chest 1V [Auth (Verified)] (08/19 1530): FINAL IMPRESSION: Mild interstitial prominence both lungs may represent mild changes of edema.Dictating Iglesia Loyaated 08/19/2017 15:40Signing Micah TylerlLocation [id number] . Reexamination/ Reevaluation Time: 08/19/17 18:34:00 . Vital signs Vital signs from flowsheet 08/19/2017 18:00 EST Temperature 98.8 DegF Temp Method Temporal Heart Rate 75 bpm Respiratory Rate 20 br/min (Modified) Inet NIBP Systolic 150 mmHg Inet NIBP Diastolic 48 mmHg LOW NIBP MAP 77 mmHg NIBP MAP Calc 82 Notes: Psych screener evaluation pending but patient's family is declining psych eval at this time. they now want to take patient home. Patient does have a follow-up appointment with her PCP next week. Family was advised to return to ED for re-evaluation if any new, worsening or concerning symptoms. Patient answers questions appropriately. Alert and oriented and afebrile in the ED. Patient complaining of just generalized weakness but otherwise has no other complaints.. Impression and Plan Diagnosis Altered mental status - [id number] R41.82 Calls-Consults - 08/19/17 18:07:00 , EULALIA BORJA MD, phone call, consult, states pt does not meet any medical admission criteria at this time and recommends psych eval. - 08/19/17 18:10:00 , consult, Psych screener Ashley consulted pending evaluation..... - 08/19/17 18:54:00 , EULALIA BORJA MD, phone call, consult, Discussed case again with family's concerns. He has reviewed patient's chart and has noted patient to have history of lacunar infarcts, again states patient does not meet any admission criteria at this time and recommends for patient to continue her aspirin and Plavix. . Plan Condition: Stable. Disposition: Discharged: to home. Counseled: Patient, Regarding diagnosis, Regarding diagnostic results, Regarding treatment plan, Regarding prescription, Patient indicated understanding of instructions. E m e r g e n c y R o o m R e c o r d Document Name Signed Date Emergency Room Record per contribution Signed By: 08/21/2017 8:04:14 AM EST; 08/19/2017 7:05:31 PM EST Notes: pt independently assessed and case discussed with attending physician who agreed with plan of care and follow up. [Electronically Signed By:] ERNESTINA TENA PA-C On, 08/19/2017 07:05 PM Addendum by BENJAMIN HAHN MD on August 21, 2017 08:04 EST This patient is a 72-year-old female that presents for evaluation of generalized weakness and high blood sugar that began last night. The patient says that she was just sent home from the hospital for urinary tract infection. Patient says that she just feels weak. She says that her family has had to support her for the past few days. She was diagnosed with congestive heart failure and a UTI. She says that she had a fever of 102.6 at home. The patient's family says that she was hallucinating a little bit more and then just started on . She underwent a brain CT which is normal. The patient's chest x-ray was also normal as well. The patient did not have a urinary tract infection, her white count was normal, the patient had a normal creatinine, her BNP was only slightly elevated at 1763. Patient's family says that they are able to take care of her as her is capable of doing so. The patient was alert and oriented 4. She did not seem to be hallucinating by any means. She was answering all my questions without any difficulty. The patient is currently on antibiotics, Ceftin and she has a follow-up with her primary care provider after being discharged from the hospital. She was on the medication for 5 days and was actually extended to 10 so she is currently still on it. The patient's family did not want to take her home so we attempted to reach out to the hospitalist regarding this patient's clinical status he said that the patient was actually just discharged, she did well in the hospital, and he said that in lieu of her having a normal white count, normal creatinine, he did not want to admit this patient. He recommended that we reach out to the psych screener for further evaluation. We did reach out to the psych screener and they were going to come down to see the patient however the patient's family did not climbed that evaluation at this time they want to take the patient home. Patient does have a follow-up appointment with her primary care provider next week and was advised that if her symptoms get progressively worse, she starts to get more confused and E m e r g e n c y R o o m R e c o r d Document Name Signed Date Emergency Room Record per contribution Signed By: 08/21/2017 8:04:14 AM EST; 08/19/2017 7:05:31 PM EST more generalized weakness that she does report back to the emergency department. In my opinion, the patient did not look to be in any acute distress, she had good follow-up with a primary doctor, and she had good care with her daughter as well as her . I have reviewed the CAROLYN's documentation and am in agreement. I met with the patient [id number], performed a portion of the physical exam, and I made the diagnosis, and medical decision making. The patient understands the plan of care. [Electronically Signed By:] MD SELMA PERALTA, BENJAMIN On, 08/21/2017 08:04 AM 08/19/2017 [facility] [place] Consultation Report Requesting Antonella Comer Consulting Physician Raymundo Braxton M.D. Reason For Consultation Possible heart failure, shortness of breath Subjective/History of Present Illness Thank you for the consultation. History is obtained from the patient and her chart. This is a 72 year old female with a history of diabetes, hypertension, COPD, peripheral arterial disease who was admitted with generalized fatigue and weakness. She has had shortness of breath recently , attributed to COPD. There were concerns for possible heart failure. The patient denies any chest discomfort or palpitations. She has been admitted and evaluation has shown acute stroke. The patient currently denies any shortness of breath at rest. She has had improvement in symptoms . She has had neurology evaluation. Patient has COPD and uses home oxygen. Review of Systems Constitutional: Negative except as documented in history of present illness. Eye: Negative. Ear/Nose/Mouth/Throat: Negative. Respiratory: Negative except as documented in history of present illness. Cardiovascular: Shortness of breath, no chest pain Gastrointestinal: Negative except as documented in history of present illness. Hematology/Lymphatics: Negative. Musculoskeletal: Negative. Integumentary: Negative. Neurologic: Negative. All other systems are negative Objective Vitals and Measurements (Last Charted) T: 97.5 F TMIN: 97.4 F TMAX: 99.1 F HR: 66 RR: 18 BP: 172/66 SpO2: 98% WT: 66.5 kg BMI: 27.34 Physical Exam General: Alert and oriented, No acute distress. Eye: Extraocular movements are intact, Normal conjunctiva. HENT: Normocephalic, Normal hearing. Neck: Supple, Non-tender, No carotid bruit, No jugular venous distention, No lymphadenopathy. Respiratory: Lungs are clear to auscultation, Breath sounds are equal, Symmetrical chest wall expansion. Cardiovascular: Normal rate, Regular rhythm, 1/6 systolic murmur, No gallop, 1+ pulses bilaterally, Normal peripheral perfusion, No edema. Gastrointestinal: Soft, Non-tender, Non-distended, Normal bowel sounds, No organomegaly. Lymphatics: No lymphadenopathy neck, axilla, groin. Musculoskeletal: Normal range of motion, Normal strength, No swelling. Integumentary: Warm, Intact, No pallor, No rash. Neurologic: Alert, Oriented, Normal motor function. Psychiatric: Cooperative, Appropriate mood and affect Lab Results LABORATORY RESULTS CBC and Plt w/o Diff WBC 3.9 x10'3/microL 08/13/17 0556 RBC 3.66 x10'6/microL 08/13/17 0556 Hgb 10.6 g/dL 08/13/17 0556 Hct 33.5 % 08/13/17 0556 Platelet 140 x10'3/microL 08/13/17 0556 Prothrombin Time with INR INR No results in last 24hrs PTT_INR No results in last 24hrs PTT PTT No results in last 24hrs Basic Metabolic Panel Sodium 136 mmol/L 08/13/17 0556 Potassium 3.9 mmol/L 08/13/17 0556 Chloride 97 mmol/L 08/13/17 0556 CO2 25 mmol/L 08/13/17 0556 Glucose Level ( 264 mg/dL 08/13/17 1632 BUN 23.0 mg/dL 08/13/17 0556 Creatinine 0.88 mg/dL 08/13/17 0556 Calcium 8.7 mg/dL 08/13/17 0556 WBC WBC L 3.9 x10'3/microL 08/13/17 0556 Bands No results in last 24hrs Glucose Glucose Level ( H 264 mg/dL 08/13/17 1632 Glucose Level ( H 269 mg/dL 08/13/17 1433 Glucose Level ( H 290 mg/dL 08/13/17 1208 Glucose Level ( H 205 mg/dL 08/13/17 0740 Glucose H 256 mg/dL 08/13/17 0556 Glucose Level ( H 315 mg/dL 08/12/17 2124 Glucose Level ( H 242 mg/dL 08/12/17 2013 PCO2 No results in last 24hrs INR No results in last 24hrs APTT No results in last 24hrs Platelet Count Platelet 140 x10'3/microL 08/13/17 0556 Bilirubin No results in last 24hrs Creatinine Creatinine 0.88 mg/dL 08/13/17 0556 ECG shows sinus rhythm with right bundle branch block. Radiology (Past 36 Hrs) COMPLETED RADIOLOGY IMAGING STUDIES: US Carotid Duplex Derrell [Auth (Verified)] (08/13 1120): FINAL IMPRESSION: Extensive plaque formation with calcifications bilaterally.Doppler evaluation indicates 50-69% stenosis left internal carotid artery.Dictating Linsey Cintron 08/13/2017 11:25Signing Yuval Joe [id number] MR Brain WO Cont [Auth (Verified)] (08/12 2303): FINAL IMPRESSION:1. Small acute striatocapsular lacunar infarct within the left posterior subinsular region. No significant mass effect. No evidence of acute hemorrhagic transformation.2. Prominent chronic sequelae of small vessel ischemic disease. Dictating Jennifer Robles 08/12/2017 23:07Signing Josué Graff [id number] CT Chest PE W Contrast [Auth (Verified)] (08/12 2012): FINAL IMPRESSION: 1. Limited evaluation of the subsegmental arteries due to artifact. Otherwise, no evidence of pulmonary embolus.2. No acute abnormality.3. Small pericardial effusion, nonspecific. Extensive coronary artery calcifications.4. Mild/moderate emphysema.5. Tiny nonspecific right middle lobe pulmonary nodule, follow-up per Fleischner criteria.6. Other findings discussed above.Incidental single solid nodule <6 mm:Low risk: No routine follow-up. High risk: Optional CT at 12 months. Certain patients at high risk with suspicious nodule morphology, upper lobe location, or both may warrant 12-month follow-up. NOTE: These recommendations do not apply to patients with immunosuppression or patients with known primary cancer. REFERENCE: Fleischner Society 2017 Guidelines for Management of Incidentally Detected Pulmonary Nodules in Adults. Radiology 2017.Dictating Dr. HarperTodDictated 08/12/2017 20:16Signing Dr HarperTooSle [id number] CT Head/Brain WO Contrast [Auth (Verified)] (08/12 1750): FINAL IMPRESSION:No mass, hemorrhage or CT evidence for acute infarction.Moderate bilateral white matter microangiopathic ischemic change.Chronic lacune, body of the left caudate nucleus.Dictating Dr. Eneida EdDictated 08/12/2017 17:58Signing Jaswinder Sandoval [id number] XR Chest 1V [Auth (Verified)] (08/12 1718): FINAL IMPRESSION: Mild CHF/interstitial edema.Dictating Cecilia Mominctwen 08/12/2017 17:22Signing Michelle Hurt [id number] Clinical Impression and Recommendation 1. Dyspnea-likely multifactorial, with COPD history. 2. Suspected diastolic heart failure-echo findings were reviewed. Currently no obvious volume overload on exam. 3. Acute stroke 4. Diabetes 5. COPD 6. Diabetes 7. Hypothyroidism 8. Hypertension-blood pressure elevated. Recommendations: Findings discussed with patient and nursing . Echo results were reviewed. Continue with current medications, following blood pressure and telemetry. Continue workup as per Neurology recommendations. Will hold off on other cardiac testing for now , especially as symptoms have improved. Continue medications including aspirin and Plavix. Thank you for allowing me to participate in the care of your patient. Active Scheduled Medications aspirin (aspirin) 325 mg, EC Tablet, PO, Daily, 08/13/17 9:00:00 EDT, maintenance dose atorvastatin (atorvastatin) 10 mg, TAB, PO, QHS (At bedtime), 08/13/17 22:00:00 EDT cefTRIAXone (cefTRIAXone) 1 GM, SOLUTION, IV, Q24H (Every 24 hours), UTI Cystitis/Lower - Uncomplicated, NOW, 08/12/17 20:09:00 EDT, 3 day, Stop date 08/14/17 21:00:00 EDT, 50 mL/hr, infuse over 1 HR clopidogrel (Plavix) 75 mg, TAB, PO, Daily, 08/14/17 9:00:00 EDT insulin aspart (NovoLOG) 3 Unit, INJ, Subcut, WM (With meals), 08/13/17 12:21:00 EDT insulin aspart (insulin aspart) MEDIUM DOSE, INJ, Subcut, WMHS (With meals and at bedtime), 08/13/17 17:00:00 EDT, Correctional Dose Insulin Medium Dose Schedule (insulin aspart) insulin glargine (Lantus) 12 Unit, INJ, Subcut, QHS (At bedtime), 08/13/17 22:00:00 EDT levothyroxine (levothyroxine) 150 mcg, TAB, PO, Daily, 08/13/17 11:30:00 EDT losartan (losartan) 100 mg, TAB, PO, Daily, 08/13/17 9:00:00 EDT metoprolol (Metoprolol Tartrate) 50 mg, TAB, PO, BID (2 times a day), 08/13/17 9:00:00 EDT Sodium Chloride (Saline Flush) 10 mL, SYRINGE, IV Push, Q8H (Every 8 hours), 08/13/17 1:00:00 EDT, Flush PRN Administrations in Last 24 Hours Al hydroxide/Mg hydroxide/simethicone (Mylanta) 30 mL, SUSP, PO, 4 times a day, PRN Indigestion, 08/12/17 23:24:00 EDT Allergies lidocaine Pertinent Social History Social History: Preferred Language: Bengali Recent Travel: No recent travel Signs of Abuse: No Domestic Concerns: None Drug use: Patient denies Alcohol Use Alcohol Use: Alcohol Treatment: Alcohol Use Age Started: Alcohol Type: Alcohol Amount: Frequency: Last Alcohol use in previous 12 months: Years of Use: Last Use: Tobacco Use Smoking Status: Former smoker Tobacco use: Last tobacco use was greater than 1 year Tobacco cessation information Pertinent Family History FAMILY HEALTH HISTORY Patient does not recall prior family history. PATIENT HEALTH HISTORY Appendectomy Patient Cataract surgery Patient Colonoscopy Patient Diabetes mellitus type II Patient Ex-cigarette smoker Patient Hyperlipidemia Patient Hypertension Patient Hypothyroidism Patient Peripheral vascular disease Patient 08/13/2017 [facility] Consultation Report C o n s u l t a t i o n R e p o r t Document Name Signed Date Consultation Report 08/13/2017 2:03:54 PM EDT Tele-Specialist Consult Note Patient: KASEY RICKS Age: 72 years Sex: Female : 1945 Associated Diagnoses: None Author: SEBASTIAN PERALTA, TARIQ [facility] TeleNeurology Consult Report Asked to see this patient in telemedicine consultation. Consultation was performed with assistance of ancillary / medical staff at bedside. Reason for consultation: acute stroke Consultation Information Reason for consultation: IMPRESSION: Bilater athero carotids, 50-69% Major stroke risks PLAN:Aggressive medical therapy dual antiplatelet--6 months consider switching to one HALEY or ARB losartin on it--OK LDL below 70--OK aspirin and Plaix for 6 mo, then Plavix alone, Plavix superior to ASA in diabetics in 6 months, repeat ultrasound of carotids--6 mo need echo result before considering discharge if echo shows no need for anticoagulation--cleared not allowed to be alone for 72 hours OK for discharge History This is a 72 years old patient with past medical history of COPD, diabetes mellitus type 2, hypertension, hypothyroidism, PAD and is coming to the emergency room with complaints of generalized weakness and fatigue, feeling cold and having shakes and not feeling well for the past 2 days-as per family patient started to have the symptoms Wednesday night after eating at a local restaurant and later at home she spiked a fever >100F and patient said there were some moments that when she cannot recall some of the events although she denies any syncope but had C o n s u l t a t i o n R e p o r t Document Name Signed Date Consultation Report 08/13/2017 2:03:54 PM EDT some dizzy spells on and off. Patient has shortness of breath but she states that usually she has some shortness of breath due to her COPD-patient is not using oxygen at home. As well patient had 2 days ago an episode of vomiting - thought she had a food poisoning-no more since then. She is poor historian- she admits migth had some dysuria, no hematuria . Subjective:: Son is here. Patient was unable to walk yesterday, son had to hold her up, she was weight to them. Neither arm was working right either. Speech was OK. No facial droop. Vision was OK. Came to urgent care who sent her to hospital. At urgent care she was able to walk, family helped with balance. By ER was walking better, but not back to normal. Ate breakfast, no problems. Up to [place], PT here and he said walking was was good Lives with Stroke risks, diabetes, high cholesterol, hypertension. Was NOT on aspirin before this happened. . Medication List: Active Scheduled Medications aspirin (aspirin) 325 mg, EC Tablet, PO, Daily, 08/13/17 9:00:00 EDT, maintenance dose atorvastatin (atorvastatin) 10 mg, TAB, PO, QHS (At bedtime), 08/13/17 22:00:00 EDT cefTRIAXone (cefTRIAXone) 1 GM, SOLUTION, IV, Q24H (Every 24 hours), UTI Cystitis/Lower - Uncomplicated, NOW, 08/12/17 20:09:00 EDT, 3 day, Stop date 08/14/17 21:00:00 EDT, 50 mL/hr, infuse over 1 HR clopidogrel (Plavix) 300 mg, TAB, PO, Once, 08/13/17 14:00:00 EDT, Stop date 08/13/17 14:00:00 EDT clopidogrel (Plavix) 75 mg, TAB, PO, Daily, 08/14/17 9:00:00 EDT insulin aspart (insulin aspart) LOW DOSE, INJ, Subcut, WMHS (With meals and at bedtime), 08/12/17 21:00:00 EDT, Correctional Dose Insulin Low Dose Schedule (insulin aspart) insulin aspart (NovoLOG) 3 Unit, INJ, Subcut, WM (With meals), 08/13/17 12:21:00 EDT insulin glargine (Lantus) 12 Unit, INJ, Subcut, QHS (At bedtime), 08/13/17 22:00:00 EDT levothyroxine (levothyroxine) 125 mcg, TAB, PO, Daily, 08/13/17 11:30:00 EDT losartan (losartan) 100 mg, TAB, PO, Daily, 08/13/17 9:00:00 EDT metoprolol (Metoprolol Tartrate) 50 mg, TAB, PO, BID (2 times a day), 08/13/17 9:00:00 EDT Sodium Chloride (Saline Flush) 10 mL, SYRINGE, IV Push, Q8H (Every 8 hours), 08/13/17 1:00:00 EDT, Flush PRN Administrations in Last 24 Hours Al hydroxide/Mg hydroxide/simethicone (Mylanta) C o n s u l t a t i o n R e p o r t Document Name Signed Date Consultation Report 08/13/2017 2:03:54 PM EDT 30 mL, SUSP, PO, 4 times a day, PRN Indigestion, 08/12/17 23:24:00 EDT , Home Medication List Medication atorvastatin(atorvastatin 10 mg oral tablet)(atorvastatin) 10 mg 1 TAB By Mouth DAILY glipiZIDE(glipiZIDE 5 mg oral tablet)(glipiZIDE) 5 mg 1 TAB By Mouth 2 TIMES A DAY levothyroxine(levothyroxine 125 mcg (0.125 mg) oral tablet)(levothyroxine) 125 mcg 1 TAB By Mouth DAILY losartan(losartan 100 mg oral tablet)(losartan) 100 mg 1 TAB By Mouth DAILY metFORMIN(metFORMIN 500 mg oral tablet)(metFORMIN) 500 mg 1 TAB By Mouth DAILY metoprolol(Metoprolol Tartrate 50 mg oral tablet)(metoprolol) 50 mg 1 TAB By Mouth 2 TIMES A DAY traMADol(traMADol 50 mg oral tablet)(traMADol) 50 mg 1 TAB By Mouth Every 6 hours PRN as needed for pain . Physical Examination Neurologic: Alert, Oriented, speech normal sense of humor good no motor deficit RUE LE normal finger to nose normal visual marquez normal leg strength normal r and L . Objective Radiology results: COMPLETED RADIOLOGY IMAGING STUDIES: US Carotid Duplex Derrell [Auth (Verified)] (08/13 1120): FINAL IMPRESSION: Extensive plaque formation with calcifications bilaterally.Doppler evaluation indicates 50-69% stenosis left internal carotid artery.Dictating Cornel Cintronctated 08/13/2017 11:25Signing Yuval Joe [id number] MR Brain WO Cont [Auth (Verified)] (08/12 2303): FINAL IMPRESSION:1. Small acute striatocapsular lacunar infarct within the left posterior C o n s u l t a t i o n R e p o r t Document Name Signed Date Consultation Report 08/13/2017 2:03:54 PM EDT subinsular region. No significant mass effect. No evidence of acute hemorrhagic transformation.2. Prominent chronic sequelae of small vessel ischemic disease. Dictating Jennifer Robles 08/12/2017 23:07Signing Josué Graff [id number] CT Chest PE W Contrast [Auth (Verified)] (08/12 2012): FINAL IMPRESSION: 1. Limited evaluation of the subsegmental arteries due to artifact. Otherwise, no evidence of pulmonary embolus.2. No acute abnormality.3. Small pericardial effusion, nonspecific. Extensive coronary artery calcifications.4. Mild/moderate emphysema.5. Tiny nonspecific right middle lobe pulmonary nodule, follow-up per Fleischner criteria.6. Other findings discussed above.Incidental single solid nodule <6 mm:Low risk: No routine follow-up. High risk: Optional CT at 12 months. Certain patients at high risk with suspicious nodule morphology, upper lobe location, or both may warrant 12-month follow-up. NOTE: These recommendations do not apply to patients with immunosuppression or patients with known primary cancer. REFERENCE: Fleischner Society 2017 Guidelines for Management of Incidentally Detected Pulmonary Nodules in Adults. Radiology 2017.Dictating Mark Brookeictwen 08/12/2017 20:16Signing Manjit Lujan [id number] CT Head/Brain WO Contrast [Auth (Verified)] (08/12 597): FINAL IMPRESSION:No mass, hemorrhage or CT evidence for acute infarction.Moderate bilateral white matter microangiopathic ischemic change.Chronic lacune, body of the left caudate nucleus.Dictating Juliana Lambertctwen 08/12/2017 17:58Signing Dr Cano,EdLocation [id number] XR Chest 1V [Auth (Verified)] (08/12 1718): FINAL IMPRESSION: Mild CHF/interstitial edema.Dictating Lico MominDictated 08/12/2017 17:22Signing Dr Berumen,MarcLocation [id number] , Reviewed the MRI films. The acute stroke is very small, 3 mm X 6 mm, . Lab Results: LABORATORY RESULTS: Glucose POC DEL 08/13/17 12:08 Glu POC DEL 290 H Glucose POC DEL 08/13/17 07:40 Glu POC DEL 205 H CBC and Plt w Diff 08/13/17 05:56 Instr WBC 3.9 WBC 3.9 L RBC 3.66 L HGB 10.6 L HCT 33.5 L MCV 91.5 MCH 29 MCHC 31.6 L RDW 47.2 H Platelet 140 C o n s u l t a t i o n R e p o r t Document Name Signed Date Consultation Report 08/13/2017 2:03:54 PM EDT MPV 11.2 Auto Diff 08/13/17 05:56 Neutro Auto 56 Lymph Auto 30.9 Bollinger Auto 10 Eos Auto 2.3 Basophil Auto 0.5 Imm Gran Auto 0.3 Neutro Absolute 2.2 Lymph Absolute 1.2 Bollinger Absolute 0.4 Eos Absolute 0.1 Basophil Absolute 0 Imm Gran Absolute 0 Basic Metabolic Panel 08/13/17 05:56 Sodium 136 Potassium 3.9 Chloride 97 L AGAP 14 CO2 25 Glucose 256 H BUN 23 H Creatinine 0.88 Calcium 8.7 L Lipid Panel 08/13/17 05:56 Chol 104 Trig 311 H HDL 13 L Calculated LDL 29 Chol/HDL Ratio 8 LDL/HDL Ratio 2.2 VLDL 62 T4 (Thyroxine) Free 08/13/17 05:56 T4 Free 0.83 Renal Function Index 08/13/17 05:56 GFR (CKD-EPI) 64.9 Hemoglobin A1C 08/13/17 05:56 Hgb A1c 10.3 H Est Avg Glucose 249 C o n s u l t a t i o n R e p o r t Document Name Signed Date Consultation Report 08/13/2017 2:03:54 PM EDT Troponin T QuaNT 08/13/17 05:56 Trop T < 0.01 Troponin T QuaNT 08/12/17 23:12 Trop T < 0.01 Glucose POC DEL 08/12/17 21:24 Glu POC DEL 315 H Urinalysis / Reflex Cult 08/12/17 19:08 UA Spec Type Clean Catch UA Color Yellow UA Appear Hazy* UA Spec Grav 1.02 UA pH 5.5 UA Protein 2+* UA Glucose 4+* UA Ketones Trace* UA Bili Negative UA Blood 1+* UA Urobilinogen 1+* UA Nitrite Negative UA Leuk Est 3+* MicroscopicDone? Yes Culture? Yes UA RBC 2 UA WBC 47 H UA Squam Epithelial Trace UA Bacteria 4+* UA Mucous 2+* UA WBC Clumps Present* Glucose POC DEL 08/12/17 18:54 Glu POC DEL 321 H Blood Gas Analysis 08/12/17 17:50 Test to be Performed Blood Gas Analysis Type BGCOOX Sample Type Sample Site Radial, Right Jon Test Drawn by pH 7.5 H pCO2 33.7 L pO2 61 L HCO3 25.8 H C o n s u l t a t i o n R e p o r t Document Name Signed Date Consultation Report 08/13/2017 2:03:54 PM EDT BE 3 H %Sat 93.2 L PT Temp 98.6 pHtc 7.5 pCO2tc 33.7 pO2tc 61 tHGB 12.1 tHCT 36 Oxyhemoglobin 91.1 L Carboxyhemoglobin 2 H Methemoglobin 0.3 Mode Procurement Personnel Resp Therapist Bandage Applied Yes Site Held 5 Mins Yes tCO2 26.8 CBC and Plt w Diff 08/12/17 17:24 Instr WBC 3.2 WBC 3.2 L RBC 3.78 L HGB 11.2 L HCT 34.8 L MCV 92.1 MCH 29.6 MCHC 32.2 L RDW 47.3 H Platelet 127 L MPV 11.3 Auto Diff 08/12/17 17:24 Neutro Auto 71.5 Lymph Auto 22.5 Bollinger Auto 5.1 Eos Auto 0.6 Basophil Auto 0.3 Imm Gran Auto 0 Neutro Absolute 2.3 Lymph Absolute 0.7 L Bollinger Absolute 0.2 Eos Absolute 0 Basophil Absolute 0 Imm Gran Absolute 0 Comp Metabolic Panel 08/12/17 17:24 Sodium 135 L C o n s u l t a t i o n R e p o r t Document Name Signed Date Consultation Report 08/13/2017 2:03:54 PM EDT Potassium 4.3 Chloride 96 L CO2 27 Glucose 308 H BUN 27 H Creatinine 0.89 Calcium 9.2 Total Protein 7.7 Albumin 3.6 Bili Total 1.2 Alk Phos 101 AST 41 H ALT (SGPT) 45 Globulin 4.1 H AG ratio 0.9 L AGAP 12 Troponin T QuaNT 08/12/17 17:24 Trop T 0.01 Beta Hydroxybutyric Acid 08/12/17 17:24 Hydroxybutyrate 0.3 H Magnesium Level 08/12/17 17:24 Magnesium 2 Phosphorus Level 08/12/17 17:24 Phos 1.7 L Renal Function Index 08/12/17 17:24 GFR (CKD-EPI) 64 Pro BNP Level 08/12/17 17:24 pro-BNP 1557 H Prothrombin Time with INR 08/12/17 17:24 PT 13.9 INR 1.1 PTT 08/12/17 17:24 PTT 32.7 Lactic Acid/Reflex x2 if Greater Than 2 08/12/17 17:24 Lactic Acid 1.6 Influenza A and B Antigen 08/12/17 17:24 C o n s u l t a t i o n R e p o r t Document Name Signed Date Consultation Report 08/13/2017 2:03:54 PM EDT Source STEAMFITTER APPRENTICE Swab Influenza A Ag Neg for Flu A Influenza B Ag Neg for Flu B TSH 08/12/17 17:24 TSH 7.87 H Glucose POC DEL 08/12/17 15:58 Glu POC DEL 315 H . [Electronically Signed By:] MD SEBASTIAN PERALTA, TARIQ On, 08/13/2017 02:03 PM 08/13/2017 [facility] Emergency Room Record E m e r g e n c y R o o m R e c o r d Document Name Signed Date Emergency Room Record 08/12/2017 8:59:15 PM EDT Dizziness Patient: AKSEY RICKS Age: 72 years Sex: Female : 1945 Associated Diagnoses: None Author: DARRYL HINES DO Basic Information Time seen: Provider First contact date and time Provider Contact Date and Time Provider 08/12/2017 16:40 DARRYL HINES DO . History source: Patient. Arrival mode: Arrival Mode Wheelchair . History limitation: None. Additional information: Primary Care Physician LEVI SUGGS MD, Chief Complaint from Nursing Triage Note: 08/12/2017 15:54 EDT Chief Complaint c/o dizziness , nausea, elevated BS and diarrhea times 3 days sent from [facility]. History of Present Illness The patient presents with dizziness. The onset was 3 days ago. The course/duration of symptoms is constant. The character of symptoms is FATIGUE, WEAKNESS. The degree at present is moderate. The exacerbating factor is none. The relieving factor is none. Risk factors consist of hypertension, diabetes mellitus and CHF. Prior episodes: none. Therapy today: [facility]RGENT [facility]ARE [facility]IC. Associated symptoms: shortness of breath, denies chest pain, denies nausea, denies vomiting, denies abdominal pain, denies headache, denies syncope, denies palpitations, denies altered vision, denies altered speech, denies altered coordination, denies confusion, denies seizure, denies blood in stool and denies vaginal bleeding. PATIENT PRESENTS EMERGENCY DEPARTMENT FOR GENERALIZED WEAKNESS AND FATIGUE. PATIENT HAS NOT BEEN FEELING WELL THE PAST COUPLE OF DAYS. PATIENT HAS A BRIEF AREA OF TIME IN WHICH SHE CANNOT RECALL RECALL OR HAS ANY RECOLLECTION OF THE EVENTS. ACCORDING TO THE SHE VOMITED AND WAS PALE IN NATURE. PATIENT STATES INTERMITTENT SHORTNESS OF BREATH BUT SHE IS USED TO HAVING SOME SHORTNESS OF BREATH AT BASELINE. PATIENT DENIES ANY ABDOMINAL PAIN, CHEST PAIN, HEADACHE, SYNCOPE, OR NEAR SYNCOPE. PATIENT STATES SHE WENT TO THE URGENT CARE CENTER TODAY BECAUSE SHE IS NOT FEELING WELL AND THEY ENCOURAGED HER TO GO TO THE ED DIRECTLY FROM THE URGENT CARE CENTER BECAUSE OF ONGOING FATIGUE AND NOT FEELING WELL WITH DIZZINESS. HER BLOOD SUGARS ALSO BEEN MILDLY ELEVATED. PATIENT DENIES ANY RECTAL BLEEDING, MELENA, FEVERS, CHILLS, FLANK PAIN, DYSURIA, HEMATURIA, TRAUMA, FALLS, RECENT TRAVEL, SICK CONTACTS, OR RECENT SURGERY.. Review of Systems E m e r g e n c y R o o m R e c o r d Document Name Signed Date Emergency Room Record 08/12/2017 8:59:15 PM EDT Constitutional symptoms: Negative except as documented in HPI. Skin symptoms: Negative except as documented in HPI. Eye symptoms: Negative except as documented in HPI. ENMT symptoms: Negative except as documented in HPI. Respiratory symptoms: Negative except as documented in HPI. Cardiovascular symptoms: Negative except as documented in HPI. Gastrointestinal symptoms: Negative except as documented in HPI. Genitourinary symptoms: Negative except as documented in HPI. Musculoskeletal symptoms: Negative except as documented in HPI. Neurologic symptoms: Negative except as documented in HPI. Psychiatric symptoms: Negative except as documented in HPI. Endocrine symptoms: Negative except as documented in HPI. Additional review of systems information: All other systems reviewed and otherwise negative. Health Status Allergies: Allergic Reactions (Selected) Severity Not Documented Lidocaine- No reactions were documented.. Past Medical/ Family/ Social History Medical history HEALTH HISTORY Appendectomy Patient Cataract surgery Patient Colonoscopy Patient Diabetes mellitus type II Patient Ex-cigarette smoker Patient Hyperlipidemia Patient Hypertension Patient Hypothyroidism Patient Peripheral vascular disease Patient . Social history: Reviewed as documented in chart. Physical Examination Vital Signs Vital Signs 08/12/2017 15:54 EDT Temperature 98.9 DegF Temp Method Temporal Heart Rate 75 bpm Respiratory Rate 18 br/min Inet NIBP Systolic 160 mmHg Inet NIBP Diastolic 43 mmHg LOW E m e r g e n c y R o o m R e c o r d Document Name Signed Date Emergency Room Record 08/12/2017 8:59:15 PM EDT NIBP MAP Calc 82 . Measurements 08/12/2017 15:54 EDT Clinical Height 160 cm Height Method Stated Clinical Weight 70 kg Weight Method Standing Scale BMI 27.34 BSA 1.76 m2 . General: Alert, no acute distress. Skin: Warm, dry, intact, no pallor, no rash. Head: Normocephalic, atraumatic. Neck: Supple, trachea midline, no tenderness. Eye: Pupils are equal, round and reactive to light, extraocular movements are intact, normal conjunctiva. Ears, nose, mouth and throat: Oral mucosa moist, no pharyngeal erythema or exudate. Cardiovascular: Regular rate and rhythm, Normal peripheral perfusion. Respiratory: Lungs are clear to auscultation, respirations are non-labored, breath sounds are equal, Symmetrical chest wall expansion. Gastrointestinal: Soft, Nontender, Non distended. Back: Nontender, Normal range of motion, no step-offs. Musculoskeletal: Normal ROM, normal strength, no swelling. Neurological: Alert and oriented to person, place, time, and situation, No focal neurological deficit observed, CN II-XII intact, normal sensory observed, normal motor observed, normal speech observed, normal coordination observed. Psychiatric: Cooperative, appropriate mood and affect. Medical Decision Making Electrocardiogram: Normal sinus rhythm, EP Interp, NO STEMI, RIGHT BUNDLE BRANCH BLOCK. Results review: Lab results : Laboratory 08/12/2017 17:50 EDT pH Art 7.502 CRIT pCO2 Art 33.7 mmHg LOW pO2 Art 61.0 mmHg LOW BE (Art) 3.0 mEq/L HI HCO3 Art 25.8 mEq/L HI tCO2 Venous 26.8 mmol/L %Sat (Art) 93.2 % LOW pHtc 7.502 NA pCO2tc 33.7 mmHg NA pO2tc 61.0 NA tHGB 12.1 g/dL tHCT 36 NA Oxyhemoglobin 91.1 % LOW Carboxyhemoglobin 2.0 % HI Methemoglobin 0.3 % Sample Type BLDA Sample Site Radial, Right E m e r g e n c y R o o m R e c o r d Document Name Signed Date Emergency Room Record 08/12/2017 8:59:15 PM EDT Jon Test Pos Procurement Personnel Resp Therapist Drawn by [email or web address] Site Held 5 Mins Yes Mode (Art) Room Air Analysis Type BGCOOX PT Temp 98.6 DegC NA 08/12/2017 17:24 EDT WBC 3.2 x10'3/microL LOW RBC 3.78 x10'6/microL LOW Hgb 11.2 g/dL LOW Hct 34.8 % LOW Platelet 127 x10'3/microL LOW MCV 92.1 fL MCH 29.6 pg MCHC 32.2 g/dL LOW RDW 47.3 fL HI MPV 11.3 fL Neutrophils 71.5 % Lymphs 22.5 % Monocytes % 5.1 % Eosinophil % 0.6 % Basophil % 0.3 % Neutro Absolute 2.3 x10'3/microL Lymph Absolute 0.7 x10'3/microL LOW Bollinger Absolute 0.2 x10'3/microL Eos Absolute 0.0 x10'3/microL Basophil Absolute 0.0 x10'3/microL Immature Granulocytes Abs 0.0 x10'3/microL Immature Granulocytes % 0.0 % PT 13.9 second INR 1.1 PTT 32.7 second Sodium 135 mmol/L LOW Potassium 4.3 mmol/L Chloride 96 mmol/L LOW CO2 27 mmol/L AGAP 12 Glucose 308 mg/dL HI BUN 27.0 mg/dL HI Creatinine 0.89 mg/dL Calcium 9.2 mg/dL Est CrCl (CG) 45.9 mL/min GFR (CKD-EPI) 64.0 mL/min/1.73 m2 NA Albumin/Globulin Ratio 0.9 g/dL LOW Albumin Level 3.6 g/dL Total Protein 7.7 g/dL E m e r g e n c y R o o m R e c o r d Document Name Signed Date Emergency Room Record 08/12/2017 8:59:15 PM EDT Globulin 4.1 g/dL HI Magnesium 2.00 mg/dL Phos 1.7 mg/dL LOW Troponin T 0.01 ng/mL NA pro-BNP 1,557 pg/mL HI Alk Phos 101 Units/L AST 41 Inter. Units/L HI ALT(SGPT) 45 Inter. Units/L Bili Total 1.2 mg/dL Lactic Acid Lvl 1.6 mmol/L Hydroxybutyrate 0.3 mmol/L HI TSH 7.87 microInter.Units/mL HI Influenza A Ag Neg for Flu A Influenza B Ag Neg for Flu B Source STEAMFITTER APPRENTICE Swab 08/12/2017 15:58 EDT Glucose Level (POC) 315 mg/dL HI . Radiology results: COMPLETED RADIOLOGY IMAGING STUDIES: CT Head/Brain WO Contrast [Auth (Verified)] (08/12 1750): FINAL IMPRESSION:No mass, hemorrhage or CT evidence for acute infarction.Moderate bilateral white matter microangiopathic ischemic change.Chronic lacune, body of the left caudate nucleus.Dictating Juliana Lambertctated 08/12/2017 17:58Signing Dr Cano,EdLocation [id number] XR Chest 1V [Auth (Verified)] (08/12 1718): FINAL IMPRESSION: Mild CHF/interstitial edema.Dictating Harini Momin 08/12/2017 17:22Signing Lico HurtLocation [id number] . Impression and Plan Diagnosis Hyperglycemia - JJB50-YL R73.9 CHF exacerbation - RFQ65-LI I50.9 Hypoxia - JTQ80-ZS R09.02 Plan Condition: Stable. Disposition: Admit: To Intensive Care Unit, VANCE SYED MD. Counseled: Patient, Family, Regarding diagnosis, Regarding diagnostic results, Regarding treatment plan, Patient indicated understanding of instructions. Notes: PATIENT PRESENTS EMERGENCY DEPARTMENT COMPLAINING OF DIZZINESS, WEAKNESS, FATIGUE AND HYPERGLYCEMIA. PATIENT FOUND TO BE DIABETIC HYPERGLYCEMIA WITHOUT FINDINGS OF DKA. BICARB WITHIN NORMAL LIMITS, PH GREATER THAN 7.44. PATIENT WAS FOUND TO HAVE PULMONARY EDEMA, INTERSTITIAL EDEMA ON CHEST X-RAY WITH AN ELEVATED BNP. TROPONIN NEGATIVE. EKG STABLE. LASIX WAS INITIATED AND CT HEAD WAS NEGATIVE. DISCUSSED FINDINGS WITH PATIENT, LIKELY DUE TO HYPOXIA AND WHICH SHE HAD THIS EVENT OF POOR RECOLLECTION. PATIENT SAT LOW 90 IN THE ED BUT IMPROVED WITH SUPPLEMENTAL O2. PATIENT IS LOW RISK FOR PULMONARY EMBOLUS. NO CHEST PAIN OR ABDOMINAL PAIN AT THIS TIME. PATIENT DENIES E m e r g e n c y R o o m R e c o r d Document Name Signed Date Emergency Room Record 08/12/2017 8:59:15 PM EDT ANY DIARRHEA, RECTAL BLEEDING, OR FEVERS. DISCUSSED WITH FAMILY AND PATIENT BEDSIDE AGREE WITH PLAN FOR ADMISSION. DISCUSSED WITH ADMITTING HOSPITALIST WHO ALSO AGREES WITH PLAN AND PATIENT WAS ADMITTED IN STABLE CONDITION.. [Electronically Signed By:] DO DARRYL HINES DO On, 08/12/2017 08:59 PM 08/12/2017 [facility] Procedure Report DX: BLE celine ication Procedure: Aortogram, BLE Angiogram Anesthesia: 1% Lidocaine 10mL/ Conscious Sedation Complications: None Implants: None Findings: - Patent aortobif graft - occluded right SFA at ostium with geri nst distally via collaterals from profunda and pop - left SFA-pop diseased with mild-mod mu ltifocal stenoses but no occlusion - occluded bilateral RHINA 04/12/2017 [facility] Discharge Summaries Results Value Date Source Discharge Summary %%START C OT [id number] OTDS [id number] %% Occupational Therapy Discharge Summary Patient Name: KASEY IRCKS Date of : 1945 Date of Service: 08/11/2019 05:11 PM Treating Therapist: Ambar Silva OT Provider: [facility] Main OP Provider #: SOC Date: 08/11/2019 -- Patient Information -- Address: [address] [facility], Zip: [place], [place], [address] Occupation: Unknown Gender: Female Carpenter Inspector: VÍCTOR RICKS Referring Physician Name: LEVI SUGGS Referring Physician Number: # of Authorized Visits: 0 Medicaid #: Medicare #: [id number] -- Primary Diagnosis -- Description: Dependence on wheelchair Code: Z99.3 Onset Date: 07/21/2019 -- Visit Information -- Treatments: 1 Missed: 0 Subjective Comments: Patient here for a wheelchair evaluation due to changes in mobility with multiple falls per patient and her . Her states she lists to the left when she walks with or without a walker and has fallen forward and backwards, he states sometimes he is able to catch her but it is happening so often that he cannot always catch her from completely going to the floor. He states that she has fallen out of her chair multiple times, most recent two days ago. He states she has fallen 5 times in the last two weeks. She cannot explain what is making her fall and her states that she starts leaning to the right and then if he doesn't catch her she falls down. The balance challenges happened after she fell and broke her ankle August 03, 2018. Her daughter is present stating that she knows her mother has hit her head on numerous occasions with falls and she is concerned with concussions she may have suffered from due to memory changes she has noticed over the past year. They live in a one story home with a ramp to enter. Her daughter lives about 30 miles away and comes over almost everyday to check on them or help run errands and to be there when she showers. She is getting herself dressed in sitting and he usually supervises her. Her has Parkinsons's and has a difficult time with helping her sometimes. %%PAGE Patient / Caregiver was given proper notification of Discharge: Yes No further Occupational Therapy intervention is indicated at this time in this setting: Yes Patient's physician has been notified that patient has been discharged from Occupational Therapist's care: Yes Reasons for Discharge: wheelchair evaluation only -- Areas of Occupation -- -- Tolerance to IADLs -- Initial: Unable to perform a specific IADL secondary to pain or limitation Goal: Final Level: Unable to perform a specific IADL secondary to pain or limitation Tolerance to IADLs Comments: due to falls and poor balance -- Transfer To/From Bed -- Initial: Wheelchair - Limited - Minimal assistance with cueing Goal: Final Level: Wheelchair - Limited - Minimal assistance with cueing -- Transfer To/From Bed Comments -- assistance for steadying balance during transition from mat to chair due to lower extremity weakness, unsteady on feet -- Transfer To/From Chair -- Initial: Walker - Limited - Contact guard assistance with cueing Goal: Final Level: Walker - Limited - Contact guard assistance with cueing -- Transfer To/From Chair Comments -- unsteady on feet, requires hands on walker to steady and support herself -- Dressing Upper Body -- -- Dressing Upper Body Comments -- performing in sitting with items set out for her to donshe is able to don all clothing from sitting and in standing with close supervision by her or daughter. Daughter is present during shower and she sits to perform. -- Performance Skills and Components -- -- Vital Signs -- Status: At Rest; Position: SittingHeart Rate: 64 BPM; Blood Pressure: 199/80 Lower Extremity Comments: Senior Chair test 4 in 30 seconds and had to use arms to pull/push self up into standing. Struggled on last one to get into standing. -- Pain -- Site: Extremity Pain - Bilateral Lower At Rest: 2/10; With Activity: 6/10 Quality of Pain: Sharp; Exacerbating Factors: Standing up to erect posture; -- Specific Joints -- -- Shoulder Flexion Initial -- Strength Right/Left: 4/4 Active ROM Right/Left: / Passive ROM Right/Left / -- Shoulder Flexion Final -- Strength Right/Left: 4/4 Active ROM Right/Left: / Passive ROM Right/Left / -- Shoulder Extension Initial -- %%PAGE Strength Right/Left: 4-/4- Active ROM Right/Left: / Passive ROM Right/Left: / -- Shoulder Extension Final -- Strength Right/Left: 4-/4- Active ROM Right/Left: / Passive ROM Right/Left: / -- Shoulder Abduction Initial -- Strength Right/Left: 4-/4- Active ROM Right/Left: / Passive ROM Right/Left: / -- Shoulder Abduction Final -- Strength Right/Left: 4-/4- Active ROM Right/Left: / Passive ROM Right/Left: / Shoulder Comments: active range of motion is wfl -- Elbow Flexion Initial -- Strength Right/Left: 4/4 Active ROM Right/Left: / Passive ROM Right/Left: / -- Elbow Flexion Final -- Strength Right/Left: 4/4 Active ROM Right/Left: / Passive ROM Right/Left: / -- Elbow Extension Initial -- Strength Right/Left: 4-/4- Active ROM Right/Left: / Passive ROM Right/Left: / -- Elbow Extension Final -- Strength Right/Left: 4-/4- Active ROM Right/Left: / Passive ROM Right/Left: / -- Forearm Supination Initial -- Strength Right/Left: 4-/4- Active ROM Right/Left: / Passive ROM Right/Left: / -- Forearm Supination Final -- Strength Right/Left: 4-/4- Active ROM Right/Left: / Passive ROM Right/Left: / -- Forearm Pronation Initial -- Strength Right/Left: 4/4 Active ROM Right/Left: / Passive ROM Right/Left: / -- Forearm Pronation Final -- Strength Right/Left: 4/4 Active ROM Right/Left: / Passive ROM Right/Left: / Elbow/Forearm Comments: active range of motion is wfl -- Wrist Flexion Initial -- Strength Right/Left: 4/4 Active ROM Right/Left: / Passive ROM Right/Left: / -- Wrist Flexion Final -- Strength Right/Left: 4/4 Active ROM Right/Left: / Passive ROM Right/Left: / -- Wrist Extension Initial -- Strength Right/Left: 4-/4- Active ROM Right/Left: / Passive ROM Right/Left: / -- Wrist Extension Final -- Strength Right/Left: 4-/4- Active ROM Right/Left: / Passive ROM %%PAGE Right/Left: / -- Wrist Ulnar Deviation Initial -- Strength Right/Left: 4/4 Active ROM Right/Left: / Passive ROM Right/Left: / -- Wrist Ulnar Deviation Final -- Strength Right/Left: 4/4 Active ROM Right/Left: / Passive ROM Right/Left: / -- Wrist Radial Deviation Initial -- Strength Right/Left: 4/4 Active ROM Right/Left: / Passive ROM Right/Left: / -- Wrist Radial Deviation Final -- Strength Right/Left: 4/4 Active ROM Right/Left: / Passive ROM Right/Left: / Wrist Comments: active range of motion is wfl -- Gross Cardiac Catheterization Technologist Strength -- Dynamometer Position #2 Initial Level Right/Left: Dynamometer Position #2 Final Right/Left: 3 Point Pinch Initial Level Right/Left: 09/21 3 Point Pinch Final Right/Left: 09/21 Lateral Pinch Initial Level Right/Left: 08/21 Lateral Pinch Final Right/Left: 08/21 -- Hip Flexion Initial -- Strength Right/Left: 3+/4- Active ROM Right/Left: / Passive ROM Right/Left: / -- Hip Flexion Final -- Strength Right/Left: 3+/4- Active ROM Right/Left: / Passive ROM Right/Left: / -- Hip Extension Initial -- Strength Right/Left: 4-/4- Active ROM Right/Left: / Passive ROM Right/Left: / -- Hip Extension Final -- Strength Right/Left: 4-/4- Active ROM Right/Left: / Passive ROM Right/Left: / Hip Comments: Active range of motion is wfl -- Knee Flexion Initial -- Strength Right/Left: 4-/4- Active ROM Right/Left: wfl/wfl Passive ROM Right/Left: / -- Knee Flexion Final -- Strength Right/Left: 4-/4- Active ROM Right/Left: wfl/wfl Passive ROM Right/Left: / -- Knee Extension Initial -- Strength Right/Left: 4-/4- Active ROM Right/Left: wfl/wfl Passive ROM Right/Left: / -- Knee Extension Final -- Strength Right/Left: 4-/4- Active ROM Right/Left: wfl/wfl Passive ROM Right/Left: / %%PAGE -- Ankle Dorsiflexion Initial -- Strength Right/Left: 3/ Active ROM Right/Left: 5deg/ Passive ROM Right/Left: / -- Ankle Dorsiflexion Final -- Strength Right/Left: 3/ Active ROM Right/Left: 5deg/ Passive ROM Right/Left: / -- Ankle Plantar Flexion Initial -- Strength Right/Left: 3/ Active ROM Right/Left: 50deg/ Passive ROM Right/Left: / -- Ankle Plantar Flexion Final -- Strength Right/Left: 3/ Active ROM Right/Left: 50deg/ Passive ROM Right/Left: / -- Impairment Observations -- Patient is a 74 yo female presenting with generalized weakness more pronounced in her lower extremity. She has been having multiple falls on a weekly basis with increasing difficulty in mobility after a fall in August 2018 that resulted in right ankle fracture. She is using a wheelchair for mobility and short distance rolling walker with close supervision by her and continues to fall. She presents with slow processing time during evaluation with difficulty following conversation although she is oriented. She scored a 7/80 on the LEFS and only 4 sit to business law professor 30 seconds with senior chair test. She presents as unsteady in standing with use of bilateral upper extremity support and only tolerates standing position for >30 seconds before she fatigues and needs to return to sitting. She is able to perform dressing in sitting with close supervision or set up for safety. She has wfl bilateral upper extremity range of motion and 4 to 4- strength. She has functional range of motion in lower extremity with 3+ to 4- strength, left side stronger than right. She has good posture in sitting. She would benefit from continued use of manual wheelchair. She may qualify for a motorized wheelchair when diagnosis is determined upon consulting neurologist. -- Interventions/Plan -- *OT-AILYN CRESPO IQRAMEENAKSHI LOW COMPLEXITY (2017) [id number] Intervention Comments: completed wheelchair evaluation- she presents with impairments that would benefit from a wheelchair to decrease chance of falls and reduce burden for her . It would be highly beneficial for her to consult with neurologist to determine cause of falls that are occurring so frequently. Once she has a diagnosis she should then return if the physician deems a wheelchair necessary and also suggested she return for physical therapy for balance and gait training. At this time she will continue to use manual wheelchair and if a motorized wheelchair is suggestd by neurologist will continue on with request. Signed: Ambar Silva OT State License #: [id number] Date/Time Signed: 08/11/2019 5:12:46 PM %%End 08/11/2019 [facility] Discharge Summary %%START C PT [id number] PTDS [id number] %% Physical Therapy Discharge Summary Patient Name: KASEY RICKS Date of : 1945 Date of Service: 02/07/2019 06:57 AM Treating Therapist: Levi Wood, DPT, CSCS, CKTP, CLT Provider: [facility] Main OP Provider #: SOC Date: 12/21/2018 -- Patient Information -- Address: [address] [place] [address], Zip: [place], [place], [address] Occupation: Unknown Gender: Female Carpenter Inspector: VÍCTOR RAMBO Referring Physician Name: LEVI SUGGS Referring Physician Number: # of Authorized Visits: 0 Medicaid #: Medicare #: [id number] -- Primary Diagnosis -- Description: 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 -- Functional Measures -- Ambulation: Even Terrain Comments: The pt demonstrates ataxic gait and presented to the clinic without any AD; a shuffling gait pattern is used with decreased heel strike -- Goals -- Functional Characteristics and Analysis: Mrs. Ricks attended two treatment sessions and has not returned to PT since 01/11 after many attempts to contact the pt. The pt will be discharged at this time. -- Impairment Goals; Short Term -- 1. The pt will be I with initial HEP to allow for improved household cleaning tolerance in 6 weeks Impairment Goals Comments: The pt did not return for final evaluation of goals. %%PAGE -- Functional Goals; Alf -- 1. The pt will be I with final HEP to al low for improved walking tolerance with increased safety in 12 weeks 2. Increase Greenfield balance score by 15 poi nt to allow for decreased fall risk in 12 weeks 3. Increase lower extremity strength to previously listed measurements to improve walking tolerance in 12 weeks Patient Goal(s) and/or Goal Comments: The pt did not return for final evaluation of goals. -- Functional Limitation Reporting -- -- Mobility: Walking and Moving Around - - G8978 - Mobility: walking and moving around functional limitation, current status, at therapy episode outset and at reporting intervals Current Status: CL - At least 60 percent but less than 80 percent impaired, limited or restricted G8979 - Mobility: walking and moving around functional limitation, projected goal status, at therapy episode outset, at reporting intervals, and at discharge or to end reporting Goal Status: CI - At least 1 percent but less than 20 percent impaired, limited or restricted G8980 - Mobility: walking and moving around functional limitation, discharge status, at discharge from therapy or to end reporting Discharge Status: CL - At least 60 percent but less than 80 percent impaired, limited or restricted Functional Limitation Reporting Comments: In my professional judgment, and based on the patient?s therapy evaluation, I am reporting Functional Limitation Reporting category G8978. Severity modifiers were determined by my clinical judgment and use of the Greenfield and LEFS. -- Physical Findings -- -- Pain -- Additional Comments on Pain: The pt reports 5/10 pain in the right ankle at this time. -- Specific Joints -- -- Hip Flexion Initial -- Strength Right/Left: 3+/4- Active ROM Right/Left: / Passive ROM Right/Left: / -- Hip Flexion Final -- Strength Right/Left: 3+/4- Active ROM Right/Left: / Passive ROM Right/Left: / -- Hip Abduction Initial -- Strength Right/Left: 4-/4- Active ROM Right/Left: / Passive ROM Right/Left: / -- Hip Abduction Final -- Strength Right/Left: 4-/4- Active ROM Right/Left: / Passive ROM Right/Left: / -- Hip Adduction Initial -- Strength Right/Left: 4-/4- Active ROM Right/Left: / Passive ROM Right/Left: / %%PAGE -- Hip Adduction Final -- Strength Right/Left: 4-/4- Active ROM Right/Left: / Passive ROM Right/Left: / -- Knee Flexion Initial -- Strength Right/Left: 3+/4- Active ROM Right/Left: / Passive ROM Right/Left: / -- Knee Flexion Final -- Strength Right/Left: 3+/4- Active ROM Right/Left: / Passive ROM Right/Left: / -- Knee Extension Initial -- Strength Right/Left: 3+/4- Active ROM Right/Left: / Passive ROM Right/Left: / -- Knee Extension Final -- Strength Right/Left: 3+/4- Active ROM Right/Left: / Passive ROM Right/Left: / -- Ankle Dorsiflexion Initial -- Strength Right/Left: 3+/4- Active ROM Right/Left: / Passive ROM Right/Left: / -- Ankle Dorsiflexion Final -- Strength Right/Left: 3+/4- Active ROM Right/Left: / Passive ROM Right/Left: / -- Ankle Plantar Flexion Initial -- Strength Right/Left: 4/4 Active ROM Right/Left: / Passive ROM Right/Left: / -- Ankle Plantar Flexion Final -- Strength Right/Left: 4/4 Active ROM Right/Left: / Passive ROM Right/Left: / -- Ankle Inversion Initial -- Strength Right/Left: 3+/4 Active ROM Right/Left: / Passive ROM Right/Left: / -- Ankle Inversion Final -- Strength Right/Left: 3+/4 Active ROM Right/Left: / Passive ROM Right/Left: / -- Ankle Eversion Initial -- Strength Right/Left: 3+/4 Active ROM Right/Left: / Passive ROM Right/Left: / -- Ankle Eversion Final -- Strength Right/Left: 3+/4 Active ROM Right/Left: / Passive ROM Right/Left: / -- Interventions/Plan -- *PT-PHY THPY EVAL LOW COMPLEXITY (2017) 84696 PT-BALANCE and COORD EA 15M 97634 PT-GAIT TRAINING EA 15M 72405 PT-MANUAL THPY EA 15M 68179 PT-SELF/HOME TRAIN EA 15M 88096 PT-THER EXERCISE EA 15M 69341 Intervention Comments: 18807- balance training was initiated in the bars today. Increased difficulty was noted when standing on the blue foam with eyes closed so the exercise was reverted to firm surface with eyes closed. TC needed to prevent posterior loss of balance when standing with feet together and eyes closed. %%PAGE Signed: Levi Wood, DPT, CSCS, CKTP, CLT State License #: [id number] Date/Time Signed: 02/07/2019 6:59:39 AM %%End 02/07/2019 [facility] Discharge Summary Date of Admi ssion 08/12/18 Date of Discharge 08/15/18 Reason for Hospitalization PROCEDURE: 08/12/[address] Diaz 1. Right femoral-popliteal bypass using 6 mm PTFE from the maya of the right aortobifemoral graft down to the above-knee popliteal. 2. Redo groin. The patient has status post aortobifemoral graft. Procedure 08/13/[address] Michaud Open reduction internal fixation right bimalleolar ankle fracture Discharge Diagnosis Visit Diagnoses Acute blood loss as cause of postoperative anemia D62 Bimalleolar fracture of right ankle S82.841A PAD (peripheral artery disease) I73.9 PROBLEM LIST: PAD (peripheral artery disease) Diabetes Emphysema/COPD Dyslipidemia Carotid artery disease Thyroid disease Pulmonary nodule NED (renal artery stenosis) Superior mesenteric artery stenosis Celiac artery stenosis History of aorto-femoral bypass H/O: pneumonia Hx of appendectomy H/O: CVA (cerebrovascular accident) Orders: HYDROmorphone, 2 mg, TAB, PO, Q6H (Every 6 hours), PRN Severe Pain, 08/14/18 16:09:00 EST HYDROmorphone, 1 TAB, PO, Q6H (Every 6 hours), PRN Severe Pain, # 6 TAB, 0 Refill(s), # 6 tabs acute pain exception lisinopril, 20 mg, TAB, PO, Daily, 08/13/18 9:00:00 EDT Additional Discharge Activity Instructions Consult Home Health Discharge (CPOE) Discharge Diet Discharge Instructions Discharge Literature Provided Discharge Resume Activity Discharge Wound Care Instructions Symptoms to Report to Your Physician Hospital Course Mrs ricks is a 73 year old white female who was admitted for urgent R fem pop bypass following RLE fx with a fall. She has recovered in the CVICU and then went for ORIF RLE by Dr Lr. Pt is ready for D/C today by Dr Diaz and DR Lr and is NWB status. She has crutches and wheelchair at home for activity. Pt has chronic pain meds at home according to Tamela montenegro, but requests few Dilaudid for Acute post op pain. 6 tabs 2 mg Dilaudid for 3 day Acute pain has been given. Shore has been discontinued and is voiding prior to d/c. Pt will see Dr diaz in [address] lr as followup. Pt understands d/c instructions and is aware MD services are available 24 hours/day 7 days/week for any problems or questions she may have during this post op period. Objective Vitals and Measurements (Last Charted) T: 98.3 F TMIN: 97.6 F TMAX: 98.7 F HR: 83 RR: 20 BP: 112/54 SpO2: 93% Physical Exam Dry weight 63.1 Kg General: Alert and oriented. HEENT: Normocephalic. Neck: No jugular venous distention. Respiratory: Lungs are decreased in the bases clear above bilaterally, Stable on RA Cardiovascular: SR No murmur, No JVD, No Rub Gastrointestinal: Soft, nontender, nondistended, bowel sounds + BM - Pt haritha po diet Genitourinary: No bladder distention Shore removed Voiding Musculoskeletal: Normal range of motion, = strength, No tenderness. Integumentary: Warm, Dry, Intact. Incision: Benign R leg incisions R Groin R splint RLE from ORIF. + mobile toes warm and + sensation + doppler Neurologic: Alert, Oriented, no focal deficits Psychiatric: Cooperative, Appropriate mood and affect. Lab Results LABORATORY RESULTS CBC and Plt w/o Diff WBC 4.8 x10'3/microL 08/15/18 043 RBC 2.94 x10'6/microL 08/15/18 0430 Hgb 8.5 g/dL 08/15/18 043 Hct 27.3 % 08/15/18 043 Platelet 169 x10'3/microL 08/15/18 0430 Prothrombin Time with INR INR No results in last 24hrs PTT_INR No results in last 24hrs PTT PTT No results in last 24hrs Basic Metabolic Panel Sodium 139 mmol/L 08/15/18 0430 Potassium 4.8 mmol/L 08/15/18 043 Chloride 103 mmol/L 08/15/18 0430 CO2 22 mmol/L 08/15/18 0430 Glucose 137 mg/dL 08/15/18 0430 BUN 28 mg/dL 08/15/18 043 Creatinine 0.91 mg/dL 08/15/18 043 Calcium 9.2 mg/dL 08/15/18 043 Radiology (Past 36 Hrs) COMPLETED RADIOLOGY IMAGING STUDIES: XR Ankle 2V RT [Auth (Verified)] (08/14 153): Neither Impression nor Opinion Found XR Ankle 2V RT [Auth (Verified)] (08/14 151): FINAL IMPRESSION: Redemonstrated acute bimalleolar fracture, with slightly increased displacement of fracture fragments since 08/03/2018.Dictating Mateo Colemanctated 08/14/2018 01:45Signing Dr. Mendiola,Location: [facility] Transition Plan Discharge Instruction(s): Symptom to Report: Bleeding, not controlled by pressure, Dizziness or lightheadedness, Fever greater than 100.4, Nausea/vomiting, Odor/drainage at incision site, Pain uncontrolled by medications, Shortness of breath, Unable to take medications, Weight gain, Fever greater than 101 Symptoms to Report Special Instructions: Mild edema normal elevate legs while sitting Discharge to: Home Patient Condition at Discharge: Stable Diet: Heart healthy cardiac(Low NA, Fat, Chol) Resume Activities: Other, see Special Instructions Discharge Resume Activity Special Instructions: No Heavy Lifting > 10 lbs Driving instructions: No driving Additional Wound Care Instructions: You may shower with mild soap and water blot dry with clean with clean bath towel. Special Instructions: You may shower with mild soap and water blot dry with clean with clean bath towel. Discharge Literature Provided: Disease/Procedure specific, Medications, Other, see Special Instructions, Postoperative instructions Follow Up Location: TODD DIAZ Address: [address] [place] [address], [address] Follow up by: August 24, 2018 Follow up within: Details: Location: [place], [phone] [place] [phone] Address: Phone: Follow up by: Follow up within: Details: This [employer] is processing your commode for home delivery. thank you. Location: [facility] [phone] [facility] [address] Address: Phone: Follow up by: Follow up in: 1 day Details: If you have not heard from the agency by noon two days after discharge, please call the office. Location: LAUREN GODOY PA-C Address: [address] [place] [address], [address] Follow up by: Follow up in: 4 days Details: Location: [facility]ITO [facility]HAUD Address: [address] [place] [address], [address] Follow up by: Follow up in: 1 day Details: call office for a appt on wednesday08/19/18 Pending Test Results Pending Results Flexible Crossmatch - Status: InProcess 08/12/2018 10:14:00 Discharge Meds Discharge Medication List Medication amLODIPine(amLODIPine 10 mg oral tablet)(amLODIPine) 10 mg 1 TAB By Mouth DAILY aspirin(aspirin 81 mg oral tablet)(aspirin) 81 mg 1 TAB By Mouth DAILY atorvastatin(atorvastatin 10 mg oral tablet)(atorvastatin) 10 mg 1 TAB By Mouth DAILY cilostazol(cilostazol 100 mg oral tablet)(cilostazol) 100 mg 1 TAB By Mouth 2 TIMES A DAY clopidogrel(clopidogrel 75 mg oral tablet)(clopidogrel) 75 mg 1 TAB By Mouth DAILY glipiZIDE(glipiZIDE 5 mg oral tablet)(glipiZIDE) 5 mg 1 TAB By Mouth 2 TIMES A DAY hydroCHLOROthiazide(hydroCHLOROthiazide 12.5 mg oral capsule)(hydroCHLOROthiazide) 12.5 mg 1 CAP By Mouth DAILY HYDROmorphone(HYDROmorphone 2 mg oral tablet)(HYDROmorphone) 2 mg 1 TAB By Mouth Every 6 hours For 2 day(s) PRN Severe Pain levothyroxine(levothyroxine 125 mcg (0.125 mg) oral capsule)(levothyroxine) See Instructions Comment(s): 1 CAP PO Daily lisinopril(lisinopril 20 mg oral tablet)(lisinopril) 20 mg 1 TAB By Mouth DAILY metFORMIN(metFORMIN 500 mg oral tablet)(metFORMIN) 500 mg 1 TAB By Mouth 2 TIMES A DAY metoprolol(Metoprolol Tartrate 50 mg oral tablet)(metoprolol) 50 mg 1 TAB By Mouth 2 TIMES A DAY nitroglycerin(nitroglycerin 0.4 mg sublingual tablet)(nitroglycerin) 0.4 mg 1 TAB Under the Tongue Every 5 minutes PRN chest pain pantoprazole(pantoprazole 40 mg oral delayed release tablet)(pantoprazole) 40 mg 1 TAB By Mouth DAILY [1] S Progress / SOAP Note; JOE MOMIN APRN 08/14/2018 13:43 EST 08/15/2018 [facility] Discharge Summary Date of Admi ssion 07/18/2018 Date of Discharge 07/19/2018 Reason for Hospitalization Chest pain Discharge Diagnosis Atypical chest pain, resolved Hypothyroid PD Diabetes mellitus type 2 Hypertension, uncontrolled Dyslipidemia History of lacunar CVA Chronic COPD/emphysema Hospital Course Ms. Ricks is 73-year-old female with past medical history significant for extensive PAD with history of aortobifemoral bypass, carotid disease, history of CVA, COPD with pulmonary nodule, DM, HTN, dyslipidemia,and thyroid disease who presented to the emergency room complaining of chronic chest pain. Patient had a recent stress test in radiology transcriptionist's office done a few days ago. Patient was treated with nitropaste given aspirin, statin was found have high blood pressure on admission which was controlled with multiple blood pressure medications. Patient was seen by her radiology transcriptionist for stress test was reviewed she was cleared for discharge she was asymptomatic. Her TSH found to be low her to levothyroxine dose was slightly decreased. Patient was advised to stay overnight further monitoring for blood pressure however she wanted to go home, a blood pressure medications were adjusted, she was advised to measure blood pressure daily write them down and follow up with her PCP in 1-2 days. Patient is to follow up for peripheral vascular disease as planned outpatient. She is also advised to follow up to have her thyroid levels 3 checked in 4-6 weeks as well as follow-up nerve pulmonary nodule that was found in the right lower lobe last August and a CT scan with her PCP. Patient and understood and agreed with the plan. There were given appropriate discharge instructions med ications and follow ups. Objective Vitals and Measurements (Last Charted) T: 98.0 F TMIN: 97.6 F TMAX: 98.0 F HR: 67 RR: 19 BP: 135/56 SpO2: 93% WT: 67.9 kg BMI: 26.86 Physical Exam General: Alert and oriented. Eye: JOAN, EOMI HENT: Normocephalic, atraumatic Neck: Supple, Non-tender Respiratory: Lungs are clear to auscultation bilaterally, No wheezing, rales or rhonchi, respirations are non-labored. Cardiovascular: Normal rate, Regular rhythm, No murmur, no lower extremity edema bilaterally Gastrointestinal: Soft, nontender, nondistended, normal bowel sounds. Genitourinary: No costovertebral angle tenderness. No bladder distention Musculoskeletal: Normal range of motion, Normal strength, No tenderness. Integumentary: Warm, Dry, Intact. Neurologic: Alert, Oriented. Psychiatric: Cooperative, Appropriate mood and affect. Lab Results LABORATORY RESULTS CBC and Plt w/o Diff WBC 3.8 x10'3/microL 07/19/18 0319 RBC 3.63 x10'6/microL 07/19/18 0319 Hgb 10.7 g/dL 07/19/18 1206 Hct 33.4 % 07/19/18 1206 Platelet 144 x10'3/microL 07/19/18 0319 Prothrombin Time with INR INR 1.0 07/18/181914 PT 12.8 second 07/18/181914 PTT PTT No results in last 24hrs Basic Metabolic Panel Sodium 145 mmol/L 07/19/18 0319 Potassium 4.6 mmol/L 07/19/18 0319 Chloride 108 mmol/L 07/19/18 0319 CO2 25 mmol/L 07/19/18 0319 Glucose Level ( 127 mg/dL 07/19/18 1153 BUN 23 mg/dL 07/19/18 0319 Creatinine 0.70 mg/dL 07/19/18 0319 Calcium 9.4 mg/dL 07/19/18 0319 Radiology (Past 36 Hrs) COMPLETED RADIOLOGY IMAGING STUDIES: XR Chest 1V [Auth (Verified)] (07/18 2017): FINAL IMPRESSION: Emphysematous changes. Cardiomegaly. No active pulmonary disease.Dictating Huey Hernandezictated 07/18/2018 20:15Signing Dr. Grady,Location: [place] [address] Transition Plan Discharge Instruction(s): Discharge to: Home Patient Condition at Discharge: Improved Diet: Low sodium (2 gm), Heart healthy cardiac(Low NA, Fat, Chol) Resume Activities: As tolerated Follow Up Location: JOCY JERONIMO DO Address: [address] [place] [address], [address] Follow up by: Follow up in: 2 weeks Details: Location: LEVI SUGGS Address: [address] [place] [address], [address], [place], [address] Follow up by: July 21, 2018 Follow up within: Details: Also follow up on thyroid levels, recheck TSH, free T4 and free T3 Pending Test Results Pending Results CAR Transthoracic Echo w/Colorflow/Doppl - Status: Ordered 07/18/2018 21:27:58 US Carotid Duplex Derrell - Status: Ordered 07/18/2018 21:27:58 Discharge Meds Discharge Medication List Medication amLODIPine(amLODIPine 10 mg oral tablet)(amLODIPine) 10 mg 1 TAB By Mouth DAILY For 30 day(s) Comment(s): Hold for systolic blood pressure less than 110 aspirin(aspirin 81 mg oral tablet, chewable)(aspirin) 81 mg 1 TAB By Mouth DAILY For 30 day(s) atorvastatin(atorvastatin 10 mg oral tablet)(atorvastatin) 10 mg 1 TAB By Mouth DAILY glipiZIDE(glipiZIDE 5 mg oral tablet)(glipiZIDE) 5 mg 1 TAB By Mouth DAILY hydroCHLOROthiazide(hydroCHLOROthiazide 12.5 mg oral capsule)(hydroCHLOROthiazide) 12.5 mg 1 CAP By Mouth DAILY For 30 day(s) Comment(s): Hold for systolic blood pressure less than 110 levothyroxine(levothyroxine 125 mcg (0.125 mg) oral capsule)(levothyroxine) 125 mcg 1 CAP By Mouth DAILY For 30 day(s) lisinopril(lisinopril 20 mg oral tablet)(lisinopril) 20 mg 1 TAB By Mouth 2 TIMES A DAY For 30 day(s) Comment(s): Hold for systolic blood pressure less than 100 metFORMIN(metFORMIN 500 mg oral tablet)(metFORMIN) 500 mg 1 TAB By Mouth 2 TIMES A DAY metoprolol(Metoprolol Tartrate 50 mg oral tablet)(metoprolol) 50 mg 1 TAB By Mouth DAILY Comment(s): Hold for systolic blood pressure less than 100 or heart rate less than 50 nitroglycerin(nitroglycerin 0.4 mg sublingual tablet)(nitroglycerin) 0.4 mg 1 TAB Under the Tongue EVERY 5 MINUTES TIMES 3 DOSES For 30 day(s) PRN Chest Pain raNITIdine(raNITIdine 75 mg oral tablet)(raNITIdine) 75 mg 1 TAB By Mouth DAILY 07/19/2018 [facility] Discharge Summary Date of Admi ssion 08/12/2017 Date of Discharge 08/14/2017 Reason for Hospitalization Shortness of breath, weakness Discharge Diagnosis Acute hypoxic respiratory failure -resolved, possibly combination mild diastolic Congestive Heart Failure and mild COPD Possible mild diastolic Congestive Heart Failure exacerbation -echo with preserved EF Acute ischemic CVA -MRI with acute lacunar infarct in the left subinsular region Left carotid artery stenosis of 50-69 percent Incidental finding of pulmonary nodule -advised patient for outpatient follow-up Hypothyroidism Possibly urinary tract infection Diabetes mellitus type 2- -uncontrolled, hemoglobin A1c of 10.3 hx of PAD Hypertension hx of tobacco abuse, quit 6yrs ago Hospital Course Consultants on the case: Neurology and cardiology Complete HPI please refer to admission note. Patient is a very pleasant 72-year-old female with history of peripheral arterial disease, hypertension, remote history of tobacco abuse, type 2 diabetes mellitus non-insulin dependent who presented initially with some shortness of breath and also had significant weakness and a transient altered level of consciousness at home. She did not pass out but just felt really weak and felt like she could not move her legs and was very short of breath. On ABG on admission patient was found to be hypoxic on room air and was given Lasix with complete resolution of hypoxia. The hypoxia was thought to be possibly a mild diastolic Congestive Heart Failure along with mild COPD exacerbation which resolved very quickly. Patient had echocardiogram that showed normal EF and diastolic dysfunction. CTA of the chest was negative for PE and showed a small right middle lobe pulmonary nodule. Patient was advised to follow up with her primary care physician to have a repeat CT scan in 6-12 months that she does have history of smoking and she verbalized understanding. She has currently no evidence of fluid overload and was evaluated by cardiology did not recommend any further testing. Patient was evaluated for home oxygen needs and she did not qualify. Due to the transient confusion and amnesia patient had neurologic workup that included CT of the head. The CT was negative but MRI was obtained that showed a small acute lacunar infarct in the left subinsular region. Further workup showed 50-69 percent stenosis in the left carotid artery. Neurology evaluated the patient and recommended aspirin and Plavix for 6 weeks and then Plavix and definitely. Patient is also on statin and she was counseled at length on diet changes and lifestyle modifications to control her diabetes, blood pressure and cholesterol and verbalized understanding. Her diabetes was uncontrolled with hemoglobin A1c of 10.3 patient again was counseled lifestyle modifications, diet and exercise and was advised to follow up with her primary care physician regarding started on insulin and she is currently hesitant to start on insulin. We did increase her metformin and her glipizide doses and she was advised to hold off on taking metformin for couple more days as she had contrast during the hospitalization. Patient currently has no weakness whatsoever and no memory issues. She was seen by Physical therapy and she ambulated without any difficulty. She will need to follow up with Neurology and will need repeat carotid artery ultrasound per Neurology recommendations within 6 months. Patient has been advised of all these instructions. Of note her TSH was found to be elevated at 7 and her levothyroxine dose was increased to 150 micrograms . Patient also was found to have evidence of a UTI and will be discharged on Ceftin for 5 days. Patient was advised to follow up with her primary care physician. At time of discharge she had no other complaints and is eager to go home today for grandson's wedding. Hospital course and discharge plan was explained to patient in detail and she verbalized understanding and agreement of plan Total time preparing this discharge was greater than 35 minutes Objective Vitals and Measurements (Last Charted) T: 97.6 F TMIN: 97.5 F TMAX: 97.7 F HR: 69 RR: 18 BP: 138/56 SpO2: 98% Physical Exam General: Alert and oriented, No acute distress. _ HENT: Normocephalic, Oral mucosa is moist. _ Neck: Supple, Non-tender. Trachea midline _ Respiratory: Lungs are clear to auscultation, Respirations are non- labored. _ Cardiovascular: Normal rate, Regular rhythm, No edema. _ Gastrointestinal: Soft, Non-tender, No organomegaly. _ Musculoskeletal: Normal range of motion, Normal strength, No TTP, no obvious deformity. _ Integumentary: Warm, Dry. _ Neurologic: Alert, Oriented, No focal deficits. _ Psychiatric: Cooperative, Appropriate mood and affect. _ Lab Results LABORATORY RESULTS CBC and Plt w/o Diff WBC 3.9 x10'3/microL 08/14/17 06 RBC 3.66 x10'6/microL 08/14/17 06 Hgb 10.8 g/dL 08/14/17 06 Hct 33.5 % 08/14/17 06 Platelet 150 x10'3/microL 08/14/17 06 Prothrombin Time with INR INR No results in last 24hrs PTT_INR No results in last 24hrs PTT PTT No results in last 24hrs Basic Metabolic Panel Sodium 135 mmol/L 08/14/17 0624 Potassium 4.3 mmol/L 08/14/17 0624 Chloride 98 mmol/L 08/14/17 0624 CO2 25 mmol/L 08/14/17 0624 Glucose 295 mg/dL 08/14/17 0624 BUN 29.0 mg/dL 08/14/17 0624 Creatinine 0.83 mg/dL 08/14/17 06 Calcium 8.9 mg/dL 08/14/17 06 Radiology (Past 36 Hrs) COMPLETED RADIOLOGY IMAGING STUDIES: US Carotid Duplex Derrell [Auth (Verified)] (08/13 1120): FINAL IMPRESSION: Extensive plaque formation with calcifications bilaterally.Doppler evaluation indicates 50-69% stenosis left internal carotid artery.Dictating Dony Cintronated 08/13/2017 11:25Signing Kishan Joecation [id number] Discharge Instruction(s): Discharge to: Home Patient Condition at Discharge: Improved Diet: Heart healthy cardiac(Low NA, Fat, Chol), Low sodium (2 gm), Con Carb (60-75 g carb/meal) Additional Discharge Instructions: please follow up with your primary care physician to have repeat CT of chest in 6 months for lung nodule. Please inform your physician of medication changesyou will need repeat Ultrasound of carotid arteries in 6 months Follow Up Primary care physician Neurology Pending Test Results Pending Results [facility]38[facility]43 [facility]: [facility] 19:38:43 Discharge Meds Discharge Medication List Medication aspirin(aspirin 325 mg oral delayed release tablet)(aspirin) 325 mg 1 TAB By Mouth DAILY atorvastatin(atorvastatin 10 mg oral tablet)(atorvastatin) 10 mg 1 TAB By Mouth DAILY cefuroxime(Ceftin 500 mg oral tablet)(cefuroxime) 500 mg 1 TAB By Mouth 2 TIMES A DAY For 5 day(s) clopidogrel(clopidogrel 75 mg oral tablet)(clopidogrel) 75 mg 1 TAB By Mouth DAILY glipiZIDE(glipiZIDE 10 mg oral tablet)(glipiZIDE) 10 mg 1 TAB By Mouth 2 TIMES A DAY levothyroxine(levothyroxine 150 mcg (0.15 mg) oral tablet)(levothyroxine) 150 mcg 1 TAB By Mouth DAILY losartan(losartan 100 mg oral tablet)(losartan) 100 mg 1 TAB By Mouth DAILY metFORMIN(metFORMIN 500 mg oral tablet)(metFORMIN) 500 mg 1 TAB By Mouth 2 TIMES A DAY metoprolol(Metoprolol Tartrate 50 mg oral tablet)(metoprolol) 50 mg 1 TAB By Mouth 2 TIMES A DAY [1] AHS Progress / SOAP Note; MARK PERALTA, FATLIND 08/13/2017 17:16 EDT 08/14/2017 [facility] Discharge Summary %%START C PT [id number] PTDS [id number] %% Physical Therapy Discharge Summary Patient Name: KASEY RICKS Date of : 1945 Date of Service: 03/11/2017 04:25 PM Treating Therapist: Janet Pope, PT, CLT Provider: [facility] Main OP Provider #: SOC Date: 03/09/2017 -- Patient Information -- Address: [address] [place] [address], Zip: [place], [place], [address] Occupation: Retired Gender: Female Carpenter Inspector: VÍCTOR RAMBO Referring Physician Name: LEVI SUGGS Referring Physician Number: # of Authorized Visits: 0 Medicaid #: Medicare #: [id number] -- Primary Diagnosis -- Description: Benign paroxysmal vertigo, unspecified ear Code: H81.10 Onset Date: 02/26/2017 -- Visit Information -- Treatments: 2 Missed: 0 Subjective Comments: Pt has no complaints today. She thinks her circulation is the cause of her dizziness. Pt's present during session. discussed w/ pt BPPV negative and standing balance activities w/ good results. pt states she would prefer not to continue with this and will inquire re use of gym w/ silver sneakers. Are you being threatened or hurt by anyone? No Patient / Caregiver was given proper notification of Discharge? Yes No further Physical Therapy intervention is indicated at this time in this setting? Yes Patient's Physician has been notified that patient has been discharged from Physical Therapist's care? Yes Reasons for Discharge: pt's choice. -- Functional Measures -- Ambulation: Even Terrain Comments: independent w/o AD.03/11: unchanged. -- Goals -- %%PAGE Functional Characteristics and Analysis: Ms. Ricks returns to the clinic after evaluation for further assessment in balance which she did very well, no Loss of balance observed when standing on firm and form, feet apart and together, eyes open and closed, head movement up/down and side/side.Pt still convinced that her condition is primarily due to her aortic problems and expressed preference not to continue PT for vestibular rehab. Pt's deconditioned state will affect her balance becky when arterial circulation is much impaired. Pt and spouse are looking at gym membership.For BPPV, she was given a handout showing Semont-Liberatory maneuver w/ written instructions, steps reviewed by LIGHTING FIXTURES DECORATOR.At this point, pt requests to be discharged. -- Impairment Goals; Short Term -- 1. pt to verbalize good understanding of vestibular rehab. - Met 2. pt to verbalize understanding of BPPV and demonstrate self treatment for BPPV using Semont-Liberatory technique. - Met 3. assess static and dynamic balance for baseline. - Met -- Functional Goals; Alf -- 1. improve DHI by at least 12 points as indication of improved sensation of stability and functional mobility. - Not Met 2. pt and spouse to demonstrate self ariadna atment for BPPV using Semont-Liberatory maneuver. - Not Met 3. improve pt's ability to lean forward and get up w/o triggering symptoms of room spinning or queasiness. - Not Met -- Functional Limitation Reporting -- -- Mobility: Walking and Moving Around - - G8978 - Mobility: walking and moving around functional limitation, current status, at therapy episode outset and at reporting intervals Current Status: CJ - At least 20 percent but less than 40 percent impaired, limited or restricted G8979 - Mobility: walking and moving around functional limitation, projected goal status, at therapy episode outset, at reporting intervals, and at discharge or to end reporting Goal Status: CI - At least 1 percent but less than 20 percent impaired, limited or restricted G8980 - Mobility: walking and moving around functional limitation, discharge status, at discharge from therapy or to end reporting Discharge Status: CJ - At least 20 percent but less than 40 percent impaired, limited or restricted Functional Limitation Reporting Comments: In my professional judgment, and based on the patient?s therapy discharge summary, I am reporting Functional Limitation Reporting category__G8978__. Severity modifiers were determined by my clinical judgment/ pt's subjective report/ use of the functional tool__DHI__. IE: 38 (38% disability).D/C: as above. -- Physical Findings -- -- Vestibular Symptoms -- Primary Complaints: Dysequilibrium; Nature Of Onset: 1 yr ago, fell over bushes d/t world spinning. Exacerbating Factors: Bending over; Exacerbating Factor Comments: not triggered today in clinic. Relieving Factor Comments: avoiding forward bending positions %%PAGE Concurrent Complaints: Hearing Loss-Left; Tinnitus-Left; Falls or Near Falls; Poor Concentration; Concurrent Complaint Comments: long standing h/o L ear hearing loss (possible perforated ear drum though pt reports she can hear some in L ear). pt reports BLE leg weakness influence some of her answers. -- Oculomotor Function -- Gaze Holding Nystagmus Vision Suppressed: Negative Smooth Pursuits/VOR: Normal Head Shaking Nystagmus: Normal VOR Cancellation: Normal Positional Testing Comments: semont-liberatory to assess for R and L posterior canalithiasis, pt reports feeling queasy only for few seconds in head down position. nystagmus not overt as pt cannot keep eyes open even if held d/t dryness and would lose focus. Symptoms slightly worse on L.03/11: pt given handout for maneuver in case BPPV triggered. -- BP high. per spouse pt didn't have lo w BP issues, always on high side. no h/o stroke affecting posterior cerebral distribution. -- -- Impairment Observations -- - dysequilibrium- weakness in legs- impa ired balance- impaired circulation. -- Interventions/Plan -- *PT-PHY THPY EVAL HIGH COMPLEXITY (2017) 58633 PT-BALANCE and COORD EA 15M 78357 PT-SELF/HOME TRAIN EA 15M 63064 PT-DYNAMIC ACTVTY EA 15M 98463 PT-THER EXERCISE EA 15M 92519 Signed: Janet Pope PT, CLT State License #: [id number] Date/Time Signed: 03/11/2017 4:33:27 PM %%End 03/11/2017 [facility] History and Physicals Results Value Date Source History and Physical [address] [address]- ADM RPT - History and Physical ESO DOCUMENT NAME: History and Physical SERVICE DATE/TIME: 04/27/2019 08:50 EDT RESULT STATUS: Auth (Verified) PERFORM INFORMATION: ERIC ALVARADO MD (04/27/2019 08:51 EDT) SIGN INFORMATION: ERIC ALVARADO MD (04/27/2019 08:51 EDT) Admission H&P Update/ Moderate Sedation Evaluation Patient: KASEY RICKS Age: 74 years Sex: Female : 1945 Associated Diagnoses: None Author: ERIC ALVARADO MD Admission Information "I have reviewed History and Physical and re-examined patient" : This patient's history and physical has been reviewed, and the patient re-examined by the treating physician. Listed below are the changes and/or updates to the history and physical: Okay for Left lower extremity angiogram with anesthesia. , Risks and options for procedure and anesthesia have been discussed with patient. Informed consent has been obtained. Plan of Anesthesia: sedation/analgesia Mallampati Class: 2 ASA Classification: 3. [Electronically Signed By:] ERIC CLARK MD On, 04/27/2019 08:51 AM 04/27/2019 [facility] History and Physical DATE OF A DMISSION: 07/18/2018 DATE: 07/18/2018 ADMITTING PHYSICIAN: JANELLE HYLTON MD TIME: 2049 hours. DIAGNOSTIC IMPRESSION: 1. Angina. 2. Elevated blood pressure. 3. Abdominal pain. 4. Diabetes mellitus. 5. Peripheral vascular disease. For more detailed H and P, see the note of ANA Wheeler with whom we evaluated the case, examined the patient, concurrent plan of therapy. DIAGNOSTIC IMPRESSION: Elevated blood pressure. Capoten and hydralazine have been started, reconciliation of medications as the patient, who has chronic history of peripheral vascular disease and hypertension has continued to show signs of mild heart failure associated with leg swelling, shortness of breath. she also has conjoint process of peripheral vascular disease. Metoprolol, losartan, glipizide medications at home will be exchanged for Capoten with a more accurate control of blood pressure. Hydralazine p.r.n. PPI empirically and consultation with Cardiology telephone mechanic, as the patient has seen Dr. Maxx Dr. is on- call. Multimodal approach to control glucose level. Diagnosis as above. RAR/[id number] /[id number] 07/19/2018 [facility] History and Physical Date of A dmission 07/18/2018 Chief Complaint epigastric chest pain for several weeks. pt had heart cath on wednesday with dr. Garciabut was not given any results. History of Present Illness Ms. Ricks is 73-year-old female with past medical history significant for extensive PAD with history of aortobifemoral bypass, carotid disease, history of CVA, COPD with pulmonary nodule, DM, HTN, dyslipidemia,and thyroid disease who presented to the emergency room complaining of pain that starts in her left elbow goes to her left shoulder and then substernally described as a burning sensation that is atypical happening at both rest and with activity that last up to 30 min at a time relieved by pain medications without associated symptoms of dyspnea, nausea, vomiting, or diaphoresis. She states that she for the past 3 weeks she has been having epigastric discomfort and burning associated with lower extremity edema, decreased urine output, severe claudication symptoms, dizziness without syncope, nonproductive cough as well as chronic diarrhea. She denied abdominal pain, nausea, vomiting, hematochezia, melena, hematuria, dysuria, cough, fevers, chills, rigors, paresthesias, or weakness. She is currently asymptomatic but her blood pressures severely uncontrolled and she states she did not take her medications this afternoon. She had a CTA 05/2018 that showed extensive disease with 70% proximal celiac, SMA 70% proximal,, hepatic 50%, right NED 70%, totally occluded bilateral iliacs with patent aortobifemoral bypass, with total occlusion of the right SFA and distal reconstitution, and left lower extremity had a high-grade stenosis with 2 vessel runoff. She underwent lower extremity catheterization 06/24/2018 which showed a widely patent aortobifemoral bypass graft with totally occluded right SFA at the origin, left SFA was patent with moderate to severe proximal stenosis in both extremities had 2 vessel runoff to the feet. She also has a left radial artery occlusion. She does complain that she is having more difficulty walking any distance due to the pain and fatigue in her legs. Her CBC was normal, INR was normal, CMP was normal, troponin is mildly elevated at 19.65, chest x-ray showed evidence of COPD, and ECG showed normal sinus rhythm rate of 68 with RBBB which is not new. She was treated with aspirin, clonidine, nitropaste and Protonix in the emergency room. She is being admitted for further evaluation treatment. Review of Systems Constitutional: Negative, No fever, No chills, No sweats. Eye: Negative. Ear/Nose/Mouth/Throat: Negative. Respiratory: Negative except as above. Cardiovascular: Negative except as above . Immunologic: Negative. Musculoskeletal: Negative. Integumentary: Negative. Neurologic: Negative. GI: Negative. : Negative. Objective Vitals and Measurements (Last Charted) T: 97.6 F HR: 61 RR: 18 BP: 172/59 SpO2: 95% WT: 68.04 kg BMI: 26.91 Physical Exam General: Patient is sitting up on stretcher in no acute distress. Well- developed well-nourished elderly female. Eye: Pupils are equal, round and reactive to light, Extraocular movements are intact, Normal conjunctiva. HENT: Normocephalic. Moist oral mucosa without pharyngeal erythema. Neck: Supple, Non-tender, bilateral carotid bruit. Respiratory: Lungs are clear to auscultation bilaterally, No wheezing, rales or rhonchi, respirations are non-labored. Cardiovascular: Normal rate, Regular rhythm, 2/6 systolic murmur, No JVD, trace ankle edema bilaterally. She had no pulse in her left radial could not palpate her lower extremity pulses. Gastrointestinal: Obesity limits exam. Soft, nontender, nondistended, normal bowel sounds. Genitourinary: No costovertebral angle tenderness. Musculoskeletal: Normal strength, No tenderness. Moves all 4 extremities. Integumentary: Warm, Dry, Intact. Neurologic: Alert, Oriented. No focal deficits. Psychiatric: Cooperative, Appropriate mood and affect. Additional Systems: _ Assessment/Plan Visit Diagnoses 1. Chest pain R07.9 2. Severe uncontrolled hypertension I10 3. PAD (peripheral artery disease) I73.9 Right renal artery stenosis, SMA stenosis and celiac artery stenosis 4. Diabetes E11.9 5. Emphysema/COPD J43.9 6. Dyslipidemia E78.5 7. Carotid artery disease I77.9 History of lacunar CVA 8. Thyroid disease E07.9 9. Pulmonary nodule R91.1 Patient be admitted to PCU under observation. Will complete serial troponins to rule out ND. Her chest discomfort is atypical and is likely related to her uncontrolled blood pressure. She does have known right renal artery stenosis is this may be contributing to her uncontrolled hypertension. Patient was on losartan will add captopril to her regimen and add hydralazine p.r.n. for sustained systolic blood pressure greater than 165. Will check lipid panel. Will check echocardiogram. Will place on full-dose Lovenox. Will continue nitropaste. Patient has significant PAD including SMA, celiac artery and hepatic artery stenosis but denied postprandial abdominal pain or any abdominal pain. She also has right renal artery stenosis and likely bilateral carotid disease. Will check carotid ultrasound. She is apparently scheduled to have a procedure with Dr. Diaz regarding her lower extremity PAD. She needs aggressive secondary prevention. Will continue her home medications including her levothyroxine. Will place her on insulin coverage. Patient was noted to have a right middle lobe nodule on CT scan last August but has not had a follow-up CT scan since then. She will need follow- up CT at some point in light of her extensive tobacco history. Repeat labs in a.m. DVT prophylaxis Lovenox Orders: US Carotid Duplex Derrell Estimated Length of Stay 1-2 days This case was discussed with Dr. Hylton and plan of care was established together. Problems List Ongoing Carotid artery disease Celiac artery stenosis Diabetes Dyslipidemia Emphysema/COPD H/O: CVA (cerebrovascular accident) H/O: pneumonia History of aorto-femoral bypass Hx of appendectomy PAD (peripheral artery disease) Pulmonary nodule NED (renal artery stenosis) Superior mesenteric artery stenosis Thyroid disease Historical No qualifying data Medications Inpatient acetaminophen, 650 mg, 2 TAB, PO, Q4H (Every 4 hours), PRN acetaminophen, 650 mg, 2 TAB, PO, Q4H (Every 4 hours), PRN acetaminophen, 650 mg, 2 TAB, PO, Q4H (Every 4 hours), PRN aspirin, 162 mg, 2 TAB, PO, Daily Capoten, 25 mg, 1 TAB, PO, TID (3 times a day) docusate sodium, 100 mg, 1 CAP, PO, Q12H (Every 12 hours) enoxaparin, 68.04 mg, 0.68 mL, 1 mg/kg, Subcut, Q12H (Every 12 hours) famotidine, 20 mg, 1 TAB, PO, Q12H (Every 12 hours) hydrALAZINE, 25 mg, 1 TAB, PO, Q6H (Every 6 hours), PRN insulin lispro, Subcut, Q4H (Every 4 hours) Lipitor, 40 mg, 1 TAB, PO, Daily morphine, 2 mg, 0.5 mL, IV Push, Once morphine, 2 mg, 0.5 mL, IV Push, Q1H (Every hour), PRN nitroglycerin, 0.4 mg, 1 TAB, Sublingual, 5MX3 (Every 5 minutes x 3 doses), PRN nitroglycerin ointment, 1 in, TOP, BID (2 times a day) [place] 5/325, 1 TAB, PO, Q4H (Every 4 hours), PRN ondansetron, 4 mg, 2 mL, IV Push, Q4H (Every 4 hours), PRN Robitussin DM, 10 mL, PO, Q4H (Every 4 hours), PRN Saline Flush, 10 mL, IV Push, Daily, PRN Saline Flush, 10 mL, IV Push, Q12H (Every 12 hours) Saline Flush, 10 mL, IV Push, Daily, PRN Zofran, 4 mg, 2 mL, IV Push, Once Home atorvastatin 10 mg oral tablet, 10 mg, 1 TAB, PO, Daily glipiZIDE 5 mg oral tablet, 5 mg, 1 TAB, PO, Daily levothyroxine 137 mcg (0.137 mg) oral capsule, 137 mcg, 1 CAP, PO, Daily losartan 100 mg oral tablet, 100 mg, 1 TAB, PO, Daily metFORMIN 500 mg oral tablet, 500 mg, 1 TAB, PO, BID (2 times a day) Metoprolol Tartrate 50 mg oral tablet, 50 mg, 1 TAB, PO, Daily raNITIdine 75 mg oral tablet, 75 mg, 1 TAB, PO, Daily Allergies lidocaine Social History Patient has a 60 pack year history quit in 2011 No alcohol use No drug use lives with her 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 Cataract surgery: Patient. Colonoscopy: Patient. Diabetes mellitus type II: Patient. Ex-cigarette smoker: Patient. Hyperlipidemia: Patient. Hypertension: Patient. Hypothyroidism: Patient. Peripheral vascular disease: Patient. TIA: Patient. She is not certain what her mom from Dad from CHF Lab Results Test Name Test Result Date/Time WBC 3.6 x10'3/microL (Low) 07/18/2018 19:15 EDT RBC 3.86 x10'6/microL 07/18/2018 19:15 EDT Hgb 11.4 g/dL 07/18/2018 19:15 EDT Hct 35.5 % 07/18/2018 19:15 EDT Platelet 163 x10'3/microL 07/18/2018 19:15 EDT MCV 92.0 fL 07/18/2018 19:15 EDT MCH 29.5 pg 07/18/2018 19:15 EDT MCHC 32.1 g/dL 07/18/2018 19:15 EDT RDW 43.4 fL 07/18/2018 19:15 EDT MPV 10.4 fL 07/18/2018 19:15 EDT Abs NRBCs 0.00 x10'3/microL 07/18/2018 19:15 EDT Neutrophils 48.0 % 07/18/2018 19:15 EDT Lymphs 38.8 % 07/18/2018 19:15 EDT Monocytes % 10.1 % 07/18/2018 19:15 EDT Eosinophil % 2.5 % 07/18/2018 19:15 EDT Basophil % 0.3 % 07/18/2018 19:15 EDT Neutro Absolute 1.7 x10'3/microL 07/18/2018 19:15 EDT Lymph Absolute 1.4 x10'3/microL 07/18/2018 19:15 EDT Bollinger Absolute 0.4 x10'3/microL 07/18/2018 19:15 EDT Eos Absolute 0.1 x10'3/microL 07/18/2018 19:15 EDT Basophil Absolute 0.0 x10'3/microL 07/18/2018 19:15 EDT Immature Granulocytes Abs 0.01 x10'3/microL 07/18/2018 19:15 EDT Immature Granulocytes % 0.3 % 07/18/2018 19:15 EDT NRBC 0.0 /100WBC 07/18/2018 19:15 EDT PT 12.8 second 07/18/2018 19:15 EDT INR 1.0 07/18/2018 19:15 EDT Sodium 142 mmol/L 07/18/2018 19:15 EDT Potassium 4.3 mmol/L 07/18/2018 19:15 EDT Chloride 105 mmol/L 07/18/2018 19:15 EDT CO2 27 mmol/L 07/18/2018 19:15 EDT AGAP 10 07/18/2018 19:15 EDT Glucose 154 mg/dL (High) 07/18/2018 19:15 EDT BUN 20 mg/dL 07/18/2018 19:15 EDT Creatinine 0.54 mg/dL 07/18/2018 19:15 EDT Calcium 9.3 mg/dL 07/18/2018 19:15 EDT Est CrCl (CG) 73.2 mL/min 07/18/2018 19:15 EDT GFR (CKD-EPI) 92.6 mL/min/1.73 m2 07/18/2018 19:15 EDT Albumin Level 3.8 g/dL 07/18/2018 19:15 EDT Total Protein 6.7 g/dL 07/18/2018 19:15 EDT Troponin T 19.65 ng/L (High) 07/18/2018 19:15 EDT pro-BNP 3286 pg/mL (High) 07/18/2018 19:15 EDT Alk Phos 82 Units/L 07/18/2018 19:15 EDT AST 20 Units/L 07/18/2018 19:15 EDT ALT(SGPT) 25 Units/L 07/18/2018 19:15 EDT Bili Total 0.5 mg/dL 07/18/2018 19:15 EDT UA Color Light-Yellow 07/18/2018 20:48 EDT UA Appear Clear 07/18/2018 20:48 EDT UA pH 5.5 07/18/2018 20:48 EDT UA Spec Grav 1.011 07/18/2018 20:48 EDT UA Glucose Negative 07/18/2018 20:48 EDT UA Bili Negative 07/18/2018 20:48 EDT UA Ketones Negative 07/18/2018 20:48 EDT UA Blood Negative 07/18/2018 20:48 EDT UA Protein 1+ (Abnormal) 07/18/2018 20:48 EDT UA Nitrite Negative 07/18/2018 20:48 EDT UA Leuk Est Negative 07/18/2018 20:48 EDT UA Spec Type Clean Catch 07/18/2018 20:48 EDT UA WBC <1 /hpf 07/18/2018 20:48 EDT UA RBC 1 /hpf 07/18/2018 20:48 EDT UA Squamous Epithelial Trace (Abnormal) 07/18/2018 20:48 EDT Culture? No 07/18/2018 20:48 EDT Radiology (Past 36 Hrs) XR Chest 1V - 07/18/2018 20:20 EDT EXAM: SINGLE VIEW CHEST INDICATION: Chest pain COMPARISON: August 19, 2017. VIEWS: 1 FINDINGS: LUNGS/PLEURA: Emphysematous changes. Chronic interstitial changes. No acute infiltrate or effusion. HEART/MEDIASTINUM: Cardiomegaly. LIFE SUPPORT LINES: None. PNEUMOTHORAX: None. OSSEOUS STRUCTURES: No fracture or destructive lesion. IMPRESSION: Emphysematous changes. Cardiomegaly. No active pulmonary disease. Dictating Meaghan Hernandez Dictated 07/18/2018 20:[address] Grady, Location: [place] [address] 07/18/2018 [facility] History and Physical H i s t o r y a n d P h y s i c a l Document Name Signed Date History and Physical 06/24/2018 8:42:02 AM EDT H&P Update AHS/Moderate Sedation Evaluation Patient: KASEY RICKS Age: 73 years Sex: Female : 1945 Associated Diagnoses: None Author: DEMETRIO PERALTA, CANDICE WILLOUGHBY Admission Information "I have reviewed History and Physical and re-examined patient": "This patients history and physical has been reviewed and the patient re-examined by the treating physician. No changes have occurred in the patients condition since the history and physical was originally completed.", Risks and options for procedure and anesthesia have been discussed with patient. Informed consent has been obtained. Plan of Anesthesia: sedation/analgesia Airway: Adequate Mallampati Class: 2 ASA Classification: 2 Plan of Care: Bilteral lower extremity angiogram with possilbe intervention. . [Electronically Signed By:] MD DEMETRIO PERALTA, CANDICE WILLOUGHBY On, 06/24/2018 08:42 AM 06/24/2018 [facility] History and Physical H i s t o r y a n d P h y s i c a l Document Name Signed Date History and Physical per contribution Signed By: 08/12/2017 9:05:13 PM EDT; 08/12/2017 9:03:13 PM EDT Admission H&P note Patient: KASEY RICKS Age: 72 years Sex: Female : 1945 Associated Diagnoses: None Author: VANCE SYED MD Admission Information Date of Admission: 08/12/2017 . History of Present Illness: Chief Complaint AHS: This is a 72 years old patient with past medical history of COPD, diabetes mellitus type 2, hypertension, hypothyroidism, PAD and is coming to the emergency room with complaints of generalized weakness and fatigue, feeling cold and having shakes and not feeling well for the past 2 days-as per family patient started to have the symptoms Wednesday night after eating at a local restaurant and later at home she spiked a fever >100F and patient said there were some moments that when she cannot recall some of the events although she denies any syncope but had some dizzy spells on and off. Patient has shortness of breath but she states that usually she has some shortness of breath due to her COPD-patient is not using oxygen at home. As well patient had 2 days ago an episode of vomiting - thought she had a food poisoning-no more since then. She is poor historian- she admits migth had some dysuria, no hematuria. Patient denies any chest pain, no abd pain, no leg swelling, no syncope. In ER vital signs stable. Blood work showing negative 1st troponin, mildly elevated proBNP, elevated glucose a of 351. ABG showing ph= 7.502; pCO2= 33.7; Po2= 61.0 UA positive. Chest x-ray showing "Mild CHF/interstitial edema. EKG showing no acute ischemic changes . Problem List: PROBLEM LIST: , UTI symptoms of dysuria/frequency. Past Medical History: HEALTH HISTORY Appendectomy Patient Cataract surgery Patient Colonoscopy Patient Diabetes mellitus type II Patient Ex-cigarette smoker Patient Hyperlipidemia Patient Hypertension Patient Hypothyroidism Patient Peripheral vascular disease Patient . H i s t o r y a n d P h y s i c a l Document Name Signed Date History and Physical per contribution Signed By: 08/12/2017 9:05:13 PM EDT; 08/12/2017 9:03:13 PM EDT Family History: patient doesn' tremember. Social History: Tobacco use ( ex smoker ), Alcohol use ( Quit alcohol ), Illicit drug use ( Never used illicit drugs ), Living situation ( Lives with family ). Medication List: Home Medication List Medication atorvastatin(atorvastatin 10 mg oral tablet)(atorvastatin) 10 mg 1 TAB By Mouth DAILY glipiZIDE(glipiZIDE 5 mg oral tablet)(glipiZIDE) 5 mg 1 TAB By Mouth DAILY levothyroxine(levothyroxine 125 mcg (0.125 mg) oral tablet)(levothyroxine) 125 mcg 1 TAB By Mouth DAILY losartan(losartan 100 mg oral tablet)(losartan) 100 mg 1 TAB By Mouth DAILY metFORMIN(metFORMIN 500 mg oral tablet)(metFORMIN) 500 mg 1 TAB By Mouth DAILY metoprolol(Metoprolol Tartrate 50 mg oral tablet)(metoprolol) 50 mg 1 TAB By Mouth 2 TIMES A DAY traMADol(traMADol 50 mg oral tablet)(traMADol) 50 mg 1 TAB By Mouth Every 6 hours PRN as needed for pain . Allergy Profile: Allergy LIST: lidocaine . Review of Systems Constitutional: Fever, Chills, Weakness. Respiratory: Shortness of breath, No cough, No sputum production, No wheezing. Cardiovascular: No chest pain, No peripheral edema, No syncope. Gastrointestinal: Nausea, Vomiting, No diarrhea, No constipation, No abdominal pain. Genitourinary: Dysuria, No hematuria. Musculoskeletal: No joint pain. Integumentary: No rash, No pruritus. Neurologic: Alert and oriented X4. Psychiatric: No anxiety, No depression. All other systems are negative Physical Examination Intake and Output H i s t o r y a n d P h y s i c a l Document Name Signed Date History and Physical per contribution Signed By: 08/12/2017 9:05:13 PM EDT; 08/12/2017 9:03:13 PM EDT Intake and Output - 07:00 yesterday to 06:59 today VS/Measurements VITALS: BP: 148 / 75 Pulse: 78 Temp: 98.9 Resp Rate: 23 Tmax: 98.9 Wt(kg): 70 Pain Score: O2 Sat: 96 08/12/17 19:26 O2 Status: Room air 21% General: Alert and oriented, No acute distress. Eye: Pupils are equal, round and reactive to light, Normal conjunctiva. HENT: Normocephalic. Neck: Supple, Non-tender, No carotid bruit, No jugular venous distention, No lymphadenopathy, No thyromegaly. Respiratory: Respirations are non-labored, Breath sounds are equal, Symmetrical chest wall expansion, No chest wall tenderness, diffuse fine crackles, no wheezing, . Cardiovascular: Normal rate, Regular rhythm, No murmur, No gallop, Good pulses equal in all extremities, Normal peripheral perfusion, No edema. Gastrointestinal: Soft, Non-tender, Non-distended, Normal bowel sounds, No organomegaly. Genitourinary: No costovertebral angle tenderness. Musculoskeletal: Normal range of motion, Normal strength. Integumentary: Warm, Intact. Neurologic: Alert, Oriented, Normal sensory, Normal motor function, No focal deficits, Cranial Nerves II-XII are grossly intact. Psychiatric: Cooperative, Appropriate mood and affect. Results Review Radiology results COMPLETED RADIOLOGY IMAGING STUDIES: CT Head/Brain WO Contrast [Auth (Verified)] (08/12 1750): FINAL IMPRESSION:No mass, hemorrhage or CT evidence for acute infarction.Moderate bilateral white matter microangiopathic ischemic change.Chronic lacune, body of the left caudate nucleus.Dictating Dr. Cano,NathanaelDictated 08/12/2017 17:58Signing Dr Cano,EdLocation [id number] H i s t o r y a n d P h y s i c a l Document Name Signed Date History and Physical per contribution Signed By: 08/12/2017 9:05:13 PM EDT; 08/12/2017 9:03:13 PM EDT XR Chest 1V [Auth (Verified)] (08/12 1718): FINAL IMPRESSION: Mild CHF/interstitial edema.Dictating Cecilia Mominctated 08/12/2017 17:22Signing Lico HurtLocathudson [id number] Micro Results MICROBIOLOGY STUDIES RESULTED WITHIN THE LAST 2 DAYS. See LAB tab for older results. No cultures resulted in the last 2 days. Lab Results LABORATORY RESULTS: Urinalysis / Reflex Cult 08/12/17 19:08 UA Spec Type Clean Catch UA Color Yellow UA Appear Hazy* UA Spec Grav 1.02 UA pH 5.5 UA Protein 2+* UA Glucose 4+* UA Ketones Trace* UA Bili Negative UA Blood 1+* UA Urobilinogen 1+* UA Nitrite Negative UA Leuk Est 3+* MicroscopicDone? Yes Culture? Yes UA RBC 2 UA WBC 47 H UA Squam Epithelial Trace UA Bacteria 4+* H i s t o r y a n d P h y s i c a l Document Name Signed Date History and Physical per contribution Signed By: 08/12/2017 9:05:13 PM EDT; 08/12/2017 9:03:13 PM EDT UA Mucous 2+* UA WBC Clumps Present* Glucose POC DEL 08/12/17 18:54 Glu POC DEL 321 H Blood Gas Analysis 08/12/17 17:50 Test to be Performed Blood Gas Analysis Type [id number] Sample Type Sample Site Radial, Right Jon Test Drawn by pH 7.5 H pCO2 33.7 L pO2 61 L HCO3 25.8 H BE 3 H %Sat 93.2 L PT Temp 98.6 pHtc 7.5 pCO2tc 33.7 pO2tc 61 tHGB 12.1 tHCT 36 Oxyhemoglobin 91.1 L Carboxyhemoglobin 2 H Methemoglobin 0.3 Mode Procurement Personnel Resp Therapist Bandage Applied Yes Site Held 5 Mins Yes tCO2 26.8 CBC and Plt w Diff 08/12/17 17:24 Instr WBC 3.2 WBC 3.2 L RBC 3.78 L HGB 11.2 L HCT 34.8 L MCV 92.1 MCH 29.6 MCHC 32.2 L RDW 47.3 H Platelet 127 L H i s t o r y a n d P h y s i c a l Document Name Signed Date History and Physical per contribution Signed By: 08/12/2017 9:05:13 PM EDT; 08/12/2017 9:03:13 PM EDT MPV 11.3 Auto Diff 08/12/17 17:24 Neutro Auto 71.5 Lymph Auto 22.5 Bollinger Auto 5.1 Eos Auto 0.6 Basophil Auto 0.3 Imm Gran Auto 0 Neutro Absolute 2.3 Lymph Absolute 0.7 L Bollinger Absolute 0.2 Eos Absolute 0 Basophil Absolute 0 Imm Gran Absolute 0 Comp Metabolic Panel 08/12/17 17:24 Sodium 135 L Potassium 4.3 Chloride 96 L CO2 27 Glucose 308 H BUN 27 H Creatinine 0.89 Calcium 9.2 Total Protein 7.7 Albumin 3.6 Bili Total 1.2 Alk Phos 101 AST 41 H ALT (SGPT) 45 Globulin 4.1 H AG ratio 0.9 L AGAP 12 Troponin T QuaNT 08/12/17 17:24 Trop T 0.01 Beta Hydroxybutyric Acid 08/12/17 17:24 Hydroxybutyrate 0.3 H Magnesium Level 08/12/17 17:24 Magnesium 2 Phosphorus Level 08/12/17 17:24 H i s t o r y a n d P h y s i c a l Document Name Signed Date History and Physical per contribution Signed By: 08/12/2017 9:05:13 PM EDT; 08/12/2017 9:03:13 PM EDT Phos 1.7 L Renal Function Index 08/12/17 17:24 GFR (CKD-EPI) 64 Pro BNP Level 08/12/17 17:24 pro-BNP 1557 H Prothrombin Time with INR 08/12/17 17:24 PT 13.9 INR 1.1 PTT 08/12/17 17:24 PTT 32.7 Lactic Acid/Reflex x2 if Greater Than 2 08/12/17 17:24 Lactic Acid 1.6 Influenza A and B Antigen 08/12/17 17:24 Source [employer] Swab Influenza A Ag Neg for Flu A Influenza B Ag Neg for Flu B Glucose POC DEL 08/12/17 15:58 Glu POC DEL 315 H Lab results reviewed Documentation review Reviewed old records Review / Management Diagnostic Impression: ASSESMENT AND PLAN 1. Acute hypoxic respiratory failure / acute CHF-new onset-admit to PCU Continue supportive care- iv Lasix , oxygen supplementation- could be a component of chronic hypoxic resp failure due to valeri COPD-will need wlaking test for possible home O2 at discharge- ABG shows compensated hypoxia Prn pulmonary consult Daily weight, Ins and Outs Fluid restriction Cardiology consult Education about complaince w low salt diet and fluid restriction 2d echo Continue statin, arbs and b blockers Will do stat CT angio chest for further evaluation H i s t o r y monica ross P h y s i c a l Document Name Signed Date History and Physical per contribution Signed By: 08/12/2017 9:05:13 PM EDT; 08/12/2017 9:03:13 PM EDT 2. Acute UTI-patient had fever at home -transitory amnesia-could have been caused by infection Will r/o TIA- order stroke workup-MRI brain, us carotids f/u urine cx Empiric short course Rocephin 3. DM type 2 with hyperglycemia -insulin sliding scale Accuchekcs Check HbA1c 4. Hypothyroidism- check TSH Continue levothyroxine 5. HTN/HPL- continue home meds DVT and GI propylaxis INpatient I anticipate the patient will need more than 2 midnight stay in the hospital because of acute hypoxic respiratory failure due to CHF exacerbation requiring iv diuresis and oxygen suplementation and close monitoring . If not treated in the hospital at risk of developing further complications as severe respiratory failure and even sudden patient seen before midnight 08/12/2017. Plan PENDING LABORATORY TESTS: Culture Urine Ordered Culture Stool Level III Ordered Lactoferrin Fecal Ordered C Diff Antigen and Toxin Test Ordered PENDING RADIOLOGY/IMAGING STUDIES: H i s t o r y a suzette ross P h y s i c a l Document Name Signed Date History and Physical per contribution Signed By: 08/12/2017 9:05:13 PM EDT; 08/12/2017 9:03:[address] Chest PE W Contrast [New] . [Electronically Signed By:] VANCE EVANGELISTA MD On, 08/12/2017 09:03 PM [Electronically Signed by:] VANCE SYED MD MD On, 08.12.2017 09:05 P 08/12/2017 [facility] Vital Signs Vital Sign Value Date Comments Source Heart Rate 67 bpm 01/28/2020 [facility] NIBP MAP 98 mm[Hg] 01/28/2020 [facility] Inet NIBP Systolic 217 mm[Hg] 01/28/2020 [facility] Inet NIBP Diastolic 53 mm[Hg] 01/28/2020 [facility] NIBP MAP Calc 108 mm[Hg] 01/28/2020 [facility] Vital Signs Status/Type Routin e Assessment (01/27/20 9:30 PM) 01/28/2020 [facility] Temperature 97.9 [degF] 01/28/2020 [facility] Temp Method Oral (01/27/20 8:13 PM) 01/28/2020 [facility] Respiratory Rate 16 br/min 01/28/2020 [facility] BP Diastolic 82 mm[Hg] 12/04/2019 [facility] Height 62.5 [in_i] 12/04/2019 [facility] BMI (Body Mass Index) 27.3 kg/ m2 12/04/2019 [facility] BP Systolic 128 mm[Hg] 12/04/2019 [facility] Body Weight 2425.6 [oz_av] 12/04/2019 [facility] BP Diastolic 70 mm[Hg] 08/31/2019 [facility] Height 62.5 [in_i] 08/31/2019 [facility] BP Systolic 120 mm[Hg] 08/31/2019 [facility] BP Diastolic 78 mm[Hg] 05/31/2019 [facility] Height 62.5 [in_i] 05/31/2019 [facility] BMI (Body Mass Index) 25.7 kg/ m2 05/31/2019 [facility] BP Systolic 140 mm[Hg] 05/31/2019 [facility] Body Weight 2288 [oz_av] 05/31/2019 [facility] NIBP MAP 83 mm[Hg] 04/28/2019 [facility] Heart Rhythm Interpretation Si nus/atrial rhythm (04/28/19 1:00 PM) 04/28/2019 [facility] NIBP MAP Calc 92 04/28/2019 [facility] Heart Rate 75 bpm 04/28/2019 [facility] Respiratory Rate 21 br/min 04/28/2019 [facility] NIBP Systolic 123 mm[Hg] 04/28/2019 [facility] NIBP Diastolic 77 mm[Hg] 04/28/2019 [facility] Vital Signs Status/Type Routin e Assessment (04/28/19 5:00 AM) 04/28/2019 [facility] BP Cuff Size Medium (04/27/19 6 :00 PM) 04/27/2019 [facility] NIBP Method Automatic (04/27/19 6:00 PM) 04/27/2019 [facility] BP Location Arm, right ( 9 6:00 PM) 04/27/2019 [facility] Inet A-Line Systolic 175 mm[Hg] 04/27/2019 [facility] Inet A-Line Diastolic 54 mm[Hg] 04/27/2019 [facility] A-Line MAP 99 mm[Hg] 04/27/2019 [facility] Temp Method Oral (04/27/19 1:45 PM) 04/27/2019 [facility] Temperature 98.1 [degF] 04/27/2019 [facility] BP Diastolic 70 mm[Hg] 03/07/2019 [facility] Height 62.5 [in_i] 03/07/2019 [facility] BMI (Body Mass Index) 24.6 kg/ m2 03/07/2019 [facility] BP Systolic 140 mm[Hg] 03/07/2019 [facility] Body Weight 2184 [oz_av] 03/07/2019 [facility] BP Diastolic 60 mm[Hg] 12/07/2018 [facility] Height 62.5 [in_i] 12/07/2018 [facility] BMI (Body Mass Index) 26 kg/m2 12/07/2018 [facility] BP Systolic 140 mm[Hg] 12/07/2018 [facility] Body Weight 2313.6 [oz_av] 12/07/2018 [facility] BP Diastolic 58 mm[Hg] 11/16/2018 [facility] Height 62.5 [in_i] 11/16/2018 [facility] BMI (Body Mass Index) 26.2 kg/ m2 11/16/2018 [facility] BP Systolic 140 mm[Hg] 11/16/2018 [facility] Body Weight 2329.6 [oz_av] 11/16/2018 [facility] BP Diastolic 76 mm[Hg] 09/12/2018 [facility] Height 62.5 [in_i] 09/12/2018 [facility] BP Systolic 156 mm[Hg] 09/12/2018 [facility] BP Diastolic 60 mm[Hg] 08/22/2018 [facility] Height 62.5 [in_i] 08/22/2018 [facility] BP Systolic 132 mm[Hg] 08/22/2018 [facility] BP Location Arm, left (08/15/18 9:40 PM) 08/16/2018 [facility] Inet NIBP Systolic 118 mm[Hg] 08/16/2018 [facility] Inet NIBP Diastolic 44 mm[Hg] 08/16/2018 [facility] NIBP MAP Calc 60 08/16/2018 [facility] Respiratory Rate 19 br/min 08/16/2018 [facility] Vital Signs Status/Type Routin e Assessment (08/15/18 9:00 PM) 08/16/2018 [facility] Heart Rate 84 bpm 08/16/2018 [facility] Temp Method Oral (08/15/18 9:00 PM) 08/16/2018 [facility] Temperature 98.9 [degF] 08/16/2018 [facility] Pulse Equipment SPO2 (08/15/18 7:15 PM) 08/16/2018 [facility] NIBP MAP 70 mm[Hg] 08/16/2018 [facility] Vital Signs Status Vital signs taken (08/15/18 4:00 PM) 08/15/2018 [facility] Heart Rhythm Interpretation Si nus/atrial rhythm (08/15/18 4:00 PM) 08/15/2018 [facility] Telemetry Box Number [id number] 08/15/2018 [facility] BP Cuff Size Medium (08/15/18 4 :00 PM) 08/15/2018 [facility] Vital Signs Note administered O2 at 2 L/min. informed the RN 08/14/2018 [facility] Telemetry Details In place ( 3:00 PM) 08/14/2018 [facility] NIBP Alarms set and on Yes ( 6:00 AM) 08/13/2018 [facility] Defibrilator Vest No (08/13/18 6:00 AM) 08/13/2018 [facility] BP Diastolic 60 mm[Hg] 07/21/2018 [facility] Height 62.5 [in_i] 07/21/2018 [facility] BMI (Body Mass Index) 26.6 kg/ m2 07/21/2018 [facility] BP Systolic 130 mm[Hg] 07/21/2018 [facility] Body Weight 2361.6 [oz_av] 07/21/2018 [facility] Respiratory Rate 19 br/min 07/19/2018 [facility] Heart Rate 67 bpm 07/19/2018 [facility] NIBP MAP 80 mm[Hg] 07/19/2018 [facility] In[facility] NIBP Systolic 135 mm[Hg] 07/19/2018 [facility] Inet NIBP Diastolic 56 mm[Hg] 07/19/2018 [facility] NIBP MAP Calc 82 07/19/2018 [facility] Temp Method Oral (07/19/18 11:0 0 AM) 07/19/2018 [facility] Temperature 98.0 [degF] 07/19/2018 [facility] Heart Rhythm Interpretation Si nus/atrial rhythm (07/19/18 11:00 AM) 07/19/2018 [facility] Vital Signs Status/Type Routin e Assessment (07/19/18 8:00 AM) 07/19/2018 [facility] Telemetry Details Applied (07/18/18 10:00 PM) 07/19/2018 [facility] Respiratory Rate 20 br/min 06/24/2018 [facility] Heart Rate 71 bpm 06/24/2018 [facility] NIBP MAP Calc 96 06/24/2018 [facility] NIBP Systolic 183 mm[Hg] 06/24/2018 [facility] Inet NIBP Diastolic 52 mm[Hg] 06/24/2018 [facility] NIBP MAP 91 mm[Hg] 06/24/2018 [facility] Temp Method Oral (06/24/18 6:35 AM) 06/24/2018 [facility] Vital Signs Status/Type Pre Pr ocedure (06/24/18 6:35 AM) 06/24/2018 [facility] Temperature 98.6 [degF] 06/24/2018 [facility] BP Diastolic 78 mm[Hg] 05/10/2018 [facility] Height 62.5 [in_i] 05/10/2018 [facility] BMI (Body Mass Index) 27.7 kg/ m2 05/10/2018 [facility] BP Systolic 140 mm[Hg] 05/10/2018 [facility] Body Weight 2460.8 [oz_av] 05/10/2018 [facility] BP Diastolic 72 mm[Hg] 01/04/2018 [facility] Height 62.99 [in_i] 01/04/2018 [facility] BMI (Body Mass Index) 26.9 kg/ m2 01/04/2018 [facility] BP Systolic 150 mm[Hg] 01/04/2018 [facility] Body Weight 2428.8 [oz_av] 01/04/2018 [facility] BP Diastolic 60 mm[Hg] 11/25/2017 [facility] Height 62.99 [in_i] 11/25/2017 [facility] BMI (Body Mass Index) 26.8 kg/ m2 11/25/2017 [facility] BP Systolic 138 mm[Hg] 11/25/2017 [facility] Body Weight 2416 [oz_av] [facility] BP Diastolic 88 mm[Hg] 10/14/2017 [facility] Height 62.99 [in_i] 10/14/2017 [facility] BMI (Body Mass Index) 26.6 kg/ m2 10/14/2017 [facility] BP Systolic 150 mm[Hg] 10/14/2017 [facility] Body Weight 2403.2 [oz_av] 10/14/2017 [facility] BP Diastolic 70 mm[Hg] 08/27/2017 [facility] Height 62.99 [in_i] 08/27/2017 [facility] BMI (Body Mass Index) 26.4 kg/ m2 08/27/2017 [facility] BP Systolic 169 mm[Hg] 08/27/2017 [facility] Body Weight 2387.2 [oz_av] 08/27/2017 [facility] Heart Rate 74 bpm 08/20/2017 [facility] Inet NIBP Systolic 138 mm[Hg] 08/20/2017 [facility] NIBP Diastolic 49 mm[Hg] 08/20/2017 [facility] NIBP MAP 75 mm[Hg] 08/20/2017 [facility] NIBP MAP Calc 79 08/20/2017 [facility] Temp Method Temporal (08/19/17 6:00 PM) 08/19/2017 [facility] Temperature 98.8 [degF] 08/19/2017 [facility] Respiratory Rate 20 br/min 08/19/2017 [facility] BP Diastolic 66 mm[Hg] 08/17/2017 [facility] Height 62.99 [in_i] 08/17/2017 [facility] BMI (Body Mass Index) 26 kg/m2 08/17/2017 [facility] BP Systolic 110 mm[Hg] 08/17/2017 [facility] Body Weight 2352 [oz_av] 08/17/2017 [facility] NIBP MAP 77 mm[Hg] 08/14/2017 [facility] Inet NIBP Systolic 138 mm[Hg] 08/14/2017 [facility] In[facility] NIBP Diastolic 56 mm[Hg] 08/14/2017 [facility] NIBP MAP Calc 83 08/14/2017 [facility] Heart Rate 69 bpm 08/14/2017 [facility] Vital Signs Status/Type Routin e Assessment (08/14/17 8:00 AM) 08/14/2017 [facility] Temp Method Oral (08/14/17 8:00 AM) 08/14/2017 [facility] Respiratory Rate 18 br/min 08/14/2017 [facility] Temperature 97.6 [degF] 08/14/2017 [facility] Heart Rhythm Interpretation Si nus/atrial rhythm (08/14/17 8:00 AM) 08/14/2017 [facility] Vital Signs Note Patient refus ed vital signs for 11...wants them done at 3am. 08/14/2017 [facility] Inet NIBP Systolic 181 mm[Hg] 04/12/2017 [facility] Inet NIBP Diastolic 54 mm[Hg] 04/12/2017 [facility] NIBP MAP Calc 96 04/12/2017 [facility] Respiratory Rate 18 br/min 04/12/2017 [facility] Heart Rate 64 bpm 04/12/2017 [facility] NIBP MAP 86 mm[Hg] 04/12/2017 [facility] Heart Rate Location Auto BP ( 1:00 PM) 04/12/2017 [facility] Vital Signs Status/Type Post p rocedure (04/12/17 1:00 PM) 04/12/2017 [facility] Temperature 98 [degF] 04/12/2017 [facility] Temp Method Oral (04/12/17 1:00 PM) 04/12/2017 [facility] BP Location Arm, left (04/12/17 1:00 PM) 04/12/2017 [facility] BP Diastolic 84 mm[Hg] 02/26/2017 [facility] Height 62.99 [in_i] 02/26/2017 [facility] BMI (Body Mass Index) 27.3 kg/ m2 02/26/2017 [facility] BP Systolic 142 mm[Hg] 02/26/2017 [facility] Weight Measured 2467.2 [oz_av] 02/26/2017 [facility] BP Diastolic 78 mm[Hg] 11/17/2016 [facility] Height 62.99 [in_i] 11/17/2016 [facility] BMI (Body Mass Index) 27.1 kg/ m2 11/17/2016 [facility] BP Systolic 138 mm[Hg] 11/17/2016 [facility] Weight Measured 2444.8 [oz_av] 11/17/2016 [facility] BP Diastolic 70 mm[Hg] 09/28/2016 [facility] Height 62.99 [in_i] 09/28/2016 [facility] BMI (Body Mass Index) 26.5 kg/ m2 09/28/2016 [facility] BP Systolic 138 mm[Hg] 09/28/2016 [facility] Weight Measured 2393.6 [oz_av] 09/28/[facility] BP Diastolic 62 mm[Hg] 03/31/2016 [facility] Height 62.99 [in_i] 03/31/2016 [facility] BMI (Body Mass Index) 26.7 kg/ m2 03/31/2016 [facility] BP Systolic 146 mm[Hg] 03/31/2016 [facility] Body Weight 2412.8 [oz_av] 03/31/2016 [facility] Body height 62.99 [in_us] 12/27/2015 [facility] Body Weight (Measured) 152.20 [lb_av] 12/27/2015 [facility] Systolic 126 mm[ Hg] 12/27/2015 [facility] Diastolic 70 mm[ Hg] 12/27/2015 [facility] Heart Beat 67 /min 12/27/2015 [facility] Body Temperature 97.6 [degF] 12/27/2015 [facility] Respiratory Rate 16 /min 12/27/2015 [facility] Body height 62.99 [in_us] 11/12/2015 [facility] Body Weight (Measured) 154.60 [lb_av] 11/12/2015 [facility] Systolic 130 mm[ Hg] 11/12/2015 [facility] Diastolic 58 mm[ Hg] 11/12/2015 [facility] Heart Beat 70 /min 11/12/2015 [facility] Body Temperature 98.0 [degF] 11/12/2015 [facility] Respiratory Rate 16 /min 11/12/2015 [facility] Body height 62.99 [in_us] 07/15/2015 [facility] Body Weight (Measured) 150.60 [lb_av] 07/15/2015 [facility] Systolic 136 mm[ Hg] 07/15/2015 [facility] Diastolic 58 mm[ Hg] 07/15/2015 [facility] Heart Beat 69 /min 07/15/2015 [facility] Body Temperature 97.8 [degF] 07/15/2015 [facility] Respiratory Rate 16 /min 07/15/2015 [facility] Body height 62.99 [in_us] 04/18/2015 [facility] Body Weight (Measured) 143.60 [lb_av] 04/18/2015 [facility] Systolic 146 mm[ Hg] 04/18/2015 [facility] Diastolic 62 mm[ Hg] 04/18/2015 [facility] Heart Beat 67 /min 04/18/2015 [facility] Body Temperature 97.4 [degF] 04/18/2015 [facility] Respiratory Rate 16 /min 04/18/2015 [facility] Encounters Location Location Details Encounter Type Encounter Number Reason For Visit Attending Provider ADM Date DC Date Status Source [id number] [facility] MARSHAL BOONE MD 01/27/2020 01/27/2020 [facility] - [facility] [address] Levi Suggs MD: [address], [address], [place] [address], Ph. [phone] [id number] Levi Suggs 12/04/2019 [facility] - [facility] [address] Levi Suggs MD: [address], [address], [place] [address], Ph. [phone] [id number] Levi Suggs 08/31/2019 [facility] 093 093 R [id number] AND CHRIS SUGGS MD 08/11/2019 08/29/2019 Active [facility] - [facility] [address] Levi Suggs MD: [address], [address], [place] [address], Ph. [phone] [id number] Levi Suggs 05/31/2019 [facility] 093 093 O [id number] TU TOLLIVER MD 04/27/2019 04/28/2019 [facility] 093 093 O [id number] I73.9 PERIPHERAL VASCU LAR DISEASE, UNSPECIFIED TODD DIAZ MD 04/06/2019 04/06/2019 Active [facility] - [facility] MOB [address] Levi Suggs MD: [address], [address], [place] [address], Ph. [phone] [id number] Levi Suggs 03/07/2019 [facility] 093 093 R [id number] AND CHRIS SUGGS MD 12/21/2018 02/28/2019 [facility] - H CPM_[facility] MOB [address] Levi Suggs MD: [address], [address], [place] [address], Ph. [phone] [id number] Levi Suggs 12/07/2018 [facility] [id number] LEVI SUGGS MD 11/16/2018 11/17/2018 [facility] - C[facility] MOB [address] Levi Suggs MD: [address], [address], [place] [address], Ph. [phone] [id number] Levi Suggs 11/16/2018 [facility] - [facility] MOB [address] Levi Suggs MD: [address], [address], [place] [address], Ph. [phone] [id number] Levi Suggs 11/16/2018 [facility] - [facility] MOB [address] Levi uSggs MD: [address], [address], [place] [address], Ph. [phone] [id number] Levi Suggs 09/12/2018 [facility] - [facility] M[facility] [address] Levi Suggs MD: [address], [address], [place] [address], Ph. [phone] [id number] Levi Suggs 09/12/2018 [facility] 093 093 N [id number] AND CHRIS SUGGS MD 08/30/2018 08/30/2018 [facility] 095 095 N [id number] TAHMINA DIAZ MD 08/23/2018 08/23/2018 Active [facility] - [facility] M[facility] [address] Levi Suggs MD: [address], [address], [place] [address], Ph. [phone] [id number] Levi Suggs 08/22/2018 [facility] - [facility] [address] Levi Suggs MD: [address], [address], [place] [address], Ph. [phone] [id number] Levi Suggs 08/22/2018 [facility] - [facility] M[facility] [address] Levi Suggs MD: [address], [address], [place] [address], Ph. [phone] [id number] Levi Suggs 08/22/2018 [facility] 093 093 I [id number] PERIPHERAL VASCULAR DI SEASE, UNSPECIFIED TODD DIAZ MD 08/12/2018 08/15/2018 [facility] 035 E [id number] VENU DE LA CRUZ MD 08/03/2018 08/03/2018 [facility] 093 093 O [id number] PERIPHERAL VASCULAR DI SEASE, UNSPECIFIED TODD DIAZ MD 08/03/2018 08/03/2018 Active [facility] - C[facility] MOB [address] Levi Suggs MD: [address], [address], [place] [address], Ph. [phone] [id number] Levi Suggs 07/21/2018 [facility] - [facility] [address] Levi Suggs MD: [address], [address], [place] [address], Ph. [phone] [id number] Levi Suggs 07/21/2018 [facility] 093 093 T [id number] CHEST PAIN EAGLE DEVINE MD 07/18/2018 07/19/[address] [facility] 093 093 N [id number] NIKOLAY JERONIMO DO 07/09/2018 07/09/[address] [facility] 093 093 O [id number] I73.9 - PERIPHERAL VAS CULAR DISEASE, UNSPECIFIED RICHELLE KAUFMAN MD 06/24/2018 06/24/2018 Active [facility] 093 093 O [id number] TAHMINA DIAZ MD 06/04/2018 06/04/2018 Active [facility] - H C[facility] MOB [address] Levi Suggs MD: [address], [address], [place] [address], Ph. [phone] [id number] Levi Suggs 05/10/2018 [facility] - [facility] [address] Levi Suggs MD: [address], [address], [place] [address], Ph. [phone] [id number] Levi Suggs 05/10/2018 [facility] - H CPM_FM MOB [address] Levi Suggs MD: [address], [address], [place] [address], Ph. [phone] [id number] Levi Suggs 01/04/2018 [facility] - [facility] M[facility] [address] Levi Suggs MD: [address], [address], [place] [address], Ph. [phone] [id number] Levi Suggs 01/04/2018 [facility] - [facility] M[facility] [address] Levi Suggs MD: [address], [address], [place] [address], Ph. [phone] [id number] Levi Suggs 11/25/2017 [facility] - [facility] MOB [address] Levi Suggs MD: [address], [address], [place] [address], Ph. [phone] [id number] Levi Suggs 11/25/2017 [facility] 093 093 O [id number] ALEE ARIAS DPM 11/08/2017 11/08/2017 [facility] 093 093 O [id number] ; DX: OTHER SPECIFIED DISORDERS OF KIDNEY AND URETER LEVI SUGGS MD 10/21/2017 10/21/2017 [facility] - CPM_[facility] MOB [address] Levi Suggs MD: [address], [address], [place] [address], Ph. [phone] [id number] Levi Suggs 10/14/2017 [facility] - [facility] MOB [address] Levi Suggs MD: [address], [address], [place] [address], Ph. [phone] [id number] Levi Suggs 10/14/2017 [facility] 093 093 O [id number] AND CHRIS SUGGS MD 09/10/2017 09/10/2017 [place] [id number] O [id number] AND CHRIS SUGGS MD 08/27/2017 08/27/2017 [facility] - C[facility] MOB [address] Levi Suggs MD: [address], [address], [place] [address], Ph. [phone] [id number] Levi Suggs 08/27/2017 [facility] - C[facility] MOB [address] Levi Suggs MD: [address], [address], [place] [address], Ph. [phone] [id number] Levi Suggs 08/27/2017 [facility] 096 E [id number] EMMA HAHN MD 08/19/2017 08/19/2017 [facility] - CPM[facility] MOB [address] Levi Suggs MD: [address], [address], [place] [address], Ph. [phone] [id number] Levi Suggs 08/17/2017 [facility] - C[facility] MOB [address] Levi Suggs MD: [address], [address], [place] [address], Ph. [phone] [id number] Levi Suggs 08/17/2017 [facility] - C[facility] MOB [address] Levi Suggs MD: [address], [address], [place] [address], Ph. [phone] [id number] Levi Suggs 08/17/2017 [facility] 096 I [id number] RESP, FAILURE, CHF EXACERBATION ANUSHA COMER MD 08/12/2017 08/14/2017 Active [facility] - CPM_FM MOB [address] Levi Suggs MD: [address], [address], [place] [address], Ph. [phone] [id number] Levi Suggs 07/12/2017 [facility] - C[facility] MOB [address] Levi Suggs MD: [address], [address], [place] [address], Ph. [phone] [id number] Levi Suggs 07/12/2017 [facility] 093 093 O [id number] VIN MCKINNEY MD 04/12/2017 04/12/2017 Active [facility] 093 093 O [id number] TAHMINA DIAZ MD 04/01/2017 04/01/2017 Active [facility] 093 093 R [id number] AND CHRIS SUGGS MD 03/09/2017 03/12/2017 [facility] 093 O [id number] AND CHRIS SUGGS MD 03/04/2017 03/04/2017 [facility] - CPM_FM MOB [address] Levi Suggs MD: [address], [address], [place] [address], Ph. [phone] [id number] Levi Suggs 02/26/2017 [facility] - CPM_[facility] MOB [address] Levi Suggs MD: [address], [address], [place] [address], Ph. [phone] [id number] Levi Suggs 02/26/2017 [facility] CPM_[facility] MOB [address] Levi Suggs MD: [address], [address], [place] [address], Ph. [phone] [id number] Levi Suggs 11/17/2016 [facility] MOB [address] Levi Suggs MD: [address], [address], [place] [address], Ph. [phone] [id number] Levi Suggs 11/17/2016 [facility] CPM_[facility] MOB [address] Levi Suggs MD: [address], [address], [place] [address], Ph. [phone] [id number] Levi Suggs 09/28/2016 [facility] C[facility] MOB [address] Levi Suggs MD: [address], [address], [place] [address], Ph. [phone] [id number] Levi Suggs 09/28/2016 [facility] C[facility] MOB [address] Levi Suggs MD: [address], [address], [place] [address], Ph. [phone] [id number] eLvi Suggs 08/05/2016 [facility] Levi Suggs MD 502 [id number] Carlos Enrique Lewis 07/31/2016 07/31/2016 [facility] [place] [facility] - H CPM_FM MOB [address] Levi Suggs MD: [address], [address], [place] [address], Ph. [phone] [id number] Levi Suggs 03/31/2016 [facility] Levi Suggs MD 502 [id number] Levi Suggs 03/25/2016 03/25/2016 [facility] Levi Suggs MD 502 [id number] Levi Suggs 03/20/2016 03/20/2016 [facility] Levi Suggs MD 502 [id number] Levi Suggs 03/16/2016 03/16/2016 [facility] Levi Suggs MD 502 [id number] Levi Suggs 02/17/2016 02/17/2016 [facility] Levi Suggs MD 208 [id number] Levi Suggs 01/27/2016 01/27/2016 [facility] Levi Suggs MD 208 [id number] Levi Suggs 12/27/2015 12/27/2015 [facility] Levi Suggs MD 208 [id number] Levi Suggs 12/11/2015 12/11/2015 [facility] 093 093 R [id number] AND CHRIS SUGGS MD 11/25/2015 12/25/[address] [facility] Levi Suggs MD 208 [id number] Levi Suggs 11/20/2015 11/20/2015 [facility] Levi Suggs MD 208 [id number] Levi Suggs 11/12/2015 11/12/2015 [facility] Levi Suggs MD 208 [id number] Levi Suggs 11/06/2015 11/06/2015 [facility] Levi Suggs MD 208 [id number] Levi Suggs 11/04/2015 11/04/2015 [facility] Levi Suggs MD 208 [id number] Levi Suggs 10/28/2015 10/28/2015 [facility] Levi Suggs MD [id number] Levi Suggs 09/27/2015 09/27/2015 [facility] Levi Suggs MD [id number] Levi Suggs 09/20/2015 09/20/2015 [facility] Levi Suggs MD [id number] Levi Suggs 09/11/2015 09/11/2015 [facility] Levi Suggs MD [id number] Levi Suggs 08/14/2015 08/14/2015 [facility] Levi Suggs MD [id number] Levi Suggs 08/11/2015 08/11/2015 [facility] Levi Suggs MD [id number] Levi Suggs 08/01/2015 08/01/2015 [facility] Levi Suggs MD 208 [id number] Levi Suggs 07/15/2015 07/15/2015 [facility] Levi Suggs MD [id number] Levi Suggs 07/12/2015 07/12/2015 [facility] 3 [id number] O [id number] AND CHRIS SUGGS MD 07/11/2015 07/11/2015 [facility] [id number] Levi Suggs 07/11/2015 07/11/2015 [facility] Levi Suggs MD [id number] Levi Suggs 06/28/2015 06/28/2015 [facility] Levi Suggs MD [id number] Levi Suggs 06/27/2015 06/27/2015 [facility] Levi Suggs MD [id number] Levi Suggs 05/31/2015 05/31/2015 [facility] Levi Suggs MD [id number] Levi Suggs 05/16/2015 05/16/2015 [facility] Levi Suggs MD [id number] Levi Suggs 04/29/2015 04/29/2015 [facility] Levi Suggs MD [id number] Levi Suggs 04/25/2015 04/25/2015 [facility] 093 O [id number] AND CHRIS SUGGS MD 04/22/2015 04/22/2015 [facility] [id number] Levi Suggs 04/22/2015 04/22/2015 [facility] Levi Suggs MD 208 [id number] Levi Suggs 04/18/2015 04/18/2015 [facility] Procedures Procedure Code Date Perfomer Comments Source XR, finger(s), 2 or more view 12/04/2019 [facility] Atherectomy 04/27/2019 [facility] XR SPINE LUMBAR 2/3V 26135 [facility]/16[facility]2018 [facility] 08[facility]13 [facility] Other 08/12 [facility] Other 06/[address] [facility] [address], abdomen + pelvis, w/ contrast 10/14/[address] [facility] [address], abdomen + pelvis, w/ contrast 08/27/2017 [facility] X[facility], hip, unilateral 03/31/2016 [facility] order 03/31/2016 [facility] OFFICE/OUTPATIENT VISIT, EST 9 9214 12/27/2015 [facility] OFFICE/OUTPATIENT VISIT, EST 9 9214 11/12/2015 [facility] Fluvirin vacc, 3 yrs & >, im Q 7 07/15/2015 [facility] [email or web address] Admin influenza virus vac G0008 07/15/2015 [facility] OFFICE/OUTPATIENT VISIT, EST 9 9214 07/15/2015 [facility] OFFICE/OUTPATIENT VISIT, NEW 9 9203 04/18/2015 [facility] Colonoscopy 10/11/2013 [facility] Unknown [facility] Plan of Care Plan of Care Date Source Reminders Provider Appointments None recorded. Lab HbA1C (Hemoglobin a1C), Blood 02/09/2020 [facility] CMP, Serum or Plasma 02/09/2020 [facility] Lipid Panel, Blood 02/09/2020 [facility] TSH + Free T4, Serum 02/09/2020 [facility] Referral None recorded. Procedures None recorded. Surgeries None recorded. Imaging XR, Finger(s), 2 or More View 12/04/2019 [facility] ([employer]) 02/09/2020 [facility] Rem[facility] Provider Appointments None recorded. Lab HbA1C (Hemoglobin a1C), Blood 02/09/2020 [facility] CMP, Serum or Plasma 02/09/2020 [facility] Lipid Panel, Blood 02/09/2020 [facility] TSH + Free T4, Serum 02/09/2020 [facility] Referral None recorded. Procedures None recorded. Surgeries None recorded. Imaging XR, Finger(s), 2 or More View 12/04/2019 [facility] [place] ([facility]) 02/09/2020 [facility] Rem[facility]ers Provider Appointments None recorded. Lab HbA1C (Hemoglobin a1C), Blood 02/09/2020 [facility] CMP, Serum or Plasma 02/09/2020 [facility] Lipid Panel, Blood 02/09/2020 [facility] TSH + Free T4, Serum 02/09/2020 [facility] Referral None recorded. Procedures None recorded. Surgeries None recorded. Imaging XR, Finger(s), 2 or More View 12/04/2019 [facility] 02/09/2020 [facility] Provider Appointments None recorded. Lab HbA1C (Hemoglobin a1C), Blood 02/09/2020 [facility] CMP, Serum or Plasma 02/09/2020 [facility] Lipid Panel, Blood 02/09/2020 [facility] TSH + Free T4, Serum 02/09/2020 [facility] Referral None recorded. Procedures None recorded. Surgeries None recorded. Imaging XR, Finger(s), 2 or More View 12/04/2019 [facility] ([facility] 02/09/2020 [facility] Provider Appointments None recorded. Lab HbA1C (Hemoglobin a1C), Blood 02/09/2020 [facility] CMP, Serum or Plasma 02/09/2020 [facility] Lipid Panel, Blood 02/09/2020 [facility] TSH + Free T4, Serum 02/09/2020 [facility] Referral None recorded. Procedures None recorded. Surgeries None recorded. Imaging XR, Finger(s), 2 or More View 12/04/2019 [facility] [employer] [place] ([facility]) 12/04/2019 [facility] Provider Appointments Short 12/04/2019 1:40PM Levi Suggs MD Lab HbA1C (Hemoglobin a1C), Blood 11/11/2019 [facility] CMP, Serum or Plasma 11/11/2019 [facility] Lipid Panel, Serum 11/11/2019 [facility] TSH, Serum or Plasma 11/11/2019 [facility] T4, Free, Serum 11/11/2019 [facility] Referral None recorded. Procedures None recorded. Surgeries None recorded. Imaging None recorded. 11/11/2019 [facility] Provider Appointments Short 12/04/2019 1:40PM Levi Suggs MD Lab HbA1C (Hemoglobin a1C), Blood 11/11/2019 [facility] CMP, Serum or Plasma 11/11/2019 [facility] Lipid Panel, Serum 11/11/2019 [facility] TSH, Serum or Plasma 11/11/2019 [facility] T4, Free, Serum 11/11/2019 [facility] Referral None recorded. Procedures None recorded. Surgeries None recorded. Imaging None recorded. 11/11/2019 [facility] Provider Appointments Short 12/04/2019 1:40PM Levi Suggs MD Lab HbA1C (Hemoglobin a1C), Blood 11/11/2019 [facility] CMP, Serum or Plasma 11/11/2019 [facility] Lipid Panel, Serum 11/11/2019 [facility] TSH, Serum or Plasma 11/11/2019 [facility] T4, Free, Serum 11/11/2019 [facility] Referral None recorded. Procedures None recorded. Surgeries None recorded. Imaging None recorded. 11/11/2019 [facility] Provider Appointments Short 12/04/2019 1:40PM Levi Suggs MD Lab HbA1C (Hemoglobin a1C), Blood 11/11/2019 [facility] CMP, Serum or Plasma 11/11/2019 [facility] Lipid Panel, Serum 11/11/2019 [facility] TSH, Serum or Plasma 11/11/2019 [facility] T4, Free, Serum 11/11/2019 [facility] Referral None recorded. Procedures None recorded. Surgeries None recorded. Imaging None recorded. 11/11/2019 [facility] Provider Appointments Short 12/04/2019 1:40PM Levi Suggs MD Lab HbA1C (Hemoglobin a1C), Blood 11/11/2019 [facility] CMP, Serum or Plasma 11/11/2019 [facility] Lipid Panel, Serum 11/11/2019 [facility] TSH, Serum or Plasma 11/11/2019 [facility] T4, Free, Serum 11/11/2019 [facility] Referral None recorded. Procedures None recorded. Surgeries None recorded. Imaging None recorded. 11/11/2019 [facility] Provider Appointments Short 12/04/2019 1:40PM Levi Suggs MD Lab HbA1C (Hemoglobin a1C), Blood 11/11/2019 [facility] CMP, Serum or Plasma 11/11/2019 [facility] Lipid Panel, Serum 11/11/2019 [facility] TSH, Serum or Plasma 11/11/2019 [facility] T4, Free, Serum 11/11/2019 [facility] Referral None recorded. Procedures None recorded. Surgeries None recorded. Imaging None recorded. 08/31/2019 [facility] Provider Appointments Short 20 08/31/2019 1:40PM Levi Suggs MD Lab HbA1C (Hemoglobin a1C), Blood 08/11/2019 [facility] CMP, Serum or Plasma 08/11/2019 [facility] Lipid Panel, Serum 08/11/2019 [facility] TSH, Serum or Plasma 08/11/2019 [facility] T4, Free, Serum 08/11/2019 [facility] CBC W/ Diff 08/11/2019 [facility] Referral None recorded. Procedures None recorded. Surgeries None recorded. Imaging None recorded. 08/11/2019 [facility] Provider Appointments Short 20 08/31/2019 1:40PM Levi Suggs MD Lab HbA1C (Hemoglobin a1C), Blood 08/11/2019 [facility] CMP, Serum or Plasma 08/11/2019 [facility] Lipid Panel, Serum 08/11/2019 [facility] TSH, Serum or Plasma 08/11/2019 [facility] T4, Free, Serum 08/11/2019 [facility] CBC W/ Diff 08/11/2019 [facility] Referral None recorded. Procedures None recorded. Surgeries None recorded. Imaging None recorded. 08/11/2019 [facility] Provider Appointments Short 20 08/31/2019 1:40PM Levi Suggs MD Lab HbA1C (Hemoglobin a1C), Blood 08/11/2019 [facility] CMP, Serum or Plasma 08/11/2019 [facility] Lipid Panel, Serum 08/11/2019 [facility] TSH, Serum or Plasma 08/11/2019 [facility] T4, Free, Serum 08/11/2019 [facility] CBC W/ Diff 08/11/2019 [facility] Referral None recorded. Procedures None recorded. Surgeries None recorded. Imaging None recorded. 08/11/2019 [facility] Provider Appointments Short 20 08/31/2019 1:40PM Levi Suggs MD Lab HbA1C (Hemoglobin a1C), Blood 08/11/2019 [facility] CMP, Serum or Plasma 08/11/2019 [facility] Lipid Panel, Serum 08/11/2019 [facility] TSH, Serum or Plasma 08/11/2019 [facility] T4, Free, Serum 08/11/2019 [facility] CBC W/ Diff 08/11/2019 [facility] Referral None recorded. Procedures None recorded. Surgeries None recorded. Imaging None recorded. 08/11/2019 [facility] Provider Appointments Short 08/31/2019 1:40PM Levi Suggs MD Lab HbA1C (Hemoglobin a1C), Blood 08/11/2019 [facility] CMP, Serum or Plasma 08/11/2019 [facility] Lipid Panel, Serum 08/11/2019 [facility] TSH, Serum or Plasma 08/11/2019 [facility] T4, Free, Serum 08/11/2019 [facility] CBC W/ Diff 08/11/2019 [facility] Referral None recorded. Procedures None recorded. Surgeries None recorded. Imaging None recorded. 08/11/2019 [facility] Provider Appointments Short 20 08/31/2019 1:40PM Levi Suggs MD Lab HbA1C (Hemoglobin a1C), Blood 08/11/2019 [facility] CMP, Serum or Plasma 08/11/2019 [facility] Lipid Panel, Serum 08/11/2019 [facility] TSH, Serum or Plasma 08/11/2019 [facility] T4, Free, Serum 08/11/2019 [facility] CBC W/ Diff 08/11/2019 [facility] Referral None recorded. Procedures None recorded. Surgeries None recorded. Imaging None recorded. 08/11/2019 [facility] Provider Appointments Short 20 08/31/2019 1:40PM Levi Suggs MD Lab HbA1C (Hemoglobin a1C), Blood 08/11/2019 [facility] CMP, Serum or Plasma 08/11/2019 [facility] Lipid Panel, Serum 08/11/2019 [facility] TSH, Serum or Plasma 08/11/2019 [facility] T4, Free, Serum 08/11/2019 [facility] CBC W/ Diff 08/11/2019 [facility] Referral None recorded. Procedures None recorded. Surgeries None recorded. Imaging None recorded. 05/31/2019 [facility] Provider Appointments Short 06/08/2019 1:20PM Levi Suggs MD Lab TSH, Serum or Plasma 05/11/2019 [facility] T4, Free, Serum 05/11/2019 [facility] HbA1C (Hemoglobin a1C), Blood 05/11/2019 [facility] CMP, Serum or Plasma 05/11/2019 [facility] Lipid Panel, Serum 05/11/2019 [facility] Referral None recorded. Procedures None recorded. Surgeries None recorded. Imaging None recorded. 05/11/2019 [facility] Provider Appointments Short 06/08/2019 1:20PM Levi Suggs MD Lab TSH, Serum or Plasma 05/11/2019 [facility] T4, Free, Serum 05/11/2019 [facility] HbA1C (Hemoglobin a1C), Blood 05/11/2019 [facility] CMP, Serum or Plasma 05/11/2019 [facility] Lipid Panel, Serum 05/11/2019 [facility] Referral None recorded. Procedures None recorded. Surgeries None recorded. Imaging None recorded. 05/11/2019 [facility] Provider Appointments Short 06/08/2019 1:20PM Levi Suggs MD Lab TSH, Serum or Plasma 05/11/2019 [facility] T4, Free, Serum 05/11/2019 [facility] HbA1C (Hemoglobin a1C), Blood 05/11/2019 [facility] CMP, Serum or Plasma 05/11/2019 [facility] Lipid Panel, Serum 05/11/2019 [facility] Referral None recorded. Procedures None recorded. Surgeries None recorded. Imaging None recorded. 05/11/2019 [facility] Provider Appointments Short 06/08/2019 1:20PM Levi Suggs MD Lab TSH, Serum or Plasma 05/11/2019 [facility] T4, Free, Serum 05/11/2019 [facility] HbA1C (Hemoglobin a1C), Blood 05/11/2019 [facility] CMP, Serum or Plasma 05/11/2019 [facility] Lipid Panel, Serum 05/11/2019 [facility] Referral None recorded. Procedures None recorded. Surgeries None recorded. Imaging None recorded. 05/11/2019 [facility] Provider Appointments Short 06/08/2019 1:20PM Levi Suggs MD Lab TSH, Serum or Plasma 05/11/2019 [facility] T4, Free, Serum 05/11/2019 [facility] HbA1C (Hemoglobin a1C), Blood 05/11/2019 [facility] CMP, Serum or Plasma 05/11/2019 [facility] Lipid Panel, Serum 05/11/2019 [facility] Referral None recorded. Procedures None recorded. Surgeries None recorded. Imaging None recorded. [facility] Short 06/08/2019 1:20PM Levi Suggs MD Lab TSH, Serum or Plasma 05/11/2019 [facility] T4, Free, Serum 05/11/2019 [facility] HbA1C (Hemoglobin a1C), Blood 05/11/2019 [facility] CMP, Serum or Plasma 05/11/2019 [facility] Lipid Panel, Serum 05/11/2019 [facility] Referral None recorded. Procedures None recorded. Surgeries None recorded. Imaging None recorded. 03/07/[facility] Short 03/07/2019 1:20PM eLvi Suggs MD Lab HbA1C (Hemoglobin a1C), Blood 03/06/2019 [email or web address] TSH, Serum or Plasma 03/06/2019 [facility] T4, Free, Serum 03/06/2019 [facility] CMP, Serum or Plasma 03/06/2019 [facility] Lipid Panel, Blood 03/06/2019 [facility] CBC W/ Auto Diff 03/06/2019 [facility] Iron + TIBC + Ferritin, Serum 03/06/2019 [facility] Referral None recorded. Procedures None recorded. Surgeries None recorded. Imaging None recorded. 03/06/[facility] Short 03/07/2019 1:20PM Levi Suggs MD Lab HbA1C (Hemoglobin a1C), Blood 03/06/2019 [email or web address] TSH, Serum or Plasma 03/06/2019 [facility] T4, Free, Serum 03/06/2019 [facility] CMP, Serum or Plasma 03/06/2019 [facility] Lipid Panel, Blood 03/06/2019 [facility] CBC W/ Auto Diff 03/06/2019 [facility] Iron + TIBC + Ferritin, Serum 03/06/2019 [facility] Referral None recorded. Procedures None recorded. Surgeries None recorded. Imaging None recorded. 03/06/[facility] Short 03/07/2019 1:20PM Levi Suggs MD Lab HbA1C (Hemoglobin a1C), Blood 03/06/2019 [facility] TSH, Serum or Plasma 03/06/2019 [facility] T4, Free, Serum 03/06/2019 [facility] CMP, Serum or Plasma 03/06/2019 [facility] Lipid Panel, Blood 03/06/2019 [facility] CBC W/ Auto Diff 03/06/2019 [facility] Iron + TIBC + Ferritin, Serum 03/06/2019 [facility] Referral None recorded. Procedures None recorded. Surgeries None recorded. Imaging None recorded. [facility] Short 03/07/2019 1:20PM Levi Suggs MD Lab HbA1C (Hemoglobin a1C), Blood 03/06/2019 [email or web address] TSH, Serum or Plasma 03/06/2019 [facility] T4, Free, Serum 03/06/2019 [facility] CMP, Serum or Plasma 03/06/2019 [facility] Lipid Panel, Blood 03/06/2019 [facility] CBC W/ Auto Diff 03/06/2019 [facility] Iron + TIBC + Ferritin, Serum 03/06/2019 [facility] Referral None recorded. Procedures None recorded. Surgeries None recorded. Imaging None recorded. 03/06/2019 [facility] Provider Appointments Short 03/07/2019 1:20PM Levi Suggs MD Lab HbA1C (Hemoglobin a1C), Blood 03/06/2019 [facility] TSH, Serum or Plasma 03/06/2019 [facility] T4, Free, Serum 03/06/2019 [facility] CMP, Serum or Plasma 03/06/2019 [facility] Lipid Panel, Blood 03/06/2019 [facility] CBC W/ Auto Diff 03/06/2019 [facility] Iron + TIBC + Ferritin, Serum 03/06/2019 [facility] Referral None recorded. Procedures None recorded. Surgeries None recorded. Imaging None recorded. 03/06/2019 [facility] Provider Appointments Short 03/07/2019 1:20PM Levi Suggs MD Lab HbA1C (Hemoglobin a1C), Blood 03/06/2019 [facility] TSH, Serum or Plasma 03/06/2019 [facility] T4, Free, Serum 03/06/2019 [facility] CMP, Serum or Plasma 03/06/2019 [facility] Lipid Panel, Blood 03/06/2019 [facility] CBC W/ Auto Diff 03/06/2019 [facility] Iron + TIBC + Ferritin, Serum 03/06/2019 [facility] Referral None recorded. Procedures None recorded. Surgeries None recorded. Imaging None recorded. 03/06/2019 [facility] Provider Appointments Short 03/07/2019 1:20PM Levi Suggs MD Lab HbA1C (Hemoglobin a1C), Blood 03/06/2019 [facility] TSH, Serum or Plasma 03/06/2019 [facility] T4, Free, Serum 03/06/2019 [facility] CMP, Serum or Plasma 03/06/2019 [facility] Lipid Panel, Blood 03/06/2019 [facility] CBC W/ Auto Diff 03/06/2019 [facility] Iron + TIBC + Ferritin, Serum 03/06/2019 [facility] Referral None recorded. Procedures None recorded. Surgeries None recorded. Imaging None recorded. [facility] Short 03/07/2019 1:20PM Levi Suggs MD Lab HbA1C (Hemoglobin a1C), Blood 03/06/2019 [facility] TSH, Serum or Plasma 03/06/2019 [facility] T4, Free, Serum 03/06/2019 [facility] CMP, Serum or Plasma 03/06/2019 [facility] Lipid Panel, Blood 03/06/2019 [facility] CBC W/ Auto Diff 03/06/2019 [facility] Iron + TIBC + Ferritin, Serum 03/06/2019 [facility] Referral None recorded. Procedures None recorded. Surgeries None recorded. Imaging None recorded. 12/07/2018 [facility] Provider Appointments Short 20 12/07/2018 11:20AM Levi Suggs MD Lab None recorded. Referral None recorded. Procedures None recorded. Surgeries None recorded. Imaging XR, Lumbosacral Spine, 2 or 3 View 11/16/2018 [facility] ([facility]) 11/16/2018 [facility] Provider Appointments Short 20 11/16/2018 11:00AM Levi Suggs MD Lab TSH + Free T4, Serum 11/03/2018 [facility] CMP, Serum or Plasma 11/03/2018 [facility] Lipid Panel, Blood 11/03/2018 [email or web address] HbA1C (Hemoglobin a1C), Blood 11/03/2018 [facility] Microalbumin, Urine 11/03/2018 [facility] Referral None recorded. Procedures None recorded. Surgeries None recorded. Imaging None recorded. 11/03/2018 [facility] Provider Appointments Short 20 11/16/2018 11:00AM Levi Suggs MD Lab TSH + Free T4, Serum 11/03/2018 [facility] CMP, Serum or Plasma 11/03/2018 [facility] Lipid Panel, Blood 11/03/2018 [facility] HbA1C (Hemoglobin a1C), Blood 11/03/2018 [facility] Microalbumin, Urine 11/03/2018 [facility] Referral None recorded. Procedures None recorded. Surgeries None recorded. Imaging None recorded. 11/03/2018 [facility] Provider Appointments Short 20 11/16/2018 11:00AM Levi Suggs MD Lab TSH + Free T4, Serum 11/03/2018 [facility] CMP, Serum or Plasma 11/03/2018 [facility] Lipid Panel, Blood 11/03/2018 [facility] HbA1C (Hemoglobin a1C), Blood 11/03/2018 [facility] Microalbumin, Urine 11/03/2018 [facility] Referral None recorded. Procedures None recorded. Surgeries None recorded. Imaging None recorded. 11/03/2018 [facility] Provider Appointments Short 20 11/16/2018 11:00AM Levi Suggs MD Lab TSH + Free T4, Serum 11/03/2018 [facility] CMP, Serum or Plasma 11/03/2018 [facility] Lipid Panel, Blood 11/03/2018 [facility] HbA1C (Hemoglobin a1C), Blood 11/03/2018 [facility] Microalbumin, Urine 11/03/2018 [facility] Referral None recorded. Procedures None recorded. Surgeries None recorded. Imaging None recorded. 11/03/2018 [facility] Provider Appointments Short 20 11/16/2018 11:00AM Levi Suggs MD Lab TSH + Free T4, Serum 11/03/2018 [facility] CMP, Serum or Plasma 11/03/2018 [facility] Lipid Panel, Blood 11/03/2018 [facility] HbA1C (Hemoglobin a1C), Blood 11/03/2018 [facility] Microalbumin, Urine 11/03/2018 [facility] Referral None recorded. Procedures None recorded. Surgeries None recorded. Imaging None recorded. 11/03/[facility] Short 20 11/16/2018 11:00AM Levi Suggs MD Lab None recorded. Referral None recorded. Procedures None recorded. Surgeries None recorded. Imaging None recorded. 09/12/2018 [facility] Provider Appointments Short 20 09/12/2018 4:00PM Levi Suggs MD Short 20 11/16/2018 11:00AM Levi Suggs MD Lab CBC W/ Auto Diff 08/22/2018 [facility] Iron + TIBC + Ferritin, Serum 08/22/2018 [facility] CMP, Serum or Plasma 08/22/2018 [facility] Referral None recorded. Procedures None recorded. Surgeries None recorded. Imaging None recorded. 08/22/2018 [facility] Provider Appointments Short 20 09/12/2018 4:00PM Levi Suggs MD Short 20 11/16/2018 11:00AM Levi Suggs MD Lab CBC W/ Auto Diff 08/22/2018 [facility] Iron + TIBC + Ferritin, Serum 08/22/2018 [facility] CMP, Serum or Plasma 08/22/2018 [facility] Referral None recorded. Procedures None recorded. Surgeries None recorded. Imaging None recorded. 08/22/2018 [facility] Provider Appointments Short 20 09/12/2018 4:00PM Levi Suggs MD Short 11/16/2018 11:00AM Levi Suggs MD Lab CBC W/ Auto Diff 08/22/2018 [facility] Iron + TIBC + Ferritin, Serum 08/22/2018 [facility] CMP, Serum or Plasma 08/22/2018 [facility] Referral None recorded. Procedures None recorded. Surgeries None recorded. Imaging None recorded. 08/22/[facility] Short 09/12/2018 4:00PM Levi Suggs MD Short 20 11/16/2018 11:00AM Levi Suggs MD Lab CBC W/ Auto Diff 08/22/2018 [facility] Iron + TIBC + Ferritin, Serum 08/22/2018 [facility] CMP, Serum or Plasma 08/22/2018 [email or web address] Referral None recorded. Procedures None recorded. Surgeries None recorded. Imaging None recorded. 08/22/2018 [facility] Provider Appointments Short 11/16/2018 11:00AM Levi Suggs MD Lab None recorded. Referral None recorded. Procedures None recorded. Surgeries None recorded. Imaging None recorded. 07/21/2018 [facility] Provider Appointments Short 20 11/16/2018 11:00AM Levi Suggs MD Lab TSH + Free T4, Serum 11/03/2018 [email or web address] CMP, Serum or Plasma 11/03/2018 [email or web address] Lipid Panel, Blood 11/03/2018 [email or web address] HbA1C (Hemoglobin a1C), Blood 11/03/2018 [email or web address] Microalbumin, Urine 11/03/2018 [email or web address] Referral None recorded. Procedures None recorded. Surgeries None recorded. Imaging None recorded. 05/10/2018 [facility] Provider Appointments Short 20 03/28/2018 2:30PM Levi Suggs MD Lab None recorded. Referral None recorded. Procedures None recorded. Surgeries None recorded. Imaging None recorded. 01/04/2018 [facility] Provider Appointments Short 20 03/23/2018 11:00AM Levi Suggs MD Lab None recorded. Referral None recorded. Procedures None recorded. Surgeries None recorded. Imaging None recorded. 11/25/2017 [facility] Provider Appointments Short 11/25/2017 9:20AM Levi Suggs MD Lab CMP, Serum or Plasma 11/25/2017 [facility] Lipid Panel, Blood 11/25/2017 [facility] HbA1C (Hemoglobin a1C), Blood 11/25/2017 [facility] TSH, Serum or Plasma 11/25/2017 [facility] T4, Free, Serum 11/25/2017 [facility] CBC W/ Diff 11/25/2017 [facility] Referral None recorded. Procedures None recorded. Surgeries None recorded. Imaging CT, Abdomen + Pelvis, W/ Contrast 10/14/2017 [facility] ([facility]) 11/25/2017 [facility] Provider Appointments Short 11/25/2017 9:20AM Levi Suggs MD Lab CMP, Serum or Plasma 11/25/2017 [facility] Lipid Panel, Blood 11/25/2017 [facility] HbA1C (Hemoglobin a1C), Blood 11/25/2017 [facility] TSH, Serum or Plasma 11/25/2017 [facility] T4, Free, Serum 11/25/2017 [facility] CBC W/ Diff 11/25/2017 [facility] Referral None recorded. Procedures None recorded. Surgeries None recorded. Imaging CT, Abdomen + Pelvis, W/ Contrast 10/14/2017 [facility] ([facility]) 11/25/2017 [facility] Provider Appointments Short 11/25/2017 9:20AM Levi Suggs MD Lab CMP, Serum or Plasma 11/25/2017 [facility] Lipid Panel, Blood 11/25/2017 [facility] HbA1C (Hemoglobin a1C), Blood 11/25/2017 [facility] TSH, Serum or Plasma 11/25/2017 [facility] T4, Free, Serum 11/25/2017 [facility] CBC W/ Diff 11/25/2017 [facility] Referral None recorded. Procedures None recorded. Surgeries None recorded. Imaging CT, Abdomen + Pelvis, W/ Contrast 10/14/2017 [facility] ([facility]) 11/25/2017 [facility] Provider Appointments Short 11/25/2017 9:20AM Levi Suggs MD Lab CMP, Serum or Plasma 11/25/2017 [facility] Lipid Panel, Blood 11/25/2017 [facility] HbA1C (Hemoglobin a1C), Blood 11/25/2017 [facility] TSH, Serum or Plasma 11/25/2017 [facility] T4, Free, Serum 11/25/2017 [facility] CBC W/ Diff 11/25/2017 [facility] Referral None recorded. Procedures None recorded. Surgeries None recorded. Imaging CT, Abdomen + Pelvis, W/ Contrast 10/14/2017 [facility] ([facility]) 11/25/2017 [facility] Provider Appointments Short 11/25/2017 9:20AM Levi Suggs MD Lab CMP, Serum or Plasma 11/25/2017 [facility] Lipid Panel, Blood 11/25/2017 [facility] HbA1C (Hemoglobin a1C), Blood 11/25/2017 [facility] TSH, Serum or Plasma 11/25/2017 [facility] T4, Free, Serum 11/25/2017 [facility] CBC W/ Diff 11/25/2017 [facility] Referral None recorded. Procedures None recorded. Surgeries None recorded. Imaging CT, Abdomen + Pelvis, W/ Contrast 10/14/2017 [facility] ([facility]) 11/25/2017 [facility] Provider Appointments Short 11/25/2017 9:20AM Levi Suggs MD Lab CMP, Serum or Plasma 11/25/2017 [facility] Lipid Panel, Blood 11/25/2017 [facility] HbA1C (Hemoglobin a1C), Blood 11/25/2017 [facility] TSH, Serum or Plasma 11/25/2017 [facility] T4, Free, Serum 11/25/2017 [facility] CBC W/ Diff 11/25/2017 [facility] Referral None recorded. Procedures None recorded. Surgeries None recorded. Imaging CT, Abdomen + Pelvis, W/ Contrast 10/14/2017 [facility] ([facility]) 11/25/2017 [facility] Provider Appointments Short 11/25/2017 9:20AM Levi Suggs MD Lab CMP, Serum or Plasma 11/25/2017 [facility] Lipid Panel, Blood 11/25/2017 [facility] HbA1C (Hemoglobin a1C), Blood 11/25/2017 [facility] TSH, Serum or Plasma 11/25/2017 [facility] T4, Free, Serum 11/25/2017 [facility] CBC W/ Diff 11/25/2017 [facility] Referral None recorded. Procedures None recorded. Surgeries None recorded. Imaging CT, Abdomen + Pelvis, W/ Contrast 10/14/2017 [facility] ([facility]) 10/14/2017 [facility] Provider Appointments None recorded. Lab None recorded. Referral None recorded. Procedures None recorded. Surgeries None recorded. Imaging CT, Abdomen + Pelvis, W/ Contrast 08/27/2017 [facility] ([facility]) 08/27/2017 [facility] Provider Appointments Short 20 08/27/2017 1:30PM Levi Suggs MD Lab None recorded. Referral None recorded. Procedures None recorded. Surgeries None recorded. Imaging None recorded. 08/17/2017 [facility] Provider Appointments Short 20 08/27/2017 1:30PM Levi Suggs MD Lab None recorded. Referral None recorded. Procedures None recorded. Surgeries None recorded. Imaging None recorded. 07/12/2017 [facility] Provider Appointments Short 20 08/27/2017 1:30PM Levi Suggs MD Lab TSH + Free T4, Serum 03/22/2017 [facility] CMP, Serum or Plasma 03/22/2017 [facility] Lipid Panel, Blood 03/22/2017 [facility] HbA1C (Hemoglobin a1C), Blood 03/22/2017 [facility] Referral Physical Therapy Referral 02/26/2017 [facility] Procedures None recorded. Surgeries None recorded. Imaging None recorded. 03/22/2017 [facility] Provider Appointments Short 20 08/27/2017 1:30PM Levi Suggs MD Lab TSH + Free T4, Serum 03/22/2017 [facility] CMP, Serum or Plasma 03/22/2017 [facility] Lipid Panel, Blood 03/22/2017 [facility] HbA1C (Hemoglobin a1C), Blood 03/22/2017 [facility] Referral Physical Therapy Referral 02/26/2017 [facility] Procedures None recorded. Surgeries None recorded. Imaging None recorded. 03/22/2017 [facility] Provider Appointments Short 20 08/27/2017 1:30PM Levi Suggs MD Lab TSH + Free T4, Serum 03/22/2017 [facility] CMP, Serum or Plasma 03/22/2017 [facility] Lipid Panel, Blood 03/22/2017 [facility] HbA1C (Hemoglobin a1C), Blood 03/22/2017 [facility] Referral Physical Therapy Referral 02/26/2017 [facility] Procedures None recorded. Surgeries None recorded. Imaging None recorded. 03/22/2017 [facility] Provider Appointments Short 20 08/27/2017 1:30PM Levi Suggs MD Lab TSH + Free T4, Serum 03/22/2017 [facility] CMP, Serum or Plasma 03/22/2017 [facility] Lipid Panel, Blood 03/22/2017 [facility] HbA1C (Hemoglobin a1C), Blood 03/22/2017 [facility] Referral Physical Therapy Referral 02/26/2017 [facility] Procedures None recorded. Surgeries None recorded. Imaging None recorded. 03/22/2017 [facility] Provider Appointments Short 20 08/27/2017 1:30PM Levi Suggs MD Lab TSH + Free T4, Serum 03/22/2017 [facility] CMP, Serum or Plasma 03/22/2017 [facility] Lipid Panel, Blood 03/22/2017 [facility] HbA1C (Hemoglobin a1C), Blood 03/22/2017 [facility] Referral Physical Therapy Referral 02/26/2017 [facility] Procedures None recorded. Surgeries None recorded. Imaging None recorded. 02/26/2017 [facility] Provider Appointments Short 20 12/28/2016 11:30AM Levi Suggs MD Lab HbA1C (Hemoglobin a1C), Blood 12/20/2016 [facility] TSH + Free T4, Serum 12/20/2016 [facility] CMP, Serum or Plasma 12/20/2016 [facility] Lipid Panel, Blood 12/20/2016 [facility] Referral None recorded. Procedures None recorded. Surgeries None recorded. Imaging None recorded. 12/20/2016 [facility] Provider Appointments Short 20 12/28/2016 11:30AM Levi Suggs MD Lab HbA1C (Hemoglobin a1C), Blood 12/20/2016 [facility] TSH + Free T4, Serum 12/20/2016 [facility] CMP, Serum or Plasma 12/20/2016 [facility] Lipid Panel, Blood 12/20/2016 [facility] Referral None recorded. Procedures None recorded. Surgeries None recorded. Imaging None recorded. 12/20/[facility] Short 20 12/28/2016 11:30AM Levi Suggs MD Lab HbA1C (Hemoglobin a1C), Blood 12/20/2016 [facility] TSH + Free T4, Serum 12/20/2016 [facility] CMP, Serum or Plasma 12/20/2016 [facility] Lipid Panel, Blood 12/20/2016 [facility] Referral None recorded. Procedures None recorded. Surgeries None recorded. Imaging None recorded. 12/20/[facility] Short 12/28/2016 11:30AM Levi Suggs MD Lab HbA1C (Hemoglobin a1C), Blood 12/20/2016 [facility] TSH + Free T4, Serum 12/20/2016 [facility] CMP, Serum or Plasma 12/20/2016 [facility] Lipid Panel, Blood 12/20/2016 [facility] Referral None recorded. Procedures None recorded. Surgeries None recorded. Imaging None recorded. 12/20/2016 [facility] Provider Appointments Short 01/08/2017 1:00PM Levi Suggs MD Lab None recorded. Referral None recorded. Procedures None recorded. Surgeries None recorded. Imaging None recorded. 11/17/2016 [facility] Provider Appointments Short 20 12/28/2016 11:30AM Levi Suggs MD Lab HbA1C (Hemoglobin a1C), Blood 12/20/2016 [facility] TSH + Free T4, Serum 12/20/2016 [facility] CMP, Serum or Plasma 12/20/2016 [facility] Lipid Panel, Blood 12/20/2016 [facility] Referral None recorded. Procedures None recorded. Surgeries None recorded. Imaging None recorded. 09/28/2016 [email or web address] Provider Appointments Short 11/16/2018 11:00AM Levi Suggs MD Lab TSH + Free T4, Serum 09/22/2016 [facility] Lipid Panel, Blood 09/22/2016 [facility] CMP, Serum or Plasma 09/22/2016 [facility] HbA1C (Hemoglobin a1C), Blood 09/22/2016 [facility] Referral None recorded. Procedures None recorded. Surgeries None recorded. Imaging XR, Hip, Unilateral 03/31/2016 Unlisted Imaging Order 03/31/2016 [facility] 09/22/2016 [email or web address] Provider Appointments Short 20 11/16/2018 11:00AM Levi Suggs MD Lab TSH + Free T4, Serum 09/22/2016 [facility] Lipid Panel, Blood 09/22/2016 [facility] CMP, Serum or Plasma 09/22/2016 [facility] HbA1C (Hemoglobin a1C), Blood 09/22/2016 [facility] Referral None recorded. Procedures None recorded. Surgeries None recorded. Imaging XR, Hip, Unilateral 03/31/2016 Unlisted Imaging Order 03/31/2016 [facility]) 09/22/2016 [email or web address] Provider Appointments Short 20 11/16/2018 11:00AM Levi Suggs MD Lab TSH + Free T4, Serum 09/22/2016 [facility] Lipid Panel, Blood 09/22/2016 [facility] CMP, Serum or Plasma 09/22/2016 [facility] HbA1C (Hemoglobin a1C), Blood 09/22/2016 [facility] Referral None recorded. Procedures None recorded. Surgeries None recorded. Imaging XR, Hip, Unilateral 03/31/2016 Unlisted Imaging Order 03/31/2016 [facility]) 09/22/2016 [email or web address] Provider Appointments Short 20 11/16/2018 11:00AM Levi Suggs MD Lab TSH + Free T4, Serum 09/22/2016 [facility] Lipid Panel, Blood 09/22/2016 [facility] CMP, Serum or Plasma 09/22/2016 [facility] HbA1C (Hemoglobin a1C), Blood 09/22/2016 [facility] Referral None recorded. Procedures None recorded. Surgeries None recorded. Imaging XR, Hip, Unilateral 03/31/2016 Unlisted Imaging Order 03/31/2016 [facility]) 09/22/2016 [facility] Provider Appointments 11/16/2018 11:00AM Levi Suggs MD Lab TSH + Free T4, Serum 09/22/2016 [facility] Lipid Panel, Blood 09/22/2016 [facility] CMP, Serum or Plasma 09/22/2016 [facility] HbA1C (Hemoglobin a1C), Blood 09/22/2016 [facility] Referral None recorded. Procedures None recorded. Surgeries None recorded. Imaging XR, Hip, Unilateral 03/31/2016 Unlisted Imaging Order 03/31/2016 [facility]) 03/31/2016 [facility] Social History Social History Date Source TypeDescriptionQuantityDate Captured Alcohol Use Details No Caffeine Use Details No Tobacco Use Status Ex-cigarette smoker Smoking Status Former smoker Smoking Tobacco Use Details Cigarette: No Details Available Cigarette: No Details Available 07/31/2016 [facility] 03[facility]27/[facility] Smoking Status 03/27/[facility] 03/27/[facility] 03/27/[facility] Status 03/27/[facility] Tobacco Smoking Status 03/27/2016 [facility] Smoking Status 03/27/[facility] Tobacco Smoking Status 03/27/2016 [facility] Tobacco Smoking Status Former Smoker 03/27/2016 [facility] Smoking Status (1 PPD) 03/27/2016 [facility] Smoking Status 03/27/2016 [facility] Smoking Status 03/27/2016 [facility] Smoking Status 03/27/2016 [facility] Smoking Status 03/27/2016 [facility] Smoking Status (1 PPD) 03/27/2016 [facility] Smoking Status 03/27/2016 [facility] Smoking Status 03/27/2016 [facility] Smoking Status 03/27/2016 [facility] TypeDescriptionQuantityDate Captured Unknown 03/25/2016 [facility] TypeDescriptionQuantityDate Captured Unknown 03/16/2016 [facility] TypeDescriptionQuantityDate Captured Alcohol Use Details No Caffeine Use Details No Tobacco Use Status Ex-cigarette smoker Smoking Status Former smoker Smoking Tobacco Use Details Cigarette: Age Started: 13, Age Stopped: 67, Years Used 52 Cigarette: 1 per day, Pack Year: 52 02/17/2016 [facility] TypeDescriptionQuantityDate Captured Unknown 01/27/2016 [facility] TypeDescriptionQuantityDate Captured Unknown 12/27/2015 [facility] TypeDescriptionQuantityDate Captured Alcohol Use Details No Caffeine Use Details No Tobacco Use Status No Smoking Status No 12/11/2015 [facility] TypeDescriptionQuantityDate Captured Alcohol Use Details No Caffeine Use Details No Tobacco Use Status No Smoking Status No 11/12/2015 [facility] TypeDescriptionQuantityDate Captured Alcohol Use Details No Caffeine Use Details No Tobacco Use Status No Smoking Status Former smoker Smoking Tobacco Use Details Cigarette: No Details Available Cigarette: Age Started: 13, Age Stopped: 67, Years Used 52 Cigarette: No Details Available Cigarette: 1 per day, Pack Year: 52 11/04/2015 [facility] TypeDescriptionQuantityDate Captured Unknown 09/11/2015 [facility] TypeDescriptionQuantityDate Captured Unknown 08/14/2015 [facility] TypeDescriptionQuantityDate Captured Unknown 08/01/2015 [facility] TypeDescriptionQuantityDate Captured Unknown 07/15/2015 [facility] Assessment and Plan No Data Provided for This Section Family History Value Date S ource Family MemberDiagnosisAge At OnsetStatus Mother Cardiovascular disease N Father Cardiovascular disease N Father Diabetes mellitus N 07/31/2016 [facility] Family MemberDiagnosisAge At OnsetStatus Mother Cardiovascular disease N Father Cardiovascular disease N Father Diabetes mellitus N 03/25/2016 [facility] Family MemberDiagnosisAge At OnsetStatus Mother Cardiovascular disease N Father Cardiovascular disease N Father Diabetes mellitus N 03/16/2016 [facility] Family MemberDiagnosisAge At OnsetStatus Mother Cardiovascular disease N Father Cardiovascular disease N Father Diabetes mellitus N 02/17/2016 [facility] Family MemberDiagnosisAge At OnsetStatus Mother Cardiovascular disease N Father Cardiovascular disease N Father Diabetes mellitus N 01/27/2016 [facility] Family MemberDiagnosisAge At OnsetStatus Mother Cardiovascular disease N Father Cardiovascular disease N Father Diabetes mellitus N 12/27/2015 [facility] Family MemberDiagnosisAge At OnsetStatus Mother Cardiovascular disease N Father Cardiovascular disease N Father Diabetes mellitus N 12/11/2015 [facility] Family MemberDiagnosisAge At OnsetStatus Mother Cardiovascular disease N Father Cardiovascular disease N Father Diabetes mellitus N 11/12/2015 [facility] Family MemberDiagnosisAge At OnsetStatus Mother Cardiovascular disease N Father Cardiovascular disease N Father Diabetes mellitus N 11/04/2015 [facility] Family MemberDiagnosisAge At OnsetStatus Mother Cardiovascular disease N Father Cardiovascular disease N Father Diabetes mellitus N 09/11/2015 [facility] Family MemberDiagnosisAge At OnsetStatus Mother Cardiovascular disease N Father Cardiovascular disease N Father Diabetes mellitus N 08/14/2015 [facility] Family MemberDiagnosisAge At OnsetStatus Mother Cardiovascular disease N Father Cardiovascular disease N Father Diabetes mellitus N 08/01/2015 [facility] Family MemberDiagnosisAge At OnsetStatus Mother Cardiovascular disease N Father Cardiovascular disease N Father Diabetes mellitus N 07/15/2015 [facility] Advance Directives Order Name Results Value Date Source Advance Directives Resuscitati on Resuscitation 07/31/2016 [facility] Life Support Life Support 07/31/2016 [facility] Intubation Intubation 07/31/2016 [facility] Antibiotics Antibiotics 07/31/2016 [facility] IV Fluid an d Support IV Fluid Support 07/31/2016 [facility] Advance Dir ectives DirectiveYes / NoEffective DateFile Name Unknown 03/25/2016 [facility] Advance Directives Advance Dir ectives DirectiveYes / NoEffective DateFile Name Unknown 03/16/2016 [facility] Advance Directives Advance Dir ectives DirectiveYes / NoEffective DateFile Name Unknown WARNING:The information contained in this section is historical and is provided for information only and does not constitute a legal document or any assurance that the information is still accurate. Please verify the information with the molina of the legal document before using it for clinical purposes. 02/17/2016 [facility] Advance Directives Advance Dir ectives DirectiveYes / NoEffective DateFile Name Unknown 01/27/2016 [facility] Advance Directives Advance Dir ectives DirectiveYes / NoEffective DateFile Name Unknown 12/27/2015 [facility] Advance Directives Advance Dir ectives DirectiveYes / NoEffective DateFile Name Unknown 12/11/2015 [facility] Advance Directives Advance Dir ectives DirectiveYes / NoEffective DateFile Name Unknown 11/12/2015 [facility] Advance Directives Advance Dir ectives DirectiveYes / NoEffective DateFile Name Unknown WARNING:The information contained in this section is historical and is provided for information only and does not constitute a legal document or any assurance that the information is still accurate. Please verify the information with the molina of the legal document before using it for clinical purposes. 11/04/2015 [facility] Advance Directives Advance Dir ectives DirectiveYes / NoEffective DateFile Name Unknown 09/11/2015 [facility] Advance Directives Advance Dir ectives DirectiveYes / NoEffective DateFile Name Unknown 08/14/2015 [facility] Advance Directives Advance Dir ectives DirectiveYes / NoEffective DateFile Name Unknown 08/01/2015 [facility] Advance Directives Advance Dir ectives DirectiveYes / NoEffective DateFile Name Unknown 07/15/2015 [facility] Functional Status No Data Provided for This Section
--- OUTSIDE RECORDS SUMMARY | 2020-05-01 13:11 | XMS REPORT | Continuity of Care Document ---
Author Organization Unknown Address Unknown Phone Unavailable Allergies Active Description Code Type Severity Reaction Onset Reported/Identified Relationship to Patient Clinical Status Yes No Known Drug Allergies [id number] Drug Allergy Unknown N/A 02/18/2015 Medications There is no data. Problems Date Dx Coded Attending Type Code Diagnosis Diagnosed By 02/22/2015 DARLENE MILLARD MD Ot 244 .9 02/22/2015 DARLENE MILLARD MD Ot 250.00 02/22/2015 DARLENE MILLARD MD Ot 272 .0 02/22/2015 DARLENE MILLARD MD Ot 401 .9 02/22/2015 DARLENE MILLARD MD Ot 426 .4 02/22/2015 DARLENE MILLARD MD Ot 443 .9 02/22/2015 DARLENE MILLARD MD Ot 486 02/22/2015 DARLENE MILLARD MD Ot 496 02/22/2015 VENICE PERALTA, DARLENE Trejo Ot 511 .0 02/22/2015 DARLENE MILLARD MD Ot 530.81 02/22/2015 VENICE PERALTA, DARLENE Trejo Ot 584 .9 02/22/2015 VENICE PERALTA, DARLENE Trejo Ot 787.91 02/22/2015 DARLENE MILLARD MD Ot V15.82 02/22/2015 DARLENE MILLARD MD Ot V45.89 03/01/2015 VENICE PREALTA, DARLENE Trejo Ot 242.90 03/01/2015 VENICE PERALTA, DARLENE Trejo Ot 250.00 03/01/2015 VENICE PERALTA, DARLENE Trejo Ot 272 .0 03/01/2015 DARLENE MILLARD MD Ot 401 .9 03/01/2015 DARLENE MILLARD MD Ot 414.01 03/01/2015 DARLENE MILLARD MD Ot 440 .0 03/01/2015 VENICE PERALTA, DARLENE Trejo Ot 440.20 03/01/2015 DARLENE MILLARD MD Ot 486 03/01/2015 DARLENE MILLARD MD Ot 496 03/01/2015 VENICE PERALTA, DARLENE Trejo Ot 510 .9 03/01/2015 VENICE PERALTA, DARLENE K Ot 530.81 03/01/2015 VENICE PERALTA, DARLENE Trejo Ot 560 .1 03/01/2015 VENICE PERALTA, DARLENE Trejo Ot 574.20 03/01/2015 ODEVA PERALTA, DARLENE Trejo Ot 716.90 03/01/2015 ODEVA PERALTA, DARLENE Trejo Ot 780.57 03/01/2015 ODEVA PERALTA, DARLENE Trejo Ot V15.82 03/01/2015 ODEVA PERALTA, DARLENE Trejo Ot V45.89 03/02/2015 VENICE PERALTA, DARLENE Trejo Ot 242.90 03/02/2015 VENICE PERALTA, DARLENE Trejo Ot 250.00 03/02/2015 VENICE PERALTA, DARLENE Trejo Ot 272 .0 03/02/2015 VENICE PERALTA, DARLENE Trejo Ot 401 .9 03/02/2015 VENICE PERALTA, DARLENE Trejo Ot 414.01 03/02/2015 VENICE PERALTA, DARLENE Trejo Ot 440 .0 03/02/2015 VENICE PERALTA, DARLENE Trejo Ot 440.20 03/02/2015 VENICE PERALTA, DARLENE Trejo Ot 486 03/02/2015 VENICE PERALTA, DARLENE Trejo Ot 496 03/02/2015 VENICE PERALTA, DARLENE Trejo Ot 510 .9 03/02/2015 VENICE PERALTA, DARLENE Trejo Ot 530.81 03/02/2015 VENICE PERALTA, DARLENE Trejo Ot 560 .1 03/02/2015 VENICE PERALTA, DARLENE Trejo Ot 574.20 03/02/2015 VENICE PERALTA, DARLENE Trejo Ot 716.90 03/02/2015 VENICE PERALTA, DARLENE Trejo Ot 780.57 03/02/2015 VENICE PERALTA, DARLENE Trejo Ot V15.82 03/02/2015 VENICE PERALTA, DARLENE Trejo Ot V45.89 03/03/2015 VENICE PERALTA, DARLENE Trejo Ot 242.90 03/03/2015 VENICE PERALTA, DARLENE Trejo Ot 250.00 03/03/2015 VENICE PERALTA, DARLENE Trejo Ot 272 .0 03/03/2015 VENICE PERALTA, DARLENE Trejo Ot 401 .9 03/03/2015 VENICE PERALTA, DARLENE Trejo Ot 414.01 03/03/2015 VENICE PERALTA, DARLENE K Ot 440 .0 03/03/2015 VENICE PERALTA, DARLENE K Ot 440.20 03/03/2015 ODEVA PERALTA, DARLENE K Ot 486 03/03/2015 ODEVA MD, DARLENE K Ot 496 03/03/2015 ODEVA PERALTA, DARLENE K Ot 510 .9 03/03/2015 ODEVA PERALTA, DARLENE K Ot 530.81 03/03/2015 ODEVA PERALTA, DARLENE K Ot 560 .1 03/03/2015 ODEVA PERALTA, DARLENE K Ot 574.20 03/03/2015 ODEVA PERALTA, DARLENE K Ot 716.90 03/03/2015 ODEVA PERALTA, DARLENE K Ot 780.57 03/03/2015 ODEVA PERALTA, DARLENE K Ot V15.82 03/03/2015 ODEVA PERALTA, DARLENE K Ot V45.89 03/04/2015 ODEVA PERALTA, DARLENE K Ot 242.90 03/04/2015 ODEVA PERALTA, DARLENE K Ot 250.00 03/04/2015 VENICE EPRALTA, DARLENE K Ot 272 .0 03/04/2015 VENICE PERALTA, DARLENE K Ot 401 .9 03/04/2015 VENICE PERALTA, DARLENE K Ot 414.01 03/04/2015 VENICE PERALTA, DARLENE K Ot 440 .0 03/04/2015 VENICE PERALTA, DARLENE K Ot 440.20 03/04/2015 VENICE PERALTA, DARLENE K Ot 486 03/04/2015 ODEVA PERALTA, DARLENE K Ot 496 03/04/2015 ODEVA PERALTA, DARLENE K Ot 510 .9 03/04/2015 VENICE PERALTA, DARLENE K Ot 530.81 03/04/2015 VENICE PERALTA, DARLENE K Ot 560 .1 03/04/2015 ODEVA PERALTA, DARLENE K Ot 574.20 03/04/2015 ODEVA PERALTA, DARLENE K Ot 716.90 03/04/2015 VENICE PERALTA, DARLENE Trejo Ot 780.57 03/04/2015 ODEVA PERALTA, DARLENE K Ot V15.82 03/04/2015 ODEVA PERALTA, DARLENE K Ot V45.89 03/05/2015 VENICE PERALTA, DARLENE K Ot 242.90 03/05/2015 VENICE PERALTA, DARLENE K Ot 250.00 03/05/2015 VENICE PERALTA, DARLENE K Ot 272 .0 03/05/2015 VENICE PERALTA, DARLENE K Ot 401 .9 03/05/2015 VENICE PERALTA, DARLENE K Ot 414.01 03/05/2015 VENICE PERALTA, DARLENE K Ot 440 .0 03/05/2015 ODEVA PERALTA, DARLENE K Ot 440.20 03/05/2015 ODEVA PERALTA, DARLENE K Ot 486 03/05/2015 ODEVA PERALTA, DARLENE K Ot 496 03/05/2015 ODEVA PERALTA, DARLENE K Ot 510 .9 03/05/2015 ODEVA PERALTA, DARLENE K Ot 530.81 03/05/2015 ODEVA PERALTA, DARLENE K Ot 560 .1 03/05/2015 VENICE PERALTA, DARLENE Trejo Ot 574.20 03/05/2015 VENICE PERALTA, DARLENE Trejo Ot 716.90 03/05/2015 VENICE PERALTA, DARLENE Trejo Ot 780.57 03/05/2015 VENICE PERALTA, DARLENE Trejo Ot V15.82 03/05/2015 VENICE PERALTA, DARLNEE Trejo Ot V45.89 03/05/2015 VENICE PERALTA, DARLENE K Ot 242.90 03/05/2015 VENICE PERALTA, DARLENE K Ot 250.00 03/05/2015 VENICE PERALTA, DARLENE K Ot 272 .0 03/05/2015 VENICE PERALTA, DARLENE Trejo Ot 401 .9 03/05/2015 VENICE PERALTA, DARLENE Trejo Ot 414.01 03/05/2015 VENICE PERALTA, DARELNE K Ot 440 .0 03/05/2015 VENICE PERALTA, DARLENE K Ot 440.20 03/05/2015 VENICE PERALTA, DARLENE Trejo Ot 486 03/05/2015 VENICE PERALTA, DARLENE K Ot 496 03/05/2015 VENICE PERALTA, DARLENE K Ot 510 .9 03/05/2015 VENICE PERALTA, DARLENE K Ot 530.81 03/05/2015 VENICE PERALTA, DARLENE Trejo Ot 560 .1 03/05/2015 VENICE PERALTA, DARLENE Trejo Ot 574.20 03/05/2015 VENICE PERALTA, DARLENE Trejo Ot 716.90 03/05/2015 VENICE PERALTA, DARLENE Trejo Ot 780.57 03/05/2015 VENICE PERALTA, DARLENE Trejo Ot V15.82 03/05/2015 VENICE PERALTA, DARLENE K Ot V45.89 03/06/2015 VENICE PERALTA, DARLENE K Ot 242.90 03/06/2015 VENICE PERALTA, DARLENE K Ot 250.00 03/06/2015 VENICE PERALTA, DARLENE K Ot 272 .0 03/06/2015 ODEVA PERALTA, DARLENE K Ot 401 .9 03/06/2015 ODEVA PERALTA, DARLENE K Ot 414.01 03/06/2015 ODEVA PERALTA, DARLENE K Ot 440 .0 03/06/2015 ODEVA PERALTA, DARLENE K Ot 440.20 03/06/2015 ODEVA PERALTA, DARLENE K Ot 486 03/06/2015 ODEVA PERALTA, DARLENE K Ot 496 03/06/2015 ODEVA PERALTA, DARLENE K Ot 510 .9 03/06/2015 VENICE PERALTA, DARLENE K Ot 530.81 03/06/2015 VENICE PERALTA, DARLENE Trejo Ot 560 .1 03/06/2015 VENICE PERALTA, DARLENE Trejo Ot 574.20 03/06/2015 VENICE PERALTA, DARLENE Trejo Ot 716.90 03/06/2015 VENICE PERALTA, DARLENE K Ot 780.57 03/06/2015 VENICE PERALTA, DARLENE K Ot V15.82 03/06/2015 VENICE PERALTA, DARLENE K Ot V45.89 03/06/2015 VENICE PERALTA, DARLENE Trejo Ot 242.90 03/06/2015 VENICE PERALTA, DARLENE Trejo Ot 250.00 03/06/2015 VENICE PERALTA, DARLENE Trejo Ot 272 .0 03/06/2015 VENICE PERALTA, DARLENE K Ot 401 .9 03/06/2015 VENICE PERALTA, DARLENE Trejo Ot 414.01 03/06/2015 VENICE PERALTA, DARLENE K Ot 440 .0 03/06/2015 VENICE PERALTA, DARLENE K Ot 440.20 03/06/2015 VENICE PERALTA, DARLENE K Ot 486 03/06/2015 VENICE PERALTA, DARLENE K Ot 496 03/06/2015 VENICE PERALTA, DARLENE K Ot 510 .9 03/06/2015 VENICE PERALTA, DARLENE K Ot 530.81 03/06/2015 VENICE PERALTA, DARLENE Trejo Ot 560 .1 03/06/2015 VENICE PERALTA, DARLENE K Ot 574.20 03/06/2015 VENICE PERALTA, DARLENE K Ot 716.90 03/06/2015 VENCIE PERALTA, DARLENE K Ot 780.57 03/06/2015 VENICE PERALTA, DARLENE K Ot V15.82 03/06/2015 VENICE PERALTA, DARLENE Trejo Ot V45.89 03/07/2015 VENICE PERALTA, DARLENE K Ot 242.90 03/07/2015 ODEVA PERALTA, DARLENE K Ot 250.00 03/07/2015 VENICE PERALTA, DARLENE K Ot 272 .0 03/07/2015 VENICE PERALTA, DARLENE Trejo Ot 401 .9 03/07/2015 ODEVA PERALTA, DARLENE Trejo Ot 414.01 03/07/2015 VENICE PERALTA, DARLENE Trejo Ot 440 .0 03/07/2015 VENICE PERALTA, DARLENE Trejo Ot 440.20 03/07/2015 VENICE PERALTA, DARLENE Trejo Ot 486 03/07/2015 VENICE PERALTA, DARLENE Trejo Ot 496 03/07/2015 VENICE PERALTA, DARLENE Trejo Ot 510 .9 03/07/2015 VENICE PERALTA, DARLENE Trejo Ot 530.81 03/07/2015 VENICE PERALTA, DARLENE Trejo Ot 560 .1 03/07/2015 VENICE PERALTA, DARLENE Trejo Ot 574.20 03/07/2015 VENICE PERALTA, DARLENE Trejo Ot 716.90 03/07/2015 VENICE PERALTA, DARLENE Trejo Ot 780.57 03/07/2015 VENICE PERALTA, DARLENE Trejo Ot V15.82 03/07/2015 VENICE PERALTA, DARLENE K Ot V45.89 03/07/2015 VENICE PERALTA, DARLENE Trejo Ot 242.90 03/07/2015 VENICE PERALTA, DARLENE Trejo Ot 250.00 03/07/2015 VENICE PERALTA, DARLENE Trejo Ot 272 .0 03/07/2015 VENICE PERALTA, DARLENE K Ot 275 .2 03/07/2015 VENICE PERALTA, DARLENE K Ot 285 .9 03/07/2015 ODEVA PERALTA, DARLENE Trejo Ot 401 .9 03/07/2015 VENICE PERALTA, DARLENE Trejo Ot 414.01 03/07/2015 VENICE PERALTA, DARLENE Trejo Ot 440 .0 03/07/2015 VENICE PERALTA, DARLENE Trejo Ot 440.20 03/07/2015 VENICE PERALTA, DARLENE Trejo Ot 486 03/07/2015 VENICE PERALTA, DARLENE Trejo Ot 496 03/07/2015 VENICE PERALTA, DARLENE Trejo Ot 510 .9 03/07/2015 DARLENE MILLARD MD Ot 518 .0 03/07/2015 DARLENE MILLARD MD Ot 530.81 03/07/2015 DARLENE MILLARD MD Ot 560 .1 03/07/2015 DARLENE MILLARD MD Ot 574.10 03/07/2015 DARLENE MILLARD MD Ot 574.20 03/07/2015 DARLENE MILLARD MD Ot 716.90 03/07/2015 DARLENE MILLARD MD Ot 780.57 03/07/2015 DARLENE MILLARD MD Ot 799.02 03/07/2015 DARLENE MILLARD MD Ot V15.82 03/07/2015 DARLENE MILLARD MD Ot V45.89 05/09/2015 ISIS PERALTA, GIANFRANCO S Ot 511.9 05/09/2015 ISIS PERALTA, GIANFRANCO S Ot 511.9 05/09/2015 ISIS PERALTA, GIANFRANCO S Ot 511.9 05/10/2015 ISIS PERALTA, GIANFRANCO S Ot 511.9 06/19/2015 ISIS PERALTA, GIANFRANCO S Ot 511.9 04/10/2020 SRIKANTH EDWARDS MD Ot E11. 9 TYPE 2 DIABETES MELLITUS WITHOUT COMPLIC 04/10/2020 SRIKANTH EDWARDS MD Ot E78. 2 MIXED HYPERLIPIDEMIA 04/10/2020 SRIKANTH EDWARDS MD, Ot I10 ESSENTIAL (PRIMARY) HYPERTENSION 04/10/2020 SRIKANTH EDWARDS MD Ot I73. 9 PERIPHERAL VASCULAR DISEASE, UNSPECIFIED 04/10/2020 SRIKANTH EDWARDS MD, Ot K80. 20 CALCULUS OF GALLBLADDER W/O CHOLECYSTITI 04/10/2020 SRIKANTH EDWARDS MD Ot N20. 0 CALCULUS OF KIDNEY Procedures There is no data. Results Test Result Range [id number] - 04/08/20 08:56 Serum or plasma urea nitrogen measurement (mass/volume ) 18 mg/dL 7-18 Serum or plasma creatinine measurement (mass/volume) 1.03 mg/dL 0.60-1.30 Serum or plasma urea nitrogen/creatinine mass ratio 17 NRG Serum or plasma creatinine measurement w ith calculation of estimated glomerular filtration rate 52 NRG Encounters ACCT No. Visit Date/Time Discharge Status Pt. Type Provider Facility Loc./Unit Complaint [id number] 04/08/2020 08:47:00 020 23:59:59 CLS Outpatient GRACE PERALTA, SRIKANTH Gilliam [facility] RAD ESSENTIAL HYPERTENSION, DIABETES MELLITUS [id number] 03/18/2015 08:58:00 015 23:59:59 CLS Outpatient ISIS PERALTA, GIANFRANCO Beck [facility] RAD [id number] 02/25/2015 14:55:00 015 11:38:00 DIS Inpatient DARLENE MILLARD MD [facility] SURGICAL [id number] 02/18/2015 12:37:00 015 14:10:00 DIS Inpatient DARLENE MILLARD MD [facility] 4TH
--- NOTE | 2020-05-01 13:21 | NUR ---
TO SONO PER W/C
[2020-05-01] MEDS ORDERED: DICL100G18 TP (14:14)
[2020-05-01] MEDS ORDERED: METH-313 PO (14:14)
[2020-05-01] MEDS ORDERED: cloNIDine 0.1 MG (CATAPRES) TAB PO ONE (14:15)
[2020-05-01] MEDS ORDERED: AMLO5TAB4 PO (14:23)
--- NOTE | 2020-05-01 14:51 | NUR ---
DAUGHTER CALLEAD BY Michael SHAW APRN AND EXPLAINED TEST RESULTS AND DISCHARGE INSTRUCTIONS. CALLED DAUGHTER BACK AND INFORMED HR THAT WE WOULD CALL HER WHEN SHE IS READY
[2020-05-01 15:05] VITALS: BP 189/75
--- NOTE | 2020-05-01 15:58 | Diagnostic Imaging Report ---
PROCEDURE: US LEFT UP EXT ARTERIAL [id number] TECHNIQUE: Multiple realtime grayscale images were obtained over the left upper extremity in various projections. Duplex Doppler and color Doppler images were also obtained. INDICATION: Weak radial pulse. FINDINGS: Predominantly biphasic waveforms throughout the left upper extremity arterial system is noted. Velocities are unremarkable. No high-grade stenosis or occlusion is detected. IMPRESSION: Unremarkable left upper extremity arterial Doppler. Dictated by: Dictated on workstation # [id number]
== END 2020-05-01 15:10 | disposition home or self-care (01) ==
LOC: EDUNIT# 11:24 → ER 11:25
DX: M25.512 Pain in left shoulder (principal); I10 Essential (primary) hypertension; J44.9 Chronic obstructive pulmonary disease, unspecified; E78.00 Pure hypercholesterolemia, unspecified; E11.9 Type 2 diabetes mellitus without complications; K21.9 Gastro-esophageal reflux disease without esophagitis; Z82.49 Family history of ischemic heart disease and other diseases of the circulatory system; Z79.84 Long term (current) use of oral hypoglycemic drugs; W17.89XA Other fall from one level to another, initial encounter
CPT/HCPCS: 36415; 71275; 80053; 84484; 85025; 93005; 93931; 96374; 96376

== ENCOUNTER → 2020-05-10 | Outpatient (CLI) | payer MEDICARE ==
[~2020-05-10] MED LIST changes: +AMLO5TAB4 PO; +DICL100G18 TP; +METH-313 PO
== END ==
LOC: CARD 12:00
PROVIDERS: ATTEND Internal Medicine Cardiovascular Disease
DX: I73.9 Peripheral vascular disease, unspecified (principal); I10 Essential (primary) hypertension; E78.2 Mixed hyperlipidemia; I35.1 Nonrheumatic aortic (valve) insufficiency
CPT/HCPCS: 93306

== ENCOUNTER 2021-06-29 15:30 | Emergency (ER) | payer MEDICARE ==
[~2021-06-29] VITALS: Ht 160 cm; Wt 57.0 kg
[2021-06-29] MEDS ORDERED: BISACODYL 10 MG SUPP (DULCOLAX) PR STA (15:51)
--- NOTE | 2021-06-29 15:58 | ED Abdominal Pain ---
General Chief Complaint: Abdominal/GI Problems Stated Complaint: CONSTIPATION/ABD PAIN Nursing Triage Note: NO BM SINCE WEDNESDAY History of Present Illness Date Seen by Provider: Jun 29, 2021 Time Seen by Provider: 15:35 Initial Comments 76-year-old female presents for abdominal pain with constipation that is been present since 06/24/2021. She lives in [place] and was on a 3-day car ride to get here. She has stage III kidney disease and was on Hospice from December until a few weeks ago. She is at home, with care and limited mobility. She has chronic constipation and is treated with stool softeners, Miralax, and fleets enemas. Daughter reports she is passing very small, hard stools. She has hemorrhoids and has been cleaning them with Tucks pads. She reports decreased appetite today, no nausea or vomiting. She has a catheter. She reports drinking water, regularly. Timing/Duration: 3-4 Days Severity/Quality: Moderate Location: Generalized Abdomen Radiation: No Radiation Associated Symptoms: No Back Pain, No Heartburn, No Nausea/Vomiting Allergies and Home Medications Allergies Coded Allergies: lidocaine (Verified Allergy, Unknown, 06/29/21) Patient Home Medication List Home Medication List Reviewed: Yes Albuterol Sulfate (Albuterol Sulfate Hfa) 8.5 Gm Aer.w.adap, 1 PUFF PO Q4H PRN for SHORTNESS OF BREATH, (Reported) Entered as Reported by: CHANTELLE JULES on 02/26/15 0943 Amlodipine Besylate (Norvasc) 5 Mg Tablet, 5 MG PO DAILY Prescribed by: MAURILIO HARO on 05/01/20 1423 Atorvastatin Calcium (Atorvastatin Calcium) 10 Mg Tablet, 10 MG PO DAILY, (Reported) Entered as Reported by: FESTUS HOBBS on 02/18/15 1015 Azithromycin (Zithromax Tab) 250 Mg Tab, 2 TAB PO DAILY Prescribed by: DARLENE MILLARD on 02/22/15 1244 Bisacodyl (Dulcolax) 10 Mg Supp.rect, 10 MG RC DAILY PRN for CONSTIPATION-3RD LINE Prescribed by: GRADY WOODY on 06/29/21 1641 Cefdinir (Omnicef Capsule) 300 Mg Capsule, 300 MG PO BID Prescribed by: DARLENE MILLARD on 02/22/15 1244 Cefdinir (Cefdinir) 300 Mg Capsule, 300 MG PO BID Prescribed by: GRADY WOODY on 06/29/21 1641 Diclofenac Sodium (Voltaren) 100 Gm Gel..gram., 100 GM TP Q6H PRN for PAIN- MODERATE (5-7) Prescribed by: MAURILIO HARO on 05/01/20 1414 Glipizide (Glipizide) 5 Mg Tablet, 5 MG PO DAILY, (Reported) Entered as Reported by: FESTUS HOBBS on 02/18/15 1015 Hydrocodone Bit/Acetaminophen (Hydrocodone-Apap 7.5-325 Tb) 1 Tab Tablet, 1 TAB PO QID PRN for PAIN, (Reported) Entered as Reported by: AALIYAH RANDALL on 02/25/15 1743 Hydrocodone Bit/Acetaminophen (Lortab 7.5 Mg Tablet) 1 Ea Tablet, 1-2 EACH PO Q6H PRN for PAIN Prescribed by: GIANFRANCO MARINELLI on 03/07/15 1011 Levothyroxine Sodium (Levothyroxine 100 Mcg Tab) 100 Mcg Tablet, 100 MCG PO LESLIE LY, (Reported) Entered as Reported by: FESTUS HOBBS on 02/18/15 1015 Metformin Hcl (Metformin Hcl) 1,000 Mg Tablet, 1,000 MG PO BID, (Reported) Entered as Reported by: CHANTELLE JULES on 02/26/15 0943 Methocarbamol (Robaxin-750) 750 Mg Tablet, 750 MG PO Q6H PRN for PAIN-MODERATE (5-7) Prescribed by: MAURILIO HARO on 05/01/20 1414 Metoprolol Tartrate (Metoprolol Tartrate) 50 Mg Tablet, 50 MG PO BID, (Reported) Entered as Reported by: FESTUS HOBBS on 02/18/15 1017 Ranitidine Hcl (Ranitidine Hcl) 150 Mg Capsule, 150 MG PO DAILY PRN for HEARTBURN, (Reported) Entered as Reported by: BLACK REGALADO on 02/18/15 1716 Review of Systems Review of Systems Constitutional: no symptoms reported, see HPI Gastrointestinal: See HPI, Abdominal Pain, Constipated All Other Systems Reviewed Negative Unless Noted: Yes Past Mnixgbx-Lzjnea-Kzqhvb Hx Patient Social History Smoking Status: Former Smoker Substance use?: No Alcohol Use?: No Seasonal Allergies Seasonal Allergies: No Past Medical History Appendectomy, Vascular Surgery Respiratory: Yes Pneumonia, Sleep Apnea, COPD Cardiac: Yes High Cholesterol, Hypertension Neurological: No Reproductive Disorders: No Renal Failure Gastrointestinal: Yes Abdominal Hernia, Gastroesophageal Reflux Musculoskeletal: Yes Arthritis Endocrine: Yes Hyperthyroidism, Diabetes, Non-Insulin dep Cataract Loss of Vision: Denies Hearing Impairment: Hard of Hearing Cancer: No Psychosocial: No Integumentary: No Blood Disorders: No Family Medical History Reviewed Nursing Family Hx Abdominal aortic aneurysm 19 MOTHER G8 SISTER G8 SISTER Congenital heart disease 19 FATHER Physical Exam Vital Signs Vital Signs - First Documented 06/29/21 15:35 Temp 36.7 Pulse 93 Resp 16 B/P (MAP) 178/79 (112) Pulse Ox 94 O2 Delivery Room Air Capillary Refill : Less Than 3 Seconds Height/Weight/BMI Height: 5'3.00" Weight: 149lbs. 5.0oz. 67.679463vw; 22.00 BMI Method:Stated General Appearance: WD/WN, no apparent distress HEENT: PERRL/EOMI, normal ENT inspection, pharynx normal, other (oral mucosa, pink and moist) Neck: non-tender, full range of motion, supple, normal inspection Respiratory: chest non-tender, lungs clear, normal breath sounds Cardiovascular: normal peripheral pulses, regular rate, rhythm, no edema Gastrointestinal: soft, abnormal bowel sounds (hypoactive BS), distended; No rebound; tenderness (generalized) Extremities: normal range of motion, non-tender, no pedal edema, no calf tenderness Neurologic/Psychiatric: no motor/sensory deficits, alert, normal mood/affect, oriented x 3 Skin: normal color, warm/dry Progress/Results/Core Measures Results/Orders Lab Results Laboratory Tests Test 06/29/21 15:54 06/29/21 16:27 Range/Units Urine Color YELLOW Urine Clarity CLOUDY Urine pH 7.0 5-9 Urine Specific [place] 1.025 H 1.016-1.022 Urine Protein 3+ H NEGATIVE Urine Glucose (UA) NEGATIVE NEGATIVE Urine Ketones NEGATIVE NEGATIVE Urine Nitrite POSITIVE H NEGATIVE Urine Bilirubin NEGATIVE NEGATIVE Urine Urobilinogen 0.2 < = 1.0 MG/DL Urine Leukocyte Esterase TRACE H NEGATIVE Urine RBC (Auto) TRACE-I NEGATIVE Urine RBC 5-10 H /HPF Urine WBC 25-50 H /HPF Urine Squamous Epithelial Cells 0-2 /HPF Urine Crystals NONE /LPF Urine Bacteria LARGE H /HPF Urine Casts NONE /LPF Urine Mucus NEGATIVE /LPF Urine Culture Indicated YES White Blood Count 14.4 H 4.3-11.0 10^3/uL Red Blood Count 4.58 3.80-5.11 10^6/uL Hemoglobin 13.4 11.5-16.0 g/dL Hematocrit 42 35-52 % Mean Corpuscular Volume 92 80-99 fL Mean Corpuscular Hemoglobin 29 25-34 pg Mean Corpuscular Hemoglobin Concent 32 32-36 g/dL Red Cell Distribution Width 13.8 10.0-14.5 % Platelet Count 225 130-400 10^3/uL Mean Platelet Volume 10.9 9.0-12.2 fL Immature Granulocyte % (Auto) 0 % Neutrophils (%) (Auto) 73 42-75 % Lymphocytes (%) (Auto) 20 12-44 % Monocytes (%) (Auto) 5 0-12 % Eosinophils (%) (Auto) 0 0-10 % Basophils (%) (Auto) 0 0-10 % Neutrophils # (Auto) 9.5 H 1.8-7.8 10^3/uL Lymphocytes # (Auto) 2.6 1.0-4.0 10^3/uL Monocytes # (Auto) 0.7 0.0-1.0 10^3/uL Eosinophils # (Auto) 0.1 0.0-0.3 10^3/uL Basophils # (Auto) 0.1 0.0-0.1 10^3/uL Immature Granulocyte # (Auto) 0.1 0.0-0.1 10^3/uL Neutrophils % (Manual) 60 % Lymphocytes % (Manual) 20 % Monocytes % (Manual) 7 % Metamyelocytes % 3 % Reactive Lymphocytes 7 % Blast Cells 3 % Microcytosis SLIGHT Sodium Level 140 135-145 MMOL/L Potassium Level 4.2 3.6-5.0 MMOL/L Chloride Level 108 H 98-107 MMOL/L Carbon Dioxide Level 20 L 21-32 MMOL/L Anion Gap 12 5-14 MMOL/L Blood Urea Nitrogen 24 H 7-18 MG/DL Creatinine 1.03 0.60-1.30 MG/DL Estimat Glomerular Filtration Rate 52 BUN/Creatinine Ratio 23 Glucose Level 223 H 70-105 MG/DL Calcium Level 9.2 8.5-10.1 MG/DL Corrected Calcium 9.7 8.5-10.1 MG/DL Total Bilirubin 0.7 0.1-1.0 MG/DL Aspartate Amino Transf (AST/SGOT) 16 5-34 U/L Alanine Aminotransferase (ALT/SGPT) 27 0-55 U/L Alkaline Phosphatase 80 40-136 U/L Total Protein 6.7 6.4-8.2 GM/DL Albumin 3.4 3.2-4.5 GM/DL My Orders Orders - GRADY WOODY Ua Culture If Indicated (06/29/21 15:37) Abdomen/Kub 1view (06/29/21 15:51) Bisacodyl Suppository (Dulcolax Supposit (06/29/21 15:51) Cbc With Automated Diff (06/29/21 15:51) Comprehensive Metabolic Panel (06/29/21 15:51) Urine Culture (06/29/21 15:54) Manual Differential (06/29/21 16:27) Vital Signs/I&O 06/29/21 06/29/21 15:35 17:37 Temp 36.7 Pulse 93 91 Resp 16 16 B/P (MAP) 178/79 (112) 196/71 Pulse Ox 94 95 O2 Delivery Room Air Room Air Blood Pressure Mean: 112 Progress Progress Note : Time: 15:35 Progress Note Patient seen and evaluated, will obtain labs, KUB, Dulcolax suppository and reevaluate. 1620 patient has passed small soft stool and has some water stool. No external hemorrhoids noted, when suppository placed. No skin ulcers or breakdown. UA shows UTI, she had one about 3-4 weeks ago. Daughter believes she was treated with Amoxicillin. KUB shows retained stool, no bowel obstruction. 1700 discussed elevated glucose, her last HgAIc was 7, her PCP doesn't want to start medication at this time. She has glucometer at home but does not check it regularly. 1720 Patient passed more stool. Reports less abdominal pain. No N/V. Discharge instructions and return precautions reviewed with the patient. All questions answered. Diagnostic Imaging Diagonstic Imaging: Xray Plain Films/CT/US/NM/MRI: abdomen Comments NAME: MARTHA RICKS MED REC#: [id number] PT STATUS: REG ER : 1945 PHYSICIAN: GRADY WOODY ADMIT DATE: 06/29/21/ER Draft Date of Exam:06/29/21 ABDOMEN/KUB 1VIEW CLINICAL INDICATIONS: Patient with no BM since Wednesday. EXAM: X-ray of the abdomen, supine view. COMPARISON: CT scan of the abdomen and pelvis without contrast dated 02/25/2015. FINDINGS: There is no evidence of intestinal obstruction. There are large amounts of stool in the rectosigmoid region. There is a small to moderate amount of stool in the right colon. There is no intra-abdominal free air. Likely multiple vascular calcifications involving both renal shadows which is also noted on prior CT. There are degenerative spurs involving the thoracic and lumbar spine. A vascular stent is overlying the left groin region. IMPRESSION: 1: There is no evidence of intestinal obstruction. There is no intra-abdominal free air. 2: There are large amounts of stool in the rectosigmoid region. Dictated on workstation # [id number] Dict: 06/29/21 1609 Trans: 06/29/21 1615 [facility] [id number] Interpreted by: CELSO MEJÍA MD Electronically signed by: Reviewed: Reviewed by Me Departure Impression Primary Impression: Abdominal pain Qualified Codes: R10.84 - Generalized abdominal pain Additional Impressions: Constipation Qualified Codes: K59.00 - Constipation, unspecified Chronic kidney disease Qualified Codes: N18.30 - Chronic kidney disease, stage 3 unspecified Hyperglycemia Disposition: HOME, SELF-CARE Condition: Stable Departure-Patient Inst. Decision time for Depature: 17:00 Referrals: ANGELA MARTINEZ MD (PCP/Family) Primary Care Physician Patient Instructions: Chronic Kidney Disease (DC), Constipation, Adult (DC), Hyperglycemia, Adult (DC) Add. Discharge Instructions: Increase water intake. Check glucose and document. Follow up with Dr. Martinez if it remains elevated. Adhere to a low sugar, low carb diet. Continue home medications. Take stool softener twice daily and Miralx daily, until she is having daily BM. Use Fleets Enema or Dulcolax suppository, if she doesn't pass a stool in 2-3 days. Apply barrier cream to buttocks, as needed (Calmoseptin, Aquafor, or Desitin). Apply Tucks bads to rectum and Preparation H cream. Take antibiotics, for UTI. Eat yogurt daily. Return to Emergency Dept for new, urgent health care needs. All discharge instructions reviewed with patient and/or family. Voiced understanding. Scripts Cefdinir (Cefdinir) 300 Mg Capsule 300 MG PO BID, #10 CAP 0 Refills Prov: GRADY WOODY 06/29/21 Bisacodyl (Dulcolax) 10 Mg Supp.rect 10 MG RC DAILY PRN for CONSTIPATION-3RD LINE, #10 SUPP.RECT 0 Refills Prov: GRADY WOODY 06/29/21 GRADY WOODY Jun 29, 2021 15:58
[2021-06-29 16:05] LABS: BILIRUBIN,URINE NEGATIVE (NEGATIVE); CLARITY,URINE CLOUDY; COLOR,URINE YELLOW; GLUCOSE, URINE (UA) NEGATIVE (NEGATIVE); KETONES,URINE NEGATIVE (NEGATIVE); LEUKOCYTE ESTERASE ,URINE TRACE (NEGATIVE); NITRITE,URINE POSITIVE (NEGATIVE); PROTEIN,URINE 3+ (NEGATIVE)
[2021-06-29 16:14] LABS: BACTERIA,URINE LARGE /HPF; SQUAMOUS EPITHELIAL CELL,UR 0-2 /HPF; WBC,URINE 25-50 /HPF
--- NOTE | 2021-06-29 16:16 | Diagnostic Imaging Report ---
CLINICAL INDICATIONS: Patient with no BM since Wednesday. EXAM: X-ray of the abdomen, supine view. COMPARISON: CT scan of the abdomen and pelvis without contrast dated 02/25/2015. FINDINGS: There is no evidence of intestinal obstruction. There are large amounts of stool in the rectosigmoid region. There is a small to moderate amount of stool in the right colon. There is no intra-abdominal free air. Likely multiple vascular calcifications involving both renal shadows which is also noted on prior CT. There are degenerative spurs involving the thoracic and lumbar spine. A vascular stent is overlying the left groin region. IMPRESSION: 1: There is no evidence of intestinal obstruction. There is no intra-abdominal free air. 2: There are large amounts of stool in the rectosigmoid region. Dictated by: Dictated on workstation # [id number]
[2021-06-29 16:39] LABS: BASOPHILS # (AUTO) 0.1 10^3/uL (0.0-0.1); BASOPHILS % (AUTO) 0 % (0-10); EOSINOPHILS # (AUTO) 0.1 10^3/uL (0.0-0.3); EOSINOPHILS % (AUTO) 0 % (0-10); LYMPHOCYTES # (AUTO) 2.6 10^3/uL (1.0-4.0); LYMPHOCYTES % (AUTO) 20 % (12-44); MEAN CORPUSCULAR HEMOGLOBIN 29 pg (25-34); MEAN CORPUSCULAR HGB CONC 32 g/dL (32-36); MEAN CORPUSCULAR VOLUME 92 fL (80-99); MEAN PLATELET VOLUME 10.9 fL (9.0-12.2); MONOCYTES # (AUTO) 0.7 10^3/uL (0.0-1.0); MONOCYTES % (AUTO) 5 % (0-12); NEUTROPHILS # (AUTO) 9.5 10^3/uL (1.8-7.8); NEUTROPHILS % (AUTO) 73 % (42-75)
[2021-06-29] MEDS ORDERED: BISA10SU58 RC (16:41)
[2021-06-29] MEDS ORDERED: CEFD300C3 PO (16:41)
[2021-06-29 16:44] LABS: ALBUMIN 3.4 GM/DL (3.2-4.5); POTASSIUM 4.2 MMOL/L (3.6-5.0); WHITE BLOOD COUNT 14.4 10^3/uL (4.3-11.0)
[2021-06-29 16:45] LABS: CALCIUM 9.2 MG/DL (8.5-10.1); HEMATOCRIT 42 % (35-52); HEMOGLOBIN 13.4 g/dL (11.5-16.0); PLATELET COUNT 225 10^3/uL (130-400)
[2021-06-29 16:46] LABS: TOTAL PROTEIN 6.7 GM/DL (6.4-8.2)
[2021-06-29 16:48] LABS: BILIRUBIN,TOTAL 0.7 MG/DL (0.1-1.0)
[2021-06-29 16:50] LABS: CREATININE SERUM 1.03 MG/DL (0.60-1.30)
[2021-06-29 17:22] LABS: BLAST CELLS 3 %; LYMPHOCYTES % (MANUAL) 20 %; METAMYELOCYTES % 3 %; MICROCYTOSIS SLIGHT; MONOCYTES % (MANUAL) 7 %; NEUTROPHILS % (MANUAL) 60 %; REACTIVE LYMPHOCYTES 7 %
[2021-06-29 17:37] VITALS: BP 196/71
== END 2021-06-29 17:37 | disposition home or self-care (01) ==
LOC: EDUNIT# 15:30 → ER 15:34
DX: K59.00 Constipation, unspecified (principal); I12.9 Hypertensive chronic kidney disease with stage 1 through stage 4 chronic kidney disease, or unspecified chronic kidney disease; E11.22 Type 2 diabetes mellitus with diabetic chronic kidney disease; N18.30 Chronic kidney disease, stage 3 unspecified; E11.65 Type 2 diabetes mellitus with hyperglycemia; G47.30 Sleep apnea, unspecified; E78.00 Pure hypercholesterolemia, unspecified; E05.90 Thyrotoxicosis, unspecified without thyrotoxic crisis or storm; J44.9 Chronic obstructive pulmonary disease, unspecified; K21.9 Gastro-esophageal reflux disease without esophagitis; Z87.891 Personal history of nicotine dependence; Z79.899 Other long term (current) drug therapy; Z79.84 Long term (current) use of oral hypoglycemic drugs
CPT/HCPCS: 36415; 74018; 80053; 81000; 85007; 85027; 87077; 87088; 87186